=== PATIENT | female | born 1940 | race Caucasian/White ===

== ENCOUNTER → 2020-08-07 13:08 | Outpatient (BNVA) | payer MEDICARE, SELFPAY | PROVIDERS: PCP Internal Medicine; Referring Provider Internal Medicine; Visit Provider Internal Medicine | DX: I26.99 Other pulmonary embolism without acute cor pulmonale (principal); Z51.81 Encounter for therapeutic drug level monitoring; Z79.01 Long term (current) use of anticoagulants | CPT/HCPCS: 85610 ==

== ENCOUNTER → 2020-08-11 08:46 | Outpatient (REF) | payer MEDICARE, SELFPAY | LOC: HO.SL 08:46 | PROVIDERS: PCP Internal Medicine; Visit Provider Internal Medicine | DX: Z13.89 Encounter for screening for other disorder (principal) ==

== ENCOUNTER → 2020-08-18 09:51 | Outpatient (BNVA) | payer MEDICARE, SELFPAY | PROVIDERS: PCP Internal Medicine; Visit Provider Orthopaedic Surgery | DX: Z76.89 Persons encountering health services in other specified circumstances (principal) ==

== ENCOUNTER 2020-08-27 10:41 | Outpatient (REF) | payer MEDICARE, SELFPAY ==
--- NOTE | 2020-08-27 10:47 | MM_ITS ---
EXAMINATION: MM SCREENING DIGITAL BREAST TOMOSYNTHESIS, LEFT CLINICAL INFORMATION: Screening. Asymptomatic. Status post right mastectomy. COMPARISON: Mammography: August 22, 2019 and studies dating back to August 15, 2015 TECHNIQUE: Digital breast tomosynthesis is performed in both the craniocaudal and mediolateral oblique views along with computer-aided detection (CAD). Synthesized 2D images are generated from the tomosynthesis. Exaggerated craniocaudal view also performed. FINDINGS: The breasts are heterogeneously dense, which may obscure small masses (ACR BI-RADS breast composition Category c). There are no significant masses, abnormal calcifications, or other abnormalities. MM/MM tomosynthesis screening LT IMPRESSION: There are no significant changes from prior study. ASSESSMENT: BI-RADS 1: Negative RECOMMENDATION: Routine annual mammography screening. This patient's information was entered into a reminder system with a target due date for their next mammogram.
--- NOTE | 2020-08-27 10:47 | MM_ITS ---
EXAMINATION: BONE DENSITOMETRY CLINICAL INDICATION: Age-related osteoporosis without current pathological fracture. COMPARISON: Previous BD dated 08/18/2017 and baseline BD dated 01/10/2009. TECHNIQUE: Using a [employer] DXA System (software version: 13.1) manufactured by [employer], dual-energy x-ray absorptiometry was performed of the lumbar spine and left hip. The images are of good technical quality. Summary results are attached. FINDINGS: AP SPINE L1-L4: Current: BMD 0.975 g/cm2, Z-score 0.3, T-score -1.7, osteopenia, 8.9% increase from previous, 2.7% increase from baseline (<5% change is not significant). Prior: BMD 0.895 g/cm2. Baseline: BMD 0.949 g/cm2. LEFT FEMUR, NECK: Current: BMD 0.762 g/cm2, Z-score 0.2, T-score -2.0, osteopenia. Prior: BMD 0.800 g/cm2. Baseline: BMD 0.861 g/cm2. LEFT FEMUR, TOTAL: Current: BMD 0.806 g/cm2, Z-score 0.4, T-score -1.6, osteopenia, 6.5% decrease from previous, 15.2% decrease from baseline (<5% change is not significant). Prior: BMD 0.862 g/cm2. Baseline: BMD 0.950 g/cm2. IDENTIFIED RISK FACTORS: Rheumatoid arthritis. Renal disease. Low calcium intake. Secondary osteoporosis (early menopause). Hysterectomy. Bilateral oophorectomy. Thiazide. HISTORY OF FRACTURE: None listed. MEDICATIONS: Calcium supplement and/or multivitamin. MM/XR DEXA axial skeleton IMPRESSION: 1. DIAGNOSIS: Osteopenia based on the lowest T-score value of -2.0 in the femoral neck applying World Health Organization criteria. 2. 10-YEAR FRACTURE RISK PREDICTION, FRAX: Major osteoporotic fracture (clinical spine, forearm, hip or shoulder) 17.9%. Hip fracture 5.7%. 3. Treatment Recommendations: NOF guidelines recommend consideration for treatment in postmenopausal women and men age 50 and older presenting with the following: -A hip or vertebral (clinical or morphometric) fracture. -T-score less than or equal to -2.5 at the femoral neck or spine after appropriate evaluation to exclude secondary causes. -Low bone mass at the hip or spine and a 10-year fracture probability by FRAX of greater than or equal to 3% for hip fracture or greater than or equal to 20% for major osteoporotic fracture based on the [place] adapted WHO algorithm. 4. Other Recommendations: All treatment decisions require clinical judgment and consideration of individual patient factors, including patient preferences, comorbidities, previous drug use, risk factors not captured in the FRAX model (e.g. frailty, falls, vitamin D deficiency, increased bone turnover, interval significant decline in bone density) and possible under or overestimation of fracture risk by FRAX. Additional medical evaluation for secondary cause of low bone mineral density may be appropriate. FUTURE SCAN RECOMMENDATION: People with diagnosed cases of osteoporosis or at high risk for fracture should have regular bone mineral density tests. For patients eligible for Medicare, routine testing is allowed once every 2 years. The testing frequency can be increased to one year for patients who have rapidly progressing disease, those who are receiving or discontinuing medical therapy to restore bone mass, or have additional risk factors.
== END 2020-08-27 10:42 | disposition home or self-care (01) ==
LOC: HO.MAMMO 10:41
PROVIDERS: PCP Internal Medicine; Visit Provider Internal Medicine
DX: K22.70 Barrett's esophagus without dysplasia (principal); Z86.711 Personal history of pulmonary embolism; I10 Essential (primary) hypertension; R32 Unspecified urinary incontinence; Z85.3 Personal history of malignant neoplasm of breast; E83.42 Hypomagnesemia; M81.0 Age-related osteoporosis without current pathological fracture; Z12.31 Encounter for screening mammogram for malignant neoplasm of breast
CPT/HCPCS: 77067; 77080; 85610

== ENCOUNTER 2020-09-01 11:09 | Outpatient (REF) | payer MEDICARE, SELFPAY ==
[2020-09-01 14:11] LABS: MANUAL DIFF FLAG NO
[2020-09-01 14:18] LABS: Basophils Percent Auto 0.5 % (0-2); Eosinophils Percent Auto 0.3 % (0-4); Hemoglobin 12.8 g/dl (12.0-16.0); Imm Gran Abs Auto 0.03 X10*3/uL (0.00-0.03); Imm Gran Pct Auto 0.5 % (0.0-0.4); Lymphocytes Absolute Auto 1.2 X10*3/uL (1.2-4.9); Lymphocytes Percent Auto 18.3 % (20-40); Mean Corpuscular HGB Conc 33.7 g/dl (31.0-35.0); Mean Corpuscular Hemoglobin 35.7 pg (27.0-33.0); Mean Corpuscular Volume 105.8 fL (80-98); Mean Platelet Volume 11.2 fL (9.4-12.3); Monocytes Absolute Auto 0.7 X10*3/uL (0.1-1.2); Monocytes Percent Auto 10.6 % (2-11); Neutrophils Absolute Auto 4.6 X10*3/uL (2.0-8.3); Neutrophils Percent Auto 69.8 % (45-73); Platelet Count 164 X10*3/uL (160-400); Red Blood Count 3.59 X10*6/uL (4.20-5.50); Red Cell Distribution Width 14.4 % (11.0-16.0); White Blood Count 6.5 X10*3/uL (4.8-10.8)
[2020-09-01 14:48] LABS: Anion Gap 18 (12-20); Blood Urea Nitrogen 16 mg/dL (9-16); Calcium 8.9 mg/dL (8.4-10.2); Carbon Dioxide 24 mmol/L (22-29); Chloride 97 mmol/L (96-108); Estimated Glomerular Filt Rate 41; Glucose Random 97 mg/dL (60-115); Sodium 135 mmol/L (135-145)
== END 2020-09-01 11:10 | disposition home or self-care (01) ==
LOC: HO.HMGCLDS 11:09
PROVIDERS: PCP Internal Medicine; Visit Provider Physician Assistant
DX: Z01.812 Encounter for preprocedural laboratory examination (principal); Z79.01 Long term (current) use of anticoagulants
CPT/HCPCS: 36415; 80048; 85025

== ENCOUNTER → 2020-09-09 11:28 | Outpatient (REF) | payer MEDICARE, SELFPAY ==
--- NOTE | 2020-09-09 11:39 | ECG_ITS ---
Test Reason : PRE OP SOB HTN Blood Pressure : / mmHG Vent. Rate : 087 BPM Atrial Rate : 087 BPM P-R Int : 148 ms QRS Dur : 088 ms QT Int : 384 ms P-R-T Axes : 062 018 048 degrees QTc Int : 462 ms Normal sinus rhythm Normal ECG When compared with ECG of 05-DEC-2019 12:40, No significant change was found Referred By: Joey Adams Electronically Signed By:DENISHA YANCEY MD
== END ==
LOC: HO.CARD 11:28
PROVIDERS: PCP Internal Medicine; Visit Provider Physician Assistant
DX: Z01.812 Encounter for preprocedural laboratory examination (principal); Z01.810 Encounter for preprocedural cardiovascular examination; C50.919 Malignant neoplasm of unspecified site of unspecified female breast
CPT/HCPCS: 93005

== ENCOUNTER 2020-09-12 13:00 | Outpatient (RCR) | payer MEDICARE, SELFPAY ==
--- NOTE | 2020-09-01 12:07 | MHC.PT.EP ---
[facility] [place] Office [place] Office [place] Office [address] To[place] Montoya [address] [phone] F: [phone] F: [phone] F: [phone] F: [phone] Physical Therapy Plan of Care Date of Evaluation: 09/01/20 Date of Surgery: 09/22/2020 Diagnosis: M17:12 Unilateral primary osteoarthritis, left knee Assessment: 79 y/o female referred to PT with L knee unilateral primary OA. She has had L knee pain for a few years and is scheduled for L TKA 09/22/2020. Of note, PMH significant for R TKA 2015, R breast CA s/p masectomy 2009, HTN, neuropathy, and vascular issues B LE. Currently she has pain and difficulty with walking > 10min, ascending/descending stairs (step to pattern and uses B UE on one rail), transfers, and balance. Examination shows decreased L knee AROM (0-18-120), decreased L LE strength, decreased L patella hypomobility, and impaired gait pattern. Recommend 3-4 visits of physical therapy for prehab of TKA to work on knee ROM/strength, gait and stair training. Frequency and Duration: The patient will be seen 2x/week for 2 weeks Short Term Goals: 1. Initiate HEP 2. Demonstrate SLR 2 x10 R (IR: 5Reps) Environmental Marketing Representative Goals: 2 weeks: 1. I with HEP 2. Improved gait with step through pattern Treatment Plan: Modalities to reduce pain, spasms and effusion. Manual therapy to restore motion and function. Therapeutic exercise to improve strength and flexibility. Neuromuscular re-education for posture and balance. Therapeutic activities to return to functional activities of daily living. Please sign and return to therapist. Thank you for your referral.
--- NOTE | 2020-09-12 15:19 | MHC.PT.DC ---
[facility] [place] Office [place] Office [place] Office [address] Toñito Montoya [address] [phone] F: [phone] F: [phone] F: [phone] F: [phone] Physical Therapy Discharge Report Diagnosis: M17:12 Unilateral primary osteoarthritis, left knee Date of Surgery: 09/22/2020 Date of Evaluation: 09/01/20 Date of Discharge: 09/12/20 Treatments to Date: 2 Cancellations to Date: 0 No Shows to Date: 0 Discharge Status: Independent with HEP Discharge Summary: Reviewed TKA expectations and HEP to continue with until surgery. Cues for isometrics holds with SLR. REviewed HEP handout and no further questions at this time. Electronically signed by: Catherine Okeefe DPDoris Please sign and return to therapist. Thank you for your referral.
== END 2020-09-12 15:20 | disposition other institution (70) ==
LOC: HO.PTCHIC 13:00
PROVIDERS: Visit Provider Physician Assistant
DX: M17.12 Unilateral primary osteoarthritis, left knee (principal)
CPT/HCPCS: 97110; 97162

== ENCOUNTER → 2020-09-17 11:56 | Outpatient (BNVA) | payer MEDICARE, SELFPAY | PROVIDERS: PCP Internal Medicine; Visit Provider Physician Assistant | DX: M17.12 Unilateral primary osteoarthritis, left knee (principal) | CPT/HCPCS: 99212 ==

== ENCOUNTER → 2020-09-23 13:06 | Outpatient (BNVA) | payer MEDICARE, SELFPAY | PROVIDERS: PCP Internal Medicine; Visit Provider Internal Medicine | DX: I26.99 Other pulmonary embolism without acute cor pulmonale (principal); Z51.81 Encounter for therapeutic drug level monitoring; Z79.01 Long term (current) use of anticoagulants | CPT/HCPCS: 85610; 99211 ==

== ENCOUNTER → 2020-09-24 10:30 | Outpatient (BNV) | payer MEDICARE, SELFPAY | PROVIDERS: PCP Internal Medicine; Visit Provider Internal Medicine Medical Oncology | DX: Z85.3 Personal history of malignant neoplasm of breast (principal); M81.0 Age-related osteoporosis without current pathological fracture; E53.8 Deficiency of other specified B group vitamins | CPT/HCPCS: 99213; 99214; 99442 ==

== ENCOUNTER 2020-10-03 13:03 | Outpatient (REF) | payer MEDICARE, SELFPAY | END 2020-10-03 13:04 | disposition home or self-care (01) | LOC: HO.LAB 13:03 | PROVIDERS: PCP Internal Medicine; Visit Provider Internal Medicine | DX: Z01.818 Encounter for other preprocedural examination (principal); Z79.01 Long term (current) use of anticoagulants | CPT/HCPCS: 85610; 99211 ==

== ENCOUNTER 2020-10-06 07:45 | Inpatient (IN) | payer MEDICARE, SELFPAY ==
[2020-09-10 09:58] VITALS: BMI 23.6
--- NOTE | 2020-09-11 11:44 | P.CONAN_ITS ---
HPI - Anesthesia Eval Consult details Narrative: 79yo F for Knee Replacement Total, LEFT s/p R TKA 2016 - spinal, nerve block; pt recalls waking breifly during case. (Reports 1 drink nightly) PCP cleared. 09/22/20 - surgery cx'd d/t scratch on leg. Also, pt continued to take warfarin preop with lovenox. [facility] Past Medical History Medical History B12 deficiency Fatty liver, alcoholic GERD (gastroesophageal reflux disease) History of alcohol use History of pulmonary embolism History of right breast cancer HTN (hypertension) Hx of deep venous thrombosis Hx of hypercalcemia Hx of metabolic acidosis Hx of tuberculosis Hypomagnesemia Osteoarthritis Family History Family History Father No problems noted. Mother No problems noted. Surgical History Surgical History H/O right mastectomy History of appendectomy History of cataract surgery History of cystoscopy History of esophagogastroduodenoscopy (EGD) History of evacuation of hematoma History of knee replacement procedure of right knee History of lumpectomy of right breast History of tonsillectomy Hx of adenoidectomy Hx of colonoscopy S/P SASHA-BSO (total abdominal hysterectomy and bilateral salpingo-oophorectomy) Social History Social History (Updated 09/17/20 @ 12:24 by Moira Rodgers CMA) Alcohol intake: current Alcohol intake frequency: 0-2 drinks per day Alcohol type: wine Smoking Status: Never smoker Advance Directives Date on File: 09/11/20 Narrative Narrative: No recent illness No CP. HAIR with stairs, carrying laundry. Meds Allergies Allergy/AdvReac Type Severity Reaction Status Date / Time cortisone [Cortisone] Allergy Mild PT STATES Verified 09/23/20 13:23 IT COULD AFFECT HS TB CYSTALS IN,LUNG prochlorperazine Allergy Mild LEG Verified 09/23/20 13:23 [From Compazine] NUMBNESS hydrochlorothiazide Allergy Unknown RASH Verified 09/23/20 13:23 levofloxacin [Levaquin] Allergy Unknown Wakefulness, Verified 09/23/20 13:23 nausea, shaking codeine AdvReac Unknown NAUSEA/VOMI Verified 09/23/20 13:23 TING chocolate Allergy Unknown severe Uncoded 08/18/20 15:35 headaches/vomiting Home Medications Medication Instructions Recorded Confirmed Type fesoterodine 4 mg tablet,extended 4 mg PO DAILY 09/09/20 09/11/20 History release 24 hr metoprolol tartrate 25 mg tablet 25 mg PO BID 09/09/20 09/11/20 History famotidine 20 mg tablet 20 mg PO BID tab 09/11/20 09/11/20 History magnesium oxide 400 mg (241.3 mg 400 mg PO BID tab 09/11/20 09/11/20 History magnesium) tablet Exam Exam Date and Time: September 11, 2020 1144 Height,Weight and Vital Signs: Height 5 ft 3 in Weight 60.328 kg Pertinent Lab Results Pertinent Lab Results: Laboratory Tests 09/01/20 09/01/20 11:21 11:21 WBC 6.5 Hgb 12.8 Hct 38.0 Plt Count 164 Sodium 135 Potassium 4.0 Chloride 97 Carbon Dioxide 24 BUN 16 Creatinine 1.26 Laboratory Tests 09/11/20 14:20 Blood Type O Positive Antibody Screen NEGATIVE Narrative Narrative: EKG: NSR@87 ECHO 02/2019: LVEF 60-65%, Mod to severe elevation of RV sys pressure, mod tricuspid regurg Airway Mallampati Class: I TM Dist: >3cm Neck ROM: Full Loose/Missing/Broken Teeth: No Heart: RRR Lungs: CTAB Assessment and Plan Assessment Anesthesia Assessment: Anesthesia Plan Discussed (Spinal,block) and PAT Visit
[2020-09-11 13:06] VITALS: BMI 23.0
[2020-09-11 14:23] VITALS: BP 134/92; PULSE 84; RESP 16; O2SAT 98
[2020-09-11 15:28] LABS: MRSA Nasal PCR NEGATIVE (Negative); SA Nasal PCR NEGATIVE (Negative)
[2020-09-11 15:38] LABS: Magnesium 1.7 mg/dL (1.6-2.6)
--- NOTE | 2020-09-22 07:35 | PC.NURSE ---
patient has a scabbed scratch on her left knee. took a picture and sent to md jaeger. patient is to be cancelled.
[2020-09-22 08:00] LABS: Partial Thromboplastin Time 58.6 SEC (24.1-38.0)
--- NOTE | 2020-10-03 11:42 | HO.ANESPROP2 ---
Documented by User: Elizabeth Kendrick 10/03/20 11:46 HPI - Anesthesia Eval Consult details Narrative: 79yo F for Knee Replacement Total, LEFT s/p R TKA 2016 - spinal, nerve block; pt recalls waking breifly during case. (Reports 1 drink nightly) PCP cleared. 09/22/20 - surgery cx'd d/t scratch on leg. Also, pt continued to take warfarin preop with lovenox. [facility] Past Medical History Medical History B12 deficiency Fatty liver, alcoholic GERD (gastroesophageal reflux disease) History of alcohol use History of pulmonary embolism History of right breast cancer HTN (hypertension) Hx of deep venous thrombosis Hx of hypercalcemia Hx of metabolic acidosis Hx of tuberculosis Hypomagnesemia Osteoarthritis Family History Family History Father No problems noted. Mother No problems noted. Surgical History Surgical History H/O right mastectomy History of appendectomy History of cataract surgery History of cystoscopy History of esophagogastroduodenoscopy (EGD) History of evacuation of hematoma History of knee replacement procedure of right knee History of lumpectomy of right breast History of tonsillectomy Hx of adenoidectomy Hx of colonoscopy S/P SASHA-BSO (total abdominal hysterectomy and bilateral salpingo-oophorectomy) Social History Social History Are you a primary resident care spec to a significant other at home: No Do you presently have visiting nurse or other home services: No Alcohol intake: current Alcohol intake frequency: 0-2 drinks per day Alcohol type: wine Smoking Status: Never smoker Use of substances other than those prescribed or required for medical reasons: No Have you been hit, kicked, punched, or otherwise hurt by someone within the past year? If so, by whom?: No Spiritual Healthcare Practices: none Confucianism Healthcare Practices: none Cultural Healthcare Practices: none Advance Directives: No Advance Directives Information Provided: No Advance Directives on File: Yes Advance Directives Date on File: 09/11/20 Recently lost weight without trying: No Meds Allergies Allergy/AdvReac Type Severity Reaction Status Date / Time cortisone [Cortisone] Allergy Mild PT STATES Verified 09/23/20 13:23 IT COULD AFFECT HS TB CYSTALS IN,LUNG prochlorperazine Allergy Mild LEG Verified 09/23/20 13:23 [From Compazine] NUMBNESS hydrochlorothiazide Allergy Unknown RASH Verified 09/23/20 13:23 levofloxacin [Levaquin] Allergy Unknown Wakefulness, Verified 09/23/20 13:23 nausea, shaking codeine AdvReac Unknown NAUSEA/VOMI Verified 09/23/20 13:23 TING chocolate Allergy Unknown severe Uncoded 08/18/20 15:35 headaches/vomiting Home Medications Medication Instructions Recorded Confirmed Type fesoterodine 4 mg tablet,extended 4 mg PO DAILY 09/09/20 10/03/20 History release 24 hr metoprolol tartrate 25 mg tablet 25 mg PO BID 09/09/20 10/03/20 History famotidine 20 mg tablet 20 mg PO BID tab 09/11/20 10/03/20 History magnesium oxide 400 mg (241.3 mg 400 mg PO BID tab 09/11/20 10/03/20 History magnesium) tablet Exam Exam Date and Time: October 03, 2020 1142 Height,Weight and Vital Signs: Height 5 ft 3 in Weight 58.967 kg Last Vital Signs Pulse 84 09/11/20 14:23 Resp 16 09/11/20 14:23 BP 134/92 H 09/11/20 14:23 Pulse Ox 98 09/11/20 14:23 Pertinent Lab Results Pertinent Lab Results: Laboratory Tests 09/11/20 09/11/20 09/11/20 14:00 14:20 14:30 APTT Magnesium 1.7 Nasal Screen MRSA (PCR) NEGATIVE Nasal S. aureus Screen NEGATIVE Nasal MRSA/S.aureus Interp SEE NOTE Blood Type O Positive Antibody Screen NEGATIVE 09/22/20 07:33 APTT 58.6 H Magnesium Nasal Screen MRSA (PCR) Nasal S. aureus Screen Nasal MRSA/S.aureus Interp Blood Type Antibody Screen Laboratory Tests 09/01/20 09/01/20 11:21 11:21 WBC 6.5 Hgb 12.8 Hct 38.0 Plt Count 164 Sodium 135 Potassium 4.0 Chloride 97 Carbon Dioxide 24 BUN 16 Creatinine 1.26 Narrative Narrative: EKG: NSR@87 ECHO 02/2019: LVEF 60-65%, Mod to severe elevation of RV sys pressure, mod tricuspid regurg Airway Mallampati Class: I TM Dist: >3cm Neck ROM: Full Loose/Missing/Broken Teeth: No Heart: RRR Lungs: CTAB Other: Airway exam done at [facility] 09/11/2020 by HT Assessment and Plan Assessment Anesthesia Assessment: [facility] Visit (09/11/2020) Documented by User: Claude Sin MD 10/06/20 09:41 [facility] Past Medical History Medical History B12 deficiency Fatty liver, alcoholic GERD (gastroesophageal reflux disease) History of alcohol use History of pulmonary embolism History of right breast cancer HTN (hypertension) Hx of deep venous thrombosis Hx of hypercalcemia Hx of metabolic acidosis Hx of tuberculosis Hypomagnesemia Osteoarthritis Family History Family History Father No problems noted. Mother No problems noted. Surgical History Surgical History H/O right mastectomy History of appendectomy History of cataract surgery History of cystoscopy History of esophagogastroduodenoscopy (EGD) History of evacuation of hematoma History of knee replacement procedure of right knee History of lumpectomy of right breast History of tonsillectomy Hx of adenoidectomy Hx of colonoscopy S/P SASHA-BSO (total abdominal hysterectomy and bilateral salpingo-oophorectomy) Social History Social History Are you a primary resident care spec to a significant other at home: No Do you presently have visiting nurse or other home services: No Alcohol intake: current Alcohol intake frequency: 0-2 drinks per day Alcohol type: wine Smoking Status: Never smoker Use of substances other than those prescribed or required for medical reasons: No Have you been hit, kicked, punched, or otherwise hurt by someone within the past year? If so, by whom?: No Spiritual Healthcare Practices: none Confucianism Healthcare Practices: none Cultural Healthcare Practices: none Advance Directives: No Advance Directives Information Provided: No Advance Directives on File: Yes Advance Directives Date on File: 09/11/20 Recently lost weight without trying: No Meds Allergies Allergy/AdvReac Type Severity Reaction Status Date / Time cortisone [Cortisone] Allergy Mild PT STATES Verified 09/23/20 13:23 IT COULD AFFECT HS TB CYSTALS IN,LUNG prochlorperazine Allergy Mild LEG Verified 09/23/20 13:23 [From Compazine] NUMBNESS hydrochlorothiazide Allergy Unknown RASH Verified 09/23/20 13:23 levofloxacin [Levaquin] Allergy Unknown Wakefulness, Verified 09/23/20 13:23 nausea, shaking codeine AdvReac Unknown NAUSEA/VOMI Verified 09/23/20 13:23 TING chocolate Allergy Unknown severe Uncoded 08/18/20 15:35 headaches/vomiting Home Medications Medication Instructions Recorded Confirmed Type fesoterodine 4 mg tablet,extended 4 mg PO DAILY 09/09/20 10/03/20 History release 24 hr metoprolol tartrate 25 mg tablet 25 mg PO BID 09/09/20 10/03/20 History famotidine 20 mg tablet 20 mg PO BID tab 09/11/20 10/03/20 History magnesium oxide 400 mg (241.3 mg 400 mg PO BID tab 09/11/20 10/03/20 History magnesium) tablet Assessment and Plan Assessment Anesthesia Assessment: Anesthesia Plan Discussed and Chart Reviewed Final Anesthetic Review NPO: Yes ASA Class: III Final Preanesthetic Review: No Changes in Pt Med Stat, Meds/Allgs Chart Reviewed, Consent Obtained/Reviewed and Anes Risks/Benef Reviewed Patient Risk: Intermediate Procedure Risk: Intermediate Anesthetic Plan Anesthetic Plan: GA and Regional Block Disposition: Standard PACU
[2020-10-06] VITALS (14 sets, daily range): BP systolic 92–151; BP diastolic 48–74; PULSE 72–91; RESP 14–20; TEMP 35.6–36.9; O2SAT 99–100
--- NOTE | 2020-10-06 07:43 | MHC.SHP ---
Pre-Procedural Eval Section A The patient is an INPATIENT: No Changes since office visit: No Cold of Flu in the past 2 weeks, No New Medical Problems, No Changes in Medication and No Patient answered all questions The History & Physical has been completed within 30 days and I have reviewed it.: Yes Section B Chief Complaint: Left Knee Osteoarthritis Allergies: Allergies Allergy/AdvReac Type Severity Reaction Status Date / Time cortisone [Cortisone] Allergy Mild PT STATES Verified 09/23/20 13:23 IT COULD AFFECT HS TB CYSTALS IN,LUNG prochlorperazine Allergy Mild LEG Verified 09/23/20 13:23 [From Compazine] NUMBNESS hydrochlorothiazide Allergy Unknown RASH Verified 09/23/20 13:23 levofloxacin [Levaquin] Allergy Unknown Wakefulness, Verified 09/23/20 13:23 nausea, shaking codeine AdvReac Unknown NAUSEA/VOMI Verified 09/23/20 13:23 TING chocolate Allergy Unknown severe Uncoded 08/18/20 15:35 headaches/vomiting Plan Patient has been examined and remains a candidate for the planned procedure
[2020-10-06 08:25] LABS: COVID-19 Test Negative (Negative)
[2020-10-06] MEDS: ceFAZolin Sodium/Dextrose,Iso 2 GM/50 ML PIGGYBACK IV ×2 (08:54→17:28)
[2020-10-06] MEDS: Lactated Ringers 1,000 ML 100 ML IVCONT ×2 (08:55→17:26)
--- NOTE | 2020-10-06 11:18 | P.PCNOP_ITS ---
Brief Operative Note Date of procedure: 10/06/20 Pre-op diagnosis: OA LEFT KNEE Post-op diagnosis: same Procedure: LEFT TKA Anesthesia: GETA Surgeon: Art Hendrix Paper Machine Operator: Joey Adams Estimated blood loss (mL): 30 Condition: stable Disposition: PACU
[2020-10-06] MEDS: oxyCODONE HCl Immed Release 5 MG TABLET PO (12:09)
--- NOTE | 2020-10-06 15:15 | PM.IMCN ---
History of Present Illness Data of Consult Service Date: 10/06/20 Requesting physician: Art Hendrix Primary Care Provider: Unknown Physician HPI Reason for consult: Medical Management 79 year old women admitted by orthopedic surgery and is status post left knee arthroplasty. Her blood pressure was noted to be on the low side at 92/50, IV fluids bolus was administered. She reported moderate amount of pain. No other acute medical complaints. Review of Systems Review of Systems: Denies any recent fever chills or decrease in appetite respiratory denies any shortness of breath coverage production cardiovascular is adjustment of any PND or edema gastrointestinal denies any dysphagia abdominal pain nausea vomiting or diarrhea genitourinary denies any dysuria frequency or hematuria musculoskeletal see above neuropsych denies any weakness or seizures all other systems reviewed are negative [facility] Medical History B12 deficiency Fatty liver, alcoholic GERD (gastroesophageal reflux disease) History of alcohol use History of pulmonary embolism History of right breast cancer HTN (hypertension) Hx of deep venous thrombosis Hx of hypercalcemia Hx of metabolic acidosis Hx of tuberculosis Hypomagnesemia Osteoarthritis Family History Father No problems noted. Mother No problems noted. Surgical History H/O right mastectomy History of appendectomy History of cataract surgery History of cystoscopy History of esophagogastroduodenoscopy (EGD) History of evacuation of hematoma History of knee replacement procedure of right knee History of lumpectomy of right breast History of tonsillectomy Hx of adenoidectomy Hx of colonoscopy S/P SASHA-BSO (total abdominal hysterectomy and bilateral salpingo-oophorectomy) Social History Are you a primary caretaker resort to a significant other at home: No Do you presently have visiting nurse or other home services: No Alcohol intake: current Alcohol intake frequency: 0-2 drinks per day Alcohol type: wine Smoking Status: Never smoker Use of substances other than those prescribed or required for medical reasons: No Have you been hit, kicked, punched, or otherwise hurt by someone within the past year? If so, by whom?: No Spiritual Healthcare Practices: none Evangelical Healthcare Practices: none Cultural Healthcare Practices: none Advance Directives: No Advance Directives Information Provided: No Advance Directives on File: Yes Advance Directives Date on File: 09/11/20 Recently lost weight without trying: No Meds Allergies Allergy/AdvReac Type Severity Reaction Status Date / Time cortisone [Cortisone] Allergy Mild PT STATES Verified 09/23/20 13:23 IT COULD AFFECT HS TB CYSTALS IN,LUNG prochlorperazine Allergy Mild LEG Verified 09/23/20 13:23 [From Compazine] NUMBNESS hydrochlorothiazide Allergy Unknown RASH Verified 09/23/20 13:23 levofloxacin [Levaquin] Allergy Unknown Wakefulness, Verified 09/23/20 13:23 nausea, shaking codeine AdvReac Unknown NAUSEA/VOMI Verified 09/23/20 13:23 TING chocolate Allergy Unknown severe Uncoded 08/18/20 15:35 headaches/vomiting Home Medications Medication Instructions Recorded Confirmed Type fesoterodine 4 mg tablet,extended 4 mg PO BEDTIME 09/09/20 10/06/20 History release 24 hr metoprolol tartrate 25 mg tablet 25 mg PO BID 09/09/20 10/03/20 History famotidine 20 mg tablet 40 mg PO BID tab 09/11/20 10/06/20 History folic acid 1 mg PO DAILY 10/06/20 10/06/20 History gabapentin 300 mg PO DAILY 10/06/20 10/06/20 History magnesium oxide 400 mg PO BID 10/06/20 10/06/20 History mirabegron [Myrbetriq] 50 mg PO BEDTIME 10/06/20 10/06/20 History warfarin 2 mg PO SUTUTHSA@1800 10/06/20 10/06/20 History warfarin 4 mg PO MOWEFR@1800 10/06/20 10/06/20 History Physical Exam Vital Signs and Narrative: Vital Signs: Last Vital Signs Temp 96.7 F L 10/06/20 13:07 Pulse 80 10/06/20 13:07 Resp 20 10/06/20 13:07 BP 98/54 L 10/06/20 13:07 Pulse Ox 99 10/06/20 13:07 Body Mass Index 23.0 Appearing in no acute distress head is normocephalic atraumatic eyes pupils are PERRLA sclera is anicteric mouth throat mucous membranes are intact and moist neck is supple no lymphadenopathy, no JVD noted lung sounds are clear to auscultation heart regular rate rhythm, clear S1, S2 positive bowel sounds, abdomen is soft, nontender neuro patient is alert x3, no focal deficits MSK Dressing clean and intact. Results Labs Labs: Laboratory Results - last 24 hr 10/03/20 10/06/20 14:30 07:55 SARS-CoV-2 (PCR) NOT DETECTED COVID-19 ([facility]) Negative COVID-19 Clin Com See Note Assessment and Plan (1) Osteoarthritis of left knee: Qualifiers: Osteoarthritis type: primary Qualified Code(s): M17.12 - Unilateral primary osteoarthritis, left knee Status: Acute 79 year old women admitted by orthopedic surgery and is status post left knee arthroplasty Left knee arthroplasty. Management as per surgical team. Pain management. Hypotension. Mild, likely post-operative. Hold home medications. IV fluids bolus. GERD. PPI Hx of DVT/PE. Continue warfarin and Lovenox bridge tommorrow. DVT prophylaxis as per surgical team. Discussed with Dr. Olmstead Full code
[2020-10-06] MEDS: 0.9 % Sodium Chloride 1,000 ML 999 ML IVCONT (16:17)
[2020-10-06] MEDS: 0.9 % Sodium Chloride Flush 3 ML SYRINGE IVFLUSH ×2 (16:21→20:34)
[2020-10-06] MEDS: Acetaminophen 325 MG TABLET 650 MG PO ×2 (16:35→22:23)
[2020-10-06] MEDS: oxyCODONE HCl Immed Release 5 MG TABLET 10 MG PO (18:05)
[2020-10-06] MEDS: Ketorolac Tromethamine 15 MG/ML VIAL IVPUSH (18:05)
[2020-10-06] MEDS: Morphine Sulfate 2 MG/ML CARTRIDGE IVPUSH (19:28)
[2020-10-06] MEDS: Magnesium Oxide 400 MG TABLET PO (20:34)
--- NOTE | 2020-10-06 21:39 | OP_ITS ---
SURGEON: Art Hendrix MD PREOPERATIVE DIAGNOSIS: Osteoarthritis, left knee. POSTOPERATIVE DIAGNOSIS: Osteoarthritis, left knee. PROCEDURE PERFORMED: Left total knee arthroplasty - NexGen CR-Flex GSF, size E, left femur, 5 x 10 mm monoblock tibial component, 32 mm monoblock patellar component. ESTIMATED BLOOD LOSS: COMPLICATIONS: ANESTHESIA: ASSISTANTS: MIRTA Pichardo SPECIMENS: CLINICAL NOTE: This lady who had a right total knee arthroplasty done a while ago has returned with the same problem involving the left. She had failed nonoperative management. Therefore, after explaining the risks, benefits, and alternatives and answering all the questions, it was mutually agreed upon to carry out the following procedure. DESCRIPTION OF PROCEDURE: Under a general anesthetic and a regional block, the patient was placed supine on the operating table. A pneumatic tourniquet cuff was placed around the upper left thigh, inflated to 300 mmHg at the beginning of the case. The left knee was prepped and draped in standard fashion with the left leg free. Surgical time-out was then performed, patient identified, procedure confirmed, site confirmed. Medical analogy and history were reviewed. Preoperative antibiotics were given. Standard DVT prophylaxis in place. All other items were discussed and agreed upon. Standard midline incision of the knee was carried out, taken down through subcutaneous tissues. Hemostasis was achieved along the way using electrocautery, brought down to the level of the extensor mechanism, where a medial parapatellar arthrotomy in a subvastus technique was then performed. The patella was retracted to lateral gutter. Soft tissue elevated from the anterior aspect of the femur subperiosteally. At the level of the tibia, the soft tissue elevated on the medial side protecting the medial-sided soft tissues and a portion of the meniscus was excised. On the lateral side, portion of the fat pad was excised, portion of the meniscus excised. Soft tissue was elevated protecting the lateral-sided soft tissues, and the ACL was resected. We then turned our attention to the femur. Standard intramedullary hole was established. Cutting guide was set for 5 degrees of valgus with standard cut. The surface was resected flat. The sizing guide was then used. It sized to a size E and the 30-degree external rotation pins were set. The all-in-one cutting guide for the E was centered over the distal cut. Following this, the anterior and anterior chamfer, posterior and posterior chamfer, and patellar recess cuts were all made. The bony fragments were all removed. We turned our attention to the tibia. The remainder of the medial and lateral menisci were excised. The PCL was recessed. The extramedullary guide was used in standard fashion resting the tibial tubercle, subcutaneous port of the tibia, and the middle of the ankle. The slope was set. A minimal resection referencing the medial side was set as well and then the surface was resected flat. It sized to a size E, was aligned with the extramedullary guided pin. The 10 mm trial liner was put into place along with the size E left CR-Flex GSF femur. This demonstrated excellent alignment, full extension, full flexion, stable mediolaterally at 0, 30, 60 and 90 degrees of flexion. We then turned our attention to the patella. Soft tissues were elevated circumferentially around the patella, surface was resected flat, sized to a 32. The lug hole was made using the guide. The trial component was put into place. It had centrally tracked and fit well, and therefore, the size E left CR-Flex GSF femur, 5 x 10 mm monoblock tibial component and the 32 mm monoblock patellar component were selected and brought up the table. The trial components were all removed. The area of the lateral geniculate artery was then identified after tourniquet been let down, total tourniquet time 32 minutes. The knee was then thoroughly irrigated. The permanent components were brought up the table. The tibia followed by the femur, followed by the patella were all press-fit into place with excellent fit. The knee was placed through range of motion, had full extension, full flexion, was stable mediolaterally at 0, 30, 60 and 90 degrees of flexion and therefore, we proceeded to closure. Wound was thoroughly irrigated. The extensor mechanism closed with #2 Quill suture. Skin approximated using interrupted 2-0 Dexon. Skin was closed with bettina. Sterile dressing was then applied. The patient's anesthesia was then reversed and transferred supine to the room bed, then taken to recovery room in good condition. Intraoperatively, there was approximately 30 mL blood loss. No complications. MD MECHELLE Carnes/JOSÉ MIGUEL / [id number]
[2020-10-06] MEDS: ondansetron HCL 4 MG/2 ML VIAL IVPUSH (23:13)
[2020-10-07] VITALS (12 sets, daily range): BP systolic 91–136; BP diastolic 42–69; PULSE 96–114; RESP 16–20; TEMP 36.2–36.7; O2SAT 96–100
[2020-10-07] MEDS: Ketorolac Tromethamine 15 MG/ML VIAL IVPUSH ×2 (00:40→05:41)
[2020-10-07] MEDS: Lactated Ringers 1,000 ML 100 ML IVCONT (03:34)
[2020-10-07] MEDS: Acetaminophen 325 MG TABLET 650 MG PO ×3 (03:34→14:53)
--- NOTE | 2020-10-07 03:55 | PC.NURSE ---
pt dtv.has not voided since prior to surgery.oob to commode.unable to void.bladder scanned for 324.st.cathed for 250.
[2020-10-07] MEDS: oxyCODONE HCl Immed Release 5 MG TABLET 10 MG PO ×2 (05:41→18:27)
[2020-10-07 06:31] LABS: Hematocrit 23.4 % (37-47); Hemoglobin 7.8 g/dl (12.0-16.0)
[2020-10-07 06:54] LABS: Anion Gap 14 (12-20); Blood Urea Nitrogen 20 mg/dL (9-16); Calcium 7.3 mg/dL (8.4-10.2); Carbon Dioxide 24 mmol/L (22-29); Chloride 98 mmol/L (96-108); Estimated Glomerular Filt Rate 34; Glucose Random 137 mg/dL (60-115); Potassium 4.2 mmol/l (3.3-5.1); Sodium 132 mmol/L (135-145)
--- NOTE | 2020-10-07 07:00 | XR_ITS ---
EXAMINATION: XR KNEE, LEFT CLINICAL INFORMATION: Postoperative. COMPARISON: 07/22/2020 TECHNIQUE: Four views of the left knee. FINDINGS: Status post total knee arthroplasty. Usual position and alignment of the arthroplasty components. No acute periprosthetic fractures. There is gas in the soft tissues, skin bettina. XR/XR knee LT 2V IMPRESSION: Postsurgical changes status post total knee arthroplasty.
--- NOTE | 2020-10-07 07:47 | PM.PNORT ---
Subjective Subjective Date of Service: 10/07/20 Interval history: POPD1 s/p LTKA pt. states that her pain is well managed. She is resting comfortably in bed. She has been straight cathed last night due to inability to void since surgery. Denies SOB palpitation chest pain. Physical Exam Vital Signs: Vital Signs: Last Vital Signs Temp 97.6 F 10/07/20 03:31 Pulse 99 10/07/20 03:31 Resp 19 10/07/20 03:31 BP 102/54 L 10/07/20 03:31 Pulse Ox 100 10/07/20 00:10 Body Mass Index 23.0 Const: General: cooperative, healthy appearing and no acute distress Resp: Effort & Inspection: normal respiratory effort and able to speak in complete sentences Cardio: Rate: regular rate Peripheral pulses: Peripheral pulses 2+ throughout GI: Inspection: Yes normal to inspection Palpation (GI): Soft to palpation Skin: General skin exam: no rashes or lesions noted Extrem: Other: Significant ecchymosis over the anterior tib, dressing is saturated, NVI, no erythema over the left knee. Progress Note: A&P Assessment and plan (1) Status post left knee replacement: Status: Acute Assessment and Plan: Continue pain mgmnt Hold Lovenox bridge for DVT ppx 2 units PRBC Monitor H+H begin PT for LT TKA Dispo planning-Pending PT eval, pain mgmnt Fall Risk Details Current Medications: Current Medications Generic Name Dose Route Start Last Admin Trade Name Kevanq PRN Reason Stop Dose Admin Acetaminophen 650 mg 10/06/20 14:33 10/07/20 03:34 Acetaminophen 325 Mg Tablet PO 650 mg Q6H ADAM Administration Lactated Ringer's 1,000 mls @ 100 mls/hr 10/06/20 08:30 10/07/20 03:34 Lr IVCONT 100 mls/hr .Q10H ADAM Administration Ketorolac Tromethamine 15 mg 10/06/20 18:00 10/07/20 05:41 Ketorolac Tromethamine 15 Mg/Ml Vial IVPUSH 15 mg Q6H ADAM Administration Magnesium Oxide 400 mg 10/06/20 21:00 10/06/20 20:34 Magnesium Oxide 400 Mg Tablet PO 400 mg BID ADAM Administration Morphine Sulfate 2 mg 10/06/20 14:33 10/06/20 19:28 Morphine Sulfate 2 Mg/Ml Cartridge IVPUSH 2 mg Q2H PRN Administration Pain, Severe (Pain Scale 7-10) Naloxone HCl 0.2 mg 10/06/20 14:33 Naloxone Hcl 0.4 Mg/Ml Vial IVPUSH Q2M PRN Excessive sedation or RR < 8 Ondansetron HCl 4 mg 10/06/20 14:33 10/06/20 23:13 Ondansetron Hcl 4 Mg/2 Ml Vial IVPUSH 4 mg Q8H PRN Administration Nausea and Vomiting Oxycodone HCl 10 mg 10/06/20 18:00 10/07/20 05:41 Oxycodone Hcl Immed Release 5 Mg Tablet PO 10 mg Q6H ADAM Administration Pharmacy Consult 1 each 10/06/20 15:13 Consult Rx Perform Med Rec MISCELLANE ONCE PRN Consult order Sodium Chloride 3 ml 10/06/20 16:00 10/06/20 20:34 0.9 % Sodium Chloride Flush 3 Ml Syringe IVFLUSH 3 ml QSHIFT ADAM Administration Time Spent With Patient Time: Total time spent is greater than 50% in coordination of care (as documented) at patient's floor/unit and/or counseling patient: Time with patient: 15 - 24 minutes
--- NOTE | 2020-10-07 08:40 | HO.POSTANES ---
Post Anesthesia Evaluation Post Anesthesia Evaluation Vital Signs: Vital Signs Temp Pulse Resp BP Pulse Ox 10/07/20 07:48 98.0 F 105 H 16 102/42 L 96 10/07/20 03:31 97.6 F 99 19 102/54 L 10/07/20 00:10 98.1 F 96 19 106/53 L 100 10/06/20 23:44 96.0 F L 90 18 94/50 L 100 Anesthesia: Nerve Block and General Mental Status: Awake Pain Control: Satisfactory Nausea/Vomiting: None Hydration: Adequate Anesthesia-Related Issues: No Anes. Related Issues
[2020-10-07] MEDS: Magnesium Oxide 400 MG TABLET PO ×2 (08:41→21:12)
--- NOTE | 2020-10-07 09:56 | P.PNIM_ITS ---
Subjective Subjective Date of Service: 10/07/20 Interval History: seen and examined this morning reported feeling dizzy with PT denies any chest pain or sob d/w at [facility] re: her blood counts. she denies any bleeding at home ROS General - no fevers or chills Cardiovascular - no chest pain, +dizziness Respiratory - no shortness of breath or cough Abdominal- no abdominal pain, nausea, vomiting, diarrhea Physical Exam Vital Signs: Vital Signs: Last Vital Signs Temp 98.0 F 10/07/20 07:48 Pulse 105 H 10/07/20 07:48 Resp 16 10/07/20 07:48 BP 102/42 L 10/07/20 07:48 Pulse Ox 96 10/07/20 07:48 Body Mass Index 23.0 Const: Other: General - no acute distress, appears comfortable Cardiovascular - regular rate and rhythm, S1-S2 Lungs - normal respiratory effort, clear to auscultation bilaterally, no wheezing Abdomen - soft, nontender, no rebound or guarding Extremities - no edema bilaterally Neuro - awake and alert, no focal deficits Objective Data Current Medications Generic Name Dose Route Start Last Admin Trade Name Freq PRN Reason Stop Dose Admin Acetaminophen 650 mg 10/06/20 14:33 10/07/20 08:40 Acetaminophen 325 Mg Tablet PO 650 mg Q6H ADAM Administration Lactated Ringer's 1,000 mls @ 100 mls/hr 10/06/20 08:30 10/07/20 03:34 Lr IVCONT 100 mls/hr .Q10H ADAM Administration Ketorolac Tromethamine 15 mg 10/06/20 18:00 10/07/20 05:41 Ketorolac Tromethamine 15 Mg/Ml Vial IVPUSH 15 mg Q6H ADAM Administration Magnesium Oxide 400 mg 10/06/20 21:00 10/07/20 08:41 Magnesium Oxide 400 Mg Tablet PO 400 mg BID ADAM Administration Morphine Sulfate 2 mg 10/06/20 14:33 10/06/20 19:28 Morphine Sulfate 2 Mg/Ml Cartridge IVPUSH 2 mg Q2H PRN Administration Pain, Severe (Pain Scale 7-10) Naloxone HCl 0.2 mg 10/06/20 14:33 Naloxone Hcl 0.4 Mg/Ml Vial IVPUSH Q2M PRN Excessive sedation or RR < 8 Ondansetron HCl 4 mg 10/06/20 14:33 10/06/20 23:13 Ondansetron Hcl 4 Mg/2 Ml Vial IVPUSH 4 mg Q8H PRN Administration Nausea and Vomiting Oxycodone HCl 10 mg 10/06/20 18:00 10/07/20 05:41 Oxycodone Hcl Immed Release 5 Mg Tablet PO 10 mg Q6H ADAM Administration Pharmacy Consult 1 each 10/06/20 15:13 Consult Rx Perform Med Rec MISCELLANE ONCE PRN Consult order Sodium Chloride 3 ml 10/06/20 16:00 10/07/20 08:41 0.9 % Sodium Chloride Flush 3 Ml Syringe IVFLUSH Not Given QSHIFT [facility] Labs CBC & Chem 7: 10/07/20 06:10 10/07/20 06:10 Assessment and Plan (1) Breast cancer: Status: Acute Assessment and Plan: This is a 80 yo F with a history of breast ca, PE on coumadin who is admitted f or elective TKA. Medical services consulted for co-mgmt of her chronic medical issues 1. Acute Anemia significant drop in her h/h from pre-operative labs Agree with prbc transfusion will check occult blood, stop toradol 2. History of pulmonary embolism on coumadin plan is for lovenox bridge, but given acute anemia -- need to ensure no acute blood loss on going restart lovenox/coumadin once h/h stable 3. ? history of GERD PPI BID for now 4. L TKA mgmt per ortho will d/c toradol in view of significant anemia will follow
--- NOTE | 2020-10-07 12:11 | MHC.CM.PN ---
pt lives c her in their home , she reports being independent in her care. although her can help her c her needs including a ride home at dc. dc plan is for patient to return home c [facility]na for nsg and home pt for which she requested a ref. be made. pt does not want to go to [facility]. dc plan is home c vna. cm to cont. to follow.
[2020-10-07] MEDS: Omeprazole 20 MG CAPSULE.DR PO (16:04)
--- NOTE | 2020-10-07 22:33 | PC.NURSE ---
Addendum entered by Mikki Tyler RN 10/07/20 22:46: Correction around 1600, IV infiltrated. Original Note: Late entry-Around 1630 pt IV noted to be infiltrated, blood transfusion not completed, around 150mL left in bag. Transfusion was discontinued. Joey KIRBY notified, no new orders at that time. New IV was placed and second unit of blood was started around 1830. Blood transfusion completed, Dr. Bahman Richards aware and ordered CBC. Pt had an intermittent episode of confusion around 2119 pt thought she was home. Pt was reassessed around 2129 and was alert and oriented again. Dr. Bahman Richards was informed of this episode as well, no new orders obtained at that time. Pt is currently sleeping with bed alarm activated and call mayes in reach.
[2020-10-07 22:47] LABS: Basophils Absolute Auto 0.1 X10*3/uL (0.0-0.2); Basophils Percent Auto 0.6 % (0-2); Eosinophils Percent Auto 0.3 % (0-4); Hematocrit 25.9 % (37-47); Hemoglobin 8.5 g/dl (12.0-16.0); Imm Gran Abs Auto 0.12 X10*3/uL (0.00-0.03); Imm Gran Pct Auto 1.5 % (0.0-0.4); Lymphocytes Absolute Auto 1.4 X10*3/uL (1.2-4.9); Lymphocytes Percent Auto 17.6 % (20-40); Mean Corpuscular HGB Conc 32.8 g/dl (31.0-35.0); Mean Corpuscular Hemoglobin 34.7 pg (27.0-33.0); Mean Corpuscular Volume 105.7 fL (80-98); Mean Platelet Volume 10.8 fL (9.4-12.3); Monocytes Absolute Auto 1.2 X10*3/uL (0.1-1.2); Monocytes Percent Auto 15.1 % (2-11); NRBC Pct Auto 0.5 /100WBC (0.0-0.2); Neutrophils Absolute Auto 5.1 X10*3/uL (2.0-8.3); Neutrophils Percent Auto 64.9 % (45-73); Red Blood Count 2.45 X10*6/uL (4.20-5.50); Red Cell Distribution Width 17.2 % (11.0-16.0); White Blood Count 7.8 X10*3/uL (4.8-10.8)
[2020-10-07 22:48] LABS: MANUAL DIFF FLAG NO
[2020-10-07 22:58] LABS: Platelet Count 88 X10*3/uL (160-400)
[2020-10-08] VITALS (11 sets, daily range): BP systolic 105–150; BP diastolic 45–69; PULSE 98–120; RESP 17–29; TEMP 36.2–36.9; O2SAT 93–96
[2020-10-08] MEDS: oxyCODONE HCl Immed Release 5 MG TABLET 10 MG PO ×3 (02:05→18:05)
[2020-10-08] MEDS: Acetaminophen 325 MG TABLET 650 MG PO ×3 (08:05→21:10)
[2020-10-08] MEDS: Omeprazole 20 MG CAPSULE.DR PO ×2 (08:06→16:44)
[2020-10-08] MEDS: Magnesium Oxide 400 MG TABLET PO ×2 (08:06→21:11)
[2020-10-08 09:32] LABS: Anion Gap 12 (12-20); Blood Urea Nitrogen 26 mg/dL (9-16); Calcium 7.4 mg/dL (8.4-10.2); Carbon Dioxide 26 mmol/L (22-29); Chloride 99 mmol/L (96-108); Creatinine Clr Calc Pharmacy 24.1; Estimated Glomerular Filt Rate 31; Glucose Random 103 mg/dL (60-115); Potassium 4.3 mmol/l (3.3-5.1); Sodium 133 mmol/L (135-145)
--- NOTE | 2020-10-08 10:13 | PM.PNORT ---
Subjective Subjective Date of Service: 10/08/20 Principal diagnosis: LT TKA Interval history: POD 2 s/p LT TKA No overnight events, continues to have difficulty with voiding requiring straight cath. Recvd 2 units yesterday , h/h pending Physical Exam Vital Signs: Vital Signs: Last Vital Signs Temp 97.4 F 10/08/20 07:28 Pulse 105 H 10/08/20 07:28 Resp 18 10/08/20 07:28 BP 105/57 L 10/08/20 07:28 Pulse Ox 96 10/08/20 07:28 Body Mass Index 23.0 Const: General: cooperative, healthy appearing and no acute distress Resp: Effort & Inspection: normal respiratory effort and able to speak in complete sentences Cardio: Rate: regular rate Peripheral pulses: Peripheral pulses 2+ throughout GI: Inspection: Yes normal to inspection Palpation (GI): Soft to palpation Skin: General skin exam: no rashes or lesions noted Extrem: Other: Left knee bandage has some saturation, lower ext swelling present, calf supple non tender Progress Note: A&P Assessment and plan (1) Status post left knee replacement: Status: Acute Assessment and Plan: Continue pain mgmnt hold dvt ppx due to low h/h PT for LT TKA Dispo planning-Pending PTl, pain mgmnt, labs Fall Risk Details Current Medications: Current Medications Generic Name Dose Route Start Last Admin Trade Name Freq PRN Reason Stop Dose Admin Acetaminophen 650 mg 10/06/20 14:33 10/08/20 08:05 Acetaminophen 325 Mg Tablet PO 650 mg Q6H ADAM Administration Magnesium Oxide 400 mg 10/06/20 21:00 10/08/20 08:06 Magnesium Oxide 400 Mg Tablet PO 400 mg BID ADAM Administration Morphine Sulfate 2 mg 10/06/20 14:33 10/06/20 19:28 Morphine Sulfate 2 Mg/Ml Cartridge IVPUSH 2 mg Q2H PRN Administration Pain, Severe (Pain Scale 7-10) Naloxone HCl 0.2 mg 10/06/20 14:33 Naloxone Hcl 0.4 Mg/Ml Vial IVPUSH Q2M PRN Excessive sedation or RR < 8 Omeprazole 20 mg 10/07/20 16:30 10/08/20 08:06 Omeprazole 20 Mg Capsule. PO 20 mg BID@0730,4914 ADAM Administration Ondansetron HCl 4 mg 10/06/20 14:33 10/06/20 23:13 Ondansetron Hcl 4 Mg/2 Ml Vial IVPUSH 4 mg Q8H PRN Administration Nausea and Vomiting Oxycodone HCl 10 mg 10/06/20 18:00 10/08/20 08:06 Oxycodone Hcl Immed Release 5 Mg Tablet PO 10 mg Q6H ADAM Administration Pharmacy Consult 1 each 10/06/20 15:13 Consult Rx Perform Med Rec MISCELLANE ONCE PRN Consult order Sodium Chloride 3 ml 10/06/20 16:00 10/08/20 08:04 0.9 % Sodium Chloride Flush 3 Ml Syringe IVFLUSH Not Given QSHIFT [facility] Time Spent With Patient Time: Total time spent is greater than 50% in coordination of care (as documented) at patient's floor/unit and/or counseling patient: Time with patient: 15 - 24 minutes
[2020-10-08 10:39] LABS: PLT CLUMP 1; Red Blood Count 2.34 X10*6/uL (4.20-5.50)
--- NOTE | 2020-10-08 10:40 | P.PNIM_ITS ---
Subjective Subjective Date of Service: 10/08/20 Interval History: seen and examined this morning reports difficulty voiding reports her weakness/dizziness slightly improved with prbc transfusion ROS General - no fevers or chills Cardiovascular - no chest pain, +dizziness Respiratory - no shortness of breath or cough Abdominal- no abdominal pain, nausea, vomiting, diarrhea Physical Exam Vital Signs: Vital Signs: Last Vital Signs Temp 97.4 F 10/08/20 07:28 Pulse 105 H 10/08/20 07:28 Resp 18 10/08/20 07:28 BP 105/57 L 10/08/20 07:28 Pulse Ox 96 10/08/20 07:28 Body Mass Index 23.0 Const: Other: General - no acute distress, appears comfortable Cardiovascular - regular rate and rhythm, S1-S2 Lungs - normal respiratory effort, clear to auscultation bilaterally, no wheezing Abdomen - soft, nontender, no rebound or guarding Extremities - no edema bilaterally Neuro - awake and alert, no focal deficits Objective Data Current Medications Generic Name Dose Route Start Last Admin Trade Name Kevanq PRN Reason Stop Dose Admin Acetaminophen 650 mg 10/06/20 14:33 10/08/20 08:05 Acetaminophen 325 Mg Tablet PO 650 mg Q6H ADAM Administration Magnesium Oxide 400 mg 10/06/20 21:00 10/08/20 08:06 Magnesium Oxide 400 Mg Tablet PO 400 mg BID ADAM Administration Morphine Sulfate 2 mg 10/06/20 14:33 10/06/20 19:28 Morphine Sulfate 2 Mg/Ml Cartridge IVPUSH 2 mg Q2H PRN Administration Pain, Severe (Pain Scale 7-10) Naloxone HCl 0.2 mg 10/06/20 14:33 Naloxone Hcl 0.4 Mg/Ml Vial IVPUSH Q2M PRN Excessive sedation or RR < 8 Omeprazole 20 mg 10/07/20 16:30 10/08/20 08:06 Omeprazole 20 Mg Capsule.Dr PO 20 mg BID@0630,2380 ADAM Administration Ondansetron HCl 4 mg 10/06/20 14:33 10/06/20 23:13 Ondansetron Hcl 4 Mg/2 Ml Vial IVPUSH 4 mg Q8H PRN Administration Nausea and Vomiting Oxycodone HCl 10 mg 10/06/20 18:00 10/08/20 08:06 Oxycodone Hcl Immed Release 5 Mg Tablet PO 10 mg Q6H ADAM Administration Pharmacy Consult 1 each 10/06/20 15:13 Consult Rx Perform Med Rec MISCELLANE ONCE PRN Consult order Sodium Chloride 3 ml 10/06/20 16:00 10/08/20 08:04 0.9 % Sodium Chloride Flush 3 Ml Syringe IVFLUSH Not Given QSHIFT [facility] Labs CBC & Chem 7: 10/07/20 22:38 10/08/20 08:17 Assessment and Plan (1) Breast cancer: Status: Acute Assessment and Plan: This is a 80 yo F with a history of breast ca, PE on coumadin who is admitted for elective TKA. Medical services consulted for co-mgmt of her chronic medical issues 1. Acute Anemia, thrombocytopenia s/p 2 units prbc, cbc this AM pending pending cbc results, may need further work up for her anemia 2. History of pulmonary embolism on coumadin, was on lovenox prior to surgery hold off on initiation of anticogaultion until cbc results and h/h stable 3. ? history of GERD PPI BID for now 4. L TKA mgmt per ortho will d/c toradol in view of significant anemia 5. Orthostasis due to hypovoluemia anticipate she will need more blood pending cbc will follow along
[2020-10-08 10:41] LABS: Hematocrit 24.1 % (37-47); Mean Corpuscular HGB Conc 33.2 g/dl (31.0-35.0); Mean Corpuscular Hemoglobin 34.2 pg (27.0-33.0); Mean Platelet Volume 11.1 fL (9.4-12.3); NRBC Pct Auto 0.8 /100WBC (0.0-0.2); Red Cell Distribution Width 17.8 % (11.0-16.0); White Blood Count 7.3 X10*3/uL (4.8-10.8)
[2020-10-08 10:54] LABS: Platelet Count 93 X10*3/uL (160-400)
--- NOTE | 2020-10-08 12:26 | MHC.CM.PN ---
PER CONVERSATION WITH PATIENT, SHE IS NOT INTERESTED IN SHORT TERM REHAB REFERRALS, AND WANTS OT RETURN HOME WITH [facility]. CASE MANAGEMENT FOLLOWING FOR DISCHARGE AND ANY CHANGE OF PLANS
[2020-10-08 13:25] LABS: Immature Retic Fraction 27.2 % (3.0-15.9); Reticulocyte Percent 4.3 % (0.5-1.8); Reticulocytes Absolute 0.099 X10*6/uL (0.026-0.095)
[2020-10-08] MEDS: Lactated Ringers 1,000 ML 100 ML IVCONT (13:33)
[2020-10-08 13:45] LABS: Alanine Aminotransferase < 6 U/L (0-31); Alkaline Phosphatase 72 U/L (39-117); Aspartate Amino Transferase 17 U/L (5-31); Bilirubin Direct 0.5 mg/dL (0.0-0.5); Bilirubin Total 0.9 mg/dL (0.0-1.0); Lactate Dehydrogenase 209 U/L (122-220)
--- NOTE | 2020-10-08 16:24 | PC.NURSE ---
THIS AM DURING P.T . PT WAS NOTED TO HAVE A DROP IN BP 82/55 P138. PT BACK TO BED 107/49 P130. CHECKED AGAIN 98/46 126 . PT WAS ASYMPTOMATIC. DR BELLO MADE AWARE. PT REMAINED IN BED IV FLUIDS ORDERED. 1200 OXYCODONE HELD .
[2020-10-08] MEDS: 0.9 % Sodium Chloride Flush 3 ML SYRINGE IVFLUSH (16:38)
[2020-10-08] MEDS: Enoxaparin Sodium 40 MG/0.4 ML SYRINGE SUBCUT (16:43)
--- NOTE | 2020-10-08 20:25 | PC.NURSE ---
P-patient voided 300 ml on a commode I-bladder scanned,PVR 176 ml E-Due to void #2 at 0230,will monitor
[2020-10-09] MEDS: oxyCODONE HCl Immed Release 5 MG TABLET 10 MG PO ×3 (01:48→12:12)
[2020-10-09] MEDS: Lactated Ringers 1,000 ML 100 ML IVCONT ×2 (02:58→12:12)
[2020-10-09 03:35] VITALS: BP 116/73; PULSE 101; RESP 19; TEMP 36.4; O2SAT 95
[2020-10-09] MEDS: Omeprazole 20 MG CAPSULE.DR PO (06:28)
[2020-10-09 07:16] VITALS: BP 134/58; PULSE 113; RESP 17; TEMP 36.4; O2SAT 93
--- NOTE | 2020-10-09 08:58 | P.CNHO_ITS ---
Subjective - Subjective Chief complaint: 1. Anemia 2. Thrombocytopenia. 3. Status post surgery. Patient: known to practice within the last 3 years Consult date: 10/09/20 Requesting Physician: Katie Delgado. Primary Care Provider: Unknown Physician Medical Summary: DIAGNOSIS: 1. ANEMIA. 2. THROMBOCYTOPENIA. HPI - Consult Narrative Narrative: Cande Fox is a pleasant 80 year old lady, who underwent left knee arthroplasty. She became rather hypotensive postop. Was given extra fluids. Her CBC: 10/07: Hemoglobin 7.8. HCT 23.4. Repeat CBC:10/07: HGB 8.5/HCT 25.9. PLT 88. On 10/08: HGB 8. HCT 24.1. PLT 93. She does have a previous history of thrombocytopenia that is longstanding. History of B12 deficiency related anemia. She gets B12 injections. She does feel rather fatigued. She falls asleep easily. Denies any fever nor chills. She still has residual knee pain. No chest pain or trouble breathing. Denies any abdominal pain but she does have a history of heartburn. She follows with Dr. Hogan. Barium swallow in February revealed: Small sliding hiatal hernia with moderate GE reflux. Small right mid esophageal diverticulum. He was not too concerned about it. Her appetite is fair. She has lost weight. Her spirits are down. Rest of the review of systems is unremarkable. Review of Systems - Constitutional Reports system reviewed and no additional complaints, except as documented, Reports body ache(s), Reports fatigue, Reports lack of energy, Reports malaise, Reports weight loss, Denies fever(s) - Eyes Reports system reviewed and no additional complaints, except as documented, Denies blurry vision - ENT Reports system reviewed and no additional complaints, except as documented - Cardiovascular Reports system reviewed and no additional complaints, except as documented, Denies chest pain at rest - Respiratory Reports no additional respiratory complaints, Denies change in phlegm color - Gastrointestinal Reports system reviewed and no additional complaints, except as documented, Denies abdominal pain, Denies change in bowel habits - Genitourinary Reports no additional female genitourinary complaints - Musculoskeletal Reports system reviewed and no additional complaints, except as documented, Reports abnormal walking, Reports joint pain - Integumentary/Breasts Skin/Breast: Reports no additional skin complaints, Denies bleeding lesions - Neurologic Reports system reviewed and no additional complaints, except as documented - Psychiatric Reports system reviewed and no additional complaints, except as documented, Denies anxiety - Endocrine Reports no additional endocrine complaints, Denies cold intolerance - Hematologic/Lymphatic Reports system reviewed and no additional complaints, except as documented, Denies easy bleeding, Denies easy bruising - Allergic/Immunologic Reports system reviewed and no additional complaints, except as documented [facility] Medical History: Medical History (Last Reviewed 10/06/20 @ 15:17 by Katie Delgado NP) B12 deficiency Breast cancer Fatty liver, alcoholic GERD (gastroesophageal reflux disease) History of alcohol use History of pulmonary embolism History of right breast cancer HTN (hypertension) Hx of deep venous thrombosis Hx of hypercalcemia Hx of metabolic acidosis Hx of tuberculosis Hypomagnesemia Osteoarthritis Osteoarthritis of left knee Thrombocytopenia Functional capacity: uses cane/walker Patient : No Family History: Family History (Last Reviewed 10/06/20 @ 15:18 by Katie Delgado NP) Father No problems noted. Mother No problems noted. Surgical History: Surgical History (Last Reviewed 10/06/20 @ 15:18 by Katie Delgado NP) H/O right mastectomy History of appendectomy History of cataract surgery History of cystoscopy History of esophagogastroduodenoscopy (EGD) History of evacuation of hematoma History of knee replacement procedure of right knee History of lumpectomy of right breast History of tonsillectomy Hx of adenoidectomy Hx of colonoscopy S/P SASHA-BSO (total abdominal hysterectomy and bilateral salpingo-oophorectomy) Smoking status: Never smoker Home Medications and Allergies Current Medications: Current Medications Generic Name Dose Route Start Last Admin Trade Name Freq PRN Reason Stop Dose Admin Acetaminophen 650 mg 10/06/20 14:33 10/09/20 02:59 Acetaminophen 325 Mg Tablet PO Not Given Q6H ADAM Enoxaparin Sodium 40 mg 10/08/20 16:00 10/08/20 16:43 Enoxaparin Sodium 40 Mg/0.4 Ml Syringe SUBCUT 40 mg Q24H ADAM Administration Lactated Ringer's 1,000 mls @ 100 mls/hr 10/08/20 13:15 10/09/20 02:58 Lr IVCONT 100 mls/hr .Q10H ADAM Administration Magnesium Oxide 400 mg 10/06/20 21:00 10/08/20 21:11 Magnesium Oxide 400 Mg Tablet PO 400 mg BID ADAM Administration Morphine Sulfate 2 mg 10/06/20 14:33 10/06/20 19:28 Morphine Sulfate 2 Mg/Ml Cartridge IVPUSH 2 mg Q2H PRN Administration Pain, Severe (Pain Scale 7-10) Naloxone HCl 0.2 mg 10/06/20 14:33 Naloxone Hcl 0.4 Mg/Ml Vial IVPUSH Q2M PRN Excessive sedation or RR < 8 Omeprazole 20 mg 10/07/20 16:30 10/09/20 06:28 Omeprazole 20 Mg Capsule. PO 20 mg BID@0630,1630 [facility] Administration Ondansetron HCl 4 mg 10/06/20 14:33 10/06/20 23:13 Ondansetron Hcl 4 Mg/2 Ml Vial IVPUSH 4 mg Q8H PRN Administration Nausea and Vomiting Oxycodone HCl 10 mg 10/06/20 18:00 10/09/20 06:28 Oxycodone Hcl Immed Release 5 Mg Tablet PO 10 mg Q6H [facility] Administration Pharmacy Consult 1 each 10/06/20 15:13 Consult Rx Perform Med Rec MISCELLANE ONCE PRN Consult order Sodium Chloride 3 ml 10/06/20 16:00 10/09/20 00:27 0.9 % Sodium Chloride Flush 3 Ml Syringe IVFLUSH Not Given QSHIFT [facility] Home Medications Medication Instructions Recorded Confirmed Type fesoterodine 4 mg tablet,extended 4 mg PO BEDTIME 09/09/20 10/06/20 History release 24 hr metoprolol tartrate 25 mg tablet 25 mg PO BID 09/09/20 10/03/20 History famotidine 20 mg tablet 40 mg PO BID tab 09/11/20 10/06/20 History Myrbetriq 50 mg PO BEDTIME 10/06/20 10/06/20 History folic acid 1 mg PO DAILY 10/06/20 10/06/20 History gabapentin 300 mg PO DAILY 10/06/20 10/06/20 History magnesium oxide 400 mg PO BID 10/06/20 10/06/20 History warfarin 2 mg PO SUTUTHSA@1800 10/06/20 10/23/20 History warfarin 4 mg PO MOWEFR@1800 10/06/20 10/23/20 History Allergies Allergy/AdvReac Type Severity Reaction Status Date / Time cortisone [Cortisone] Allergy Mild PT STATES Verified 10/16/20 11:53 IT COULD AFFECT HS TB CYSTALS IN,LUNG prochlorperazine Allergy Mild LEG Verified 10/16/20 11:53 [From Compazine] NUMBNESS hydrochlorothiazide Allergy Unknown RASH Verified 10/16/20 11:53 levofloxacin [Levaquin] Allergy Unknown Wakefulness, Verified 10/16/20 11:53 nausea, shaking codeine AdvReac Unknown NAUSEA/VOMI Verified 10/16/20 11:53 TING chocolate Allergy Unknown severe Uncoded 08/18/20 15:35 headaches/vomiting Physical Exam Vital signs: Vital Signs Temp 97.5 F 10/09/20 07:16 Pulse 113 H 10/09/20 07:16 Resp 17 10/09/20 07:16 BP 134/58 L 10/09/20 07:16 Pulse Ox 93 10/09/20 07:16 Intake & Output 10/08/20 10/09/20 10/09/20 18:59 06:59 18:59 Intake Total 1015 / 2050 1035 / 2050 Output Total 310 / 310 Balance 1015 / 1740 725 / 1740 Urine Output (Average ml/kg/hr) 0.14 Intake: Intake, Oral Amount 480 / 700 220 / 700 Intake (Blood Product) Amount 0 / 350 350 / 350 Red Blood Cells (E0382) Unit 0 / 350 350 / 350 [id number] Intake, IV Amount 535 / 1000 465 / 1000 Lactated Ringers 1,000 ml @ 100 535 / 1000 465 / 1000 mls/hr IVCONT .Q10H [facility] Rx#: [id number] Output: Output, Urine Amount 100 / 100 Output, Post Void Residual 210 / 210 Amount Other: Breakfast % Eaten 75% Lunch % Eaten 50% Weight 58.967 kg Hem/Onc Consult Result - Labs CBC & Chem 7: 10/09/20 08:39 10/09/20 08:39 Labs: Short CBC 10/08/20 Range/Units 08:17 WBC 7.3 (4.8-10.8) X10*3/uL Hgb 8.0 L (12.0-16.0) g/dl Hct 24.1 L (37-47) % Plt Count 93 L (160-400) X10*3/uL BMP 10/08/20 08:17 Sodium 133 L Potassium 4.3 Chloride 99 Carbon Dioxide 26 BUN 26 H Creatinine 1.59 H Calcium 7.4 L Liver Function 10/08/20 Range/Units 08:17 Total Bilirubin 0.9 (0.0-1.0) mg/dL Direct Bilirubin 0.5 (0.0-0.5) mg/dL AST 17 (5-31) U/L ALT < 6 (0-31) U/L Alkaline Phosphatase 72 (39-117) U/L Albumin 3.0 L (3.5-5.0) g/dL Assessment and Plan (1) Thrombocytopenia Status: Inactive This is a pleasant 80-year-old lady with previous history of triple negative breast cancer. She underwent a knee replacement back in June 2016 and did well. She now had her knee replacement on the right side. She is currently recuperating. Hospital course: The patient underwent a successful , left total knee arthroplasty, she was transferred to PACU and then to the floor to recover. During her stay she remained afebrile at 97.3. POD 1 her h/h dropped significantly to 7.8/23.4. HR 101 and BP 115/55. She was transfused with 2 units of PRBCs. POD 2 her H/H was slightly improved to 8.0/24.1. HR range 101-120 bpm. She was given another unit of PRBCs and her anticoagulant was held. POD 4 patient's H and H on the upward trend 9.2/28.1. Hemoglobin is on the upswing status post blood transfusion. She has had a chronic Thrombocytopenia, most consistent with ITP. PLAN: Recommendation was to Bridge with Lovenox until INR therapeutic and follow up with Hem/Onc 1-2 weeks post op. While in the hospital she received Physical Therapy services twice a day. Prior to discharge, her dressing was changed, incision clean dry and intact, new Aquacel dressing applied and the plan is to be discharged home with VNA services. She will follow-up in Heme-Onc office in a couple of weeks time. Will monitor her blood count and platelets. 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 She is triple negative so not on any antiestrogen therapy. She has history of osteoporosis. I offered her bisphosphonate. She has poor IV access so I offered subcutaneous denosumab however she declined it. She also has history of peripheral neuropathy. She is on gabapentin. She has GI complaints. She is on famotidine.
[2020-10-09 09:02] LABS: Mean Corpuscular Volume 99.3 fL (80-98); PLT CLUMP 1
[2020-10-09 09:04] LABS: Hematocrit 28.1 % (37-47); Hemoglobin 9.2 g/dl (12.0-16.0); Mean Corpuscular HGB Conc 32.7 g/dl (31.0-35.0); Mean Corpuscular Hemoglobin 32.5 pg (27.0-33.0); Mean Platelet Volume 11.4 fL (9.4-12.3); Red Blood Count 2.83 X10*6/uL (4.20-5.50); Red Cell Distribution Width 19.3 % (11.0-16.0); White Blood Count 7.9 X10*3/uL (4.8-10.8)
[2020-10-09 09:06] LABS: Platelet Count 86 X10*3/uL (160-400)
[2020-10-09 09:11] LABS: INTERNATIONAL NORM RATIO 0.9 (0.9-1.1); Prothrombin Time 10.9 SEC (10.8-13.0)
[2020-10-09] MEDS: Acetaminophen 325 MG TABLET 650 MG PO ×2 (09:20→15:29)
[2020-10-09] MEDS: Magnesium Oxide 400 MG TABLET PO (09:20)
[2020-10-09 09:30] LABS: Anion Gap 11 (12-20); Blood Urea Nitrogen 17 mg/dL (9-16); Calcium 7.8 mg/dL (8.4-10.2); Carbon Dioxide 27 mmol/L (22-29); Chloride 102 mmol/L (96-108); Creatinine Clr Calc Pharmacy 41.2; Estimated Glomerular Filt Rate 58; Glucose Random 101 mg/dL (60-115); Potassium 4.1 mmol/l (3.3-5.1); Sodium 136 mmol/L (135-145)
[2020-10-09 11:16] VITALS: BP 126/60; PULSE 110; RESP 17; TEMP 36.3; O2SAT 96
--- NOTE | 2020-10-09 11:48 | MHC.CM.PN ---
PATIENT IS DISCHARGED TODAY. SHE DOES NOT WANT TO GO TO SHORT TERM REHAB, DISCUSSED YESTERDAY. PATIENT WANTS TO RETURN HOME WITH [facility].
--- NOTE | 2020-10-09 12:44 | P.F2F_ITS ---
Service Date Service Date: 10/09/20 Reasons for Services Reason for care home: postoperative assessment and/or care Reason for physical therapy: home safety and mobility, therapeutic exercises, restore joint function, gait/transfer training and ADL training Reason for occupational therapy: home safety and mobility, therapeutic exercises, restore joint function, gait/transfer training and ADL training Overseeing Care: Art Hendrix Homebound: Leaving the home is medically contraindicated at this time without the asist of a device and/or another person due th the listed conditions above and below. Reason homebound: unsteady gait / fall risk, fall risk related to blood pressure changes, leg weakness, pain with ambulation, poor balance / fall risk and unable to drive Homebound supporting statement: Pt. is considered home bound due to recent surgery. Unable to drive, poor balance, poor gait mechanics. Certification: Based on the above findings, I certify that this patient is confined to the home and needs intermittent care home care, physical therapy and/or speech therapy, or continues to need occupational therapy. The patient is under my care, and I have initiated the establishment of the plan of care. The patient will be followed by a physician who will periodically review the plan of care.
--- NOTE | 2020-10-09 12:49 | P.PNIM_ITS ---
Subjective Subjective Date of Service: 10/09/20 Interval History: seen and examined this AM feeling better reports she was able to work with pt today without dizziness denies any cp or sob. wants to go home and not STR ROS General - no fevers or chills Cardiovascular - no chest pain Respiratory - no shortness of breath or cough Abdominal- no abdominal pain, nausea, vomiting, diarrhea Physical Exam Vital Signs: Vital Signs: Last Vital Signs Temp 97.3 F 10/09/20 11:16 Pulse 110 H 10/09/20 11:16 Resp 17 10/09/20 11:16 BP 126/60 10/09/20 11:16 Pulse Ox 96 10/09/20 11:16 Body Mass Index 23.0 Const: Other: General - no acute distress, appears comfortable Cardiovascular - regular rate and rhythm, S1-S2 Lungs - normal respiratory effort, clear to auscultation bilaterally, no wheezing Abdomen - soft, nontender, no rebound or guarding Extremities - no edema bilaterally Neuro - awake and alert, no focal deficits Objective Data Current Medications Generic Name Dose Route Start Last Admin Trade Name Alannah PRN Reason Stop Dose Admin Acetaminophen 650 mg 10/06/20 14:33 10/09/20 09:20 Acetaminophen 325 Mg Tablet PO 650 mg Q6H ADAM Administration Enoxaparin Sodium 40 mg 10/08/20 16:00 10/08/20 16:43 Enoxaparin Sodium 40 Mg/0.4 Ml Syringe SUBCUT 40 mg Q24H ADAM Administration Lactated Ringer's 1,000 mls @ 100 mls/hr 10/08/20 13:15 10/09/20 12:12 Lr IVCONT 100 mls/hr .Q10H ADAM Administration Magnesium Oxide 400 mg 10/06/20 21:00 10/09/20 09:20 Magnesium Oxide 400 Mg Tablet PO 400 mg BID ADAM Administration Morphine Sulfate 2 mg 10/06/20 14:33 10/06/20 19:28 Morphine Sulfate 2 Mg/Ml Cartridge IVPUSH 2 mg Q2H PRN Administration Pain, Severe (Pain Scale 7-10) Naloxone HCl 0.2 mg 10/06/20 14:33 Naloxone Hcl 0.4 Mg/Ml Vial IVPUSH Q2M PRN Excessive sedation or RR < 8 Omeprazole 20 mg 10/07/20 16:30 10/09/20 06:28 Omeprazole 20 Mg Capsule.Dr PO 20 mg BID@0630,8589 [facility] Administration Ondansetron HCl 4 mg 10/06/20 14:33 10/06/20 23:13 Ondansetron Hcl 4 Mg/2 Ml Vial IVPUSH 4 mg Q8H PRN Administration Nausea and Vomiting Oxycodone HCl 10 mg 10/06/20 18:00 10/09/20 12:12 Oxycodone Hcl Immed Release 5 Mg Tablet PO 10 mg Q6H ADAM Administration Pharmacy Consult 1 each 10/06/20 15:13 Consult Rx Perform Med Rec MISCELLANE ONCE PRN Consult order Sodium Chloride 3 ml 10/06/20 16:00 10/09/20 09:06 0.9 % Sodium Chloride Flush 3 Ml Syringe IVFLUSH Not Given QSHIFT [facility] Labs CBC & Chem 7: 10/09/20 08:39 10/09/20 08:39 Assessment and Plan (1) Breast cancer: Status: Acute Assessment and Plan: This is a 80 yo F with a history of breast ca, PE on coumadin who is admitted for elective TKA. Medical services consulted for co-mgmt of her chronic medical issues 1. Acute Anemia, thrombocytopenia h/h improved post transfusion follow hematology recommendations 2. History of pulmonary embolism follow hematology recommendations with lovenox/coumadin bridging 3. ? history of GERD PPI BID for now 4. L TKA mgmt per ortho 5. Orthostasis clinically resolved with blood / IVF. able to work with PT who recommends STR, which she has refused. 6. PUMA pre-renal resolved with blood / IVF Medically stable, can d/c if cleared by hematology.
[2020-10-09] MEDS: Enoxaparin Sodium 40 MG/0.4 ML SYRINGE SUBCUT (15:28)
--- NOTE | 2020-10-09 17:49 | P.DS_ITS ---
DS: Providers Provider Date of admission: 10/06/20 07:45 Primary care physician: Unknown Physician Consults: 10/06/20 14:33 Consult to Hospitalist Routine Consulting Provider: Hospitalist Reason for consultation: medical issues 10/08/20 11:09 Consult to Hematology / Oncology Routine Consulting Provider: Ford Hernandez Reason for consultation: anemia / thrombocytopenia, acute changes DS: Diagnosis Discharge Diagnosis (1) Status post left knee replacement: Status: Acute Problem details: Ms Fox presented to the office with ongoing left knee pain and was found to have osteoarthritis of the left knee . She failed all conservative treatment and continued to have difficulty with ADLs and ambulation; therefore, she consented to move forward with LT TKa. DS: Medications Discharge Medications Home Medications: Home Medications Medication Instructions Recorded Confirmed fesoterodine 4 mg tablet,extended 4 mg PO BEDTIME 09/09/20 10/06/20 release 24 hr metoprolol tartrate 25 mg tablet 25 mg PO BID 09/09/20 10/03/20 famotidine 20 mg tablet 40 mg PO BID tab 09/11/20 10/06/20 Myrbetriq 50 mg PO BEDTIME 10/06/20 10/06/20 folic acid 1 mg PO DAILY 10/06/20 10/06/20 gabapentin 300 mg PO DAILY 10/06/20 10/06/20 magnesium oxide 400 mg PO BID 10/06/20 10/06/20 warfarin 2 mg PO SUTUTHSA@1800 10/06/20 10/06/20 warfarin 4 mg PO MOWEFR@1800 10/06/20 10/06/20 Previous Rx's Medication Instructions Recorded acetaminophen 650 mg PO Q6H 30 Days #240 tab 10/09/20 enoxaparin 40 mg SUBCUT Q24H 14 Days #5.6 ml 10/09/20 oxycodone 10 mg PO Q6H 7 Days #28 tab 10/09/20 DS: Summary Hospital Course Hospital Course: The patient underwent a successful , left total knee arthroplasty, she was transferred to PACU and then to the floor to recover. During her stay she remained afebrile at 97.3. POD 1 her h/h dropped significantly to 7.8/23.4. HR 101 and BP 115/55. She was transfused with 2 units of PRBCs, POD 2 her H/H was slightly improved to 8.0/24.1. HR range 101-120 bpm. She was given another unit of PRBCs and Hem/Onc was consulted for further input. In the meantime, her anticoagulant was held. POD 4 patient was seen by Heme/Onc. H/H was on the upward trend 9.2/28.1. Assessment: chronic thrombocytopenia, most consistent with ITP. Recommendation was to Bridge with Lovenox until INR therapeutic and follow up with Hem/Onc 1-2 weeks post op. While in the hospital she received Physical Therapy services twice a day. Prior to discharge, her dressing was changed, incision clean dry and intact, new Aquacel dressing applied and the plan was to be discharged home with VNA services,. Time Spent with Patient Time attestation: Total time spent providing and/or coordinating discharge services: Physical Exam Vital Signs: Vital Signs: Last Vital Signs Temp 97.3 F 10/09/20 11:16 Pulse 110 H 10/09/20 11:16 Resp 17 10/09/20 11:16 BP 126/60 10/09/20 11:16 Pulse Ox 96 10/09/20 11:16 Body Mass Index 23.0 Const: General: cooperative, healthy appearing and no acute distress Resp: Effort & Inspection: normal respiratory effort and able to speak in complete sentences Cardio: Rate: regular rate Peripheral pulses: Peripheral pulses 2+ throughout GI: Inspection: Yes normal to inspection Palpation (GI): Soft to palpation Skin: General skin exam: no rashes or lesions noted Extrem: Other: Left knee bettina intact, no erythema or drainage. Hematoma present within the knee joint, ecchymosis present along the lower extremity. Calf supple non tender. DS: Data Data Completed and Pending Completed studies during hospitalization [Text1]: Pending at discharge 10/06/20 10:58 Surgical [PTH] Routine Labs on day of discharge: 09/11/20 14:00 MRSA Nasal Screen Routine 09/11/20 14:20 Type and Screen Routine 09/11/20 14:30 Magnesium Routine 09/22/20 07:20 Gabapentin [Neurontin] 600 mg PO PREOP ONE ceFAZolin Sodium/Dextrose,Iso [Ancef] 2 gm in 50 ml IV PREOP 09/22/20 07:30 Lactated Ringers [Lr] 1,000 ml IVCONT 100 mls/hr 09/22/20 07:33 Partial Thromboplastin Time Stat 09/22/20 Breakfast NPO Diet 10/03/20 14:25 Type and Screen Routine 10/03/20 14:30 SARS-COV-2 PCR Routine 10/06/20 07:42 ceFAZolin Sodium/Dextrose,Iso [Ancef] 2 gm in 50 ml IV PREOP 10/06/20 07:42 Providone-Iodine Solution 5% nasal swab .Both Nares x2 pre-op 10/06/20 07:55 COVID-19 ID NOW (Méndez) Stat 10/06/20 08:30 Lactated Ringers [Lr] 1,000 ml IVCONT 100 mls/hr 10/06/20 08:36 Gabapentin [Neurontin] 300 mg .ROUTE .STK-MED ONE ceFAZolin Sodium/Dextrose,Iso [Ancef] 2 gm in 50 ml .ROUTE As directed 10/06/20 08:52 Midazolam HCl/PF [Versed] 2 mg .ROUTE .STK-MED ONE 10/06/20 08:53 propofoL [Diprivan] 200 mg IVPUSH .STK-MED ONE 10/06/20 08:55 Bupivacaine MPF 0.5 % [Sensorcaine MPF 0.5% 30 ML] 30 ml .ROUTE .STK-MED ONE 10/06/20 09:45 Lidocaine HCl 2 % MPF [Xylocaine 2 % MPF] 5 ml .ROUTE .STK-MED ONE Rocuronium [place] [Zemuron] 100 mg IV .STK-MED ONE fentaNYL citrate/PF [Sublimaze] 50 mcg .ROUTE .STK-MED ONE propofoL [Diprivan] 200 mg IVPUSH .STK-MED ONE 10/06/20 10:17 HYDROmorphone HCl [Dilaudid] 2 mg .ROUTE .STK-MED ONE 10/06/20 10:27 Vital Signs Q1H HYDROmorphone HCl [Dilaudid] 0.25 mg IVPUSH Q5M PRN ondansetron HCL [Zofran] 4 mg IVPUSH ONCE PRN 10/06/20 10:30 Acetaminophen [Ofirmev] 1,000 mg in 100 ml IV As directed 10/06/20 10:58 Surgical [PTH] Routine 10/06/20 11:12 Phenylephrine HCL 1,000 mcg IVPUSH .STK-MED ONE ePHEDrine sulfate 50 mg .ROUTE .STK-MED ONE Transfer Order Routine 10/06/20 11:16 Sugammadex Sodium [Bridion] 200 mg IVPUSH .STK-MED ONE 10/06/20 12:05 oxyCODONE HCl Immed Release [Roxicodone] 5 mg PO ONCE ONE 10/06/20 14:33 Acetaminophen [Tylenol] 650 mg PO Q6H Morphine Sulfate 2 mg IVPUSH Q2H PRN Naloxone HCl [Narcan] 0.2 mg IVPUSH Q2M PRN ondansetron HCL [Zofran] 4 mg IVPUSH Q8H PRN 10/06/20 14:33 Apply ice pack .as needed Incentive Spirometry NOW Reinforce wound dressing NEEDED Straight Urinary Catheterization NEEDED Vital Signs Q4H Occupational Therapy Eval & Treat NEEDED Physical Therapy Eval & Treat NOW 10/06/20 14:54 ceFAZolin Sodium/Dextrose,Iso [Ancef] 2 gm in 50 ml IV POSTOP 10/06/20 15:00 Ketorolac Tromethamine [Toradol] 15 mg IVPUSH Q6H oxyCODONE HCl Immed Release [Roxicodone] 10 mg PO Q6H 10/06/20 15:13 Consult Rx Perform Med Rec 1 each MISCELLANE ONCE PRN 10/06/20 16:00 0.9 % Sodium Chloride Flush [NS Flush] 3 ml IVFLUSH QSHIFT 0.9 % Sodium Chloride [Ns] 1,000 ml IVCONT 999 mls/hr 10/06/20 18:00 Ketorolac Tromethamine [Toradol] 15 mg IVPUSH Q6H oxyCODONE HCl Immed Release [Roxicodone] 10 mg PO Q6H 10/06/20 21:00 Magnesium Oxide [Mag-Ox] 400 mg PO BID 10/07/20 06:10 Basic Metabolic Panel DAILY@0600 Hemoglobin and Hematocrit DAILY@0600 10/07/20 07:00 XR knee LT 2V Routine 10/07/20 08:15 Red Blood Cells Stat Type and Screen Stat 10/07/20 16:30 Omeprazole [PriLOSEC] 20 mg PO BID@0630,1630 10/07/20 21:42 Code Status Routine 10/07/20 22:38 Complete Blood Count Auto Diff Stat 10/07/20 23:15 Straight Urinary Catheterization .Now 10/08/20 08:17 Direct Rosanne (FERNANDA) Routine Basic Metabolic Panel Routine Complete Blood Count no Diff Routine Lactate Dehydrogenase Routine Liver Panel Routine Reticulocyte Count Routine 10/08/20 13:15 Lactated Ringers [Lr] 1,000 ml IVCONT 100 mls/hr 10/08/20 13:17 Add Laboratory Test Routine 10/08/20 15:35 Communication Order NOW 10/08/20 16:00 Enoxaparin Sodium [Lovenox] 40 mg SUBCUT Q24H 10/09/20 08:39 Basic Metabolic Panel Routine Complete Blood Count no Diff Routine Prothrombin Time INR Routine Laboratory Last Values WBC 7.9 X10*3/uL (4.8-10.8) 10/09/20 08:39 RBC 2.83 X10*6/uL (4.20-5.50) L D 10/09/20 08:39 Hgb 9.2 g/dl (12.0-16.0) L 10/09/20 08:39 Hct 28.1 % (37-47) L 10/09/20 08:39 MCV 99.3 fL (80-98) H 10/09/20 08:39 MCH 32.5 pg (27.0-33.0) 10/09/20 08:39 MCHC 32.7 g/dl (31.0-35.0) 10/09/20 08:39 RDW 19.3 % (11.0-16.0) H 10/09/20 08:39 Plt Count 86 X10*3/uL (160-400) L 10/09/20 08:39 MPV 11.4 fL (9.4-12.3) 10/09/20 08:39 Immature Gran % (Auto) 1.5 % (0.0-0.4) H 10/07/20 22:38 Neut % (Auto) 64.9 % (45-73) 10/07/20 22:38 Lymph % (Auto) 17.6 % (20-40) L 10/07/20 22:38 Stoddard % (Auto) 15.1 % (2-11) H 10/07/20 22:38 Eos % (Auto) 0.3 % (0-4) 10/07/20 22:38 Baso % (Auto) 0.6 % (0-2) 10/07/20 22:38 Lymph # (Auto) 1.4 X10*3/uL (1.2-4.9) 10/07/20 22:38 Stoddard # (Auto) 1.2 X10*3/uL (0.1-1.2) 10/07/20 22:38 Eos # (Auto) 0.0 X10*3/uL (0.0-0.4) 10/07/20 22:38 Baso # (Auto) 0.1 X10*3/uL (0.0-0.2) 10/07/20 22:38 Abs Immat Gran (auto) 0.12 X10*3/uL (0.00-0.03) H 10/07/20 22:38 Absolute Neuts (auto) 5.1 X10*3/uL (2.0-8.3) 10/07/20 22:38 Absolute Nucleated RBC 0.000 X10*3/uL (0.0-0.012) 10/09/20 08:39 Nucleated RBC % (auto) 0.0 /100WBC (0.0-0.2) 10/09/20 08:39 Absolute Retic 0.099 X10*6/uL (0.026-0.095) H 10/08/20 08:17 Percent Retic 4.3 % (0.5-1.8) H 10/08/20 08:17 Immature Retic Fraction 27.2 % (3.0-15.9) H 10/08/20 08:17 Retic Hgb Equivalent 37.0 pg (30.0-35.0) H 10/08/20 08:17 PT 10.9 SEC (10.8-13.0) 10/09/20 08:39 INR 0.9 (0.9-1.1) 10/09/20 08:39 APTT 58.6 SEC (24.1-38.0) H 09/22/20 07:33 Sodium 136 mmol/L (135-145) 10/09/20 08:39 Potassium 4.1 mmol/l (3.3-5.1) 10/09/20 08:39 Chloride 102 mmol/L (96-108) 10/09/20 08:39 Carbon Dioxide 27 mmol/L (22-29) 10/09/20 08:39 Anion Gap 11 (12-20) L 10/09/20 08:39 BUN 17 mg/dL (9-16) H 10/09/20 08:39 Creatinine 0.93 mg/dL (0.5-1.4) 10/09/20 08:39 Estim Creat Clear Calc 41.2 10/09/20 08:39 Estimated GFR 58 10/09/20 08:39 Random Glucose 101 mg/dL (60-115) 10/09/20 08:39 Calcium 7.8 mg/dL (8.4-10.2) L 10/09/20 08:39 Magnesium 1.7 mg/dL (1.6-2.6) 09/11/20 14:30 Total Bilirubin 0.9 mg/dL (0.0-1.0) 10/08/20 08:17 Direct Bilirubin 0.5 mg/dL (0.0-0.5) 10/08/20 08:17 AST 17 U/L (5-31) 10/08/20 08:17 ALT < 6 U/L (0-31) 10/08/20 08:17 Alkaline Phosphatase 72 U/L (39-117) 10/08/20 08:17 Lactate Dehydrogenase 209 U/L (122-220) 10/08/20 08:17 Total Protein 5.0 g/dL (6.5-8.0) L 10/08/20 08:17 Albumin 3.0 g/dL (3.5-5.0) L 10/08/20 08:17 Nasal Screen MRSA (PCR) NEGATIVE (Negative) 09/11/20 14:00 Nasal S. aureus Screen NEGATIVE (Negative) 09/11/20 14:00 Nasal MRSA/S.aureus Interp SEE NOTE 09/11/20 14:00 SARS-CoV-2 (PCR) NOT DETECTED (NOT DETECTED) 10/03/20 14:30 COVID-19 (FRITZ) Negative (Negative) 10/06/20 07:55 COVID-19 Clin Com See Note 10/06/20 07:55 Blood Type O Positive 10/07/20 08:15 Antibody Screen NEGATIVE 10/07/20 08:15 Direct Antiglob Test TNP 10/08/20 08:17 FERNANDA, Polyspecific NEGATIVE 10/08/20 08:17 Crossmatch See Detail 10/07/20 08:15 Discharge Plan Discharge Patient Disposition: Home Health Service Referrals: [facility] [Outside] Ford Hernandez MD [Physician] - (follow up with Dr Hernandez in 1-2 weeks) Joey Adams PA-C [Physician Community Services Officer] - Discharge Medications: New enoxaparin 40 mg/0.4 mL Syringe 40 mg subcut Q24H 14 Days Qty: 5.6 RF: 0 acetaminophen 325 mg Tablet 650 mg PO Q6H 30 Days Qty: 240 RF: 0 oxycodone 10 mg tablet 10 mg PO Q6H 7 Days Qty: 28 RF: 0 Continued warfarin 2 mg Tablet 2 mg PO SUTUTHSA@1800 RF: 0 warfarin 2 mg Tablet 4 mg PO MOWEFR@1800 RF: 0 folic acid 1 mg Tablet 1 mg PO DAILY RF: 0 magnesium oxide 400 mg magnesium Tablet 400 mg PO BID RF: 0 gabapentin 300 mg capsule 300 mg PO DAILY RF: 0 Myrbetriq 50 mg tablet extended release 24 hr 50 mg PO BEDTIME RF: 0 metoprolol tartrate 25 mg tablet 25 mg PO BID RF: 0 fesoterodine 4 mg tablet extended release 24 hr 4 mg PO BEDTIME RF: 0 famotidine 20 mg tablet 40 mg PO BID RF: 0 Discontinued enoxaparin [Lovenox] 60 mg/0.6 mL syringe 60 mg subcut Q12H 10 Days Qty: 20 RF: 0 Discharge Orders: Discharge Order (Routine); Ordered 10/09/20 Ordered By: Joey Adams Diet: regular diet Activity on Discharge: Use cane or walker Discharge Date/Time: 10/09/20 16:05 Activity Restrictions/Additional Instructions: * Physical Therapy for ROM 0-120, quad strength, gait training . Use walker for ambulation * Limit stair climbing, No shower, No tub bath, No driving * Lovenox 40mg subq until INR level therapeutic-goal 2-3 * Resume Coumadin * Keep Aquacel dressing clean, dry and intact. * Follow up with orthopedics in 2 weeks Visit Report Forms: Patient Portal Discharge page Care Plan Goals: Restore function of left knee Health Concerns: Monitor h/h Plan of Treatment: Physical Therapy Pain management DVT prophylaxis
== END 2020-10-09 16:05 | disposition home health service (06) | DRG 470 ==
LOC: HO.SSSA 07:46 → HO.S3 11:24
PROVIDERS: Family Medicine; Internal Medicine; Nurse Practitioner; Nurse Practitioner Acute Care; Physician Assistant; Admitting Provider Orthopaedic Surgery; Visit Provider Orthopaedic Surgery
PROC: 0SRD0JA Replacement of Left Knee Joint with Synthetic Substitute, Uncemented, Open Approach (ICD-10-PCS; CPT 27447; principal; 2020-10-06 09:40)
DX: M17.12 Unilateral primary osteoarthritis, left knee (principal); D69.3 Immune thrombocytopenic purpura; D62 Acute posthemorrhagic anemia; K21.9 Gastro-esophageal reflux disease without esophagitis; Z96.651 Presence of right artificial knee joint; Z20.828 Contact with and (suspected) exposure to other viral communicable diseases; I95.81 Postprocedural hypotension; Z86.718 Personal history of other venous thrombosis and embolism; Z79.01 Long term (current) use of anticoagulants; Z79.899 Other long term (current) drug therapy
CPT/HCPCS: 36415; 73560; 80048; 80076; 83615; 83735; 85014; 85018; 85025; 85027; 85045; 85610; 85730; 86850; 86880; 86900; 86901; 86920; 86923; 87635; 87640; 87641; 88305; 88311; 97110; 97116; 97162; 97166; 97530; 97535; C1776; J0131; J0690; J1170; J1650; J1885; J2250; J2270; J2370; J2405; J3010; P9016; U0003

== ENCOUNTER → 2020-10-16 11:47 | Outpatient (BNVA) | payer MEDICARE, SELFPAY | PROVIDERS: PCP Hospitalist; Visit Provider Internal Medicine | DX: I26.99 Other pulmonary embolism without acute cor pulmonale (principal); Z51.81 Encounter for therapeutic drug level monitoring; Z79.01 Long term (current) use of anticoagulants | CPT/HCPCS: Q3014 ==

== ENCOUNTER → 2020-10-22 09:51 | Outpatient (BNVA) | payer MEDICARE, SELFPAY | PROVIDERS: PCP Hospitalist; Visit Provider Orthopaedic Surgery | DX: Z47.1 Aftercare following joint replacement surgery (principal); Z96.652 Presence of left artificial knee joint | CPT/HCPCS: 99212 ==

== ENCOUNTER → 2020-10-23 11:18 | Outpatient (BNVA) | payer MEDICARE, SELFPAY | PROVIDERS: PCP Internal Medicine; Visit Provider Internal Medicine | DX: I26.99 Other pulmonary embolism without acute cor pulmonale (principal); Z51.81 Encounter for therapeutic drug level monitoring; Z79.01 Long term (current) use of anticoagulants | CPT/HCPCS: Q3014 ==

== ENCOUNTER → 2020-10-27 11:58 | Outpatient (BNVA) | payer MEDICARE, SELFPAY | PROVIDERS: PCP Internal Medicine; Visit Provider Internal Medicine | DX: Z13.89 Encounter for screening for other disorder (principal) | CPT/HCPCS: Q3014 ==

== ENCOUNTER → 2020-10-30 14:11 | Outpatient (BNVA) | payer MEDICARE, SELFPAY | PROVIDERS: PCP Internal Medicine; Visit Provider Internal Medicine | DX: I26.99 Other pulmonary embolism without acute cor pulmonale (principal); Z79.01 Long term (current) use of anticoagulants; Z51.81 Encounter for therapeutic drug level monitoring | CPT/HCPCS: Q3014 ==

== ENCOUNTER 2020-10-31 11:38 | Outpatient (REF) | payer MEDICARE, SELFPAY ==
[2020-10-31 13:53] LABS: MANUAL DIFF FLAG NO
[2020-10-31 13:58] LABS: Basophils Percent Auto 0.4 % (0-2); Eosinophils Percent Auto 0.5 % (0-4); Hematocrit 34.6 % (37-47); Imm Gran Abs Auto 0.05 X10*3/uL (0.00-0.03); Imm Gran Pct Auto 0.6 % (0.0-0.4); Immature Retic Fraction 14.7 % (3.0-15.9); Lymphocytes Absolute Auto 1.1 X10*3/uL (1.2-4.9); Lymphocytes Percent Auto 13.8 % (20-40); Mean Corpuscular HGB Conc 31.8 g/dl (31.0-35.0); Mean Corpuscular Hemoglobin 32.8 pg (27.0-33.0); Mean Corpuscular Volume 103.3 fL (80-98); Mean Platelet Volume 11.3 fL (9.4-12.3); Monocytes Percent Auto 12.7 % (2-11); Neutrophils Absolute Auto 5.8 X10*3/uL (2.0-8.3); Platelet Count 236 X10*3/uL (160-400); Red Blood Count 3.35 X10*6/uL (4.20-5.50); Red Cell Distribution Width 16.5 % (11.0-16.0); Retic HGB Equivalent 33.2 pg (30.0-35.0); Reticulocyte Percent 3.2 % (0.5-1.8); Reticulocytes Absolute 0.108 X10*6/uL (0.026-0.095); White Blood Count 8.1 X10*3/uL (4.8-10.8)
[2020-10-31 14:22] LABS: Alanine Aminotransferase 10 U/L (0-31); Albumin Level 3.8 g/dL (3.5-5.0); Alkaline Phosphatase 138 U/L (39-117); Anion Gap 16 (12-20); Aspartate Amino Transferase 20 U/L (5-31); Bilirubin Total 0.7 mg/dL (0.0-1.0); Blood Urea Nitrogen 12 mg/dL (9-16); Calcium 8.6 mg/dL (8.4-10.2); Carbon Dioxide 26 mmol/L (22-29); Chloride 94 mmol/L (96-108); Estimated Glomerular Filt Rate 43; Glucose Random 91 mg/dL (60-115); Iron 48 mcg/dL (30-160); Percent Iron Saturation 18 % (15-50); Potassium 3.4 mmol/l (3.3-5.1); Sodium 133 mmol/L (135-145); Total Iron Binding Capacity 267 mcg/dL (228-428); Total Protein 6.6 g/dL (6.5-8.0); Unsaturated Iron Binding 219 ug/dL
[2020-10-31 14:28] LABS: Glucose Urine UA NEG (NEG); Leukocyte Esterase Urine 3+ (NEG); Nitrite Urine NEG (NEG); PH 5.5 (5.0-8.0); Urine Blood TRACE (NEG); Urine Ketones NEG (NEG); Urine Protein NEG (NEG-TRACE)
[2020-10-31 14:29] LABS: Appearance Urine CLOUDY; Color Urine YELLOW
[2020-10-31 14:40] LABS: Squamous Epithelial Cell Urine 2+ /LPF; WBC Urine TNTC /HPF (0-4)
[2020-10-31 14:41] LABS: Bacteria Urine 4+ /LPF
[2020-10-31 14:43] LABS: Ferritin 402 ng/mL (10-250); Thyroid Stimulating Hormone 1.73 uIU/mL (0.32-4.0)
[2020-10-31 15:10] LABS: Folate > 20.0 ng/mL (> or = 4.0); Vitamin B12 768 pg/mL (200-900)
== END 2020-10-31 11:39 | disposition home or self-care (01) ==
LOC: HO.HMGCLDS 11:38
PROVIDERS: PCP Internal Medicine; Visit Provider Internal Medicine
DX: D64.9 Anemia, unspecified (principal); R41.89 Other symptoms and signs involving cognitive functions and awareness; N39.41 Urge incontinence
CPT/HCPCS: 36415; 80053; 81001; 82607; 82728; 82746; 83540; 84443; 85025; 85045

== ENCOUNTER → 2020-11-04 11:12 | Outpatient (BNVA) | payer MEDICARE, SELFPAY | PROVIDERS: PCP Internal Medicine; Visit Provider Internal Medicine | DX: I26.99 Other pulmonary embolism without acute cor pulmonale (principal); Z79.01 Long term (current) use of anticoagulants; Z51.81 Encounter for therapeutic drug level monitoring | CPT/HCPCS: Q3014 ==

== ENCOUNTER 2020-11-06 12:03 | Inpatient (IN) | payer MEDICARE, SELFPAY ==
[2020-11-06 12:16] VITALS: BP 120/63; PULSE 77; RESP 17; TEMP 36.7; O2SAT 100; BMI 23.3
--- NOTE | 2020-11-06 12:25 | CT_ITS ---
EXAMINATION: CT HEAD WITHOUT CONTRAST CLINICAL INFORMATION: Altered mental status. On Coumadin COMPARISON: CT brain 12/05/2019. MRI brain 03/25/2013 TECHNIQUE: Contiguous axial imaging was performed from the skull base to vertex without intravenous administration of contrast. This CT examination was performed using dose optimization techniques as appropriate, variously including the following: *Automated exposure control *Adjustment of mA and/or kV according to patient size (this includes techniques or standardized protocols for targeted exams where dose is matched to indication/reason for exam; i.e. extremities or head) *Use of iterative reconstruction technique DLP: 581 mGy-cm FINDINGS: There is no evidence of acute intracranial hemorrhage or territorial infarction. There is a 5 mm hypodensity in the thalamocaudate groove likely prominent Virchow Ivan space. It is unchanged to previous CT and MRI brain. No abnormal mass effect or midline shift is seen. Carias to white matter differentiation is well preserved. No extra-axial fluid collections are identified. The ventricles are normal in size. There is no abnormal attenuation within the brain parenchyma. The osseous structures and soft tissues are normal. The mastoid air cells and visualized portions of the paranasal sinuses are well aerated. There is mild deformity right lateral maxillary sinus wall, likely old injury CT/CT head/brain wo con IMPRESSION: No acute intracranial process seen. No major change from previous CT 12/05/2019
--- NOTE | 2020-11-06 12:25 | ECG_ITS ---
Test Reason : AMS Blood Pressure : / mmHG Vent. Rate : 077 BPM Atrial Rate : 077 BPM P-R Int : 162 ms QRS Dur : 092 ms QT Int : 434 ms P-R-T Axes : 046 022 034 degrees QTc Int : 491 ms Normal sinus rhythm Possible Left atrial enlargement Prolonged QT Abnormal ECG When compared with ECG of 09-SEP-2020 11:46, No significant change was found Referred By: Sheldon Rossi Electronically Signed By:BERT VALDOVINOS MD
--- NOTE | 2020-11-06 12:26 | XR_ITS ---
EXAMINATION: XR CHEST CLINICAL INFORMATION: Change in mental status. Rule out pneumonia. COMPARISON: December 05, 2019 and studies dating back to March 03, 2018 TECHNIQUE: 2 views of the chest were obtained. FINDINGS: There is no evidence of acute parenchymal disease, pneumothorax, or pleural effusion. Heart upper limits of normal in size. No evidence of pulmonary edema. Calcified granulomas are present bilaterally. XR/XR chest 2V IMPRESSION: No acute disease. Old granulomatous disease.
--- NOTE | 2020-11-06 12:28 | ED.GENADULT ---
HPI - General Adult General Chief complaint: Altered Mental Status Stated complaint: increased ams, hx dementia Time Seen by Provider: 11/06/20 12:17 Source: patient Mode of arrival: EMS Limitations: no limitations History of Present Illness HPI narrative: 80-year-old female who was sent to emergency department by her family for evaluation of change in mental status since having her knee surgery 1 month prior. It was reported that the patient seems to be wandering more aimlessly and yesterday, when her went into the shower the patient wandered out of the house into the neighborhood which is unusual for her. There are no other reported symptoms. The patient does have dementia and she has no complaints. The patient is oriented to person, place, time and date. She pleasant and cooperative and answers questions appropriately. I did speak to the patient's , Praful. He states that the patient's dementia has gotten worse since the patient's surgery. He states that the patient does not recognize him, she does not know where her bedroom is, she wanders around in the house and is very confused . He also states that approximately 6 days prior the patient was started on Bactrim for a urinary tract infection. Over the past 2-3 days the patient has been weak and more confused. The patient has had 2 episodes falling. Three days prior she fell out of bed and today, prior to coming to the emergency department she fell. Related Data Home Medications Medication Instructions Recorded Confirmed fesoterodine 4 mg tablet,extended 4 mg PO BEDTIME 09/09/20 10/30/20 release 24 hr metoprolol tartrate 25 mg tablet 25 mg PO BID 09/09/20 10/30/20 famotidine 20 mg tablet 40 mg PO BID tab 09/11/20 10/30/20 Myrbetriq 50 mg PO BEDTIME 10/06/20 10/30/20 folic acid 1 mg PO DAILY 10/06/20 10/30/20 gabapentin 300 mg PO DAILY 10/06/20 10/30/20 magnesium oxide 400 mg PO BID 10/06/20 10/30/20 warfarin 2 mg PO SUTUTHSA@1800 10/06/20 11/04/20 warfarin 4 mg PO MOWEFR@1800 10/06/20 11/04/20 Previous Rx's Medication Instructions Recorded acetaminophen 650 mg PO Q6H 30 Days #240 tab 10/09/20 oxycodone 10 mg PO Q6H 7 Days #28 tab 10/09/20 sulfamethoxazole 800 1 tab PO BID #14 tab 10/31/20 mg-trimethoprim 160 mg tablet Allergies Allergy/AdvReac Type Severity Reaction Status Date / Time cortisone [Cortisone] Allergy Mild PT STATES Verified 10/16/20 11:53 IT COULD AFFECT HS TB CYSTALS IN,LUNG prochlorperazine Allergy Mild LEG Verified 10/16/20 11:53 [From Compazine] NUMBNESS hydrochlorothiazide Allergy Unknown RASH Verified 10/16/20 11:53 levofloxacin [Levaquin] Allergy Unknown Wakefulness, Verified 10/16/20 11:53 nausea, shaking codeine AdvReac Unknown NAUSEA/VOMI Verified 10/16/20 11:53 TING chocolate Allergy Unknown severe Uncoded 08/18/20 15:35 headaches/vomiting PMFSH Past Medical History Medical History (Updated 11/06/20 @ 15:18 by Sheldon Rossi MD) B12 deficiency Breast cancer Fatty liver, alcoholic GERD (gastroesophageal reflux disease) History of alcohol use History of pulmonary embolism History of right breast cancer HTN (hypertension) Hx of deep venous thrombosis Hx of hypercalcemia Hx of metabolic acidosis Hx of tuberculosis Hypomagnesemia Impaired fasting glucose Irritable bowel syndrome Osteoarthritis of left knee Osteoporosis Peripheral neuropathy Pernicious anemia Thrombocytopenia Surgical History (Updated 11/06/20 @ 12:21 by Jung Weber) H/O right mastectomy History of appendectomy History of arthroplasty of left knee History of cataract surgery History of cystoscopy History of esophagogastroduodenoscopy (EGD) History of evacuation of hematoma History of knee replacement procedure of right knee History of left knee surgery History of lumpectomy of right breast History of tonsillectomy Hx of adenoidectomy Hx of colonoscopy S/P SASHA-BSO (total abdominal hysterectomy and bilateral salpingo-oophorectomy) Family History Family History Father No problems noted. Mother No problems noted. Social History Social History Alcohol intake: current Alcohol intake frequency: 0-2 drinks per day Alcohol type: wine Smoking Status: Never smoker Smoked in Last 30 Days: No Use of substances other than those prescribed or required for medical reasons: No Any prior treatment program specific to substance use: No Advance Directives: No Advance Directives Information Provided: No Advance Directives Date on File: 09/11/20 service: No Current occupational status: retired Physical Exam Vital Signs: Vital Signs: Last Vital Signs Temp 98.0 F 11/06/20 12:16 Pulse 83 11/06/20 14:38 Resp 20 11/06/20 14:38 BP 127/52 L 11/06/20 14:38 Pulse Ox 100 11/06/20 14:38 Body Mass Index 23.3 Course Course Course Narrative: 80-year-old female with history of hypertension, dementia, pulmonary embolism on Coumadin who presents emergency department for worsening dementia x1 month and weakness with 2 falls in the last 3 days. Physical examination was unremarkable. Laboratory evaluation did reveal a supratherapeutic INR of 4.7. The patient also had a positive urinalysis for leukocyte esterase, microscopic revealed 0-2 red blood cells, too numerous to count white blood cells and 2+ bacteria. At this time, I believe the patient has resistant urinary tract infection and this might explain her increased confusion and her weakness with falls over the last several days. The patient was ordered to get ceftriaxone 1 g IV. I will checked a lactic acid on this patient but I do not think that she meets sepsis protocol. I did discuss my findings with the patient's . He is concerned that he will not be able to take care of the patient at home given her worsening dementia and he states the days along with no help. I did discuss the patient's presentation with the hospitalist, nurse practitioner Katie Delgado and the patient will be admitted for further treatment. Medical Decision Making Lab Data Result diagrams: 11/06/20 13:37 11/06/20 13:37 Labs: Lab Results 11/06/20 11/06/20 11/06/20 Range/Units 12:40 13:37 13:37 WBC 4.8 (4.8-10.8) X10*3/uL RBC 3.27 L (4.20-5.50) X10*6/uL Hgb 10.9 L (12.0-16.0) g/dl Hct 33.0 L (37-47) % MCV 100.9 H (80-98) fL MCH 33.3 H (27.0-33.0) pg MCHC 33.0 (31.0-35.0) g/dl RDW 15.9 (11.0-16.0) % Plt Count 152 L D (160-400) X10*3/uL MPV 11.0 (9.4-12.3) fL Immature Gran % (Auto) 0.8 H (0.0-0.4) % Neut % (Auto) 61.9 (45-73) % Lymph % (Auto) 21.8 (20-40) % [place] % (Auto) 14.1 H (2-11) % Eos % (Auto) 0.6 (0-4) % Baso % (Auto) 0.8 (0-2) % Lymph # (Auto) 1.0 L (1.2-4.9) X10*3/uL [place] # (Auto) 0.7 (0.1-1.2) X10*3/uL Eos # (Auto) 0.0 (0.0-0.4) X10*3/uL Baso # (Auto) 0.0 (0.0-0.2) X10*3/uL Abs Immat Gran (auto) 0.04 H (0.00-0.03) X10*3/uL Absolute Neuts (auto) 2.9 (2.0-8.3) X10*3/uL Absolute Nucleated RBC 0.000 (0.0-0.012) X10*3/uL Nucleated RBC % (auto) 0.0 (0.0-0.2) /100WBC PT 56.8 H D (10.8-13.0) SEC INR 4.7 H (0.9-1.1) Sodium (135-145) mmol/L Potassium (3.3-5.1) mmol/l Chloride (96-108) mmol/L Carbon Dioxide (22-29) mmol/L Anion Gap (12-20) BUN (9-16) mg/dL Creatinine (0.5-1.4) mg/dL Estim Creat Clear Calc Estimated GFR Random Glucose (60-115) mg/dL Calcium (8.4-10.2) mg/dL Total Bilirubin (0.0-1.0) mg/dL AST (5-31) U/L ALT (0-31) U/L Alkaline Phosphatase (39-117) U/L Troponin I High Sens (<3.5-17.0) ng/L Total Protein (6.5-8.0) g/dL Albumin (3.5-5.0) g/dL Lipase (8-78) U/L TSH (0.32-4.0) mIU/mL Urine Color STRAW Urine Appearance CLOUDY Urine pH 7.0 (5.0-8.0) Ur Specific [place] 1.015 (1.005-1.025) Urine Protein NEG (NEG-TRACE) MG/DL Urine Glucose (UA) NEG (NEG) MG/DL Urine Ketones NEG (NEG) MG/DL Urine Blood TRACE (NEG) Urine Nitrite NEG (NEG) Ur Leukocyte Esterase 2+ H (NEG) Urine RBC 0-2 (0) /HPF Urine WBC TNTC H (0-4) /HPF Ur Squamous Epith Cells TRACE /LPF Urine Bacteria 2+ /LPF 11/06/20 11/06/20 11/06/20 Range/Units 13:37 13:37 13:37 WBC (4.8-10.8) X10*3/uL RBC (4.20-5.50) X10*6/uL Hgb (12.0-16.0) g/dl Hct (37-47) % MCV (80-98) fL MCH (27.0-33.0) pg MCHC (31.0-35.0) g/dl RDW (11.0-16.0) % Plt Count (160-400) X10*3/uL MPV (9.4-12.3) fL Immature Gran % (Auto) (0.0-0.4) % Neut % (Auto) (45-73) % Lymph % (Auto) (20-40) % [place] % (Auto) (2-11) % Eos % (Auto) (0-4) % Baso % (Auto) (0-2) % Lymph # (Auto) (1.2-4.9) X10*3/uL [place] # (Auto) (0.1-1.2) X10*3/uL Eos # (Auto) (0.0-0.4) X10*3/uL Baso # (Auto) (0.0-0.2) X10*3/uL Abs Immat Gran (auto) (0.00-0.03) X10*3/uL Absolute Neuts (auto) (2.0-8.3) X10*3/uL Absolute Nucleated RBC (0.0-0.012) X10*3/uL Nucleated RBC % (auto) (0.0-0.2) /100WBC PT (10.8-13.0) SEC INR (0.9-1.1) Sodium 132 L (135-145) mmol/L Potassium 3.8 (3.3-5.1) mmol/l Chloride 97 (96-108) mmol/L Carbon Dioxide 24 (22-29) mmol/L Anion Gap 15 (12-20) BUN 19 H D (9-16) mg/dL Creatinine 1.89 H (0.5-1.4) mg/dL Estim Creat Clear Calc 20.2 Estimated GFR 26 Random Glucose 94 (60-115) mg/dL Calcium 8.4 (8.4-10.2) mg/dL Total Bilirubin 0.5 (0.0-1.0) mg/dL AST 21 (5-31) U/L ALT 11 (0-31) U/L Alkaline Phosphatase 105 D (39-117) U/L Troponin I High Sens 4.1 (<3.5-17.0) ng/L Total Protein 6.2 L (6.5-8.0) g/dL Albumin 3.6 (3.5-5.0) g/dL Lipase 23 (8-78) U/L TSH 3.01 (0.32-4.0) mIU/mL Urine Color Urine Appearance Urine pH (5.0-8.0) Ur Specific [place] (1.005-1.025) Urine Protein (NEG-TRACE) MG/DL Urine Glucose (UA) (NEG) MG/DL Urine Ketones (NEG) MG/DL Urine Blood (NEG) Urine Nitrite (NEG) Ur Leukocyte Esterase (NEG) Urine RBC (0) /HPF Urine WBC (0-4) /HPF Ur Squamous Epith Cells /LPF Urine Bacteria /LPF Discharge Plan Discharge Clinical Impression: Encephalopathy acute, Urinary tract infection, Weakness, Fall, Supratherapeutic INR Prescriptions: No Action sulfamethoxazole-trimethoprim [Bactrim DS] 800-160 mg tablet 1 tab PO BID Qty: 14 RF: 0 warfarin 2 mg Tablet 2 mg PO SUTUTHSA@1800 RF: 0 warfarin 2 mg Tablet 4 mg PO MOWEFR@1800 RF: 0 Hold Instructions: using 2 mg tab folic acid 1 mg Tablet 1 mg PO DAILY RF: 0 magnesium oxide 400 mg magnesium Tablet 400 mg PO BID RF: 0 gabapentin 300 mg capsule 300 mg PO DAILY RF: 0 Myrbetriq 50 mg tablet extended release 24 hr 50 mg PO BEDTIME RF: 0 acetaminophen 325 mg Tablet 650 mg PO Q6H 30 Days Qty: 240 RF: 0 oxycodone 10 mg tablet 10 mg PO Q6H 7 Days Qty: 28 RF: 0 metoprolol tartrate 25 mg tablet 25 mg PO BID RF: 0 fesoterodine 4 mg tablet extended release 24 hr 4 mg PO BEDTIME RF: 0 famotidine 20 mg tablet 40 mg PO BID RF: 0
[2020-11-06 13:01] LABS: Glucose Urine UA NEG (NEG); Leukocyte Esterase Urine 2+ (NEG); Nitrite Urine NEG (NEG); Specific Gravity - Urine 1.015 (1.005-1.025); Urine Blood TRACE (NEG); Urine Ketones NEG (NEG); Urine Protein NEG (NEG-TRACE)
[2020-11-06 13:05] LABS: Appearance Urine CLOUDY; Color Urine STRAW
[2020-11-06 13:13] LABS: Bacteria Urine 2+ /LPF; RBC Urine 0-2 /HPF (0); Squamous Epithelial Cell Urine TRACE /LPF; WBC Urine TNTC /HPF (0-4)
[2020-11-06 13:42] LABS: MANUAL DIFF FLAG NO
[2020-11-06 13:44] LABS: Basophils Percent Auto 0.8 % (0-2); Eosinophils Percent Auto 0.6 % (0-4); Hemoglobin 10.9 g/dl (12.0-16.0); Imm Gran Abs Auto 0.04 X10*3/uL (0.00-0.03); Imm Gran Pct Auto 0.8 % (0.0-0.4); Lymphocytes Percent Auto 21.8 % (20-40); Mean Corpuscular Hemoglobin 33.3 pg (27.0-33.0); Mean Corpuscular Volume 100.9 fL (80-98); Monocytes Absolute Auto 0.7 X10*3/uL (0.1-1.2); Monocytes Percent Auto 14.1 % (2-11); Neutrophils Absolute Auto 2.9 X10*3/uL (2.0-8.3); Neutrophils Percent Auto 61.9 % (45-73); Platelet Count 152 X10*3/uL (160-400); Red Blood Count 3.27 X10*6/uL (4.20-5.50); Red Cell Distribution Width 15.9 % (11.0-16.0); White Blood Count 4.8 X10*3/uL (4.8-10.8)
[2020-11-06 13:54] LABS: INTERNATIONAL NORM RATIO 4.7 (0.9-1.1); Prothrombin Time 56.8 SEC (10.8-13.0)
[2020-11-06 14:35] LABS: Alanine Aminotransferase 11 U/L (0-31); Albumin Level 3.6 g/dL (3.5-5.0); Alkaline Phosphatase 105 U/L (39-117); Anion Gap 15 (12-20); Aspartate Amino Transferase 21 U/L (5-31); Bilirubin Total 0.5 mg/dL (0.0-1.0); Blood Urea Nitrogen 19 mg/dL (9-16); Calcium 8.4 mg/dL (8.4-10.2); Carbon Dioxide 24 mmol/L (22-29); Chloride 97 mmol/L (96-108); Creatinine Clr Calc Pharmacy 20.2; Estimated Glomerular Filt Rate 26; Glucose Random 94 mg/dL (60-115); Lipase 23 U/L (8-78); Potassium 3.8 mmol/l (3.3-5.1); Sodium 132 mmol/L (135-145); Total Protein 6.2 g/dL (6.5-8.0)
[2020-11-06 14:38] VITALS: BP 127/52; PULSE 83; RESP 20; O2SAT 100
[2020-11-06 14:38] LABS: Troponin-I High Sensitivity 4.1 ng/L (<3.5-17.0)
[2020-11-06 14:55] LABS: TSH reflex Free T4 3.01 mIU/mL (0.32-4.0)
--- NOTE | 2020-11-06 15:41 | PM.IMHP ---
History of Present Illness Date of Service: 11/06/20 <Katie Delgado NP - Last Filed: 11/06/20 17:10> Chief Complaint: FALL, CONFUSION <Katie Delgado NP - Last Filed: 11/06/20 17:10> 80 year old women presenting to the ED with increased confusion. Apparently she has had a few falls recently and she is more confused. She was diagnosed with a UTI and was started on Bactrim on 11/01/20. She had left knee arthroplasty on 10/06/20. She denied chest pain, abdominal pain, urinary discomfort, fever, chills, nausea or vomiting. She was alert and oriented x 3, but then she was talking about a person behind her when there was no one there. She had no fever or leukocytosis, but her urinalysis was still positive. She was given Rocephin in the ED and she will be admitted for further management of acute encephalopathy secondary to UTI. <Katie Delgado NP - Last Filed: 11/06/20 17:10> Review of Systems Review of Systems: Denies any recent fever chills or decrease in appetite respiratory denies any shortness of breath coverage production cardiovascular is adjustment of any PND or edema gastrointestinal denies any dysphagia abdominal pain nausea vomiting or diarrhea genitourinary denies any dysuria frequency or hematuria musculoskeletal denies any joint pain or swelling neuropsych denies any weakness or seizures all other systems reviewed are negative <Katie Delgado NP - Last Filed: 11/06/20 17:10> [facility] Medical History: Medical History B12 deficiency Breast cancer Fatty liver, alcoholic GERD (gastroesophageal reflux disease) History of alcohol use History of pulmonary embolism History of right breast cancer HTN (hypertension) Hx of deep venous thrombosis Hx of hypercalcemia Hx of metabolic acidosis Hx of tuberculosis Hypomagnesemia Impaired fasting glucose Irritable bowel syndrome Osteoarthritis of left knee Osteoporosis Peripheral neuropathy Pernicious anemia Thrombocytopenia <Katie Delgado NP - Last Filed: 11/06/20 17:10> Family History: Family History Father No problems noted. Mother No problems noted. <Katie Delgado NP - Last Filed: 11/06/20 17:10> Surgical History: Surgical History (Updated 11/19/20 @ 09:43 by Art Hendrix MD) H/O right mastectomy History of appendectomy History of arthroplasty of left knee History of cataract surgery History of cystoscopy History of esophagogastroduodenoscopy (EGD) History of evacuation of hematoma History of knee replacement procedure of right knee History of left knee surgery History of lumpectomy of right breast History of tonsillectomy Hx of adenoidectomy Hx of colonoscopy S/P SASHA-BSO (total abdominal hysterectomy and bilateral salpingo-oophorectomy) <Katie Delgado NP - Last Filed: 11/06/20 17:10> Social History: Social History Household Members: Spouse Housing: House Alcohol intake: current Alcohol intake frequency: 0-2 drinks per day Alcohol type: wine Smoking Status: Never smoker Advance Directives Date on File: 09/11/20 service: No Current occupational status: retired <Katie Delgado NP - Last Filed: 11/06/20 17:10> Meds Allergies/Adverse reactions: Allergies Allergy/AdvReac Type Severity Reaction Status Date / Time cortisone [Cortisone] Allergy Mild PT STATES Verified 10/16/20 11:53 IT COULD AFFECT HS TB CYSTALS IN,LUNG prochlorperazine Allergy Mild LEG Verified 10/16/20 11:53 [From Compazine] NUMBNESS hydrochlorothiazide Allergy Unknown RASH Verified 10/16/20 11:53 levofloxacin [Levaquin] Allergy Unknown Wakefulness, Verified 10/16/20 11:53 nausea, shaking codeine AdvReac Unknown NAUSEA/VOMI Verified 10/16/20 11:53 TING chocolate Allergy Unknown severe Uncoded 08/18/20 15:35 headaches/vomiting <Katie Delgado NP - Last Filed: 11/06/20 17:10> Home medications: Home Medications Medication Instructions Recorded Confirmed Type fesoterodine 4 mg tablet,extended 4 mg PO BEDTIME 09/09/20 11/06/20 History release 24 hr metoprolol tartrate 25 mg tablet 25 mg PO BID 09/09/20 11/06/20 History famotidine 20 mg tablet 40 mg PO BID tab 09/11/20 11/06/20 History Myrbetriq 50 mg PO BEDTIME 10/06/20 11/06/20 History folic acid 1 mg PO DAILY 10/06/20 11/06/20 History gabapentin 300 mg PO DAILY 10/06/20 11/06/20 History magnesium oxide 400 mg PO BID 10/06/20 11/06/20 History warfarin 2 mg PO SUTUTHSA@1800 10/06/20 11/06/20 History warfarin 4 mg PO MOWEFR@1800 10/06/20 11/06/20 History <Katie Delgado NP - Last Filed: 11/06/20 17:10> Physical Exam Vital Signs and Narrative: Vital Signs: Last Vital Signs Temp 98.0 F 11/06/20 12:16 Pulse 83 11/06/20 14:38 Resp 20 11/06/20 14:38 BP 127/52 L 11/06/20 14:38 Pulse Ox 100 11/06/20 14:38 Body Mass Index 23.3 <Katie Delgado NP - Last Filed: 11/06/20 17:10> Appearing in no acute distress head is normocephalic atraumatic eyes pupils are PERRLA sclera is anicteric mouth throat mucous membranes are intact and moist neck is supple no lymphadenopathy, no JVD noted lung sounds are clear to auscultation heart regular rate rhythm, clear S1, S2 positive bowel sounds, abdomen is soft, nontender neuro patient is alert x3, no focal deficits <Katei Delgado NP - Last Filed: 11/06/20 17:10> Results Labs CBC and Chem 7: : 11/11/20 05:41 11/11/20 05:41 <Katie Delgado NP - Last Filed: 11/06/20 17:10> Labs: Laboratory Results - last 24 hr 11/06/20 11/06/20 11/06/20 12:40 13:37 13:37 MCV 100.9 H MCH 33.3 H MCHC 33.0 RDW 15.9 Plt Count 152 L D MPV 11.0 Immature Gran % (Auto) 0.8 H Neut % (Auto) 61.9 Lymph % (Auto) 21.8 [place] % (Auto) 14.1 H Eos % (Auto) 0.6 Baso % (Auto) 0.8 Lymph # (Auto) 1.0 L [place] # (Auto) 0.7 Eos # (Auto) 0.0 Baso # (Auto) 0.0 Abs Immat Gran (auto) 0.04 H Absolute Neuts (auto) 2.9 Absolute Nucleated RBC 0.000 Nucleated RBC % (auto) 0.0 PT 56.8 H D INR 4.7 H Anion Gap Estim Creat Clear Calc Estimated GFR Random Glucose Calcium Total Bilirubin AST ALT Alkaline Phosphatase Troponin I High Sens Total Protein Albumin Lipase TSH Urine Color STRAW Urine Appearance CLOUDY Urine pH 7.0 Ur Specific [place] 1.015 Urine Protein NEG Urine Glucose (UA) NEG Urine Ketones NEG Urine Blood TRACE Urine Nitrite NEG Ur Leukocyte Esterase 2+ H Urine RBC 0-2 Urine WBC TNTC H Ur Squamous Epith Cells TRACE Urine Bacteria 2+ 11/06/20 11/06/20 11/06/20 13:37 13:37 13:37 MCV MCH MCHC RDW Plt Count MPV Immature Gran % (Auto) Neut % (Auto) Lymph % (Auto) [place] % (Auto) Eos % (Auto) Baso % (Auto) Lymph # (Auto) [place] # (Auto) Eos # (Auto) Baso # (Auto) Abs Immat Gran (auto) Absolute Neuts (auto) Absolute Nucleated RBC Nucleated RBC % (auto) PT INR Anion Gap 15 Estim Creat Clear Calc 20.2 Estimated GFR 26 Random Glucose 94 Calcium 8.4 Total Bilirubin 0.5 AST 21 ALT 11 Alkaline Phosphatase 105 D Troponin I High Sens 4.1 Total Protein 6.2 L Albumin 3.6 Lipase 23 TSH 3.01 Urine Color Urine Appearance Urine pH Ur Specific [place] Urine Protein Urine Glucose (UA) Urine Ketones Urine Blood Urine Nitrite Ur Leukocyte Esterase Urine RBC Urine WBC Ur Squamous Epith Cells Urine Bacteria <Katie Delgado NP - Last Filed: 11/06/20 17:10> Imaging Radiologist's Impressions: Impressions Head CT 11/06/20 12:25 IMPRESSION: No acute intracranial process seen. No major change from previous CT 12/05/2019 Chest X-Ray 11/06/20 12:26 IMPRESSION: No acute disease. Old granulomatous disease. <Katie Delgado NP - Last Filed: 11/06/20 17:10> Assessment and Plan (1) Encephalopathy acute: Status: Acute <Katie Delgado NP - Last Filed: 11/06/20 17:10> (2) Urinary tract infection: Qualifiers: Hematuria presence: without hematuria Urinary tract infection type: site unspecified Qualified Code(s): N39.0 - Urinary tract infection, site not specified <Katie Delgado NP - Last Filed: 11/06/20 17:10> Problem details: She has resistant UTI She has ability to take oral Organism is sensitive to macrodantin <Katie Delgado NP - Last Filed: 11/06/20 17:10> Status: Acute <Katie Delgado NP - Last Filed: 11/06/20 17:10> 80 year old women admitted with acute encephalopathy secondary to UTI UTI. Recent treatment with Bactrim, failed outpatient treatment. Continue Rocephin, follow urine culture Acute encephalopathy with chronic dementia. Likely related to infection. Follwo neuro status PUMA. Likely from recent Bactrim use. Hold nephrotoxins and follow BMP. Supratheraputic INR. Hold warfarin today, check PT/INR daily. Fall. PT consult for possible STR placement. Hx PE. Continue anticoagulation. DVT prophylaxis with warfarin. Discussed with Dr. Olmstead Full code <Katie Delgado NP - Last Filed: 11/06/20 17:10>
[2020-11-06 15:52] LABS: Magnesium 2.1 mg/dL (1.6-2.6)
[2020-11-06 16:12] LABS: COVID-19 Test Negative (Negative); IDNOW Serial# 9DD0AD1C
[2020-11-06] MEDS: cefTRIAXone sodium 1 GM in 0.9 % Sodium Chloride 50 ML IV (17:14)
[2020-11-06 17:58] VITALS: BP 127/52; PULSE 83; RESP 14; O2SAT 100
--- NOTE | 2020-11-06 18:24 | PM.EVENT ---
Event Note Date of Service: 11/06/20 Event Note: 80-year-old female with a diagnosis of dementia who presents to the hospital brought in by her for worsening confusion. Reportedly being treated for a urinary tract infection with Bactrim. UA showing some pyuria and bacteria. Mild Bhavin I., suspected from Bactrim. IV ceftriaxone and IV fluids, monitor renal function Remainder per H&P Patient seen and examined. Case discussed with Katie Delgado NP. Agree with her history and physical.
[2020-11-06 20:13] VITALS: BP 140/77; PULSE 83; RESP 18; TEMP 36.6; O2SAT 99
[2020-11-06] MEDS: oxyCODONE HCl Immed Release 5 MG TABLET 10 MG PO (21:35)
[2020-11-06] MEDS: Mirabegron 50 MG TAB.ER.24H PO (21:35)
[2020-11-06] MEDS: Magnesium Oxide 400 MG TABLET PO (21:35)
[2020-11-06] MEDS: Famotidine 20 MG TABLET 40 MG PO (21:35)
[2020-11-06] MEDS: Lactated Ringers 1,000 ML 100 ML IVCONT (21:36)
[2020-11-06 21:44] VITALS: BP 140/77; PULSE 83
[2020-11-06] MEDS: Metoprolol Tartrate 25 MG TABLET PO (21:44)
[2020-11-07] VITALS: BP 115/65; PULSE 76; RESP 18; TEMP 36.6; O2SAT 97
[2020-11-07] MEDS: Haloperidol Lactate 5 MG/ML VIAL 2.5 MG IM (02:02)
[2020-11-07] MEDS: Lactated Ringers 1,000 ML 100 ML IVCONT (06:26)
[2020-11-07] MEDS: oxyCODONE HCl Immed Release 5 MG TABLET 10 MG PO ×4 (06:29→23:17)
[2020-11-07] MEDS: QUEtiapine Fumarate 25 MG TABLET PO ×2 (06:49→19:51)
[2020-11-07 06:56] VITALS: BP 114/63; PULSE 77; RESP 18; TEMP 36.2; O2SAT 99
[2020-11-07 08:47] LABS: MANUAL DIFF FLAG NO
--- NOTE | 2020-11-07 08:53 | P.CDIC_ITS ---
CDI Concurrent Query Service Date: 11/07/20 Documentation Clarification: Please clarify if you are treating a proba ble/suspected/likely or confirmed: Specifics: Acute Encephalopathy Toxic/metabolic Encephalopathy Please specify if known Toxic/Metabolic Encephalopathy Provider Response: Other Other Diagnosis: Toxic/Metabolic Encephalopathy PLEASE DO NOT DELETE/MODIFY EXISTING CONTENT Additional information is needed in order to code to the highest accuracy and appropriate Severity of Illness (SOI). Please clarify the information noted below in your progress notes and discharge summary. Risk Factors/Clinical Indicators/Treatments Acute encephalopathy secondary to UTI, likely related to infection change in mental status, wanders, worsening confusion, dementia. CDS: Ina Nuñez CCS, CDIS Contact Number: [phone] Please Review the information above and exercise your independent professional judgment in responding to the query. If you concur, pleas document in the PROGRESS NOTES and DISCHARGE SUMMARY. If you do not agree with the query, please document in the query above. THIS QUERY IS PART OF THE PERMANENT MEDICAL RECORD
[2020-11-07 09:01] LABS: Basophils Absolute Auto 0.1 X10*3/uL (0.0-0.2); Basophils Percent Auto 1.1 % (0-2); Eosinophils Percent Auto 0.7 % (0-4); Hematocrit 31.7 % (37-47); Hemoglobin 10.4 g/dl (12.0-16.0); Imm Gran Abs Auto 0.03 X10*3/uL (0.00-0.03); Imm Gran Pct Auto 0.7 % (0.0-0.4); Lymphocytes Absolute Auto 0.8 X10*3/uL (1.2-4.9); Mean Corpuscular HGB Conc 32.8 g/dl (31.0-35.0); Mean Corpuscular Hemoglobin 33.1 pg (27.0-33.0); Mean Platelet Volume 11.5 fL (9.4-12.3); Monocytes Absolute Auto 0.6 X10*3/uL (0.1-1.2); Monocytes Percent Auto 13.3 % (2-11); Neutrophils Absolute Auto 2.8 X10*3/uL (2.0-8.3); Neutrophils Percent Auto 65.2 % (45-73); Platelet Count 147 X10*3/uL (160-400); Red Blood Count 3.14 X10*6/uL (4.20-5.50); Red Cell Distribution Width 16.1 % (11.0-16.0); White Blood Count 4.4 X10*3/uL (4.8-10.8)
--- NOTE | 2020-11-07 09:07 | HO.PM.IMPN ---
Subjective Subjective Date of Service: 11/07/20 Interval History: seen and examined this AM sleepy this AM per RN report, was confused over night ROS unreliable Physical Exam Vital Signs: Vital Signs: Last Vital Signs Temp 97.1 F 11/07/20 06:56 Pulse 77 11/07/20 06:56 Resp 18 11/07/20 06:56 BP 114/63 11/07/20 06:56 Pulse Ox 99 11/07/20 06:56 Body Mass Index 23.3 Const: Other: General - no acute distress, appears comfortable Cardiovascular - regular rate and rhythm, S1-S2 Lungs - normal respiratory effort, clear to auscultation bilaterally, no wheezing Abdomen - soft, nontender, no rebound or guarding Extremities - no edema bilaterally Neuro - drowsy but easily arousable, non focal exam Objective Data Current Medications Generic Name Dose Route Start Last Admin Trade Name Freq PRN Reason Stop Dose Admin Acetaminophen 650 mg 11/06/20 18:23 Acetaminophen 325 Mg Tablet PO Q6H PRN Pain, Mild (Pain Scale 1-3) Famotidine 40 mg 11/06/20 21:00 11/06/20 21:35 Famotidine 20 Mg Tablet PO 40 mg BID ADAM Administration Folic Acid 1 mg 11/07/20 09:00 Folic Acid 1 Mg Tablet PO DAILY ADAM Gabapentin 300 mg 11/07/20 09:00 Gabapentin 300 Mg Capsule PO DAILY ADAM Lactated Ringer's 1,000 mls @ 100 mls/hr 11/06/20 18:30 11/07/20 06:26 Lr IVCONT 11/07/20 14:29 100 mls/hr .Q10H ADAM Administration Ceftriaxone Sodium 1 gm/ 50 mls @ 100 mls/hr 11/07/20 17:00 Sodium Chloride IV Q24H ADAM Magnesium Oxide 400 mg 11/06/20 21:00 11/06/20 21:35 Magnesium Oxide 400 Mg Tablet PO 400 mg BID ADAM Administration Metoprolol Tartrate 25 mg 11/06/20 21:00 11/06/20 21:44 Metoprolol Tartrate 25 Mg Tablet PO 25 mg BID ADAM Administration Protocol Mirabegron 50 mg 11/06/20 21:00 11/06/20 21:35 Mirabegron 50 Mg Tab.Er.24h PO 50 mg BEDTIME ADAM Administration Non-Formulary Medication 4 mg 11/06/20 21:00 Fesoterodine PO BEDTIME [facility] Ondansetron HCl 4 mg 11/06/20 18:23 Ondansetron Hcl 4 Mg/2 Ml Vial IVPUSH Q8H PRN Nausea and Vomiting Oxycodone HCl 10 mg 11/06/20 18:23 11/07/20 06:29 Oxycodone Hcl Immed Release 5 Mg Tablet PO 10 mg Q6H [facility] Administration Pharmacy Consult 1 each 11/06/20 15:36 Consult Rx Perform Med Rec MISCELLANE ONCE PRN Consult order Sodium Chloride 3 ml 11/07/20 00:00 11/06/20 22:11 0.9 % Sodium Chloride Flush 3 Ml Syringe IVFLUSH Not Given QSHIFT [facility] Labs CBC & Chem 7: 11/06/20 13:37 11/06/20 13:37 Assessment and Plan (1) Encephalopathy acute: Status: Acute (2) Urinary tract infection: Status: Acute Assessment and Plan: 80 yo F with a PMH of PE on coumadin, TKR last month, thrombocytopenia, Dementia (per ), who was reportedly being treated with Bactrim for an UTI. She was brought in by her for worsening confusion. 1. Acute toxic/metabolic encephalopathy multifactoral including possibly untreated/resistant UTI, PUMA and baseline dementia 2. Acute UTI rocephin f/u cultures 3. PUMA presumably from recent bactrim use IVF and f/u labs this AM 4. Dementia with behavioral disturbances continue with non-pharmacological treatment as much as possible maybe be acutely worsened due to acute illness 5. Supratherapeurtic INR no evidence of bleeding INR pending this AM 6. History of PE hold coumadin and resume once INR therapeutic Full Code DVT pptx, coumadin
[2020-11-07 09:17] LABS: Anion Gap 18 (12-20); Blood Urea Nitrogen 16 mg/dL (9-16); Calcium 7.9 mg/dL (8.4-10.2); Carbon Dioxide 19 mmol/L (22-29); Chloride 102 mmol/L (96-108); Creatinine Clr Calc Pharmacy 24.4; Estimated Glomerular Filt Rate 32; Glucose Random 95 mg/dL (60-115); Potassium 4.1 mmol/l (3.3-5.1); Sodium 135 mmol/L (135-145)
[2020-11-07] MEDS: Gabapentin 300 MG CAPSULE PO (09:36)
[2020-11-07] MEDS: Folic Acid 1 MG TABLET PO (09:36)
[2020-11-07] MEDS: Famotidine 20 MG TABLET 40 MG PO ×2 (09:36→19:52)
[2020-11-07] MEDS: Magnesium Oxide 400 MG TABLET PO ×2 (09:37→19:52)
[2020-11-07] MEDS: Metoprolol Tartrate 25 MG TABLET PO ×2 (09:37→19:50)
[2020-11-07 09:43] VITALS: BP 114/63; PULSE 77; O2SAT 99
[2020-11-07 10:43] LABS: Prothrombin Time 64.4 SEC (10.8-13.0)
[2020-11-07 10:45] LABS: INTERNATIONAL NORM RATIO 5.3 (0.9-1.1)
[2020-11-07 10:51] VITALS: RESP 18; TEMP 36.6
--- NOTE | 2020-11-07 11:28 | MHC.CM.PN ---
IMM 11/07/20, DISCHARGE PLAN TO SHORT TERM REHAB W/BLS TRANSPORT, CM MET WITH PT WHO IS IS ALERT HOWEVER ONLY ORIENTED TO NAME, AND ADDRESS, PT DID GIVE CM OK TO CONTACT . REPORTS PT RECEIVES [facility] BIWEEKLY FOR PT/INR, PT DOES HAVE ASSISTANCE WITH ADL'S HOWEVER DOES NOT HAVE A CHICKEN AND FISH CLEANER, PT HUSBANDS ASSISTS PT WITH ADL'S, PT'S ALSO REPORTS PT HAS HAD HOME PHYSICAL THERAPY 2-3 TIMES A WEEK. DOES VERIFY PCP DR. WALTON AND [facility]. PT'S DOES HAVE A HEALTH CARE PROXY AND IT WAS COMPLETED AT [facility], CM TO SEARCH RECORDS AND UPLOAD IF NECESSARY. PER NO PREFERENCE FOR STR PLACEMENT AND CM TO PLACE REFERRALS FOR LOCAL FACILITIES.
--- NOTE | 2020-11-07 14:43 | PC.NURSE ---
1400 remains very confused, Unable to reorient. Slept most of day. Refused meals. Not hungry Getting IVF.
[2020-11-07 16:00] VITALS: BP 157/80; PULSE 98; RESP 18; TEMP 36.6; O2SAT 98
[2020-11-07] MEDS: 0.9 % Sodium Chloride Flush 3 ML SYRINGE IVFLUSH ×2 (18:20→23:17)
[2020-11-07] MEDS: cefTRIAXone sodium 1 GM in 0.9 % Sodium Chloride 50 ML IV (18:24)
[2020-11-07 19:50] VITALS: BP 150/71; PULSE 78
[2020-11-07] MEDS: Mirabegron 50 MG TAB.ER.24H PO (19:51)
[2020-11-08] MEDS: oxyCODONE HCl Immed Release 5 MG TABLET 10 MG PO ×2 (05:46→13:29)
[2020-11-08 08:00] VITALS: BP 160/82; PULSE 86; RESP 20; TEMP 36.8; O2SAT 97
[2020-11-08 08:09] LABS: Anion Gap 16 (12-20); Blood Urea Nitrogen 11 mg/dL (9-16); Calcium 8.2 mg/dL (8.4-10.2); Carbon Dioxide 21 mmol/L (22-29); Chloride 102 mmol/L (96-108); Creatinine Clr Calc Pharmacy 28.4; Estimated Glomerular Filt Rate 38; Glucose Random 91 mg/dL (60-115); Potassium 4.6 mmol/l (3.3-5.1); Sodium 134 mmol/L (135-145)
[2020-11-08 08:18] LABS: INTERNATIONAL NORM RATIO 4.2 (0.9-1.1); Prothrombin Time 50.1 SEC (10.8-13.0)
--- NOTE | 2020-11-08 08:32 | P.PNIM_ITS ---
Subjective Subjective Date of Service: 11/08/20 Interval History: seen and examined this AM per RN report, no issues over night ROS unreliable Physical Exam Vital Signs: Vital Signs: Last Vital Signs Temp 97.8 F 11/07/20 16:00 Pulse 78 11/07/20 19:50 Resp 18 11/07/20 16:00 BP 150/71 H 11/07/20 19:50 Pulse Ox 98 11/07/20 16:00 Body Mass Index 23.3 Const: Other: General - no acute distress, appears comfortable Cardiovascular - regular rate and rhythm, S1-S2 Lungs - normal respiratory effort, clear to auscultation bilaterally, no wheezing Abdomen - soft, nontender, no rebound or guarding Extremities - no edema bilaterally Neuro - drowsy but easily arousable, non focal exam Objective Data Current Medications Generic Name Dose Route Start Last Admin Trade Name Freq PRN Reason Stop Dose Admin Acetaminophen 650 mg 11/06/20 18:23 Acetaminophen 325 Mg Tablet PO Q6H PRN Pain, Mild (Pain Scale 1-3) Famotidine 40 mg 11/06/20 21:00 11/07/20 19:52 Famotidine 20 Mg Tablet PO 40 mg BID ADAM Administration Folic Acid 1 mg 11/07/20 09:00 11/07/20 09:36 Folic Acid 1 Mg Tablet PO 1 mg DAILY ADAM Administration Gabapentin 300 mg 11/07/20 09:00 11/07/20 09:36 Gabapentin 300 Mg Capsule PO 300 mg DAILY ADAM Administration Ceftriaxone Sodium 1 gm/ 50 mls @ 100 mls/hr 11/07/20 17:00 11/07/20 19:56 Sodium Chloride IV Infused Q24H ADAM Infusion Magnesium Oxide 400 mg 11/06/20 21:00 11/07/20 19:52 Magnesium Oxide 400 Mg Tablet PO 400 mg BID ADAM Administration Metoprolol Tartrate 25 mg 11/06/20 21:00 11/07/20 19:50 Metoprolol Tartrate 25 Mg Tablet PO 25 mg BID ADAM Administration Protocol Mirabegron 50 mg 11/06/20 21:00 11/07/20 19:51 Mirabegron 50 Mg Tab.Er.24h PO 50 mg BEDTIME ADAM Administration Non-Formulary Medication 4 mg 11/06/20 21:00 Fesoterodine PO BEDTIME ADAM Ondansetron HCl 4 mg 11/06/20 18:23 Ondansetron Hcl 4 Mg/2 Ml Vial IVPUSH Q8H PRN Nausea and Vomiting Oxycodone HCl 10 mg 11/06/20 18:23 11/08/20 05:46 Oxycodone Hcl Immed Release 5 Mg Tablet PO 10 mg Q6H ADAM Administration Pharmacy Consult 1 each 11/06/20 15:36 Consult Rx Perform Med Rec MISCELLANE ONCE PRN Consult order Quetiapine Fumarate 25 mg 11/07/20 21:00 11/07/20 19:51 Quetiapine Fumarate 25 Mg Tablet PO 25 mg BEDTIME ADAM Administration Sodium Chloride 3 ml 11/07/20 00:00 11/07/20 23:17 0.9 % Sodium Chloride Flush 3 Ml Syringe IVFLUSH 3 ml QSHIFT [facility] Administration Labs CBC & Chem 7: 11/07/20 07:39 11/08/20 07:34 Microbiology Microbiology Results: Microbiology 11/06/20 Unknown Urine clean catch - Clean Catch Midstream Urine Culture - Preliminary Escherichia coli 11/06/20 16:06 Blood - Venous Blood Culture - Preliminary No growth after 24 hours. 11/06/20 16:06 Blood - Venous Blood Culture - Preliminary No growth after 24 hours. Assessment and Plan (1) Encephalopathy acute: Status: Acute (2) Urinary tract infection: Status: Acute Assessment and Plan: 80 yo F with a PMH of PE on coumadin, TKR last month, thrombocytopenia, Dementia (per ), who was reportedly being treated with Bactrim for an UTI. She was brought in by her for worsening confusion. 1. Acute toxic/metabolic encephalopathy multifactoral including possibly untreated/resistant UTI, PUMA and baseline dementia 2. Acute E. COli UTI rocephin f/u cultures 3. PUMA presumably from recent bactrim use IVF and f/u labs this AM 4. Dementia with behavioral disturbances continue with non-pharmacological treatment as much as possible maybe be acutely worsened due to acute illness 5. Supratherapeurtic INR downtrending now no evidence of bleeding 6. History of PE hold coumadin and resume once INR therapeutic 7. Generalized weakness multifactorial PT eval Full Code DVT pptx, coumadin dispo: TBD
[2020-11-08] MEDS: Folic Acid 1 MG TABLET PO (10:04)
[2020-11-08] MEDS: Metoprolol Tartrate 25 MG TABLET PO ×2 (10:04→20:37)
[2020-11-08] MEDS: Magnesium Oxide 400 MG TABLET PO ×2 (10:04→20:37)
[2020-11-08] MEDS: Gabapentin 300 MG CAPSULE PO (10:05)
[2020-11-08] MEDS: 0.9 % Sodium Chloride Flush 3 ML SYRINGE IVFLUSH ×2 (10:05→17:02)
[2020-11-08] MEDS: Famotidine 20 MG TABLET 40 MG PO ×2 (10:05→20:38)
[2020-11-08 12:22] VITALS: BP 119/65; PULSE 74; RESP 18; TEMP 36.8; O2SAT 97
[2020-11-08 16:00] VITALS: BP 131/71; PULSE 77; RESP 18; TEMP 36.4; O2SAT 96
[2020-11-08] MEDS: cefTRIAXone sodium 1 GM in 0.9 % Sodium Chloride 50 ML IV (16:55)
--- NOTE | 2020-11-08 18:00 | PC.NURSE ---
Drsg changed to lower back ,intrathecal site pump,small amt of yellowish drainage present on old drsg,no fresh drainage noted
[2020-11-08 18:02] VITALS: BP 138/74; PULSE 86; RESP 20
[2020-11-08 20:37] VITALS: BP 138/74; PULSE 86
[2020-11-08] MEDS: Mirabegron 50 MG TAB.ER.24H PO (20:37)
[2020-11-09] VITALS: PULSE 89; RESP 18; TEMP 36.3; O2SAT 100
[2020-11-09] MEDS: 0.9 % Sodium Chloride Flush 3 ML SYRINGE IVFLUSH ×3 (00:41→15:47)
[2020-11-09 04:21] VITALS: BP 167/84; PULSE 85; RESP 18; TEMP 35.9; O2SAT 99
--- NOTE | 2020-11-09 07:19 | PC.NURSE ---
patient slept in naps thru out this 11-7 shift and easily redirected BTB after BR, however, after am labdraw pt remained awake and and become increasingly uncooperative. wanted to go home, saying mean comments, unwilling to get back in bed, declined a drink or a snack, and stated to have no pain. offered br, recliner etc...., but just kept stating was leaving and actually was quite out of line. REGASIFICATION PLANT OPERATOR sat with patient from [phone], nsg electronics processing supervisor alerted for question a possible sitter as patient is unsteady on her feet. report given to day rn and message received that a sitter was coming to unit.
[2020-11-09 08:00] VITALS: BP 170/70; PULSE 87; RESP 18; TEMP 36.9; O2SAT 99
[2020-11-09 08:03] LABS: INTERNATIONAL NORM RATIO 2.9 (0.9-1.1); Prothrombin Time 34.5 SEC (10.8-13.0)
--- NOTE | 2020-11-09 08:53 | P.PNIM_ITS ---
Subjective Subjective Date of Service: 11/09/20 Interval History: seen and examined this AM calm this AM, but confused knows shes at [facility] but tells me she was brought here from [facility] ROS unreliable Physical Exam Vital Signs: Vital Signs: Last Vital Signs Temp 98.5 F 11/09/20 08:00 Pulse 87 11/09/20 08:00 Resp 18 11/09/20 08:00 BP 170/70 H 11/09/20 08:00 Pulse Ox 99 11/09/20 08:00 Body Mass Index 23.3 Const: Other: General - no acute distress, appears comfortable Cardiovascular - regular rate and rhythm, S1-S2 Lungs - normal respiratory effort, clear to auscultation bilaterally, no wheezing Abdomen - soft, nontender, no rebound or guarding Extremities - no edema bilaterally Neuro - awake and alert, oriented to place but otherwise disoriented; no focal deficits Objective Data Current Medications Generic Name Dose Route Start Last Admin Trade Name Freq PRN Reason Stop Dose Admin Acetaminophen 650 mg 11/06/20 18:23 Acetaminophen 325 Mg Tablet PO Q6H PRN Pain, Mild (Pain Scale 1-3) Famotidine 40 mg 11/06/20 21:00 11/08/20 20:38 Famotidine 20 Mg Tablet PO 40 mg BID ADAM Administration Folic Acid 1 mg 11/07/20 09:00 11/08/20 10:04 Folic Acid 1 Mg Tablet PO 1 mg DAILY ADAM Administration Gabapentin 300 mg 11/07/20 09:00 11/08/20 10:05 Gabapentin 300 Mg Capsule PO 300 mg DAILY ADAM Administration Meropenem 1 gm/ Sodium 100 mls @ 100 mls/hr 11/09/20 08:00 Chloride IV Q12H ADAM Magnesium Oxide 400 mg 11/06/20 21:00 11/08/20 20:37 Magnesium Oxide 400 Mg Tablet PO 400 mg BID ADAM Administration Metoprolol Tartrate 25 mg 11/06/20 21:00 11/08/20 20:37 Metoprolol Tartrate 25 Mg Tablet PO 25 mg BID ADAM Administration Protocol Mirabegron 50 mg 11/06/20 21:00 11/08/20 20:37 Mirabegron 50 Mg Tab.Er.24h PO 50 mg BEDTIME ADAM Administration Non-Formulary Medication 4 mg 11/06/20 21:00 Fesoterodine PO BEDTIME ADAM Ondansetron HCl 4 mg 11/06/20 18:23 Ondansetron Hcl 4 Mg/2 Ml Vial IVPUSH Q8H PRN Nausea and Vomiting Pharmacy Consult 1 each 11/06/20 15:36 Consult Rx Perform Med Rec MISCELLANE ONCE PRN Consult order Sodium Chloride 3 ml 11/07/20 00:00 11/09/20 00:41 0.9 % Sodium Chloride Flush 3 Ml Syringe IVFLUSH 3 ml QSHIFT [facility] Administration Warfarin Sodium 2 mg 11/09/20 18:00 Warfarin Sodium 2 Mg Tablet PO SUTUTHSA@1800 [facility] Labs CBC & Chem 7: 11/07/20 07:39 11/08/20 07:34 Microbiology Microbiology Results: Microbiology 11/06/20 Unknown Urine clean catch - Clean Catch Midstream Urine Culture - Final Escherichia coli 11/06/20 16:06 Blood - Venous Blood Culture - Preliminary No growth after 48 hours. 11/06/20 16:06 Blood - Venous Blood Culture - Preliminary No growth after 48 hours. Assessment and Plan (1) Encephalopathy acute: Status: Acute (2) Urinary tract infection: Status: Acute Assessment and Plan: 80 yo F with a PMH of PE on coumadin, TKR last month, thrombocytopenia, Dementia (per ), who was reportedly being treated with Bactrim for an UTI. She was brought in by her for worsening confusion. 1. Acute toxic/metabolic encephalopathy multifactoral including resistant UTI, PUMA and baseline dementia (? undiagnosed) 2. ESBL E. Coli UTI change rocephin to Merrem ID consult per protocol blood cx negative anticipate she will need PICC line for 2 weeks IV antibiotics -- to be placed tomorrow 3. PUMA resolved with fluids anticipate from Bactrim use 4. Dementia with behavioral disturbances, likely undiagnosed d/w her Daughter (who is a RN) and her on the phone yesterday. They report no formal diagnosis, but do describe what appears to be cognitive memory decline. continue with behavioral modifications as tolerated 5. Supratherapeurtic INR resolved restart coumadin 6. History of PE restart coumadin today 7. Generalized weakness multifactorial plan for STR once medically stable Full Code DVT pptx, coumadin dispo: anticipate will need STR once medically stable
[2020-11-09] MEDS: Metoprolol Tartrate 25 MG TABLET PO (09:59)
[2020-11-09] MEDS: Gabapentin 300 MG CAPSULE PO (09:59)
[2020-11-09] MEDS: Folic Acid 1 MG TABLET PO (09:59)
[2020-11-09] MEDS: Famotidine 20 MG TABLET 40 MG PO (09:59)
[2020-11-09] MEDS: Magnesium Oxide 400 MG TABLET PO (09:59)
[2020-11-09] MEDS: QUEtiapine Fumarate 25 MG TABLET PO (11:20)
[2020-11-09 15:40] VITALS: BP 165/79; PULSE 92; RESP 18; TEMP 36.8; O2SAT 98
--- NOTE | 2020-11-09 16:00 | PC.NURSE ---
Addendum entered by Alecia Schneider RN 11/09/20 19:54: E-patient assisted back to her room when became kinney calm and cooperative,1:1 sitter sitting with the patient for safety Original Note: P-patient confused,uncooperative,wants to go home,left her room,walking in the hallway I-assisted patient to chair in the hallway,Elevator Erector sitting with patient,reassured patient E-patient refused to go back to her room,will monitor
[2020-11-09] MEDS: QUEtiapine Fumarate 50 MG TABLET PO (17:28)
[2020-11-09] MEDS: Acetaminophen 325 MG TABLET 650 MG PO (17:29)
[2020-11-09] MEDS: Warfarin Sodium 2 MG TABLET PO (17:29)
[2020-11-09 20:58] VITALS: BP 109/60; PULSE 84; RESP 18; TEMP 37.6; O2SAT 98
--- NOTE | 2020-11-09 23:17 | PC.NURSE ---
P-patient refused HS meds,very sleepy and tired I-Dr. Hogan notified of the above E-will monitor
[2020-11-09 23:44] VITALS: BP 100/63; PULSE 85; RESP 18; TEMP 36.3; O2SAT 98
[2020-11-10] MEDS: 0.9 % Sodium Chloride Flush 3 ML SYRINGE IVFLUSH ×3 (01:18→17:51)
[2020-11-10 06:48] VITALS: BP 122/64; PULSE 94; RESP 18; TEMP 36.4; O2SAT 98
[2020-11-10 07:03] LABS: INTERNATIONAL NORM RATIO 2.5 (0.9-1.1); Prothrombin Time 30.1 SEC (10.8-13.0)
[2020-11-10] MEDS: Metoprolol Tartrate 25 MG TABLET PO (11:06)
[2020-11-10] MEDS: Magnesium Oxide 400 MG TABLET PO (11:06)
[2020-11-10] MEDS: Famotidine 20 MG TABLET 40 MG PO (11:06)
[2020-11-10] MEDS: Folic Acid 1 MG TABLET PO (11:06)
[2020-11-10] MEDS: Gabapentin 300 MG CAPSULE PO (11:07)
--- NOTE | 2020-11-10 11:13 | MHC.CM.PN ---
Addendum entered by Archana Raymond RN 11/10/20 11:15: CM WILL ATTEMPT AGAIN LATER IN DAY. Original Note: CM ATTEMPTED TO CALL PT'S AND HCP KAROL ALFARO AT [phone] TO REVIEW IMM AND PT'S DISPOSITION.
--- NOTE | 2020-11-10 11:57 | MHC.CM.PN ---
IMM 11/10/20, CM RETURNED CALL TO /HCP KAROL ALFARO AND REVIEWED IMM AND POSSIBLE D/C PLANS, CONCERNED REGARDING D/C DUE TO PT NOT SOUNDING LIKE HERSELF AT ALL, CM WILL PASS CONCERN ALONG TO ATTENDING. PER ATTENDING PT MAY HAVE PICC LINE PLACED TODAY DUE TO POSSIBLE NEED FOR MCC IV ANTIBIOTICS AND WILL POSSIBLY DISCHARGE 11/11/20 VS TODAY 11/10/20 ON PO ANTIBIOTICS. ALSO REQUESTED REFERRAL TO [facility] WHICH CM WILL DO NOW.
--- NOTE | 2020-11-10 13:29 | P.PNIM_ITS ---
Subjective Subjective Date of Service: 11/10/20 Interval History: no complaints Cardiovascular Cardiovascular: Reports no additional cardiovascular complaints Respiratory Respiratory: Reports no additional respiratory complaints Physical Exam Vital Signs: Vital Signs: Last Vital Signs Temp 97.5 F 11/10/20 06:48 Pulse 94 11/10/20 06:48 Resp 18 11/10/20 06:48 BP 122/64 11/10/20 06:48 Pulse Ox 98 11/10/20 06:48 Body Mass Index 23.3 General: Alert, confused, no acute distress Resp: CTA bilateral CVS: S1,S2,RRR GI: soft, non tender, non distended Neuro: motor grossly intact Psych: impaired insight Objective Data Current Medications Generic Name Dose Route Start Last Admin Trade Name Freq PRN Reason Stop Dose Admin Acetaminophen 650 mg 11/06/20 18:23 11/09/20 17:29 Acetaminophen 325 Mg Tablet PO 650 mg Q6H PRN Administration Pain, Mild (Pain Scale 1-3) Famotidine 40 mg 11/06/20 21:00 11/10/20 11:06 Famotidine 20 Mg Tablet PO 40 mg BID ADAM Administration Folic Acid 1 mg 11/07/20 09:00 11/10/20 11:06 Folic Acid 1 Mg Tablet PO 1 mg DAILY ADAM Administration Gabapentin 300 mg 11/07/20 09:00 11/10/20 11:07 Gabapentin 300 Mg Capsule PO 300 mg DAILY ADAM Administration Meropenem 1 gm/ Sodium 100 mls @ 100 mls/hr 11/09/20 08:00 11/10/20 13:06 Chloride IV Infused Q12H ADAM Infusion Magnesium Oxide 400 mg 11/06/20 21:00 11/10/20 11:06 Magnesium Oxide 400 Mg Tablet PO 400 mg BID ADAM Administration Metoprolol Tartrate 25 mg 11/06/20 21:00 11/10/20 11:06 Metoprolol Tartrate 25 Mg Tablet PO 25 mg BID ADAM Administration Protocol Mirabegron 50 mg 11/06/20 21:00 11/09/20 21:03 Mirabegron 50 Mg Tab.Er.24h PO Not Given BEDTIME ADAM Non-Formulary Medication 4 mg 11/06/20 21:00 Fesoterodine PO BEDTIME ADAM Ondansetron HCl 4 mg 11/06/20 18:23 Ondansetron Hcl 4 Mg/2 Ml Vial IVPUSH Q8H PRN Nausea and Vomiting Pharmacy Consult 1 each 11/06/20 15:36 Consult Rx Perform Med Rec MISCELLANE ONCE PRN Consult order Quetiapine Fumarate 50 mg 11/09/20 17:00 11/09/20 17:28 Quetiapine Fumarate 50 Mg Tablet PO 50 mg DAILY@1700 [facility] Administration Sodium Chloride 3 ml 11/07/20 00:00 11/10/20 11:06 0.9 % Sodium Chloride Flush 3 Ml Syringe IVFLUSH 3 ml QSHIFT ADAM Administration Warfarin Sodium 2 mg 11/09/20 18:00 11/09/20 17:29 Warfarin Sodium 2 Mg Tablet PO 2 mg SUTUTHSA@1800 [facility] Administration Warfarin Sodium 4 mg 11/10/20 18:00 Warfarin Sodium 4 Mg Tablet PO MOWEFR@1800 [facility] Labs CBC & Chem 7: 11/07/20 07:39 11/08/20 07:34 Microbiology Microbiology Results: Microbiology 11/06/20 Unknown Urine clean catch - Clean Catch Midstream Urine Culture - Final Escherichia coli 11/06/20 16:06 Blood - Venous Blood Culture - Preliminary No growth after 48 hours. 11/06/20 16:06 Blood - Venous Blood Culture - Preliminary No growth after 48 hours. Assessment and Plan (1) Encephalopathy acute: Status: Acute (2) Urinary tract infection: Status: Acute Assessment and Plan: 80 yo F with a PMH of PE on coumadin, TKR last month, thrombocytopenia, Dementia (per ), who was reportedly being treated with Bactrim for an UTI. She was brought in by her for worsening confusion. Acute toxic/metabolic encephalopathy multifactoral including resistant UTI, PUMA and baseline dementia (? undiagnosed) ESBL E. Coli UTI change rocephin to Merrem ID eval, ? need to fully treat PUMA resolved with fluids and dc of Bactrim Dementia with behavioral disturbances, likely undiagnosed d/w her Daughter (who is a RN) and her on the phone yesterday. They report no formal diagnosis, but do describe what appears to be cognitive memory decline. continue with behavioral modifications as tolerated Supratherapeurtic INR resolved restart coumadin History of PE restart coumadin Generalized weakness multifactorial plan for STR once medically stable
--- NOTE | 2020-11-10 15:10 | P.CNID_ITS ---
History of Present Illness Data of Consult Service Date: 11/10/20 Requesting physician: Kiran Tubbs Primary Care Provider: Vinicius Burnett MD HPI Reason for consult: confusion She presents to hospital brought in by family with worsening confusion over last month She had knee surgery on October 06 She has had no fever or chills There was concern over whether she had UTI since she has confusion She had been treated with Bactrim for 6 days 1/9 start She has been started on Rocephin E coli ESBL sensitive to Ertapenem and Macrodantin Review of Systems Review of Systems: Yes Unobtainable due to mental status Neurologic: Reports confusion Psychiatric: Psychiatric: Reports confusion [facility] Past Medical History Medical History B12 deficiency Breast cancer Fatty liver, alcoholic GERD (gastroesophageal reflux disease) History of alcohol use History of pulmonary embolism History of right breast cancer HTN (hypertension) Hx of deep venous thrombosis Hx of hypercalcemia Hx of metabolic acidosis Hx of tuberculosis Hypomagnesemia Impaired fasting glucose Irritable bowel syndrome Osteoarthritis of left knee Osteoporosis Peripheral neuropathy Pernicious anemia Thrombocytopenia Family History Family History Father No problems noted. Mother No problems noted. Family history: reviewed and not pertinent Surgical History Surgical History (Updated 11/19/20 @ 09:43 by Art Hendrix MD) H/O right mastectomy History of appendectomy History of arthroplasty of left knee History of cataract surgery History of cystoscopy History of esophagogastroduodenoscopy (EGD) History of evacuation of hematoma History of knee replacement procedure of right knee History of left knee surgery History of lumpectomy of right breast History of tonsillectomy Hx of adenoidectomy Hx of colonoscopy S/P [id number] (total abdominal hysterectomy and bilateral salpingo-oophorectomy) Social History Social History Household Members: Spouse Housing: House Alcohol intake: current Alcohol intake frequency: 0-2 drinks per day Alcohol type: wine Smoking Status: Never smoker Advance Directives Date on File: 09/11/20 service: No Current occupational status: retired Meds Allergies Allergy/AdvReac Type Severity Reaction Status Date / Time cortisone [Cortisone] Allergy Mild PT STATES Verified 10/16/20 11:53 IT COULD AFFECT HS TB CYSTALS IN,LUNG prochlorperazine Allergy Mild LEG Verified 10/16/20 11:53 [From Compazine] NUMBNESS hydrochlorothiazide Allergy Unknown RASH Verified 10/16/20 11:53 levofloxacin [Levaquin] Allergy Unknown Wakefulness, Verified 10/16/20 11:53 nausea, shaking codeine AdvReac Unknown NAUSEA/VOMI Verified 10/16/20 11:53 TING chocolate Allergy Unknown severe Uncoded 08/18/20 15:35 headaches/vomiting Home Medications Medication Instructions Recorded Confirmed Type fesoterodine 4 mg tablet,extended 4 mg PO BEDTIME 09/09/20 11/06/20 History release 24 hr metoprolol tartrate 25 mg tablet 25 mg PO BID 09/09/20 11/06/20 History famotidine 20 mg tablet 40 mg PO BID tab 09/11/20 11/06/20 History Myrbetriq 50 mg PO BEDTIME 10/06/20 11/06/20 History folic acid 1 mg PO DAILY 10/06/20 11/06/20 History gabapentin 300 mg PO DAILY 10/06/20 11/06/20 History magnesium oxide 400 mg PO BID 10/06/20 11/06/20 History warfarin 2 mg PO SUTUTHSA@1800 10/06/20 11/06/20 History warfarin 4 mg PO MOWEFR@1800 10/06/20 11/06/20 History Physical Exam Vital Signs: Vital Signs: Last Vital Signs Temp 97.5 F 11/10/20 06:48 Pulse 94 11/10/20 06:48 Resp 18 11/10/20 06:48 BP 122/64 11/10/20 06:48 Pulse Ox 98 11/10/20 06:48 Body Mass Index 23.3 Const: General: confusion Orientation/consciousness: confusion HENMT: Head: Yes normal to inspection Mouth: Normal oral and palatal mucosa present Eyes: General: appearance normal, both eyes and all related structures Resp: Effort & Inspection: normal respiratory effort Cardio: Rate: regular rate Rhythm: regular rhythm GI: Palpation (GI): Soft to palpation and not firm Skin: General skin exam: no rashes or lesions noted Neuro: General: confusion Extrem: General: Yes normal to inspection Assessment and Plan (1) Urinary tract infection: Qualifiers: Hematuria presence: without hematuria Urinary tract infection type: site unspecified Qualified Code(s): N39.0 - Urinary tract infection, site not specified Problem details: She has resistant UTI She has ability to take oral Organism is sensitive to macrodantin Status: Acute Continue macrodantin for 10 days (2) Weakness: Status: Acute Results Labs CBC & Chem 7: 11/11/20 05:41 11/11/20 05:41 Microbiology Microbiology Results: Microbiology 11/06/20 Unknown Urine clean catch - Clean Catch Midstream Urine Culture - Final Escherichia coli 11/06/20 16:06 Blood - Venous Blood Culture - Preliminary No growth after 48 hours. 11/06/20 16:06 Blood - Venous Blood Culture - Preliminary No growth after 48 hours.
[2020-11-10 16:00] VITALS: BP 142/68; PULSE 92; RESP 19; TEMP 36.8; O2SAT 100
[2020-11-10] MEDS: QUEtiapine Fumarate 50 MG TABLET PO (16:49)
[2020-11-10] MEDS: Nitrofurantoin Monohyd/M-Cryst 100 MG CAPSULE PO (16:50)
[2020-11-10] MEDS: Warfarin Sodium 4 MG TABLET PO (17:58)
--- NOTE | 2020-11-10 19:23 | PC.NURSE ---
Pts family member called and stated the only SNF pt will go to will be [facility], will pass along to case management.
[2020-11-11] VITALS: BP 169/87; PULSE 102; RESP 19; TEMP 36.7; O2SAT 96
[2020-11-11] MEDS: 0.9 % Sodium Chloride Flush 3 ML SYRINGE IVFLUSH ×4 (00:37→23:31)
[2020-11-11 06:13] LABS: INTERNATIONAL NORM RATIO 2.8 (0.9-1.1); Prothrombin Time 33.3 SEC (10.8-13.0)
[2020-11-11 06:22] LABS: Basophils Percent Auto 0.1 % (0-2); Hematocrit 38.6 % (37-47); Hemoglobin 12.7 g/dl (12.0-16.0); Imm Gran Abs Auto 0.08 X10*3/uL (0.00-0.03); Imm Gran Pct Auto 0.5 % (0.0-0.4); Lymphocytes Absolute Auto 0.2 X10*3/uL (1.2-4.9); Lymphocytes Percent Auto 1.4 % (20-40); MANUAL DIFF FLAG SCAN; Mean Corpuscular HGB Conc 32.9 g/dl (31.0-35.0); Mean Corpuscular Hemoglobin 32.8 pg (27.0-33.0); Mean Corpuscular Volume 99.7 fL (80-98); Mean Platelet Volume 11.3 fL (9.4-12.3); Monocytes Absolute Auto 0.5 X10*3/uL (0.1-1.2); Monocytes Percent Auto 2.8 % (2-11); Neutrophils Absolute Auto 15.7 X10*3/uL (2.0-8.3); Neutrophils Percent Auto 95.2 % (45-73); Platelet Count 154 X10*3/uL (160-400); Red Blood Count 3.87 X10*6/uL (4.20-5.50); Red Cell Distribution Width 15.5 % (11.0-16.0); SCAN SMEAR FLAG 1; White Blood Count 16.5 X10*3/uL (4.8-10.8)
[2020-11-11 06:46] LABS: Anion Gap 18 (12-20); Blood Urea Nitrogen 12 mg/dL (9-16); Calcium 8.4 mg/dL (8.4-10.2); Carbon Dioxide 18 mmol/L (22-29); Chloride 100 mmol/L (96-108); Creatinine Clr Calc Pharmacy 30.9; Estimated Glomerular Filt Rate 42; Glucose Fasting 135 mg/dL (60-99); Potassium 4.4 mmol/l (3.3-5.1); Sodium 132 mmol/L (135-145)
[2020-11-11 07:24] LABS: SLIDE REVIEW VERIFIED
[2020-11-11 08:00] VITALS: BP 177/89; PULSE 124; RESP 18; TEMP 36.7; O2SAT 97
[2020-11-11] MEDS: Metoprolol Tartrate 25 MG TABLET PO (10:08)
[2020-11-11] MEDS: Gabapentin 300 MG CAPSULE PO (10:08)
[2020-11-11] MEDS: Famotidine 20 MG TABLET 40 MG PO (10:08)
[2020-11-11] MEDS: Magnesium Oxide 400 MG TABLET PO (10:08)
[2020-11-11] MEDS: Acetaminophen 325 MG TABLET 650 MG PO (10:09)
[2020-11-11] MEDS: Folic Acid 1 MG TABLET PO (10:09)
--- NOTE | 2020-11-11 10:55 | P.DS_ITS ---
DS: Providers Provider Date of Service: 11/12/20 Date of admission: 11/06/20 18:23 Primary care physician: Vinicius Burnett MD Consults: 11/09/20 07:45 Consult to Infectious Diseases Routine Consulting Provider: Jyothi Serrano Reason for consultation: ESBL UTI DS: Diagnosis Discharge Diagnosis (1) Urinary tract infection: Status: Acute Problem details: She has resistant UTI She has ability to take oral Organism is sensitive to macrodantin (2) Weakness: Status: Acute (3) Encephalopathy acute: Status: Acute (4) PUMA (acute kidney injury): Status: Acute DS: Medications Discharge Medications Home Medications: Home Medications Medication Instructions Recorded Confirmed fesoterodine 4 mg tablet,extended 4 mg PO BEDTIME 09/09/20 11/06/20 release 24 hr metoprolol tartrate 25 mg tablet 25 mg PO BID 09/09/20 11/06/20 famotidine 20 mg tablet 40 mg PO BID tab 09/11/20 11/06/20 Myrbetriq 50 mg PO BEDTIME 10/06/20 11/06/20 folic acid 1 mg PO DAILY 10/06/20 11/06/20 gabapentin 300 mg PO DAILY 10/06/20 11/06/20 magnesium oxide 400 mg PO BID 10/06/20 11/06/20 warfarin 2 mg PO SUTUTHSA@1800 10/06/20 11/06/20 warfarin 4 mg PO MOWEFR@1800 10/06/20 11/06/20 Previous Rx's Medication Instructions Recorded acetaminophen 650 mg PO Q6H 30 Days #240 tab 10/09/20 nitrofurantoin monohyd/m-cryst 100 mg PO Q12H #18 cap 11/11/20 DS: Summary Hospital Course Hospital Course: date of encounter 11/12/2020 Patient was admitted for acute metabolic encephalopathy due to urinary tract infection complicated by acute kidney injury. Acute kidney injury resolved with IV fluids and discontinuation of Bactrim. Her altered mental status was combination of encephalopathy due to UTI and acute kidney injury with also element of hospital do related delirium in patient with underlying dementia. Her mental status did improve, although, patient still has some confusion. Her urine culture grew ESBL E coli. Discussion was had with infectious disease recommended nitrofurantoin for 10 days. Due to debility [facility], patient's HCP, her is aware and agrees. Time Spent with Patient Time attestation: Total time spent providing and/or coordinating discharge services: Discharge coordination time: Greater than 30 minutes Physical Exam Vital Signs: Vital Signs: Last Vital Signs Temp 98.1 F 11/11/20 08:00 Pulse 124 H 11/11/20 08:00 Resp 18 11/11/20 08:00 BP 177/89 H 11/11/20 08:00 Pulse Ox 97 11/11/20 08:00 Body Mass Index 23.3 General: Alert, no acute distress Resp: CTA bilateral CVS: S1,S2,RRR GI: soft, non tender, non distended Neuro: motor grossly intact Psych: appropriate affect DS: Data Data Completed and Pending Completed studies during hospitalization [Text1]: Procedures Replacement of Left Knee Joint with Synthetic Substitute, Uncemented, Open Approach (10/06/20) Transfusion of Nonautologous Red Blood Cells into Peripheral Vein, Percutaneous Approach (10/06/20) Labs on day of discharge: Laboratory Tests 11/06/20 11/06/20 11/06/20 12:40 13:37 13:37 WBC 4.8 RBC 3.27 L Hgb 10.9 L Hct 33.0 L MCV 100.9 H MCH 33.3 H MCHC 33.0 RDW 15.9 Plt Count 152 L D MPV 11.0 Immature Gran % (Auto) 0.8 H Neut % (Auto) 61.9 Lymph % (Auto) 21.8 [place] % (Auto) 14.1 H Eos % (Auto) 0.6 Baso % (Auto) 0.8 Lymph # (Auto) 1.0 L [place] # (Auto) 0.7 Eos # (Auto) 0.0 Baso # (Auto) 0.0 Abs Immat Gran (auto) 0.04 H Absolute Neuts (auto) 2.9 Absolute Nucleated RBC 0.000 Nucleated RBC % (auto) 0.0 Smear Tech's Comments PT 56.8 H D INR 4.7 H Sodium Potassium Chloride Carbon Dioxide Anion Gap BUN Creatinine Estim Creat Clear Calc Estimated GFR Random Glucose Fasting Glucose Lactic Acid Calcium Magnesium Total Bilirubin AST ALT Alkaline Phosphatase Troponin I High Sens Total Protein Albumin Lipase TSH Urine Color STRAW Urine Appearance CLOUDY Urine pH 7.0 Ur Specific [place] 1.015 Urine Protein NEG Urine Glucose (UA) NEG Urine Ketones NEG Urine Blood TRACE Urine Nitrite NEG Ur Leukocyte Esterase 2+ H Urine RBC 0-2 Urine WBC TNTC H Ur Squamous Epith Cells TRACE Urine Bacteria 2+ COVID-19 ([facility]) COVID-19 Clin Com 11/06/20 11/06/20 11/06/20 13:37 13:37 13:37 WBC RBC Hgb Hct MCV MCH MCHC RDW Plt Count MPV Immature Gran % (Auto) Neut % (Auto) Lymph % (Auto) [place] % (Auto) Eos % (Auto) Baso % (Auto) Lymph # (Auto) [place] # (Auto) Eos # (Auto) Baso # (Auto) Abs Immat Gran (auto) Absolute Neuts (auto) Absolute Nucleated RBC Nucleated RBC % (auto) Smear Tech's Comments PT INR Sodium 132 L Potassium 3.8 Chloride 97 Carbon Dioxide 24 Anion Gap 15 BUN 19 H D Creatinine 1.89 H Estim Creat Clear Calc 20.2 Estimated GFR 26 Random Glucose 94 Fasting Glucose Lactic Acid Calcium 8.4 Magnesium 2.1 Total Bilirubin 0.5 AST 21 ALT 11 Alkaline Phosphatase 105 D Troponin I High Sens 4.1 Total Protein 6.2 L Albumin 3.6 Lipase 23 TSH 3.01 Urine Color Urine Appearance Urine pH Ur Specific [place] Urine Protein Urine Glucose (UA) Urine Ketones Urine Blood Urine Nitrite Ur Leukocyte Esterase Urine RBC Urine WBC Ur Squamous Epith Cells Urine Bacteria COVID-19 ([facility]) COVID-19 Clin Com 11/06/20 11/06/20 11/07/20 15:44 16:06 07:39 WBC 4.4 L RBC 3.14 L Hgb 10.4 L Hct 31.7 L MCV 101.0 H MCH 33.1 H MCHC 32.8 RDW 16.1 H Plt Count 147 L MPV 11.5 Immature Gran % (Auto) 0.7 H Neut % (Auto) 65.2 Lymph % (Auto) 19.0 L [place] % (Auto) 13.3 H Eos % (Auto) 0.7 Baso % (Auto) 1.1 Lymph # (Auto) 0.8 L [place] # (Auto) 0.6 Eos # (Auto) 0.0 Baso # (Auto) 0.1 Abs Immat Gran (auto) 0.03 Absolute Neuts (auto) 2.8 Absolute Nucleated RBC 0.000 Nucleated RBC % (auto) 0.0 Smear Tech's Comments PT INR Sodium Potassium Chloride Carbon Dioxide Anion Gap BUN Creatinine Estim Creat Clear Calc Estimated GFR Random Glucose Fasting Glucose Lactic Acid 2.0 Calcium Magnesium Total Bilirubin AST ALT Alkaline Phosphatase Troponin I High Sens Total Protein Albumin Lipase TSH Urine Color Urine Appearance Urine pH Ur Specific [place] Urine Protein Urine Glucose (UA) Urine Ketones Urine Blood Urine Nitrite Ur Leukocyte Esterase Urine RBC Urine WBC Ur Squamous Epith Cells Urine Bacteria COVID-19 ([facility]) Negative COVID-19 Clin Com See Note 11/07/20 11/07/20 11/08/20 07:42 10:13 07:34 WBC RBC Hgb Hct MCV MCH MCHC RDW Plt Count MPV Immature Gran % (Auto) Neut % (Auto) Lymph % (Auto) [place] % (Auto) Eos % (Auto) Baso % (Auto) Lymph # (Auto) [place] # (Auto) Eos # (Auto) Baso # (Auto) Abs Immat Gran (auto) Absolute Neuts (auto) Absolute Nucleated RBC Nucleated RBC % (auto) Smear Tech's Comments PT 64.4 H INR 5.3 H* Sodium 135 134 L Potassium 4.1 4.6 Chloride 102 102 Carbon Dioxide 19 L 21 L Anion Gap 18 16 BUN 16 11 Creatinine 1.57 H 1.35 Estim Creat Clear Calc 24.4 28.4 Estimated GFR 32 38 Random Glucose 95 91 Fasting Glucose Lactic Acid Calcium 7.9 L 8.2 L Magnesium Total Bilirubin AST ALT Alkaline Phosphatase Troponin I High Sens Total Protein Albumin Lipase TSH Urine Color Urine Appearance Urine pH Ur Specific [place] Urine Protein Urine Glucose (UA) Urine Ketones Urine Blood Urine Nitrite Ur Leukocyte Esterase Urine RBC Urine WBC Ur Squamous Epith Cells Urine Bacteria COVID-19 ([facility]) COVID-19 Clin Com 11/08/20 11/09/20 11/10/20 07:34 06:10 06:02 WBC RBC Hgb Hct MCV MCH MCHC RDW Plt Count MPV Immature Gran % (Auto) Neut % (Auto) Lymph % (Auto) [place] % (Auto) Eos % (Auto) Baso % (Auto) Lymph # (Auto) [place] # (Auto) Eos # (Auto) Baso # (Auto) Abs Immat Gran (auto) Absolute Neuts (auto) Absolute Nucleated RBC Nucleated RBC % (auto) Smear Tech's Comments PT 50.1 H D 34.5 H D 30.1 H INR 4.2 H 2.9 H 2.5 H Sodium Potassium Chloride Carbon Dioxide Anion Gap BUN Creatinine Estim Creat Clear Calc Estimated GFR Random Glucose Fasting Glucose Lactic Acid Calcium Magnesium Total Bilirubin AST ALT Alkaline Phosphatase Troponin I High Sens Total Protein Albumin Lipase TSH Urine Color Urine Appearance Urine pH Ur Specific [place] Urine Protein Urine Glucose (UA) Urine Ketones Urine Blood Urine Nitrite Ur Leukocyte Esterase Urine RBC Urine WBC Ur Squamous Epith Cells Urine Bacteria COVID-19 ([facility]) COVID-19 Clin Com 11/11/20 11/11/20 11/11/20 05:41 05:41 06:00 WBC 16.5 H RBC 3.87 L D Hgb 12.7 D Hct 38.6 D MCV 99.7 H MCH 32.8 MCHC 32.9 RDW 15.5 Plt Count 154 L MPV 11.3 Immature Gran % (Auto) 0.5 H Neut % (Auto) 95.2 H Lymph % (Auto) 1.4 L [place] % (Auto) 2.8 Eos % (Auto) 0.0 Baso % (Auto) 0.1 Lymph # (Auto) 0.2 L [place] # (Auto) 0.5 Eos # (Auto) 0.0 Baso # (Auto) 0.0 Abs Immat Gran (auto) 0.08 H Absolute Neuts (auto) 15.7 H Absolute Nucleated RBC 0.000 Nucleated RBC % (auto) 0.0 Smear Tech's Comments VERIFIED PT 33.3 H INR 2.8 H Sodium 132 L Potassium 4.4 Chloride 100 Carbon Dioxide 18 L Anion Gap 18 BUN 12 Creatinine 1.24 Estim Creat Clear Calc 30.9 Estimated GFR 42 Random Glucose Fasting Glucose 135 H Lactic Acid Calcium 8.4 Magnesium Total Bilirubin AST ALT Alkaline Phosphatase Troponin I High Sens Total Protein Albumin Lipase TSH Urine Color Urine Appearance Urine pH Ur Specific [place] Urine Protein Urine Glucose (UA) Urine Ketones Urine Blood Urine Nitrite Ur Leukocyte Esterase Urine RBC Urine WBC Ur Squamous Epith Cells Urine Bacteria COVID-19 ([facility]) COVID-19 Clin Com Preliminary micro results at discharge 11/06/20 16:06 Blood Culture - Preliminary Blood - Venous No growth after 48 hours. 11/06/20 16:06 Blood Culture - Preliminary Blood - Venous No growth after 48 hours. Discharge Plan Discharge Patient Disposition: Xfer SNF Referrals: Po,Vinicius Magdaleno MD [Primary Care Provider] - Discharge Medications: New nitrofurantoin monohyd/m-cryst 100 mg Capsule 100 mg PO Q12H Qty: 18 RF: 0 Continued warfarin 2 mg Tablet 2 mg PO SUTUTHSA@1800 RF: 0 warfarin 2 mg Tablet 4 mg PO MOWEFR@1800 RF: 0 Hold Instructions: using 2 mg tab folic acid 1 mg Tablet 1 mg PO DAILY RF: 0 magnesium oxide 400 mg magnesium Tablet 400 mg PO BID RF: 0 gabapentin 300 mg capsule 300 mg PO DAILY RF: 0 Myrbetriq 50 mg tablet extended release 24 hr 50 mg PO BEDTIME RF: 0 acetaminophen 325 mg Tablet 650 mg PO Q6H 30 Days Qty: 240 RF: 0 metoprolol tartrate 25 mg tablet 25 mg PO BID RF: 0 fesoterodine 4 mg tablet extended release 24 hr 4 mg PO BEDTIME RF: 0 famotidine 20 mg tablet 40 mg PO BID RF: 0 Discontinued sulfamethoxazole-trimethoprim [Bactrim DS] 800-160 mg tablet 1 tab PO BID Qty: 14 RF: 0 oxycodone 10 mg tablet 10 mg PO Q6H 7 Days Qty: 28 RF: 0 Discharge Orders: Discharge Order (Routine); Ordered 11/12/20 Ordered By: Kiran Tubbs Activity on Discharge: As tolerated Visit Report Forms: Patient Portal Discharge page Care Plan Goals: recovery Health Concerns: esbl uti Plan of Treatment: 10d total of nitrofurantoin
[2020-11-11 11:31] LABS: COVID-19 Test Negative (Negative)
--- NOTE | 2020-11-11 11:36 | MHC.CM.PN ---
PT WILL DISCAHRGE TODAY AT 1PM TO [facility] VIA BLS TRANSPORT LONG PT'S IS OK WITH IT. PER ADMISSIONS AT [facility] PT CAN BE TRANSFERRED TO [facility] IN TWO WEEKS IF PT CONTINUES TO NEED STR AT THANT TIME. CM ATTEMPTED TO CALL WHO DID NOT ANSWER, CM WILL ATTEMPT TO CALL AGAIN AT 12PM.
--- NOTE | 2020-11-11 12:14 | MHC.CM.PN ---
CM SPOKE WITH PT'S /HCP WHO REPORTED PT'S DAUGHTER CALLED [facility] AND THEY HAVE ACCEPTED HER, CM CALLED STEVE WHO REPORT THEY HAVE NOT OFFICIALLY ACCEPTED HER AND NEEDED MORE INFO, REFERRAL UPDATED AND CM AWAITING REPSONSE. CM GAVE STEVE ADMITTING DIRECT LINE.
--- NOTE | 2020-11-11 12:42 | P.PNIM_ITS ---
Subjective Subjective Date of Service: 11/11/20 Interval History: no complaints Cardiovascular Cardiovascular: Reports no additional cardiovascular complaints Gastrointestinal Gastrointestinal: Reports no additional gastrointestinal complaints Physical Exam Vital Signs: Vital Signs: Last Vital Signs Temp 98.1 F 11/11/20 08:00 Pulse 124 H 11/11/20 08:00 Resp 18 11/11/20 08:00 BP 177/89 H 11/11/20 08:00 Pulse Ox 97 11/11/20 08:00 Body Mass Index 23.3 General: Alert, no acute distress Resp: CTA bilateral CVS: S1,S2,RRR GI: soft, non tender, non distended Neuro: motor grossly intact Psych: appropriate affect Objective Data Current Medications Generic Name Dose Route Start Last Admin Trade Name Freq PRN Reason Stop Dose Admin Acetaminophen 650 mg 11/06/20 18:23 11/11/20 10:09 Acetaminophen 325 Mg Tablet PO 650 mg Q6H PRN Administration Pain, Mild (Pain Scale 1-3) Famotidine 40 mg 11/06/20 21:00 11/11/20 10:08 Famotidine 20 Mg Tablet PO 40 mg BID ADAM Administration Folic Acid 1 mg 11/07/20 09:00 11/11/20 10:09 Folic Acid 1 Mg Tablet PO 1 mg DAILY ADAM Administration Gabapentin 300 mg 11/07/20 09:00 11/11/20 10:08 Gabapentin 300 Mg Capsule PO 300 mg DAILY ADAM Administration Magnesium Oxide 400 mg 11/06/20 21:00 11/11/20 10:08 Magnesium Oxide 400 Mg Tablet PO 400 mg BID ADAM Administration Metoprolol Tartrate 25 mg 11/06/20 21:00 11/11/20 10:08 Metoprolol Tartrate 25 Mg Tablet PO 25 mg BID ADAM Administration Protocol Mirabegron 50 mg 11/06/20 21:00 11/10/20 20:23 Mirabegron 50 Mg Tab.Er.24h PO Not Given BEDTIME ADAM Nitrofurantoin Macrocrystals 100 mg 11/10/20 15:30 11/11/20 03:50 Nitrofurantoin Monohyd/M-Cryst 100 Mg Capsule PO Not Given Q12H ADAM Non-Formulary Medication 4 mg 11/06/20 21:00 Fesoterodine PO BEDTIME ADAM Ondansetron HCl 4 mg 11/06/20 18:23 Ondansetron Hcl 4 Mg/2 Ml Vial IVPUSH Q8H PRN Nausea and Vomiting Pharmacy Consult 1 each 11/06/20 15:36 Consult Rx Perform Med Rec MISCELLANE ONCE PRN Consult order Quetiapine Fumarate 50 mg 11/09/20 17:00 11/10/20 16:49 Quetiapine Fumarate 50 Mg Tablet PO 50 mg DAILY@1700 [facility] Administration Sodium Chloride 3 ml 11/07/20 00:00 11/11/20 10:08 0.9 % Sodium Chloride Flush 3 Ml Syringe IVFLUSH 3 ml QSHIFT ADAM Administration Warfarin Sodium 2 mg 11/09/20 18:00 11/09/20 17:29 Warfarin Sodium 2 Mg Tablet PO 2 mg SUTUTHSA@1800 ADAM Administration Warfarin Sodium 4 mg 11/10/20 18:00 11/10/20 17:58 Warfarin Sodium 4 Mg Tablet PO 4 mg MOWEFR@1800 [facility] Administration Labs CBC & Chem 7: 11/11/20 05:41 11/11/20 05:41 Microbiology Microbiology Results: Microbiology 11/06/20 Unknown Urine clean catch - Clean Catch Midstream Urine Culture - Final Escherichia coli 11/06/20 16:06 Blood - Venous Blood Culture - Preliminary No growth after 48 hours. 11/06/20 16:06 Blood - Venous Blood Culture - Preliminary No growth after 48 hours. Assessment and Plan (1) Urinary tract infection: Problem details: She has resistant UTI She has ability to take oral Organism is sensitive to macrodantin Status: Acute (2) Weakness: Status: Acute (3) Encephalopathy acute: Status: Acute (4) PUMA (acute kidney injury): Status: Acute Assessment and Plan: 80 yo F with a PMH of PE on coumadin, TKR last month, thrombocytopenia, Dementia (per ), who was reportedly being treated with Bactrim for an UTI. She was brought in by her for worsening confusion. Acute toxic/metabolic encephalopathy multifactoral including resistant UTI, PUMA and baseline dementia (? undiagnosed) ESBL E. Coli UTI id appreciated, macrodantin for 10 day total PUMA resolved with fluids and dc of Bactrim Dementia with behavioral disturbances, likely undiagnosed continue with behavioral modifications as tolerated Supratherapeurtic INR resolved restarted coumadin History of PE restart coumadin Generalized weakness multifactorial plan for STR awaiting placemnet
--- NOTE | 2020-11-11 12:55 | MHC.CM.PN ---
CM RECEIVED A CALL FROM ADMITTING AT [facility] WHO REPORT THE PT WAS DECLINED DUE TO NOT HAVING AN APPROPRIATE DIAGNOSIS,PT SEEMS TOO CONFUSED AND THEY DO NOT FEEL PT IS A GOOD CANDIDATE FOR THEIR REHAB PROGRAM DUE TO PT NOT PARTICIPATING IN PT AND HAVING DIFFICULTY FOLLOWING DEMANDS. HERBIE CALLED PT'S KAROL BACK TO LET HIM KNOW PT WAS DECLINED, PER OUR DISCUSSION ADDITIONAL REFERRALS MADE TO [facility].
[2020-11-11] MEDS: Nitrofurantoin Monohyd/M-Cryst 100 MG CAPSULE PO (14:30)
--- NOTE | 2020-11-11 15:08 | MHC.CM.PN ---
CM SPOKE WITH PT'S /HCP AT APPROXIMATELY 1435 WHO REQUESTED CM SPEAK WITH PT'S DAUGHTER AMADOR DUE TO THE DAUGHTER AND SON-IN-LAW GIVING CONFLICTING INFORMATION REGARDING PT BEING ACCEPTED AT [facility], CM ATTEMPTED TO CALL DAUGHTER AT 1500 AND LEFT MESSAGE TO RETURN CALL. HERBIE SPOKE WITH ANN AT [facility] WHO REPORTS THE DAUGHTER AND DOREEN HAVE CALLED MULTIPLE TIMES AND THEY WERE TOLD THERE WAS NO GUARANTEE PT WOULD GET A BED. CM CALLED PT'S /HCP AND UPDATED HIM ON PT'S STATUS WITH [facility] AND STATUS OF OTHER REFERRALS MADE.
--- NOTE | 2020-11-11 15:54 | MHC.CM.PN ---
CM RECEIVED PHONE CALL AT 1540 FROM PT'S DAUGHTER AMADOR WHO KEPT ASKING CM WHAT THEY TOLD STEVE, CM ATTEMPTED TO EXPLAIN REFERRAL PROCESS AND REASONSING WHY SHE WAS NOT ACCEPTED TO PT'S DAUGHTER HOWEVER WAS UNABLE TO DUE TO DAUGHTERS MULTIPLE INTERRUPTIONS AND REPEATEDLY STATING, [facility] THE [facility] PT'S DAUGHTER DID VOICE CONCERNS ABOUT PT'S STRENGTH AND THAT SHE NEEDS TO GET STRONGER AND THAT HER PRIMARY PROBLEM IS HER KNEE. CM TRIED TO REASSURE DAUGHTER THAT SHE WOULD BE GETTING PHYSICAL THERAPY HOWEVER DAUGHTER INTERRUPTED CM AND WAS BELLIGERENT AND ACCUSATORY STATING, WHAT DID YOU TELL THEM, WHAT DID YOU TELL THEM AND THEN BEGAN REPEATING [facility] THE [facility] SHE IS GOING . CM DID SUGGEST SHE SPEAK WITH HER FATHER ABOUT OTHER OPTIONS AND THAT ULTIMATELY IT IS THE FATHERS DECISION HE IS THE HEALTH CARE PROXY. CM DID END CALL WHEN PT'S DAUGHTER BEGAN CHANTING [facility] . PT'S DAUGHTER ENDED WITH I'M CALLING [facility] RIGHT NOW
[2020-11-11 16:00] VITALS: BP 103/59; PULSE 84; RESP 15; TEMP 36.4; O2SAT 97
[2020-11-11] MEDS: QUEtiapine Fumarate 50 MG TABLET PO (17:17)
[2020-11-11] MEDS: Warfarin Sodium 2 MG TABLET PO (17:17)
[2020-11-11 20:42] VITALS: BP 151/79; O2SAT 99
[2020-11-12] VITALS: BP 148/85; PULSE 115; RESP 16; TEMP 36.9; O2SAT 99
[2020-11-12] MEDS: Nitrofurantoin Monohyd/M-Cryst 100 MG CAPSULE PO ×2 (04:46→14:23)
[2020-11-12 06:57] LABS: INTERNATIONAL NORM RATIO 2.8 (0.9-1.1); Prothrombin Time 34.2 SEC (10.8-13.0)
[2020-11-12 07:39] VITALS: BP 163/89; PULSE 78; RESP 17; TEMP 36.9; O2SAT 97
[2020-11-12] MEDS: Folic Acid 1 MG TABLET PO (09:05)
[2020-11-12] MEDS: Metoprolol Tartrate 25 MG TABLET PO (09:05)
[2020-11-12] MEDS: Gabapentin 300 MG CAPSULE PO (09:05)
[2020-11-12] MEDS: Famotidine 20 MG TABLET 40 MG PO (09:05)
[2020-11-12] MEDS: Magnesium Oxide 400 MG TABLET PO (09:05)
[2020-11-12] MEDS: 0.9 % Sodium Chloride Flush 3 ML SYRINGE IVFLUSH (09:06)
--- NOTE | 2020-11-12 09:54 | MHC.CM.PN ---
CM RECEIVED RETURN PHONE CALL FROM PT'S /HCP KAROL REGARDING PLACEMENT, WHILE ON PHONE WITH [facility] SENT CM A MESSAGE THAT THEY DID NOT HAVE A BED AVAILABLE, PT'S WAS INFORMED OF THIS AND IS IN AGREEMENT TO SEND PT TO [facility] IN [place], PT'S GIVEN ADDRESS AND MAIN NUMBER OF [facility] AND MESSAGE SENT VIA [facility] TO ADMISSIONS [facility] THAT PT'S WOULD APPRECIATE A PHONE CALL. CM TO SET UP TRANSPORT TIME WHEN ARRANGED WITH [facility].
--- NOTE | 2020-11-12 10:31 | MHC.CM.PN ---
CM RECEIVED PHONE CALL AT 10:20AM FROM PT'S DAUGHTER AMADOR, PT'S DAUGHTER WAS CALMER ON PHONE AND DID SAY SHE SPOKE WITH HER FATHER AND KNOWS PT IS TRANSFERRING TO [facility] TODAY, DAUGHTER WAS RAMBLING ABOUT SPEAKING WITH DR SPAIN AND DR BELLO AND WAS UNINTELLIGIBLE FOR A SHORT TIME. PT'S DAUGHTER DID VOICE THAT SHE WAS PLEASED WITH THE PLACEMENT AT THIS TIME AND IS RELIEVED SHE IS GOING THERE AND APPRECIATES THE HELP.
--- NOTE | 2020-11-12 11:46 | MHC.CM.PN ---
PT DISCHARGING TODAY AT 3:30PM TO [facility] WITH BLS TRANSPORT VIA [facility], FAMILY AWARE. INITIAL TIME WAS 2PM HOWEVER ACCEPTING FACILITY HAD TO PUSH BACK TIME UNTIL 3:30PM.
[2020-11-12 15:41] VITALS: BP 131/72; PULSE 97; RESP 18; TEMP 36.7; O2SAT 96
== END 2020-11-12 17:19 | disposition skilled nursing facility (03) | DRG 689 ==
LOC: HO.ED 12:32 → HO.S3 18:49
PROVIDERS: Nurse Practitioner Acute Care; Admitting Provider Family Medicine; Emergency Provider Emergency Medicine Emergency Medical Services; PCP Internal Medicine; Visit Provider Internal Medicine
DX: N39.0 Urinary tract infection, site not specified (principal); G92 Toxic encephalopathy; N17.9 Acute kidney failure, unspecified; F03.91 Unspecified dementia, unspecified severity, with behavioral disturbance; Z16.12 Extended spectrum beta lactamase (ESBL) resistance; R79.1 Abnormal coagulation profile; K21.9 Gastro-esophageal reflux disease without esophagitis; Z85.3 Personal history of malignant neoplasm of breast; B96.20 Unspecified Escherichia coli [E. coli] as the cause of diseases classified elsewhere; Z86.711 Personal history of pulmonary embolism; Z20.822 Contact with and (suspected) exposure to COVID-19; Z88.5 Allergy status to narcotic agent; Z79.01 Long term (current) use of anticoagulants; Z79.899 Other long term (current) drug therapy
CPT/HCPCS: 36415; 70450; 71046; 80048; 80053; 81001; 81003; 83605; 83690; 83735; 84443; 84484; 85025; 85610; 87040; 87086; 87088; 87186; 87635; 93005; 97162; 99285; J0696; J2185

== ENCOUNTER → 2020-11-19 09:07 | Outpatient (BNVA) | payer MEDICARE, SELFPAY | PROVIDERS: PCP Internal Medicine; Visit Provider Orthopaedic Surgery | DX: Z47.1 Aftercare following joint replacement surgery (principal); Z96.652 Presence of left artificial knee joint | CPT/HCPCS: 99212 ==

== ENCOUNTER 2021-01-12 10:52 | Outpatient (REF) | payer MEDICARE, SELFPAY ==
--- NOTE | ~2021-01-12 | XR_ITS ---
EXAMINATION: XR KNEES, STANDING AP XR KNEE, LEFT CLINICAL INFORMATION: Knee pain COMPARISON: Radiographs left knee 10/07/2020; standing AP knees 07/22/2020 TECHNIQUE: Standing AP view of both knees is performed along with lateral view left knee. FINDINGS: Left knee: Status post left total knee arthroplasty. Hardware intact. No fracture or dislocation. No destructive process or osteolysis. Lateral view shows suprapatellar effusion and edema in region of Hoffa's fat pad. Mild superficial prepatellar soft tissue swelling. No gas tracking in soft tissues. No periostitis. Right: Status post knee arthroplasty. Hardware intact. No fracture, dislocation, or destructive process. XR/XR knee LT 2V IMPRESSION: 1. Left: Knee arthroplasty. Hardware intact. No destructive process. Effusion and prepatellar soft tissue swelling. 2. Right: Prior knee arthroplasty. Unremarkable.
--- NOTE | ~2021-01-12 | XR_ITS ---
EXAMINATION: XR KNEES, STANDING AP XR KNEE, LEFT CLINICAL INFORMATION: Knee pain COMPARISON: Radiographs left knee 10/07/2020; standing AP knees 07/22/2020 TECHNIQUE: Standing AP view of both knees is performed along with lateral view left knee. FINDINGS: Left knee: Status post left total knee arthroplasty. Hardware intact. No fracture or dislocation. No destructive process or osteolysis. Lateral view shows suprapatellar effusion and edema in region of [place]'s fat pad. Mild superficial prepatellar soft tissue swelling. No gas tracking in soft tissues. No periostitis. Right: Status post knee arthroplasty. Hardware intact. No fracture, dislocation, or destructive process. XR/XR knee standing BI IMPRESSION: 1. Left: Knee arthroplasty. Hardware intact. No destructive process. Effusion and prepatellar soft tissue swelling. 2. Right: Prior knee arthroplasty. Unremarkable.
== END 2021-01-12 10:53 | disposition home or self-care (01) ==
LOC: HO.HOSX 10:52
PROVIDERS: Visit Provider Orthopaedic Surgery
DX: Z13.89 Encounter for screening for other disorder (principal)

== ENCOUNTER → 2021-01-14 10:05 | Outpatient (BNVA) | payer MEDICARE, SELFPAY | PROVIDERS: Visit Provider Orthopaedic Surgery | DX: Z96.652 Presence of left artificial knee joint (principal) | CPT/HCPCS: 73560; 73565; 99212; Q3014 ==

== ENCOUNTER → 2021-01-16 11:54 | Outpatient (BNVA) | payer MEDICARE, SELFPAY | PROVIDERS: PCP Internal Medicine; Visit Provider Internal Medicine | DX: I26.99 Other pulmonary embolism without acute cor pulmonale (principal); Z51.81 Encounter for therapeutic drug level monitoring; Z79.01 Long term (current) use of anticoagulants | CPT/HCPCS: Q3014 ==

== ENCOUNTER → 2021-01-19 11:36 | Outpatient (BNVA) | payer MEDICARE, SELFPAY | PROVIDERS: PCP Internal Medicine; Visit Provider Internal Medicine | DX: I26.99 Other pulmonary embolism without acute cor pulmonale (principal); Z51.81 Encounter for therapeutic drug level monitoring; Z79.01 Long term (current) use of anticoagulants | CPT/HCPCS: Q3014 ==

== ENCOUNTER → 2021-01-26 15:39 | Outpatient (BNVA) | payer MEDICARE, SELFPAY | PROVIDERS: PCP Internal Medicine; Visit Provider Internal Medicine | DX: I26.99 Other pulmonary embolism without acute cor pulmonale (principal); Z79.01 Long term (current) use of anticoagulants; Z51.81 Encounter for therapeutic drug level monitoring | CPT/HCPCS: Q3014 ==

== ENCOUNTER → 2021-01-29 14:00 | Outpatient (BNVA) | payer MEDICARE, SELFPAY | PROVIDERS: PCP Internal Medicine; Visit Provider Internal Medicine | DX: I26.99 Other pulmonary embolism without acute cor pulmonale (principal); Z79.01 Long term (current) use of anticoagulants; Z51.81 Encounter for therapeutic drug level monitoring | CPT/HCPCS: Q3014 ==

== ENCOUNTER → 2021-02-02 10:17 | Outpatient (BNVA) | payer MEDICARE, SELFPAY | PROVIDERS: PCP Internal Medicine; Visit Provider Internal Medicine | DX: I26.99 Other pulmonary embolism without acute cor pulmonale (principal); Z79.01 Long term (current) use of anticoagulants; Z51.81 Encounter for therapeutic drug level monitoring | CPT/HCPCS: 85610; 99212 ==

== ENCOUNTER → 2021-02-06 15:04 | Outpatient (BNVA) | payer MEDICARE, SELFPAY | PROVIDERS: PCP Internal Medicine; Visit Provider Internal Medicine | DX: I26.99 Other pulmonary embolism without acute cor pulmonale (principal); Z79.01 Long term (current) use of anticoagulants; Z51.81 Encounter for therapeutic drug level monitoring | CPT/HCPCS: Q3014 ==

== ENCOUNTER → 2021-02-10 13:50 | Outpatient (BNVA) | payer MEDICARE, SELFPAY | PROVIDERS: PCP Internal Medicine; Visit Provider Internal Medicine | DX: I26.99 Other pulmonary embolism without acute cor pulmonale (principal); Z79.01 Long term (current) use of anticoagulants; Z51.81 Encounter for therapeutic drug level monitoring | CPT/HCPCS: Q3014 ==

== ENCOUNTER → 2021-02-16 15:40 | Outpatient (BNVA) | payer MEDICARE, SELFPAY | PROVIDERS: PCP Internal Medicine; Visit Provider Internal Medicine | DX: I26.99 Other pulmonary embolism without acute cor pulmonale (principal); Z79.01 Long term (current) use of anticoagulants; Z51.81 Encounter for therapeutic drug level monitoring | CPT/HCPCS: Q3014 ==

== ENCOUNTER → 2021-02-19 13:40 | Outpatient (BNVA) | payer MEDICARE, SELFPAY | PROVIDERS: PCP Internal Medicine; Visit Provider Internal Medicine | DX: Z79.01 Long term (current) use of anticoagulants (principal) | CPT/HCPCS: Q3014 ==

== ENCOUNTER → 2021-02-25 11:43 | Outpatient (BNVA) | payer MEDICARE, SELFPAY | PROVIDERS: PCP Internal Medicine; Visit Provider Internal Medicine | DX: Z51.81 Encounter for therapeutic drug level monitoring (principal) | CPT/HCPCS: Q3014 ==

== ENCOUNTER → 2021-03-04 13:24 | Outpatient (BNVA) | payer MEDICARE, SELFPAY | PROVIDERS: PCP Internal Medicine; Visit Provider Internal Medicine | DX: I26.99 Other pulmonary embolism without acute cor pulmonale (principal) | CPT/HCPCS: Q3014 ==

== ENCOUNTER → 2021-03-11 14:17 | Outpatient (BNVA) | payer MEDICARE, SELFPAY | PROVIDERS: Visit Provider Internal Medicine | DX: I26.99 Other pulmonary embolism without acute cor pulmonale (principal) | CPT/HCPCS: Q3014 ==

== ENCOUNTER → 2021-03-18 11:10 | Outpatient (BNVA) | payer MEDICARE, SELFPAY | PROVIDERS: Visit Provider Internal Medicine | DX: Z31.89 Encounter for other procreative management (principal) | CPT/HCPCS: Q3014 ==

== ENCOUNTER 2021-03-19 18:26 | Emergency (ER) | payer MEDICARE, SELFPAY ==
--- NOTE | ~2021-03-19 | CT_ITS ---
EXAMINATION: CT HEAD WITHOUT CONTRAST CLINICAL INFORMATION: Altered mental status COMPARISON: 11/06/2020 TECHNIQUE: Contiguous axial imaging was performed from the skull base to vertex without intravenous contrast. This CT examination was performed using dose optimization techniques as appropriate, variously including the following: * Automated exposure control * Adjustment of mA and/or kV according to patient size (this includes techniques or standardized protocols for targeted exams where dose is matched to indication/reason for exam; i.e. extremities or head) Use of iterative reconstruction technique DLP: 602 mGy-cm. FINDINGS: There is no evidence of acute intracranial hemorrhage or territorial infarction. No abnormal mass effect or midline shift is seen. Carias to white matter differentiation is well preserved. No extra-axial fluid collections are identified. No hydrocephalus. Proportional prominence of the ventricles and sulcal spaces is consistent with mild volume loss. Patchy periventricular and deep white matter hypoattenuation is consistent with mild small vessel ischemic changes. Prominent Virchow-Enmanuel space inferior to the right basal ganglia. The osseous structures and soft tissues are normal. The mastoid air cells and visualized portions of the paranasal sinuses are well aerated. CT/CT head/brain wo con IMPRESSION: No acute intracranial pathology. Volume loss with small vessel ischemic change.
--- NOTE | ~2021-03-19 | XR_ITS ---
EXAMINATION: XR CHEST CLINICAL INFORMATION: Cough COMPARISON: Previous chest x-ray most recent October 2019 TECHNIQUE: Frontal view of the chest was obtained. FINDINGS: The cardiac and mediastinal contours are normal. There are increased peripheral interstitial markings suggestive of interstitial lung disease. There are 2 nodules in the left mid lung that appear unchanged from previous exams, largest measuring 3 x 5 mm. The lungs are otherwise clear. There is no pleural effusion or pneumothorax. There is curvature of the thoracic spine to the right and degenerative changes. XR/XR chest 1V IMPRESSION: Increased interstitial markings suggestive of interstitial lung disease. Stable small left pulmonary nodules.
[2021-03-19 18:41] VITALS: BP 136/66; BP 136/79; PULSE 78; RESP 18; TEMP 36.9; O2SAT 98; O2SAT 99; BMI 22.3
[2021-03-19 18:52] VITALS: BP 136/66; PULSE 79; RESP 18; TEMP 36.9; O2SAT 98
--- NOTE | 2021-03-19 18:56 | PC.NURSE ---
Pt alert, oriented to person and place, neuros intact, VSS, LSCTA denies pain. Pt on last day of Doxycycline for uti, increased confusion this morning, worsened throughout the day. Pt has chronic uti and hx of sepsis. ED provider at bedside.
--- NOTE | 2021-03-19 19:09 | ECG_ITS ---
Test Reason : CHEST PAIN Blood Pressure : / mmHG Vent. Rate : 083 BPM Atrial Rate : 083 BPM P-R Int : 162 ms QRS Dur : 096 ms QT Int : 422 ms P-R-T Axes : 053 -02 036 degrees QTc Int : 495 ms Normal sinus rhythm Prolonged QT Abnormal ECG When compared with ECG of 06-NOV-2020 12:48, No significant change was found Referred By: Ani Ahuja Electronically Signed By:WESTON AMARO
--- NOTE | 2021-03-19 19:12 | ED.AMS ---
HPI - Altered Mental Status General Chief Complaint: Altered Mental Status Stated Complaint: AMS ?UTI Time Seen by Provider: 03/19/21 18:57 History of Present Illness HPI narrative: Patient is a 80-year-old female presented today with having altered mental status as per family. Patient denies any fever chills. No coughing or congestion or upper respiratory symptoms. Patient denies any urinary symptoms. Had her coronavirus vaccine over 2 weeks ago. Patient states that her father might have called her in because of change in mental status. However patient is 80 years old. Patient denies any nausea no vomiting. No head injury. Has a history of pulmonary emboli. And is on Coumadin. No trauma. No chest pain. No focal weakness. Patient is from home. Denies any alcohol use. Related Data Home Medications Medication Instructions Recorded Confirmed famotidine 20 mg tablet 40 mg PO BID tab 09/11/20 03/11/21 Myrbetriq 50 mg PO BEDTIME 10/06/20 03/11/21 folic acid 1 mg PO DAILY 10/06/20 03/11/21 gabapentin 300 mg PO DAILY 10/06/20 03/11/21 warfarin 2 mg PO SUTUTHSA@1800 10/06/20 03/18/21 warfarin 4 mg PO MOWEFR@1800 10/06/20 03/18/21 magnesium oxide 800 mg PO BID tab 02/02/21 03/11/21 metoprolol tartrate 25 mg tablet 12.5 mg PO BID tab 02/24/21 03/11/21 Previous Rx's Medication Instructions Recorded doxycycline hyclate 100 mg tablet 100 mg PO BID #14 tab 03/13/21 Allergies Allergy/AdvReac Type Severity Reaction Status Date / Time cortisone [Cortisone] Allergy Mild PT STATES Verified 03/18/21 11:11 IT COULD AFFECT HS TB CYSTALS IN,LUNG prochlorperazine Allergy Mild LEG Verified 03/18/21 11:11 [From Compazine] NUMBNESS hydrochlorothiazide Allergy Unknown RASH Verified 03/18/21 11:11 levofloxacin [Levaquin] Allergy Unknown Wakefulness, Verified 03/18/21 11:11 nausea, shaking Sulfa (Sulfonamide AdvReac Intermediate rash Verified 03/18/21 11:11 Antibiotics) codeine AdvReac Unknown NAUSEA/VOMI Verified 03/18/21 11:11 TING chocolate Allergy Unknown severe Uncoded 10/26/20 15:35 headaches/vomiting Review of Systems Review of Systems: Constitutional: No Weight loss, No Fever, No Chills, No Night Sweats, No Fatigue, No Malaise ENT/Mouth: No Hearing loss, No Ear Pain, No Nasal Congestion, No Sinus Pain, No Hoarseness, No sore throat, No Rhinorrhea, No Swallowing Difficulty Eyes: No Eye Pain, No Swelling, No Redness, No Foreign Body, No Discharge, No Vision Changes Cardiovascular: No Chest Pain, No SOB, No Dyspnea on Exertion, No Orthopnea, No Edema, No Palpitations Respiratory: No Cough, No Sputum, No Wheezing, No Smoke Exposure, No Dyspnea Gastrointestinal: No Nausea, No Vomiting, No Diarrhea, No Constipation, No abdominal Pain, No Hematochezia, No Melena Genitourinary: no irregular bleeding, No Dysuria, No Urinary Frequency, No Hematuria, No Urinary Incontinence, No Urgency, No Flank Pain, No Urinary Flow Changes, No Hesitancy Musculoskeletal: No joint pain, No Myalgias, No Joint Swelling Skin: No Skin Lesions, No rash Neuro: No Weakness, No Numbness, No Paresthesias, No Loss of Consciousness, No Dizziness, No Headache Psych: No Anxiety/Panic, No Depression, No SI/HI/AH/VH, No Social Issues, Heme/Lymph: No Bruising, No Bleeding,No Lymphadenopathy Endocrine: No Polyuria, No Polydipsia, No Temperature Intolerance PMFSH Past Medical History Medical History B12 deficiency Breast cancer Fatty liver, alcoholic GERD (gastroesophageal reflux disease) History of alcohol use History of pulmonary embolism History of right breast cancer HTN (hypertension) Hx of deep venous thrombosis Hx of hypercalcemia Hx of metabolic acidosis Hx of tuberculosis Hypomagnesemia Impaired fasting glucose Irritable bowel syndrome Osteoarthritis of left knee Osteoporosis Peripheral neuropathy Pernicious anemia Thrombocytopenia Surgical History H/O right mastectomy History of appendectomy History of arthroplasty of left knee History of cataract surgery History of cystoscopy History of esophagogastroduodenoscopy (EGD) History of evacuation of hematoma History of knee replacement procedure of right knee History of left knee surgery History of lumpectomy of right breast History of tonsillectomy Hx of adenoidectomy Hx of colonoscopy S/P SASHA-BSO (total abdominal hysterectomy and bilateral salpingo-oophorectomy) Family History Family History Father No problems noted. Mother No problems noted. Social History Social History Household Members: Spouse Housing: House Are you a primary lawn care technician to a significant other at home: No Do you presently have visiting nurse or other home services: Yes (Physical therapy) Alcohol intake: current Alcohol intake frequency: holidays/special occasions only Alcohol type: wine Patient Tobacco Use Status: Never used Tobacco Use of substances other than those prescribed or required for medical reasons: No Advance Directives: No Advance Directives Information Provided: No Advance Directives Date on File: 09/11/20 service: No Current occupational status: retired Physical Exam Vital Signs: Vital Signs: Last Vital Signs Temp 97.7 F 03/19/21 20:57 Pulse 79 03/19/21 20:57 Resp 17 03/19/21 20:57 BP 132/72 03/19/21 20:57 Pulse Ox 98 03/19/21 20:57 Body Mass Index 22.3 Appearance: Alert. Oriented X3. No acute distress. Eyes: Pupils equal, round and reactive to light. ENT: Pharynx normal. Neck: Normal inspection. Neck supple. No lymph nodes noted. No crepitus CVS: Normal heart rate and rhythm. Pulses normal. Normal S1 and S2 Respiratory: No respiratory distress. Breath sounds normal. No Wheezing. No rales Abdomen: Soft and nontender. No rigidity. No distention. good BS x4 Skin: Skin warm and dry. Normal skin color. Normal skin turgor. Extremities: No lower extremity edema. Neurovascular intact to all extremities. No Lacerations. No Rash Neuro: Oriented X 3. No motor deficit. No sensory deficit. Moving all extermities. No slurred speech MDM - Altered Mental Status MDM Narrative Medical decision making narrative: Patient well-appearing no distress. Awake alert oriented to self place and time. However patient keeps thinking that her father call her in to the emergency department. In fact it is her .. There is fact was verify with the granddaughter. Patient's electrolytes showed no abnormality. Patient's white count is normal. Patient's lactate is normal. Patient urine showed no evidence of infection. Patient's chest x-ray showed no evidence of pneumonia. Patient CT scan of the head was grossly negative for any evidence of bleeding. Had previous thyroid test done that was negative. Will repeat again. Patient otherwise well. Discussed with granddaughter. [place] patient is going to be unsafe to be at home. Will consult correctional counselor/case manager. Will get physical therapy evaluation. Will get care team involved. Finding discussed with family. Lab Data Result diagrams: 03/19/21 20:42 03/19/21 21:55 Labs: Lab Results 03/19/21 03/19/21 03/19/21 Range/Units 20:42 20:42 20:42 WBC 6.8 (4.8-10.8) X10*3/uL RBC 3.68 L (4.20-5.50) X10*6/uL Hgb 12.0 (12.0-16.0) g/dl Hct 36.3 L (37-47) % MCV 98.6 H (80-98) fL MCH 32.6 (27.0-33.0) pg MCHC 33.1 (31.0-35.0) g/dl RDW 14.9 (11.0-16.0) % Plt Count 159 L (160-400) X10*3/uL MPV 10.3 (9.4-12.3) fL Immature Gran % (Auto) 0.6 H (0.0-0.4) % Neut % (Auto) 59.1 (45-73) % Lymph % (Auto) 21.8 (20-40) % [place] % (Auto) 16.0 H (2-11) % Eos % (Auto) 1.6 (0-4) % Baso % (Auto) 0.9 (0-2) % Lymph # (Auto) 1.5 (1.2-4.9) X10*3/uL [place] # (Auto) 1.1 (0.1-1.2) X10*3/uL Eos # (Auto) 0.1 (0.0-0.4) X10*3/uL Baso # (Auto) 0.1 (0.0-0.2) X10*3/uL Abs Immat Gran (auto) 0.04 H (0.00-0.03) X10*3/uL Absolute Neuts (auto) 4.0 (2.0-8.3) X10*3/uL Absolute Nucleated RBC 0.000 (0.0-0.012) X10*3/uL Nucleated RBC % (auto) 0.0 (0.0-0.2) /100WBC Hold Blue Top SEE NOTE Sodium (135-145) mmol/L Potassium (3.3-5.1) mmol/L Chloride (96-108) mmol/L Carbon Dioxide (22-29) mmol/L Anion Gap (12-20) BUN (9-16) mg/dL Creatinine (0.5-1.4) mg/dL Estim Creat Clear Calc Estimated GFR POC Glucose (60-115) mg/dL Random Glucose (60-115) mg/dL Lactic Acid 1.6 (0.5-2.0) mmol/L Calcium (8.4-10.2) mg/dL Magnesium (1.6-2.6) mg/dL Ammonia (13-55) umol/L Urine Color Urine Appearance Urine pH (5.0-8.0) Ur Specific [place] (1.005-1.025) Urine Protein (NEG-TRACE) MG/DL Urine Glucose (UA) (NEG) MG/DL Urine Ketones (NEG) MG/DL Urine Blood (NEG) Urine Nitrite (NEG) Ur Leukocyte Esterase (NEG) Urine RBC (0) /HPF Urine WBC (0-4) /HPF Ur Squamous Epith Cells /LPF Urine Bacteria /LPF Urine Mucus /LPF Urine Opiates Screen (Not Detect) Ur Barbiturates Screen (Not Detect) Ur Phencyclidine Scrn (Not Detect) Ur Amphetamines Screen (Not Detect) U Benzodiazepines Scrn (Not Detect) Urine Cocaine Screen (Not Detect) U Marijuana (THC) Screen (Not Detect) Ethyl Alcohol mg/dL COVID-19 ([facility]) (Negative) COVID-19 Clin Com 03/19/21 03/19/21 03/19/21 Range/Units 20:42 20:42 20:42 WBC (4.8-10.8) X10*3/uL RBC (4.20-5.50) X10*6/uL Hgb (12.0-16.0) g/dl Hct (37-47) % MCV (80-98) fL MCH (27.0-33.0) pg MCHC (31.0-35.0) g/dl RDW (11.0-16.0) % Plt Count (160-400) X10*3/uL MPV (9.4-12.3) fL Immature Gran % (Auto) (0.0-0.4) % Neut % (Auto) (45-73) % Lymph % (Auto) (20-40) % [place] % (Auto) (2-11) % Eos % (Auto) (0-4) % Baso % (Auto) (0-2) % Lymph # (Auto) (1.2-4.9) X10*3/uL [place] # (Auto) (0.1-1.2) X10*3/uL Eos # (Auto) (0.0-0.4) X10*3/uL Baso # (Auto) (0.0-0.2) X10*3/uL Abs Immat Gran (auto) (0.00-0.03) X10*3/uL Absolute Neuts (auto) (2.0-8.3) X10*3/uL Absolute Nucleated RBC (0.0-0.012) X10*3/uL Nucleated RBC % (auto) (0.0-0.2) /100WBC Hold Blue Top Sodium (135-145) mmol/L Potassium (3.3-5.1) mmol/L Chloride (96-108) mmol/L Carbon Dioxide (22-29) mmol/L Anion Gap (12-20) BUN (9-16) mg/dL Creatinine (0.5-1.4) mg/dL Estim Creat Clear Calc Estimated GFR POC Glucose (60-115) mg/dL Random Glucose (60-115) mg/dL Lactic Acid (0.5-2.0) mmol/L Calcium (8.4-10.2) mg/dL Magnesium (1.6-2.6) mg/dL Ammonia 38 (13-55) umol/L Urine Color Urine Appearance Urine pH (5.0-8.0) Ur Specific [place] (1.005-1.025) Urine Protein (NEG-TRACE) MG/DL Urine Glucose (UA) (NEG) MG/DL Urine Ketones (NEG) MG/DL Urine Blood (NEG) Urine Nitrite (NEG) Ur Leukocyte Esterase (NEG) Urine RBC (0) /HPF Urine WBC (0-4) /HPF Ur Squamous Epith Cells /LPF Urine Bacteria /LPF Urine Mucus /LPF Urine Opiates Screen Not Detected (Not Detect) Ur Barbiturates Screen Not Detected (Not Detect) Ur Phencyclidine Scrn Not Detected (Not Detect) Ur Amphetamines Screen Not Detected (Not Detect) U Benzodiazepines Scrn POSITIVE H (Not Detect) Urine Cocaine Screen Not Detected (Not Detect) U Marijuana (THC) Screen Not Detected (Not Detect) Ethyl Alcohol mg/dL COVID-19 ([facility]Z) Negative (Negative) COVID-19 Clin Com See Note 03/19/21 03/19/21 03/19/21 Range/Units 20:42 21:02 21:55 WBC (4.8-10.8) X10*3/uL RBC (4.20-5.50) X10*6/uL Hgb (12.0-16.0) g/dl Hct (37-47) % MCV (80-98) fL MCH (27.0-33.0) pg MCHC (31.0-35.0) g/dl RDW (11.0-16.0) % Plt Count (160-400) X10*3/uL MPV (9.4-12.3) fL Immature Gran % (Auto) (0.0-0.4) % Neut % (Auto) (45-73) % Lymph % (Auto) (20-40) % [place] % (Auto) (2-11) % Eos % (Auto) (0-4) % Baso % (Auto) (0-2) % Lymph # (Auto) (1.2-4.9) X10*3/uL [place] # (Auto) (0.1-1.2) X10*3/uL Eos # (Auto) (0.0-0.4) X10*3/uL Baso # (Auto) (0.0-0.2) X10*3/uL Abs Immat Gran (auto) (0.00-0.03) X10*3/uL Absolute Neuts (auto) (2.0-8.3) X10*3/uL Absolute Nucleated RBC (0.0-0.012) X10*3/uL Nucleated RBC % (auto) (0.0-0.2) /100WBC Hold Blue Top Sodium 138 (135-145) mmol/L Potassium 4.3 (3.3-5.1) mmol/L Chloride 103 (96-108) mmol/L Carbon Dioxide 25 (22-29) mmol/L Anion Gap 14 (12-20) BUN 15 (9-16) mg/dL Creatinine 0.95 (0.5-1.4) mg/dL Estim Creat Clear Calc 42.1 Estimated GFR 57 POC Glucose 90 (60-115) mg/dL Random Glucose 96 (60-115) mg/dL Lactic Acid (0.5-2.0) mmol/L Calcium 8.9 (8.4-10.2) mg/dL Magnesium 1.9 (1.6-2.6) mg/dL Ammonia (13-55) umol/L Urine Color YELLOW Urine Appearance CLEAR Urine pH 6.0 (5.0-8.0) Ur Specific [place] <= 1.005 (1.005-1.025) Urine Protein NEG (NEG-TRACE) MG/DL Urine Glucose (UA) NEG (NEG) MG/DL Urine Ketones NEG (NEG) MG/DL Urine Blood NEG (NEG) Urine Nitrite NEG (NEG) Ur Leukocyte Esterase NEG (NEG) Urine RBC 0 (0) /HPF Urine WBC 0 (0-4) /HPF Ur Squamous Epith Cells 2+ /LPF Urine Bacteria 1+ /LPF Urine Mucus 2+ /LPF Urine Opiates Screen (Not Detect) Ur Barbiturates Screen (Not Detect) Ur Phencyclidine Scrn (Not Detect) Ur Amphetamines Screen (Not Detect) U Benzodiazepines Scrn (Not Detect) Urine Cocaine Screen (Not Detect) U Marijuana (THC) Screen (Not Detect) Ethyl Alcohol mg/dL COVID-19 ([facility]) (Negative) COVID-19 Clin Com 03/19/21 Range/Units 21:55 WBC (4.8-10.8) X10*3/uL RBC (4.20-5.50) X10*6/uL Hgb (12.0-16.0) g/dl Hct (37-47) % MCV (80-98) fL MCH (27.0-33.0) pg MCHC (31.0-35.0) g/dl RDW (11.0-16.0) % Plt Count (160-400) X10*3/uL MPV (9.4-12.3) fL Immature Gran % (Auto) (0.0-0.4) % Neut % (Auto) (45-73) % Lymph % (Auto) (20-40) % [place] % (Auto) (2-11) % Eos % (Auto) (0-4) % Baso % (Auto) (0-2) % Lymph # (Auto) (1.2-4.9) X10*3/uL [place] # (Auto) (0.1-1.2) X10*3/uL Eos # (Auto) (0.0-0.4) X10*3/uL Baso # (Auto) (0.0-0.2) X10*3/uL Abs Immat Gran (auto) (0.00-0.03) X10*3/uL Absolute Neuts (auto) (2.0-8.3) X10*3/uL Absolute Nucleated RBC (0.0-0.012) X10*3/uL Nucleated RBC % (auto) (0.0-0.2) /100WBC Hold Blue Top Sodium (135-145) mmol/L Potassium (3.3-5.1) mmol/L Chloride (96-108) mmol/L Carbon Dioxide (22-29) mmol/L Anion Gap (12-20) BUN (9-16) mg/dL Creatinine (0.5-1.4) mg/dL Estim Creat Clear Calc Estimated GFR POC Glucose (60-115) mg/dL Random Glucose (60-115) mg/dL Lactic Acid (0.5-2.0) mmol/L Calcium (8.4-10.2) mg/dL Magnesium (1.6-2.6) mg/dL Ammonia (13-55) umol/L Urine Color Urine Appearance Urine pH (5.0-8.0) Ur Specific [place] (1.005-1.025) Urine Protein (NEG-TRACE) MG/DL Urine Glucose (UA) (NEG) MG/DL Urine Ketones (NEG) MG/DL Urine Blood (NEG) Urine Nitrite (NEG) Ur Leukocyte Esterase (NEG) Urine RBC (0) /HPF Urine WBC (0-4) /HPF Ur Squamous Epith Cells /LPF Urine Bacteria /LPF Urine Mucus /LPF Urine Opiates Screen (Not Detect) Ur Barbiturates Screen (Not Detect) Ur Phencyclidine Scrn (Not Detect) Ur Amphetamines Screen (Not Detect) U Benzodiazepines Scrn (Not Detect) Urine Cocaine Screen (Not Detect) U Marijuana (THC) Screen (Not Detect) Ethyl Alcohol < 10 mg/dL COVID-19 ([facility]) (Negative) COVID-19 Clin Com Discharge Plan Discharge Prescriptions: No Action metoprolol tartrate 25 mg tablet 12.5 mg PO BID RF: 0 doxycycline hyclate 100 mg tablet 100 mg PO BID Qty: 14 RF: 0 warfarin 2 mg Tablet 2 mg PO SUTUTHSA@1800 RF: 0 warfarin 2 mg Tablet 4 mg PO MOWEFR@1800 RF: 0 Hold Instructions: using 2 mg tab folic acid 1 mg Tablet 1 mg PO DAILY RF: 0 gabapentin 300 mg capsule 300 mg PO DAILY RF: 0 Myrbetriq 50 mg tablet extended release 24 hr 50 mg PO BEDTIME RF: 0 magnesium oxide 400 mg magnesium tablet 800 mg PO BID RF: 0 famotidine 20 mg tablet 40 mg PO BID RF: 0
--- NOTE | 2021-03-19 20:30 | PC.NURSE ---
PT TO ROOM #5, PT CHANGED INTO [place] AND AT BEDSIDE FOR EVAL. PT REQUESTING COMMODE AT BEDSIDE. PT UP WITH ASSISTANCES TO BEDSIDE COMMODE. URINE OBTAINED TO LAB FOR EVAL. PT A&OX3, SKIN WARM, DRY. RESPIRATIONS EASY, N/L. PT REQUESTING BLANKET AND WAS GIVEN A WARM BLANKET. PT REASSURED AND EXPLAINED EXACTLY WHAT WOULD BE HAPPENING AT THIS TIME. PT VERBALIZED U/S. WILL CONTINUE TO MONITOR PT.
--- NOTE | 2021-03-19 20:35 | PC.NURSE ---
IV PLACED TO RIGHT HAND, LABS DRAWN ALONG WITH BC. PT DENIES ANY COMPLAINTS AT THIS TIME.
--- NOTE | 2021-03-19 20:45 | PC.NURSE ---
PT DENIES ANY COMPLAINTS. EKG OBTAINED TO MD FOR EVAL. PT REMAINS ALERT AND LAUGHING WITH STAFF. RESPIRATIONS IS N/L. PT DENIES ANY COMPLIANTS/PAIN AT THIS TIME AND WILL CONTINUE TO MONITOR PT'S REQUESTS.
[2021-03-19 20:51] LABS: MANUAL DIFF FLAG NO
[2021-03-19 20:53] LABS: Basophils Absolute Auto 0.1 X10*3/uL (0.0-0.2); Basophils Percent Auto 0.9 % (0-2); Eosinophils Absolute Auto 0.1 X10*3/uL (0.0-0.4); Eosinophils Percent Auto 1.6 % (0-4); Hematocrit 36.3 % (37-47); Imm Gran Abs Auto 0.04 X10*3/uL (0.00-0.03); Imm Gran Pct Auto 0.6 % (0.0-0.4); Lymphocytes Absolute Auto 1.5 X10*3/uL (1.2-4.9); Lymphocytes Percent Auto 21.8 % (20-40); Mean Corpuscular HGB Conc 33.1 g/dl (31.0-35.0); Mean Corpuscular Hemoglobin 32.6 pg (27.0-33.0); Mean Corpuscular Volume 98.6 fL (80-98); Mean Platelet Volume 10.3 fL (9.4-12.3); Monocytes Absolute Auto 1.1 X10*3/uL (0.1-1.2); Neutrophils Percent Auto 59.1 % (45-73); Platelet Count 159 X10*3/uL (160-400); Red Blood Count 3.68 X10*6/uL (4.20-5.50); Red Cell Distribution Width 14.9 % (11.0-16.0); White Blood Count 6.8 X10*3/uL (4.8-10.8)
[2021-03-19 20:57] VITALS: BP 132/72; PULSE 79; RESP 17; TEMP 36.5; O2SAT 98
[2021-03-19 21:08] LABS: Glucose, Whole Blood 90 mg/dL (60-115)
[2021-03-19 21:21] LABS: Ammonia 38 umol/L (13-55)
[2021-03-19 21:22] LABS: Lactic Acid 1.6 mmol/L (0.5-2.0)
[2021-03-19 21:25] LABS: COVID-19 Test Negative (Negative)
--- NOTE | 2021-03-19 21:26 | PC.NURSE ---
PT GIVEN THE REMOTE FOR TV. PT DENIES ANY COMPLAINTS AND AWAITING FOR PENDING LAB RESULTS. WILL CONTINUE TO MONITOR PT.
[2021-03-19 21:27] LABS: Amphetamine Screen Urine Not Detected (Not Detect); Barbiturates, Urine Not Detected (Not Detect); Benzodiazepines Screen Urine POSITIVE (Not Detect); Cannabinoid Screen Urine Not Detected (Not Detect); Cocaine Screen Urine Not Detected (Not Detect); Opiate Screen Urine Not Detected (Not Detect); Phencyclidine Screen Urine Not Detected (Not Detect)
[2021-03-19 21:43] LABS: Appearance Urine CLEAR; Color Urine YELLOW; Glucose Urine UA NEG (NEG); Leukocyte Esterase Urine NEG (NEG); Nitrite Urine NEG (NEG); Specific Gravity - Urine <= 1.005 (1.005-1.025); Urine Blood NEG (NEG); Urine Ketones NEG (NEG); Urine Protein NEG (NEG-TRACE)
[2021-03-19 21:51] LABS: RBC Urine 0 /HPF (0); Squamous Epithelial Cell Urine 2+ /LPF; WBC Urine 0 /HPF (0-4)
[2021-03-19 21:52] LABS: Bacteria Urine 1+ /LPF; Mucus Urine 2+ /LPF
[2021-03-19 22:00] VITALS: BP 130/70; PULSE 80; RESP 18; TEMP 36.6; O2SAT 98
--- NOTE | 2021-03-19 22:00 | PC.NURSE ---
PT REQUESTING TO AMBULATE TO RESTROOM. COMMODE AT BEDSIDE. PT UP TO COMMODE WITH ASSISTANCE W/O DIFFICULTY. NO CHG IN PT'S CONDITION. VS OBTAINED. PT DENIES ANY COMPLAINTS OR PAIN AT THIS TIME. REQUESTING TO CALL FAMILY. GRANDDAUGHTER LETHA'S NUMBER [phone]. WILL CONTINUE TO MONITOR PT.
[2021-03-19 22:28] LABS: Anion Gap 14 (12-20); Blood Urea Nitrogen 15 mg/dL (9-16); Calcium 8.9 mg/dL (8.4-10.2); Carbon Dioxide 25 mmol/L (22-29); Chloride 103 mmol/L (96-108); Creatinine Clr Calc Pharmacy 42.1; Estimated Glomerular Filt Rate 57; Glucose Random 96 mg/dL (60-115); Potassium 4.3 mmol/L (3.3-5.1); Sodium 138 mmol/L (135-145)
--- NOTE | 2021-03-19 22:30 | PC.NURSE ---
PT IS CONCERNED ABOUT CALLING HER AT HOME. PT IS SCARED HER DAD WILL ANSWER THE PHONE AND WILL LIE TO HER ABOUT WHERE HER IS. PT STATES MY FATHER WILL CALL HERE, DEMAND TO KNOW INFORMATION ABOUT ME, AND WILL NOT LET ME TALK TO MY . PT IS POSITIVE HER FATHER IS STILL ALIVE AND STAYING AT HER HOUSE. DR SHAH IS AWARE.
[2021-03-19 22:45] LABS: Ethanol < 10 mg/dL
--- NOTE | 2021-03-19 23:00 | PC.NURSE ---
DR SHAH IS ATTEMPTING TO CALL THE PT'S FAMILY AT PHONE NUMBER GIVEN BY GRANDDAUGHTER LETHA WITHOUT SUCCESS. WILL TRY AGAIN. PT AWARE.
--- NOTE | 2021-03-19 23:39 | PC.NURSE ---
ATTEMPTING TO CALL FAMILY AND NO ONE IS ANSWERING THE PHONE. LEFT MESSAGE FOR RETURN PHONE CALL.
--- NOTE | 2021-03-19 23:42 | PC.NURSE ---
IS CONVERSING WITH PT'S GRANDDAUGHTER LETHA REGARDING DISPO. NO CHG IN PT'S CONDITION. PT REMAINS ALERT AND AWARE OF SURROUNDINGS. RESPIRATIONS EASY, N/L. SKIN W/D. PT DENIES ANY PAIN OR COMPLAINTS. PT IS AWAKE AND WATCHING TV SHOW. WILL CONTINUE TO MONITOR PT.
[2021-03-20] VITALS: BP 132/74; PULSE 82; RESP 16
--- NOTE | 2021-03-20 00:19 | PC.NURSE ---
DR. SHAH CONVERSING WITH FAMILY ON PHONE.
[2021-03-20 00:37] LABS: Magnesium 1.9 mg/dL (1.6-2.6)
--- NOTE | 2021-03-20 01:00 | MHC.MBSS ---
PT IS REFUSING A HOSPITAL BED AND REQUESTING TO STAY IN THE [facility]RETCHER STATING IM COMFORTABLE HERE AND I DON'T WANT TO MOVE TO ANOTHER BED WILL CONTINUE TO MONITOR PT.
[2021-03-20 01:12] LABS: Thyroid Stimulating Hormone 1.89 uIU/mL (0.32-4.0)
[2021-03-20 02:00] VITALS: BP 128/76; PULSE 80; RESP 16; O2SAT 98
--- NOTE | 2021-03-20 02:49 | PC.NURSE ---
PT RESTING QUIETLY IN BED AT THIS TIME. PT DENIES ANY COMPLAINTS. WILL CONTINUE TO MONITOR PT. PT WILL BE STAYING OVERNIGHT FOR CASE MGT IN THE MORNING.
[2021-03-20 04:00] VITALS: BP 134/78; PULSE 86; RESP 16; TEMP 36.6; O2SAT 98
--- NOTE | 2021-03-20 04:30 | PC.NURSE ---
PT IS CONVERSING WITH NURSE ABOUT WHEN PT WAS GROWING UP IN [place] AND REMEMBERING CHILDHOOD STORIES IN DETAIL. PT REMAINS A&OX3, RESPIRATIONS N/L. PT DENIES COMPLAINTS OR PAIN. PT IS REFUSING TO GET MOVED INTO HOSPITAL BED AND REQUESTING TO STAY IN [facility]. WILL CONTINUE TO MONITOR PT.
--- NOTE | 2021-03-20 05:13 | PC.NURSE ---
PT UP TO RESTROOM. PT EATING A [employer] SANDWICH AND DRINKING WATER AND WATCHING THE NEWS ON TV. PT IS REFUSING HOSPITAL BED FOR COMFORT. PT REMAINS ALERT AND RESPIRATIONS EASY, N/L. SKIN W/D. WILL CONTINUE TO MONITOR PT.
--- NOTE | 2021-03-20 05:30 | PC.NURSE ---
PT IS REQUESTING THE PHONE TO TRY TO CALL HER WITHOUT SPEAKING TO HER FATHER. PT STATES MY FATHER WILL NOT LET ME TALK WITH MY . WILL CONTINUE TO MONITOR PT.
--- NOTE | 2021-03-20 06:54 | PC.NURSE ---
PT IS TRYING TO CALL HER HOME AND NO ONE IS ANSWERING THE PHONE. PT DENIES COMPLAINTS. NO CHG IN PT'S CONDITION.
[2021-03-20 07:16] VITALS: BP 144/58; PULSE 90; RESP 18; TEMP 36.7; O2SAT 98
--- NOTE | 2021-03-20 07:58 | PC.NURSE ---
REPORT TAKEN FROM LETHA CAMPOS. PATIENT AWAKE UPON EXAM. ALERT, ORIENTED TO PLACE, TIME, VAGUE TO SITUATION. PLEASANTLY CONFUSED AT TIMES, MAKES STATEMENTS THAT DONT QUIET MAKE SENSE. UP TO USE COMMODE, MINIMAL ASSIST FROM RN REQUIRED. BREAKFAST ORDERED. PHYSICAL THERAPY WORKING WITH PATIENT AT BEDSIDE AT THIS TIME. CALLED AND WAS GIVEN UPDATE, HE IS COMING IN THIS MOR ING TO BE WITH PATIENT.
--- NOTE | 2021-03-20 09:49 | PC.NURSE ---
spoke with Daughter, Haily. she requested psych consult related to concern that potassium and Calcium are high, though our labs did not show this. Haily also stated that she had a UTI in the past that caused some delirium and thought maybe she could have another UTI though our labs did not indicate UTI. Daughter was worried that this is not dementia and instead something else as it came on way too fast . Dr. José made aware consult put into care team. Haily Number: [phone].
--- NOTE | 2021-03-20 09:56 | PC.NURSE ---
spoke with patient and her regarding pt daughter (Masoud) calling and requesting a psych consult. patient informed this Rn that that is not her biological daughter and she is not able to make any decisions for her. Masoud called and spoke with Archana CAMPOS. Archana did not disclose labs, results or any medical information about patient, Masoud had known patient was here and confused and then began requesting further work ups. will relay this information to MD. patient is currently alert and oriented x 4.
[2021-03-20 11:27] LABS: Vitamin B12 363 pg/mL (200-900)
--- NOTE | 2021-03-20 11:27 | MHC.CARE ---
CARE Team meets with pt and to create a safety plan, should pt become confused/disoriented/AMS in the home in the future. CARE Team educates pt and on utilization of [facility] mobile crisis however, given the hx of delirium, pt and agree it would be better for her to be seen by a doctor first. They currently have [facility] services and are not interested in additional services at this time. CARE Team encourages pt and tpo seek medical attention if they observe a change in mental status, and to return to the ED when needed. They are both agreeable with this plan. CARE Team provides contatc info and encourages the pt and to reach out to the CARE Team anytime if they need additional information or support, which they agree to. CARE Team speaks with HERBIE and Mary Beth KIRBY regarding intervention provided.
--- NOTE | 2021-03-20 11:34 | MHC.CM.ED ---
Received case management consult overnight. Patient came to the ER overnight for AMS. Work up essentially negative. Patient has a history of cognitive impairment at times. Physical therapy eval completed. Home therapy is recommended. Met with patient and . They live together. Patient is already active with [facility] for SN and PT. [facility] aware of ER visit. HCP verified to be on file. PCP verified to be Dr Burnett. Patient received 2nd Covid vaccine in January. Patient's will transport her home. Patient, Mr Fox, Maureen CAMPOS and Mary Beth KIRBY aware. Continue to monitor for d/c needs.
== END 2021-03-20 11:22 | disposition home or self-care (01) ==
PROVIDERS: Emergency Provider Emergency Medicine Emergency Medical Services
DX: R41.82 Altered mental status, unspecified (principal); R05 Cough; Z20.822 Contact with and (suspected) exposure to COVID-19; Z79.899 Other long term (current) drug therapy
CPT/HCPCS: 36415; 70450; 71045; 80048; 80307; 81001; 82077; 82140; 82607; 82947; 83605; 83735; 84443; 85025; 87040; 87635; 93005; 97161; 99285

== ENCOUNTER → 2021-03-25 10:02 | Outpatient (BNVA) | payer MEDICARE, SELFPAY | PROVIDERS: Visit Provider Orthopaedic Surgery | DX: Z96.652 Presence of left artificial knee joint (principal) | CPT/HCPCS: 99212; Q3014 ==

== ENCOUNTER 2021-03-27 10:44 | Outpatient (REF) | payer MEDICARE, SELFPAY ==
[2021-03-27 11:24] LABS: MANUAL DIFF FLAG NO
[2021-03-27 11:25] LABS: Basophils Percent Auto 0.4 % (0-2); Eosinophils Percent Auto 0.4 % (0-4); Hematocrit 35.7 % (37-47); Hemoglobin 11.5 g/dl (12.0-16.0); Imm Gran Abs Auto 0.02 X10*3/uL (0.00-0.03); Imm Gran Pct Auto 0.3 % (0.0-0.4); Immature Retic Fraction 10.7 % (3.0-15.9); Lymphocytes Absolute Auto 1.3 X10*3/uL (1.2-4.9); Lymphocytes Percent Auto 18.8 % (20-40); Mean Corpuscular HGB Conc 32.2 g/dl (31.0-35.0); Mean Corpuscular Hemoglobin 32.2 pg (27.0-33.0); Mean Platelet Volume 10.2 fL (9.4-12.3); Monocytes Absolute Auto 0.9 X10*3/uL (0.1-1.2); Neutrophils Absolute Auto 4.8 X10*3/uL (2.0-8.3); Neutrophils Percent Auto 67.1 % (45-73); Platelet Count 161 X10*3/uL (160-400); Red Blood Count 3.57 X10*6/uL (4.20-5.50); Red Cell Distribution Width 15.4 % (11.0-16.0); Retic HGB Equivalent 37.1 pg (30.0-35.0); Reticulocyte Percent 1.9 % (0.5-1.8); Reticulocytes Absolute 0.068 X10*6/uL (0.026-0.095); White Blood Count 7.1 X10*3/uL (4.8-10.8)
[2021-03-27 11:39] LABS: Ammonia 22 umol/L (13-55)
[2021-03-27 11:48] LABS: Glucose Urine UA NEG (NEG); Leukocyte Esterase Urine 3+ (NEG); Nitrite Urine NEG (NEG); UACC Culture Trigger YES; Urine Blood 1+ (NEG); Urine Ketones NEG (NEG); Urine Protein NEG (NEG-TRACE)
[2021-03-27 11:51] LABS: Alanine Aminotransferase 9 U/L (0-31); Albumin Level 3.8 g/dL (3.5-5.0); Alkaline Phosphatase 98 U/L (39-117); Anion Gap 13 (12-20); Aspartate Amino Transferase 19 U/L (5-31); Bilirubin Total 0.6 mg/dL (0.0-1.0); Blood Urea Nitrogen 13 mg/dL (9-16); Calcium 9.2 mg/dL (8.4-10.2); Carbon Dioxide 29 mmol/L (22-29); Chloride 102 mmol/L (96-108); Estimated Glomerular Filt Rate 49; Glucose Random 97 mg/dL (60-115); Iron 121 mcg/dL (30-160); Magnesium 2.2 mg/dL (1.6-2.6); Percent Iron Saturation 48 % (15-50); Potassium 4.8 mmol/L (3.3-5.1); Sodium 139 mmol/L (135-145); Total Iron Binding Capacity 253 mcg/dL (228-428); Total Protein 7.5 g/dL (6.5-8.0); Unsaturated Iron Binding 132 ug/dL
[2021-03-27 11:58] LABS: Appearance Urine CLOUDY; Color Urine YELLOW
[2021-03-27 12:22] LABS: Free T4 (Free Thyroxine) 0.85 ng/dL (0.71-1.85); Thyroid Stimulating Hormone 1.24 uIU/mL (0.32-4.0)
[2021-03-27 12:42] LABS: Bacteria Urine 3+ /LPF; Squamous Epithelial Cell Urine 1+ /LPF; WBC Urine TNTC /HPF (0-4)
[2021-03-27 13:11] LABS: Folate > 20.0 ng/mL (> or = 4.0); Vitamin B12 301 pg/mL (200-900)
[2021-03-27 13:12] LABS: Ferritin 219 ng/mL (10-250)
== END 2021-03-27 10:45 | disposition home or self-care (01) ==
LOC: HO.LAB 10:44
PROVIDERS: PCP Internal Medicine; Visit Provider Internal Medicine
DX: R41.0 Disorientation, unspecified (principal)
CPT/HCPCS: 36415; 80053; 81001; 81003; 82140; 82607; 82728; 82746; 83540; 83735; 84439; 84443; 85025; 85045; 87086; 87088; 87186

== ENCOUNTER 2021-03-28 13:40 | Outpatient (REF) | payer MEDICARE, SELFPAY ==
[2021-03-30 14:37] LABS: CDIFF Ag Negative (Negative); CDIFF Internal ctrl Dots and bkg OK (V); CDiff Toxin Negative (Negative)
== END 2021-03-28 13:41 | disposition home or self-care (01) ==
LOC: HO.LNP 13:40
PROVIDERS: Visit Provider Internal Medicine
DX: C50.919 Malignant neoplasm of unspecified site of unspecified female breast (principal)
CPT/HCPCS: 87045; 87046; 87324; 87449; 89055

== ENCOUNTER → 2021-04-01 11:52 | Outpatient (BNVA) | payer MEDICARE, SELFPAY | PROVIDERS: PCP Internal Medicine; Visit Provider Internal Medicine | DX: I26.99 Other pulmonary embolism without acute cor pulmonale (principal); Z51.81 Encounter for therapeutic drug level monitoring; Z79.01 Long term (current) use of anticoagulants | CPT/HCPCS: 85610; 99211 ==

== ENCOUNTER 2021-04-04 11:07 | Inpatient (IN) | payer MEDICARE, SELFPAY ==
[2021-04-04] VITALS (12 sets, daily range): BP systolic 101–132; BP diastolic 48–81; PULSE 87–103; RESP 18; TEMP 36.5–36.6; O2SAT 98–100; BMI 24.1
--- NOTE | ~2021-04-04 | CT_ITS ---
EXAMINATION: CT CHEST, ABDOMEN AND PELVIS WITHOUT CONTRAST. CLINICAL INFORMATION: SOB, AMS lower abdominal pain with diarrhea. COMPARISON: Chest x-ray 03/19/2021 TECHNIQUE: 5 mm thin axial and reformatted 3 mm thin sagittal and coronal images of chest, abdomen and pelvis were obtained without contrast. DLP [id number] FINDINGS: Chest: The lungs are inflated with increase interstitial markings and subpleural thickening in both upper lobes and both lower lobes suggestive of chronic interstitial lung disease. No pulmonary nodule, consolidation or mass seen. The thyroid lobes are symmetrical and normal. Central trachea and the bronchi widely patent. Heart size is borderline. No pericardial effusion seen. There are coronary artery calcifications. The great vessels are normal caliber. Small shotty lymph nodes are seen in the pretracheal space. There is no pleural effusion or thickening. The axilla appears unremarkable. There is evidence of previous right mastectomy. Otherwise rest the chest wall is unremarkable. Bone windows reveal no lytic or sclerotic process. There is mild ventral bridging osteophytes mid and lower dorsal spine. Abdomen and pelvis: Visualized liver, spleen, pancreas and bilateral adrenal glands are unremarkable. There is radiopaque dependent gravel but no wall thickening. There are no radiopaque renal calculi or hydronephrosis. There is an extrarenal bilateral kidney pelvises. The abdominal aorta is atherosclerotic calcified without dilation. No retroperitoneal lymph nodes or mass seen. There is scattered stool and gas seen throughout the colon without any significant distention. The small bowel loops are normal caliber. There are multiple surgical bettina seen in the right pelvis from previous intervention. The urinary bladder is mildly distended but no wall thickening or enhancing mass seen. There is no free fluid. There is no adnexal mass. There is no evidence of abnormal pelvic lymph nodes are. Bone windows reveal moderate ventral spondylosis at L5-S1 disc level. CT/CT abdomen pelvis wo con IMPRESSION: Diffuse chronic interstitial lung disease and. No acute pneumonic consolidation seen. Evidence of previous right mastectomy. 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 I lateral extrarenal kidney pelvises without radiopaque urolith or hydronephrosis. No acute intra-abdominal process seen. Extensive postsurgical changes right pelvis.
--- NOTE | ~2021-04-04 | CT_ITS ---
EXAMINATION: CT ANGIOGRAM NECK WITH CONTRAST CT ANGIOGRAM BRAIN WITH CONTRAST CLINICAL INFORMATION: Slurred speech. Concern for stroke. COMPARISON: Head CT performed earlier today. TECHNIQUE: Test bolus sequences followed by intravenous administration 100 mL of Omnipaque 350. Helical imaging was performed in the axial plane from the thoracic inlet to the skull vertex. Delayed postcontrast imaging of the head was also performed. The data was processed at the histologist technologist workstation for generation of MIP sequences. Angled MIPs and volume rendered reformatted images were also generated at an offline 3D workstation. Stenoses are assessed in accordance with NASCET criteria unless otherwise indicated. This CT examination was performed using dose optimization techniques as appropriate, variously including the following: *Automated exposure control *Adjustment of mA and/or kV according to patient size (this includes techniques or standardized protocols for targeted exams where dose is matched to indication/reason for exam; i.e. extremities or head) *Use of iterative reconstruction technique DLP: 1474 mGy-cm FINDINGS: Head CT: There is no intracranial hemorrhage, large acute infarction, or mass lesion. The ventricles are normal in size and configuration without evidence of hydrocephalus. Hypoattenuation is seen in the cerebral white matter most compatible with chronic microangiopathy. A small chronic lacunar infarct is seen within the left basal ganglia. The ventricles are commensurate with the sulci. No abnormal enhancement is seen. The dural venous sinuses are normally opacified. The visualized paranasal sinuses and mastoid air cells are clear. Neck CTA: The aortic arch is patent. The common and internal carotid arteries are patent. Mild atheromatous changes are seen at the carotid bifurcations without significant stenosis. Both vertebral arteries are patent. Head CTA: No proximal vessel occlusion is seen. The vertebrobasilar system is patent. There is bilateral box office clerk. The internal carotid arteries are patent. The ACAs and MCAs are patent. No aneurysm is seen. Non-vascular findings: The cervical soft tissues are within normal limits. There is no consolidation within the upper lungs. Interlobular septal thickening is noted. The degree is seen within the esophagus. Degenerative changes are noted within the spine. CT/CT angio head neck stroke IMPRESSION: CT head: No intracranial hemorrhage or large acute infarction. CTA neck: No hemodynamically significant stenosis in the major arteries of the neck. CTA head: No large vessel occlusion or significant stenosis within the intracranial circulation.
--- NOTE | ~2021-04-04 | MR_ITS ---
MRI OF THE BRAIN WITHOUT IV CONTRAST INDICATION: Stroke symptoms. COMPARISON: CTA head and neck 04/05/2021. TECHNIQUE: Multiplanar multisequence MR imaging of the brain was obtained without IV contrast. FINDINGS: There is no hydrocephalus, extra-axial surface collection, or herniation. There is global cerebral volume loss and there is mild to moderate chronic microangiopathy. The major flow voids at the skull base are preserved. There is no acute infarct on diffusion-weighted imaging. There is no intracranial hemorrhage on the gradient recalled echo acquisition. The midline structures are normal. The cerebellar tonsils are normally positioned. The cerebellum and brainstem are normal. The craniocervical junction is normal. Osseous marrow signal intensity is homogenous. The visualized soft tissues are unremarkable. MR/MR head/brain wo con IMPRESSION: - No acute intracranial findings. No acute infarcts. - There is global cerebral volume loss and there is mild to moderate chronic microangiopathy.
--- NOTE | ~2021-04-04 | CT_ITS ---
EXAMINATION: CT HEAD WITHOUT CONTRAST CLINICAL INFORMATION: Slurred speech. Confusion. COMPARISON: CT of the head done on 01/17/2021. TECHNIQUE: Contiguous axial imaging was performed from the skull base to vertex without intravenous administration of contrast. This CT examination was performed using dose optimization techniques as appropriate, variously including the following: *Automated exposure control *Adjustment of mA and/or kV according to patient size (this includes techniques or standardized protocols for targeted exams where dose is matched to indication/reason for exam; i.e. extremities or head) *Use of iterative reconstruction technique DLP: 599.9 mGy-cm FINDINGS: There is no evidence of acute intracranial hemorrhage or territorial infarction. No abnormal mass effect or midline shift is seen. Carias to white matter differentiation is well preserved. No extra-axial fluid collections are identified. The ventricles are normal in size. Stable subcentimeter hypodensity is noted within the inferior part of the right basal ganglia, most consistent with prominent virchow naye space versus old lacunar infarction. Mild prominent extra-axial space is also noted around both frontal lobes, consistent with mild atrophy, similar to prior study. The osseous structures and soft tissues are normal. The mastoid air cells and visualized portions of the paranasal sinuses are well aerated. CT/CT head/brain wo con IMPRESSION: No acute intracranial pathology.
[2021-04-04 11:44] LABS: MANUAL DIFF FLAG NO
[2021-04-04 11:46] LABS: Basophils Absolute Auto 0.1 X10*3/uL (0.0-0.2); Basophils Percent Auto 0.6 % (0-2); Eosinophils Absolute Auto 0.1 X10*3/uL (0.0-0.4); Eosinophils Percent Auto 0.8 % (0-4); Hematocrit 34.4 % (37-47); Hemoglobin 11.3 g/dl (12.0-16.0); Imm Gran Abs Auto 0.04 X10*3/uL (0.00-0.03); Imm Gran Pct Auto 0.5 % (0.0-0.4); Lymphocytes Absolute Auto 1.3 X10*3/uL (1.2-4.9); Mean Corpuscular HGB Conc 32.8 g/dl (31.0-35.0); Mean Corpuscular Volume 97.5 fL (80-98); Mean Platelet Volume 10.5 fL (9.4-12.3); Monocytes Absolute Auto 1.4 X10*3/uL (0.1-1.2); Monocytes Percent Auto 18.2 % (2-11); Neutrophils Absolute Auto 4.9 X10*3/uL (2.0-8.3); Neutrophils Percent Auto 62.9 % (45-73); Platelet Count 137 X10*3/uL (160-400); Red Blood Count 3.53 X10*6/uL (4.20-5.50); Red Cell Distribution Width 15.1 % (11.0-16.0); White Blood Count 7.8 X10*3/uL (4.8-10.8)
[2021-04-04 11:52] LABS: INTERNATIONAL NORM RATIO 2.5 (0.9-1.1); Prothrombin Time 29.5 SEC (10.8-13.0)
[2021-04-04 12:13] LABS: Lactic Acid 3.9 mmol/L (0.5-2.0)
[2021-04-04 12:20] LABS: Troponin-I High Sensitivity < 3.5 ng/L (<3.5-17.0)
--- NOTE | 2021-04-04 12:20 | ECG_ITS ---
Test Reason : ALTERED MENTAL Blood Pressure : / mmHG Vent. Rate : 090 BPM Atrial Rate : 090 BPM P-R Int : 158 ms QRS Dur : 106 ms QT Int : 412 ms P-R-T Axes : 055 006 048 degrees QTc Int : 504 ms Normal sinus rhythm Prolonged QT Abnormal ECG When compared with ECG of 19-MAR-2021 20:52, No significant change was found Referred By: Ame Canales Electronically Signed By:BERT VALDOVINOS MD
[2021-04-04 12:21] LABS: Alanine Aminotransferase 17 U/L (0-31); Albumin Level 3.5 g/dL (3.5-5.0); Alkaline Phosphatase 131 U/L (39-117); Anion Gap 19 (12-20); Aspartate Amino Transferase 20 U/L (5-31); Bilirubin Total 0.3 mg/dL (0.0-1.0); Blood Urea Nitrogen 13 mg/dL (9-16); Calcium 8.6 mg/dL (8.4-10.2); Carbon Dioxide 18 mmol/L (22-29); Chloride 101 mmol/L (96-108); Creatinine Clr Calc Pharmacy 38.3; Estimated Glomerular Filt Rate 49; Glucose Random 106 mg/dL (60-115); Potassium 2.8 mmol/L (3.3-5.1); Sodium 135 mmol/L (135-145); Total Protein 6.7 g/dL (6.5-8.0)
--- NOTE | 2021-04-04 12:42 | ED_ITS ---
HPI - Altered Mental Status General Chief Complaint: Altered Mental Status Stated Complaint: sepsis alert, ?uti Time Seen by Provider: 04/04/21 12:04 Source: patient, family and EMS Mode of arrival: EMS Limitations: no limitations History of Present Illness HPI narrative: 80 yo female with past medical history of HTN, dementia, PE on coumadin, anemia here with who is concerned for change in mental status. He tells me the patient has had intermittent confusion with an underlying history of dementia for the last few months to years. She has increasing confusion typically when she has a urinary tract infection. He tells me the patient is currently on macrobid which she has been taking since 03/30 for UTI. She does have history of ESBL positive UTI with admissions. She was admitted to this facility and October and was discharged to a short-term rehab for a period of time. She has been home with for approximately 2-3 months per her . He tells me that today he went out to do some errands and when he came back at 09:30 he noticed the patient to be more confused from baseline and also her speech seemed different to him. Patient tells me that she does not feel confused and does not think her speech is different. She is complaining of diarrhea and lower abdominal cramping which she tells me she has had for months. She tells me she has 3-4 episodes of diarrhea a day worsened this week secondary to taking an antibiotic. She denies any fevers, chills, nausea, vomiting. There were reports of some shortness of breath witnessed by the when she seemed confused this morning at 09:30 when he saw her but the patient denies any shortness of breath, cough or chest pain. Last known normal approximately 0830 per . complaint: confusion Related Data Home Medications Medication Instructions Recorded Confirmed famotidine 20 mg tablet 40 mg PO BID tab 09/11/20 04/04/21 folic acid 1 mg PO DAILY 10/06/20 04/04/21 warfarin 2 mg PO SUTUTHSA@1800 10/06/20 04/04/21 warfarin 4 mg PO MOWEFR@1800 10/06/20 04/04/21 magnesium oxide 800 mg PO BID tab 02/02/21 04/04/21 metoprolol tartrate 25 mg tablet 12.5 mg PO BID tab 02/24/21 04/04/21 amoxicillin-pot clavulanate 1 tab PO BID 04/04/21 04/04/21 mirabegron [Myrbetriq] 25 mg PO BEDTIME 04/04/21 04/04/21 quetiapine 25 mg PO BID 04/04/21 04/04/21 Previous Rx's Medication Instructions Recorded nitrofurantoin 100 mg PO Q12H 7 Days #14 cap 03/29/21 monohydrate/macrocrystals 100 mg capsule Allergies Allergy/AdvReac Type Severity Reaction Status Date / Time sulfamethoxazole Allergy Severe Itching Verified 03/27/21 11:53 [From Bactrim] trimethoprim [From Bactrim] Allergy Severe Itching Verified 03/27/21 11:53 cortisone [Cortisone] Allergy Mild PT STATES Verified 03/27/21 11:47 IT COULD AFFECT HS TB CYSTALS IN,LUNG prochlorperazine Allergy Mild LEG Verified 03/27/21 11:47 [From Compazine] NUMBNESS hydrochlorothiazide Allergy Unknown RASH Verified 03/27/21 11:47 levofloxacin [Levaquin] Allergy Unknown Wakefulness, Verified 03/27/21 11:47 nausea, shaking Sulfa (Sulfonamide AdvReac Intermediate rash Verified 03/27/21 11:47 Antibiotics) codeine AdvReac Unknown NAUSEA/VOMI Verified 03/27/21 11:47 TING chocolate Allergy Unknown severe Uncoded 08/18/20 15:35 headaches/vomiting Review of Systems Review of Systems: Obtained from both and family Yes all other systems are reviewed and are negative Constitutional: Constitutional: Reports no additional constitutional complaints, Denies body ache(s), Denies chills, Denies fever(s), Denies headache(s) and Denies weakness Eyes: Eyes: Reports no additional eye complaints and Denies change in vision ENT: Reports system reviewed and no additional complaints, except as documented, Denies dizziness, Denies headache(s), Denies nasal congestion, Denies nasal discharge and Denies neck pain Cardiovascular: Cardiovascular: Reports no additional cardiovascular complaints, Denies chest pain, Denies leg edema and Denies dyspnea Respiratory: Respiratory: Reports no additional respiratory complaints, Denies cough and Denies dyspnea Gastrointestinal: Gastrointestinal: Reports no additional gastrointestinal complaints, Reports abdominal pain, Reports diarrhea, Denies nausea and Denies vomiting Genitourinary: Genitourinary: Reports no additional female genitourinary complaints and Denies urinary incontinence Musculoskeletal: Musculoskeletal: Reports no additional musculoskeletal complaints, Denies back pain, Denies arthralgias, Denies joint swelling, Denies neck pain, Denies numbness and Denies tingling Integumentary/Breasts: Skin/Breast: Reports system reviewed and no additional complaints, except as docu and Denies rash Neurologic: Reports system reviewed and no additional complaints, except as documented, Reports Abnormal speech present, Denies dizziness, Denies headache( s), Denies numbness, Denies tingling and Denies weakness Comments: Slurred speech PMFSH Past Medical History Attestation statement: The following information was validated with the patient. Source: old records reviewed and nursing notes reviewed Medical History B12 deficiency Breast cancer Fatty liver, alcoholic GERD (gastroesophageal reflux disease) History of alcohol use History of pulmonary embolism History of right breast cancer HTN (hypertension) Hx of deep venous thrombosis Hx of hypercalcemia Hx of metabolic acidosis Hx of tuberculosis Hypomagnesemia Impaired fasting glucose Irritable bowel syndrome Osteoarthritis of left knee Osteoporosis Peripheral neuropathy Pernicious anemia Thrombocytopenia Surgical History H/O right mastectomy History of appendectomy History of arthroplasty of left knee History of cataract surgery History of cystoscopy History of esophagogastroduodenoscopy (EGD) History of evacuation of hematoma History of knee replacement procedure of right knee History of left knee surgery History of lumpectomy of right breast History of tonsillectomy Hx of adenoidectomy Hx of colonoscopy S/P SASHA-BSO (total abdominal hysterectomy and bilateral salpingo-oophorectomy) Family History Family History Father No problems noted. Mother No problems noted. Social History Social History Household Members: Spouse Housing: House Are you a primary chronic care nurse to a significant other at home: No Do you presently have visiting nurse or other home services: Yes (Physical therapy) Alcohol intake: current Alcohol intake frequency: holidays/special occasions only Alcohol type: wine Patient Tobacco Use Status: Never used Tobacco Advance Directives: No Advance Directives Information Provided: Yes Advance Directives Date on File: 09/11/20 service: No Current occupational status: retired Physical Exam Vital Signs: Vital Signs: Last Vital Signs Temp 97.8 F 04/04/21 18:12 Pulse 89 04/04/21 18:12 Resp 18 04/04/21 18:12 BP 119/64 04/04/21 18:12 Pulse Ox 98 04/04/21 18:12 Body Mass Index 24.1 Const: General: no acute distress and alert Orientation/consciousness: patient oriented x3 Limitations: no limitations HENMT: Head: Yes normal to inspection Ears: hearing grossly normal bilaterally and TM's normal bilaterally General nose exam: Normal external nose present Face and sinus: Yes normal facial exam Mouth: Normal oral and palatal mucosa present Throat: Yes posterior oropharynx normal, Yes tonsils normal and Yes uvula midline Eyes: General: appearance normal, both eyes and all related structures Pupils: Equal, round and reactive pupils present Neck: Neck: Yes normal visual inspection, Yes full ROM, Yes no lymphadenopathy and Yes no meningeal signs Chest: Chest palpation & inspection: normal inspection of the chest Resp: Effort & Inspection: normal respiratory effort Auscultation: clear to auscultation bilaterally Cardio: Rate: regular rate Rhythm: regular rhythm Peripheral pulses: Peripheral pulses 2+ throughout GI: Inspection: Yes normal to inspection Palpation (GI): Soft to palpation and Tenderness to palpation present (GI) (mild tenderness to the bilateral lower quadrants . no rebound or guarding ) Auscultation: normal bowel sounds Back/Spine/Pelvis: Thoracic/Lumbar Spine: thoracic and lumbar spine normal to inspection Skin: General skin exam: no rashes or lesions noted Neuro: Other: Difficulty performing tasks, requires frequent re-direction. Unable to perform finger to nose, heel to otero as she has difficulty comprehending tasks. General: patient oriented x3 and no meningeal signs Cranial nerves: Yes CN's II-XII intact bilaterally, Yes Equal, round and reactive pupils present, Yes Bilaterally intact EOM present, Yes Nystagmus not present, Yes Normal facial strength present and Yes Midline tongue present C ognition (Neuro): normal cognition Speech: Abnormal speech present slurred and stuttering Gait exam (Neuro): Normal gait present Motor exam (neuro): 5/5 motor strength present throughout Sensory Exam: Normal double simultaneous stimulation for sensation Extrem: General: Yes normal to inspection NIH Stroke Scale Internal: Initial- Upon Arrival Time: 12:04 Level of Consciousness: Alert Level of Consciousness Questions: Answers both questions correctly Level of Consciousness Commands: Performs both tasks correctly Best Gaze: Normal Visual: No visual loss Facial Palsy: Normal Motor Arm (Right): No drift Motor Arm (Left): No drift Motor Leg (Right): No drift Motor Leg (Left): No drift Limb Ataxia: Absent (unable to perform) Sensory: Normal Best Language: Mild to moderate aphasia Dysarthia: Mild to moderate dysarthria Extinction and Inattention: No abnormality Score: 2 Course Course Course Narrative: 80-year-old female with underlying history of dementia, recurrent UTIs, hypertension, anemia, PE on Coumadin here with complaints of altered mental status with slurred speech from baseline since 09:30. Last known normal 08:30 her . Patient does not feel confused or feel like her speech is off. She does have some what appears to be difficulty comprehending simple tasks and answering questions appropriately. On exam she has some stuttering and slurred speech but no overt neurological deficit. However, the exam is limited due to her being able to comprehend simple tests and complete them. Hemodynamically stable. tells me patient presents similarly with UTIs in the past. She is currently on Macrobid for presumed UTI for the last 5 days. She is complaining of lower abdominal cramping, diarrhea which she has had for months but worsened last week with taking her antibiotic. She is also complaining of some urinary burning and frequency for the last few days. -NIH 2 however ?underlying metabolic cause vs CVA. Also patient not TPA candidate d/t coumadin use. D/t AMS, speech changes, multiple complaints of abdominal cramping, diarrhea, urinary symptoms from patient will check CT head, CT chest, CT abdomen/pelvis. In addition patient will need EKG, labs, UA. 1415-Nursing tells me patient is refusing all labs and interventions. She is asking to speak to the provider. I went to speak to the patient. She is confused. She tells me she needs to talk to a doctor about her sexual relationship with her . She is refusing all interventions. I spoke to the privately. And he is very concerned about her confusion. At this point as she is uncooperative and confused we will medicate her to obtain labs and urine sample. 1700-imaging unremarkable. Labs show no acute finding. Continued speech changes with increasing confusion since 09:30. Consider acute CVA. Patient will need admission for further workup. Discussed findings with Dr. Valdez from the medicine team who accepted admission. MDM - Altered Mental Status MDM Narrative Medical decision making narrative: ICH vs lesion vs CVA, ACS Differential Diagnosis Differential diagnosis: Likely altered mental status, dementia, encephalopathy, hypoglycemia, hyponatremia, renal failure and sepsis Medical Records Attestation: I reviewed the patient's medical records. Lab Data Attestation: I reviewed the patient's lab results. Result diagrams: 04/04/21 11:38 04/04/21 11:38 Labs: Lab Results 04/04/21 04/04/21 04/04/21 Range/Units 11:38 11:38 11:38 WBC 7.8 (4.8-10.8) X10*3/uL RBC 3.53 L (4.20-5.50) X10*6/uL Hgb 11.3 L (12.0-16.0) g/dl Hct 34.4 L (37-47) % MCV 97.5 (80-98) fL MCH 32.0 (27.0-33.0) pg MCHC 32.8 (31.0-35.0) g/dl RDW 15.1 (11.0-16.0) % Plt Count 137 L (160-400) X10*3/uL MPV 10.5 (9.4-12.3) fL Immature Gran % (Auto) 0.5 H (0.0-0.4) % Neut % (Auto) 62.9 (45-73) % Lymph % (Auto) 17.0 L (20-40) % Swain % (Auto) 18.2 H (2-11) % Eos % (Auto) 0.8 (0-4) % Baso % (Auto) 0.6 (0-2) % Lymph # (Auto) 1.3 (1.2-4.9) X10*3/uL Swain # (Auto) 1.4 H (0.1-1.2) X10*3/uL Eos # (Auto) 0.1 (0.0-0.4) X10*3/uL Baso # (Auto) 0.1 (0.0-0.2) X10*3/uL Abs Immat Gran (auto) 0.04 H (0.00-0.03) X10*3/uL Absolute Neuts (auto) 4.9 (2.0-8.3) X10*3/uL Absolute Nucleated RBC 0.000 (0.0-0.012) X10*3/uL Nucleated RBC % (auto) 0.0 (0.0-0.2) /100WBC PT 29.5 H (10.8-13.0) SEC INR 2.5 H (0.9-1.1) APTT 50.3 H (24.1-38.0) SEC Sodium 135 (135-145) mmol/L Potassium 2.8 L D (3.3-5.1) mmol/L Chloride 101 (96-108) mmol/L Carbon Dioxide 18 L (22-29) mmol/L Anion Gap 19 (12-20) BUN 13 (9-16) mg/dL Creatinine 1.09 (0.5-1.4) mg/dL Estim Creat Clear Calc 38.3 Estimated GFR 49 Random Glucose 106 (60-115) mg/dL Lactic Acid (0.5-2.0) mmol/L Lactic Acid Fup @ 2Hr (0.5-2.0) mmol/L Lactic Acid Fup @ 4Hr (0.5-2.0) mmol/L Calcium 8.6 D (8.4-10.2) mg/dL Phosphorus 2.2 L (2.7-4.5) mg/dL Magnesium 1.9 (1.6-2.6) mg/dL Total Bilirubin 0.3 (0.0-1.0) mg/dL Direct Bilirubin 0.2 (0.0-0.5) mg/dL AST 20 (5-31) U/L ALT 17 (0-31) U/L Alkaline Phosphatase 131 H D (39-117) U/L Total Creatine Kinase 34 (26-140) U/L Troponin I High Sens (<3.5-17.0) ng/L Total Protein 6.7 (6.5-8.0) g/dL Albumin 3.5 (3.5-5.0) g/dL Urine Color Urine Appearance Urine pH (5.0-8.0) Ur Specific [place]ume (1.005-1.025) Urine Protein (NEG-TRACE) MG/DL Urine Glucose (UA) (NEG) MG/DL Urine Ketones (NEG) MG/DL Urine Blood (NEG) Urine Nitrite (NEG) Ur Leukocyte Esterase (NEG) Urine RBC (0) /HPF Urine WBC (0-4) /HPF Ur Squamous Epith Cells /LPF Urine Bacteria /LPF Urine Opiates Screen (Not Detect) Ur Barbiturates Screen (Not Detect) Ur Phencyclidine Scrn (Not Detect) Ur Amphetamines Screen (Not Detect) U Benzodiazepines Scrn (Not Detect) Urine Cocaine Screen (Not Detect) U Marijuana (THC) Screen (Not Detect) COVID-19 ([facility]) (Negative) COVID-19 Clin Com 04/04/21 04/04/21 04/04/21 Range/Units 11:38 11:38 14:48 WBC (4.8-10.8) X10*3/uL RBC (4.20-5.50) X10*6/uL Hgb (12.0-16.0) g/dl Hct (37-47) % MCV (80-98) fL MCH (27.0-33.0) pg MCHC (31.0-35.0) g/dl RDW (11.0-16.0) % Plt Count (160-400) X10*3/uL MPV (9.4-12.3) fL Immature Gran % (Auto) (0.0-0.4) % Neut % (Auto) (45-73) % Lymph % (Auto) (20-40) % Swain % (Auto) (2-11) % Eos % (Auto) (0-4) % Baso % (Auto) (0-2) % Lymph # (Auto) (1.2-4.9) X10*3/uL Swain # (Auto) (0.1-1.2) X10*3/uL Eos # (Auto) (0.0-0.4) X10*3/uL Baso # (Auto) (0.0-0.2) X10*3/uL Abs Immat Gran (auto) (0.00-0.03) X10*3/uL Absolute Neuts (auto) (2.0-8.3) X10*3/uL Absolute Nucleated RBC (0.0-0.012) X10*3/uL Nucleated RBC % (auto) (0.0-0.2) /100WBC PT (10.8-13.0) SEC INR (0.9-1.1) APTT (24.1-38.0) SEC Sodium (135-145) mmol/L Potassium (3.3-5.1) mmol/L Chloride (96-108) mmol/L Carbon Dioxide (22-29) mmol/L Anion Gap (12-20) BUN (9-16) mg/dL Creatinine (0.5-1.4) mg/dL Estim Creat Clear Calc Estimated GFR Random Glucose (60-115) mg/dL Lactic Acid 3.9 H* (0.5-2.0) mmol/L Lactic Acid Fup @ 2Hr (0.5-2.0) mmol/L Lactic Acid Fup @ 4Hr (0.5-2.0) mmol/L Calcium (8.4-10.2) mg/dL Phosphorus (2.7-4.5) mg/dL Magnesium (1.6-2.6) mg/dL Total Bilirubin (0.0-1.0) mg/dL Direct Bilirubin (0.0-0.5) mg/dL AST (5-31) U/L ALT (0-31) U/L Alkaline Phosphatase (39-117) U/L Total Creatine Kinase (26-140) U/L Troponin I High Sens < 3.5 < 3.5 (<3.5-17.0) ng/L Total Protein (6.5-8.0) g/dL Albumin (3.5-5.0) g/dL Urine Color Urine Appearance Urine pH (5.0-8.0) Ur Specific [place] (1.005-1.025) Urine Protein (NEG-TRACE) MG/DL Urine Glucose (UA) (NEG) MG/DL Urine Ketones (NEG) MG/DL Urine Blood (NEG) Urine Nitrite (NEG) Ur Leukocyte Esterase (NEG) Urine RBC (0) /HPF Urine WBC (0-4) /HPF Ur Squamous Epith Cells /LPF Urine Bacteria /LPF Urine Opiates Screen (Not Detect) Ur Barbiturates Screen (Not Detect) Ur Phencyclidine Scrn (Not Detect) Ur Amphetamines Screen (Not Detect) U Benzodiazepines Scrn (Not Detect) Urine Cocaine Screen (Not Detect) U Marijuana (THC) Screen (Not Detect) COVID-19 ([facility]) (Negative) COVID-19 Clin Com 04/04/21 04/04/21 04/04/21 Range/Units 14:48 14:48 14:48 WBC (4.8-10.8) X10*3/uL RBC (4.20-5.50) X10*6/uL Hgb (12.0-16.0) g/dl Hct (37-47) % MCV (80-98) fL MCH (27.0-33.0) pg MCHC (31.0-35.0) g/dl RDW (11.0-16.0) % Plt Count (160-400) X10*3/uL MPV (9.4-12.3) fL Immature Gran % (Auto) (0.0-0.4) % Neut % (Auto) (45-73) % Lymph % (Auto) (20-40) % Swain % (Auto) (2-11) % Eos % (Auto) (0-4) % Baso % (Auto) (0-2) % Lymph # (Auto) (1.2-4.9) X10*3/uL Swain # (Auto) (0.1-1.2) X10*3/uL Eos # (Auto) (0.0-0.4) X10*3/uL Baso # (Auto) (0.0-0.2) X10*3/uL Abs Immat Gran (auto) (0.00-0.03) X10*3/uL Absolute Neuts (auto) (2.0-8.3) X10*3/uL Absolute Nucleated RBC (0.0-0.012) X10*3/uL Nucleated RBC % (auto) (0.0-0.2) /100WBC PT (10.8-13.0) SEC INR (0.9-1.1) APTT (24.1-38.0) SEC Sodium (135-145) mmol/L Potassium (3.3-5.1) mmol/L Chloride (96-108) mmol/L Carbon Dioxide (22-29) mmol/L Anion Gap (12-20) BUN (9-16) mg/dL Creatinine (0.5-1.4) mg/dL Estim Creat Clear Calc Estimated GFR Random Glucose (60-115) mg/dL Lactic Acid (0.5-2.0) mmol/L Lactic Acid Fup @ 2Hr 3.4 H* (0.5-2.0) mmol/L Lactic Acid Fup @ 4Hr (0.5-2.0) mmol/L Calcium (8.4-10.2) mg/dL Phosphorus (2.7-4.5) mg/dL Magnesium (1.6-2.6) mg/dL Total Bilirubin (0.0-1.0) mg/dL Direct Bilirubin (0.0-0.5) mg/dL AST (5-31) U/L ALT (0-31) U/L Alkaline Phosphatase (39-117) U/L Total Creatine Kinase (26-140) U/L Troponin I High Sens (<3.5-17.0) ng/L Total Protein (6.5-8.0) g/dL Albumin (3.5-5.0) g/dL Urine Color YELLOW Urine Appearance CLEAR Urine pH 6.0 (5.0-8.0) Ur Specific [place]ume <= 1.005 (1.005-1.025) Urine Protein NEG (NEG-TRACE) MG/DL Urine Glucose (UA) NEG (NEG) MG/DL Urine Ketones NEG (NEG) MG/DL Urine Blood TRACE (NEG) Urine Nitrite NEG (NEG) Ur Leukocyte Esterase NEG (NEG) Urine RBC 0-2 (0) /HPF Urine WBC 0 (0-4) /HPF Ur Squamous Epith Cells TRACE /LPF Urine Bacteria TRACE /LPF Urine Opiates Screen (Not Detect) Ur Barbiturates Screen (Not Detect) Ur Phencyclidine Scrn (Not Detect) Ur Amphetamines Screen (Not Detect) U Benzodiazepines Scrn (Not Detect) Urine Cocaine Screen (Not Detect) U Marijuana (THC) Screen (Not Detect) COVID-19 ([facility]) Negative (Negative) COVID-19 Clin Com See Note 04/04/21 04/04/21 Range/Units 14:48 17:04 WBC (4.8-10.8) X10*3/uL RBC (4.20-5.50) X10*6/uL Hgb (12.0-16.0) g/dl Hct (37-47) % MCV (80-98) fL MCH (27.0-33.0) pg MCHC (31.0-35.0) g/dl RDW (11.0-16.0) % Plt Count (160-400) X10*3/uL MPV (9.4-12.3) fL Immature Gran % (Auto) (0.0-0.4) % Neut % (Auto) (45-73) % Lymph % (Auto) (20-40) % Swain % (Auto) (2-11) % Eos % (Auto) (0-4) % Baso % (Auto) (0-2) % Lymph # (Auto) (1.2-4.9) X10*3/uL Swain # (Auto) (0.1-1.2) X10*3/uL Eos # (Auto) (0.0-0.4) X10*3/uL Baso # (Auto) (0.0-0.2) X10*3/uL Abs Immat Gran (auto) (0.00-0.03) X10*3/uL Absolute Neuts (auto) (2.0-8.3) X10*3/uL Absolute Nucleated RBC (0.0-0.012) X10*3/uL Nucleated RBC % (auto) (0.0-0.2) /100WBC PT (10.8-13.0) SEC INR (0.9-1.1) APTT (24.1-38.0) SEC Sodium (135-145) mmol/L Potassium (3.3-5.1) mmol/L Chloride (96-108) mmol/L Carbon Dioxide (22-29) mmol/L Anion Gap (12-20) BUN (9-16) mg/dL Creatinine (0.5-1.4) mg/dL Estim Creat Clear Calc Estimated GFR Random Glucose (60-115) mg/dL Lactic Acid (0.5-2.0) mmol/L Lactic Acid Fup @ 2Hr (0.5-2.0) mmol/L Lactic Acid Fup @ 4Hr 3.0 H* (0.5-2.0) mmol/L Calcium (8.4-10.2) mg/dL Phosphorus (2.7-4.5) mg/dL Magnesium (1.6-2.6) mg/dL Total Bilirubin (0.0-1.0) mg/dL Direct Bilirubin (0.0-0.5) mg/dL AST (5-31) U/L ALT (0-31) U/L Alkaline Phosphatase (39-117) U/L Total Creatine Kinase (26-140) U/L Troponin I High Sens (<3.5-17.0) ng/L Total Protein (6.5-8.0) g/dL Albumin (3.5-5.0) g/dL Urine Color Urine Appearance Urine pH (5.0-8.0) Ur Specific [place] (1.005-1.025) Urine Protein (NEG-TRACE) MG/DL Urine Glucose (UA) (NEG) MG/DL Urine Ketones (NEG) MG/DL Urine Blood (NEG) Urine Nitrite (NEG) Ur Leukocyte Esterase (NEG) Urine RBC (0) /HPF Urine WBC (0-4) /HPF Ur Squamous Epith Cells /LPF Urine Bacteria /LPF Urine Opiates Screen Not Detected (Not Detect) Ur Barbiturates Screen Not Detected (Not Detect) Ur Phencyclidine Scrn Not Detected (Not Detect) Ur Amphetamines Screen Not Detected (Not Detect) U Benzodiazepines Scrn POSITIVE H (Not Detect) Urine Cocaine Screen Not Detected (Not Detect) U Marijuana (THC) Screen Not Detected (Not Detect) COVID-19 ([facility]) (Negative) COVID-19 Clin Com Imaging Data CT scan - chest: Attestation: I personally reviewed and interpreted this imaging study as follows: Radiologist's impression: IMPRESSION: Diffuse chronic interstitial lung disease and. No acute pneumonic consolidation seen. CT scan - abdomen: Attestation: I personally reviewed and interpreted this imaging study as follows: Radiologist's impression: Radiopaque dependent gravel in the gallbladder but no wall thickening. I lateral extrarenal kidney pelvises without radiopaque urolith or hydronephrosis. No acute intra-abdominal process seen. Extensive postsurgical changes right pelvis. CT scan - head: Attestation: I personally reviewed and interpreted this imaging study as follows: Radiologist's impression: FINDINGS: There is no evidence of acute intracranial hemorrhage or territorial infarction. No abnormal mass effect or midline shift is seen. Carias to white matter differentiation is well preserved. No extra-axial fluid collections are identified. The ventricles are normal in size. Stable subcentimeter hypodensity is noted within the inferior part of the right basal ganglia, most consistent with prominent virchow naye space versus old lacunar infarction. Mild prominent extra-axial space is also noted around both frontal lobes, consistent with mild atrophy, similar to prior study. The osseous structures and soft tissues are normal. The mastoid air cells and visualized portions of the paranasal sinuses are well aerated. CT/CT head/brain wo con IMPRESSION: No acute intracranial pathology. ECG Data ECG #1: Attestation: I personally reviewed and interpreted this ECG as follows: ECG interpretation date: 04/04/21 ECG interpretation time: 12:56 Interpretation: Normal sinus rhythm rate 90, normal pr, normal qrs, prolonged qtc 504 Discharge Plan Discharge Clinical Impression: AMS (altered mental status), Slurred speech, Hypokalemia Patient Disposition: Admitted As Inpatient
[2021-04-04 12:53] LABS: Partial Thromboplastin Time 50.3 SEC (24.1-38.0)
[2021-04-04 13:04] LABS: Bilirubin Direct 0.2 mg/dL (0.0-0.5); Magnesium 1.9 mg/dL (1.6-2.6); Phosphorus 2.2 mg/dL (2.7-4.5)
[2021-04-04 13:42] LABS: Reflex Lactate? Lactic Acid Added
[2021-04-04] MEDS: Haloperidol Lactate 5 MG/ML VIAL IM (14:18)
[2021-04-04 15:02] LABS: Glucose Urine UA NEG (NEG); Leukocyte Esterase Urine NEG (NEG); Nitrite Urine NEG (NEG); Specific Gravity - Urine <= 1.005 (1.005-1.025); Urine Blood TRACE (NEG); Urine Ketones NEG (NEG); Urine Protein NEG (NEG-TRACE)
[2021-04-04 15:03] LABS: Appearance Urine CLEAR; Color Urine YELLOW
--- NOTE | 2021-04-04 15:10 | PC.NURSE ---
UPON ARRIVAL PT UPRIGHT IN BED, RR EVEN UNLABORED, SKIN WPD, ALERT, REFUSING TO ANSWER QUESTIONS. PT DEMANDING TO GO HOME, PT SOMEWHAT REDIRECTABLE, ALLOWED VITALS TO BE CHECKED. IV ESTABLISHED BY EMS APPEARED INFILTRATED UPON ARRIVAL, LARGE HEMATOMA RAISED AT SITE OF INSERTION, REMOVED AND DRESSING APPLIED. SHORTLY AFTER TRIAGE PT SUDDENLY AOX3, CALM, COOPERATIVE, ALLOWED BLOOD DRAW, RESTING QUIETLY IN BED. PT'S SPS ARRIVED SHORTLY AFTER BLOOD DRAW COMPLETED, AT THAT TIME PT BECAME AGGRESSIVE AND AGITATED, REFUSING CARE, DEMANDING TO LEAVE, NOT REDIRECTABLE. PT EVALUTED BY MIG WELDER TU, ORDERS PLACED. PT REFUSING CARE FROM THIS RN, DEMANDING TO SPEAK TO PROVIDER, PT STATED I NEED TO TALK TO THE DOCTOR IMMEDIATELY, I NEED TO KNOW THE STATUS OF MY AND MY SEXUALLY, INFORMATION YOU CANT GIVE ME! MULTIPLE STAFF BROUGHT TO ROOM TO ATTEMPT LABS/IV, PT REFUSED CARE FROM THEM WELL, TU BROUGHT TO ROOM BUT PT REFUSED CARE FROM HER WELL. PT'S SPS CONSULTED BY PROVIDER, DECISION MADE FOR IM MEDICATION, ADMINISTERED WITHOUT INCIDENT. PT AMBULATED TO BR W/ EVEN STEADY GAIT, URINE SAMPLE OBTAINED. BACK IN ROOM PT CALM AND SLEEPY, ALLOWED IV INSERTION, LABS SENT. THIS RN TO ROOM, PT SLEEPING UPRIGHT IN BED, RR EVEN UNLABORED, WHEN IV FLUIDS ATTEMPED TO BE CONNECTED PT AWOKE AND REFUSED FLUIDS.
[2021-04-04 15:13] LABS: Bacteria Urine TRACE /LPF; RBC Urine 0-2 /HPF (0); Squamous Epithelial Cell Urine TRACE /LPF; WBC Urine 0 /HPF (0-4)
[2021-04-04 15:18] LABS: COVID-19 Test Negative (Negative)
[2021-04-04 15:21] LABS: Amphetamine Screen Urine Not Detected (Not Detect); Barbiturates, Urine Not Detected (Not Detect); Benzodiazepines Screen Urine POSITIVE (Not Detect); Cannabinoid Screen Urine Not Detected (Not Detect); Cocaine Screen Urine Not Detected (Not Detect); Opiate Screen Urine Not Detected (Not Detect); Phencyclidine Screen Urine Not Detected (Not Detect)
[2021-04-04 15:26] LABS: ~Lactic Acid-LAB USE ONLY 3.4 mmol/L (0.5-2.0)
[2021-04-04 15:30] LABS: Troponin-I High Sensitivity < 3.5 ng/L (<3.5-17.0)
[2021-04-04 16:57] LABS: Reflex Lactate? 2 Y
--- NOTE | 2021-04-04 17:06 | P.HPHOSP_ITS ---
History of Present Illness Date of Service: 04/04/21 Chief Complaint: Confusion, slur speech 80 year old female with recurrent UTI, history of breast cancer in 2006 in remission, history of DVT and PE and has been on anticoagulation with Coumadin since 2002., history of alcoholic fatty liver disease, history of to B12 deficiency and history of at tubular adenoma. A she present to the emergency room today accompanied by her who related that the patient has been confused since this morning and having slurred speech that has not improved. She has not had any weakness in the arms or the legs, no visual changes. In the ED she had a CT scan of the head which showed no acute stroke. Urinalysis is ne gative Significant for coronary artery disease. Review of Systems Review of Systems: Gen: no fever Resp: no sob, no cough CV: no chest, no HAIR, no leg edema GI: No n/v, no abd pain Neuro: confusion and slurness of speech and some agitation Yes all other systems are reviewed and are negative [facility] Medical History B12 deficiency Breast cancer Fatty liver, alcoholic GERD (gastroesophageal reflux disease) History of alcohol use History of pulmonary embolism History of right breast cancer HTN (hypertension) Hx of deep venous thrombosis Hx of hypercalcemia Hx of metabolic acidosis Hx of tuberculosis Hypomagnesemia Impaired fasting glucose Irritable bowel syndrome Osteoarthritis of left knee Osteoporosis Peripheral neuropathy Pernicious anemia Thrombocytopenia Family History Father No problems noted. Mother No problems noted. Surgical History H/O right mastectomy History of appendectomy History of arthroplasty of left knee History of cataract surgery History of cystoscopy History of esophagogastroduodenoscopy (EGD) History of evacuation of hematoma History of knee replacement procedure of right knee History of left knee surgery History of lumpectomy of right breast History of tonsillectomy Hx of adenoidectomy Hx of colonoscopy S/P SASHA-BSO (total abdominal hysterectomy and bilateral salpingo-oophorectomy) Social History Household Members: Spouse Housing: House Are you a primary rn care manager to a significant other at home: No Do you presently have visiting nurse or other home services: Yes (Physical therapy) Alcohol intake: current Alcohol intake frequency: holidays/special occasions only Alcohol type: wine Patient Tobacco Use Status: Never used Tobacco Advance Directives: No Advance Directives Information Provided: Yes Advance Directives Date on File: 09/11/20 service: No Current occupational status: retired Meds Allergies Allergy/AdvReac Type Severity Reaction Status Date / Time sulfamethoxazole Allergy Severe Itching Verified 03/27/21 11:53 [From Bactrim] trimethoprim [From Bactrim] Allergy Severe Itching Verified 03/27/21 11:53 cortisone [Cortisone] Allergy Mild PT STATES Verified 03/27/21 11:47 IT COULD AFFECT HS TB CYSTALS IN,LUNG prochlorperazine Allergy Mild LEG Verified 03/27/21 11:47 [From Compazine] NUMBNESS hydrochlorothiazide Allergy Unknown RASH Verified 03/27/21 11:47 levofloxacin [Levaquin] Allergy Unknown Wakefulness, Verified 03/27/21 11:47 nausea, shaking Sulfa (Sulfonamide AdvReac Intermediate rash Verified 03/27/21 11:47 Antibiotics) codeine AdvReac Unknown NAUSEA/VOMI Verified 03/27/21 11:47 TING chocolate Allergy Unknown severe Uncoded 08/18/20 15:35 headaches/vomiting Active Medications: Current Medications Generic Name Dose Route Start Last Admin Trade Name Freq PRN Reason Stop Dose Admin Pharmacy Consult 1 each 04/04/21 16:45 Consult Rx Perform Med Rec MISCELLANE ONCE PRN Consult order Home Medications Medication Instructions Recorded Confirmed Last Taken Type famotidine 20 mg tablet 40 mg PO BID tab 09/11/20 04/01/21 10/05/20 17:45 History folic acid 1 mg PO DAILY 10/06/20 04/01/21 Unknown History warfarin 2 mg PO SUTUTHSA@1800 10/06/20 04/01/21 Unknown History warfarin 4 mg PO MOWEFR@1800 10/06/20 04/01/21 Unknown History magnesium oxide 800 mg PO BID tab 02/02/21 04/01/21 Unknown History metoprolol tartrate 25 mg tablet 12.5 mg PO BID tab 02/24/21 04/01/21 Unknown History amoxicillin-pot clavulanate 1 tab PO BID 04/04/21 04/04/21 Unknown History mirabegron [Myrbetriq] 25 mg PO BEDTIME 04/04/21 04/04/21 Unknown History quetiapine 25 mg PO BID 04/04/21 04/04/21 Unknown History Physical Exam Vital Signs and Narrative: Vital Signs: Last Vital Signs Temp 97.7 F 04/04/21 11:39 Pulse 89 04/04/21 16:06 Resp 18 04/04/21 16:06 BP 110/61 04/04/21 16:06 Pulse Ox 100 04/04/21 16:06 Body Mass Index 24.1 Constitutional Awake and Alert, No apparent distress Neck Supple, No lymphadenopathy Cardiovascular RRR, No M/R/G, S1 S2, No S3 S4, No pedal edema Respiratory Lungs clear, No respiratory distress Gastrointestinal Non tender, Non-distended Skin No rash Neurological she oriented to self, place but not to date, she seem to have word finding difficult and slurness Psychological Appropriate affect Results Labs CBC and Chem 7: 04/04/21 11:38 04/04/21 11:38 Labs: Laboratory Results - last 24 hr 04/04/21 04/04/21 04/04/21 11:38 11:38 11:38 MCV 97.5 MCH 32.0 MCHC 32.8 RDW 15.1 Plt Count 137 L MPV 10.5 Immature Gran % (Auto) 0.5 H Neut % (Auto) 62.9 Lymph % (Auto) 17.0 L [place] % (Auto) 18.2 H Eos % (Auto) 0.8 Baso % (Auto) 0.6 Lymph # (Auto) 1.3 [place] # (Auto) 1.4 H Eos # (Auto) 0.1 Baso # (Auto) 0.1 Abs Immat Gran (auto) 0.04 H Absolute Neuts (auto) 4.9 Absolute Nucleated RBC 0.000 Nucleated RBC % (auto) 0.0 PT 29.5 H INR 2.5 H APTT 50.3 H Anion Gap 19 Estim Creat Clear Calc 38.3 Estimated GFR 49 Random Glucose 106 Lactic Acid Lactic Acid Fup @ 2Hr Calcium 8.6 D Phosphorus 2.2 L Magnesium 1.9 Total Bilirubin 0.3 Direct Bilirubin 0.2 AST 20 ALT 17 Alkaline Phosphatase 131 H D Total Creatine Kinase 34 Troponin I High Sens Total Protein 6.7 Albumin 3.5 Urine Color Urine Appearance Urine pH Ur Specific [place] Urine Protein Urine Glucose (UA) Urine Ketones Urine Blood Urine Nitrite Ur Leukocyte Esterase Urine RBC Urine WBC Ur Squamous Epith Cells Urine Bacteria Urine Opiates Screen Ur Barbiturates Screen Ur Phencyclidine Scrn Ur Amphetamines Screen U Benzodiazepines Scrn Urine Cocaine Screen U Marijuana (THC) Screen COVID-19 (FRITZ) COVID-19 Clin Com 04/04/21 04/04/21 04/04/21 11:38 11:38 14:48 MCV MCH MCHC RDW Plt Count MPV Immature Gran % (Auto) Neut % (Auto) Lymph % (Auto) [place] % (Auto) Eos % (Auto) Baso % (Auto) Lymph # (Auto) [place] # (Auto) Eos # (Auto) Baso # (Auto) Abs Immat Gran (auto) Absolute Neuts (auto) Absolute Nucleated RBC Nucleated RBC % (auto) PT INR APTT Anion Gap Estim Creat Clear Calc Estimated GFR Random Glucose Lactic Acid 3.9 H* Lactic Acid Fup @ 2Hr Calcium Phosphorus Magnesium Total Bilirubin Direct Bilirubin AST ALT Alkaline Phosphatase Total Creatine Kinase Troponin I High Sens < 3.5 < 3.5 Total Protein Albumin Urine Color Urine Appearance Urine pH Ur Specific [place] Urine Protein Urine Glucose (UA) Urine Ketones Urine Blood Urine Nitrite Ur Leukocyte Esterase Urine RBC Urine WBC Ur Squamous Epith Cells Urine Bacteria Urine Opiates Screen Ur Barbiturates Screen Ur Phencyclidine Scrn Ur Amphetamines Screen U Benzodiazepines Scrn Urine Cocaine Screen U Marijuana (THC) Screen COVID-19 ([facility]ITZ) COVID-19 Clin Com 04/04/21 04/04/21 04/04/21 14:48 14:48 14:48 MCV MCH MCHC RDW Plt Count MPV Immature Gran % (Auto) Neut % (Auto) Lymph % (Auto) [place] % (Auto) Eos % (Auto) Baso % (Auto) Lymph # (Auto) [place] # (Auto) Eos # (Auto) Baso # (Auto) Abs Immat Gran (auto) Absolute Neuts (auto) Absolute Nucleated RBC Nucleated RBC % (auto) PT INR APTT Anion Gap Estim Creat Clear Calc Estimated GFR Random Glucose Lactic Acid Lactic Acid Fup @ 2Hr 3.4 H* Calcium Phosphorus Magnesium Total Bilirubin Direct Bilirubin AST ALT Alkaline Phosphatase Total Creatine Kinase Troponin I High Sens Total Protein Albumin Urine Color YELLOW Urine Appearance CLEAR Urine pH 6.0 Ur Specific [place] <= 1.005 Urine Protein NEG Urine Glucose (UA) NEG Urine Ketones NEG Urine Blood TRACE Urine Nitrite NEG Ur Leukocyte Esterase NEG Urine RBC 0-2 Urine WBC 0 Ur Squamous Epith Cells TRACE Urine Bacteria TRACE Urine Opiates Screen Ur Barbiturates Screen Ur Phencyclidine Scrn Ur Amphetamines Screen U Benzodiazepines Scrn Urine Cocaine Screen U Marijuana (THC) Screen COVID-19 ([facility]ITZ) Negative COVID-19 Clin Com See Note 04/04/21 14:48 MCV MCH MCHC RDW Plt Count MPV Immature Gran % (Auto) Neut % (Auto) Lymph % (Auto) [place] % (Auto) Eos % (Auto) Baso % (Auto) Lymph # (Auto) [place] # (Auto) Eos # (Auto) Baso # (Auto) Abs Immat Gran (auto) Absolute Neuts (auto) Absolute Nucleated RBC Nucleated RBC % (auto) PT INR APTT Anion Gap Estim Creat Clear Calc Estimated GFR Random Glucose Lactic Acid Lactic Acid Fup @ 2Hr Calcium Phosphorus Magnesium Total Bilirubin Direct Bilirubin AST ALT Alkaline Phosphatase Total Creatine Kinase Troponin I High Sens Total Protein Albumin Urine Color Urine Appearance Urine pH Ur Specific [place] Urine Protein Urine Glucose (UA) Urine Ketones Urine Blood Urine Nitrite Ur Leukocyte Esterase Urine RBC Urine WBC Ur Squamous Epith Cells Urine Bacteria Urine Opiates Screen Not Detected Ur Barbiturates Screen Not Detected Ur Phencyclidine Scrn Not Detected Ur Amphetamines Screen Not Detected U Benzodiazepines Scrn POSITIVE H Urine Cocaine Screen Not Detected U Marijuana (THC) Screen Not Detected COVID-19 ([facility]ITZ) COVID-19 Clin Com Imaging Radiologist's Impressions: Impressions Head CT 04/04/21 12:21 IMPRESSION: No acute intracranial pathology. Abdomen/Pelvis CT 04/04/21 12:22 IMPRESSION: Diffuse chronic interstitial lung disease and. No acute pneumonic consolidation seen. Evidence of previous right mastectomy. 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 I lateral extrarenal kidney pelvises without radiopaque urolith or hydronephrosis. No acute intra-abdominal process seen. Extensive postsurgical changes right pelvis. Chest CT 04/04/21 12:22 IMPRESSION: Diffuse chronic interstitial lung disease and. No acute pneumonic consolidation seen. Evidence of previous right mastectomy. 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 I lateral extrarenal kidney pelvises without radiopaque urolith or hydronephrosis. No acute intra-abdominal process seen. Extensive postsurgical changes right pelvis. Assessment and Plan (1) Slurred speech: Status: Acute (2) TIA (transient ischemic attack): Status: Acute (3) Hypokalemia: Status: Acute (4) Lactic acidosis: Status: Acute (5) Protein calorie malnutrition: Status: Acute 80 year old female with slurness of speech with concern for possible stroke vs TI vs some metabolic encephalopathy Slur speech r/o stroke, not candidate for tPA d/t coumadin -Neuro check -Neuro consult -will consider MRI when machine is fixed -consider EEG Hypokalemia--replace orally, check Mag and recheck tomorow Lactic acidosis--not due to sepsis, hydrate and recheck h/o PE/DVT continue coumadin Recurrent UTI--on Macrobid, not good for old peopl, hold, continue Amxo Dementia with agiation Myrbetriq, Seroquel DVT prophylaxis--coumadin Full code, discussed with at bedside
[2021-04-04] MEDS: Magnesium Oxide 400 MG TABLET 800 MG PO (23:45)
[2021-04-04] MEDS: Metoprolol Tartrate 12.5 MG HALFTAB PO (23:45)
[2021-04-04] MEDS: QUEtiapine Fumarate 25 MG TABLET PO (23:45)
[2021-04-04] MEDS: Amoxicillin/Potassium Clav 500 MG TABLET PO (23:45)
--- NOTE | 2021-04-04 23:51 | PC.NURSE ---
Mirabegron not given because patient states my doctor told me to stop taking that about a week ago . Primary RN (Andrea Webber) aware.
[2021-04-05 01:03] VITALS: BP 133/59; PULSE 95; RESP 13; O2SAT 95
[2021-04-05] MEDS: Dextrose 5 % and 0.9 % NaCl 1,000 ML 100 ML IVCONT (02:40)
[2021-04-05] MEDS: 0.9 % Sodium Chloride Flush 3 ML SYRINGE IVFLUSH ×2 (02:41→09:53)
[2021-04-05 07:17] LABS: INTERNATIONAL NORM RATIO 3.3 (0.9-1.1); Prothrombin Time 39.2 SEC (10.8-13.0)
[2021-04-05 07:47] LABS: Anion Gap 11 (12-20); Blood Urea Nitrogen 10 mg/dL (9-16); Calcium 8.1 mg/dL (8.4-10.2); Carbon Dioxide 26 mmol/L (22-29); Chloride 109 mmol/L (96-108); Cholesterol 201 mg/dL; Creatinine Clr Calc Pharmacy 52.8; Estimated Glomerular Filt Rate > 60; Glucose Random 92 mg/dL (60-115); HDL Cholesterol 71 mg/dL; LDL Cholesterol Calculated 118 mg/dl; Potassium 3.3 mmol/L (3.3-5.1); Sodium 143 mmol/L (135-145); Triglycerides 64 mg/dL
[2021-04-05] MEDS: Magnesium Oxide 400 MG TABLET 800 MG PO ×2 (09:50→21:45)
[2021-04-05] MEDS: Famotidine 20 MG TABLET 40 MG PO ×3 (09:50→21:44)
[2021-04-05] MEDS: QUEtiapine Fumarate 25 MG TABLET PO ×2 (09:50→21:45)
[2021-04-05] MEDS: Folic Acid 1 MG TABLET PO (09:50)
[2021-04-05] MEDS: Amoxicillin/Potassium Clav 500 MG TABLET PO ×2 (09:51→21:44)
[2021-04-05 09:52] VITALS: BP 127/66; PULSE 99
[2021-04-05] MEDS: Metoprolol Tartrate 12.5 MG HALFTAB PO ×2 (09:52→21:45)
--- NOTE | 2021-04-05 09:56 | PC.NURSE ---
pt awake and answering questions, occasional connfussion. at bedside, pt and updated on plan. pt needs being met
--- NOTE | 2021-04-05 09:58 | PC.NURSE ---
pt is tolerating po
--- NOTE | 2021-04-05 10:03 | P.PNIM_ITS ---
Subjective Subjective Date of Service: 04/05/21 Interval History: Seen in follow-up for slurred speech. TIA versus stroke. Confusion. Her speech is clear today, less confused. Review of Systems Gen: no fever Resp: no sob, no cough CV: no chest, no HAIR, no leg edema GI: No n/v, no abd pain Neuro: confusion and slurness of speech and some agitation Physical Exam Vital Signs: Vital Signs: Last Vital Signs Temp 98 F 04/04/21 20:03 Pulse 99 04/05/21 09:52 Resp 13 04/05/21 01:03 BP 127/66 04/05/21 09:52 Pulse Ox 95 04/05/21 01:03 Body Mass Index 24.1 Const: Other: Constitutional Awake and Alert, No apparent distress Neck Supple, No lymphadenopathy Cardiovascular RRR, No M/R/G, S1 S2, No S3 S4, No pedal edema Respiratory Lungs clear, No respiratory distress Gastrointestinal Non tender, Non-distended Skin No rash Neurological she oriented to self, place and time, no word finding difficulty anyjmore. No focal neuro deficit Psychological Appropriate affect Objective Data Current Medications Generic Name Dose Route Start Last Admin Trade Name Freq PRN Reason Stop Dose Admin Acetaminophen 650 mg 04/04/21 23:10 Acetaminophen Supp 650 Mg Supp.Rect DC Q6H PRN Pain, Mild (Pain Scale 1-3) Amoxicillin/Clavulanate Potassium 500 mg 04/04/21 23:10 04/05/21 09:51 Amoxicillin/Potassium Clav 500 Mg Tablet PO 500 mg BID ADAM Administration Famotidine 40 mg 04/04/21 23:10 04/05/21 09:50 Famotidine 20 Mg Tablet PO 40 mg BID ADAM Administration Folic Acid 1 mg 04/05/21 09:00 04/05/21 09:50 Folic Acid 1 Mg Tablet PO 1 mg DAILY ADAM Administration Magnesium Oxide 800 mg 04/04/21 23:10 04/05/21 09:50 Magnesium Oxide 400 Mg Tablet PO 800 mg BID ADAM Administration Metoprolol Tartrate 12.5 mg 04/04/21 23:10 04/05/21 09:52 Metoprolol Tartrate 12.5 Mg Halftab PO 12.5 mg BID ADAM Administration Protocol Mirabegron 25 mg 04/04/21 23:10 04/04/21 23:51 Mirabegron 25 Mg Tab.Er.24h PO Not Given BEDTIME [facility] Pharmacy Consult 1 each 04/04/21 16:45 Consult Rx Perform Med Rec MISCELLANE ONCE PRN Consult order Quetiapine Fumarate 25 mg 04/04/21 23:10 04/05/21 09:50 Quetiapine Fumarate 25 Mg Tablet PO 25 mg BID ADAM Administration Sodium Chloride 3 ml 04/05/21 00:00 04/05/21 09:53 0.9 % Sodium Chloride Flush 3 Ml Syringe IVFLUSH 3 ml QSHIFT ADAM Administration Warfarin Sodium 2 mg 04/05/21 18:00 Warfarin Sodium 2 Mg Tablet PO SUTUTHSA@1800 [facility] Warfarin Sodium 4 mg 04/06/21 18:00 Warfarin Sodium 4 Mg Tablet PO MOWEFR@1800 [facility] Labs CBC & Chem 7: 04/04/21 11:38 04/05/21 06:55 Assessment and Plan (1) Slurred speech: Status: Acute (2) TIA (transient ischemic attack): Status: Acute (3) Hypokalemia: Status: Acute (4) Lactic acidosis: Status: Acute (5) Protein calorie malnutrition: Status: Acute Assessment and Plan: 80 year old female with slurness of speech with concern for possible stroke vs TI vs some metabolic encephalopathy Slur speech r/o stroke, not candidate for tPA d/t coumadin -Neuro check -Neuro consult pending -will consider MRI when machine is fixed -consider EEG -PT, OT, speech eval tomorrow Hypokalemia--corrected, replaced orally Lactic acidosis--not due to sepsis, hydrate and recheck h/o PE/DVT continue coumadin 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
[2021-04-05 13:33] VITALS: BP 142/77; PULSE 103; RESP 15; TEMP 36.4; O2SAT 97
--- NOTE | 2021-04-05 13:43 | PC.NURSE ---
tiger text Dr marshall around 1250 pt wanted updates, reply was he is waiting for a neuro consult.
--- NOTE | 2021-04-05 13:47 | PM.NEUROCN ---
History of Present Illness Data of Consult Service Date: 04/05/21 Primary Care Provider: Vinicius Burnett MD 80 years old woman with underlying history of breast cancer many years ago came to hospital with change in mental status. She was unable to provide any history stating that her said that she was not speaking right. There was no sign of distress. There was no cardiac or years symptom chills fever or pain. [facility] Past Medical History Medical History B12 deficiency Breast cancer Fatty liver, alcoholic GERD (gastroesophageal reflux disease) History of alcohol use History of pulmonary embolism History of right breast cancer HTN (hypertension) Hx of deep venous thrombosis Hx of hypercalcemia Hx of metabolic acidosis Hx of tuberculosis Hypomagnesemia Impaired fasting glucose Irritable bowel syndrome Osteoarthritis of left knee Osteoporosis Peripheral neuropathy Pernicious anemia Thrombocytopenia Family History Family History Father No problems noted. Mother No problems noted. Surgical History Surgical History H/O right mastectomy History of appendectomy History of arthroplasty of left knee History of cataract surgery History of cystoscopy History of esophagogastroduodenoscopy (EGD) History of evacuation of hematoma History of knee replacement procedure of right knee History of left knee surgery History of lumpectomy of right breast History of tonsillectomy Hx of adenoidectomy Hx of colonoscopy S/P SASHA-BSO (total abdominal hysterectomy and bilateral salpingo-oophorectomy) Social History Social History Household Members: Spouse Housing: House Are you a primary manager medicare to a significant other at home: No Do you presently have visiting nurse or other home services: Yes (Physical therapy) Alcohol intake: current Alcohol intake frequency: holidays/special occasions only Alcohol type: wine Patient Tobacco Use Status: Never used Tobacco Advance Directives: No Advance Directives Information Provided: Yes Advance Directives Date on File: 09/11/20 service: No Current occupational status: retired Meds Allergies Allergy/AdvReac Type Severity Reaction Status Date / Time sulfamethoxazole Allergy Severe Itching Verified 03/27/21 11:53 [From Bactrim] trimethoprim [From Bactrim] Allergy Severe Itching Verified 03/27/21 11:53 cortisone [Cortisone] Allergy Mild PT STATES Verified 03/27/21 11:47 IT COULD AFFECT HS TB CYSTALS IN,LUNG prochlorperazine Allergy Mild LEG Verified 03/27/21 11:47 [From Compazine] NUMBNESS hydrochlorothiazide Allergy Unknown RASH Verified 03/27/21 11:47 levofloxacin [Levaquin] Allergy Unknown Wakefulness, Verified 03/27/21 11:47 nausea, shaking Sulfa (Sulfonamide AdvReac Intermediate rash Verified 03/27/21 11:47 Antibiotics) codeine AdvReac Unknown NAUSEA/VOMI Verified 03/27/21 11:47 TING chocolate Allergy Unknown severe Uncoded 08/18/20 15:35 headaches/vomiting Active Medications: Current Medications Generic Name Dose Route Start Last Admin Trade Name Freq PRN Reason Stop Dose Admin Acetaminophen 650 mg 04/04/21 23:10 Acetaminophen Supp 650 Mg Supp.Rect HI Q6H PRN Pain, Mild (Pain Scale 1-3) Amoxicillin/Clavulanate Potassium 500 mg 04/04/21 23:10 04/05/21 09:51 Amoxicillin/Potassium Clav 500 Mg Tablet PO 500 mg BID ADAM Administration Famotidine 40 mg 04/04/21 23:10 04/05/21 10:12 Famotidine 20 Mg Tablet PO 40 mg BID ADAM Administration Folic Acid 1 mg 04/05/21 09:00 04/05/21 09:50 Folic Acid 1 Mg Tablet PO 1 mg DAILY ADAM Administration Magnesium Oxide 800 mg 04/04/21 23:10 04/05/21 09:50 Magnesium Oxide 400 Mg Tablet PO 800 mg BID ADAM Administration Metoprolol Tartrate 12.5 mg 04/04/21 23:10 04/05/21 09:52 Metoprolol Tartrate 12.5 Mg Halftab PO 12.5 mg BID ADAM Administration Protocol Mirabegron 25 mg 04/04/21 23:10 04/04/21 23:51 Mirabegron 25 Mg Tab.Er.24h PO Not Given BEDTIME [facility] Pharmacy Consult 1 each 04/04/21 16:45 Consult Rx Perform Med Rec MISCELLANE ONCE PRN Consult order Quetiapine Fumarate 25 mg 04/04/21 23:10 04/05/21 09:50 Quetiapine Fumarate 25 Mg Tablet PO 25 mg BID [facility] Administration Sodium Chloride 3 ml 04/05/21 00:00 04/05/21 09:53 0.9 % Sodium Chloride Flush 3 Ml Syringe IVFLUSH 3 ml QSHIFT [facility] Administration Warfarin Sodium 2 mg 04/05/21 18:00 Warfarin Sodium 2 Mg Tablet PO SUTUTHSA@1800 [facility] Warfarin Sodium 4 mg 04/06/21 18:00 Warfarin Sodium 4 Mg Tablet PO MOWEFR@1800 [facility] Home Medications Medication Instructions Recorded Confirmed Last Taken Type famotidine 20 mg tablet 40 mg PO BID tab 09/11/20 04/04/21 10/05/20 17:45 History folic acid 1 mg PO DAILY 10/06/20 04/04/21 Unknown History warfarin 2 mg PO SUTUTHSA@1800 10/06/20 04/04/21 Unknown History warfarin 4 mg PO MOWEFR@1800 10/06/20 04/04/21 Unknown History magnesium oxide 800 mg PO BID tab 02/02/21 04/04/21 Unknown History metoprolol tartrate 25 mg tablet 12.5 mg PO BID tab 02/24/21 04/04/21 Unknown History amoxicillin-pot clavulanate 1 tab PO BID 04/04/21 04/04/21 Unknown History mirabegron [Myrbetriq] 25 mg PO BEDTIME 04/04/21 04/04/21 Unknown History quetiapine 25 mg PO BID 04/04/21 04/04/21 Unknown History Physical Exam Vital Signs: Vital Signs: Last Vital Signs Temp 97.6 F 04/05/21 13:33 Pulse 103 H 04/05/21 13:33 Resp 15 04/05/21 13:33 BP 142/77 H 04/05/21 13:33 Pulse Ox 97 04/05/21 13:33 Body Mass Index 24.1 She was alert awake with normal spontaneity of speech fluency comprehension and wake affect. There was mild left-sided central facial weakness and mild alnvua-cn-[id number] ataxia on left side. Visual hurst are full to confrontation. Otherwise there was no significant finding on exam. Results Labs CBC & Chem 7: 04/04/21 11:38 04/05/21 06:55 Labs: BMP 04/05/21 06:55 Sodium 143 Potassium 3.3 Chloride 109 H Carbon Dioxide 26 BUN 10 Creatinine 0.79 Calcium 8.1 L Urine 04/04/21 Range/Units 14:48 Urine Color YELLOW Urine Appearance CLEAR Urine pH 6.0 (5.0-8.0) Ur Specific [place] <= 1.005 (1.005-1.025) Urine Protein NEG (NEG-TRACE) MG/DL Urine Glucose (UA) NEG (NEG) MG/DL Her head CT revealed moderate to severe bilateral frontoparietal cortical atrophy. Microbiology Microbiology Results: Microbiology 04/04/21 11:38 Blood - Venous Blood Culture - Preliminary No growth after 24 hours. Assessment and Plan (1) Cerebral infarction: Status: Acute She has mild left central facial and mild left arm ataxia suggestive of an acute ischemic lesion, if these findings are new. An MRI brain is recommended to define it further. Until then baby aspirin daily blood pressure control and statin should continue. We should also obtain CTA of brain and neck. (2) Dementia: Status: Acute She has significant cortical pathology that would affect her memory personality and ability to make decisions. Procedures Date of Service Date of Service: 04/05/21
[2021-04-05 15:42] VITALS: BP 120/60; PULSE 96; RESP 16; TEMP 36.8; O2SAT 96
--- NOTE | 2021-04-05 15:54 | MHC.CM.ED ---
PATIENT IS IN ROOM WITH HER HCP/SPOUSE SHE GIVES PERMISSION FOR THIS FEEDER CATCHER TO ALSO SPEAK WITH SPOUSE. HCP ON FILE AND VERIFIED PATIENT IS ACTIVE WITH [facility]. REFERRAL PLACED FOR AGENCY TO FOLLOW. SHE USES A CANE AND A WALKER. RN VISITS ARE FOR INR CHECKS AND SHE RECEIVES PHYSICAL THERAPY. PATIENT WAS RECENTLY AT [facility]. SHE HAS RECEIVED BOTH DOSES OF HER PFIZER COVID VACCINE IN JANUARY 2021. IMM 04/05 IN CHART.
[2021-04-05] MEDS: iohexoL 350 MG/ML 100 ML INFUS..BTL IV (17:22)
[2021-04-05 19:24] VITALS: BP 141/69; PULSE 98; RESP 16; TEMP 36.7
[2021-04-05 21:45] VITALS: BP 145/74; PULSE 93
[2021-04-05] MEDS: Mirabegron 25 MG TAB.ER.24H PO (21:45)
--- NOTE | 2021-04-05 22:49 | PC.NURSE ---
PATIENT IS ALERT AND ORIENTED, BREATHING IS EVEN AND UNLABORED SKIN IS P,D,W. NO FACIAL DROOP, NEUROS WITHIN BASELINE.
[2021-04-06] VITALS (11 sets, daily range): BP systolic 128–165; BP diastolic 62–91; PULSE 87–108; RESP 13–18; TEMP 36.2–37.1; O2SAT 97–100
[2021-04-06] MEDS: Metoprolol Tartrate 12.5 MG HALFTAB PO ×2 (08:49→20:17)
[2021-04-06] MEDS: Magnesium Oxide 400 MG TABLET 800 MG PO ×2 (08:49→20:16)
[2021-04-06] MEDS: Folic Acid 1 MG TABLET PO (08:49)
[2021-04-06] MEDS: Famotidine 20 MG TABLET 40 MG PO ×2 (08:49→20:17)
[2021-04-06] MEDS: QUEtiapine Fumarate 25 MG TABLET PO ×2 (08:49→20:17)
[2021-04-06] MEDS: Amoxicillin/Potassium Clav 500 MG TABLET PO ×2 (08:49→20:17)
[2021-04-06] MEDS: 0.9 % Sodium Chloride Flush 3 ML SYRINGE IVFLUSH ×3 (08:50→20:17)
--- NOTE | 2021-04-06 08:55 | PC.NURSE ---
PT WAITING ON BED ASSIGNMENT, AM MEDS GIVEN PT AMB OOB WITH STEADY GAIT HAS BEEN EVALUATED BY PT, PHLEB AT BEDSIDE DOING LABS AT THIS TIME, PT WILL BE TRANSFERED TO FLOOR AFTER
[2021-04-06 09:26] LABS: Prothrombin Time 23.7 SEC (10.8-13.0)
--- NOTE | 2021-04-06 15:29 | MHC.CM.PN ---
[facility] overflow: Pt is s/p CVA: seen by PT who recommended LONG-TERM: pt resides at home with spouse and is active with [facility]. LONG-TERM placement is not a d/c plan that can be arranged by hospital CM as it entails considerable financial criteria and little emphasis on medical needs. D/C plan at this time is for a return to home with existing services. CM to follow for any changes.
--- NOTE | 2021-04-06 16:43 | PC.NURSE ---
Addendum entered by Ying Merchant RN 04/06/21 16:57: regarding neurods - pt did mention she had difficulty finding words at times when she spoke with MD. This Rn didnt see evidence of that at this time. will monitor and report off Original Note: Pt pleasant most of the day, at bedside until ~1600 Pt alert to person, place, self and date. Gets disoriented about time of day and can be forgetful at times. When trying to talk to pt about forgetfulness/ remind her /reorient her she can get slightly irritated and defensive. Therapeutic communication tends to calm her down. All other neuros remain in tact at this time. Equal strength bilat extremities , PERRLA, pt mostly steady on feet - pt states uses a cane at home at times. Has used bedside commode w/stand by assist- pt currently having watery BMs. Awaiting another to send for a stool sample. Lungs have somke fine crackles at bases, pt denying any SOB, cough or discomfort. Awaiting MRI machine to be ready to send for MRI. Pt and aware of plan. High fall risk measures including telesitter remain in place at this time.
[2021-04-06] MEDS: Warfarin Sodium 4 MG TABLET PO (17:02)
[2021-04-06] MEDS: Mirabegron 25 MG TAB.ER.24H PO (20:17)
[2021-04-07 03:05] VITALS: BP 139/82; PULSE 90; RESP 18; TEMP 36.1; O2SAT 98
--- NOTE | 2021-04-07 05:18 | PC.NURSE ---
Pt still confused throughout the night. ?Hallucinations, pt stated she heard gunshots outside and saw police car lights flashing. She also said she saw her son in law running down the [place]. Pt reoriented to place and situation successfully but forgets soon after. She is steady on her feet but deemed high fall risk based on her confusion, she's refusing to wear red high fall risk socks. Pt was also found to be turning off her bed alarm, she was reminded not to do so for her safety. Telesitter also in place.
[2021-04-07 07:04] VITALS: BP 158/79; PULSE 98; RESP 20; TEMP 36.6; O2SAT 97
[2021-04-07] MEDS: QUEtiapine Fumarate 25 MG TABLET PO ×2 (08:20→21:42)
[2021-04-07] MEDS: Amoxicillin/Potassium Clav 500 MG TABLET PO ×2 (08:20→21:43)
[2021-04-07] MEDS: Famotidine 20 MG TABLET 40 MG PO ×2 (08:20→21:42)
[2021-04-07] MEDS: Magnesium Oxide 400 MG TABLET 800 MG PO ×2 (08:20→21:42)
[2021-04-07] MEDS: Metoprolol Tartrate 12.5 MG HALFTAB PO ×2 (08:20→21:43)
[2021-04-07] MEDS: Folic Acid 1 MG TABLET PO (08:21)
[2021-04-07] MEDS: 0.9 % Sodium Chloride Flush 3 ML SYRINGE IVFLUSH ×2 (08:21→16:29)
[2021-04-07 10:52] VITALS: BP 137/66; PULSE 89; RESP 20; TEMP 36.6; O2SAT 95
--- NOTE | 2021-04-07 12:39 | HO.PM.IMPN ---
Subjective Subjective Date of Service: 04/07/21 Interval History: Seen in follow-up for slurred speech. TIA versus stroke. Confusion. She remains confused, confabulating and at time reported to halucinate. MRI was don't and show no acute stroke Review of Systems Gen: no fever Resp: no sob, no cough CV: no chest, no HAIR, no leg edema GI: No n/v, no abd pain Neuro: memory impairment Physical Exam Vital Signs: Vital Signs: Last Vital Signs Temp 98 F 04/07/21 10:52 Pulse 89 04/07/21 10:52 Resp 20 04/07/21 10:52 BP 137/66 04/07/21 10:52 Pulse Ox 95 04/07/21 10:52 Body Mass Index 24.1 Const: Other: Constitutional Awake and Alert, No apparent distress Neck Supple, No lymphadenopathy Cardiovascular RRR, No M/R/G, S1 S2, No S3 S4, No pedal edema Respiratory Lungs clear, No respiratory distress Gastrointestinal Non tender, Non-distended Skin No rash Neurological she oriented to self, place and time, no word finding difficulty anyjmore. No focal neuro deficit Psychological Apropriate, but angry very easily Objective Data Current Medications Generic Name Dose Route Start Last Admin Trade Name Freq PRN Reason Stop Dose Admin Acetaminophen 650 mg 04/04/21 23:10 Acetaminophen Supp 650 Mg Supp.Rect OK Q6H PRN Pain, Mild (Pain Scale 1-3) Amoxicillin/Clavulanate Potassium 500 mg 04/04/21 23:10 04/07/21 08:20 Amoxicillin/Potassium Clav 500 Mg Tablet PO 500 mg BID ADAM Administration Famotidine 40 mg 04/04/21 23:10 04/07/21 08:20 Famotidine 20 Mg Tablet PO 40 mg BID ADAM Administration Folic Acid 1 mg 04/05/21 09:00 04/07/21 08:21 Folic Acid 1 Mg Tablet PO 1 mg DAILY ADAM Administration Magnesium Oxide 800 mg 04/04/21 23:10 04/07/21 08:20 Magnesium Oxide 400 Mg Tablet PO 800 mg BID ADAM Administration Metoprolol Tartrate 12.5 mg 04/04/21 23:10 04/07/21 08:20 Metoprolol Tartrate 12.5 Mg Halftab PO 12.5 mg BID ADAM Administration Protocol Mirabegron 25 mg 04/04/21 23:10 04/06/21 20:17 Mirabegron 25 Mg Tab.Er.24h PO 25 mg BEDTIME [facility] Administration Pharmacy Consult 1 each 04/04/21 16:45 Consult Rx Perform Med Rec MISCELLANE ONCE PRN Consult order Quetiapine Fumarate 25 mg 04/04/21 23:10 04/07/21 08:20 Quetiapine Fumarate 25 Mg Tablet PO 25 mg BID [facility] Administration Sodium Chloride 3 ml 04/05/21 00:00 04/07/21 08:21 0.9 % Sodium Chloride Flush 3 Ml Syringe IVFLUSH 3 ml QSHIFT [facility] Administration Warfarin Sodium 2 mg 04/05/21 18:00 Warfarin Sodium 2 Mg Tablet PO SUTUTHSA@1800 [facility] Warfarin Sodium 4 mg 04/06/21 18:00 04/06/21 17:02 Warfarin Sodium 4 Mg Tablet PO 4 mg MOWEFR@1800 [facility] Administration Labs CBC & Chem 7: 04/04/21 11:38 04/05/21 06:[address] scan - chest: Radiologist's impression: Impressions Brain MRI 04/07/21 08:05 IMPRESSION: - No acute intracranial findings. No acute infarcts. - There is global cerebral volume loss and there is mild to moderate chronic microangiopathy. CT scan - abdomen: Radiologist's impression: Impressions Brain MRI 04/07/21 08:05 IMPRESSION: - No acute intracranial findings. No acute infarcts. - There is global cerebral volume loss and there is mild to moderate chronic microangiopathy. CT scan - head: Radiologist's impression: Impressions Brain MRI 04/07/21 08:05 IMPRESSION: - No acute intracranial findings. No acute infarcts. - There is global cerebral volume loss and there is mild to moderate chronic microangiopathy. Microbiology Microbiology Results: Microbiology 04/04/21 14:48 Blood Culture - Preliminary Blood - Venous No growth after 48 hours. 04/04/21 11:38 Blood Culture - Preliminary Blood - Venous No growth after 48 hours. Assessment and Plan (1) Slurred speech: Status: Acute (2) TIA (transient ischemic attack): Status: Acute (3) Hypokalemia: Status: Acute (4) Lactic acidosis: Status: Acute (5) Protein calorie malnutrition: Status: Acute Assessment and Plan: 80 year old female with slurness of speech with concern for possible stroke vs TI vs some metabolic encephalopathy Slur speech r/o stroke, was transient -MRI show no acute stroke, just a lot of cortical changes that can affect memory and ability to make sound decision--per glenn -I think present confusion, hallucination is part of dementia -will get Psych consult Hypokalemia--corrected, replaced orally Lactic acidosis--not due to sepsis, hydrate and recheck h/o PE/DVT continue coumadin 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
--- NOTE | 2021-04-07 13:14 | MHC.CM.PN ---
spoke with pt and her who is now agreeable to rehab referrals /dementia units he requests local facilities pt has been at [facility] in the past
[2021-04-07 13:37] LABS: INTERNATIONAL NORM RATIO 1.8 (0.9-1.1); Prothrombin Time 21.6 SEC (10.8-13.0)
[2021-04-07 15:09] VITALS: BP 140/70; PULSE 95; RESP 15; TEMP 36.6; O2SAT 99
[2021-04-07] MEDS: Warfarin Sodium 2 MG TABLET PO (18:10)
[2021-04-07 19:44] VITALS: BP 142/80; PULSE 97; RESP 18; TEMP 36.9; O2SAT 100
[2021-04-07 21:43] VITALS: BP 142/80; PULSE 97
[2021-04-07] MEDS: Mirabegron 25 MG TAB.ER.24H PO (21:43)
[2021-04-08] VITALS (14 sets, daily range): BP systolic 121–156; BP diastolic 58–88; PULSE 78–98; RESP 14–22; TEMP 36–36.6; O2SAT 94–100
--- NOTE | 2021-04-08 | EEG_ITS ---
This is a 16-channel EEG with an EKG lead. The patient is reported sleeping during the tracing. Background EEG rhythm is 7 to 8 hertz, 5 to 30 microvolt posteriorly, lower amplitude fast anteriorly. Photic stimulation and hyperventilation were not performed. No obvious sharp wave spikes or paroxysmal tendency or asymmetry noted. Cardiac lead did not reveal any significant abnormality. IMPRESSION: Mild slowing with no evidence of seizure disorder. MD TINO Townsend/JOSÉ MIGUEL / [id number]
[2021-04-08] MEDS: 0.9 % Sodium Chloride Flush 3 ML SYRINGE IVFLUSH ×2 (00:14→08:15)
[2021-04-08] MEDS: Haloperidol Lactate 5 MG/ML VIAL 2.5 MG IVPUSH (01:06)
--- NOTE | 2021-04-08 04:32 | MHC.PIE ---
0030 p - pt became restless, confused, thinking she's on a boat, wants to go for walk, not interested in sleep. ambulated in [place] 1stamdby assist around block x3 in halls then began attempting in other room, attempt back to room unsuccessful, pt wants to get on elevator refuses to cooperate in going back to room, call to security and supv & Dr. Geiger i - pt eventually back in room, medical restraint ordered per policy by Dr. Geiger and haldol 2.5mg iv given, pt to recliner for 1/2 hr sleeping then up with sitter in room & independently went to bed with steady gait. dr. geiger over to see pt e - continueto monitor
[2021-04-08 07:16] LABS: INTERNATIONAL NORM RATIO 1.9 (0.9-1.1); Prothrombin Time 22.3 SEC (10.8-13.0)
[2021-04-08] MEDS: Magnesium Oxide 400 MG TABLET 800 MG PO ×2 (08:15→21:00)
[2021-04-08] MEDS: Metoprolol Tartrate 12.5 MG HALFTAB PO ×2 (08:15→21:01)
[2021-04-08] MEDS: Folic Acid 1 MG TABLET PO (08:15)
[2021-04-08] MEDS: QUEtiapine Fumarate 25 MG TABLET PO ×2 (08:15→21:00)
[2021-04-08] MEDS: Famotidine 20 MG TABLET 40 MG PO ×2 (08:15→21:01)
[2021-04-08] MEDS: Amoxicillin/Potassium Clav 500 MG TABLET PO ×2 (08:15→21:00)
--- NOTE | 2021-04-08 09:20 | ECG_ITS ---
Test Reason : BRADYCARDIA Blood Pressure : / mmHG Vent. Rate : 081 BPM Atrial Rate : 081 BPM P-R Int : 164 ms QRS Dur : 096 ms QT Int : 434 ms P-R-T Axes : 059 024 049 degrees QTc Int : 504 ms Normal sinus rhythm Prolonged QT Abnormal ECG When compared with ECG of 04-APR-2021 12:56, No significant change was found Referred By: [facility] Electronically Signed By:WESTON AMARO
--- NOTE | 2021-04-08 09:27 | HO.PM.IMPN ---
Subjective Subjective Date of Service: 04/08/21 Interval History: Seen in follow-up for slurred speech. TIA versus stroke, stroke work up was negative. Remains intermittently confused. This morning while on toilet had bradycardia in 40s, and unresponsive, this was transient, HR is up and Blood pressure within normal.. She seems somehow confused still but is responding Review of Systems Gen: no fever Resp: no sob, no cough CV: no chest, no HAIR, no leg edema GI: No n/v, no abd pain Neuro: memory impairment Physical Exam Vital Signs: Vital Signs: Last Vital Signs Temp 97.5 F 04/08/21 07:23 Pulse 78 04/08/21 07:23 Resp 18 04/08/21 07:23 BP 133/68 04/08/21 07:23 Pulse Ox 97 04/08/21 07:23 Body Mass Index 24.1 Const: Other: Constitutional Awake and Alert, No apparent distress Neck Supple, No lymphadenopathy Cardiovascular RRR, No M/R/G, S1 S2, No S3 S4, No pedal edema Respiratory Lungs clear, No respiratory distress Gastrointestinal Non tender, Non-distended Skin No rash Neurological she oriented to self, place and time, no word finding difficulty anyjmore. No focal neuro deficit Psychological Apropriate, but angry very easily Objective Data Current Medications Generic Name Dose Route Start Last Admin Trade Name Freq PRN Reason Stop Dose Admin Acetaminophen 650 mg 04/04/21 23:10 Acetaminophen Supp 650 Mg Supp.Rect AR Q6H PRN Pain, Mild (Pain Scale 1-3) Amoxicillin/Clavulanate Potassium 500 mg 04/04/21 23:10 04/08/21 08:15 Amoxicillin/Potassium Clav 500 Mg Tablet PO 500 mg BID ADAM Administration Famotidine 40 mg 04/04/21 23:10 04/08/21 08:15 Famotidine 20 Mg Tablet PO 40 mg BID ADAM Administration Folic Acid 1 mg 04/05/21 09:00 04/08/21 08:15 Folic Acid 1 Mg Tablet PO 1 mg DAILY ADAM Administration Sodium Chloride 1,000 mls @ 100 mls/hr 04/08/21 09:30 Ns IVCONT .Q10H ADAM Magnesium Oxide 800 mg 04/04/21 23:10 04/08/21 08:15 Magnesium Oxide 400 Mg Tablet PO 800 mg BID ADAM Administration Metoprolol Tartrate 12.5 mg 04/04/21 23:10 04/08/21 08:15 Metoprolol Tartrate 12.5 Mg Halftab PO 12.5 mg BID ADAM Administration Protocol Mirabegron 25 mg 04/04/21 23:10 04/07/21 21:43 Mirabegron 25 Mg Tab.Er.24h PO 25 mg BEDTIME ADAM Administration Pharmacy Consult 1 each 04/04/21 16:45 Consult Rx Perform Med Rec MISCELLANE ONCE PRN Consult order Quetiapine Fumarate 25 mg 04/04/21 23:10 04/08/21 08:15 Quetiapine Fumarate 25 Mg Tablet PO 25 mg BID ADAM Administration Sodium Chloride 3 ml 04/05/21 00:00 04/08/21 08:15 0.9 % Sodium Chloride Flush 3 Ml Syringe IVFLUSH 3 ml QSHIFT ADAM Administration Warfarin Sodium 2 mg 04/05/21 18:00 04/07/21 18:10 Warfarin Sodium 2 Mg Tablet PO 2 mg SUTUTHSA@1800 [facility] Administration Warfarin Sodium 4 mg 04/06/21 18:00 04/06/21 17:02 Warfarin Sodium 4 Mg Tablet PO 4 mg MOWEFR@1800 ADAM Administration Labs CBC & Chem 7: 04/04/21 11:38 04/05/21 06:55 Labs: Laboratory Results - last 24 hr 04/07/21 04/08/21 12:14 05:57 PT 21.6 H 22.3 H INR 1.8 H 1.9 H Quality Stroke Does the patient have a stroke diagnosis?: No VTE Prior VTE?: Yes VTE Risk Level:: Medical - moderate - high VTE Device Contraindication: N/A - Device Ordered VTE Drug Contraindication: N/A - Med Ordered Assessment and Plan (1) Slurred speech: Status: Acute (2) TIA (transient ischemic attack): Status: Acute (3) Hypokalemia: Status: Acute (4) Lactic acidosis: Status: Acute (5) Protein calorie malnutrition: Status: Acute Assessment and Plan: 80 year old female with slurness of speech with concern for possible stroke vs TI vs some metabolic encephalopathy Slur speech r/o stroke, was transient, stroke work up negative with CT and MRI -MRI show no acute stroke, just a lot of cortical changes that can affect memory and ability to make sound decision--per neuro -I think present confusion, hallucination is part of dementia -will get Psych consult Syncope this morning, consistent with Vaso vagal episode, ECG looks fine, checking routine labs, CBC, BMP, mag and troponin, Hydrate Hypokalemia--corrected, replaced orally Lactic acidosis--not due to sepsis, hydrate and recheck h/o PE/DVT continue coumadin Recurrent UTI--on Macrobid, not good for old peopl, hold, continue Amx, no acute UTI Dementia with agiation Myrbetriq, Seroquel Diarrhea--check cdif, immodium DVT prophylaxis--coumadin Full code, discussed with at bedside
[2021-04-08] MEDS: 0.9 % Sodium Chloride 1,000 ML 100 ML IVCONT ×2 (09:35→18:26)
[2021-04-08 10:13] LABS: Hematocrit 35.1 % (37-47); Hemoglobin 11.3 g/dl (12.0-16.0); Mean Corpuscular HGB Conc 32.2 g/dl (31.0-35.0); Mean Corpuscular Hemoglobin 31.9 pg (27.0-33.0); Mean Corpuscular Volume 99.2 fL (80-98); Mean Platelet Volume 10.2 fL (9.4-12.3); Platelet Count 162 X10*3/uL (160-400); Red Blood Count 3.54 X10*6/uL (4.20-5.50); Red Cell Distribution Width 15.2 % (11.0-16.0); White Blood Count 4.5 X10*3/uL (4.8-10.8)
[2021-04-08 10:46] LABS: Troponin-I High Sensitivity < 3.5 ng/L (<3.5-17.0)
[2021-04-08 10:48] LABS: Anion Gap 12 (12-20); Blood Urea Nitrogen 13 mg/dL (9-16); Calcium 8.8 mg/dL (8.4-10.2); Carbon Dioxide 26 mmol/L (22-29); Chloride 105 mmol/L (96-108); Creatinine Clr Calc Pharmacy 46.3; Estimated Glomerular Filt Rate > 60; Glucose Random 138 mg/dL (60-115); Potassium 3.4 mmol/L (3.3-5.1); Sodium 140 mmol/L (135-145)
--- NOTE | 2021-04-08 11:23 | MHC.PIE ---
P- At around 0905, while accompanied by PREFLIGHT INSPECTOR, Pt had a syncope episode on the toilet due to a vasovagal response. This RN assessed pt who was responsive to a sternal rub between moments of loss of consciousness. Pt then went bradycardic to the 40's. I- Rapid response called. EKG done, NS IVF started at 100ml/hr, and blood work drawn. VSS. E- Pt comfortably asleep, arousable to name and touch. Oriented to person, place, and time. Will continue to monitor.
[2021-04-08] MEDS: Warfarin Sodium 4 MG TABLET PO (18:24)
[2021-04-08] MEDS: Mirabegron 25 MG TAB.ER.24H PO (21:00)
[2021-04-09] VITALS (8 sets, daily range): BP systolic 147–165; BP diastolic 68–87; PULSE 83–94; RESP 16–18; TEMP 36.1–36.5; O2SAT 98–99
[2021-04-09] MEDS: 0.9 % Sodium Chloride 1,000 ML 100 ML IVCONT (03:35)
[2021-04-09 05:01] LABS: INTERNATIONAL NORM RATIO 1.7 (0.9-1.1); Prothrombin Time 20.8 SEC (10.8-13.0)
--- NOTE | 2021-04-09 05:15 | PC.NURSE ---
Pt had 2 loose BMs, unable to collect stool sample-contaminated with urine. Stage 1 noted to right buttocks, area red and non blanchable. Barrier cream applied, repo q2. Picture in pt chart.
[2021-04-09] MEDS: Amoxicillin/Potassium Clav 500 MG TABLET PO ×2 (08:03→20:14)
[2021-04-09] MEDS: Metoprolol Tartrate 12.5 MG HALFTAB PO ×2 (08:03→20:14)
[2021-04-09] MEDS: Magnesium Oxide 400 MG TABLET 800 MG PO ×2 (08:03→20:13)
[2021-04-09] MEDS: QUEtiapine Fumarate 25 MG TABLET PO ×2 (08:03→20:14)
[2021-04-09] MEDS: Famotidine 20 MG TABLET 40 MG PO ×2 (08:03→20:14)
[2021-04-09] MEDS: Folic Acid 1 MG TABLET PO (08:03)
--- NOTE | 2021-04-09 09:10 | HO.PM.IMPN ---
Subjective Subjective Date of Service: 04/09/21 Interval History: diarrahe , cofusion Review of Systems Confusion seems to be slightly improving than before, denies any chest pain or shortness of breath but still has diarrhea. Denies any new syncopal episode. No fevers, no urinary complaints today. Physical Exam Vital Signs: Vital Signs: Last Vital Signs Temp 97.6 F 04/09/21 07:59 Pulse 87 04/09/21 07:59 Resp 16 04/09/21 07:59 BP 152/77 H 04/09/21 07:59 Pulse Ox 98 04/09/21 07:59 Body Mass Index 24.1 Physical exam: Cvs: rrr, [id number] , no murmur res: clear to auscultation ,no rhonchii or wheezing abd: no rebound or guarding ,nt, bs present. ext pulses present , no cyanosis neuro: axo2, nonfocal. Objective Data Current Medications Generic Name Dose Route Start Last Admin Trade Name Freq PRN Reason Stop Dose Admin Acetaminophen 650 mg 04/04/21 23:10 Acetaminophen Supp 650 Mg Supp.Rect [place] Q6H PRN Pain, Mild (Pain Scale 1-3) Amoxicillin/Clavulanate Potassium 500 mg 04/04/21 23:10 04/09/21 08:03 Amoxicillin/Potassium Clav 500 Mg Tablet PO 500 mg BID ADAM Administration Famotidine 40 mg 04/04/21 23:10 04/09/21 08:03 Famotidine 20 Mg Tablet PO 40 mg BID ADAM Administration Folic Acid 1 mg 04/05/21 09:00 04/09/21 08:03 Folic Acid 1 Mg Tablet PO 1 mg DAILY ADAM Administration Sodium Chloride 1,000 mls @ 100 mls/hr 04/08/21 09:30 04/09/21 03:35 Ns IVCONT 100 mls/hr .Q10H ADAM Administration Sodium Chloride 1,000 mls @ 100 mls/hr 04/08/21 09:45 04/09/21 04:51 Ns IVCONT Not Given .Q10H ADAM Magnesium Oxide 800 mg 04/04/21 23:10 04/09/21 08:03 Magnesium Oxide 400 Mg Tablet PO 800 mg BID ADAM Administration Metoprolol Tartrate 12.5 mg 04/04/21 23:10 04/09/21 08:03 Metoprolol Tartrate 12.5 Mg Halftab PO 12.5 mg BID [facility] Administration Protocol Mirabegron 25 mg 04/04/21 23:10 04/08/21 21:00 Mirabegron 25 Mg Tab.Er.24h PO 25 mg BEDTIME [facility] Administration Pharmacy Consult 1 each 04/04/21 16:45 Consult Rx Perform Med Rec MISCELLANE ONCE PRN Consult order Quetiapine Fumarate 25 mg 04/04/21 23:10 04/09/21 08:03 Quetiapine Fumarate 25 Mg Tablet PO 25 mg BID [facility] Administration Sodium Chloride 3 ml 04/05/21 00:00 04/09/21 08:02 0.9 % Sodium Chloride Flush 3 Ml Syringe IVFLUSH Not Given QSHIFT [facility] Warfarin Sodium 4 mg 04/06/21 18:00 04/08/21 18:24 Warfarin Sodium 4 Mg Tablet PO 4 mg MOWEFR@1800 [facility] Administration Warfarin Sodium 3 mg 04/09/21 18:00 Warfarin Sodium 3 Mg Tablet PO SUTUTHSA@1800 [facility] Labs CBC & Chem 7: 04/08/21 09:46 04/08/21 09:46 Labs: Laboratory Results - last 24 hr 04/08/21 04/08/21 04/08/21 09:46 09:46 09:46 WBC 4.5 L RBC 3.54 L Hgb 11.3 L Hct 35.1 L MCV 99.2 H MCH 31.9 MCHC 32.2 RDW 15.2 Plt Count 162 MPV 10.2 Absolute Nucleated RBC 0.000 Nucleated RBC % (auto) 0.0 PT INR Sodium 140 Potassium 3.4 Chloride 105 Carbon Dioxide 26 Anion Gap 12 BUN 13 Creatinine 0.90 Estim Creat Clear Calc 46.3 Estimated GFR > 60 Random Glucose 138 H D Calcium 8.8 D Magnesium 2.0 Troponin I High Sens < 3.5 04/09/21 04:20 WBC RBC Hgb Hct MCV MCH MCHC RDW Plt Count MPV Absolute Nucleated RBC Nucleated RBC % (auto) PT 20.8 H INR 1.7 H Sodium Potassium Chloride Carbon Dioxide Anion Gap BUN Creatinine Estim Creat Clear Calc Estimated GFR Random Glucose Calcium Magnesium Troponin I High Sens Quality Stroke Does the patient have a stroke diagnosis?: No VTE Prior VTE?: Yes VTE Risk Level:: Medical - moderate - high VTE Device Contraindication: N/A - Device Ordered VTE Drug Contraindication: N/A - Med Ordered Assessment and Plan (1) Slurred speech: Status: Acute (2) TIA (transient ischemic attack): Status: Acute (3) Hypokalemia: Status: Acute (4) Lactic acidosis: Status: Acute (5) Protein calorie malnutrition: Status: Acute Assessment and Plan: Hospital Day:5. 80 year old female with slurness of speech with concern for possible stroke vs TI vs some metabolic encephalopathy 1.Slur speech r/o stroke, was transient, stroke work up negative with CT and MRI -MRI show no acute stroke, just a lot of cortical changes that can affect memory and ability to make sound decision--per neuro -I think present confusion, hallucination is part of dementia, ? also on antibiotics due to uti -may be uti also contributin eeg DONE -results pending -will get Psych consult still pending 2.Syncope yesterday -probable Vaso vagal episode, no new event overnight qtc on ekg was 504ms yesterday , her prevuios ekg from this year also shows qtc near 490-495ms but reviewed on tele today qtc -is 360 msec added potassium replacement due to boderline . 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
[2021-04-09 14:02] LABS: Neutrophils Absolute Auto 3.8 X10*3/uL (2.0-8.3)
[2021-04-09] MEDS: Potassium Chloride Packet 20 MEQ PACKET PO (14:31)
--- NOTE | 2021-04-09 18:24 | PM.PSYCN ---
History of Present Illness Date of Service: 04/09/21 Chief Complaint: Slur speech, strove vs tia, low potassium, Reason for Consult: AMS Requesting physician: Renetta Raymundo Discussed with referring provider: Yes Sources of Information: patient interviewed, chart reviewed and crisis/core team assessment reviewed Additional Sources of Information: HPI Narrative: Mrs. Fox is a 80 year-old female, admitted with AMS, diarrhea. She has been receiving treatment here for a UTI. She has been confused, with hallucinations at times, poor memory, and some delusional thought noted. She was seen by neurology, who noted that she has significant cortical pathology that would affect her memory personality and ability to make decisions. Patient has a history of multiple medical issues, and has had surgery within the past year, a TKR. She was also hospitalized recently for UTI. During that stay, her mental state had progressed to delirium. She was discharged to a long term facility at that time. She was discharged home from there. reports that after she came home from [facility], she did well for approximately 1 1/2 months. She has been able to clean at home, and her ADL's were appropriate. She would cook, but sometimes fall asleep while stove on. He has been providing supervision, as they have no in-home services. They have [facility], but that is for medications and lab work. He says that one day recently he was taking a shower, and she had wandered out of the house. He says he found her at the neighbor's home. Psychiatry was asked to meet with patient regarding mental status, dementia, and possible delirium. was present in room. She was well groomed, in no apparent distress. She appears well nourished. A&O X 2. Able to say she is at [facility]. She was able to answer some questions correctly. However, she appeared to have much difficulty regarding situation, and some delusional thought was evident. Review of Systems Constitutional: Reports as per HPI and Reports no additional constitutional complaints Eyes: Reports as per HPI and Reports no additional eye complaints Reports Normal hearing present Genitourinary: Reports no additional female genitourinary complaints Musculoskeletal: Reports no additional musculoskeletal complaints Reports Normal hearing present [facility] Medical History B12 deficiency Breast cancer Fatty liver, alcoholic GERD (gastroesophageal reflux disease) History of alcohol use History of pulmonary embolism History of right breast cancer HTN (hypertension) Hx of deep venous thrombosis Hx of hypercalcemia Hx of metabolic acidosis Hx of tuberculosis Hypomagnesemia Impaired fasting glucose Irritable bowel syndrome Osteoarthritis of left knee Osteoporosis Peripheral neuropathy Pernicious anemia Thrombocytopenia Surgical History H/O right mastectomy History of appendectomy History of arthroplasty of left knee History of cataract surgery History of cystoscopy History of esophagogastroduodenoscopy (EGD) History of evacuation of hematoma History of knee replacement procedure of right knee History of left knee surgery History of lumpectomy of right breast History of tonsillectomy Hx of adenoidectomy Hx of colonoscopy S/P SASHA-BSO (total abdominal hysterectomy and bilateral salpingo-oophorectomy) Diagnostics Vital Signs (24Hr): Vital Signs - 24 hr 04/08/21 19:18 04/08/21 21:01 04/08/21 23:06 Temperature 97.9 F 97.0 F Pulse Rate 88 96 84 Respiratory Rate 20 18 Blood Pressure 149/70 H 147/60 H 147/69 H Pulse Oximetry 98 94 04/09/21 03:44 04/09/21 07:59 04/09/21 10:01 Temperature 97.0 F 97.6 F Pulse Rate 83 87 87 Respiratory Rate 18 16 Blood Pressure 151/76 H 152/77 H 152/77 H Pulse Oximetry 99 98 98 04/09/21 11:48 04/09/21 15:00 Temperature 97.6 F 97.7 F Pulse Rate 84 92 Respiratory Rate 16 18 Blood Pressure 147/68 H 165/75 H Pulse Oximetry 98 98 Body Mass Index 24.1 Labs Results: 04/09/21 13:55 04/08/21 09:46 Labs: Laboratory Results - last 48 hr 04/08/21 04/08/21 04/08/21 05:57 09:46 09:46 WBC 4.5 L RBC 3.54 L Hgb 11.3 L Hct 35.1 L MCV 99.2 H MCH 31.9 MCHC 32.2 RDW 15.2 Plt Count 162 MPV 10.2 Absolute Neuts (auto) Absolute Nucleated RBC 0.000 Nucleated RBC % (auto) 0.0 PT 22.3 H INR 1.9 H Sodium 140 Potassium 3.4 Chloride 105 Carbon Dioxide 26 Anion Gap 12 BUN 13 Creatinine 0.90 Estim Creat Clear Calc 46.3 Estimated GFR > 60 Random Glucose 138 H D Calcium 8.8 D Magnesium 2.0 Troponin I High Sens 04/08/21 04/09/21 04/09/21 09:46 04:20 13:55 WBC 6.0 RBC Hgb Hct MCV MCH MCHC RDW Plt Count MPV Absolute Neuts (auto) 3.8 Absolute Nucleated RBC Nucleated RBC % (auto) PT 20.8 H INR 1.7 H Sodium Potassium Chloride Carbon Dioxide Anion Gap BUN Creatinine Estim Creat Clear Calc Estimated GFR Random Glucose Calcium Magnesium Troponin I High Sens < 3.5 Imaging Radiology Impressions: ITS Impressions Head CT 04/04/21 12:21 IMPRESSION: No acute intracranial pathology. Abdomen/Pelvis CT 04/04/21 12:22 IMPRESSION: Diffuse chronic interstitial lung disease and. No acute pneumonic consolidation seen. Evidence of previous right mastectomy. 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 I lateral extrarenal kidney pelvises without radiopaque urolith or hydronephrosis. No acute intra-abdominal process seen. Extensive postsurgical changes right pelvis. Chest CT 04/04/21 12:22 IMPRESSION: Diffuse chronic interstitial lung disease and. No acute pneumonic consolidation seen. Evidence of previous right mastectomy. 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 I lateral extrarenal kidney pelvises without radiopaque urolith or hydronephrosis. No acute intra-abdominal process seen. Extensive postsurgical changes right pelvis. Head/Neck CTA 04/05/21 17:25 IMPRESSION: CT head: No intracranial hemorrhage or large acute infarction. CTA neck: No hemodynamically significant stenosis in the major arteries of the neck. CTA head: No large vessel occlusion or significant stenosis within the intracranial circulation. Brain MRI 04/07/21 08:05 IMPRESSION: - No acute intracranial findings. No acute infarcts. - There is global cerebral volume loss and there is mild to moderate chronic microangiopathy. Mental Status Exam Mental Status Exam Patient Appearance: Well Grooomed Patient Orientation: Person and Place Level of Consciousness: Awake Patient Behavior: Anxious, Confused (confused at times. ) and Good Eye Contact Mood Description: Anxious and Apprehensive Affect Description: Suspicious, Anxious and Apprehensive Patient Cognition Impaired: Yes Ability to Follow Directions: Fair Speech Pattern: Clear Memory Description: Immediate Impaired, Recent Impaired and Working Impaired Hallucinations: None (none reported, but has had reported seeing another person with her when at home. ) Delusions: Present (believes her is trying to take away her money. ) Judgement: Poor Medications Medications Current Medications Generic Name Dose Route Start Last Admin Trade Name Freq PRN Reason Stop Dose Admin Acetaminophen 650 mg 04/04/21 23:10 Acetaminophen Supp 650 Mg Supp.Rect [place] Q6H PRN Pain, Mild (Pain Scale 1-3) Amoxicillin/Clavulanate Potassium 500 mg 04/04/21 23:10 04/09/21 08:03 Amoxicillin/Potassium Clav 500 Mg Tablet PO 500 mg BID ADAM Administration Famotidine 40 mg 04/04/21 23:10 04/09/21 08:03 Famotidine 20 Mg Tablet PO 40 mg BID ADAM Administration Folic Acid 1 mg 04/05/21 09:00 04/09/21 08:03 Folic Acid 1 Mg Tablet PO 1 mg DAILY ADAM Administration Sodium Chloride 1,000 mls @ 100 mls/hr 04/08/21 09:30 04/09/21 15:41 Ns IVCONT Not Given .Q10H ADAM Sodium Chloride 1,000 mls @ 100 mls/hr 04/08/21 09:45 04/09/21 15:41 Ns IVCONT Not Given .Q10H ADAM Loperamide HCl 2 mg 04/09/21 09:14 Loperamide Hcl 2 Mg Capsule PO Q6H PRN diarrhae Magnesium Oxide 800 mg 04/04/21 23:10 04/09/21 08:03 Magnesium Oxide 400 Mg Tablet PO 800 mg BID ADAM Administration Metoprolol Tartrate 12.5 mg 04/04/21 23:10 04/09/21 08:03 Metoprolol Tartrate 12.5 Mg Halftab PO 12.5 mg BID ADAM Administration Protocol Pharmacy Consult 1 each 04/04/21 16:45 Consult Rx Perform Med Rec MISCELLANE ONCE PRN Consult order Quetiapine Fumarate 25 mg 04/04/21 23:10 04/09/21 08:03 Quetiapine Fumarate 25 Mg Tablet PO 25 mg BID ADAM Administration Sodium Chloride 3 ml 04/05/21 00:00 04/09/21 15:41 0.9 % Sodium Chloride Flush 3 Ml Syringe IVFLUSH Not Given QSHIFT ADAM Warfarin Sodium 4 mg 04/06/21 18:00 04/08/21 18:24 Warfarin Sodium 4 Mg Tablet PO 4 mg MOWEFR@1800 [facility] Administration Warfarin Sodium 3 mg 04/09/21 18:00 Warfarin Sodium 3 Mg Tablet PO SUTUTHSA@1800 [facility] Allergies Allergies Allergy/AdvReac Type Severity Reaction Status Date / Time sulfamethoxazole Allergy Severe Itching Verified 03/27/21 11:53 [From Bactrim] trimethoprim [From Bactrim] Allergy Severe Itching Verified 03/27/21 11:53 cortisone [Cortisone] Allergy Mild PT STATES Verified 03/27/21 11:47 IT COULD AFFECT HS TB CYSTALS IN,LUNG prochlorperazine Allergy Mild LEG Verified 03/27/21 11:47 [From Compazine] NUMBNESS hydrochlorothiazide Allergy Unknown RASH Verified 03/27/21 11:47 levofloxacin [Levaquin] Allergy Unknown Wakefulness, Verified 03/27/21 11:47 nausea, shaking Sulfa (Sulfonamide AdvReac Intermediate rash Verified 03/27/21 11:47 Antibiotics) codeine AdvReac Unknown NAUSEA/VOMI Verified 03/27/21 11:47 TING chocolate Allergy Unknown severe Uncoded 08/18/20 15:35 headaches/vomiting Assessment & Plan Assessment & Plan (1) Dementia: Status: Acute Code(s): F03.90 - Unspecified dementia without behavioral disturbance Recommendations: Patient has been noted to have significant memory and cognitive impairments. She also has had some hallucinations, and is delusional thinking. She was able to spell WORLD backwards, and recall several words, but she is not consistent. There could also be a delirium component involved, as she was stable at home for a time, and then has now been found to have a UTI, her symptoms have declined. As per Case manger note, there has been some discussion regarding usp placement. This would be advisable, as she is currently cognitively impaired. has requested to speak with CM. This has been shared with CM via secure messaging. She currently has low dose seroquel scheduled twice daily, which can help with behavioral disturbances. Recommend d/c Myrbetriq as it is an anticholinergic. I have shared my thoughts with Dr. Renetta Raymundo, via secure messaging. (2) AMS (altered mental status): Status: Acute Code(s): R41.82 - Altered mental status, unspecified Greater than 50% of the session was spent on counseling and/or coordination of care
[2021-04-09 19:41] LABS: CDIFF Ag Negative (Negative); CDIFF Internal ctrl Dots and bkg OK (V); CDiff Toxin Negative (Negative)
[2021-04-09] MEDS: Warfarin Sodium 3 MG TABLET PO (20:14)
[2021-04-09] MEDS: 0.9 % Sodium Chloride Flush 3 ML SYRINGE IVFLUSH (20:19)
[2021-04-10] VITALS (8 sets, daily range): BP systolic 100–175; BP diastolic 59–84; PULSE 84–98; RESP 18–20; TEMP 36.2–36.8; O2SAT 99–100
[2021-04-10] MEDS: 0.9 % Sodium Chloride 1,000 ML 100 ML IVCONT (01:22)
[2021-04-10 06:57] LABS: INTERNATIONAL NORM RATIO 1.8 (0.9-1.1)
--- NOTE | 2021-04-10 07:00 | ECG_ITS ---
Test Reason : PROLONGED QTC Blood Pressure : / mmHG Vent. Rate : 090 BPM Atrial Rate : 090 BPM P-R Int : 136 ms QRS Dur : 090 ms QT Int : 412 ms P-R-T Axes : 062 019 051 degrees QTc Int : 504 ms Normal sinus rhythm Prolonged QT Abnormal ECG When compared with ECG of 08-APR-2021 09:24, No significant change was found Referred By: Renetta Raymundo Electronically Signed By:WESTON AMARO
[2021-04-10] MEDS: Magnesium Oxide 400 MG TABLET 800 MG PO ×2 (08:10→20:25)
[2021-04-10] MEDS: Famotidine 20 MG TABLET 40 MG PO ×2 (08:10→20:25)
[2021-04-10] MEDS: Amoxicillin/Potassium Clav 500 MG TABLET PO ×2 (08:10→20:25)
[2021-04-10] MEDS: QUEtiapine Fumarate 25 MG TABLET PO ×2 (08:10→20:26)
[2021-04-10] MEDS: Metoprolol Tartrate 12.5 MG HALFTAB PO ×2 (08:11→20:25)
[2021-04-10] MEDS: Folic Acid 1 MG TABLET PO (08:11)
[2021-04-10] MEDS: 0.9 % Sodium Chloride Flush 3 ML SYRINGE IVFLUSH (08:13)
[2021-04-10] MEDS: Loperamide HCl 2 MG CAPSULE PO (10:02)
--- NOTE | 2021-04-10 10:38 | P.DS_ITS ---
DS: Providers Provider Date of Service: 04/10/21 Date of admission: 04/04/21 23:10 Primary care physician: Vinicius Burnett MD Consults: 04/04/21 23:10 Consult to Neurology Routine Consulting Provider: Saulo Frey Reason for consultation: acute slur speech 04/07/21 12:37 Consult to Psychiatry Routine Consulting Provider: [facility] Reason for consultation: Confusion, hallucination is this dementia with Psychosis Has provider been notified: No DS: Diagnosis Discharge Diagnosis (1) Dementia: Status: Acute (2) AMS (altered mental status): Status: Acute DS: Medications Discharge Medications Home Medications: Home Medications Medication Instructions Recorded Confirmed famotidine 20 mg tablet 40 mg PO BID tab 09/11/20 04/04/21 folic acid 1 mg PO DAILY 10/06/20 04/04/21 warfarin 2 mg PO SUTUTHSA@1800 10/06/20 04/04/21 warfarin 4 mg PO MOWEFR@1800 10/06/20 04/04/21 magnesium oxide 800 mg PO BID tab 02/02/21 04/04/21 metoprolol tartrate 25 mg tablet 12.5 mg PO BID tab 02/24/21 04/04/21 amoxicillin-pot clavulanate 1 tab PO BID 04/04/21 04/04/21 mirabegron [Myrbetriq] 25 mg PO BEDTIME 04/04/21 04/04/21 quetiapine 25 mg PO BID 04/04/21 04/04/21 Previous Rx's Medication Instructions Recorded nitrofurantoin 100 mg PO Q12H 7 Days #14 cap 03/29/21 monohydrate/macrocrystals 100 mg capsule DS: Summary Hospital Course Hospital Course: Chief Complaint: Confusion, slur speech 80 year old female with recurrent UTI, history of breast cancer in 2006 in remission, history of DVT and PE and has been on anticoagulation with Coumadin since 2002., history of alcoholic fatty liver disease, history of to B12 deficiency and history of at tubular adenoma. A she present to the emergency room today accompanied by her who related that the patient has been confused since this morning and having slurred speech that has not improved. She has not had any weakness in the arms or the legs, no visual changes. In the ED she had a CT scan of the head which showed no acute stroke. Urinalysis is negative. Hospital course: 80 year old female with slurness of speech with concern for possible stroke vs TIA, she had negative stroke work up with CT of head, MRI which were unremkarkable for stroke. She was evaluated by Neurology and we thinking intermittent confusion is likely from dementia. She was also evaluated by by Psychiatry and they recommend discontinuing Mybetri. Patient also had an EEG that was normal 2.Syncope was due to a vaso valgal--She was on the toiled and developped bradycardia and hypotension--and recovered very quickly and has not had any further episode 3.Hypokalemia--corrected, replaced orally 4.Lactic acidosis--not due to sepsis, hydrate and recheck 5.h/o PE/DVT - coumadin dose adjusted due to subtherapeutic inr Time Spent with Patient Time attestation: Total time spent providing and/or coordinating discharge services: Discharge coordination time: Greater than 30 minutes Quality: Stroke Does the patient have a stroke diagnosis?: No Physical Exam Vital Signs: Vital Signs: Last Vital Signs Temp 97.5 F 04/10/21 07:46 Pulse 87 04/10/21 08:11 Resp 20 04/10/21 07:46 BP 175/84 H 04/10/21 08:11 Pulse Ox 99 04/10/21 07:46 Body Mass Index 24.1 DS: Data Data Completed and Pending Completed studies during hospitalization [Text1]: Procedures Replacement of Left Knee Joint with Synthetic Substitute, Uncemented, Open Approach (10/06/20) Transfusion of Nonautologous Red Blood Cells into Peripheral Vein, Percutaneous Approach (10/06/20) Labs on day of discharge: Laboratory Results - last 24 hr 04/09/21 04/09/21 04/10/21 13:55 18:36 05:18 WBC 6.0 Absolute Neuts (auto) 3.8 PT Cancelled INR Cancelled C. difficile Toxin A&B Negative C. difficile Antigen Negative C. difficile Interpret SEE NOTE 04/10/21 05:18 WBC Absolute Neuts (auto) PT 22.0 H INR 1.8 H C. difficile Toxin A&B C. difficile Antigen C. difficile Interpret Preliminary micro results at discharge 04/09/21 18:36 Stool Culture - Preliminary Stool Normal so far. Discharge Plan Discharge Anticipated Discharge Date/Time: 04/10/21 11:04 Patient Disposition: Xfer SNF Discharge Diagnosis: Altered mental status Referrals: hiram lunsford [Other] - 1 Week Po,Vinicius Magdaleno MD [Primary Care Provider] - 1 Week Discharge Medications: Continued metoprolol tartrate 25 mg tablet 12.5 mg PO BID RF: 0 warfarin 2 mg Tablet 2 mg PO SUTUTHSA@1800 RF: 0 warfarin 2 mg Tablet 4 mg PO MOWEFR@1800 RF: 0 Hold Instructions: using 2 mg tab folic acid 1 mg Tablet 1 mg PO DAILY RF: 0 magnesium oxide 400 mg magnesium tablet 800 mg PO BID RF: 0 quetiapine 25 mg tablet 25 mg PO BID RF: 0 Discontinued nitrofurantoin monohyd/m-cryst [Macrobid] 100 mg capsule 100 mg PO Q12H 7 Days Qty: 14 RF: 0 Myrbetriq 50 mg tablet extended release 24 hr 25 mg PO BEDTIME RF: 0 amoxicillin-pot clavulanate 500-125 mg tablet 1 tab PO BID RF: 0 famotidine 20 mg tablet 40 mg PO BID RF: 0 Discharge Orders: Discharge Order (Routine); Ordered 04/10/21 Ordered By: Derrell Valdez Diet: advance to usual diet Activity on Discharge: As tolerated Stand Alone Forms: Patient Portal Discharge page Care Plan Goals: prevent Health Concerns: Dementia with confusion Plan of Treatment: To short term rehab Assessment: See above
--- NOTE | 2021-04-10 11:52 | MHC.CM.PN ---
pt dcd today to [facility] notified transpiration booked,floor notified
[2021-04-10 14:06] LABS: COVID-19 Test Negative (Negative)
--- NOTE | 2021-04-10 14:26 | PC.NURSE ---
Pt seen for skin assessment today. No skin issues except bilateral bruising to arms. Discharge is today.
--- NOTE | 2021-04-10 15:45 | MHC.CM.PN ---
pt refusing to get on stretcher for transfer to [facility] has been contaced by staff facility amb all aware present psych eval requested ?[facility]
--- NOTE | 2021-04-10 16:36 | PC.NURSE ---
Patient refusing to be discharged to rehab facility. Case management and at bedside to educate patient on importance of being discharged to a rehab facility. Patient confused, aggravated, and continuously refusing to be discharged. MD notified. discharge canceled at this time.
[2021-04-10] MEDS: Warfarin Sodium 4 MG TABLET PO (18:21)
--- NOTE | 2021-04-10 22:35 | HO.PM.IMPN ---
Subjective Subjective Date of Service: 04/10/21 Interval History: Seen in f/u for confusion, less confused today. She refused to go rehab Review of Systems Gen: no fever Resp: no sob, no cough CV: no chest, no HAIR, no leg edema GI: No n/v, no abd pain Neuro: No confusion Physical Exam Vital Signs: Vital Signs: Last Vital Signs Temp 97.8 F 04/10/21 19:32 Pulse 96 04/10/21 20:25 Resp 18 04/10/21 19:32 BP 138/64 04/10/21 20:25 Pulse Ox 99 04/10/21 19:32 Body Mass Index 24.1 Const: Other: General: AO X 2, no acute distress Resp: CTA bilateral CVS: S1,S2,RRR GI: +BS, NT, no distention Skin: No rash Neuro: motor grossly intact Psych: appropriate affect Objective Data Current Medications Generic Name Dose Route Start Last Admin Trade Name Freq PRN Reason Stop Dose Admin Acetaminophen 650 mg 04/04/21 23:10 Acetaminophen Supp 650 Mg Supp.Rect MD Q6H PRN Pain, Mild (Pain Scale 1-3) Amoxicillin/Clavulanate Potassium 500 mg 04/04/21 23:10 04/10/21 20:25 Amoxicillin/Potassium Clav 500 Mg Tablet PO 500 mg BID ADAM Administration Famotidine 40 mg 04/04/21 23:10 04/10/21 20:25 Famotidine 20 Mg Tablet PO 40 mg BID ADAM Administration Folic Acid 1 mg 04/05/21 09:00 04/10/21 08:11 Folic Acid 1 Mg Tablet PO 1 mg DAILY ADAM Administration Sodium Chloride 1,000 mls @ 100 mls/hr 04/08/21 09:30 04/10/21 21:35 Ns IVCONT Not Given .Q10H ADAM Sodium Chloride 1,000 mls @ 100 mls/hr 04/08/21 09:45 04/10/21 21:47 Ns IVCONT Not Given .Q10H ADAM Loperamide HCl 2 mg 04/09/21 09:14 04/10/21 10:02 Loperamide Hcl 2 Mg Capsule PO 2 mg Q6H PRN Administration diarrhae Magnesium Oxide 800 mg 04/04/21 23:10 04/10/21 20:25 Magnesium Oxide 400 Mg Tablet PO 800 mg BID ADAM Administration Metoprolol Tartrate 12.5 mg 04/04/21 23:10 04/10/21 20:25 Metoprolol Tartrate 12.5 Mg Halftab PO 12.5 mg BID ADAM Administration Protocol Pharmacy Consult 1 each 04/04/21 16:45 Consult Rx Perform Med Rec MISCELLANE ONCE PRN Consult order Quetiapine Fumarate 25 mg 04/04/21 23:10 04/10/21 20:26 Quetiapine Fumarate 25 Mg Tablet PO 25 mg BID ADAM Administration Sodium Chloride 3 ml 04/05/21 00:00 04/10/21 20:27 0.9 % Sodium Chloride Flush 3 Ml Syringe IVFLUSH Not Given QSHIFT [facility] Warfarin Sodium 4 mg 04/06/21 18:00 04/10/21 18:21 Warfarin Sodium 4 Mg Tablet PO 4 mg [email or web address]@1800 [facility] Administration Warfarin Sodium 3 mg 04/09/21 18:00 04/09/21 20:14 Warfarin Sodium 3 Mg Tablet PO 3 mg [email or web address]@1800 [facility] Administration Labs CBC & Chem 7: 04/09/21 13:55 04/08/21 09:46 Labs: Laboratory Results - last 24 hr 04/10/21 04/10/21 04/10/21 05:18 05:18 13:32 PT Cancelled 22.0 H INR Cancelled 1.8 H COVID-19 ([facility]) Negative COVID-19 Clin Com See Note Microbiology Microbiology Results: Microbiology 04/09/21 18:36 Stool Culture - Preliminary Stool Normal so far. Quality Stroke Does the patient have a stroke diagnosis?: No VTE Prior VTE?: Yes VTE Risk Level:: Medical - moderate - high VTE Device Contraindication: N/A - Device Ordered VTE Drug Contraindication: N/A - Med Ordered Assessment and Plan (1) Dementia: Status: Acute Assessment and Plan: 80 year old female with slurness of speech with concern for possible stroke vs TI vs some metabolic encephalopathy 1.Slur speech r/o stroke, was transient, stroke work up negative with CT and MRI -MRI show no acute stroke, just a lot of cortical changes that can affect memory and ability to make sound decision--per neuro -I think present confusion, hallucination is part of dementia, ? also on antibiotics due to uti -may be uti also contributin eeg is negative -will get Psych consult still pending 2.Syncope yesterday -probable Vaso vagal episode, no new event overnight qtc on ekg was 504ms yesterday , her prevuios ekg from this year also shows qtc near 490-495ms but reviewed on tele today qtc -is 360 msec added potassium replacement due to boderline . moniter closely electrolytes repeat ekg in am 3.Hypokalemia--corrected, replaced orally 4.Lactic acidosis--not due to sepsis, hydrate and recheck 5.h/o PE/DVT - coumadin dose adjusted due to subtherapeutic inr 6.Recurrent UTI--on Macrobid, not good for old peopl, hold, continue Amx, no acute UTI 7.Dementia with agiation Myrbetriq, Seroquel 8.Diarrhea-added stool for wbc, stool cultures, cdif-if c diff neg-continue immodium 9.DVT prophylaxis--coumadin adjusted due to subtherapeutic inr Full code, discussed with at bedside Will reattempt going to rehab
[2021-04-11 03:43] VITALS: BP 146/71; PULSE 75; RESP 18; TEMP 36.4; O2SAT 99
[2021-04-11 06:17] LABS: INTERNATIONAL NORM RATIO 1.7 (0.9-1.1); Prothrombin Time 20.2 SEC (10.8-13.0)
--- NOTE | 2021-04-11 07:12 | HO.PM.IMPN ---
Subjective Subjective Date of Service: 04/11/21 Interval History: Seen in f/u for confusion, she is pretty lucid this morning Review of Systems Gen: no fever Resp: no sob, no cough CV: no chest, no HAIR, no leg edema GI: No n/v, no abd pain Neuro: No confusion Physical Exam Vital Signs: Vital Signs: Last Vital Signs Temp 97.6 F 04/11/21 03:43 Pulse 75 04/11/21 03:43 Resp 18 04/11/21 03:43 BP 146/71 H 04/11/21 03:43 Pulse Ox 99 04/11/21 03:43 Body Mass Index 24.1 Const: Other: General: AO X 2, no acute distress Resp: CTA bilateral CVS: S1,S2,RRR GI: +BS, NT, no distention Skin: No rash Neuro: motor grossly intact Psych: appropriate affect Objective Data Current Medications Generic Name Dose Route Start Last Admin Trade Name Freq PRN Reason Stop Dose Admin Acetaminophen 650 mg 04/04/21 23:10 Acetaminophen Supp 650 Mg Supp.Rect AR Q6H PRN Pain, Mild (Pain Scale 1-3) Amoxicillin/Clavulanate Potassium 500 mg 04/04/21 23:10 04/10/21 20:25 Amoxicillin/Potassium Clav 500 Mg Tablet PO 500 mg BID ADAM Administration Famotidine 40 mg 04/04/21 23:10 04/10/21 20:25 Famotidine 20 Mg Tablet PO 40 mg BID ADAM Administration Folic Acid 1 mg 04/05/21 09:00 04/10/21 08:11 Folic Acid 1 Mg Tablet PO 1 mg DAILY ADAM Administration Sodium Chloride 1,000 mls @ 100 mls/hr 04/08/21 09:30 04/10/21 21:35 Ns IVCONT Not Given .Q10H ADAM Sodium Chloride 1,000 mls @ 100 mls/hr 04/08/21 09:45 04/10/21 21:47 Ns IVCONT Not Given .Q10H ADAM Loperamide HCl 2 mg 04/09/21 09:14 04/10/21 10:02 Loperamide Hcl 2 Mg Capsule PO 2 mg Q6H PRN Administration diarrhae Magnesium Oxide 800 mg 04/04/21 23:10 04/10/21 20:25 Magnesium Oxide 400 Mg Tablet PO 800 mg BID ADAM Administration Metoprolol Tartrate 12.5 mg 04/04/21 23:10 04/10/21 20:25 Metoprolol Tartrate 12.5 Mg Halftab PO 12.5 mg BID ADAM Administration Protocol Pharmacy Consult 1 each 04/04/21 16:45 Consult Rx Perform Med Rec MISCELLANE ONCE PRN Consult order Quetiapine Fumarate 25 mg 04/04/21 23:10 04/10/21 20:26 Quetiapine Fumarate 25 Mg Tablet PO 25 mg BID ADAM Administration Sodium Chloride 3 ml 04/05/21 00:00 04/10/21 20:27 0.9 % Sodium Chloride Flush 3 Ml Syringe IVFLUSH Not Given QSHIFT [facility] Warfarin Sodium 4 mg 04/06/21 18:00 04/10/21 18:21 Warfarin Sodium 4 Mg Tablet PO 4 mg [email or web address]@1800 [facility] Administration Warfarin Sodium 3 mg 04/09/21 18:00 04/09/21 20:14 Warfarin Sodium 3 Mg Tablet PO 3 mg [email or web address]@1800 [facility] Administration Labs CBC & Chem 7: 04/09/21 13:55 04/08/21 09:46 Labs: Laboratory Results - last 24 hr 04/10/21 04/11/21 13:32 04:55 PT 20.2 H INR 1.7 H COVID-19 ([facility]) Negative COVID-19 Clin Com See Note Microbiology Microbiology Results: Microbiology 04/09/21 18:36 Stool Culture - Preliminary Stool Normal so far. Quality Stroke Does the patient have a stroke diagnosis?: No VTE Prior VTE?: Yes VTE Risk Level:: Medical - moderate - high VTE Device Contraindication: N/A - Device Ordered VTE Drug Contraindication: N/A - Med Ordered Assessment and Plan (1) Dementia: Status: Acute Assessment and Plan: 80 year old female with slurness of speech with concern for possible stroke vs TI vs some metabolic encephalopathy 1.Slur speech r/o stroke, was transient, stroke work up negative with CT and MRI -MRI show no acute stroke, just a lot of cortical changes that can affect memory and ability to make sound decision--per neuro -I think present confusion, hallucination is part of dementia, eeg is negative -Psych saw and made some changes to meds 2.Syncope the other day -probable Vaso vagal episode, no new event overnight qtc on ekg was 504ms yesterday , her prevuios ekg from this year also shows qtc near 490-495ms but reviewed on tele today qtc -is 360 msec added potassium replacement due to boderline . moniter closely electrolytes repeat ekg in am 3.Hypokalemia--corrected, replaced orally 4.Lactic acidosis--not due to sepsis, hydrate and recheck 5.h/o PE/DVT - coumadin dose adjusted due to subtherapeutic inr 6.Recurrent UTI--on Macrobid, not good for old peopl, hold, continue Amx, no acute UTI 7.Dementia with agiation Myrbetriq, Seroquel 8.Diarrhea-added stool for wbc, stool cultures, cdif-if c diff neg-continue immodium 9.DVT prophylaxis--coumadin adjusted due to subtherapeutic inr Full code, discussed with at bedside She refused to go to rehab yesterday, she is pretty lucid today, I will speak to and if he is willing to try taken her home again that will be fine and if this happens again then can try placement
[2021-04-11 07:51] VITALS: BP 152/76; PULSE 96; RESP 18; TEMP 36.7; O2SAT 98
[2021-04-11] MEDS: Magnesium Oxide 400 MG TABLET 800 MG PO (09:35)
[2021-04-11] MEDS: QUEtiapine Fumarate 25 MG TABLET PO (09:35)
[2021-04-11] MEDS: Metoprolol Tartrate 12.5 MG HALFTAB PO (09:36)
[2021-04-11] MEDS: Amoxicillin/Potassium Clav 500 MG TABLET PO (09:36)
[2021-04-11] MEDS: Famotidine 20 MG TABLET 40 MG PO (09:36)
[2021-04-11] MEDS: Folic Acid 1 MG TABLET PO (09:36)
--- NOTE | 2021-04-11 10:35 | MHC.CM.PN ---
Plan for dc home today with her . [facility] has accepted patient, informed them of dc. Referral placed to [facility] for inhome services as well.
== END 2021-04-11 12:30 | disposition home health service (06) | DRG 641 ==
LOC: HO.ED 18:29 → HO.EDOVER 23:42 → HO.ICU 04-06 07:37 → HO.IMC 04-06 15:57
PROVIDERS: Internal Medicine; Nurse Practitioner Family; Admitting Provider Internal Medicine; Emergency Provider Emergency Medicine Emergency Medical Services; PCP Internal Medicine; Visit Provider Internal Medicine
DX: E87.6 Hypokalemia (principal); E87.2 Acidosis; I10 Essential (primary) hypertension; F03.90 Unspecified dementia, unspecified severity, without behavioral disturbance, psychotic disturbance, mood disturbance, and anxiety; R19.7 Diarrhea, unspecified; Z20.822 Contact with and (suspected) exposure to COVID-19; Z85.3 Personal history of malignant neoplasm of breast; R55 Syncope and collapse; Z88.2 Allergy status to sulfonamides; Z88.5 Allergy status to narcotic agent; Z79.01 Long term (current) use of anticoagulants; Z79.899 Other long term (current) drug therapy; Z87.440 Personal history of urinary (tract) infections; Z86.718 Personal history of other venous thrombosis and embolism
CPT/HCPCS: 36415; 70450; 70496; 70498; 70551; 71250; 74176; 80048; 80053; 80061; 80076; 80307; 81001; 81003; 82550; 83605; 83735; 84100; 84484; 85025; 85027; 85048; 85610; 85730; 87040; 87045; 87046; 87324; 87449; 87635; 93005; 95819; 97110; 97116; 97162; 97166; 99211; 99285; Q9967

== ENCOUNTER → 2021-04-13 12:13 | Outpatient (BNVA) | payer MEDICARE, SELFPAY | PROVIDERS: PCP Internal Medicine; Visit Provider Internal Medicine ==

== ENCOUNTER → 2021-04-16 10:13 | Outpatient (BNVA) | payer MEDICARE, SELFPAY | PROVIDERS: PCP Internal Medicine; Visit Provider Internal Medicine ==

== ENCOUNTER → 2021-04-17 14:51 | Outpatient (BNVA) | payer MEDICARE, SELFPAY | PROVIDERS: PCP Internal Medicine; Visit Provider Urology | DX: N39.0 Urinary tract infection, site not specified (principal); R39.15 Urgency of urination | CPT/HCPCS: 99212 ==

== ENCOUNTER → 2021-04-20 11:55 | Outpatient (BNVA) | payer MEDICARE, SELFPAY | PROVIDERS: PCP Internal Medicine; Visit Provider Internal Medicine | DX: I26.99 Other pulmonary embolism without acute cor pulmonale (principal) | CPT/HCPCS: Q3014 ==

== ENCOUNTER → 2021-04-23 11:01 | Outpatient (BNVA) | payer MEDICARE, SELFPAY | PROVIDERS: PCP Internal Medicine; Visit Provider Internal Medicine ==

== ENCOUNTER → 2021-04-28 14:55 | Outpatient (BNVA) | payer MEDICARE, SELFPAY | PROVIDERS: PCP Internal Medicine; Visit Provider Internal Medicine ==

== ENCOUNTER → 2021-05-05 13:17 | Outpatient (BNVA) | payer MEDICARE, SELFPAY | PROVIDERS: Visit Provider Internal Medicine ==

== ENCOUNTER → 2021-05-13 11:22 | Outpatient (BNVA) | payer MEDICARE, SELFPAY | PROVIDERS: PCP Internal Medicine; Visit Provider Internal Medicine | DX: I26.99 Other pulmonary embolism without acute cor pulmonale (principal); Z51.81 Encounter for therapeutic drug level monitoring; Z79.01 Long term (current) use of anticoagulants | CPT/HCPCS: Q3014 ==

== ENCOUNTER → 2021-05-14 15:27 | Outpatient (BNVA) | payer MEDICARE, SELFPAY | PROVIDERS: PCP Internal Medicine; Visit Provider Internal Medicine | DX: Z51.81 Encounter for therapeutic drug level monitoring (principal); Z79.01 Long term (current) use of anticoagulants | CPT/HCPCS: Q3014 ==

== ENCOUNTER → 2021-05-18 15:17 | Outpatient (BNVA) | payer MEDICARE, SELFPAY | PROVIDERS: PCP Internal Medicine; Visit Provider Internal Medicine ==

== ENCOUNTER → 2021-05-22 11:14 | Outpatient (BNVA) | payer MEDICARE, SELFPAY | PROVIDERS: PCP Internal Medicine; Visit Provider Internal Medicine | DX: I26.99 Other pulmonary embolism without acute cor pulmonale (principal) | CPT/HCPCS: Q3014 ==

== ENCOUNTER → 2021-05-27 14:37 | Outpatient (BNVA) | payer MEDICARE, SELFPAY | PROVIDERS: PCP Internal Medicine; Visit Provider Internal Medicine ==

== ENCOUNTER → 2021-06-03 12:10 | Outpatient (BNVA) | payer MEDICARE, SELFPAY | PROVIDERS: PCP Internal Medicine; Visit Provider Internal Medicine | DX: I26.99 Other pulmonary embolism without acute cor pulmonale (principal); Z51.81 Encounter for therapeutic drug level monitoring; Z79.01 Long term (current) use of anticoagulants | CPT/HCPCS: Q3014 ==

== ENCOUNTER → 2021-06-11 10:36 | Outpatient (BNVA) | payer MEDICARE, SELFPAY | PROVIDERS: PCP Internal Medicine; Visit Provider Internal Medicine | DX: I26.99 Other pulmonary embolism without acute cor pulmonale (principal) | CPT/HCPCS: Q3014 ==

== ENCOUNTER → 2021-06-18 10:29 | Outpatient (BNVA) | payer MEDICARE, SELFPAY | PROVIDERS: PCP Internal Medicine; Visit Provider Internal Medicine ==

== ENCOUNTER → 2021-06-25 10:16 | Outpatient (BNVA) | payer MEDICARE, SELFPAY | PROVIDERS: PCP Internal Medicine; Visit Provider Internal Medicine ==

== ENCOUNTER → 2021-07-09 10:37 | Outpatient (BNVA) | payer MEDICARE, SELFPAY | PROVIDERS: PCP Internal Medicine; Visit Provider Internal Medicine | DX: I26.99 Other pulmonary embolism without acute cor pulmonale (principal); Z51.81 Encounter for therapeutic drug level monitoring; Z79.01 Long term (current) use of anticoagulants | CPT/HCPCS: Q3014 ==

== ENCOUNTER → 2021-07-15 10:24 | Outpatient (BNVA) | payer MEDICARE, SELFPAY | PROVIDERS: PCP Internal Medicine; Visit Provider Internal Medicine | DX: I26.99 Other pulmonary embolism without acute cor pulmonale (principal); Z51.81 Encounter for therapeutic drug level monitoring; Z79.01 Long term (current) use of anticoagulants | CPT/HCPCS: 85610; 99211 ==

== ENCOUNTER → 2021-07-31 09:47 | Outpatient (BNVA) | payer MEDICARE, SELFPAY | PROVIDERS: PCP Internal Medicine; Visit Provider Internal Medicine | DX: N30.00 Acute cystitis without hematuria (principal); N36.2 Urethral caruncle; I26.99 Other pulmonary embolism without acute cor pulmonale; Z51.81 Encounter for therapeutic drug level monitoring; Z79.01 Long term (current) use of anticoagulants | CPT/HCPCS: 51798; 85610; 87086; 99211; 99212 ==

== ENCOUNTER 2021-07-31 12:13 | Outpatient (REF) | payer MEDICARE, SELFPAY | END 2021-07-31 12:14 | disposition home or self-care (01) | LOC: HO.LNP 12:13 | PROVIDERS: Visit Provider Urology | DX: Z13.89 Encounter for screening for other disorder (principal) | CPT/HCPCS: 87086 ==

== ENCOUNTER → 2021-08-21 10:01 | Outpatient (BNVA) | payer MEDICARE, SELFPAY | PROVIDERS: PCP Internal Medicine; Visit Provider Internal Medicine | DX: I26.99 Other pulmonary embolism without acute cor pulmonale (principal); Z51.81 Encounter for therapeutic drug level monitoring; Z79.01 Long term (current) use of anticoagulants | CPT/HCPCS: 85610; 99211 ==

== ENCOUNTER 2021-09-03 09:35 | Outpatient (REF) | payer MEDICARE, SELFPAY ==
--- NOTE | ~2021-09-03 | MM_ITS ---
EXAMINATION: MM SCREENING DIGITAL BREAST TOMOSYNTHESIS, LEFT CLINICAL INFORMATION: Screening. Asymptomatic. Status post right mastectomy. COMPARISON: Mammography: August 27, 2020 and studies dating back to August 17, 2016 TECHNIQUE: Digital breast tomosynthesis is performed in both the craniocaudal and mediolateral oblique views along with computer-aided detection (CAD). Synthesized 2D images are generated from the tomosynthesis. FINDINGS: There are scattered areas of fibroglandular density (ACR BI-RADS breast composition Category b). There are no significant masses, abnormal calcifications, or other abnormalities. MM/MM tomosynthesis screening LT IMPRESSION: There are no significant changes from prior study. ASSESSMENT: BI-RADS 1: Negative RECOMMENDATION: Routine annual mammography screening. This patient's information was entered into a reminder system with a target due date for their next mammogram.
== END 2021-09-03 09:36 | disposition home or self-care (01) ==
LOC: HO.MAMMO 09:35
PROVIDERS: Visit Provider Internal Medicine
DX: Z12.31 Encounter for screening mammogram for malignant neoplasm of breast (principal); I26.99 Other pulmonary embolism without acute cor pulmonale; Z51.81 Encounter for therapeutic drug level monitoring; Z79.01 Long term (current) use of anticoagulants
CPT/HCPCS: 77063; 77067; 85610; 99211

== ENCOUNTER → 2021-09-24 10:21 | Outpatient (BNVA) | payer MEDICARE, SELFPAY | PROVIDERS: PCP Internal Medicine; Visit Provider Internal Medicine | DX: I26.99 Other pulmonary embolism without acute cor pulmonale (principal); Z51.81 Encounter for therapeutic drug level monitoring; Z79.01 Long term (current) use of anticoagulants | CPT/HCPCS: 85610; 99211 ==

== ENCOUNTER → 2021-10-13 09:49 | Outpatient (BNVA) | payer MEDICARE, SELFPAY | PROVIDERS: PCP Internal Medicine; Referring Provider Internal Medicine; Visit Provider Surgery | DX: Z85.3 Personal history of malignant neoplasm of breast (principal) | CPT/HCPCS: 99212 ==

== ENCOUNTER → 2021-10-22 10:33 | Outpatient (BNVA) | payer MEDICARE, SELFPAY | PROVIDERS: PCP Internal Medicine; Visit Provider Internal Medicine | DX: I26.99 Other pulmonary embolism without acute cor pulmonale (principal); Z51.81 Encounter for therapeutic drug level monitoring; Z79.01 Long term (current) use of anticoagulants | CPT/HCPCS: 85610; 99211 ==

== ENCOUNTER → 2021-11-19 10:17 | Outpatient (BNVA) | payer MEDICARE, SELFPAY | PROVIDERS: PCP Internal Medicine; Visit Provider Internal Medicine | DX: I26.99 Other pulmonary embolism without acute cor pulmonale (principal); Z51.81 Encounter for therapeutic drug level monitoring; Z79.01 Long term (current) use of anticoagulants | CPT/HCPCS: 85610; 99211 ==

== ENCOUNTER → 2021-12-17 09:48 | Outpatient (BNVA) | payer MEDICARE, SELFPAY | PROVIDERS: PCP Internal Medicine; Visit Provider Internal Medicine | DX: I26.99 Other pulmonary embolism without acute cor pulmonale (principal); Z51.81 Encounter for therapeutic drug level monitoring; Z79.01 Long term (current) use of anticoagulants | CPT/HCPCS: 85610; 99211 ==

== ENCOUNTER → 2022-01-21 09:50 | Outpatient (BNVA) | payer MEDICARE, SELFPAY | PROVIDERS: PCP Internal Medicine; Visit Provider Internal Medicine | DX: I26.99 Other pulmonary embolism without acute cor pulmonale (principal); Z51.81 Encounter for therapeutic drug level monitoring; Z79.01 Long term (current) use of anticoagulants | CPT/HCPCS: 85610; 99211 ==

== ENCOUNTER 2022-01-26 07:22 | Outpatient (REF) | payer MEDICARE, SELFPAY ==
[2022-01-26 11:46] LABS: Magnesium 1.9 mg/dL (1.6-2.6)
== END 2022-01-26 07:23 | disposition home or self-care (01) ==
LOC: HO.HMGCLDS 07:22
PROVIDERS: Visit Provider Internal Medicine Gastroenterology
DX: K21.9 Gastro-esophageal reflux disease without esophagitis (principal)
CPT/HCPCS: 36415; 83735

== ENCOUNTER → 2022-02-02 09:03 | Outpatient (BNVA) | payer MEDICARE, SELFPAY | PROVIDERS: PCP Internal Medicine; Visit Provider Internal Medicine | DX: N32.81 Overactive bladder (principal); R39.15 Urgency of urination; R35.1 Nocturia; I26.99 Other pulmonary embolism without acute cor pulmonale; Z79.01 Long term (current) use of anticoagulants; Z51.81 Encounter for therapeutic drug level monitoring | CPT/HCPCS: 51798; 85610; 99211; 99212 ==

== ENCOUNTER → 2022-02-12 09:39 | Outpatient (BNVA) | payer MEDICARE, SELFPAY | PROVIDERS: PCP Internal Medicine; Visit Provider Internal Medicine | DX: I26.99 Other pulmonary embolism without acute cor pulmonale (principal); Z79.01 Long term (current) use of anticoagulants; Z51.81 Encounter for therapeutic drug level monitoring | CPT/HCPCS: 85610; 99212 ==

== ENCOUNTER → 2022-02-26 09:54 | Outpatient (BNVA) | payer MEDICARE, SELFPAY | PROVIDERS: PCP Internal Medicine; Visit Provider Internal Medicine | DX: I26.99 Other pulmonary embolism without acute cor pulmonale (principal); Z79.01 Long term (current) use of anticoagulants; Z51.81 Encounter for therapeutic drug level monitoring | CPT/HCPCS: 85610; 99212 ==

== ENCOUNTER → 2022-03-01 09:37 | Outpatient (BNVA) | payer MEDICARE, SELFPAY | PROVIDERS: PCP Internal Medicine; Visit Provider Internal Medicine | DX: I26.99 Other pulmonary embolism without acute cor pulmonale (principal); Z79.01 Long term (current) use of anticoagulants; Z51.81 Encounter for therapeutic drug level monitoring | CPT/HCPCS: 85610; 99211 ==

== ENCOUNTER → 2022-03-03 09:54 | Outpatient (BNVA) | payer MEDICARE, SELFPAY | PROVIDERS: PCP Internal Medicine; Visit Provider Internal Medicine | DX: I26.99 Other pulmonary embolism without acute cor pulmonale (principal); Z79.01 Long term (current) use of anticoagulants; Z51.81 Encounter for therapeutic drug level monitoring | CPT/HCPCS: 85610; 99211 ==

== ENCOUNTER → 2022-03-08 10:08 | Outpatient (BNVA) | payer MEDICARE, SELFPAY | PROVIDERS: PCP Internal Medicine; Visit Provider Internal Medicine | DX: I26.99 Other pulmonary embolism without acute cor pulmonale (principal); Z79.01 Long term (current) use of anticoagulants; Z51.81 Encounter for therapeutic drug level monitoring | CPT/HCPCS: 85610; 99211 ==

== ENCOUNTER 2022-03-15 11:06 | Day surgery (SDC) | payer MEDICARE, SELFPAY ==
[2022-03-10 11:06] VITALS: BMI 23.1
--- NOTE | 2022-03-11 10:19 | HO.ANESPROP2 ---
Documented by User: Elizabeth Kendrick NP 03/11/22 10:26 HPI - Anesthesia Eval Consult details Narrative: 81yo F for Cystoscopy Bladder Botox Injection Warfarin for hx DVT/PE s/p TKR 09/2020 with GA and nerve block, pt to rehab for 3 months. She states this was d/t anesthesia rxn. Uneventful anesthesia and postop by record review. PMFSH Active Problems Active Problems: All Active Problems (Updated 02/02/22 @ 10:39 by Brandon Barbosa MD) Current use of anticoagulant therapy (Acute) Urinary incontinence (Acute) Anemia (Acute) Cognitive change (Acute) Encephalopathy acute (Acute) Urinary tract infection (Acute) Weakness (Acute) Fall (Acute) Supratherapeutic INR (Acute) PUMA (acute kidney injury) (Acute) Status post total knee replacement, left (Acute) Diarrhea (Acute) Confusion (Acute) Hallucination (Acute) Urinary incontinence (Acute) UTI (urinary tract infection) (Acute) Protein calorie malnutrition (Acute) Osteopenia (Acute) Chronic diarrhea (Acute) Pressure ulcer (Acute) Urinary urgency (Acute) B12 deficiency anemia (Acute) Medicare annual wellness visit, initial (Acute) Overactive bladder (Acute) Nocturia more than twice per night (Acute) GERD (gastroesophageal reflux disease) (Acute) History of right breast cancer (Acute) History of pulmonary embolism (Acute) Impaired fasting glucose (Acute) History of arthroplasty of left knee (Acute) HTN (hypertension) (Acute) Past Medical History Medical History B12 deficiency Breast cancer Fatty liver, alcoholic GERD (gastroesophageal reflux disease) History of alcohol use History of pulmonary embolism History of right breast cancer HTN (hypertension) Hx of deep venous thrombosis Hx of hypercalcemia Hx of metabolic acidosis Hx of tuberculosis Hypomagnesemia Impaired fasting glucose Irritable bowel syndrome Osteoarthritis of left knee Osteoporosis Peripheral neuropathy Pernicious anemia Thrombocytopenia TIA (transient ischemic attack) Family History Family History Father No problems noted. Mother No problems noted. Surgical History Surgical History H/O right mastectomy History of appendectomy History of arthroplasty of left knee History of cataract surgery History of cystoscopy History of esophagogastroduodenoscopy (EGD) History of evacuation of hematoma History of knee replacement procedure of right knee History of left knee surgery History of lumpectomy of right breast History of tonsillectomy Hx of adenoidectomy Hx of colonoscopy S/P SASHA-BSO (total abdominal hysterectomy and bilateral salpingo-oophorectomy) Social History Social History Household Members: Significant Other Housing: House Are you a primary healthcare administration internship to a significant other at home: No Do you presently have visiting nurse or other home services: No Alcohol intake: current Alcohol intake frequency: holidays/special occasions only Alcohol type: wine Patient Tobacco Use Status: Never used Tobacco e-Cigarette/Vaping Use: Never Used Second Hand Smoke Exposure: No Use of substances other than those prescribed or required for medical reasons: No Have you been hit, kicked, punched, or otherwise hurt by someone within the past year? If so, by whom?: No Are you DNR?: No Advance Directives: Yes Advance Directives Information Provided: Yes Advance Directives on File: Yes Advance Directives Date on File: 09/11/20 Recently lost weight without trying: No Nutrition Risks: Surgical patient >75years service: No Current occupational status: retired Meds Allergies Allergy/AdvReac Type Severity Reaction Status Date / Time sulfamethoxazole Allergy Severe Itching Verified 03/08/22 10:15 [From Bactrim] trimethoprim [From Bactrim] Allergy Severe Itching Verified 03/08/22 10:15 cortisone [Cortisone] Allergy Mild PT STATES, Verified 03/10/22 11:04 hx TB IT COULD AFFECT CRYSTALS IN LUNG prochlorperazine Allergy Mild LEG Verified 03/08/22 10:15 [From Compazine] NUMBNESS hydrochlorothiazide Allergy Unknown RASH Verified 03/08/22 10:15 levofloxacin [Levaquin] Allergy Unknown Wakefulness, Verified 03/08/22 10:15 nausea, shaking Sulfa (Sulfonamide AdvReac Intermediate rash Verified 03/08/22 10:15 Antibiotics) codeine AdvReac Unknown NAUSEA/VOMI Verified 03/08/22 10:15 TING chocolate Allergy Unknown severe Uncoded 03/03/22 10:08 headaches/vomiting Home Medications Medication Instructions Recorded Confirmed Last Taken Type omeprazole 20 mg capsule,delayed 20 mg PO DAILY 03/18/22 05/18/22 Unknown History release methenamine hippurate 1 gram tablet 1 tab PO DAILY 03/10/22 03/10/22 Unknown History Exam Exam Date and Time: March 11, 2022 1019 Height,Weight and Vital Signs: Height 5 ft 4 in Weight 61.235 kg Pertinent Lab Results Pertinent Lab Results: Laboratory Tests 08/28/21 08/28/21 10:48 Unknown WBC 6.0 Hgb 11.9 L Hct 35.9 L Plt Count 129 L Sodium 140 Potassium 4.0 Chloride 105 Carbon Dioxide 27 BUN 16 Creatinine 1.15 Narrative Narrative: EKG 03/2021 Vent. Rate : 090 BPM ? ? Atrial Rate : 090 BPM ?? P-R Int : 136 ms? QRS Dur : 090 ms ? ? QT Int : 412 ms ? ? ? P-R-T Axes : 062 019 051 degrees ?? QTc Int : 504 ms ? Normal sinus rhythm Prolonged QT Abnormal ECG When compared with ECG of 08-APR-2021 09:24, No significant change was found CT chest wo con 03/2021 IMPRESSION: Diffuse chronic interstitial lung disease and. No acute pneumonic consolidation seen. ? Evidence of previous right mastectomy. 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 I lateral extrarenal kidney pelvises without radiopaque urolith or hydronephrosis. ? No acute intra-abdominal process seen. ? Extensive postsurgical changes right pelvis. Assessment and Plan Assessment Anesthesia Assessment: Chart Reviewed Documented by User: Jacque Silveira MD 03/15/22 12:14 [facility] Past Medical History Medical History B12 deficiency Breast cancer Fatty liver, alcoholic GERD (gastroesophageal reflux disease) History of alcohol use History of pulmonary embolism History of right breast cancer HTN (hypertension) Hx of deep venous thrombosis Hx of hypercalcemia Hx of metabolic acidosis Hx of tuberculosis Hypomagnesemia Impaired fasting glucose Irritable bowel syndrome Osteoarthritis of left knee Osteoporosis Peripheral neuropathy Pernicious anemia Thrombocytopenia TIA (transient ischemic attack) Family History Family History Father No problems noted. Mother No problems noted. Surgical History Surgical History H/O right mastectomy History of appendectomy History of arthroplasty of left knee History of cataract surgery History of cystoscopy History of esophagogastroduodenoscopy (EGD) History of evacuation of hematoma History of knee replacement procedure of right knee History of left knee surgery History of lumpectomy of right breast History of tonsillectomy Hx of adenoidectomy Hx of colonoscopy S/P SASHA-BSO (total abdominal hysterectomy and bilateral salpingo-oophorectomy) History of Problems with Anesthesia: No Social History Social History Household Members: Significant Other Housing: House Are you a primary healthcare administration internship to a significant other at home: No Do you presently have visiting nurse or other home services: No Alcohol intake: current Alcohol intake frequency: holidays/special occasions only Alcohol type: wine Patient Tobacco Use Status: Never used Tobacco e-Cigarette/Vaping Use: Never Used Second Hand Smoke Exposure: No Use of substances other than those prescribed or required for medical reasons: No Have you been hit, kicked, punched, or otherwise hurt by someone within the past year? If so, by whom?: No Are you DNR?: No Advance Directives: Yes Advance Directives Information Provided: Yes Advance Directives on File: Yes Advance Directives Date on File: 09/11/20 Recently lost weight without trying: No Nutrition Risks: Surgical patient >75years service: No Current occupational status: retired Meds Allergies Allergy/AdvReac Type Severity Reaction Status Date / Time sulfamethoxazole Allergy Severe Itching Verified 03/08/22 10:15 [From Bactrim] trimethoprim [From Bactrim] Allergy Severe Itching Verified 03/08/22 10:15 cortisone [Cortisone] Allergy Mild PT STATES, Verified 03/10/22 11:04 hx TB IT COULD AFFECT CRYSTALS IN LUNG prochlorperazine Allergy Mild LEG Verified 03/08/22 10:15 [From Compazine] NUMBNESS hydrochlorothiazide Allergy Unknown RASH Verified 03/08/22 10:15 levofloxacin [Levaquin] Allergy Unknown Wakefulness, Verified 03/08/22 10:15 nausea, shaking Sulfa (Sulfonamide AdvReac Intermediate rash Verified 03/08/22 10:15 Antibiotics) codeine AdvReac Unknown NAUSEA/VOMI Verified 03/08/22 10:15 TING chocolate Allergy Unknown severe Uncoded 03/03/22 10:08 headaches/vomiting Home Medications Medication Instructions Recorded Confirmed Last Taken Type omeprazole 20 mg capsule,delayed 20 mg PO DAILY 01/08/22 03/10/22 Unknown History release methenamine hippurate 1 gram tablet 1 tab PO DAILY 03/10/22 03/10/22 Unknown History Exam Airway Mallampati Class: II TM Dist: >3cm Neck ROM: Limited Loose/Missing/Broken Teeth: No Heart: RRR Lungs: CTA Assessment and Plan Assessment Anesthesia Assessment: Anesthesia Plan Discussed Final Anesthetic Review History of Problems with Anesthesia: No NPO: Yes ASA Class: III Final Preanesthetic Review: Meds/Allgs Chart Reviewed, Consent Obtained/Reviewed and Anes Risks/Benef Reviewed Patient Risk: Intermediate Procedure Risk: Low Anesthetic Plan Anesthetic Plan: GA Disposition: Standard PACU
[2022-03-15 11:29] VITALS: BP 160/94; PULSE 98; RESP 18; TEMP 36.9; O2SAT 96
[2022-03-15 11:36] LABS: Hematocrit 38.4 % (37.0-47.0); Hemoglobin 12.8 g/dl (12.0-16.0); Mean Corpuscular HGB Conc 33.3 g/dl (31.0-35.0); Mean Corpuscular Hemoglobin 34.6 pg (27.0-33.0); Mean Corpuscular Volume 103.8 fL (80.0-98.0); Mean Platelet Volume 9.9 fL (9.4-12.3); Platelet Count 130 X10*3/uL (160-400); White Blood Count 6.1 X10*3/uL (4.8-10.8)
[2022-03-15 11:46] LABS: INTERNATIONAL NORM RATIO 2.3 (0.9-1.1); Prothrombin Time 26.3 SEC (9.9-13.0)
[2022-03-15] MEDS: Lactated Ringers 1,000 ML 100 ML IVCONT (11:58)
--- NOTE | 2022-03-15 12:00 | MHC.SHP ---
Pre-Procedural Eval Section A Date of Service: 03/15/22 The patient is an INPATIENT: No Changes since office visit: No Cold of Flu in the past 2 weeks, No New Medical Problems, No Changes in Medication and No Patient answered all questions The History & Physical has been completed within 30 days and I have reviewed it.: Yes Section B Chief Complaint: urinary incontinence Allergies: Allergies Allergy/AdvReac Type Severity Reaction Status Date / Time sulfamethoxazole Allergy Severe Itching Verified 03/08/22 10:15 [From Bactrim] trimethoprim [From Bactrim] Allergy Severe Itching Verified 03/08/22 10:15 cortisone [Cortisone] Allergy Mild PT STATES, Verified 03/10/22 11:04 hx TB IT COULD AFFECT CRYSTALS IN LUNG prochlorperazine Allergy Mild LEG Verified 03/08/22 10:15 [From Compazine] NUMBNESS hydrochlorothiazide Allergy Unknown RASH Verified 03/08/22 10:15 levofloxacin [Levaquin] Allergy Unknown Wakefulness, Verified 03/08/22 10:15 nausea, shaking Sulfa (Sulfonamide AdvReac Intermediate rash Verified 03/08/22 10:15 Antibiotics) codeine AdvReac Unknown NAUSEA/VOMI Verified 03/08/22 10:15 TING chocolate Allergy Unknown severe Uncoded 03/03/22 10:08 headaches/vomiting Plan Diagnosis/Plan: Unchanged (cystoscopy, botox injection) I have reviewed the history and physical and performed a pertinent physical examination on my patient. No changes have occurred unless specified.
--- NOTE | 2022-03-15 12:54 | W.PM.OPN ---
Operative Note Operative Note Date of Service: 03/15/22 Narrative: PreOperative Diagnosis: Overactive bladder with failure of medications Post Operative Diagnosis: Overactive bladder with failure of medications Procedure: Cystoscopy with injection 100 units Botox intra detrusor muscle Surgeon: Dr Brandon Barbosa Anesthesia: Sedation Indications for procedure: Is a very pleasant 81-year-old female. Has persistent urgency and frequency. Has failed oral medications. At office cystoscopy has effective emptying with minimal urethral rotation on cough. For cystoscopy and Botox injection. Is aware of the risks and benefits particularly related to urinary retention and possible infection. Procedure: After informed consent was verified the patient was brought to the operating room and placed in a supine position. Anesthesia was administered per protocol. Cystoscopy performed with 22 Romanian cystoscope. Bladder was emptied of urine. Bladder was refilled. Using 100 units of Botox mixed in 10 cc of normal saline injections were placed at the back wall of the bladder. 0.5cc placed at each injection site. Injections were placed in a grid 5 across and for high. Injections were placed from the inferior to superior position. Trabeculations on the bladder wall with targeted for each injection site. Procedure was tolerated well. Patient was extubated and transferred in stable condition to the recovery area. Pathology: None Drains: None
[2022-03-15 13:00] VITALS: BP 140/82; PULSE 88; RESP 18; TEMP 36.3; O2SAT 100
[2022-03-15 13:05] VITALS: BP 144/75; PULSE 85; RESP 16; O2SAT 100
[2022-03-15 13:10] VITALS: BP 149/81; PULSE 89; RESP 16; O2SAT 99
[2022-03-15] MEDS: Acetaminophen 325 MG TABLET 650 MG PO (13:13)
[2022-03-15] MEDS: Phenazopyridine HCL 100 MG TABLET PO (13:14)
[2022-03-15 13:15] VITALS: BP 153/89; PULSE 88; RESP 16; O2SAT 99
[2022-03-15 13:32] VITALS: BP 154/84; PULSE 92; RESP 16; TEMP 36.3; O2SAT 99
== END 2022-03-15 14:18 | disposition home or self-care (01) ==
PROVIDERS: Nurse Practitioner; PCP Internal Medicine; Visit Provider Urology
PROC: 3E0K8GC Introduction of Other Therapeutic Substance into Genitourinary Tract, Via Natural or Artificial Opening Endoscopic (ICD-10-PCS; CPT 52287; principal; 2022-03-15 13:40)
DX: N32.81 Overactive bladder (principal); N32.89 Other specified disorders of bladder; R35.0 Frequency of micturition; R39.15 Urgency of urination; R32 Unspecified urinary incontinence; I10 Essential (primary) hypertension; D51.0 Vitamin B12 deficiency anemia due to intrinsic factor deficiency; R73.01 Impaired fasting glucose; Z85.3 Personal history of malignant neoplasm of breast; Z86.718 Personal history of other venous thrombosis and embolism; Z86.711 Personal history of pulmonary embolism; Z79.01 Long term (current) use of anticoagulants; Z86.11 Personal history of tuberculosis; Z88.2 Allergy status to sulfonamides; Z88.8 Allergy status to other drugs, medicaments and biological substances; Z98.890 Other specified postprocedural states
CPT/HCPCS: 52287; 36415; 85027; 85610; J0585; J0690; J3010

== ENCOUNTER → 2022-03-16 08:46 | Outpatient (BNVA) | payer MEDICARE, SELFPAY | PROVIDERS: PCP Internal Medicine; Visit Provider Internal Medicine | DX: I26.99 Other pulmonary embolism without acute cor pulmonale (principal); Z79.01 Long term (current) use of anticoagulants; Z51.81 Encounter for therapeutic drug level monitoring | CPT/HCPCS: Q3014 ==

== ENCOUNTER → 2022-03-19 09:58 | Outpatient (BNVA) | payer MEDICARE, SELFPAY | PROVIDERS: PCP Internal Medicine; Visit Provider Internal Medicine | DX: I26.99 Other pulmonary embolism without acute cor pulmonale (principal); Z79.01 Long term (current) use of anticoagulants; Z51.81 Encounter for therapeutic drug level monitoring | CPT/HCPCS: 85610; 99211 ==

== ENCOUNTER → 2022-03-24 09:43 | Outpatient (BNVA) | payer MEDICARE, SELFPAY | PROVIDERS: PCP Internal Medicine; Visit Provider Internal Medicine | DX: I26.99 Other pulmonary embolism without acute cor pulmonale (principal); Z79.01 Long term (current) use of anticoagulants; Z51.81 Encounter for therapeutic drug level monitoring | CPT/HCPCS: 85610; 99211 ==

== ENCOUNTER → 2022-04-01 13:24 | Outpatient (BNVA) | payer MEDICARE, SELFPAY | PROVIDERS: PCP Internal Medicine | DX: N39.41 Urge incontinence (principal) | CPT/HCPCS: 51798; 99212 ==

== ENCOUNTER → 2022-04-08 10:04 | Outpatient (BNVA) | payer MEDICARE, SELFPAY | PROVIDERS: PCP Internal Medicine; Visit Provider Internal Medicine | DX: I26.99 Other pulmonary embolism without acute cor pulmonale (principal); Z79.01 Long term (current) use of anticoagulants; Z51.81 Encounter for therapeutic drug level monitoring | CPT/HCPCS: 85610; 99211 ==

== ENCOUNTER 2022-04-29 13:10 | Emergency (ER) | payer MEDICARE, SELFPAY ==
--- NOTE | ~2022-04-29 | XR_ITS ---
EXAMINATION: XR CHEST CLINICAL INFORMATION: Cough COMPARISON: CT chest 04/04/2021 and chest radiograph 03/19/2021 TECHNIQUE: Frontal view of the chest was obtained. FINDINGS: Compared to the prior chest radiograph, there is been some mild improvement in the prominence of the interstitial markings. Some tiny nodular densities persist. Chest CT demonstrated diffuse chronic interstitial disease as well. Heart size is normal. No acute consolidations or pleural effusions are seen. Scoliosis convex to right with degenerative changes spine. XR/XR chest 1V IMPRESSION: Chronic interstitial lung disease. No acute intrathoracic disease such as pneumonia.
[2022-04-29 13:25] VITALS: BP 129/77; PULSE 87; RESP 14; TEMP 36.4; O2SAT 97
[2022-04-29 13:34] VITALS: BP 113/68; BP 129/77; PULSE 80; PULSE 87; RESP 16; TEMP 36.4; O2SAT 95; BMI 24.4
--- NOTE | 2022-04-29 13:53 | ED.SKABFB ---
HPI - Skin/Abscess/Foreign Bdy General Chief complaint: General Medical Stated complaint: itchy Time Seen by Provider: 04/29/22 13:38 Source: patient Mode of arrival: EMS Limitations: no limitations History of Present Illness HPI narrative: 81 yo female with hx of PE switched to xarelto 2 weeks ago, breast cancer s/p mastectomy, anemia, here with c/o cough this AM but also itchy rash on chest wall x 3 days did not try any medications denies new exposures states it is itchy MD complaint: rash Onset (ago): day(s) (3) Tetanus up to date: yes Location: chest Severity: mild Quality: pruritic Relieving factors: none Exacerbating factors: none Context: none Associated symptoms: cough Treatments prior to arrival: none Related Data Home Medications Medication Instructions Recorded Confirmed omeprazole 20 mg capsule,delayed 20 mg PO DAILY 01/08/22 04/08/22 release methenamine hippurate 1 gram tablet 1 tab PO DAILY 03/10/22 04/08/22 Previous Rx's Medication Instructions Recorded magnesium oxide 400 mg PO BID #180 tabs 06/15/21 quetiapine 25 mg tablet 25 mg PO BID #180 tabs 06/22/21 folic acid 1 mg tablet 1 mg PO DAILY #90 tabs 08/28/21 gabapentin 300 mg capsule 300 mg PO DAILY #90 caps 03/03/22 metoprolol tartrate 25 mg tablet 12.5 mg PO BID 90 days #90 tabs 03/03/22 trimethoprim 100 mg tablet 100 mg PO Q12H 10 days #20 tabs 03/15/22 rivaroxaban 20 mg tablet (Xarelto) 20 mg PO DAILY #30 tabs 04/13/22 hydrocortisone 1 % topical cream 1 appl topical BID PRN itching 04/29/22 #28.35 grams Allergies Allergy/AdvReac Type Severity Reaction Status Date / Time sulfamethoxazole Allergy Severe Itching Verified 04/13/22 11:29 [From Bactrim] trimethoprim [From Bactrim] Allergy Severe Itching Verified 04/13/22 11:29 cortisone [Cortisone] Allergy Mild PT STATES, Verified 04/13/22 11:29 hx TB IT COULD AFFECT CRYSTALS IN LUNG prochlorperazine Allergy Mild LEG Verified 04/13/22 11:29 [From Compazine] NUMBNESS hydrochlorothiazide Allergy Unknown RASH Verified 04/13/22 11:29 levofloxacin [Levaquin] Allergy Unknown Wakefulness, Verified 04/13/22 11:29 nausea, shaking Sulfa (Sulfonamide AdvReac Intermediate rash Verified 04/13/22 11:29 Antibiotics) codeine AdvReac Unknown NAUSEA/VOMI Verified 04/13/22 11:29 TING chocolate Allergy Unknown severe Uncoded 04/13/22 11:29 headaches/vomiting Review of Systems Review of Systems: Constitutional : No Fever, No Chills ENT/Mouth : No sore throat, No Rhinorrhea Eyes: No Eye Pain, No Swelling, No Redness Cardiovascular : No Chest Pain, No SOB Respiratory : pos Cough, No Sputum Gastrointestinal : No Nausea, No Vomiting, No Diarrhea, No abdominal Pain Genitourinary : No Dysuria, No Hematuria Musculoskeletal : No joint pain, No Myalgias, No Joint Swelling Skin : No Skin Lesions, positive skin rash Neuro : No Weakness, No Numbness, No Headache Psych : No Anxiety, No Depression Heme/Lymph: No Bruising, No Bleeding,No Lymphadenopathy Endocrine : No Polyuria, No Polydipsia All other systems reviewed and are negative [facility] Past Medical History Attestation statement: The following information was validated with the patient. Medical History B12 deficiency Breast cancer Fatty liver, alcoholic GERD (gastroesophageal reflux disease) History of alcohol use History of pulmonary embolism History of right breast cancer HTN (hypertension) Hx of deep venous thrombosis Hx of hypercalcemia Hx of metabolic acidosis Hx of tuberculosis Hypomagnesemia Impaired fasting glucose Irritable bowel syndrome Osteoarthritis of left knee Osteoporosis Peripheral neuropathy Pernicious anemia Thrombocytopenia TIA (transient ischemic attack) Surgical History H/O right mastectomy History of appendectomy History of arthroplasty of left knee History of cataract surgery History of cystoscopy History of esophagogastroduodenoscopy (EGD) History of evacuation of hematoma History of knee replacement procedure of right knee History of left knee surgery History of lumpectomy of right breast History of tonsillectomy Hx of adenoidectomy Hx of colonoscopy S/P SASHA-BSO (total abdominal hysterectomy and bilateral salpingo-oophorectomy) Family History Family History Father No problems noted. Mother No problems noted. Social History Social History Household Members: Significant Other Housing: House Are you a primary patient centered care specialist to a significant other at home: No Do you presently have visiting nurse or other home services: No Alcohol intake: never Patient Tobacco Use Status: Never used Tobacco e-Cigarette/Vaping Use: Never Used Second Hand Smoke Exposure: No Use of substances other than those prescribed or required for medical reasons: No Advance Directives: Yes Advance Directives on File: Yes Advance Directives Date on File: 12/24/21 service: No Current occupational status: retired Cognitive needs: No Hearing needs: No Vision needs: Yes Physical Exam Vital Signs: Vital Signs: Last Vital Signs Temp 97.3 F 04/29/22 15:24 Pulse 77 04/29/22 15:24 Resp 18 04/29/22 15:24 BP 113/64 04/29/22 15:24 Pulse Ox 96 04/29/22 15:24 O2 Del Method 04/29/22 15:24 BMI result Body Mass Index 24.4 Appearance: Alert. Oriented X3. No acute distress. Eyes: Pupils equal, round and reactive to light. ENT: Pharynx normal. Neck: Normal inspection. Neck supple. CVS: Normal heart rate and rhythm. Pulses normal. Chest: scaly red rash anterior chest wall and anterior L shoulder - mild red patchy no vesicles no signs of swelling or drainage/edema Respiratory: No respiratory distress. Breath sounds normal. Abdomen: Soft and nontender. Skin: Skin warm and dry. Normal skin color. Normal skin turgor. Extremities: No lower extremity edema. No calf ttp Neuro: Oriented X 3. No motor deficit. No sensory deficit. Course Course Course Narrative: signed out to Dr. Jack pending MDM - Skin/Abscess/Foreign Bdy MDM Narrative Medical decision making narrative: 81 yo female with hx of PE switched to xarelto 2 weeks ago, breast cancer s/p mastectomy, anemia here with scaling rash that seems like a dermatitis in nature - denies any known exposure. Will start on hydrocortisone. Patient also c/o mild dry cough this AM - CXR and COVID swab ordered. Topical hydrocortisone ordered for rash does not appear vesicular or zoster in nature at this time and it is only pruritic. Lab Data Labs: Lab Results 04/29/22 Range/Units 13:53 COVID-19 ([facility]) Negative (Negative) COVID-19 Clin Com See Note Discharge Plan Discharge Clinical Impression: Contact dermatitis Qualifiers: Contact dermatitis type: unspecified Contact dermatitis trigger: unspecified trigger Qualified Code(s): L25.9 - Unspecified contact dermatitis, unspecified cause Instructions: Contact Dermatitis (ED) Additional Instructions: return to ED for any worsening symptoms or concerns Prescriptions: New hydrocortisone 1 % cream 1 appl topical BID PRN (Reason: itching) Qty: 28.35 0RF No Action magnesium oxide 400 mg magnesium tablet 400 mg PO BID Qty: 180 2RF quetiapine 25 mg tablet 25 mg PO BID Qty: 180 3RF omeprazole 20 mg capsule,delayed release(DR/EC) 20 mg PO DAILY gabapentin 300 mg capsule 300 mg PO DAILY Qty: 90 3RF metoprolol tartrate 25 mg tablet 12.5 mg PO BID 90 Days Qty: 90 3RF trimethoprim 100 mg tablet 100 mg PO Q12H 10 Days Qty: 20 0RF folic acid 1 mg Tablet 1 mg PO DAILY Qty: 90 3RF methenamine hippurate 1 gram tablet 1 tab PO DAILY Xarelto 20 mg tablet 20 mg PO DAILY Qty: 30 4RF Rx Instructions: must administer with evening meal
[2022-04-29 14:15] LABS: COVID-19 Test Negative (Negative); IDNOW Serial# 16C4AD1C
[2022-04-29] MEDS: Hydrocortisone 1 % Cream 28.35 GM TUBE 1 APPL TOPICAL (14:51)
[2022-04-29 15:12] VITALS: BP 139/69; PULSE 83; RESP 16; TEMP 36.3; O2SAT 98
[2022-04-29 15:24] VITALS: BP 113/64; PULSE 77; RESP 18; TEMP 36.3; O2SAT 96
--- NOTE | 2022-04-29 15:25 | PC.NURSE ---
this nurse took over for aspen, patient a&ox3, no current c/o pain or discomfort, pt states itching has been nearly relieved with hydrocortisone cream, vitals stable, pt attempted urine but misunderstood instructions to collect urine, call mayes within reach, will continue to monitor.
[2022-04-29 17:00] LABS: Appearance Urine CLOUDY; Color Urine YELLOW; Glucose Urine UA NEG (NEG); Leukocyte Esterase Urine 3+ (NEG); Nitrite Urine NEG (NEG); Specific Gravity - Urine <= 1.005 (1.005-1.025); UACC Culture Trigger YES; Urine Blood TRACE (NEG); Urine Ketones NEG (NEG); Urine Protein NEG (NEG-TRACE)
[2022-04-29 17:19] LABS: Bacteria Urine 4+ /LPF; Squamous Epithelial Cell Urine 2+ /LPF; WBC Urine TNTC /HPF (0-4)
== END 2022-04-29 18:21 | disposition home or self-care (01) ==
PROVIDERS: Emergency Provider Emergency Medicine; PCP Internal Medicine
DX: L25.9 Unspecified contact dermatitis, unspecified cause (principal); D64.9 Anemia, unspecified; R05.9 Cough, unspecified; Z20.822 Contact with and (suspected) exposure to COVID-19; Z79.899 Other long term (current) drug therapy
CPT/HCPCS: 71045; 81001; 81003; 87086; 87635; 99284

== ENCOUNTER → 2022-07-15 12:58 | Outpatient (BNVA) | payer MEDICARE, SELFPAY | PROVIDERS: PCP Internal Medicine; Visit Provider Urology | DX: N39.41 Urge incontinence (principal); N39.0 Urinary tract infection, site not specified; R35.1 Nocturia | CPT/HCPCS: 99212 ==

== ENCOUNTER → 2022-08-13 10:37 | Outpatient (BNVA) | payer MEDICARE, SELFPAY | PROVIDERS: PCP Internal Medicine; Visit Provider Urology | DX: N39.41 Urge incontinence (principal); N32.81 Overactive bladder; R35.1 Nocturia | CPT/HCPCS: 51798; 99212 ==

== ENCOUNTER → 2022-09-06 09:50 | Outpatient (BNVA) | payer MEDICARE, SELFPAY | PROVIDERS: PCP Internal Medicine; Visit Provider Orthopaedic Surgery | DX: M47.817 Spondylosis without myelopathy or radiculopathy, lumbosacral region (principal); M54.16 Radiculopathy, lumbar region; R26.9 Unspecified abnormalities of gait and mobility | CPT/HCPCS: 99212 ==

== ENCOUNTER 2022-09-07 10:03 | Outpatient (REF) | payer MEDICARE, SELFPAY ==
--- NOTE | ~2022-09-07 | MM_ITS ---
EXAMINATION: MM SCREENING DIGITAL BREAST TOMOSYNTHESIS, LEFT CLINICAL INFORMATION: Right mastectomy for breast cancer, 2009. Due for yearly. COMPARISON: Mammography: 09/03/2021, 08/27/2020, 08/22/2019 TECHNIQUE: Digital breast tomosynthesis is performed in both the craniocaudal and mediolateral oblique views along with computer-aided detection (CAD). Synthesized 2D images are generated from the tomosynthesis. FINDINGS: There are scattered areas of fibroglandular density (ACR BI-RADS breast composition Category b). There are no significant masses, abnormal calcifications, or other abnormalities. No developing density or architectural abnormality. Skin contours are smooth. MM/MM tomosynthesis screening LT IMPRESSION: No mammographic evidence of malignancy. ASSESSMENT: BI-RADS 1: Negative RECOMMENDATION: Routine annual mammography screening. This patient's information was entered into a reminder system with a target due date for their next mammogram.
== END 2022-09-07 10:04 | disposition home or self-care (01) ==
LOC: HO.MAMMO 10:03
PROVIDERS: PCP Internal Medicine; Visit Provider Internal Medicine
DX: Z12.31 Encounter for screening mammogram for malignant neoplasm of breast (principal)
CPT/HCPCS: 77063; 77067

== ENCOUNTER → 2022-10-22 09:59 | Outpatient (BNVA) | payer MEDICARE, SELFPAY | PROVIDERS: PCP Internal Medicine; Visit Provider Surgery | DX: Z85.3 Personal history of malignant neoplasm of breast (principal) | CPT/HCPCS: 99212 ==

== ENCOUNTER → 2022-11-01 10:51 | Outpatient (BNVA) | payer MEDICARE, SELFPAY | PROVIDERS: PCP Internal Medicine; Visit Provider Nurse Practitioner Family | DX: M47.26 Other spondylosis with radiculopathy, lumbar region (principal); M25.561 Pain in right knee; M25.562 Pain in left knee; M25.551 Pain in right hip; M25.552 Pain in left hip; G62.9 Polyneuropathy, unspecified; R53.1 Weakness; I87.2 Venous insufficiency (chronic) (peripheral) | CPT/HCPCS: 99202 ==

== ENCOUNTER → 2023-02-01 10:15 | Outpatient (BNVA) | payer MEDICARE, SELFPAY | PROVIDERS: PCP Internal Medicine; Visit Provider Surgery Vascular Surgery | DX: I83.12 Varicose veins of left lower extremity with inflammation (principal) | CPT/HCPCS: 99202 ==

== ENCOUNTER 2023-02-10 12:49 | Outpatient (REF) | payer MEDICARE, SELFPAY ==
--- NOTE | ~2023-02-10 | US_ITS ---
EXAMINATION: US LOWER EXTREMITY VENOUS (REFLUX EXAM), BILATERAL CLINICAL INDICATION: Varicose veins COMPARISON: None. TECHNIQUE: Color flow triplex imaging and compression Doppler was performed to evaluate both the deep and the superficial systems bilaterally. To evaluate the superficial system, the examination was performed in the upright position. Color-flow Doppler ultrasound and compression ultrasound were utilized. In addition, maneuvers were utilized to demonstrate reflux. FINDINGS: 1. DEEP VENOUS ULTRASOUND OF THE RIGHT LOWER EXTREMITY: Common Femoral Vein: Compressible, normal respiratory variation and augmented flow. Femoral Vein: Compressible, normal color flow and augmentation. Popliteal Vein: Compressible, normal augmentation. Deep Reflux: Reflux within the popliteal vein. 1156 ms There is no evidence of a Ryan's cyst. 2. SUPERFICIAL ULTRASOUND WITH DOPPLER OF RIGHT LOWER EXTREMITY: GREAT SAPHENOUS VEIN: Saphenofemoral Junction: 0.7 cm; Reflux: 0 ms Proximal Thigh: 0.5 cm; Reflux: 0 ms Mid Thigh: 0.4 cm; Reflux: 0 ms Above Knee: 0.4 cm; Reflux: 0 ms At Knee: 0.3 cm; Reflux: 0 ms Below Knee: 0.3 cm; Reflux: 384 ms Mid Calf: 0.3 cm; Reflux: 0 ms Ankle: 0.4 cm; Reflux: 0 ms DUPLICATED MEDIAL GREAT SAPHENOUS VEIN: Diameter: None Imaged Reflux: NA DUPLICATED LATERAL GREAT SAPHENOUS VEIN: Diameter: None Imaged Reflux: NA SMALL SAPHENOUS VEIN: Proximal: 0.5 cm; Reflux: 0 ms Distal: 0.2 cm; Reflux: 0 ms VEIN OF GIACOMINI: None Imaged. PERFORATORS: Location: Proximal calf Size: 0.1 cm Reflux: NA Location: 22 cm from the heel Size: 0.3 cm Reflux: 1584 ms VARICOSITIES: Location: None Imaged Size: NA Reflux: NA 3. DEEP VENOUS ULTRASOUND OF THE LEFT LOWER EXTREMITY: Common Femoral Vein: Compressible, normal respiratory variation and augmented flow. 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 Deep Reflux: Reflux within the popliteal vein. 968 ms There is no evidence of a Ryan's cyst. 4. SUPERFICIAL ULTRASOUND WITH DOPPLER OF LEFT LOWER EXTREMITY: GREAT SAPHENOUS VEIN: Saphenofemoral Junction: 0.7 cm; Reflux: 0 ms Proximal Thigh: 0.7 cm; Reflux: 0 ms Mid Thigh: 0.6 cm; Reflux: 0 ms Above Knee: 0.6 cm; Reflux: 0 ms At Knee: 0.5 cm; Reflux: 0 ms Below Knee: 0.5 cm; Reflux: 0 ms Mid Calf: 0.4 cm; Reflux: 0 ms Ankle: 0.4 cm; Reflux: 0 ms DUPLICATED MEDIAL GREAT SAPHENOUS VEIN: Diameter: None Imaged Reflux: NA DUPLICATED LATERAL GREAT SAPHENOUS VEIN: Proximal: 0.2 cm; Reflux: 0 ms Distal: 0.2 cm; Reflux: 0 ms SMALL SAPHENOUS VEIN: Proximal: 0.1 cm; Reflux: 0 ms Distal: 0.1 cm; Reflux: 0 ms VEIN OF GIACOMINI: None Imaged. PERFORATORS: Location: Distal thigh Size: 0.2 cm Reflux: NA VARICOSITIES: Location: Mid thigh Size: 0.4 cm Reflux: NA Location: Proximal calf Size: 0.3 cm Reflux: NA US/US venous duplex LE BI IMPRESSION: 1. Bilateral deep venous reflux in the popliteal veins. 2. 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 3. Bilateral lower extremity varicosities.
== END 2023-02-10 12:50 | disposition home or self-care (01) ==
LOC: HO.US 12:49
PROVIDERS: PCP Internal Medicine; Visit Provider Surgery Vascular Surgery
DX: I83.12 Varicose veins of left lower extremity with inflammation (principal)
CPT/HCPCS: 93970

== ENCOUNTER 2023-02-15 07:26 | Outpatient (REF) | payer MEDICARE, SELFPAY ==
[2023-02-15 11:28] LABS: MANUAL DIFF FLAG NO
[2023-02-15 12:06] LABS: Basophils Percent Auto 0.5 % (0-2); Eosinophils Percent Auto 0.7 % (0-4); Hematocrit 41.5 % (37.0-47.0); Hemoglobin 13.5 g/dl (12.0-16.0); Imm Gran Abs Auto 0.03 X10*3/uL (0.00-0.03); Imm Gran Pct Auto 0.5 % (0.0-0.4); Lymphocytes Percent Auto 17.6 % (20-40); Mean Corpuscular HGB Conc 32.5 g/dl (31.0-35.0); Mean Corpuscular Hemoglobin 34.7 pg (27.0-33.0); Mean Corpuscular Volume 106.7 fL (80.0-98.0); Monocytes Absolute Auto 0.8 X10*3/uL (0.1-1.2); Monocytes Percent Auto 12.8 % (2-11); Neutrophils Percent Auto 67.9 % (45-73); Platelet Count 130 X10*3/uL (160-400); Red Blood Count 3.89 X10*6/uL (4.20-5.50); Red Cell Distribution Width 13.2 % (11.0-16.0); White Blood Count 5.9 X10*3/uL (4.8-10.8)
[2023-02-15 13:26] LABS: Alanine Aminotransferase 49 U/L (0-31); Alkaline Phosphatase 129 U/L (39-117); Anion Gap 15 (12-20); Aspartate Amino Transferase 81 U/L (5-31); Bilirubin Total 0.9 mg/dL (0.0-1.0); Blood Urea Nitrogen 15 mg/dL (9-16); Calcium 9.1 mg/dL (8.4-10.2); Carbon Dioxide 27 mmol/L (22-29); Chloride 103 mmol/L (96-108); Cholesterol 259 mg/dL; Estimated Glomerular Filt Rate 46; Glucose Random 93 mg/dL (60-115); HDL Cholesterol 90 mg/dL; LDL Cholesterol Calculated 149 mg/dl; Magnesium 1.9 mg/dL (1.6-2.6); Potassium 4.3 mmol/L (3.3-5.1); Sodium 141 mmol/L (135-145); Triglycerides 103 mg/dL
[2023-02-15 14:08] LABS: Folate 16.1 ng/mL (> or = 4.0); Free T4 (Free Thyroxine) 0.83 ng/dL (0.71-1.85); Thyroid Stimulating Hormone 2.98 uIU/mL (0.32-4.0); Vitamin B12 > 2000 pg/mL (200-900); Vitamin D 25-OH Total 9.4 ng/mL (>30)
[2023-02-15 18:14] LABS: Appearance Urine Cloudy; Color Urine Yellow; Glucose Urine UA Negative (Negative); Leukocyte Esterase Urine Small (1+) (Negative); Nitrite Urine Negative (Negative); UMIC TRIGGER UA YES; Urine Blood Negative (Negative); Urine Ketones Trace mg/dL (Negative); Urine Protein Trace mg/dL (Neg-Trace)
[2023-02-15 18:19] LABS: Bacteria Urine 4+ (None Seen); Hyaline Casts Urine 0-2 /LPF (0-2); RBC Urine 0-2 /HPF (0-2)
== END 2023-02-15 07:27 | disposition home or self-care (01) ==
LOC: HO.HMGCLDS 07:26
PROVIDERS: PCP Internal Medicine; Visit Provider Internal Medicine
DX: D51.9 Vitamin B12 deficiency anemia, unspecified (principal); N32.81 Overactive bladder; E78.00 Pure hypercholesterolemia, unspecified; I10 Essential (primary) hypertension; M85.80 Other specified disorders of bone density and structure, unspecified site; E55.9 Vitamin D deficiency, unspecified
CPT/HCPCS: 36415; 80053; 80061; 81001; 82306; 82607; 82746; 83735; 84439; 84443; 85025

== ENCOUNTER → 2023-03-08 13:52 | Outpatient (BNVA) | payer MEDICARE, SELFPAY | PROVIDERS: PCP Internal Medicine; Visit Provider Surgery Vascular Surgery | DX: I87.2 Venous insufficiency (chronic) (peripheral) (principal) | CPT/HCPCS: 99212 ==

== ENCOUNTER 2023-04-11 16:50 | Inpatient (IN) | payer MEDICARE, SELFPAY ==
--- NOTE | ~2023-04-11 | XR_ITS ---
EXAMINATION: XR CHEST CLINICAL INFORMATION: Stroke COMPARISON: 04/29/2022 TECHNIQUE: Frontal view of the chest was obtained. FINDINGS: The lungs are hypoventilated compared to the prior study. Some chronic reticular nodular markings are seen and accentuated. Heart size is normal. No evidence of gross CHF. No focal consolidations or large pleural effusions. XR/XR chest 1V IMPRESSION: No acute intrathoracic disease.
--- NOTE | ~2023-04-11 | CT_ITS ---
EXAMINATION: CT HEAD WITHOUT CONTRAST CLINICAL INFORMATION: Altered mental status. COMPARISON: MRI of the head 04/07/2021 TECHNIQUE: Contiguous axial imaging was performed from the skull base to vertex without intravenous administration of contrast. Coronal and sagittal reformatted images are performed at the CT scanner. [This CT examination was performed using dose optimization techniques as appropriate, variously including the following: *Automated exposure control *Adjustment of mA and/or kV according to patient size (this includes techniques or standardized protocols for targeted exams where dose is matched to indication/reason for exam; i.e. extremities or head) *Use of iterative reconstruction technique] DLP: 627 mGy-cm. FINDINGS: There is no evidence of acute intracranial hemorrhage or territorial infarction. No abnormal mass-effect or midline shift is seen. Carias to white matter differentiation is well preserved. No extra-axial fluid collections are identified. There is generalized global volume loss. There is moderate prominence of the ventricles and the sulci . There is mild hypodensity of the periventricular white matter due to chronic small vessel ischemic disease. There are vascular calcifications of the internal carotid arteries bilaterally. There is no osseous abnormality. The mastoid air cells and visualized portions of the paranasal sinuses are well-aerated. CT/CT head for stroke IMPRESSION: No acute intracranial pathology. This critical result was discussed with Dr Avina at 04/11/2023, 5:25 PM. It was ascertained that the content and urgency of the report was understood at the time of direct communication.
--- NOTE | ~2023-04-11 | CT_ITS ---
EXAMINATION: CT ANGIOGRAM NECK WITH CONTRAST CT ANGIOGRAM BRAIN WITH CONTRAST CLINICAL INFORMATION: Mental status change. COMPARISON: Brain MRI 04/07/2021. TECHNIQUE: Test bolus sequences followed by intravenous administration 70 mL of Omnipaque 350. Helical imaging was performed in the axial plane from the thoracic inlet to the skull vertex. Delayed postcontrast imaging of the head was also performed. The data was processed at the angio technologist workstation for generation of MIP sequences. Angled MIPs and volume rendered reformatted images were also generated at an offline 3D workstation. Stenoses are assessed in accordance with NASCET criteria unless otherwise indicated. This CT examination was performed using dose optimization techniques as appropriate, variously including the following: *Automated exposure control *Adjustment of mA and/or kV according to patient size (this includes techniques or standardized protocols for targeted exams where dose is matched to indication/reason for exam; i.e. extremities or head) *Use of iterative reconstruction technique DLP: 1347 mGy-cm FINDINGS: Head CT: There is no intracranial hemorrhage, large acute infarction, or mass lesion. The ventricles are normal in size and configuration without evidence of hydrocephalus. There is no abnormal enhancement. Mild chronic microangiopathic changes are seen in the white matter. The dural venous sinuses appear patent. The visualized paranasal sinuses and mastoid air cells are clear. Neck CTA: Aortic arch and great vessel origins are patent. Atheromatous changes are seen at the left carotid bifurcation where there is prominent noncalcified and calcified plaque but without significant stenosis. Both cervical ICAs are patent. Both vertebral arteries are patent. Head CTA: No large vessel occlusion is seen. There is disposition of both ortho rn. Both ortho rn are patent. The ACAs and MCAs are patent. The collaterals appear symmetric. Non-vascular findings: There is pleural parenchymal thickening in the lung apices. No significant cervical soft tissue abnormality is seen. Degenerative changes are seen in the spine. CT/CT angio head neck IMPRESSION: CT HEAD: No intracranial hemorrhage or large acute infarction. CTA NECK: No hemodynamically significant stenosis in the major arteries of the neck. CTA HEAD: No large vessel occlusion or significant stenosis within the intracranial circulation. This critical result was discussed with Dr. Jack on 04/11/2023 7:57 PM, and it was ascertained that the content and urgency of the report was understood at the time of direct communication.
--- NOTE | 2023-04-11 16:59 | ECG_ITS ---
Test Reason : STROKE Blood Pressure : / mmHG Vent. Rate : 089 BPM Atrial Rate : 089 BPM P-R Int : 140 ms QRS Dur : 090 ms QT Int : 396 ms P-R-T Axes : 042 008 040 degrees QTc Int : 481 ms Artifact in tracing Normal sinus rhythm No gross abnormalities. When compared with ECG of 10-APR-2021 08:21, No significant change was found Referred By: Jacque Haque Electronically Signed By:WESTON AMARO
[2023-04-11 17:06] VITALS: BP 157/88; PULSE 83; RESP 14; TEMP 36.2; O2SAT 98; BMI 24.2
--- NOTE | 2023-04-11 17:09 | ED_ITS ---
HPI - Neuro Symptoms/Deficit General Chief Complaint: Neuro Symptoms/Deficit Stated Complaint: STROKE ALERT,CATATONIC,LKWT 45MIN,XARELTO PER EMS Time Seen by Provider: 04/11/23 17:14 Source: patient and EMS Mode of arrival: EMS Limitations: no limitations History of Present Illness HPI Narrative: 82-year-old female past medical history significant for hypertension, dementia, PE patient is on Xarelto, could not wake the patient of the couch today was sent to emergency department for further evaluation patient arrived to the ED as a stroke protocol, patient is nonverbal in the emergency department, 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 No acute neurological deficit is appreciated on patient's exam or concern for the patient. Related Data Home Medications Medication Instructions Recorded Confirmed omeprazole 20 mg capsule,delayed 20 mg PO DAILY 01/08/22 10/27/22 release Previous Rx's Medication Instructions Recorded rivaroxaban 20 mg tablet (Xarelto) 20 mg PO DAILY #90 tabs 08/06/22 folic acid 1 mg tablet 1 mg PO DAILY #90 tabs 09/02/22 right mastectomy bra #2 ea 10/22/22 lidocaine 5 % topical patch 2 patch topical DAILY pain 30 days 11/01/22 #60 ea estradiol 0.01% (0.1 mg/gram) See Rx Instructions .Route 3XW 30 01/12/23 vaginal cream days #42.5 grams amoxicillin 875 mg tablet 875 mg PO BID #14 tabs 02/16/23 quetiapine 50 mg tablet 50 mg PO BEDTIME #30 tabs 02/18/23 gabapentin 300 mg capsule 300 mg PO DAILY pain 30 days #90 02/28/23 caps metoprolol tartrate 25 mg tablet 12.5 mg PO BID 90 days #90 tabs 02/28/23 magnesium oxide 400 mg PO BID #180 tabs 03/10/23 Allergies Allergy/AdvReac Type Severity Reaction Status Date / Time sulfamethoxazole Allergy Severe Itching Verified 03/08/23 13:58 [From Bactrim] trimethoprim [From Bactrim] Allergy Severe Itching Verified 03/08/23 13:58 cortisone [Cortisone] Allergy Mild PT STATES, Verified 03/08/23 13:58 hx TB IT COULD AFFECT CRYSTALS IN LUNG prochlorperazine Allergy Mild LEG Verified 03/08/23 13:58 [From Compazine] NUMBNESS hydrochlorothiazide Allergy Unknown RASH Verified 03/08/23 13:58 levofloxacin [Levaquin] Allergy Unknown Wakefulness, Verified 03/08/23 13:58 nausea, shaking Sulfa (Sulfonamide AdvReac Intermediate rash Verified 03/08/23 13:58 Antibiotics) codeine AdvReac Unknown NAUSEA/VOMI Verified 03/08/23 13:58 TING chocolate Allergy Unknown severe Uncoded 03/08/23 13:58 headaches/vomiting Review of Systems Review of Systems: All other systems are reviewed and are negative Constitutional: Reports as per HPI and Reports no additional constitutional complaints Eyes: Reports as per HPI and Reports no additional eye complaints Reports system reviewed and no additional complaints, except as documented Cardiovascular: Reports as per HPI and Reports no additional cardiovascular complaints Respiratory: Reports as per HPI and Reports no additional respiratory complaints Gastrointestinal: Reports as per HPI and Reports no additional gastrointestinal complaints Genitourinary: Reports no additional female genitourinary complaints Musculoskeletal: Reports no additional musculoskeletal complaints Skin/Breast: Reports system reviewed and no additional complaints, except as docu Psychiatric: Reports no additional psychiatric complaints Endocrine: Reports no additional endocrine complaints Hematologic/Lymphatic: Reports no additional hematologic/lymphatic complaints Allergic/Immunologic: Reports no additional allergic/immunologic complaints Reports system reviewed and no additional complaints, except as documented and Reports Abnormal speech present [facility] Past Medical History Medical History B12 deficiency Breast cancer Fatty liver, alcoholic GERD (gastroesophageal reflux disease) History of alcohol use History of pulmonary embolism History of right breast cancer HTN (hypertension) Hx of deep venous thrombosis Hx of hypercalcemia Hx of metabolic acidosis Hx of tuberculosis Hypomagnesemia Impaired fasting glucose Irritable bowel syndrome Osteoarthritis of left knee Osteoporosis Peripheral neuropathy Pernicious anemia Thrombocytopenia TIA (transient ischemic attack) Surgical History H/O right mastectomy History of appendectomy History of arthroplasty of left knee History of cataract surgery History of cystoscopy History of esophagogastroduodenoscopy (EGD) History of evacuation of hematoma History of knee replacement procedure of right knee History of left knee surgery History of lumpectomy of right breast History of tonsillectomy Hx of adenoidectomy Hx of colonoscopy S/P SASHA-BSO (total abdominal hysterectomy and bilateral salpingo-oophorectomy) Family History Family History Father No problems noted. Mother No problems noted. Other No family history of cancer Social History Social History Household Members: Spouse Housing: House Are you a primary geriatric personal care aide to a significant other at home: No Do you presently have visiting nurse or other home services: No Alcohol intake: current Alcohol intake frequency: 0-2 drinks per day Alcohol type: other Patient Tobacco Use Status: Never used Tobacco e-Cigarette/Vaping Use: Never Used Second Hand Smoke Exposure: No Advance Directives: Yes Advance Directives on File: Yes Advance Directives Date on File: 12/24/21 service: No Current occupational status: retired Cognitive needs: No Hearing needs: No Vision needs: Yes Physical Exam Vital Signs: Vital Signs: Last Vital Signs Temp 97.5 F 04/11/23 17:59 Pulse 83 04/11/23 17:06 Resp 14 04/11/23 17:06 BP 157/88 H 04/11/23 17:06 Pulse Ox 98 04/11/23 17:06 O2 Del Method Room Air 04/11/23 17:06 BMI result Body Mass Index 24.2 Vital signs have been reviewed as appeared to be correct. Blood pressure normal. Heart rate normal. Respiration rate normal. Temperature normal. O xygen saturation normal. Limited exam patient is not cooperative with the examiner. Appearance: No acute distress. Head: Normal external exam. Normocephalic. Atraumatic. No Burt signs noted. No raccoon eyes noted Eyes: PERRLA. EOMI. Conjunctiva and sclera normal. Eyelids normal. ENT: TM's Normal. Pharynx normal. Uvula midline. Moist mucous membranes. No trismus noted. No drooling noted. No muffled voice noted. Neck: Normal inspection. Neck supple. FROM. No adenopathy. Thyroid Normal. No meningeal signs. No neck mass noted. CVS: Normal heart rate and rhythm. Heart sound normal. No murmurs noted. Pulses normal throughout. Respiratory: No respiratory distress. Painless inspiration. Breath sounds normal. No wheezes/rales/rhonchi noted. Chest nontender. No accessory muscle usage noted or decreased air movement noted. Abdomen: Soft and nontender. Bowel sounds normal in all 4 quadrants. No distention noted. No organomegaly noted. No visible injury noted. Back: No CVA tenderness. Full range of motion noted. Skin: Skin warm and dry. Normal skin color. Normal skin turgor. No rashes/lesions/lacerations noted. Extremities: No lower extremity edema. Extremities exhibit normal range of motion. Extremities nontender. Neuro: Patient is mute with no communication. Cranial nerve exam: II-XII are grossly intact No motor deficit. No sensory deficit. Reflexes normal. Course Course Course Narrative: 82-year-old female came in for acute mental status change due to UTI, patient had history of UTI causing confusion in the past., patient's presentation today is not likely to be stroke related. Medical Decision Making Differential Diagnosis Differential Diagnoses: The differential diagnosis associated with the presentation includes (Mental status change, UTI, electrolyte abnormalities, dehydration, severe anemia.) Admission/Observation Consideration of admission/observation: Escalation of care including admission/observation considered Lab Data MDM Lab Attestation statement: I reviewed the patient's lab results. 04/11/23 17:27 04/11/23 17:29 Labs: Lab Results 04/11/23 04/11/23 04/11/23 Range/Units 17:10 17:13 17:26 WBC (4.8-10.8) X10*3/uL RBC (4.20-5.50) X10*6/uL Hgb (12.0-16.0) g/dl Hct (37.0-47.0) % MCV (80.0-98.0) fL MCH (27.0-33.0) pg MCHC (31.0-35.0) g/dl RDW (11.0-16.0) % Plt Count (160-400) X10*3/uL MPV (9.4-12.3) fL Immature Gran % (Auto) (0.0-0.4) % Neut % (Auto) (45-73) % Lymph % (Auto) (20-40) % Caswell % (Auto) (2-11) % Eos % (Auto) (0-4) % Baso % (Auto) (0-2) % Lymph # (Auto) (1.2-4.9) X10*3/uL Caswell # (Auto) (0.1-1.2) X10*3/uL Eos # (Auto) (0.0-0.4) X10*3/uL Baso # (Auto) (0.0-0.2) X10*3/uL Abs Immat Gran (auto) (0.00-0.03) X10*3/uL Absolute Neuts (auto) (2.0-8.3) x10*3/uL Absolute Nucleated RBC (0.0-0.012) X10*3/uL Nucleated RBC % (auto) (0.0-0.2) /100WBC PT 12.6 (10.0-13.1) SEC Whole Blood PT 14.1 H (11.1-13.5) sec INR 1.1 (0.9-1.1) Whole Blood INR 1.2 H (0.9-1.1) APTT 36.0 (26.0-36.4) SEC Sodium (135-145) mmol/L Potassium (3.3-5.1) mmol/L Chloride (96-108) mmol/L Carbon Dioxide (22-29) mmol/L Anion Gap (12-20) BUN (9-16) mg/dL Creatinine (0.5-1.4) mg/dL Estim Creat Clear Calc Estimated GFR POC Glucose 86 (60-115) mg/dL Random Glucose (60-115) mg/dL Lactic Acid (0.5-2.0) mmol/L Calcium (8.4-10.2) mg/dL Total Creatine Kinase (26-140) U/L Troponin I High Sens (<3.5-17.0) ng/L Urine Color Urine Appearance Urine pH (5.0-9.0) Ur Specific Waldron (1.005-1.025) Urine Protein (Neg-Trace) mg/dL Urine Glucose (UA) (Negative) mg/dL Urine Ketones (Negative) mg/dL Urine Blood (Negative) Urine Nitrite (Negative) Ur Leukocyte Esterase (Negative) Urine RBC (0-2) /HPF Urine WBC (0-5) /HPF Ur Squamous Epith Cells (0-2) /HPF Urine Bacteria (None Seen) Hyaline Casts (0-2) /LPF 04/11/23 04/11/23 04/11/23 Range/Units 17:26 17:26 17:27 WBC 4.2 L (4.8-10.8) X10*3/uL RBC 3.57 L (4.20-5.50) X10*6/uL Hgb 12.5 (12.0-16.0) g/dl Hct 37.7 (37.0-47.0) % MCV 105.6 H (80.0-98.0) fL MCH 35.0 H (27.0-33.0) pg MCHC 33.2 (31.0-35.0) g/dl RDW 13.6 (11.0-16.0) % Plt Count 120 L (160-400) X10*3/uL MPV 10.4 (9.4-12.3) fL Immature Gran % (Auto) 0.2 (0.0-0.4) % Neut % (Auto) 52.0 (45-73) % Lymph % (Auto) 29.7 (20-40) % Caswell % (Auto) 16.0 H (2-11) % Eos % (Auto) 1.2 (0-4) % Baso % (Auto) 0.9 (0-2) % Lymph # (Auto) 1.3 (1.2-4.9) X10*3/uL Caswell # (Auto) 0.7 (0.1-1.2) X10*3/uL Eos # (Auto) 0.1 (0.0-0.4) X10*3/uL Baso # (Auto) 0.0 (0.0-0.2) X10*3/uL Abs Immat Gran (auto) 0.01 (0.00-0.03) X10*3/uL Absolute Neuts (auto) 2.2 (2.0-8.3) x10*3/uL Absolute Nucleated RBC 0.000 (0.0-0.012) X10*3/uL Nucleated RBC % (auto) 0.0 (0.0-0.2) /100WBC PT (10.0-13.1) SEC Whole Blood PT (11.1-13.5) sec INR (0.9-1.1) Whole Blood INR (0.9-1.1) APTT (26.0-36.4) SEC Sodium (135-145) mmol/L Potassium (3.3-5.1) mmol/L Chloride (96-108) mmol/L Carbon Dioxide (22-29) mmol/L Anion Gap (12-20) BUN (9-16) mg/dL Creatinine (0.5-1.4) mg/dL Estim Creat Clear Calc Estimated GFR POC Glucose (60-115) mg/dL Random Glucose (60-115) mg/dL Lactic Acid 3.3 H* (0.5-2.0) mmol/L Calcium (8.4-10.2) mg/dL Total Creatine Kinase (26-140) U/L Troponin I High Sens < 2.7 (<3.5-17.0) ng/L Urine Color Urine Appearance Urine pH (5.0-9.0) Ur Specific Waldron (1.005-1.025) Urine Protein (Neg-Trace) mg/dL Urine Glucose (UA) (Negative) mg/dL Urine Ketones (Negative) mg/dL Urine Blood (Negative) Urine Nitrite (Negative) Ur Leukocyte Esterase (Negative) Urine RBC (0-2) /HPF Urine WBC (0-5) /HPF Ur Squamous Epith Cells (0-2) /HPF Urine Bacteria (None Seen) Hyaline Casts (0-2) /LPF 04/11/23 04/11/23 Range/Units 17:29 17:48 WBC (4.8-10.8) X10*3/uL RBC (4.20-5.50) X10*6/uL Hgb (12.0-16.0) g/dl Hct (37.0-47.0) % MCV (80.0-98.0) fL MCH (27.0-33.0) pg MCHC (31.0-35.0) g/dl RDW (11.0-16.0) % Plt Count (160-400) X10*3/uL MPV (9.4-12.3) fL Immature Gran % (Auto) (0.0-0.4) % Neut % (Auto) (45-73) % Lymph % (Auto) (20-40) % Caswell % (Auto) (2-11) % Eos % (Auto) (0-4) % Baso % (Auto) (0-2) % Lymph # (Auto) (1.2-4.9) X10*3/uL Caswell # (Auto) (0.1-1.2) X10*3/uL Eos # (Auto) (0.0-0.4) X10*3/uL Baso # (Auto) (0.0-0.2) X10*3/uL Abs Immat Gran (auto) (0.00-0.03) X10*3/uL Absolute Neuts (auto) (2.0-8.3) x10*3/uL Absolute Nucleated RBC (0.0-0.012) X10*3/uL Nucleated RBC % (auto) (0.0-0.2) /100WBC PT (10.0-13.1) SEC Whole Blood PT (11.1-13.5) sec INR (0.9-1.1) Whole Blood INR (0.9-1.1) APTT (26.0-36.4) SEC Sodium 140 (135-145) mmol/L Potassium 4.6 (3.3-5.1) mmol/L Chloride 102 (96-108) mmol/L Carbon Dioxide 25 (22-29) mmol/L Anion Gap 18 (12-20) BUN 12 (9-16) mg/dL Creatinine 1.03 (0.5-1.4) mg/dL Estim Creat Clear Calc 39.2 Estimated GFR 52 POC Glucose (60-115) mg/dL Random Glucose 86 (60-115) mg/dL Lactic Acid (0.5-2.0) mmol/L Calcium 9.1 (8.4-10.2) mg/dL Total Creatine Kinase 81 (26-140) U/L Troponin I High Sens (<3.5-17.0) ng/L Urine Color Yellow Urine Appearance Cloudy Urine pH 5.5 (5.0-9.0) Ur Specific Waldron <= 1.005 (1.005-1.025) Urine Protein Negative (Neg-Trace) mg/dL Urine Glucose (UA) Negative (Negative) mg/dL Urine Ketones Negative (Negative) mg/dL Urine Blood Negative (Negative) Urine Nitrite Negative (Negative) Ur Leukocyte Esterase Large (3+) H (Negative) Urine RBC 0-2 (0-2) /HPF Urine WBC 21-50 H (0-5) /HPF Ur Squamous Epith Cells 11-20 (0-2) /HPF Urine Bacteria 4+ (None Seen) Hyaline Casts 0-2 (0-2) /LPF Independent Interpretation I performed an independent interpretation of an: Plain X-Ray (Chest: No acute intrathoracic pathology.) and CT Scan (Head: No acute intra cranial pathology.) Radiology Impression Discussion of test interpretation with radiology: I have reviewed the radiologist's reading. Discharge Plan Discharge Clinical Impression: Urinary tract infection, Altered mental status Patient Disposition: Admitted As Inpatient Prescriptions: No Action omeprazole 20 mg capsule,delayed release(DR/EC) 20 mg PO DAILY Xarelto 20 mg tablet 20 mg PO DAILY Qty: 90 3RF Rx Instructions: must administer with evening meal folic acid 1 mg Tablet 1 mg PO DAILY Qty: 90 3RF estradiol 0.01 % (0.1 mg/gram) cream See Rx Instructions .Route 3XW 30 Days Qty: 42.5 2RF Rx Instructions: pea-sized to urethra 3 times a week amoxicillin 875 mg tablet 875 mg PO BID Qty: 14 0RF gabapentin 300 mg capsule 300 mg PO DAILY 30 Days Qty: 90 3RF metoprolol tartrate 25 mg tablet 12.5 mg PO BID 90 Days Qty: 90 3RF magnesium oxide 400 mg magnesium tablet 400 mg PO BID Qty: 180 2RF quetiapine 50 mg tablet 50 mg PO BEDTIME Qty: 30 3RF (DME) right mastectomy bra See Rx Instructions .Route .MEDSUPPLY Qty: 2 0RF Rx Instructions: As directed lidocaine 5 % adhesive patch,medicated 2 patch topical DAILY 30 Days Qty: 60 1RF Rx Instructions: Apply to affected areas up to 12 hours per day
[2023-04-11 17:20] LABS: Prothrombin Time Whole Bld POC 14.1 sec (11.1-13.5); ~PT, ~INR - Anti Coag Clinic 1.2 (0.9-1.1)
[2023-04-11 17:21] LABS: Glucose, Whole Blood 86 mg/dL (60-115)
[2023-04-11 17:36] LABS: MANUAL DIFF FLAG NO
[2023-04-11 17:37] LABS: Basophils Percent Auto 0.9 % (0-2); Eosinophils Absolute Auto 0.1 X10*3/uL (0.0-0.4); Eosinophils Percent Auto 1.2 % (0-4); Hematocrit 37.7 % (37.0-47.0); Hemoglobin 12.5 g/dl (12.0-16.0); Imm Gran Abs Auto 0.01 X10*3/uL (0.00-0.03); Imm Gran Pct Auto 0.2 % (0.0-0.4); Lymphocytes Absolute Auto 1.3 X10*3/uL (1.2-4.9); Lymphocytes Percent Auto 29.7 % (20-40); Mean Corpuscular HGB Conc 33.2 g/dl (31.0-35.0); Mean Corpuscular Volume 105.6 fL (80.0-98.0); Mean Platelet Volume 10.4 fL (9.4-12.3); Monocytes Absolute Auto 0.7 X10*3/uL (0.1-1.2); Neutrophils Absolute Auto 2.2 x10*3/uL (2.0-8.3); Platelet Count 120 X10*3/uL (160-400); Red Blood Count 3.57 X10*6/uL (4.20-5.50); Red Cell Distribution Width 13.6 % (11.0-16.0); White Blood Count 4.2 X10*3/uL (4.8-10.8)
[2023-04-11 17:51] LABS: INTERNATIONAL NORM RATIO 1.1 (0.9-1.1); Prothrombin Time 12.6 SEC (10.0-13.1)
[2023-04-11 17:54] LABS: Lactic Acid 3.3 mmol/L (0.5-2.0)
[2023-04-11 17:57] LABS: Anion Gap 18 (12-20); Blood Urea Nitrogen 12 mg/dL (9-16); Calcium 9.1 mg/dL (8.4-10.2); Carbon Dioxide 25 mmol/L (22-29); Chloride 102 mmol/L (96-108); Creatinine Clr Calc Pharmacy 39.2; Estimated Glomerular Filt Rate 52; Glucose Random 86 mg/dL (60-115); Potassium 4.6 mmol/L (3.3-5.1); Sodium 140 mmol/L (135-145)
--- NOTE | 2023-04-11 17:58 | PC.NURSE ---
picture of buttocks wound sent to md giron for addition to chart. pt is now speaking and saying cold . rectal temp 97.5
[2023-04-11 17:59] VITALS: TEMP 36.4
[2023-04-11 18:04] LABS: Appearance Urine Cloudy; Color Urine Yellow; Glucose Urine UA Negative (Negative); Leukocyte Esterase Urine Large (3+) (Negative); Nitrite Urine Negative (Negative); PH 5.5 (5.0-9.0); Specific Gravity - Urine <= 1.005 (1.005-1.025); UMIC TRIGGER UACC YES; Urine Blood Negative (Negative); Urine Ketones Negative (Negative); Urine Protein Negative (Neg-Trace)
[2023-04-11 18:05] LABS: Troponin-I High Sensitivity < 2.7 ng/L (<3.5-17.0)
--- NOTE | 2023-04-11 18:16 | PC.NURSE ---
aware of lactic
[2023-04-11 18:17] LABS: Bacteria Urine 4+ (None Seen); Hyaline Casts Urine 0-2 /LPF (0-2); RBC Urine 0-2 /HPF (0-2); UACC Culture Trigger YES; WBC Urine 21-50 /HPF (0-5)
[2023-04-11 19:04] VITALS: BP 164/86; PULSE 97; RESP 18; TEMP 36.7; O2SAT 97
--- NOTE | 2023-04-11 19:06 | PM.IMHP ---
History of Present Illness Date of Service: 04/11/23 Chief Complaint: Altered mentation This is a 82-year-old female with pertinent history of mood disorder, history of PE on Xarelto, dementia, gastroesophageal reflux disease, recurrent UTI, history of breast cancer (2006) in remission who was brought to the emergency department for evaluation of confusion. As per the at bedside, he was unable to wake up his from her afternoon nap. Patient is a poor historian and although awake at the time of my evaluation, is only oriented to place and person. states that patient was very drowsy and was not coherent and hence he decided to bring her to the ER. Does have a history of UTIs in the past. The patient does endorse increased frequency and hesitancy. No burning micturition. No fever, chills. Unable to obtain complete review of systems In the emergency department, patient was found to have UTI. Review of Systems Review of Systems: Yes Unobtainable due to mental status PMFSH Medical History B12 deficiency Breast cancer Fatty liver, alcoholic GERD (gastroesophageal reflux disease) History of alcohol use History of pulmonary embolism History of right breast cancer HTN (hypertension) Hx of deep venous thrombosis Hx of hypercalcemia Hx of metabolic acidosis Hx of tuberculosis Hypomagnesemia Impaired fasting glucose Irritable bowel syndrome Osteoarthritis of left knee Osteoporosis Peripheral neuropathy Pernicious anemia Thrombocytopenia TIA (transient ischemic attack) Family History Father No problems noted. Mother No problems noted. Other No family history of cancer Surgical History H/O right mastectomy History of appendectomy History of arthroplasty of left knee History of cataract surgery History of cystoscopy History of esophagogastroduodenoscopy (EGD) History of evacuation of hematoma History of knee replacement procedure of right knee History of left knee surgery History of lumpectomy of right breast History of tonsillectomy Hx of adenoidectomy Hx of colonoscopy S/P SASHA-BSO (total abdominal hysterectomy and bilateral salpingo-oophorectomy) Social History Household Members: Spouse Housing: House Are you a primary primary care physician to a significant other at home: No Do you presently have visiting nurse or other home services: No Alcohol intake: current Alcohol intake frequency: 0-2 drinks per day Alcohol type: other Patient Tobacco Use Status: Never used Tobacco e-Cigarette/Vaping Use: Never Used Second Hand Smoke Exposure: No Advance Directives: Yes Advance Directives on File: Yes Advance Directives Date on File: 12/24/21 service: No Current occupational status: retired Cognitive needs: No Hearing needs: No Vision needs: Yes Meds Allergies Allergy/AdvReac Type Severity Reaction Status Date / Time sulfamethoxazole Allergy Severe Itching Verified 04/11/23 20:57 [From Bactrim] trimethoprim [From Bactrim] Allergy Severe Itching Verified 04/11/23 20:57 cortisone [Cortisone] Allergy Mild PT STATES, Verified 04/11/23 20:57 hx TB IT COULD AFFECT CRYSTALS IN LUNG prochlorperazine Allergy Mild LEG Verified 04/11/23 20:57 [From Compazine] NUMBNESS hydrochlorothiazide Allergy Unknown RASH Verified 04/11/23 20:57 levofloxacin [Levaquin] Allergy Unknown Wakefulness, Verified 04/11/23 20:57 nausea, shaking Sulfa (Sulfonamide AdvReac Intermediate rash Verified 04/11/23 20:57 Antibiotics) codeine AdvReac Unknown NAUSEA/VOMI Verified 04/11/23 20:57 TING chocolate Allergy Unknown severe Uncoded 03/08/23 13:58 headaches/vomiting Active Medications: Current Medications Ceftriaxone Sodium 1 gm/ (Sodium Chloride) 50 mls @ 100 mls/hr IV ONCE ONE Stop: 04/11/23 19:28 Sodium Chloride (Ns) 1,000 mls @ 999 mls/hr IV .Q1H1M ONE Stop: 04/11/23 20:02 Home Medications Medication Instructions Recorded Confirmed Last Taken Type omeprazole 20 mg capsule,delayed 20 mg PO DAILY 01/08/22 04/11/23 04/11/23 History release lidocaine 5 % topical patch 2 patch topical DAILY pain 04/11/23 04/11/23 Unknown History quetiapine 25 mg tablet (Seroquel) 25 mg PO BID 04/11/23 04/11/23 04/11/23 History Physical Exam Vital Signs and Narrative: Vital Signs: Last Vital Signs Temp 97.5 F 04/11/23 17:59 Pulse 83 04/11/23 17:06 Resp 14 04/11/23 17:06 BP 157/88 H 04/11/23 17:06 Pulse Ox 98 04/11/23 17:06 O2 Del Method Room Air 04/11/23 17:06 BMI result Body Mass Index 24.2 Elderly female lying in bed in no distress Neck supple, no JVD Regular rate and rhythm, S1-S2 heard Regular breath sounds bilaterally, no wheezing or crackles appreciated Abdomen soft nontender, no guarding, no rigidity Patient is awake, alert and oriented to place and person, disoriented to time, no facial droop, no pronator drift, no nystagmus Psych: Normal mood No pedal edema Results Labs 04/11/23 17:27 04/11/23 17:29 Labs: Laboratory Results - last 24 hr 04/11/23 04/11/23 04/11/23 17:10 17:13 17:26 MCV MCH MCHC RDW Plt Count MPV Immature Gran % (Auto) Neut % (Auto) Lymph % (Auto) [place] % (Auto) Eos % (Auto) Baso % (Auto) Lymph # (Auto) [place] # (Auto) Eos # (Auto) Baso # (Auto) Abs Immat Gran (auto) Absolute Neuts (auto) Absolute Nucleated RBC Nucleated RBC % (auto) PT 12.6 Whole Blood PT 14.1 H INR 1.1 Whole Blood INR 1.2 H APTT 36.0 Anion Gap Estim Creat Clear Calc Estimated GFR POC Glucose 86 Random Glucose Lactic Acid Calcium Total Creatine Kinase Troponin I High Sens Urine Color Urine Appearance Urine pH Ur Specific [place] Urine Protein Urine Glucose (UA) Urine Ketones Urine Blood Urine Nitrite Ur Leukocyte Esterase Urine RBC Urine WBC Ur Squamous Epith Cells Urine Bacteria Hyaline Casts 04/11/23 04/11/23 04/11/23 17:26 17:26 17:27 MCV 105.6 H MCH 35.0 H MCHC 33.2 RDW 13.6 Plt Count 120 L MPV 10.4 Immature Gran % (Auto) 0.2 Neut % (Auto) 52.0 Lymph % (Auto) 29.7 [place] % (Auto) 16.0 H Eos % (Auto) 1.2 Baso % (Auto) 0.9 Lymph # (Auto) 1.3 [place] # (Auto) 0.7 Eos # (Auto) 0.1 Baso # (Auto) 0.0 Abs Immat Gran (auto) 0.01 Absolute Neuts (auto) 2.2 Absolute Nucleated RBC 0.000 Nucleated RBC % (auto) 0.0 PT Whole Blood PT INR Whole Blood INR APTT Anion Gap Estim Creat Clear Calc Estimated GFR POC Glucose Random Glucose Lactic Acid 3.3 H* Calcium Total Creatine Kinase Troponin I High Sens < 2.7 Urine Color Urine Appearance Urine pH Ur Specific [place] Urine Protein Urine Glucose (UA) Urine Ketones Urine Blood Urine Nitrite Ur Leukocyte Esterase Urine RBC Urine WBC Ur Squamous Epith Cells Urine Bacteria Hyaline Casts 04/11/23 04/11/23 17:29 17:48 MCV MCH MCHC RDW Plt Count MPV Immature Gran % (Auto) Neut % (Auto) Lymph % (Auto) [place] % (Auto) Eos % (Auto) Baso % (Auto) Lymph # (Auto) [place] # (Auto) Eos # (Auto) Baso # (Auto) Abs Immat Gran (auto) Absolute Neuts (auto) Absolute Nucleated RBC Nucleated RBC % (auto) PT Whole Blood PT INR Whole Blood INR APTT Anion Gap 18 Estim Creat Clear Calc 39.2 Estimated GFR 52 POC Glucose Random Glucose 86 Lactic Acid Calcium 9.1 Total Creatine Kinase 81 Troponin I High Sens Urine Color Yellow Urine Appearance Cloudy Urine pH 5.5 Ur Specific [place] <= 1.005 Urine Protein Negative Urine Glucose (UA) Negative Urine Ketones Negative Urine Blood Negative Urine Nitrite Negative Ur Leukocyte Esterase Large (3+) H Urine RBC 0-2 Urine WBC 21-50 H Ur Squamous Epith Cells 11-20 Urine Bacteria 4+ Hyaline Casts 0-2 Imaging Radiologist's Impressions: Impressions Head CT 04/11/23 17:03 IMPRESSION: No acute intracranial pathology. This critical result was discussed with Dr Avina at 04/11/2023, 5:25 PM. It was ascertained that the content and urgency of the report was understood at the time of direct communication. Chest X-Ray 04/11/23 17:31 IMPRESSION: No acute intrathoracic disease. Assessment and Plan (1) Altered mental status: Status: Acute (2) Urinary tract infection: Status: Acute Plan This is a 82-year-old female with pertinent history of mood disorder, history of PE on Xarelto, dementia, gastroesophageal reflux disease, recurrent UTI, history of breast cancer (2006) in remission who was brought to the emergency department for evaluation of confusion. #. Acute metabolic encephalopathy in the setting of acute UTI. Previous urine culture noted, E coli resistant to Rocephin. Initiating empiric IV antibiotics. Follow urine culture. #. Dementia. Maintain sleep-wake cycle #. Acute lactic acidosis due to poor perfusion. Trended down with fluid resuscitation. Not due to sepsis #. Neuropathy on gabapentin #. History of PE/DVT. On Xarelto #. Macrocytosis due to B12 deficiency. Med rec pending DVT prophylaxis: Xarelto Full code Cardiac diet Admit as inpatient and will require two night minimum hospital stay for IV antibiotics Time Spent With Patient Time: Total time managing care of this patient today ____ minutes. Quality Stroke Does the patient have a stroke diagnosis?: No VTE Prior VTE?: No VTE Risk Level:: Medical - moderate - high VTE Device Contraindication: Treatment Not Indicated VTE Drug Contraindication: N/A - Med Ordered
[2023-04-11 19:11] LABS: Stroke Lab Use COMPLETE
[2023-04-11] MEDS: iohexoL 350 MG/ML 100 ML INFUS..BTL IV (19:25)
[2023-04-11 19:35] LABS: Reflex Lactate? Lactic Acid Added
[2023-04-11] MEDS: cefTRIAXone sodium 1 GM in 0.9 % Sodium Chloride 50 ML IV (20:07)
--- NOTE | 2023-04-11 20:07 | PHA.MEDREC ---
MED REC COMPLETE, Spoke to patient and compared with pharmacy fill history Pharmacy Consult ? Medication Reconciliation Pharmacy has completed the medication reconciliation.
[2023-04-11] MEDS: 0.9 % Sodium Chloride 1,000 ML 999 ML IV (20:11)
[2023-04-11 20:17] LABS: Lactic Acid 2.2 mmol/L (0.5-2.0)
--- NOTE | 2023-04-11 20:41 | PC.NURSE ---
Assumed care of pt. Pt lying on stretcher, mildly tremulous, appears anxious. Spoke with spouse, patient and granddaughter (on later arrival) regarding plan of care. Ordered medications administered without complications. Due to 2 small existing wounds on patient sacral area, recommended and implemented Purewik for patient comfort. Additional labs drawn and results reported to MD Montoya. SHALINI NAVARRO.
--- NOTE | 2023-04-11 21:07 | PC.NURSE ---
Noted to MD slow flow if IV medications due to small bore IV.
[2023-04-11 21:58] LABS: Reflex Lactate? Lactic Acid Added
--- NOTE | 2023-04-11 22:05 | PC.NURSE ---
Moved IVF and abx to pump du to long running rate.
[2023-04-11 22:43] VITALS: BP 147/67; PULSE 91; RESP 17; TEMP 36.4; O2SAT 99
[2023-04-11 22:43] LABS: ~Lactic Acid-LAB USE ONLY 1.2 mmol/L (0.5-2.0)
[2023-04-11 23:32] VITALS: BP 148/69; PULSE 89; RESP 16; TEMP 36.7; O2SAT 98
--- NOTE | 2023-04-11 23:33 | MHC.EDTECH ---
THIS PCT ASSUMED CARE OF PT AT 2300 ,VITALS SIGN TAKEN ,PT WATCHING TELEVISION ,CALL AG WITHIN REACH ,WARM BLANKET GIVEN .
[2023-04-12] VITALS (7 sets, daily range): BP systolic 137–176; BP diastolic 66–90; PULSE 86–107; RESP 15–18; TEMP 35.9–37; O2SAT 95–99; BMI 22.7
--- NOTE | 2023-04-12 02:54 | PC.NURSE ---
Pt up to bedside commode with 2 person assistance. Call mayes provided.
--- NOTE | 2023-04-12 03:05 | MHC.EDTECH ---
PATIENT WAS ASSISTED TO BEDSIDE COMMODE ,PATIENT HAD A MEDIUM BOWEL MOVEMENT ,BALTAZAR CARE GIVEN ,GOWN CHANGE ,FRESH WARM BLANKET GIVEN ,AND NEW PURE WICK IN PLACE ,VITALS SIGN TAKEN ,PT WATCHING TELEVISION CALL AG WITHIN REACH .
[2023-04-12 05:21] LABS: MANUAL DIFF FLAG NO
[2023-04-12 05:25] LABS: Eosinophils Percent Auto 0.7 % (0-4); Hematocrit 33.3 % (37.0-47.0); Hemoglobin 11.1 g/dl (12.0-16.0); Imm Gran Abs Auto 0.01 X10*3/uL (0.00-0.03); Imm Gran Pct Auto 0.2 % (0.0-0.4); Lymphocytes Absolute Auto 0.7 X10*3/uL (1.2-4.9); Lymphocytes Percent Auto 15.7 % (20-40); Mean Corpuscular HGB Conc 33.3 g/dl (31.0-35.0); Mean Corpuscular Hemoglobin 34.8 pg (27.0-33.0); Mean Corpuscular Volume 104.4 fL (80.0-98.0); Mean Platelet Volume 10.4 fL (9.4-12.3); Monocytes Absolute Auto 0.7 X10*3/uL (0.1-1.2); Monocytes Percent Auto 16.9 % (2-11); Neutrophils Absolute Auto 2.8 x10*3/uL (2.0-8.3); Neutrophils Percent Auto 65.5 % (45-73); Platelet Count 102 X10*3/uL (160-400); Red Blood Count 3.19 X10*6/uL (4.20-5.50); Red Cell Distribution Width 13.8 % (11.0-16.0); White Blood Count 4.2 X10*3/uL (4.8-10.8)
[2023-04-12 05:38] LABS: Anion Gap 14 (12-20); Blood Urea Nitrogen 10 mg/dL (9-16); Calcium 8.5 mg/dL (8.4-10.2); Carbon Dioxide 22 mmol/L (22-29); Chloride 106 mmol/L (96-108); Creatinine Clr Calc Pharmacy 45.8; Estimated Glomerular Filt Rate > 60; Glucose Random 89 mg/dL (60-115); Sodium 138 mmol/L (135-145)
--- NOTE | 2023-04-12 08:00 | PC.NURSE ---
pt A&O x4. pt lung sounds are clear bilaterally. pt heart sounds regular. Hyperactive bowel sounds in all 4 quads. Abdomen soft and non-tender. Perwick in place, patent and draining. No edema present. Brown discoloration bilaterally on lower legs. Pedal pulses present on palpitation. Pt reports no pain at this time. Pt ate only eggs on breakfast tray. Pt aware of plan of care.
[2023-04-12] MEDS: 0.9 % Sodium Chloride Flush 3 ML SYRINGE IVFLUSH ×2 (08:09→17:50)
--- NOTE | 2023-04-12 09:26 | MHC.CM.PN ---
Met with patient in regards to discharge planning. Patient lives with her , ambulates independently and had no services prior to coming to the hospital. Patient is denying the need for services at d/c. PCP verified as Dr Burnett. Copy of HCP verified to be on file. Patient received 5 Covid vaccines. IMM explained and signed. Patient's will transport her home when medically stable. Continue to monitor for d/c needs.
--- NOTE | 2023-04-12 09:46 | PC.NURSE ---
Dr. Sawyer at bedside. Pt aware of plan of care.
--- NOTE | 2023-04-12 09:52 | MHC.EDTECH ---
Pt out of bed to recliner, 2 assisted. New purewick placed, new linen and bed linens changed. Pt at bedside.
[2023-04-12] MEDS: Acetaminophen 325 MG TABLET 650 MG PO (11:55)
--- NOTE | 2023-04-12 14:42 | P.PNIM_ITS ---
Subjective Subjective Date of Service: 04/12/23 Interval History: More alert this a.m. per . No dysuric symptoms Review of Systems Denies chest pain Denies shortness of breath Denies nausea vomiting diarrhea Denies fever chills Physical Exam Vital Signs: Vital Signs: Last Vital Signs Temp 98.1 F 04/12/23 13:35 Pulse 94 04/12/23 13:35 Resp 16 04/12/23 13:35 BP 137/66 04/12/23 13:35 Pulse Ox 95 04/12/23 13:35 O2 Del Method Room Air 04/12/23 13:35 BMI result Body Mass Index 24.2 Const: Other: No acute distress Resp: Other: Clear to auscultation bilaterally no rales rhonchi or wheezes Cardio: Other: No S4; positive S1-S2; no S3 murmurs rubs or gallops GI: Other: Soft nontender nondistended normoactive bowel sounds Extrem: Other: No edema bilateral Objective Data Active Medications Acetaminophen (Acetaminophen 325 Mg Tablet) 650 mg PO Q6H PRN PRN Reason: Pain, Mild (Pain Scale 1-3) Last Admin: 04/12/23 11:55 Dose: 650 mg Documented By: ASIA Meropenem 1 gm/ Sodium (Chloride) 100 mls @ 200 mls/hr IV Q12H [facility] Last Infusion: 04/12/23 11:00 Dose: 0 mls/hr Documented By: ASIA Melatonin (Melatonin 3 Mg Tablet) 6 mg PO BEDTIME PRN PRN Reason: Insomnia Ondansetron HCl (Ondansetron Hcl 4 Mg/2 Ml Vial) 4 mg IVPUSH Q8H PRN PRN Reason: Nausea and Vomiting Pharmacy Consult (Consult Rx Perform Med Rec) 1 each MISCELLANE ONCE PRN PRN Reason: Consult order Sodium Chloride (0.9 % Sodium Chloride Flush 3 Ml Syringe) 3 ml IVFLUSH QSHIFT [facility] Last Admin: 04/12/23 08:09 Dose: 3 ml Documented By: ASIA Labs 04/12/23 05:07 04/12/23 05:07 Labs: Laboratory Results - last 24 hr 04/11/23 04/11/23 04/11/23 17:10 17:13 17:26 MCV MCH MCHC RDW Plt Count MPV Immature Gran % (Auto) Neut % (Auto) Lymph % (Auto) [place] % (Auto) Eos % (Auto) Baso % (Auto) Lymph # (Auto) [place] # (Auto) Eos # (Auto) Baso # (Auto) Abs Immat Gran (auto) Absolute Neuts (auto) Absolute Nucleated RBC Nucleated RBC % (auto) PT 12.6 Whole Blood PT 14.1 H INR 1.1 Whole Blood INR 1.2 H APTT 36.0 Anion Gap Estim Creat Clear Calc Estimated GFR POC Glucose 86 Random Glucose Lactic Acid Lactic Acid F/U @ 2Hr Calcium Total Creatine Kinase Troponin I High Sens Urine Color Urine Appearance Urine pH Ur Specific [place] Urine Protein Urine Glucose (UA) Urine Ketones Urine Blood Urine Nitrite Ur Leukocyte Esterase Urine RBC Urine WBC Ur Squamous Epith Cells Urine Bacteria Hyaline Casts 04/11/23 04/11/23 04/11/23 17:26 17:26 17:27 MCV 105.6 H MCH 35.0 H MCHC 33.2 RDW 13.6 Plt Count 120 L MPV 10.4 Immature Gran % (Auto) 0.2 Neut % (Auto) 52.0 Lymph % (Auto) 29.7 [place] % (Auto) 16.0 H Eos % (Auto) 1.2 Baso % (Auto) 0.9 Lymph # (Auto) 1.3 [place] # (Auto) 0.7 Eos # (Auto) 0.1 Baso # (Auto) 0.0 Abs Immat Gran (auto) 0.01 Absolute Neuts (auto) 2.2 Absolute Nucleated RBC 0.000 Nucleated RBC % (auto) 0.0 PT Whole Blood PT INR Whole Blood INR APTT Anion Gap Estim Creat Clear Calc Estimated GFR POC Glucose Random Glucose Lactic Acid 3.3 H* Lactic Acid F/U @ 2Hr Calcium Total Creatine Kinase Troponin I High Sens < 2.7 Urine Color Urine Appearance Urine pH Ur Specific [place] Urine Protein Urine Glucose (UA) Urine Ketones Urine Blood Urine Nitrite Ur Leukocyte Esterase Urine RBC Urine WBC Ur Squamous Epith Cells Urine Bacteria Hyaline Casts 04/11/23 04/11/23 04/11/23 17:29 17:48 19:51 MCV MCH MCHC RDW Plt Count MPV Immature Gran % (Auto) Neut % (Auto) Lymph % (Auto) [place] % (Auto) Eos % (Auto) Baso % (Auto) Lymph # (Auto) [place] # (Auto) Eos # (Auto) Baso # (Auto) Abs Immat Gran (auto) Absolute Neuts (auto) Absolute Nucleated RBC Nucleated RBC % (auto) PT Whole Blood PT INR Whole Blood INR APTT Anion Gap 18 Estim Creat Clear Calc 39.2 Estimated GFR 52 POC Glucose Random Glucose 86 Lactic Acid 2.2 H* Lactic Acid F/U @ 2Hr Calcium 9.1 Total Creatine Kinase 81 Troponin I High Sens Urine Color Yellow Urine Appearance Cloudy Urine pH 5.5 Ur Specific [place] <= 1.005 Urine Protein Negative Urine Glucose (UA) Negative Urine Ketones Negative Urine Blood Negative Urine Nitrite Negative Ur Leukocyte Esterase Large (3+) H Urine RBC 0-2 Urine WBC 21-50 H Ur Squamous Epith Cells 11-20 Urine Bacteria 4+ Hyaline Casts 0-2 04/11/23 04/12/23 04/12/23 22:23 05:07 05:07 MCV 104.4 H MCH 34.8 H MCHC 33.3 RDW 13.8 Plt Count 102 L MPV 10.4 Immature Gran % (Auto) 0.2 Neut % (Auto) 65.5 Lymph % (Auto) 15.7 L [place] % (Auto) 16.9 H Eos % (Auto) 0.7 Baso % (Auto) 1.0 Lymph # (Auto) 0.7 L [place] # (Auto) 0.7 Eos # (Auto) 0.0 Baso # (Auto) 0.0 Abs Immat Gran (auto) 0.01 Absolute Neuts (auto) 2.8 Absolute Nucleated RBC 0.000 Nucleated RBC % (auto) 0.0 PT Whole Blood PT INR Whole Blood INR APTT Anion Gap 14 Estim Creat Clear Calc 45.8 Estimated GFR > 60 POC Glucose Random Glucose 89 Lactic Acid Lactic Acid F/U @ 2Hr 1.2 Calcium 8.5 D Total Creatine Kinase Troponin I High Sens Urine Color Urine Appearance Urine pH Ur Specific [place] Urine Protein Urine Glucose (UA) Urine Ketones Urine Blood Urine Nitrite Ur Leukocyte Esterase Urine RBC Urine WBC Ur Squamous Epith Cells Urine Bacteria Hyaline Casts Microbiology Microbiology Results: Microbiology 04/11/23 18:18 Urine Culture - Preliminary Urine clean catch - Urine epstein top Gram negative betsy Assessment and Plan (1) Altered mental status: Status: Acute (2) Urinary tract infection: Status: Acute (3) Peripheral neuropathy: Status: Acute (4) History of pulmonary embolism: Status: Acute Plan This is a 82-year-old female with pertinent history of mood disorder, history of PE on Xarelto, dementia, gastroesophageal reflux disease, recurrent UTI, history of breast cancer (2006) in remission who was brought to the emergency department for evaluation of confusion; found to have active urinary sediment 1.Acute metabolic encephalopathy in backdrop of acute UTI -continue meropenem pending ID and sensitivities -await urine culture 2.Neuropathy -continue gabapentin 3.History of PE/DVT -Xarelto as ordered #. Macrocytosis due to B12 deficiency. Xarelto Full code Requires ongoing hospitalization for IV antibiotics to treat acute UTI Time Spent With Patient Time: Total time managing care of this patient today ____ minutes. Quality Stroke Does the patient have a stroke diagnosis?: No VTE Prior VTE?: No VTE Risk Level:: Medical - moderate - high VTE Device Contraindication: Treatment Not Indicated VTE Drug Contraindication: N/A - Med Ordered
--- NOTE | 2023-04-12 14:57 | PC.NURSE ---
Garcia in patients room. pt aware of plan of care.
--- NOTE | 2023-04-12 15:55 | W.PM.IDCN ---
History of Present Illness Data of Consult Service Date: 04/12/23 Requesting physician: Aleksander Sawyer Primary Care Provider: MD SHIRA Hylton Reason for consult: encephalopathy,gram negative rods in urine She presents with confusion and lethargy. She has baseline dementia. She has urine more than 100,000 gram negative. She has had E coli 03/2021 ESBL in urine sensitive to Ertapenem. Review of Systems Review of Systems: Yes Unobtainable due to mental condition PMFSH Past Medical History Medical History B12 deficiency Breast cancer Fatty liver, alcoholic GERD (gastroesophageal reflux disease) History of alcohol use History of pulmonary embolism History of right breast cancer HTN (hypertension) Hx of deep venous thrombosis Hx of hypercalcemia Hx of metabolic acidosis Hx of tuberculosis Hypomagnesemia Impaired fasting glucose Irritable bowel syndrome Osteoarthritis of left knee Osteoporosis Peripheral neuropathy Pernicious anemia Thrombocytopenia TIA (transient ischemic attack) Family History Family History Father No problems noted. Mother No problems noted. Other No family history of cancer Family history: reviewed and not pertinent Surgical History Surgical History H/O right mastectomy History of appendectomy History of arthroplasty of left knee History of cataract surgery History of cystoscopy History of esophagogastroduodenoscopy (EGD) History of evacuation of hematoma History of knee replacement procedure of right knee History of left knee surgery History of lumpectomy of right breast History of tonsillectomy Hx of adenoidectomy Hx of colonoscopy S/P SASHA-BSO (total abdominal hysterectomy and bilateral salpingo-oophorectomy) Social History Social History Household Members: Spouse Housing: House Are you a primary district manager primary care sales to a significant other at home: No Do you presently have visiting nurse or other home services: No Alcohol intake: current Alcohol intake frequency: 0-2 drinks per day Alcohol type: other Patient Tobacco Use Status: Never used Tobacco e-Cigarette/Vaping Use: Never Used Second Hand Smoke Exposure: No Advance Directives: Yes Advance Directives on File: Yes Advance Directives Date on File: 12/24/21 service: No Current occupational status: retired Cognitive needs: No Hearing needs: No Vision needs: Yes Meds Allergies Allergy/AdvReac Type Severity Reaction Status Date / Time sulfamethoxazole Allergy Severe Itching Verified 04/11/23 20:57 [From Bactrim] trimethoprim [From Bactrim] Allergy Severe Itching Verified 04/11/23 20:57 cortisone [Cortisone] Allergy Mild PT STATES, Verified 04/11/23 20:57 hx TB IT COULD AFFECT CRYSTALS IN LUNG prochlorperazine Allergy Mild LEG Verified 04/11/23 20:57 [From Compazine] NUMBNESS hydrochlorothiazide Allergy Unknown RASH Verified 04/11/23 20:57 levofloxacin [Levaquin] Allergy Unknown Wakefulness, Verified 04/11/23 20:57 nausea, shaking Sulfa (Sulfonamide AdvReac Intermediate rash Verified 04/11/23 20:57 Antibiotics) codeine AdvReac Unknown NAUSEA/VOMI Verified 04/11/23 20:57 TING chocolate Allergy Unknown severe Uncoded 03/08/23 13:58 headaches/vomiting Active Medications: Current Medications Acetaminophen (Acetaminophen 325 Mg Tablet) 650 mg PO Q6H PRN PRN Reason: Pain, Mild (Pain Scale 1-3) Last Admin: 04/12/23 11:55 Dose: 650 mg Meropenem 1 gm/ Sodium (Chloride) 100 mls @ 200 mls/hr IV Q12H [facility] Last Infusion: 04/12/23 11:00 Dose: Infused Melatonin (Melatonin 3 Mg Tablet) 6 mg PO BEDTIME PRN PRN Reason: Insomnia Ondansetron HCl (Ondansetron Hcl 4 Mg/2 Ml Vial) 4 mg IVPUSH Q8H PRN PRN Reason: Nausea and Vomiting Pharmacy Consult (Consult Rx Perform Med Rec) 1 each MISCELLANE ONCE PRN PRN Reason: Consult order Sodium Chloride (0.9 % Sodium Chloride Flush 3 Ml Syringe) 3 ml IVFLUSH QSHIFT [facility] Last Admin: 04/12/23 08:09 Dose: 3 ml Home Medications Medication Instructions Recorded Confirmed Last Taken Type omeprazole 20 mg capsule,delayed 20 mg PO DAILY 01/08/22 04/11/23 04/11/23 History release lidocaine 5 % topical patch 2 patch topical DAILY pain 04/11/23 04/11/23 Unknown History quetiapine 25 mg tablet (Seroquel) 25 mg PO BID 04/11/23 04/11/23 04/11/23 History Physical Exam Vital Signs: Vital Signs: Last Vital Signs Temp 98.1 F 04/12/23 13:35 Pulse 94 04/12/23 13:35 Resp 16 04/12/23 13:35 BP 137/66 04/12/23 13:35 Pulse Ox 95 04/12/23 13:35 O2 Del Method Room Air 04/12/23 13:35 BMI result Body Mass Index 24.2 Const: General: cooperative HEENT: Head: Yes normal to inspection Face and sinus: Yes normal facial exam Mouth: Normal oral and palatal mucosa present Teeth and gingiva: dentition normal Eyes: General: appearance normal, both eyes and all related structures Pupils: Equal, round and reactive pupils present Resp: Effort & Inspection: normal respiratory effort Cardio: Rate: regular rate Rhythm: regular rhythm GI: Palpation (GI): Soft to palpation and nontender : General: Yes no CVA tenderness Back/Spine/Pelvis: Back: no CVA tenderness Skin: General skin exam: no rashes or lesions noted Neuro: General: moves all extremities Cranial nerves: Yes Equal, round and reactive pupils present Extrem: General: Yes normal to inspection Psych: Other: confused Results Labs 04/12/23 05:07 04/12/23 05:07 Labs: Short CBC 04/11/23 04/12/23 Range/Units 17:27 05:07 WBC 4.2 L 4.2 L (4.8-10.8) X10*3/uL Hgb 12.5 11.1 L (12.0-16.0) g/dl Hct 37.7 33.3 L (37.0-47.0) % Plt Count 120 L 102 L (160-400) X10*3/uL BMP 04/11/23 04/12/23 17:29 05:07 Sodium 140 138 Potassium 4.6 4.0 Chloride 102 106 Carbon Dioxide 25 22 BUN 12 10 Creatinine 1.03 0.88 Calcium 9.1 8.5 D Cardiac Enzymes 04/11/23 Range/Units 17:29 Total Creatine Kinase 81 (26-140) U/L Urine 04/11/23 Range/Units 17:48 Urine Color Yellow Urine Appearance Cloudy Urine pH 5.5 (5.0-9.0) Ur Specific [place] <= 1.005 (1.005-1.025) Urine Protein Negative (Neg-Trace) mg/dL Urine Glucose (UA) Negative (Negative) mg/dL Microbiology Microbiology Results: Microbiology 04/11/23 18:18 Urine clean catch - Urine epstein top Urine Culture - Preliminary Gram negative betsy Assessment and Plan (1) Urinary tract infection: Status: Acute (2) Altered mental status: Status: Acute Possible altered mental status is due to gram negative sepsis with ESBL E coli. She has concerns over drug resistance. Plan Continue IV Merem until final culture back and if only sensitive to Ertapenem then 10 day course. Follow Urology Time Spent With Patient Time: Total time managing care of this patient today ____ minutes.
--- NOTE | 2023-04-12 16:40 | MHC.EDTECH ---
pt was requesting laurie care, new purewick was placed, blankets were given, pt is comfortable
[2023-04-13] VITALS (7 sets, daily range): BP systolic 126–185; BP diastolic 74–100; PULSE 82–101; RESP 17–20; TEMP 35.6–36.8; O2SAT 97–100
[2023-04-13] MEDS: 0.9 % Sodium Chloride Flush 3 ML SYRINGE IVFLUSH ×2 (09:22→15:58)
--- NOTE | 2023-04-13 13:52 | HO.PM.IMPN ---
Subjective Subjective Date of Service: 04/13/23 Interval History: Back to baseline today per . No dysuric symptoms Review of Systems Denies chest pain Denies shortness of breath Denies nausea vomiting diarrhea Denies fever chills Physical Exam Vital Signs: Vital Signs: Last Vital Signs Temp 97.1 F 04/13/23 11:11 Pulse 100 04/13/23 11:11 Resp 20 04/13/23 11:11 BP 146/80 H 04/13/23 11:11 Pulse Ox 98 04/13/23 11:11 O2 Del Method Room Air 04/13/23 11:11 BMI result Body Mass Index 22.7 Const: Other: No acute distress Resp: Other: Clear to auscultation bilaterally no rales rhonchi or wheezes Cardio: Other: No S4; positive S1-S2; no S3 murmurs rubs or gallops GI: Other: Soft nontender nondistended normoactive bowel sounds Extrem: Other: No edema bilateral Objective Data Active Medications Acetaminophen (Acetaminophen 325 Mg Tablet) 650 mg PO Q6H PRN PRN Reason: Pain, Mild (Pain Scale 1-3) Last Admin: 04/12/23 11:55 Dose: 650 mg Documented By: ASIA Meropenem 1 gm/ Sodium (Chloride) 100 mls @ 200 mls/hr IV Q12H [facility] Last Infusion: 04/13/23 09:59 Dose: 0 mls/hr Documented By: ROJELIO Melatonin (Melatonin 3 Mg Tablet) 6 mg PO BEDTIME PRN PRN Reason: Insomnia Ondansetron HCl (Ondansetron Hcl 4 Mg/2 Ml Vial) 4 mg IVPUSH Q8H PRN PRN Reason: Nausea and Vomiting Pharmacy Consult (Consult Rx Perform Med Rec) 1 each MISCELLANE ONCE PRN PRN Reason: Consult order Sodium Chloride (0.9 % Sodium Chloride Flush 3 Ml Syringe) 3 ml IVFLUSH QSHIFT [facility] Last Admin: 04/13/23 09:22 Dose: 3 ml Documented By: ROJELIO Labs 04/12/23 05:07 04/12/23 05:07 Microbiology Microbiology Results: Microbiology 04/11/23 18:18 Urine Culture - Preliminary Urine clean catch - Urine epstein top Escherichia coli 04/11/23 18:14 Blood Culture - Preliminary Blood - Venous No growth after 24 hours. 04/11/23 17:26 Blood Culture - Preliminary Blood - Venous No growth after 24 hours. Assessment and Plan (1) Acute metabolic encephalopathy: Status: Acute (2) Urinary tract infection: Status: Acute (3) Peripheral neuropathy: Status: Acute Plan This is a 82-year-old female with pertinent history of mood disorder, history of PE on Xarelto, dementia, gastroesophageal reflux disease, recurrent UTI, history of breast cancer (2006) in remission who was brought to the emergency department for evaluation of confusion; found to have active urinary sediment 1.Acute metabolic encephalopathy in backdrop of acute UTI -continue meropenem pending ID and sensitivities -await urine culture.. If sensitive only to meropenem will need 10 days of IV therapy 2.Neuropathy -continue gabapentin 3.History of PE/DVT -Xarelto as ordered Xarelto Full code Requires ongoing hospitalization for IV antibiotics to treat acute UTI Time Spent With Patient Time: Total time managing care of this patient today ____ minutes. Quality Stroke Does the patient have a stroke diagnosis?: No VTE Prior VTE?: No VTE Risk Level:: Medical - moderate - high VTE Device Contraindication: Treatment Not Indicated VTE Drug Contraindication: N/A - Med Ordered
--- NOTE | 2023-04-13 15:01 | MHC.CM.PN ---
EMR REVIEWED AND PER MD ROUNDS, PT IS NOT MEDICALLY CLEARED FOR DC (AWAITING FINAL SENSITIVITIES, IV RX FOR UTI.) CM WILL CONTINUE TO FOLLOW FOR THE DC PLAN/NEEDS.
[2023-04-13] MEDS: Gabapentin 300 MG CAPSULE PO (19:06)
[2023-04-13] MEDS: Rivaroxaban 20 MG TABLET PO (19:06)
[2023-04-13] MEDS: QUEtiapine Fumarate 25 MG TABLET PO (19:06)
[2023-04-13] MEDS: Magnesium Oxide 400 MG TABLET PO (21:34)
[2023-04-14 03:37] VITALS: BP 166/84; PULSE 88; TEMP 36.8; O2SAT 98
[2023-04-14 07:08] VITALS: BP 148/84; PULSE 85; RESP 18; TEMP 36.3; O2SAT 98
[2023-04-14 07:16] LABS: Glucose, Whole Blood 95 mg/dL (60-115)
[2023-04-14] MEDS: Magnesium Oxide 400 MG TABLET PO ×2 (07:57→21:21)
[2023-04-14] MEDS: Folic Acid 1 MG TABLET PO (07:57)
[2023-04-14] MEDS: Metoprolol Tartrate 12.5 MG HALFTAB PO ×2 (07:58→21:21)
[2023-04-14] MEDS: Acetaminophen 325 MG TABLET 650 MG PO (07:58)
[2023-04-14] MEDS: Gabapentin 300 MG CAPSULE PO (07:58)
[2023-04-14] MEDS: Lidocaine 4 % Patch ADH..PATCH 2 PATCH TRANSDERMA (07:59)
[2023-04-14] MEDS: QUEtiapine Fumarate 25 MG TABLET PO ×2 (08:00→21:21)
[2023-04-14] MEDS: 0.9 % Sodium Chloride Flush 3 ML SYRINGE IVFLUSH (08:00)
[2023-04-14 11:04] VITALS: BP 112/54; PULSE 87; RESP 20; TEMP 36.2; O2SAT 98
--- NOTE | 2023-04-14 14:49 | P.PNIM_ITS ---
Subjective Subjective Date of Service: 04/14/23 Interval History: Seroquel with good effect. No acute issues overnight Review of Systems Denies chest pain Denies shortness of breath Denies nausea vomiting diarrhea Denies fever chills Physical Exam Vital Signs: Vital Signs: Last Vital Signs Temp 97.1 F 04/14/23 11:04 Pulse 87 04/14/23 11:04 Resp 20 04/14/23 11:04 BP 112/54 L 04/14/23 11:04 Pulse Ox 98 04/14/23 11:04 O2 Del Method Room Air 04/14/23 11:04 O2 Flow Rate 98 04/13/23 23:38 BMI result Body Mass Index 22.7 Const: Other: No acute distress Resp: Other: Clear to auscultation bilaterally no rales rhonchi or wheezes Cardio: Other: No S4; positive S1-S2; no S3 murmurs rubs or gallops GI: Other: Soft nontender nondistended normoactive bowel sounds Extrem: Other: No edema bilateral Objective Data Active Medications Acetaminophen (Acetaminophen 325 Mg Tablet) 650 mg PO Q6H PRN PRN Reason: Pain, Mild (Pain Scale 1-3) Last Admin: 04/14/23 07:58 Dose: 650 mg Documented By: JUANA Folic Acid (Folic Acid 1 Mg Tablet) 1 mg PO DAILY [facility] Last Admin: 04/14/23 07:57 Dose: 1 mg Documented By: JUANA Gabapentin (Gabapentin 300 Mg Capsule) 300 mg PO DAILY [facility] Last Admin: 04/14/23 07:58 Dose: 300 mg Documented By: JUANA Meropenem 1 gm/ Sodium (Chloride) 100 mls @ 200 mls/hr IV Q12H [facility] Last Infusion: 04/14/23 10:00 Dose: 0 mls/hr Documented By: JUANA Lidocaine (Lidocaine 4 % Patch Adh..Patch) 2 patch TRANSDERMA DAILY [facility] Last Admin: 04/14/23 07:59 Dose: 2 patch Documented By: JUANA Magnesium Oxide (Magnesium Oxide 400 Mg Tablet) 400 mg PO BID [facility] Last Admin: 04/14/23 07:57 Dose: 400 mg Documented By: JUANA Melatonin (Melatonin 3 Mg Tablet) 6 mg PO BEDTIME PRN PRN Reason: Insomnia Metoprolol Tartrate (Metoprolol Tartrate 12.5 Mg Halftab) 12.5 mg PO BID [facility]; Protocol Last Admin: 04/14/23 07:58 Dose: 12.5 mg Documented By: JUANA Omeprazole (Omeprazole 20 Mg Capsule.) 20 mg PO DAILY@0630 [facility] Last Admin: 04/14/23 06:15 Dose: Not Given Documented By: FRANCISCO Non-Admin Reason: Patient Refused Ondansetron HCl (Ondansetron Hcl 4 Mg/2 Ml Vial) 4 mg IVPUSH Q8H PRN PRN Reason: Nausea and Vomiting Pharmacy Consult (Consult Rx Perform Med Rec) 1 each MISCELLANE ONCE PRN PRN Reason: Consult order Quetiapine Fumarate (Quetiapine Fumarate 25 Mg Tablet) 25 mg PO BID [facility] Last Admin: 04/14/23 08:00 Dose: 25 mg Documented By: JUANA Rivaroxaban (Rivaroxaban 20 Mg Tablet) 20 mg PO DAILY@1700 [facility] Last Admin: 04/13/23 19:06 Dose: 20 mg Documented By: ROJELIO Sodium Chloride (0.9 % Sodium Chloride Flush 3 Ml Syringe) 3 ml IVFLUSH QSHIFT [facility] Last Admin: 04/14/23 08:00 Dose: 3 ml Documented By: JUANA Labs 04/12/23 05:07 04/12/23 05:07 Labs: Laboratory Results - last 24 hr 04/14/23 07:13 POC Glucose 95 Microbiology Microbiology Results: Microbiology 04/11/23 18:18 Urine Culture - Final Urine clean catch - Urine epstein top Escherichia coli 04/11/23 18:14 Blood Culture - Preliminary Blood - Venous No growth after 48 hours. 04/11/23 17:26 Blood Culture - Preliminary Blood - Venous No growth after 48 hours. Assessment and Plan (1) Acute metabolic encephalopathy: Status: Acute (2) Urinary tract infection: Status: Acute (3) Peripheral neuropathy: Status: Acute Plan This is a 82-year-old female with pertinent history of mood disorder, history of PE on Xarelto, dementia, gastroesophageal reflux disease, recurrent UTI, history of breast cancer (2006) in remission who was brought to the emergency department for evaluation of confusion; found to have active urinary sediment 1.Acute metabolic encephalopathy in backdrop of acute UTI -continue meropenem -E coli sensitive to only meropenem -midline in a.m.; 7 days of meropenem as outpatient 2.Neuropathy -continue gabapentin 3.History of PE/DVT -Xarelto as ordered Xarelto Full code Requires ongoing hospitalization for IV antibiotics to treat acute UTI Time Spent With Patient Time: Total time managing care of this patient today ____ minutes. Quality Stroke Does the patient have a stroke diagnosis?: No VTE Prior VTE?: No VTE Risk Level:: Medical - moderate - high VTE Device Contraindication: Treatment Not Indicated VTE Drug Contraindication: N/A - Med Ordered
[2023-04-14 16:00] VITALS: BP 137/69; PULSE 76; RESP 14; TEMP 37.1; O2SAT 94
[2023-04-14] MEDS: Rivaroxaban 20 MG TABLET PO (16:39)
[2023-04-14 19:05] VITALS: BP 136/74; PULSE 93; RESP 14; TEMP 37; O2SAT 98
[2023-04-14 23:10] VITALS: BP 138/75; PULSE 84; RESP 18; TEMP 37.1; O2SAT 96
[2023-04-15 04:00] VITALS: BP 136/82; PULSE 82; RESP 20; TEMP 36.8; O2SAT 97
[2023-04-15] MEDS: Omeprazole 20 MG CAPSULE.DR PO (05:35)
[2023-04-15 07:09] VITALS: BP 144/85; PULSE 79; RESP 20; TEMP 36.8; O2SAT 97
[2023-04-15 07:21] LABS: Glucose, Whole Blood 92 mg/dL (60-115)
--- NOTE | 2023-04-15 10:18 | HO.MIDLINE ---
Midline Insertion MIDLINE INSERTION Diagnosis: UTI Indication: 7 day outpatient antibiotics Pertinent Labs: reviewed Technique: Using sterile technique including cap and mask, glove and drape, the right arm was prepped and draped in the usual sterile fashion of full barrier technique with CHG. Using ultrasound guidance, the right basilic vein access was obtained in a single attempt by this RN. A 20 guage 8cm long NON-PASV midline was positioned. The procedure was performed in S272. Ultrasound was used to document vein patency and for needle entry. A formal ultrasound picture was recorded. Vascular Brake Lining Curer has released the line for use and it is currently dressed with a StatLock, Tegaderm, and CHG disc. Verification has been performed for blood return and line patency. Arm Circumference: 29 cm Equipment: BARD PowerGlide ST Midline Catheter Type: 20 guage 8 cm NON-PASV Lot #: [id number]
[2023-04-15] MEDS: Metoprolol Tartrate 12.5 MG HALFTAB PO (10:46)
[2023-04-15] MEDS: Magnesium Oxide 400 MG TABLET PO (10:47)
[2023-04-15] MEDS: Gabapentin 300 MG CAPSULE PO (10:47)
[2023-04-15] MEDS: Folic Acid 1 MG TABLET PO (10:47)
[2023-04-15] MEDS: QUEtiapine Fumarate 25 MG TABLET PO (10:47)
[2023-04-15] MEDS: 0.9 % Sodium Chloride Flush 3 ML SYRINGE IVFLUSH (10:48)
[2023-04-15 11:15] LABS: Glucose, Whole Blood 113 mg/dL (60-115)
[2023-04-15] MEDS: Cyanocobalamin (Vitamin B-12) 1,000 MCG/ML VIAL 1000 MCG IM (11:58)
[2023-04-15 12:00] VITALS: BP 122/60; PULSE 85; RESP 20; TEMP 36.6; O2SAT 96
[2023-04-15] MEDS: Ertapenem Sodium 1 GM in 0.9 % Sodium Chloride 50 ML IV (12:36)
--- NOTE | 2023-04-15 13:23 | P.DS_ITS ---
DS: Providers Provider Date of Service: 04/15/23 Date of admission: 04/11/23 19:04 Date of discharge: 04/15/23 Primary care physician: Vinicius Burnett MD Consults: 04/12/23 08:00 Consult to Infectious Diseases Routine Consulting Provider: [facility] [place] Infectious Disease Reason for consultation: meropenem DS: Diagnosis Discharge Diagnosis (1) Acute metabolic encephalopathy: Status: Acute (2) Urinary tract infection: Status: Acute (3) Peripheral neuropathy: Status: Acute DS: Summary Hospital Course Hospital Course: 82-year-old female with pertinent history of mood disorder, history of PE on Xarelto, dementia, gastroesophageal reflux disease, recurrent UTI, history of breast cancer (2006) in remission who was brought to the emergency department for evaluation of confusion.? As per the at bedside, he was unable to wake up his from her afternoon nap.? Patient is a poor historian and although awake at the time of my evaluation, is only oriented to place and person.? states that patient was very drowsy and was not coherent and hence he decided to bring her to the ER.? Does have a history of UTIs in the past.? The patient does endorse increased frequency and hesitancy.? No burning micturition.? No fever, chills.? Unable to obtain complete review of systems Hospital Course Admitted to telemetry. Started on meropenem secondary to a history of resistant E coli. Over the course of her hospitalization a she remained afebrile and her mental status improved daily. Final culture grew out E coli sensitive to ertapenem. Midline was started and she was given initial dose of ertapenem and she will go home to complete 7 days of IV ertapenem daily. She is instructed to follow-up with Urology and her PCP within 1-2 weeks Time Spent with Patient Time attestation: Total time managing care of this patient today ____ minutes. Discharge coordination time: Greater than 30 minutes Quality: Safe Use of Opioids Does Pt have an Active Cancer Diagnosis on the Problem List?: No Quality: Stroke Does the patient have a stroke diagnosis?: No Physical Exam Vital Signs: Vital Signs: Last Vital Signs Temp 97.8 F 04/15/23 12:00 Pulse 85 04/15/23 12:00 Resp 20 04/15/23 12:00 BP 122/60 04/15/23 12:00 Pulse Ox 96 04/15/23 12:00 O2 Del Method Room Air 04/15/23 12:00 O2 Flow Rate 98 04/13/23 23:38 BMI result Body Mass Index 22.7 Const: Other: No acute distress Resp: Other: Clear to auscultation bilaterally no rales rhonchi or wheezes Cardio: Other: No S4; positive S1-S2; no S3 murmurs rubs or gallops GI: Other: Soft nontender nondistended normoactive bowel sounds Extrem: Other: No edema bilateral DS: Data Data Completed and Pending Completed studies during hospitalization [Text1]: Procedures Replacement of Left Knee Joint with Synthetic Substitute, Uncemented, Open Approach (10/06/20) Transfusion of Nonautologous Red Blood Cells into Peripheral Vein, Percutaneous Approach (10/06/20) Labs on day of discharge: Laboratory Results - last 24 hr 04/15/23 04/15/23 07:06 11:11 POC Glucose 92 113 Preliminary micro results at discharge 04/11/23 18:14 Blood Culture - Preliminary Blood - Venous No growth after 48 hours. 04/11/23 17:26 Blood Culture - Preliminary Blood - Venous No growth after 48 hours. Discharge Plan Discharge Anticipated Discharge Date/Time: 04/15/23 13:22 Patient Disposition: Home Health Service Discharge Diagnosis: UTI secondary to E coli Referrals: Vinicius Burnett MD [Primary Care Provider] - 1 Week Discharge Medications: New ertapenem 1 gram recon soln 1 g IV DAILY Qty: 7 0RF Continued omeprazole 20 mg capsule,delayed release(DR/EC) 20 mg PO DAILY Xarelto 20 mg tablet 20 mg PO DAILY Qty: 90 3RF Rx Instructions: must administer with evening meal folic acid 1 mg Tablet 1 mg PO DAILY Qty: 90 3RF estradiol 0.01 % (0.1 mg/gram) cream See Rx Instructions .Route 3XW 30 Days Qty: 42.5 2RF Rx Instructions: pea-sized to urethra 3 times a week gabapentin 300 mg capsule 300 mg PO DAILY 30 Days Qty: 90 3RF metoprolol tartrate 25 mg tablet 12.5 mg PO BID 90 Days Qty: 90 3RF magnesium oxide 400 mg magnesium tablet 400 mg PO BID Qty: 180 2RF quetiapine [Seroquel] 25 mg Tablet 25 mg PO BID lidocaine 5 % adhesive patch,medicated 2 patch topical DAILY Protocol: Apply to: Apply to: BACKS OF KNEES Rx Instructions: APPLY TO BACKS OF KNEES (DME) right mastectomy bra See Rx Instructions .Route .MEDSUPPLY Qty: 2 0RF Rx Instructions: As directed Discharge Orders: Discharge Order (Routine); Ordered 04/15/23 Ordered By: Aleksander Sawyer Diet: Advance to usual diet Activity on Discharge: As tolerated Stand Alone Forms: Patient Portal Discharge page Care Plan Goals: Ertapenem 1 g IV daily x7 days; VNA will assist Health Concerns: Follow-up with PCP and Urology as scheduled Plan of Treatment: Resume all medicines as taken prior to hospitalization Assessment: See discharge summary
== END 2023-04-15 13:00 | disposition home health service (06) | DRG 689 ==
LOC: HO.ED 19:10 → HO.EDOVER 19:13 → HO.IMC 04-12 15:06
PROVIDERS: Radiology Diagnostic Radiology; Student in an Organized Health Care Education/Training Program; Admitting Provider Student in an Organized Health Care Education/Training Program; Emergency Provider Emergency Medicine; PCP Internal Medicine; Visit Provider Hospitalist
DX: N39.0 Urinary tract infection, site not specified (principal); G93.41 Metabolic encephalopathy; E87.21 Acute metabolic acidosis; F03.90 Unspecified dementia, unspecified severity, without behavioral disturbance, psychotic disturbance, mood disturbance, and anxiety; E53.8 Deficiency of other specified B group vitamins; D75.89 Other specified diseases of blood and blood-forming organs; F39 Unspecified mood [affective] disorder; Z85.3 Personal history of malignant neoplasm of breast; B96.20 Unspecified Escherichia coli [E. coli] as the cause of diseases classified elsewhere; G62.9 Polyneuropathy, unspecified; Z86.711 Personal history of pulmonary embolism; Z87.440 Personal history of urinary (tract) infections; Z90.11 Acquired absence of right breast and nipple; Z79.01 Long term (current) use of anticoagulants; Z79.899 Other long term (current) drug therapy
CPT/HCPCS: 36410; 36415; 70450; 70496; 70498; 71045; 80048; 81001; 82550; 82947; 83605; 84484; 85025; 85610; 85730; 87040; 87086; 87088; 87186; 93005; 97161; 99285; C1751; J0696; J1335; J1642; J2185; Q9967

== ENCOUNTER 2023-04-20 14:43 | Outpatient (REF) | payer MEDICARE, SELFPAY ==
[2023-04-20 19:44] LABS: Basophils Absolute Auto 0.1 X10*3/uL (0.0-0.2); Basophils Percent Auto 1.1 % (0-2); Imm Gran Abs Auto 0.03 X10*3/uL (0.00-0.03); Imm Gran Pct Auto 0.7 % (0.0-0.4); MANUAL DIFF FLAG SCAN; PLT CLUMP 1; SCAN SMEAR FLAG 1
[2023-04-20 19:45] LABS: Eosinophils Percent Auto 0.7 % (0-4); Hemoglobin 11.7 g/dl (12.0-16.0); Lymphocytes Absolute Auto 0.8 X10*3/uL (1.2-4.9); Mean Corpuscular HGB Conc 32.5 g/dl (31.0-35.0); Mean Corpuscular Volume 107.8 fL (80.0-98.0); Mean Platelet Volume 11.2 fL (9.4-12.3); Monocytes Absolute Auto 0.8 X10*3/uL (0.1-1.2); Monocytes Percent Auto 17.2 % (2-11); Neutrophils Absolute Auto 2.8 x10*3/uL (2.0-8.3); Neutrophils Percent Auto 63.3 % (45-73); Red Blood Count 3.34 X10*6/uL (4.20-5.50); Red Cell Distribution Width 13.5 % (11.0-16.0)
[2023-04-20 19:48] LABS: Alanine Aminotransferase 30 U/L (0-31); Albumin Level 3.4 g/dL (3.5-5.0); Alkaline Phosphatase 102 U/L (39-117); Anion Gap 12 (12-20); Aspartate Amino Transferase 51 U/L (5-31); Bilirubin Total 0.7 mg/dL (0.0-1.0); Blood Urea Nitrogen 13 mg/dL (9-16); Calcium 8.8 mg/dL (8.4-10.2); Carbon Dioxide 24 mmol/L (22-29); Chloride 102 mmol/L (96-108); Estimated Glomerular Filt Rate > 60; Glucose Random 81 mg/dL (60-115); Potassium 3.8 mmol/L (3.3-5.1); Sodium 134 mmol/L (135-145); Total Protein 6.4 g/dL (6.5-8.0)
[2023-04-20 20:00] LABS: Platelet Count 124 X10*3/uL (160-400); White Blood Count 4.5 X10*3/uL (4.8-10.8)
[2023-04-20 20:12] LABS: SLIDE REVIEW VERIFIED
== END 2023-04-20 14:44 | disposition home or self-care (01) ==
LOC: HO.HVNA 14:43
PROVIDERS: PCP Internal Medicine; Visit Provider Internal Medicine
DX: N39.0 Urinary tract infection, site not specified (principal)
CPT/HCPCS: 36415; 80053; 85025

== ENCOUNTER 2023-04-21 02:17 | Emergency (ER) | payer MEDICARE, SELFPAY ==
--- NOTE | ~2023-04-21 | CT_ITS ---
EXAMINATION: CT LUMBAR SPINE WITHOUT CONTRAST CLINICAL INFORMATION: Fall, lumbar pain, rule out fracture COMPARISON: CT abdomen/pelvis 04/04/2021 TECHNIQUE: No intravenous contrast was utilized. Multidetector helical imaging was performed through the lumbar spine. Coronal and sagittal reformatted images were created. This CT examination was performed using dose optimization techniques as appropriate, variously including the following: *Automated exposure control *Adjustment of mA and/or kV according to patient size (this includes techniques or standardized protocols for targeted exams where dose is matched to indication/reason for exam; i.e. extremities or head) *Use of iterative reconstruction technique DLP; 967 mGy-cm FINDINGS: There is anatomic alignment of the lumbar vertebral bodies and posterior elements. Vertebral body heights are maintained. There is mild disc space narrowing at L5-S1. Multilevel endplate osteophytes are present. No acute fracture is seen. There is mild to moderate facet arthropathy most prominently in the lower lumbar spine. Included upper sacroiliac joints appear intact. There is suggestion of mild multilevel disc protrusions without significant stenosis, though assessment for this is suboptimal on CT. Scattered atherosclerotic calcifications are present along the aorta and iliac vessels. CT/CT lumbar spine wo IV con IMPRESSION: No acute osseous findings identified. Degenerative changes as noted above.
--- NOTE | ~2023-04-21 | CT_ITS ---
EXAMINATION: CT HEAD WITHOUT CONTRAST CLINICAL INFORMATION: Fall, head injury, on anticoagulation COMPARISON: 04/11/2023 TECHNIQUE: Contiguous axial imaging was performed from the skull base to vertex without intravenous administration of contrast. This CT examination was performed using dose optimization techniques as appropriate, variously including the following: *Automated exposure control *Adjustment of mA and/or kV according to patient size (this includes techniques or standardized protocols for targeted exams where dose is matched to indication/reason for exam; i.e. extremities or head) *Use of iterative reconstruction technique DLP: 967 mGy-cm FINDINGS: There is no evidence of acute intracranial hemorrhage or territorial infarction. No abnormal mass-effect or midline shift is seen. Carias to white matter differentiation is well preserved. No extra-axial fluid collections are identified. The ventricles are normal in size. There is mild periventricular white matter hypoattenuation consistent with chronic small vessel ischemic disease. Moderate volume loss is noted. Chronic appearing right basal ganglia lacunar infarct. The osseous structures and soft tissues are normal. The mastoid air cells and visualized portions of the paranasal sinuses are well-aerated. CT/CT head/brain wo IV con IMPRESSION: No acute intracranial pathology. Chronic small vessel ischemic disease and volume loss.
--- NOTE | ~2023-04-21 | XR_ITS ---
EXAMINATION: XR SHOULDER, RIGHT CLINICAL INFORMATION: Right shoulder pain, rule out fracture COMPARISON: None available. TECHNIQUE: Three views of the right shoulder. FINDINGS: Glenohumeral alignment is anatomic. No acute fracture is seen. There is mild degenerative change along the glenoid. Acromioclavicular joint is intact with mild to moderate degenerative change. XR/XR shoulder RT min 2V IMPRESSION: No acute findings. Degenerative changes as noted above.
[2023-04-21 02:30] VITALS: BP 131/71; PULSE 77; RESP 12; TEMP 36.4; O2SAT 97
[2023-04-21 02:32] VITALS: BP 131/70; BP 144/77; PULSE 80; PULSE 86; RESP 20; TEMP 36.4; O2SAT 97; O2SAT 99; BMI 24.0
[2023-04-21 03:08] VITALS: BP 137/75; PULSE 77; RESP 18; TEMP 37
--- NOTE | 2023-04-21 03:23 | ED.FALL ---
HPI - Fall General Chief Complaint: Fall Stated Complaint: Fall Time Seen by Provider: 04/21/23 03:07 Source: patient Mode of arrival: EMS Limitations: no limitations History of Present Illness HPI Narrative: 82-year-old female with pertinent history of mood disorder, history of PE on Xarelto, dementia, gastroesophageal reflux disease, recurrent UTI, history of breast cancer (2006) in remission who was brought to the emergency department for evaluation of fall. The patient states she got up to go to the bathroom and was using her walker. She went to turn off the lights, turned, lost her balance and fell. She states that she struck her head, right shoulder and buttocks on the floor. Her heard her fall and came to her immediately. Patient states she did not lose consciousness. She remained on the floor until the paramedics arrived and transported her to the emergency department. At the time of evaluation she is complaining of a [id number] headache, right posterior shoulder pain, right buttocks pain and lower back pain with difficulty sitting up secondary to the back pain. I did review the patient's in-patient record from S 04/04/2023 until 04/15/2023. Patient was admitted for confusion secondary to metabolic encephalopathy caused by acute urinary tract infection. Patient grew resistant E coli sensitive to ertapenem. She states she has been receiving ertapenem through a right midline IV daily and has 1 more dose. Related Data Home Medications Medication Instructions Recorded Confirmed omeprazole 20 mg capsule,delayed 20 mg PO DAILY 01/08/22 04/11/23 release lidocaine 5 % topical patch 2 patch topical DAILY pain 04/11/23 04/11/23 quetiapine 25 mg tablet (Seroquel) 25 mg PO BID 04/11/23 04/11/23 Previous Rx's Medication Instructions Recorded rivaroxaban 20 mg tablet (Xarelto) 20 mg PO DAILY #90 tabs 08/06/22 folic acid 1 mg tablet 1 mg PO DAILY #90 tabs 09/02/22 right mastectomy bra #2 ea 10/22/22 estradiol 0.01% (0.1 mg/gram) See Rx Instructions .Route 3XW 30 01/12/23 vaginal cream days #42.5 grams gabapentin 300 mg capsule 300 mg PO DAILY pain 30 days #90 02/28/23 caps metoprolol tartrate 25 mg tablet 12.5 mg PO BID 90 days #90 tabs 02/28/23 magnesium oxide 400 mg PO BID #180 tabs 03/10/23 ertapenem 1 gram solution for 1 g IV DAILY #7 ea 04/15/23 injection Allergies Allergy/AdvReac Type Severity Reaction Status Date / Time sulfamethoxazole Allergy Severe Itching Verified 04/11/23 20:57 [From Bactrim] trimethoprim [From Bactrim] Allergy Severe Itching Verified 04/11/23 20:57 cortisone [Cortisone] Allergy Mild PT STATES, Verified 04/11/23 20:57 hx TB IT COULD AFFECT CRYSTALS IN LUNG prochlorperazine Allergy Mild LEG Verified 04/11/23 20:57 [From Compazine] NUMBNESS hydrochlorothiazide Allergy Unknown RASH Verified 04/11/23 20:57 levofloxacin [Levaquin] Allergy Unknown Wakefulness, Verified 04/11/23 20:57 nausea, shaking Sulfa (Sulfonamide AdvReac Intermediate rash Verified 04/11/23 20:57 Antibiotics) codeine AdvReac Unknown NAUSEA/VOMI Verified 04/11/23 20:57 TING chocolate Allergy Unknown severe Uncoded 03/08/23 13:58 headaches/vomiting Review of Systems Review of Systems: Yes all other systems are reviewed and are negative [facility] Past Medical History [facility] Narrative: Social history: She lives at home with her . Denies tobacco, alcohol and drug use. Medical History B12 deficiency Breast cancer Fatty liver, alcoholic GERD (gastroesophageal reflux disease) History of alcohol use History of pulmonary embolism History of right breast cancer HTN (hypertension) Hx of deep venous thrombosis Hx of hypercalcemia Hx of metabolic acidosis Hx of tuberculosis Hypomagnesemia Impaired fasting glucose Irritable bowel syndrome Osteoarthritis of left knee Osteoporosis Peripheral neuropathy Pernicious anemia Thrombocytopenia TIA (transient ischemic attack) Surgical History H/O right mastectomy History of appendectomy History of arthroplasty of left knee History of cataract surgery History of cystoscopy History of esophagogastroduodenoscopy (EGD) History of evacuation of hematoma History of knee replacement procedure of right knee History of left knee surgery History of lumpectomy of right breast History of tonsillectomy Hx of adenoidectomy Hx of colonoscopy S/P SASHA-BSO (total abdominal hysterectomy and bilateral salpingo-oophorectomy) Family History Family History Father No problems noted. Mother No problems noted. Other No family history of cancer Social History Social History Household Members: Spouse Housing: House Are you a primary residential child care counselor to a significant other at home: No Do you presently have visiting nurse or other home services: No Alcohol intake: never Patient Tobacco Use Status: Never used Tobacco e-Cigarette/Vaping Use: Never Used Second Hand Smoke Exposure: No Advance Directives Date on File: 12/24/21 service: No Current occupational status: retired Cognitive needs: No Hearing needs: No Vision needs: Yes Physical Exam Vital Signs: Vital Signs: Last Vital Signs Temp 97.4 F 04/21/23 07:13 Pulse 101 H 04/21/23 09:52 Resp 16 04/21/23 07:13 BP 136/78 04/21/23 07:13 Pulse Ox 97 04/21/23 09:52 O2 Del Method Room Air 04/21/23 07:13 BMI result Body Mass Index 24.0 Const: Other: Awake, alert, female patient, pleasant, cooperative, no distress, answers all questions appropriately HEENT: Other: Patient has tenderness palpation over her right occipital scalp, no hematoma or laceration noted Ears: external ears normal General nose exam: Normal external nose present Face and sinus: Yes normal facial exam Mouth: Normal oral and palatal mucosa present Throat: Yes posterior oropharynx normal Eyes: General: appearance normal, both eyes and all related structures Pupils: Equal, round and reactive pupils present Neck: Neck: Yes normal visual inspection, Yes no lymphadenopathy, Yes trachea midline and Yes supple Chest: Chest palpation & inspection: normal inspection of the chest and normal palpation of entire chest wall Resp: Effort & Inspection: normal respiratory effort and able to speak in complete sentences Auscultation: clear to auscultation bilaterally Cardio: Rate: regular rate Rhythm: regular rhythm Heart sounds: S1 normal heart sound present, S2 normal heart sound present and no murmurs GI: Inspection: Yes normal to inspection Palpation (GI): Soft to palpation, nontender and no guarding Auscultation: normal bowel sounds Back/Spine/Pelvis: Other: Patient has tenderness palpation over her thoracic spine and para spinal thoracic muscles bilaterally. Skin: General skin exam: no rashes or lesions noted Neuro: Cranial nerves: Yes CN's II-XII intact bilaterally and Yes Equal, round and reactive pupils present Cognition (Neuro): normal cognition Motor exam (neuro): 5/5 motor strength present throughout Extrem: Other: Patient has tenderness palpation patient over her right shoulder and scapular area, extremities neurovascular intact. Psych: Appearance: grossly normal Speech and movement: Normal speech and movement present Affect: normal affect Attitude: cooperative Thought process: Normal thought process present Thought content: Normal thought content present Course Reevaluation(s) Reevaluation #1: [facility] called Case Management this morning and there have been reports that patient has been falling at home. Case Management and PT evaluation placed. Time: 08:32 Reevaluation #2: Patient refusing to stay for PT eval and case management, patient has a safe place to go with . Patient has the capacity to make her own decisions. Pt has [facility] services at home. Patient stable for discharge. Medications Administered Discontinued Medications Generic Name Dose Route Start Last Admin Trade Name Freq PRN Reason Stop Dose Admin Acetaminophen 975 mg 04/21/23 03:19 04/21/23 04:16 Acetaminophen 325 Mg Tablet PO 04/21/23 03:20 975 mg ONCE STA Administration Medical Decision Making Medical Decision Making MDM Narrative: 82-year-old female who presents emergency department for evaluation of fall at home. The patient states she does have difficulty with her balance, uses a walker but often falls frequently. The patient got up to go to the bathroom, she was using her walker, she went did turn off a light and fell. Patient did strike her head, right shoulder and back on the floor. She is on Eliquis for pulmonary emboli. She had no loss of consciousness. She does have tenderness palpation of her right a subtotal scalp, right shoulder and thoracic spine. I ordered a CBC, CMP, PT/INR, PTT, CT scan of the head and thoracic spine. I also ordered a right shoulder x-ray. Patient's pain was treated with Tylenol 975 mg orally. 0530: The patient's x-ray of her right shoulder, CT scan of head and CT scan of the thoracic spine did not reveal any acute fractures. Patient's laboratory evaluation was also unremarkable which is reassuring. 0700: Patient was able to ambulate using a walker without any difficulty She was D/C home Advised to take Tyenol for pain. Differential Diagnosis Differential diagnosis includes but is not limited to skull fracture, cerebral bleed, right shoulder fracture, right scapular fracture, thoracic spine fracture, electrolyte abnormality, anemia, urinary tract infect Admission/Observation Consideration of admission/observation: Escalation of care including admission/observation considered Lab Data MDM Lab Attestation statement: I reviewed the patient's lab results. My interpretation patient's laboratory evaluation is as follows: Mild anemia with an H&H of 11.4 and 35.8-this is chronic. Elevated AST of 39. No significant abnormalities which is reassuring. 04/21/23 04:44 04/21/23 04:44 Labs: Lab Results 04/21/23 04/21/23 04/21/23 Range/Units 04:44 04:44 05:08 WBC 4.8 (4.8-10.8) X10*3/uL RBC 3.30 L (4.20-5.50) X10*6/uL Hgb 11.4 L (12.0-16.0) g/dl Hct 35.8 L (37.0-47.0) % MCV 108.5 H (80.0-98.0) fL MCH 34.5 H (27.0-33.0) pg MCHC 31.8 (31.0-35.0) g/dl RDW 13.2 (11.0-16.0) % Plt Count 113 L (160-400) X10*3/uL MPV 10.5 (9.4-12.3) fL Immature Gran % (Auto) 0.4 (0.0-0.4) % Neut % (Auto) 64.4 (45-73) % Lymph % (Auto) 17.4 L (20-40) % [place] % (Auto) 16.6 H (2-11) % Eos % (Auto) 0.6 (0-4) % Baso % (Auto) 0.6 (0-2) % Lymph # (Auto) 0.8 L (1.2-4.9) X10*3/uL [place] # (Auto) 0.8 (0.1-1.2) X10*3/uL Eos # (Auto) 0.0 (0.0-0.4) X10*3/uL Baso # (Auto) 0.0 (0.0-0.2) X10*3/uL Abs Immat Gran (auto) 0.02 (0.00-0.03) X10*3/uL Absolute Neuts (auto) 3.1 (2.0-8.3) x10*3/uL Absolute Nucleated RBC 0.000 (0.0-0.012) X10*3/uL Nucleated RBC % (auto) 0.0 (0.0-0.2) /100WBC PT 10.9 (10.0-13.1) SEC INR 1.0 (0.9-1.1) APTT 30.8 (26.0-36.4) SEC Sodium 140 (135-145) mmol/L Potassium 3.8 (3.3-5.1) mmol/L Chloride 105 (96-108) mmol/L Carbon Dioxide 25 (22-29) mmol/L Anion Gap 14 (12-20) BUN 11 (9-16) mg/dL Creatinine 0.85 (0.5-1.4) mg/dL Estim Creat Clear Calc 45.6 Estimated GFR > 60 Random Glucose 88 (60-115) mg/dL Calcium 9.5 D (8.4-10.2) mg/dL Total Bilirubin 0.8 (0.0-1.0) mg/dL AST 39 H (5-31) U/L ALT 26 (0-31) U/L Alkaline Phosphatase 102 (39-117) U/L Total Protein 6.4 L (6.5-8.0) g/dL Albumin 3.4 L (3.5-5.0) g/dL Urine Color Urine Appearance Urine pH (5.0-9.0) Ur Specific [place] (1.005-1.025) Urine Protein (Neg-Trace) mg/dL Urine Glucose (UA) (Negative) mg/dL Urine Ketones (Negative) mg/dL Urine Blood (Negative) Urine Nitrite (Negative) Ur Leukocyte Esterase (Negative) Urine RBC (0-2) /HPF Urine WBC (0-5) /HPF Ur Squamous Epith Cells (0-2) /HPF Urine Bacteria (None Seen) Hyaline Casts (0-2) /LPF Urine Yeast COVID-19 ([facility]ITZ) (Negative) COVID-19 Clin Com 04/21/23 04/21/23 Range/Units 05:39 08:16 WBC (4.8-10.8) X10*3/uL RBC (4.20-5.50) X10*6/uL Hgb (12.0-16.0) g/dl Hct (37.0-47.0) % MCV (80.0-98.0) fL MCH (27.0-33.0) pg MCHC (31.0-35.0) g/dl RDW (11.0-16.0) % Plt Count (160-400) X10*3/uL MPV (9.4-12.3) fL Immature Gran % (Auto) (0.0-0.4) % Neut % (Auto) (45-73) % Lymph % (Auto) (20-40) % [place] % (Auto) (2-11) % Eos % (Auto) (0-4) % Baso % (Auto) (0-2) % Lymph # (Auto) (1.2-4.9) X10*3/uL [place] # (Auto) (0.1-1.2) X10*3/uL Eos # (Auto) (0.0-0.4) X10*3/uL Baso # (Auto) (0.0-0.2) X10*3/uL Abs Immat Gran (auto) (0.00-0.03) X10*3/uL Absolute Neuts (auto) (2.0-8.3) x10*3/uL Absolute Nucleated RBC (0.0-0.012) X10*3/uL Nucleated RBC % (auto) (0.0-0.2) /100WBC PT (10.0-13.1) SEC INR (0.9-1.1) APTT (26.0-36.4) SEC Sodium (135-145) mmol/L Potassium (3.3-5.1) mmol/L Chloride (96-108) mmol/L Carbon Dioxide (22-29) mmol/L Anion Gap (12-20) BUN (9-16) mg/dL Creatinine (0.5-1.4) mg/dL Estim Creat Clear Calc Estimated GFR Random Glucose (60-115) mg/dL Calcium (8.4-10.2) mg/dL Total Bilirubin (0.0-1.0) mg/dL AST (5-31) U/L ALT (0-31) U/L Alkaline Phosphatase (39-117) U/L Total Protein (6.5-8.0) g/dL Albumin (3.5-5.0) g/dL Urine Color Yellow Urine Appearance Clear Urine pH 6.0 (5.0-9.0) Ur Specific [place] 1.015 (1.005-1.025) Urine Protein Trace (Neg-Trace) mg/dL Urine Glucose (UA) Negative (Negative) mg/dL Urine Ketones Trace (Negative) mg/dL Urine Blood Negative (Negative) Urine Nitrite Negative (Negative) Ur Leukocyte Esterase Moderate (2+) H (Negative) Urine RBC >20 H (0-2) /HPF Urine WBC 21-50 H (0-5) /HPF Ur Squamous Epith Cells 0-2 (0-2) /HPF Urine Bacteria None Seen (None Seen) Hyaline Casts 0-2 (0-2) /LPF Urine Yeast Present COVID-19 (FRITZ) Negative (Negative) COVID-19 Clin Com See Note Independent Interpretation I performed an independent interpretation of an: Plain X-Ray and CT Scan Interpretation: My independent interpretation the patient's right shoulder x-rays as follows: No acute fracture. My independent interpertaiton of the patient's CT Brain with out contrast is as follows: no acute fracture or bleed seen by me. Radiology Impression Discussion of test interpretation with radiology: I have reviewed the radiologist's reading. Radiologist Impression: XR shoulder RT min 2V IMPRESSION: No acute findings. Degenerative changes as noted above. Dictated By:Mariano Matthew MD CT lumbar spine wo IV con IMPRESSION: No acute osseous findings identified. Degenerative changes as noted above. Dictated By:Mariano Matthew MD CT head/brain wo IV con IMPRESSION: No acute intracranial pathology. Chronic small vessel ischemic disease and volume loss. Dictated By:Mariano Matthew MD Independent Historian Clinical information obtained from an independent historian. History obtained from or confirmed by: EMS External Record Review External record reviewed: Inpatient record Prescription Management I considered prescription management with: Pain Medication Chronic Conditions Patient?s care impacted by: Hypertension Discharge Plan Discharge Clinical Impression: Lumbar back pain Fall Qualifiers: Encounter type: initial encounter Qualified Code(s): W19.XXXA - Unspecified fall, initial encounter Closed head injury Qualifiers: Encounter type: initial encounter Qualified Code(s): S09.90XA - Unspecified injury of head, initial encounter Patient Disposition: Home, Self-Care Instructions: Fall Prevention for Older Adults (ED), Head Injury (ED), Back Pain (ED) Additional Instructions: OVER THE COUNTER: EXTRA STRENGTH TYLENOL 500MG PILLS TAKE 2 PILLS EVERY 6 HOURS NEEDED FOR PAIN Prescriptions: No Action omeprazole 20 mg capsule,delayed release(DR/EC) 20 mg PO DAILY Xarelto 20 mg tablet 20 mg PO DAILY Qty: 90 3RF Rx Instructions: must administer with evening meal folic acid 1 mg Tablet 1 mg PO DAILY Qty: 90 3RF estradiol 0.01 % (0.1 mg/gram) cream See Rx Instructions .Route 3XW 30 Days Qty: 42.5 2RF Rx Instructions: pea-sized to urethra 3 times a week gabapentin 300 mg capsule 300 mg PO DAILY 30 Days Qty: 90 3RF metoprolol tartrate 25 mg tablet 12.5 mg PO BID 90 Days Qty: 90 3RF magnesium oxide 400 mg magnesium tablet 400 mg PO BID Qty: 180 2RF quetiapine [Seroquel] 25 mg Tablet 25 mg PO BID lidocaine 5 % adhesive patch,medicated 2 patch topical DAILY Protocol: Apply to: Apply to: BACKS OF KNEES Rx Instructions: APPLY TO BACKS OF KNEES ertapenem 1 gram recon soln 1 g IV DAILY Qty: 7 0RF (DME) right mastectomy bra See Rx Instructions .Route .MEDSUPPLY Qty: 2 0RF Rx Instructions: As directed Referrals: [facility] [Outside] Interventions: ED Discharge Assessment Last Done: 04/21/23 11:04 Discharge Date/Time: 04/21/23 11:06
[2023-04-21 04:02] VITALS: BP 136/49; PULSE 82; RESP 12; TEMP 36.8; O2SAT 100
[2023-04-21] MEDS: Acetaminophen 325 MG TABLET 975 MG PO (04:16)
[2023-04-21 04:47] LABS: MANUAL DIFF FLAG NO
[2023-04-21 04:48] LABS: Basophils Percent Auto 0.6 % (0-2); Eosinophils Percent Auto 0.6 % (0-4); Hematocrit 35.8 % (37.0-47.0); Hemoglobin 11.4 g/dl (12.0-16.0); Imm Gran Abs Auto 0.02 X10*3/uL (0.00-0.03); Imm Gran Pct Auto 0.4 % (0.0-0.4); Lymphocytes Absolute Auto 0.8 X10*3/uL (1.2-4.9); Lymphocytes Percent Auto 17.4 % (20-40); Mean Corpuscular HGB Conc 31.8 g/dl (31.0-35.0); Mean Corpuscular Hemoglobin 34.5 pg (27.0-33.0); Mean Corpuscular Volume 108.5 fL (80.0-98.0); Mean Platelet Volume 10.5 fL (9.4-12.3); Monocytes Absolute Auto 0.8 X10*3/uL (0.1-1.2); Monocytes Percent Auto 16.6 % (2-11); Neutrophils Absolute Auto 3.1 x10*3/uL (2.0-8.3); Neutrophils Percent Auto 64.4 % (45-73); Platelet Count 113 X10*3/uL (160-400); Red Cell Distribution Width 13.2 % (11.0-16.0); White Blood Count 4.8 X10*3/uL (4.8-10.8)
[2023-04-21 05:03] LABS: Alanine Aminotransferase 26 U/L (0-31); Albumin Level 3.4 g/dL (3.5-5.0); Alkaline Phosphatase 102 U/L (39-117); Anion Gap 14 (12-20); Aspartate Amino Transferase 39 U/L (5-31); Bilirubin Total 0.8 mg/dL (0.0-1.0); Blood Urea Nitrogen 11 mg/dL (9-16); Calcium 9.5 mg/dL (8.4-10.2); Carbon Dioxide 25 mmol/L (22-29); Chloride 105 mmol/L (96-108); Creatinine Clr Calc Pharmacy 45.6; Estimated Glomerular Filt Rate > 60; Glucose Random 88 mg/dL (60-115); Potassium 3.8 mmol/L (3.3-5.1); Sodium 140 mmol/L (135-145); Total Protein 6.4 g/dL (6.5-8.0)
[2023-04-21 05:22] LABS: Prothrombin Time 10.9 SEC (10.0-13.1)
[2023-04-21 05:24] LABS: Partial Thromboplastin Time 30.8 SEC (26.0-36.4)
[2023-04-21 05:45] LABS: Appearance Urine Clear; Color Urine Yellow; Glucose Urine UA Negative (Negative); Leukocyte Esterase Urine Moderate (2+) (Negative); Nitrite Urine Negative (Negative); Specific Gravity - Urine 1.015 (1.005-1.025); UMIC TRIGGER UACC YES; Urine Blood Negative (Negative); Urine Ketones Trace mg/dL (Negative); Urine Protein Trace mg/dL (Neg-Trace)
[2023-04-21 05:56] LABS: Bacteria Urine None Seen (None Seen); Hyaline Casts Urine 0-2 /LPF (0-2); RBC Urine >20 /HPF (0-2); Squamous Epithelial Cell Urine 0-2 /HPF (0-2); UACC Culture Trigger YES; WBC Urine 21-50 /HPF (0-5)
[2023-04-21 07:13] VITALS: BP 136/78; PULSE 88; RESP 16; TEMP 36.3; O2SAT 97
--- NOTE | 2023-04-21 08:17 | PC.NURSE ---
see paper documentation for down time charting
--- NOTE | 2023-04-21 08:34 | PC.NURSE ---
spoke with case management- made contact and does not feel safe taking pt home d/t recent falling. plan for consult to pt/cm.
[2023-04-21 08:48] LABS: COVID-19 Test Negative (Negative); IDNOW Serial# 6674DD1D
--- NOTE | 2023-04-21 09:04 | PC.NURSE ---
at bedside. aware of plan of care for pt eval then search for placement
--- NOTE | 2023-04-21 09:49 | PC.NURSE ---
eval completed by PT plan for STR
[2023-04-21 09:52] VITALS: PULSE 101; O2SAT 97
--- NOTE | 2023-04-21 10:17 | PC.NURSE ---
pt refusing STR, at bedside does not feel safe taking patient home. cm aware and states she will talk to pt and .
--- NOTE | 2023-04-21 11:04 | PC.NURSE ---
pt and requesting dc paperwork. cm and provider aware.
--- NOTE | 2023-04-21 11:08 | MHC.CM.ED ---
Received case management consult. Patient came to the ER due to a fall. Work up essentially negative. Received telephone call from [facility]. Patient's called the [facility] so upset that patient has fallen 3 times in the past 3 days. reports feeling overwhelmed and concerned about his . Physical therapy eval completed. Referrals to acute rehab and halfway facilities started. Patient and [facility] Continue to monitor for d/c needs.
== END 2023-04-21 11:06 | disposition home or self-care (01) ==
PROVIDERS: Physician Assistant Medical; Emergency Provider Emergency Medicine Emergency Medical Services; PCP Internal Medicine
DX: S09.90XA Unspecified injury of head, initial encounter (principal); W18.39XA Other fall on same level, initial encounter; Z91.81 History of falling; Y93.89 Activity, other specified; Y92.002 Bathroom of unspecified non-institutional (private) residence as the place of occurrence of the external cause; R82.90 Unspecified abnormal findings in urine; M54.50 Low back pain, unspecified; Z86.711 Personal history of pulmonary embolism; Z79.01 Long term (current) use of anticoagulants; Z87.440 Personal history of urinary (tract) infections; Z20.822 Contact with and (suspected) exposure to COVID-19
CPT/HCPCS: 36415; 70450; 72131; 73030; 80053; 81001; 85025; 85610; 85730; 87086; 87088; 87635; 97161; 99284

== ENCOUNTER → 2023-04-22 14:29 | Outpatient (BNVA) | payer MEDICARE, SELFPAY | PROVIDERS: PCP Internal Medicine; Visit Provider Internal Medicine | DX: N39.0 Urinary tract infection, site not specified (principal); Z45.2 Encounter for adjustment and management of vascular access device | CPT/HCPCS: 99212 ==

== ENCOUNTER 2023-04-26 16:04 | Observation (INO) | payer MEDICARE, SELFPAY ==
[2023-04-26 16:26] VITALS: BP 128/69; BP 98/50; PULSE 81; PULSE 86; RESP 14; TEMP 36.4; O2SAT 100; O2SAT 99; BMI 23.1
--- NOTE | 2023-04-26 17:41 | ED.WEAKNESS ---
HPI - Weakness General Chief complaint: Weakness Stated complaint: Stroke ? Time Seen by Provider: 04/26/23 16:12 History of Present Illness HPI Narrative: Patient is an 82-year-old female with a history of pulmonary emboli. History of falls. Patient just got home a few days. Was noted to have sudden change in mental status. Family reported initially patient had weakness to the left side. Patient unable to recall. On arrival patient was able to move all extremities. She has a history of UTIs in the past. History of hypertension, encephalopathy, confusion MD Complaint: focal weakness Related Data Home Medications Medication Instructions Recorded Confirmed omeprazole 20 mg capsule,delayed 20 mg PO DAILY 01/08/22 04/11/23 release lidocaine 5 % topical patch 2 patch topical DAILY pain 04/11/23 04/11/23 quetiapine 25 mg tablet (Seroquel) 25 mg PO BID 04/11/23 04/11/23 Previous Rx's Medication Instructions Recorded rivaroxaban 20 mg tablet (Xarelto) 20 mg PO DAILY #90 tabs 08/06/22 folic acid 1 mg tablet 1 mg PO DAILY #90 tabs 09/02/22 right mastectomy bra #2 ea 10/22/22 estradiol 0.01% (0.1 mg/gram) See Rx Instructions .Route 3XW 30 01/12/23 vaginal cream days #42.5 grams gabapentin 300 mg capsule 300 mg PO DAILY pain 30 days #90 02/28/23 caps metoprolol tartrate 25 mg tablet 12.5 mg PO BID 90 days #90 tabs 02/28/23 magnesium oxide 400 mg PO BID #180 tabs 03/10/23 ertapenem 1 gram solution for 1 g IV DAILY #7 ea 04/15/23 injection methenamine hippurate 1 gram tablet 1 g PO BID 30 days #60 tabs 04/22/23 Allergies Allergy/AdvReac Type Severity Reaction Status Date / Time sulfamethoxazole Allergy Severe Itching Verified 04/22/23 14:49 [From Bactrim] trimethoprim [From Bactrim] Allergy Severe Itching Verified 04/22/23 14:49 cortisone [Cortisone] Allergy Mild PT STATES, Verified 04/22/23 14:49 hx TB IT COULD AFFECT CRYSTALS IN LUNG prochlorperazine Allergy Mild LEG Verified 04/22/23 14:49 [From Compazine] NUMBNESS hydrochlorothiazide Allergy Unknown RASH Verified 04/22/23 14:49 levofloxacin [Levaquin] Allergy Unknown Wakefulness, Verified 04/22/23 14:49 nausea, shaking Sulfa (Sulfonamide AdvReac Intermediate rash Verified 04/22/23 14:49 Antibiotics) codeine AdvReac Unknown NAUSEA/VOMI Verified 04/22/23 14:49 TING chocolate Allergy Unknown severe Uncoded 03/08/23 13:58 headaches/vomiting Review of Systems Review of Systems: Positive weakness on the left side reported. Patient unable to recall. Yes all other systems are reviewed and are negative [facility] Past Medical History Attestation statement: The following information was validated with the patient. Medical History B12 deficiency Breast cancer Fatty liver, alcoholic GERD (gastroesophageal reflux disease) History of alcohol use History of pulmonary embolism History of right breast cancer HTN (hypertension) Hx of deep venous thrombosis Hx of hypercalcemia Hx of metabolic acidosis Hx of tuberculosis Hypomagnesemia Impaired fasting glucose Irritable bowel syndrome Osteoarthritis of left knee Osteoporosis Peripheral neuropathy Pernicious anemia Thrombocytopenia TIA (transient ischemic attack) Surgical History H/O right mastectomy History of appendectomy History of arthroplasty of left knee History of cataract surgery History of cystoscopy History of esophagogastroduodenoscopy (EGD) History of evacuation of hematoma History of knee replacement procedure of right knee History of left knee surgery History of lumpectomy of right breast History of tonsillectomy Hx of adenoidectomy Hx of colonoscopy S/P SASHA-BSO (total abdominal hysterectomy and bilateral salpingo-oophorectomy) Family History Family History Father No problems noted. Mother No problems noted. Other No family history of cancer Social History Social History Household Members: Spouse Housing: House Are you a primary pediatric critical care nurse to a significant other at home: No Do you presently have visiting nurse or other home services: No Alcohol intake: never Patient Tobacco Use Status: Never used Tobacco Smoked in Last 30 Days: No e-Cigarette/Vaping Use: Never Used Second Hand Smoke Exposure: No Use of substances other than those prescribed or required for medical reasons: No Advance Directives: Yes Advance Directives on File: Yes Advance Directives Date on File: 12/24/21 service: No Current occupational status: retired Cognitive needs: No Hearing needs: No Vision needs: Yes Physical Exam Vital Signs: Vital Signs: Last Vital Signs Temp 97.6 F 04/26/23 19:10 Pulse 77 04/26/23 19:10 Resp 13 04/26/23 19:10 BP 134/64 04/26/23 19:10 Pulse Ox 97 04/26/23 19:10 O2 Del Method Room Air 04/26/23 19:10 BMI result Body Mass Index 23.1 Appearance: Alert. Oriented X3. No acute distress. Eyes: Pupils equal, round and reactive to light. ENT: Pharynx normal. Neck: Normal inspection. Neck supple. No lymph nodes noted. No crepitus CVS: Normal heart rate and rhythm. Pulses normal. Normal S1 and S2 Respiratory: No respiratory distress. Breath sounds normal. No Wheezing. No rales Abdomen: Soft and nontender. No rigidity. No distention. good BS x4 Skin: Skin warm and dry. Normal skin color. Normal skin turgor. Extremities: No lower extremity edema. Neurovascular intact to all extremities. No Lacerations. No Rash. Cranial nerve intact. Ring all extremities good equal strength in upper and lower extremity Neuro: Oriented X 3. No motor deficit. No sensory deficit. Moving all extermities. No slurred speech NIH Stroke Scale Internal: Initial- Upon Arrival Time: 17:44 Level of Consciousness: Alert Level of Consciousness Questions: Answers both questions correctly Level of Consciousness Commands: Performs both tasks correctly Best Gaze: Normal Visual: No visual loss Facial Palsy: Normal Motor Arm (Right): No drift Motor Arm (Left): No drift Motor Leg (Right): No drift Motor Leg (Left): No drift Limb Ataxia: Absent Sensory: Normal Best Language: No aphasia Dysarthia: Normal Extinction and Inattention: No abnormality Score: 0 Medications Administered Discontinued Medications Generic Name Dose Route Start Last Admin Trade Name Freq PRN Reason Stop Dose Admin Acetaminophen 650 mg 04/26/23 16:22 04/26/23 16:28 Acetaminophen Supp 650 Mg Supp.Rect HI 04/26/23 16:23 Not Given ONCE ONE Sodium Chloride 1,000 mls @ 999 mls/hr 04/26/23 16:30 04/26/23 17:37 Ns IV 04/26/23 17:30 Infused .Q1H1M ADAM Infusion Medical Decision Making Medical Decision Making [facility] Narrative: Patient 82-year-old female upon further questioning patient's family stated patient did not feel well. Was complaining that she feels very weak. Then passed out. EMS was contacted. On EMS arrival there was a question left-sided weakness. Upon arrival in emergency department patient was weak all over. She was lethargic. Barely responsive to simple commands. CT scan of the head was grossly negative for any acute evidence of bleeding. Patient's sugar was normal there is no evidence for hypoglycemia. Patient's urine showed no signs of infection. Has no fever no chills. There is no evidence for sepsis patient's symptoms more likely consistent with syncope as patient became more awake alert oriented now is answering question. The NIH stroke scale is 0 at this point. She has a history of being on Xarelto. My interpretation of her EKG showed a sinus rhythm heart rate is 80 PADMINI is normal QRS is normal QTC is [address] segment elevation. Patient's COVID test was also negative. Her chest x-ray showed no focal infiltrate. Differential Diagnosis Differential Diagnoses: The differential diagnosis associated with the presentation includes Syncope, CVA, infection Consult Healthcare Provider Management of the patient was discussed with: Hospitalist Lab Data [facility] Lab Attestation statement: I reviewed the patient's lab results. 04/26/23 18:13 04/26/23 18:13 Labs: Lab Results 04/26/23 04/26/23 04/26/23 Range/Units 17:36 17:36 18:13 WBC 3.8 L (4.8-10.8) X10*3/uL RBC 3.07 L (4.20-5.50) X10*6/uL Hgb 10.5 L (12.0-16.0) g/dl Hct 32.2 L (37.0-47.0) % MCV 104.9 H (80.0-98.0) fL MCH 34.2 H (27.0-33.0) pg MCHC 32.6 (31.0-35.0) g/dl RDW 13.4 (11.0-16.0) % Plt Count 117 L (160-400) X10*3/uL MPV 9.9 (9.4-12.3) fL Immature Gran % (Auto) 0.3 (0.0-0.4) % Neut % (Auto) 44.6 L (45-73) % Lymph % (Auto) 32.9 (20-40) % [place] % (Auto) 19.5 H (2-11) % Eos % (Auto) 1.6 (0-4) % Baso % (Auto) 1.1 (0-2) % Lymph # (Auto) 1.3 (1.2-4.9) X10*3/uL [place] # (Auto) 0.7 (0.1-1.2) X10*3/uL Eos # (Auto) 0.1 (0.0-0.4) X10*3/uL Baso # (Auto) 0.0 (0.0-0.2) X10*3/uL Abs Immat Gran (auto) 0.01 (0.00-0.03) X10*3/uL Absolute Neuts (auto) 1.7 L (2.0-8.3) x10*3/uL Absolute Nucleated RBC 0.000 (0.0-0.012) X10*3/uL Nucleated RBC % (auto) 0.0 (0.0-0.2) /100WBC Sodium (135-145) mmol/L Potassium (3.3-5.1) mmol/L Chloride (96-108) mmol/L Carbon Dioxide (22-29) mmol/L Anion Gap (12-20) BUN (9-16) mg/dL Creatinine (0.5-1.4) mg/dL Estim Creat Clear Calc Estimated GFR Random Glucose (60-115) mg/dL Lactic Acid (0.5-2.0) mmol/L Calcium (8.4-10.2) mg/dL Total Bilirubin (0.0-1.0) mg/dL Direct Bilirubin (0.0-0.5) mg/dL AST (5-31) U/L ALT (0-31) U/L Alkaline Phosphatase (39-117) U/L Total Protein (6.5-8.0) g/dL Albumin (3.5-5.0) g/dL Lipase (8-78) U/L Urine Color Yellow Urine Appearance Clear Urine pH 6.0 (5.0-9.0) Ur Specific [place] 1.010 (1.005-1.025) Urine Protein Negative (Neg-Trace) mg/dL Urine Glucose (UA) Negative (Negative) mg/dL Urine Ketones Negative (Negative) mg/dL Urine Blood Negative (Negative) Urine Nitrite Negative (Negative) Ur Leukocyte Esterase Trace H (Negative) Urine RBC 0-2 (0-2) /HPF Urine WBC 0-5 (0-5) /HPF Ur Squamous Epith Cells 6-10 (0-2) /HPF Urine Bacteria None Seen (None Seen) Hyaline Casts 0-2 (0-2) /LPF COVID-19 (FRITZ) Negative (Negative) COVID-19 Clin Com See Note 04/26/23 04/26/23 Range/Units 18:13 18:13 WBC (4.8-10.8) X10*3/uL RBC (4.20-5.50) X10*6/uL Hgb (12.0-16.0) g/dl Hct (37.0-47.0) % MCV (80.0-98.0) fL MCH (27.0-33.0) pg MCHC (31.0-35.0) g/dl RDW (11.0-16.0) % Plt Count (160-400) X10*3/uL MPV (9.4-12.3) fL Immature Gran % (Auto) (0.0-0.4) % Neut % (Auto) (45-73) % Lymph % (Auto) (20-40) % [place] % (Auto) (2-11) % Eos % (Auto) (0-4) % Baso % (Auto) (0-2) % Lymph # (Auto) (1.2-4.9) X10*3/uL [place] # (Auto) (0.1-1.2) X10*3/uL Eos # (Auto) (0.0-0.4) X10*3/uL Baso # (Auto) (0.0-0.2) X10*3/uL Abs Immat Gran (auto) (0.00-0.03) X10*3/uL Absolute Neuts (auto) (2.0-8.3) x10*3/uL Absolute Nucleated RBC (0.0-0.012) X10*3/uL Nucleated RBC % (auto) (0.0-0.2) /100WBC Sodium 143 (135-145) mmol/L Potassium 3.9 (3.3-5.1) mmol/L Chloride 111 H (96-108) mmol/L Carbon Dioxide 21 L (22-29) mmol/L Anion Gap 15 (12-20) BUN 10 (9-16) mg/dL Creatinine 0.87 (0.5-1.4) mg/dL Estim Creat Clear Calc 46.3 Estimated GFR > 60 Random Glucose 89 (60-115) mg/dL Lactic Acid 2.2 H* (0.5-2.0) mmol/L Calcium 8.5 D (8.4-10.2) mg/dL Total Bilirubin 0.6 (0.0-1.0) mg/dL Direct Bilirubin 0.2 (0.0-0.5) mg/dL AST 55 H (5-31) U/L ALT 24 (0-31) U/L Alkaline Phosphatase 86 (39-117) U/L Total Protein 6.1 L (6.5-8.0) g/dL Albumin 3.2 L (3.5-5.0) g/dL Lipase 17 (8-78) U/L Urine Color Urine Appearance Urine pH (5.0-9.0) Ur Specific [place] (1.005-1.025) Urine Protein (Neg-Trace) mg/dL Urine Glucose (UA) (Negative) mg/dL Urine Ketones (Negative) mg/dL Urine Blood (Negative) Urine Nitrite (Negative) Ur Leukocyte Esterase (Negative) Urine RBC (0-2) /HPF Urine WBC (0-5) /HPF Ur Squamous Epith Cells (0-2) /HPF Urine Bacteria (None Seen) Hyaline Casts (0-2) /LPF COVID-19 (FRITZ) (Negative) COVID-19 Clin Com Independent Interpretation I performed an independent interpretation of an: EKG, Plain X-Ray and CT Scan Interpretation: Sinus heart rate is 80. HI QRS is normal. QTC is 500. No acute ST segment elevation noted. Chest x-ray was grossly negative. CT scan of the head was grossly negative for any evidence of bleeding. Radiology Impression Discussion of test interpretation with radiology: I have reviewed the radiologist's reading. Independent Historian Clinical information obtained from an independent historian. History obtained from or confirmed by: Spouse and EMS Additional history was obtained through the spouse External Record Review External record reviewed: Inpatient record Chronic Conditions Patient?s care impacted by: Hypertension Discharge Plan Discharge Clinical Impression: Syncope Patient Disposition: Admitted As Inpatient Prescriptions: No Action omeprazole 20 mg capsule,delayed release(DR/EC) 20 mg PO DAILY Xarelto 20 mg tablet 20 mg PO DAILY Qty: 90 3RF Rx Instructions: must administer with evening meal folic acid 1 mg Tablet 1 mg PO DAILY Qty: 90 3RF estradiol 0.01 % (0.1 mg/gram) cream See Rx Instructions .Route 3XW 30 Days Qty: 42.5 2RF Rx Instructions: pea-sized to urethra 3 times a week gabapentin 300 mg capsule 300 mg PO DAILY 30 Days Qty: 90 3RF metoprolol tartrate 25 mg tablet 12.5 mg PO BID 90 Days Qty: 90 3RF magnesium oxide 400 mg magnesium tablet 400 mg PO BID Qty: 180 2RF quetiapine [Seroquel] 25 mg Tablet 25 mg PO BID lidocaine 5 % adhesive patch,medicated 2 patch topical DAILY Protocol: Apply to: Apply to: BACKS OF KNEES Rx Instructions: APPLY TO BACKS OF KNEES ertapenem 1 gram recon soln 1 g IV DAILY Qty: 7 0RF (DME) right mastectomy bra See Rx Instructions .Route .MEDSUPPLY Qty: 2 0RF Rx Instructions: As directed methenamine hippurate 1 gram tablet 1 g PO BID 30 Days Qty: 60 11RF
--- NOTE | 2023-04-26 18:27 | PC.NURSE ---
pt ambulated to and from bathroom w steady gait.
--- NOTE | 2023-04-26 19:06 | PC.NURSE ---
IV line in R hand flushed for patency VSS pt states having recent fall and just got back from the restroom with one assist unsteady gait
[2023-04-26 19:10] VITALS: BP 134/64; PULSE 77; RESP 13; TEMP 36.4; O2SAT 97
--- NOTE | 2023-04-26 19:11 | PC.NURSE ---
pt resting quietly while watching tv at bedside no apparent distress
--- NOTE | 2023-04-26 19:15 | PC.NURSE ---
swallow test complete no deficits observed pt denies any difficulty swallowing no respiratory distress provider notified pt requesting food/refreshment
--- NOTE | 2023-04-26 20:22 | PM.IMHP ---
History of Present Illness Date of Service: 04/26/23 <MIRTA Graham - Last Filed: 04/26/23 20:42> Attending physician on admission: Jonathan Montoya <MIRTA Graham - Last Filed: 04/26/23 20:42> Chief Complaint: ams <MIRTA Graham - Last Filed: 04/26/23 20:42> 82-year-old female with pertinent history of mood disorder, history of PE on Xarelto, dementia, gastroesophageal reflux disease, peripheral neuropathy, recurrent UTI, history of breast cancer (2006) in remission who was brought to the emergency department for evaluation of confusion. The patient is alert and oriented x 4 and is accompanied by her . Per their report, the patient fell asleep on the couch (which is not atypical for her) at noon and her left to run an errand. Upon returning at 4pm she was still asleep so he attended to arouse her. She did awaken but was drowsy and confused. He asked her how she felt and she stated terrible requesting to go to the [facility] so he called EMS. The patient has had similar episodes of encephalopathy in the past. She was able to ambulate and she and her deny any focal weakness however, EMS reported observing possible left sided weakness. She states she did have a slight headache in the morning which responded to tylenol without recurrence. No visual changes, facial droop, slurred speech, focal paresthesias (has peripheral neuropathy at baseline BLE), lightheadedness, syncope, palpitations, sob, or chest pain. Denies fall today but states did fall in the tub 10 days ago with left sided rib pain that persists. Per ED report, on arrival patient was confused, but is back to baseline mentation per her . On arrival, vital signs stable. She has a mild leukopenia of 3.8. Mild macrocytic anemia with H/H 10.5/32.2%, MCV 104.9 a slightly below baseline. Renal function baseline, electrolyte levels largely within normal limits. Lactic acid 2.2. Urinalysis unremarkable except trace leukocytes. Negative for COVID-19. Chest x-ray is negative for any acute abnormality of the chest but does show chronic interstitial lung disease. Head CT is negative for any acute intracranial abnormality but does show stable mild volume loss with disproportionate atrophy of the lateral hemisphere and presumed chronic microangiopathy. EKG showed normal sinus rhythm, rate 80 with prolonged QTC of 500, no ST/T-wave abnormality. <MIRTA Graham - Last Filed: 04/26/23 20:42> Review of Systems Review of Systems: General: No fevers, malaise, unintentional weight loss HEENT: No blurred vision, diplopia. No sore throat, nasal congestion, rhinorrhea, sinus pain, ear pain Cardiovascular: No chest pain, palpitations, or leg edema Respiratory: No shortness of breath, wheezing, cough GI: No abdominal pain, nausea, vomiting, diarrhea, constipation, melena, hematochezia : No dysuria, hematuria, increased urinary frequency, decreased urinary output MSK: No myalgia, back pain Neuro: No headaches, weakness, paresthesias. +ams Skin: No rashes or lesions <MIRTA Graham - Last Filed: 04/26/23 20:42> [facility] Medical History: Medical History B12 deficiency Breast cancer Fatty liver, alcoholic GERD (gastroesophageal reflux disease) History of alcohol use History of pulmonary embolism History of right breast cancer HTN (hypertension) Hx of deep venous thrombosis Hx of hypercalcemia Hx of metabolic acidosis Hx of tuberculosis Hypomagnesemia Impaired fasting glucose Irritable bowel syndrome Osteoarthritis of left knee Osteoporosis Peripheral neuropathy Pernicious anemia Thrombocytopenia TIA (transient ischemic attack) <MIRTA Graham - Last Filed: 04/26/23 20:42> Family History: Family History Father No problems noted. Mother No problems noted. Other No family history of cancer <MIRTA Graham - Last Filed: 04/26/23 20:42> Surgical History: Surgical History H/O right mastectomy History of appendectomy History of arthroplasty of left knee History of cataract surgery History of cystoscopy History of esophagogastroduodenoscopy (EGD) History of evacuation of hematoma History of knee replacement procedure of right knee History of left knee surgery History of lumpectomy of right breast History of tonsillectomy Hx of adenoidectomy Hx of colonoscopy S/P SASHA-BSO (total abdominal hysterectomy and bilateral salpingo-oophorectomy) <MIRTA Graham - Last Filed: 04/26/23 20:42> Social History: Social History Household Members: Spouse Housing: House Are you a primary acute care surgeon to a significant other at home: No Do you presently have visiting nurse or other home services: No Alcohol intake: never Patient Tobacco Use Status: Never used Tobacco Smoked in Last 30 Days: No e-Cigarette/Vaping Use: Never Used Second Hand Smoke Exposure: No Use of substances other than those prescribed or required for medical reasons: No Advance Directives: Yes Advance Directives on File: Yes Advance Directives Date on File: 12/24/21 service: No Current occupational status: retired Cognitive needs: No Hearing needs: No Vision needs: Yes <MIRTA Graham - Last Filed: 04/26/23 20:42> Meds Allergies/Adverse reactions: Allergies Allergy/AdvReac Type Severity Reaction Status Date / Time sulfamethoxazole Allergy Severe Itching Verified 04/22/23 14:49 [From Bactrim] trimethoprim [From Bactrim] Allergy Severe Itching Verified 04/22/23 14:49 cortisone [Cortisone] Allergy Mild PT STATES, Verified 04/22/23 14:49 hx TB IT COULD AFFECT CRYSTALS IN LUNG prochlorperazine Allergy Mild LEG Verified 04/22/23 14:49 [From Compazine] NUMBNESS hydrochlorothiazide Allergy Unknown RASH Verified 04/22/23 14:49 levofloxacin [Levaquin] Allergy Unknown Wakefulness, Verified 04/22/23 14:49 nausea, shaking Sulfa (Sulfonamide AdvReac Intermediate rash Verified 04/22/23 14:49 Antibiotics) codeine AdvReac Unknown NAUSEA/VOMI Verified 04/22/23 14:49 TING chocolate Allergy Unknown severe Uncoded 03/08/23 13:58 headaches/vomiting <MIRTA Graham - Last Filed: 04/26/23 20:42> Active Medications: Current Medications Acetaminophen (Acetaminophen 325 Mg Tablet) 650 mg PO Q6H PRN PRN Reason: Pain, Mild (Pain Scale 1-3) Docusate Sodium (Docusate Sodium 100 Mg Capsule) 100 mg PO DAILY PRN PRN Reason: Constipation Sodium Chloride (Ns) 1,000 mls @ 999 mls/hr IV .Q1H1M ADAM Stop: 04/26/23 20:45 Last Admin: 04/26/23 20:07 Dose: 999 mls/hr Ondansetron HCl (Ondansetron Hcl 4 Mg/2 Ml Vial) 4 mg IVPUSH Q8H PRN PRN Reason: Nausea and Vomiting Pharmacy Consult (Consult Rx Perform Med Rec) 1 each MISCELLANE ONCE PRN PRN Reason: Consult order Sodium Chloride (0.9 % Sodium Chloride Flush 3 Ml Syringe) 3 ml IVFLUSH QSHIFT [facility] <MIRTA Graham - Last Filed: 04/26/23 20:42> Home medications: Home Medications Medication Instructions Recorded Confirmed Last Taken Type omeprazole 20 mg capsule,delayed 20 mg PO DAILY 01/08/22 04/11/23 04/11/23 History release lidocaine 5 % topical patch 2 patch topical DAILY pain 04/11/23 04/11/23 Unknown History quetiapine 25 mg tablet (Seroquel) 25 mg PO BID 04/11/23 04/11/23 04/11/23 History <MIRTA Graham - Last Filed: 04/26/23 20:42> Physical Exam Vital Signs and Narrative: Vital Signs: Last Vital Signs Temp 97.6 F 04/26/23 19:10 Pulse 77 04/26/23 19:10 Resp 13 04/26/23 19:10 BP 134/64 04/26/23 19:10 Pulse Ox 97 04/26/23 19:10 O2 Del Method Room Air 04/26/23 19:10 BMI result Body Mass Index 23.1 <MIRTA Graham - Last Filed: 04/26/23 20:42> Results Labs CBC and Chem 7: 04/26/23 18:13 04/26/23 18:13 <MIRTA Graham - Last Filed: 04/26/23 20:42> Labs: Laboratory Results - last 24 hr 04/26/23 04/26/23 04/26/23 17:36 17:36 18:13 MCV 104.9 H MCH 34.2 H MCHC 32.6 RDW 13.4 Plt Count 117 L MPV 9.9 Immature Gran % (Auto) 0.3 Neut % (Auto) 44.6 L Lymph % (Auto) 32.9 [place] % (Auto) 19.5 H Eos % (Auto) 1.6 Baso % (Auto) 1.1 Lymph # (Auto) 1.3 [place] # (Auto) 0.7 Eos # (Auto) 0.1 Baso # (Auto) 0.0 Abs Immat Gran (auto) 0.01 Absolute Neuts (auto) 1.7 L Absolute Nucleated RBC 0.000 Nucleated RBC % (auto) 0.0 Anion Gap Estim Creat Clear Calc Estimated GFR Random Glucose Lactic Acid Calcium Total Bilirubin Direct Bilirubin AST ALT Alkaline Phosphatase Total Protein Albumin Lipase Urine Color Yellow Urine Appearance Clear Urine pH 6.0 Ur Specific [place] 1.010 Urine Protein Negative Urine Glucose (UA) Negative Urine Ketones Negative Urine Blood Negative Urine Nitrite Negative Ur Leukocyte Esterase Trace H Urine RBC 0-2 Urine WBC 0-5 Ur Squamous Epith Cells 6-10 Urine Bacteria None Seen Hyaline Casts 0-2 COVID-19 (FRITZ) Negative COVID-19 Clin Com See Note 04/26/23 04/26/23 18:13 18:13 MCV MCH MCHC RDW Plt Count MPV Immature Gran % (Auto) Neut % (Auto) Lymph % (Auto) [place] % (Auto) Eos % (Auto) Baso % (Auto) Lymph # (Auto) [place] # (Auto) Eos # (Auto) Baso # (Auto) Abs Immat Gran (auto) Absolute Neuts (auto) Absolute Nucleated RBC Nucleated RBC % (auto) Anion Gap 15 Estim Creat Clear Calc 46.3 Estimated GFR > 60 Random Glucose 89 Lactic Acid 2.2 H* Calcium 8.5 D Total Bilirubin 0.6 Direct Bilirubin 0.2 AST 55 H ALT 24 Alkaline Phosphatase 86 Total Protein 6.1 L Albumin 3.2 L Lipase 17 Urine Color Urine Appearance Urine pH Ur Specific [place] Urine Protein Urine Glucose (UA) Urine Ketones Urine Blood Urine Nitrite Ur Leukocyte Esterase Urine RBC Urine WBC Ur Squamous Epith Cells Urine Bacteria Hyaline Casts COVID-19 (FRITZ) COVID-19 Clin Com <MIRTA Graham - Last Filed: 04/26/23 20:42> Imaging Radiologist's Impressions: Impressions Head CT 04/26/23 16:13 IMPRESSION: No new acute intracranial abnormality. Stable mild volume loss with disproportionate atrophy of the lateral hemisphere and presumed mild chronic microangiopathy. Findings to be called to the ordering clinician by a [facility] [employer]. Chest X-Ray 04/26/23 16:53 IMPRESSION: 1. No acute abnormality of chest. 2. Chronic interstitial lung disease. <MIRTA Graham - Last Filed: 04/26/23 20:42> Assessment and Plan (1) Acute metabolic encephalopathy: Status: Resolved <MIRTA Graham - Last Filed: 04/26/23 20:42> 82-year-old female with pertinent history of mood disorder, history of PE on Xarelto, dementia, gastroesophageal reflux disease, peripheral neuropathy, recurrent UTI, history of breast cancer (2006) in remission to be observed for acute metabolic encephalopathy with concern for new seizure activity. #Acute metabolic encephalopathy- now resolved on admission -Initially concern for syncope, but after discussion with patient/ seems less likely. I also have low suspicion for stroke given absence of focal neuro deficits noted in ED and on my exam, differential favoring possible seizure activity vs worsening dementia -Monitor mentation -seizure precautions -MRI brain ordered to evaluate for structural abnormality -EEG ordered -Neuro consult -Monitor on telemetry # hypertension-reasonably controlled -continue metoprolol # history PE -continue Xarelto # mood disorder/dementia -QTC prolonged at 500, similar to prior EKGs. Hold Seroquel at this time -consider Psychiatry consult # GERD -continue PPI # recurrent UTI -recent admission with ESBL E coli, completed 7 day course IV ertapenem outpatient on 04/23 -continue methenamine # peripheral polyneuropathy -continue gabapentin, lidocaine patches p.r.n. # chronic macrocytic anemia -H/H above transfusion threshold -continue folic acid supplement DVT prophylaxis-on Xarelto Full code <MIRTA Graham - Last Filed: 04/26/23 20:42> 82-year-old female with pertinent history of mood disorder, history of PE on Xarelto, dementia, gastroesophageal reflux disease, peripheral neuropathy, recurrent UTI, history of breast cancer (2006) in remission to be observed for acute metabolic encephalopathy with concern for new seizure activity. #Transient confusion -Initially concern for syncope, but after discussion with patient/ seems less likely. I also have low suspicion for stroke given absence of focal neuro deficits noted in ED and on my exam, differential favoring possible seizure activity -Monitor mentation -seizure precautions -MRI brain ordered to evaluate for structural abnormality -EEG ordered -Neuro consult -Monitor on telemetry # hypertension-reasonably controlled -continue metoprolol # history PE -continue Xarelto # mood disorder/dementia -QTC prolonged at 500, similar to prior EKGs. Hold Seroquel at this time -consider Psychiatry consult and initiation of b chavez # GERD -continue PPI # recurrent UTI -recent admission with ESBL E coli, completed 7 day course IV ertapenem outpatient on 04/23 -continue methenamine # peripheral polyneuropathy -continue gabapentin, lidocaine patches p.r.n. # chronic macrocytic anemia -H/H above transfusion threshold -continue folic acid supplement DVT prophylaxis-on Xarelto Full code <Jonathan Montoya MD - Last Filed: 04/26/23 20:55> Time Spent With Patient Time: Total time managing care of this patient today ____ minutes. <MIRTA Graham - Last Filed: 04/26/23 20:42> Quality Stroke Does the patient have a stroke diagnosis?: No <MIRTA Graham - Last Filed: 04/26/23 20:42> VTE Prior VTE?: Yes <MIRTA Graham - Last Filed: 04/26/23 20:42> VTE Risk Level:: Medical - moderate - high <MIRTA Graham - Last Filed: 04/26/23 20:42> VTE Device Contraindication: Treatment Not Indicated <MIRTA Graham - Last Filed: 04/26/23 20:42> VTE Drug Contraindication: N/A - Med Ordered <MIRTA Graham - Last Filed: 04/26/23 20:42>
--- NOTE | 2023-04-26 21:05 | PC.NURSE ---
Addendum entered by Cynthia Page RN 04/26/23 21:18: Attempted to call report again at 21:18. No answer from the RN.Left my name an extension for a call back. Original Note: Attempted to call report at 21:05. No answer from RN. Will try again.
[2023-04-26 21:54] VITALS: BP 149/81; PULSE 110; RESP 20; TEMP 36.1; O2SAT 99
--- NOTE | 2023-04-26 22:02 | PHA.MEDREC ---
Pharmacy Consult ? Medication Reconciliation Pharmacy has completed the medication reconciliation. Patient last admitted in March. Med rec completed per claim history and previous discharge instructions.
[2023-04-26 23:49] VITALS: BP 148/72; PULSE 107; RESP 18; TEMP 36.8; O2SAT 95
[2023-04-27 03:32] VITALS: BP 135/72; PULSE 88; RESP 20; TEMP 36.8; O2SAT 94
[2023-04-27 07:15] VITALS: BP 150/80; PULSE 88; RESP 20; TEMP 36.7; O2SAT 97
--- NOTE | 2023-04-27 08:36 | PM.NEUROCN ---
History of Present Illness Data of Consult Service Date: 04/27/23 Primary Care Provider: Vinicius Burnett MD [facility] Reason for consult: Confusion 82 years old woman who recently was admitted in hospital with UTI was noted to be either confused or unresponsive at home and was brought to hospital. There was no witnessing of any convulsion. She did not have any recollection and did not know about this event. Question of seizure was raised though she was not known to have previous history of seizure disorder. Her workup did not reveal any sign of UTI or infection at this time. Review of Systems Review of Systems: She was recently treated for UTI but at this time she was not having any cold or flu. [facility] Past Medical History Medical History B12 deficiency Breast cancer Fatty liver, alcoholic GERD (gastroesophageal reflux disease) History of alcohol use History of pulmonary embolism History of right breast cancer HTN (hypertension) Hx of deep venous thrombosis Hx of hypercalcemia Hx of metabolic acidosis Hx of tuberculosis Hypomagnesemia Impaired fasting glucose Irritable bowel syndrome Osteoarthritis of left knee Osteoporosis Peripheral neuropathy Pernicious anemia Thrombocytopenia TIA (transient ischemic attack) Family History Family History Father No problems noted. Mother No problems noted. Other No family history of cancer Surgical History Surgical History H/O right mastectomy History of appendectomy History of arthroplasty of left knee History of cataract surgery History of cystoscopy History of esophagogastroduodenoscopy (EGD) History of evacuation of hematoma History of knee replacement procedure of right knee History of left knee surgery History of lumpectomy of right breast History of tonsillectomy Hx of adenoidectomy Hx of colonoscopy S/P SASHA-BSO (total abdominal hysterectomy and bilateral salpingo-oophorectomy) Social History Social History Household Members: Spouse Housing: House Are you a primary personal care service provider to a significant other at home: No Do you presently have visiting nurse or other home services: No Alcohol intake: never Patient Tobacco Use Status: Never used Tobacco e-Cigarette/Vaping Use: Never Used Second Hand Smoke Exposure: No Advance Directives Date on File: 12/24/21 service: No Current occupational status: retired Cognitive needs: No Hearing needs: No Vision needs: Yes Meds Allergies Allergy/AdvReac Type Severity Reaction Status Date / Time sulfamethoxazole Allergy Severe Itching Verified 04/22/23 14:49 [From Bactrim] trimethoprim [From Bactrim] Allergy Severe Itching Verified 04/22/23 14:49 cortisone [Cortisone] Allergy Mild PT STATES, Verified 04/22/23 14:49 hx TB IT COULD AFFECT CRYSTALS IN LUNG prochlorperazine Allergy Mild LEG Verified 04/22/23 14:49 [From Compazine] NUMBNESS hydrochlorothiazide Allergy Unknown RASH Verified 04/22/23 14:49 levofloxacin [Levaquin] Allergy Unknown Wakefulness, Verified 04/22/23 14:49 nausea, shaking Sulfa (Sulfonamide AdvReac Intermediate rash Verified 04/22/23 14:49 Antibiotics) codeine AdvReac Unknown NAUSEA/VOMI Verified 04/22/23 14:49 TING chocolate Allergy Unknown severe Uncoded 03/08/23 13:58 headaches/vomiting Active Medications: Current Medications Acetaminophen (Acetaminophen 325 Mg Tablet) 650 mg PO Q6H PRN PRN Reason: Pain, Mild (Pain Scale 1-3) Docusate Sodium (Docusate Sodium 100 Mg Capsule) 100 mg PO DAILY PRN PRN Reason: Constipation Folic Acid (Folic Acid 1 Mg Tablet) 1 mg PO DAILY [facility] Last Admin: 04/27/23 07:50 Dose: 1 mg Magnesium Oxide (Magnesium Oxide 400 Mg Tablet) 400 mg PO BID [facility] Last Admin: 04/27/23 07:50 Dose: 400 mg Metoprolol Tartrate (Metoprolol Tartrate 12.5 Mg Halftab) 12.5 mg PO BID [facility]; Protocol Last Admin: 04/27/23 07:50 Dose: 12.5 mg Omeprazole (Omeprazole 20 Mg Capsule.Dr) 20 mg PO DAILY@0630 [facility] Ondansetron HCl (Ondansetron Hcl 4 Mg/2 Ml Vial) 4 mg IVPUSH Q8H PRN PRN Reason: Nausea and Vomiting Pharmacy Consult (Consult Rx Perform Med Rec) 1 each MISCELLANE ONCE PRN PRN Reason: Consult order Rivaroxaban (Rivaroxaban 20 Mg Tablet) 20 mg PO DAILY@1700 [facility] Sodium Chloride (0.9 % Sodium Chloride Flush 3 Ml Syringe) 3 ml IVFLUSH QSHIFT [facility] Last Admin: 04/27/23 07:18 Dose: 3 ml Home Medications Medication Instructions Recorded Confirmed Last Taken Type omeprazole 20 mg capsule,delayed 20 mg PO DAILY@0630 01/08/22 04/26/23 04/11/23 History release lidocaine 5 % topical patch 2 patch topical DAILY pain 04/11/23 04/26/23 Unknown History quetiapine 25 mg tablet (Seroquel) 25 mg PO BID 04/11/23 04/26/23 04/11/23 History rivaroxaban 20 mg tablet (Xarelto) 20 mg PO DAILY@1700 04/26/23 04/26/23 Unknown History Physical Exam Vital Signs: Vital Signs: Last Vital Signs Temp 98.1 F 04/27/23 07:15 Pulse 88 04/27/23 07:15 Resp 20 04/27/23 07:15 BP 150/80 H 04/27/23 07:15 Pulse Ox 97 04/27/23 07:15 O2 Del Method Room Air 04/27/23 07:15 BMI result Body Mass Index 23.1 Neuro: Other: She is alert and awake with normal spontaneity of speech fluency comprehension and somewhat flat affect. She is having word-finding difficulties and remembering past events. She had seen me few years ago and did remember my name but could not tell me why she saw me. Face was symmetrical. Visual hurst are full. There was no obvious focal arm or leg weakness. Deep tendon reflexes are absent with flexor plantars. Results Labs 04/27/23 06:30 04/27/23 06:30 Labs: Short CBC 04/26/23 04/27/23 Range/Units 18:13 06:30 WBC 3.8 L 3.6 L (4.8-10.8) X10*3/uL Hgb 10.5 L 10.3 L (12.0-16.0) g/dl Hct 32.2 L 30.9 L (37.0-47.0) % Plt Count 117 L 121 L (160-400) X10*3/uL BMP 04/26/23 04/27/23 18:13 06:30 Sodium 143 143 Potassium 3.9 3.7 Chloride 111 H 111 H Carbon Dioxide 21 L 24 BUN 10 10 Creatinine 0.87 0.90 Calcium 8.5 D 8.3 L Liver Function 04/26/23 Range/Units 18:13 Total Bilirubin 0.6 (0.0-1.0) mg/dL Direct Bilirubin 0.2 (0.0-0.5) mg/dL AST 55 H (5-31) U/L ALT 24 (0-31) U/L Alkaline Phosphatase 86 (39-117) U/L Albumin 3.2 L (3.5-5.0) g/dL Urine 04/26/23 Range/Units 17:36 Urine Color Yellow Urine Appearance Clear Urine pH 6.0 (5.0-9.0) Ur Specific [place] 1.010 (1.005-1.025) Urine Protein Negative (Neg-Trace) mg/dL Urine Glucose (UA) Negative (Negative) mg/dL Head CT revealed moderately severe frontoparietal temporal atrophy. Assessment and Plan (1) Syncope: Status: Acute 82 years old woman with head CT suggesting moderate amount of at Alzheimer-type dementia, recent bout of UTI though at this time she did not seem to be infected, was noted to be not responding or confused at home and was brought to hospital. This episode might be related to dementia and sleeping, as patients with dementia sometime do not sleep for a while and then may go into deep sleep and difficult to arose. At the same time, metabolic toxic encephalopathy is a possibility but that does not seem to be the case. Seizure disorder is another possibility, not uncommon in this type of patient. I recommend an EEG but otherwise not starting any antiepileptic at this time. (2) Alzheimer's dementia: Status: Acute Time Spent With Patient Time: Total time managing care of this patient today ____ minutes. Procedures Date of Service Date of Service: 04/27/23
--- NOTE | 2023-04-27 09:46 | MHC.CM.PN ---
BALA 04/27/23 DELIVERED TO BEDSIDE, CM MET W/PT WHO REPORTS SHE LIVES W/, IS INDEP W/ALL CARE, DENIES USE OF DME/SERVICES, PT DENIES NEED FOR SERVICES AND WANTS TO D/C TODAY. PT REQUESTING CM CONTACT PT'S W/ROOM NUMBER, CM ATTEMPTED TO CALL AND DETAILED MESSAGE LEFT. PCP VERIFIES JEOVANY WALTON, COVID VACC X5 AND HCP IS KAROL [phone] AND ON FILE FROM PREVIOUS ADMIT.
--- NOTE | 2023-04-27 11:10 | PM.DS ---
DS: Providers Provider Date of Service: 04/27/23 Date of admission: 04/26/23 20:16 Primary care physician: Vinicius Burnett MD Consults: 04/26/23 20:20 Consult to Neurology Routine Consulting Provider: [facility] Reason for consultation: encephalopathy, ?seizure DS: Diagnosis Discharge Diagnosis (1) Syncope: Status: Acute (2) Alzheimer's dementia: Status: Acute DS: Summary Hospital Course Hospital Course: from initial hpi: 82-year-old female with pertinent history of mood disorder, history of PE on Xarelto, dementia, gastroesophageal reflux disease, peripheral neuropathy, recurrent UTI, history of breast cancer (2006) in remission who was brought to the emergency department for evaluation of confusion. The patient is alert and oriented x 4 and is accompanied by her . Per their report, the patient fell asleep on the couch (which is not atypical for her) at noon and her left to run an errand. Upon returning at 4pm she was still asleep so he attended to arouse her. She did awaken but was drowsy and confused. He asked her how she felt and she stated terrible [facility] so he [facility]. The patient has had similar episodes of encephalopathy in the past. She was able to ambulate and she and her deny any focal weakness however, EMS reported observing possible left sided weakness. She states she did have a slight headache in the morning which responded to tylenol without recurrence. No visual changes, facial droop, slurred speech, focal paresthesias (has peripheral neuropathy at baseline BLE), lightheadedness, syncope, palpitations, sob, or chest pain. Denies fall today but states did fall in the tub 10 days ago with left sided rib pain that persists. Per ED report, on arrival patient was confused, but is back to baseline mentation per her . On arrival, vital signs stable.? She has a mild leukopenia of 3.8.? Mild macrocytic anemia with H/H 10.5/32.2%, MCV 104.9 a slightly below baseline.? Renal function baseline, electrolyte levels largely within normal limits.? Lactic acid 2.2.? Urinalysis unremarkable except trace leukocytes.? Negative for COVID-19.? Chest x-ray is negative for any acute abnormality of the chest but does show chronic interstitial lung disease.? Head CT is negative for any acute intracranial abnormality but does show stable mild volume loss with disproportionate atrophy of the lateral hemisphere and presumed chronic microangiopathy.? EKG showed normal sinus rhythm, rate 80 with prolonged QTC of 500, no ST/T-wave abnormality. hospital course: Patient was admitted for transient confusion, difficult to awake. This was similar to previous presentations. Patient reports several days of poor sleep. Likely this is related to progression of Alzheimer's dementia and sleep disorder. She was seen by neurology recommended EEG which will be done as outpatient. MRI was unremarkable. Tele was unremarkable. Patient's back to baseline. For potential continue metoprolol. For history of pulmonary embolism should continue Xarelto. For mood disorder should continue on Seroquel. For GERD she will continue PPI. For peripheral polyneuropathy she will continue gabapentin. For chronic microcytic anemia should continue folic acid. Patient is back to baseline will be discharged home. Time Spent with Patient Time attestation: Total time managing care of this patient today ____ minutes. Discharge coordination time: Greater than 30 minutes Quality: Safe Use of Opioids Does Pt have an Active Cancer Diagnosis on the Problem List?: No Quality: Stroke Does the patient have a stroke diagnosis?: No Physical Exam Vital Signs: Vital Signs: Last Vital Signs Temp 98.1 F 04/27/23 07:15 Pulse 88 04/27/23 07:15 Resp 20 04/27/23 07:15 BP 150/80 H 04/27/23 07:15 Pulse Ox 97 04/27/23 07:15 O2 Del Method Room Air 04/27/23 07:15 BMI result Body Mass Index 23.1 Neuro: Other: She is alert and awake with normal spontaneity of speech fluency comprehension and somewhat flat affect. She is having word-finding difficulties and remembering past events. Face was symmetrical. Visual hurst are full. There was no obvious focal arm or leg weakness. Deep tendon reflexes are absent with flexor plantars. DS: Data Data Completed and Pending Completed studies during hospitalization [Text1]: Procedures Insertion of Infusion Device into Right Basilic Vein, Percutaneous Approach (04/11/23) Replacement of Left Knee Joint with Synthetic Substitute, Uncemented, Open Approach (10/06/20) Transfusion of Nonautologous Red Blood Cells into Peripheral Vein, Percutaneous Approach (10/06/20) Labs on day of discharge: Laboratory Results - last 24 hr 04/26/23 04/26/23 04/26/23 17:36 17:36 18:13 WBC 3.8 L RBC 3.07 L Hgb 10.5 L Hct 32.2 L MCV 104.9 H MCH 34.2 H MCHC 32.6 RDW 13.4 Plt Count 117 L MPV 9.9 Immature Gran % (Auto) 0.3 Neut % (Auto) 44.6 L Lymph % (Auto) 32.9 [place] % (Auto) 19.5 H Eos % (Auto) 1.6 Baso % (Auto) 1.1 Lymph # (Auto) 1.3 [place] # (Auto) 0.7 Eos # (Auto) 0.1 Baso # (Auto) 0.0 Abs Immat Gran (auto) 0.01 Absolute Neuts (auto) 1.7 L Absolute Nucleated RBC 0.000 Nucleated RBC % (auto) 0.0 Sodium Potassium Chloride Carbon Dioxide Anion Gap BUN Creatinine Estim Creat Clear Calc Estimated GFR Random Glucose Lactic Acid Lactic Acid F/U @ 2Hr Calcium Total Bilirubin Direct Bilirubin AST ALT Alkaline Phosphatase Total Protein Albumin Lipase Urine Color Yellow Urine Appearance Clear Urine pH 6.0 Ur Specific [place] 1.010 Urine Protein Negative Urine Glucose (UA) Negative Urine Ketones Negative Urine Blood Negative Urine Nitrite Negative Ur Leukocyte Esterase Trace H Urine RBC 0-2 Urine WBC 0-5 Ur Squamous Epith Cells 6-10 Urine Bacteria None Seen Hyaline Casts 0-2 COVID-19 ([facility]) Negative COVID-19 Clin Com See Note 04/26/23 04/26/23 04/26/23 18:13 18:13 21:09 WBC RBC Hgb Hct MCV MCH MCHC RDW Plt Count MPV Immature Gran % (Auto) Neut % (Auto) Lymph % (Auto) [place] % (Auto) Eos % (Auto) Baso % (Auto) Lymph # (Auto) [place] # (Auto) Eos # (Auto) Baso # (Auto) Abs Immat Gran (auto) Absolute Neuts (auto) Absolute Nucleated RBC Nucleated RBC % (auto) Sodium 143 Potassium 3.9 Chloride 111 H Carbon Dioxide 21 L Anion Gap 15 BUN 10 Creatinine 0.87 Estim Creat Clear Calc 46.3 Estimated GFR > 60 Random Glucose 89 Lactic Acid 2.2 H* Lactic Acid F/U @ 2Hr 1.7 Calcium 8.5 D Total Bilirubin 0.6 Direct Bilirubin 0.2 AST 55 H ALT 24 Alkaline Phosphatase 86 Total Protein 6.1 L Albumin 3.2 L Lipase 17 Urine Color Urine Appearance Urine pH Ur Specific [place] Urine Protein Urine Glucose (UA) Urine Ketones Urine Blood Urine Nitrite Ur Leukocyte Esterase Urine RBC Urine WBC Ur Squamous Epith Cells Urine Bacteria Hyaline Casts COVID-19 ([facility]) COVID-19 [employer] 04/27/23 04/27/23 06:30 06:30 WBC 3.6 L RBC 2.96 L Hgb 10.3 L Hct 30.9 L MCV 104.4 H MCH 34.8 H MCHC 33.3 RDW 13.5 Plt Count 121 L MPV 10.0 Immature Gran % (Auto) 0.3 Neut % (Auto) 59.2 Lymph % (Auto) 21.4 [place] % (Auto) 16.9 H Eos % (Auto) 1.4 Baso % (Auto) 0.8 Lymph # (Auto) 0.8 L [place] # (Auto) 0.6 Eos # (Auto) 0.1 Baso # (Auto) 0.0 Abs Immat Gran (auto) 0.01 Absolute Neuts (auto) 2.1 Absolute Nucleated RBC 0.000 Nucleated RBC % (auto) 0.0 Sodium 143 Potassium 3.7 Chloride 111 H Carbon Dioxide 24 Anion Gap 12 BUN 10 Creatinine 0.90 Estim Creat Clear Calc 44.8 Estimated GFR > 60 Random Glucose 95 Lactic Acid Lactic Acid F/U @ 2Hr Calcium 8.3 L Total Bilirubin Direct Bilirubin AST ALT Alkaline Phosphatase Total Protein Albumin Lipase Urine Color Urine Appearance Urine pH Ur Specific [place] Urine Protein Urine Glucose (UA) Urine Ketones Urine Blood Urine Nitrite Ur Leukocyte Esterase Urine RBC Urine WBC Ur Squamous Epith Cells Urine Bacteria Hyaline Casts COVID-19 ([facility]) COVID-19 Clin Com Discharge Plan Discharge Anticipated Discharge Date/Time: 04/27/23 11:08 Patient Disposition: Home, Self-Care Discharge Diagnosis: dementia Referrals: Jennifer Frey MD [Physician] - 1 Week Po,Vinicius Magdaleno MD [Primary Care Provider] - 1 Week Discharge Medications: Continued omeprazole 20 mg capsule,delayed release(DR/EC) 20 mg PO DAILY@0630 folic acid 1 mg Tablet 1 mg PO DAILY Qty: 90 3RF estradiol 0.01 % (0.1 mg/gram) cream See Rx Instructions .Route 3XW 30 Days Qty: 42.5 2RF Rx Instructions: pea-sized to urethra 3 times a week gabapentin 300 mg capsule 300 mg PO DAILY 30 Days Qty: 90 3RF metoprolol tartrate 25 mg tablet 12.5 mg PO BID 90 Days Qty: 90 3RF magnesium oxide 400 mg magnesium tablet 400 mg PO BID Qty: 180 2RF quetiapine [Seroquel] 25 mg Tablet 25 mg PO BID lidocaine 5 % adhesive patch,medicated 2 patch topical DAILY Protocol: Apply to: Apply to: BACKS OF KNEES Rx Instructions: APPLY TO BACKS OF KNEES Xarelto 20 mg tablet 20 mg PO DAILY@1700 Rx Instructions: must administer with evening meal (DME) right mastectomy bra See Rx Instructions .Route .MEDSUPPLY Qty: 2 0RF Rx Instructions: As directed methenamine hippurate 1 gram tablet 1 g PO BID 30 Days Qty: 60 11RF Discharge Orders: Discharge Order (Routine); Ordered 04/27/23 Ordered By: Kiran Tubbs Diet: Advance to usual diet Activity on Discharge: As tolerated Stand Alone Forms: Patient Portal Discharge page Other Ambulatory Orders: EEG electroencephalogram (Routine) Timeframe: 1 Week Facility: [facility] - Location: Radiology Ordered By: Kiran Tubbs Care Plan Goals: aoid ams Health Concerns: ams Plan of Treatment: sleep hygeine, eeg, neuro follow up Assessment: see above
== END 2023-04-27 12:23 | disposition home or self-care (01) ==
LOC: HO.ED 19:44 → HO.EDOVER 20:25 → HO.IMC 20:57
PROVIDERS: Admitting Provider Physician Assistant; Emergency Provider Emergency Medicine Emergency Medical Services; PCP Internal Medicine; Visit Provider Internal Medicine
DX: G30.9 Alzheimer's disease, unspecified (principal); F02.80 Dementia in other diseases classified elsewhere, unspecified severity, without behavioral disturbance, psychotic disturbance, mood disturbance, and anxiety; R55 Syncope and collapse; G93.41 Metabolic encephalopathy; I26.99 Other pulmonary embolism without acute cor pulmonale; I10 Essential (primary) hypertension; K21.9 Gastro-esophageal reflux disease without esophagitis; G62.9 Polyneuropathy, unspecified; D53.9 Nutritional anemia, unspecified; Z20.822 Contact with and (suspected) exposure to COVID-19; Z79.899 Other long term (current) drug therapy; Z85.3 Personal history of malignant neoplasm of breast; Z87.440 Personal history of urinary (tract) infections
CPT/HCPCS: 36415; 70450; 70551; 71045; 80048; 80076; 81001; 83605; 83690; 85025; 87040; 87635; 93005; 96360; 96361; 99222; 99285

== ENCOUNTER 2023-05-30 11:21 | Outpatient (AMB) | payer MEDICARE, SELFPAY ==
[2023-05-30 11:34] VITALS: BP 132/80; PULSE 99; O2SAT 99; BMI 22.3
--- NOTE | 2023-05-30 11:34 | A.OFFPC_ITS ---
Vital Signs 05/30/23 11:34 Height 5 ft 4 in Weight 130 lb BMI 22.3 BP 132/80 Blood Pressure Location Lt brachial Position Sitting Pulse 99 Pulse Source Pulse Oximeter Pulse Oximetry (%) 99 Oxygen Delivery Method Room Air Intake Visit Reasons: Peripheral vascular disease Intake Note: Went back on seroquel but doesnt know the dose. Wants to know why she was taken off gabapentin and seroquel. Allergies sulfamethoxazole [From Bactrim] Allergy (Severe, Verified 05/30/23 11:34) Itching trimethoprim [From Bactrim] Allergy (Severe, Verified 05/30/23 11:34) Itching cortisone [Cortisone] Allergy (Mild, Verified 05/30/23 11:34) PT STATES, hx TB IT COULD AFFECT CRYSTALS IN LUNG prochlorperazine [From Compazine] Allergy (Mild, Verified 05/30/23 11:34) LEG NUMBNESS hydrochlorothiazide Allergy (Unknown, Verified 05/30/23 11:34) RASH levofloxacin [Levaquin] Allergy (Unknown, Verified 05/30/23 11:34) Wakefulness, nausea, shaking Sulfa (Sulfonamide Antibiotics) Adverse Reaction (Intermediate, Verified 05/30/23 11:34) rash codeine Adverse Reaction (Unknown, Verified 05/30/23 11:34) NAUSEA/VOMITING chocolate Allergy (Unknown, Uncoded 05/30/23 11:34) severe headaches/vomiting Medication List - Last Reconciled 05/30/23 by Vinicius Burnett MD estradiol 0.01%(0.1mg/gram) pea-sized to urethra 3 times a week 30 days folic acid 1 mg PO DAILY lidocaine 5% 2 patches See Protocol topical DAILY magnesium oxide 400 mg PO BID methenamine hippurate 1 g PO BID 30 days metoprolol tartrate 12.5 mg (1/2 x 25 mg) PO BID 90 days omeprazole 20 mg PO DAILY@0630 quetiapine (Seroquel) 25 mg PO DAILY [right mastectomy bra As directed] rivaroxaban (Xarelto) 20 mg PO DAILY@1700 Tobacco use date assessed: 11/19/22 Fall risk assessment: No Falls in past year Last assessed Fall Risk: 05/30/23 Dental Screening Dental Screen Date: 05/30/23 Did you have a dental visit in the last 12 months?: Yes Did you have a dental problem in the last 6 months where you did not have access to dental care?: No Was dental information given to patient?: Patient has dentist HPI Peripheral vascular disease HPI Details 82-year-old female with history of right breast cancer 2007 history of pulmonary embolism impaired glucose tolerance hypertension GERD peripheral vascular disease and hypercholesterolemia last seen in January 2023. Review of the notes was in the hospital recently question of syncope/not able to wake up. Patient is on Seroquel also. Patient was seen by the ID specialist recently for UTI treated with ertapenem. April 21 ER visit for fall with head trauma complains of low back pain. Review of the notes has seen the vascular surgeon for the lower extremity swelling and conservative management. When sitting down elevate the legs, exercise, and support stockings. drinks alcohol still on the night advised to cut down into half. she feesl fine. BM formed [facility] Medical History (Updated 05/30/23 @ 12:08 by Vinicius Burnett MD) Arthritis of lumbosacral spine B12 deficiency Bilateral hip pain Bilateral knee pain Breast cancer Chronic diarrhea Cognitive change Confusion Diarrhea Fatty liver, alcoholic GERD (gastroesophageal reflux disease) Hallucination History of alcohol use History of pulmonary embolism History of right breast cancer HTN (hypertension) Hx of deep venous thrombosis Hx of hypercalcemia Hx of metabolic acidosis Hx of tuberculosis Hypomagnesemia Impaired fasting glucose Irritable bowel syndrome Osteoarthritis of left knee Osteoporosis Peripheral neuropathy Pernicious anemia Pressure ulcer Supratherapeutic INR Thrombocytopenia TIA (transient ischemic attack) UTI (urinary tract infection) Venous insufficiency of both lower extremities Weakness Surgical History H/O right mastectomy History of appendectomy History of arthroplasty of left knee History of cataract surgery History of cystoscopy History of esophagogastroduodenoscopy (EGD) History of evacuation of hematoma History of knee replacement procedure of right knee History of left knee surgery History of lumpectomy of right breast History of tonsillectomy Hx of adenoidectomy Hx of colonoscopy S/P SASHA-BSO (total abdominal hysterectomy and bilateral salpingo-oophorectomy) Family History Father No problems noted. Mother No problems noted. Other No family history of cancer Social History Household Members: Spouse Housing: House Are you a primary director critical care to a significant other at home: No Do you presently have visiting nurse or other home services: No Alcohol intake: never Patient Tobacco Use Status: Never used Tobacco e-Cigarette/Vaping Use: Never Used Second Hand Smoke Exposure: No Advance Directives Date on File: 12/24/21 service: No Current occupational status: retired Cognitive needs: No Hearing needs: No Vision needs: Yes Questionnaire PHQ-9 Over the last 2 weeks, how often have you been bothered by any of the following problems? 1. Little interest or pleasure in doing things: several days 2. Feeling down, depressed, or hopeless: several days 3. Trouble falling or staying asleep, or sleeping too much: several days 4. Feeling tired or having little energy: several days 5. Poor appetite or overeating: not at all 6. Feeling bad about yourself - or that you are a failure or have let yourself or your family down: not at all 7. Trouble concentrating on things, such as reading the newspaper or watching television: not at all 8. Moving or speaking so slowly that other people could have noticed. Or the opposite - being so fidgety or restless that you have been moving around a lot more than usual: not at all 9. Thoughts that you would be better off or of hurting yourself in some way: not at all Total score: 4 Depression Screening Interpretation: Positive Source: Developed by Drs. Praful Kohler, Jj Mast and colleagues, with an educational bharti from [employer]. Thrive Questionnaire Date Thrive assessed: 04/27/23 AUDIT C Alcohol Use Questionnaire (AUDIT-C) 1. How often do you have a drink containing alcohol?: Monthly or less 2. How many drinks containing alcohol do you have on a typical day when you are drinking?: 1 or 2 3. How often do you have six or more drinks on one occasion?: Never Total Score: 1 CEDRIC-7 AMB Questionnaire CEDRIC-7 Date CEDRIC - 7 assessed: 11/19/22 Source: Developed by Drs. Praful Kohler, Jj Mast and colleagues, with an educational bharti from [employer]. Physical exam (Primary Care) Vital Signs: Last Vital Signs Pulse 99 05/30/23 11:34 BP 132/80 05/30/23 11:34 Pulse Ox 99 05/30/23 11:34 Oxygen Delivery Method Room Air 05/30/23 11:34 BMI result Body Mass Index 22.3 Tobacco/Smoking Status: Tobacco use Status Tobacco use date assessed 11/19/22 05/30/23 11:35 Patient Tobacco Use Status Never used Tobacco 05/30/23 11:35 e-Cigarette/Vaping Use Never Used 05/30/23 11:35 PHQ-9: PHQ-9 Score PHQ-9: Total score 4 05/30/23 11:35 Depression Screening Interpretation: Positive Thrive Assessment: Date of Thrive Assessment Date Thrive assessed 04/27/23 05/30/23 11:35 Const General: alert; No acute distress Eyes Conjunctivae: conjunctivae normal Resp Auscultation: clear to auscultation bilaterally Cardio Rate: regular rate Rhythm: regular rhythm GI Inspection: Yes normal to inspection Extrem General: Yes normal to inspection and No edema Assessment and Plan Assessment & Plan (1) Urinary tract infection: Comment: She is now doing well Code(s): N39.0 - Urinary tract infection, site not specified Plan: Patient has been seen by the Infectious Disease specialist and was treated with ertapenem (2) Peripheral vascular disease: Code(s): I73.9 - Peripheral vascular disease, unspecified Plan: When sitting down elevate the legs, exercise, and support stockings patient follows up with vascular surgeon also (3) Anemia: Code(s): D64.9 - Anemia, unspecified Plan: Chronic and stable (4) Fall: Code(s): W19.XXXA - Unspecified fall, initial encounter Qualifiers: Encounter type: initial encounter Qualified Code(s): W19.XXXA - Unspecified fall, initial encounter (5) Osteopenia: Comment: August 2020 Code(s): M85.80 - Other specified disorders of bone density and structure, unspecified site (6) GERD (gastroesophageal reflux disease): Comment: Albarran's esophagus, April 2014 EGD moderate GERD 2019 Code(s): K21.9 - Gastro-esophageal reflux disease without esophagitis Plan: Avoid the foods that causes that usually spicy foods, tomato products, juices, coffee, soda and foods that your sensitive to. After eating do not lie down, allow 3-4 hours before in lie down. And keep the head of bed above 30 degrees to avoid the acid from going up. (7) History of right breast cancer: Comment: 2006 lumpectomy and chemotherapy Code(s): Z85.3 - Personal history of malignant neoplasm of breast Plan: Up-to-date with mammogram (8) HTN (hypertension): Code(s): I10 - Essential (primary) hypertension Qualifiers: Hypertension type: essential hypertension Qualified Code(s): I10 - Essential (primary) hypertension Plan: Continue with blood pressure medication. Decrease salt intake and exercise patient is taking metoprolol 12.5 mg p.o. b.i.d. (9) History of pulmonary embolism: Code(s): Z86.711 - Personal history of pulmonary embolism Plan: Patient is on anticoagulant Orders: Orders Magnesium Today M47.816 - Spondylosis without myelopathy or radiculopathy, lumbar region Medications: New gabapentin 100 mg PO BEDTIME 30 caps 3RF M47.816 - Spondylosis without myelopathy or radiculopathy, lumbar region Changed From quetiapine (Seroquel) 25 mg PO BID To quetiapine (Seroquel) 25 mg PO DAILY 30 tabs 0RF Discontinued rivaroxaban must administer with evening meal 20 mg PO DAILY 90 tabs 3RF Z86.711 - Personal history of pulmonary embolism lidocaine 5% Apply to affected areas up to 12 hours per day 2 patches topical DAILY 30 days 60 ea 1RF pain M25.561 - Pain in right knee, M25.562 - Pain in left knee Coding Level of Care Code Est Pt Level 4 (85052) Diagnoses Urinary tract infection N39.0 Peripheral vascular disease I73.9 Anemia D64.9 Fall W19.XXXA Encounter type: initial encounter Osteopenia M85.80 GERD (gastroesophageal reflux disease) K21.9 History of right breast cancer Z85.3 HTN (hypertension) I10 Hypertension type: essential hypertension History of pulmonary embolism Z86.711
== END 2023-05-30 12:46 | disposition home or self-care (01) ==
PROVIDERS: Visit Provider Internal Medicine
DX: K21.9 Gastro-esophageal reflux disease without esophagitis (principal); I73.9 Peripheral vascular disease, unspecified; Z85.3 Personal history of malignant neoplasm of breast; I10 Essential (primary) hypertension; Z86.711 Personal history of pulmonary embolism; W19.XXXA Unspecified fall, initial encounter; D64.9 Anemia, unspecified; M85.80 Other specified disorders of bone density and structure, unspecified site
CPT/HCPCS: 99214

== ENCOUNTER 2023-06-07 13:00 | Outpatient (REF) | payer MEDICARE, SELFPAY ==
[2023-06-07 16:26] LABS: Appearance Urine Turbid; Color Urine Dark Yellow; Glucose Urine UA Negative (Negative); Leukocyte Esterase Urine Moderate (2+) (Negative); Nitrite Urine Positive (Negative); PH 5.5 (5.0-9.0); Specific Gravity - Urine 1.025 (1.005-1.025); UMIC TRIGGER UACC YES; Urine Blood Moderate (2+) (Negative); Urine Ketones 15 mg/dL (Negative); Urine Protein 30 (1+) mg/dL (Neg-Trace)
[2023-06-07 16:41] LABS: Bacteria Urine 4+ (None Seen); UACC Culture Trigger YES; WBC Urine >50 /HPF (0-5)
== END 2023-06-07 13:01 | disposition home or self-care (01) ==
LOC: HO.HMGCLNP 13:00
PROVIDERS: PCP Internal Medicine; Visit Provider Internal Medicine
DX: N39.0 Urinary tract infection, site not specified (principal)
CPT/HCPCS: 81001; 87086

== ENCOUNTER 2023-09-02 09:21 | Outpatient (AMB) | payer MEDICARE, SELFPAY ==
[2023-09-02 09:32] VITALS: BP 92/50; PULSE 93; O2SAT 99; BMI 23.0
--- NOTE | 2023-09-02 09:32 | A.OFFPC_ITS ---
Vital Signs 09/02/23 09:32 09/02/23 10:13 Height 5 ft 3 in Weight 130 lb BMI 23.0 BP 92/50 L 120/70 Blood Pressure Location Lt brachial Lt brachial Position Sitting Sitting Pulse 93 Pulse Source Pulse Oximeter Pulse Oximetry (%) 99 Oxygen Delivery Method Room Air Intake Visit Reasons: 3 mon f/u Room Service Bellhop Required: No Accompanied by: Allergies sulfamethoxazole [From Bactrim] Allergy (Severe, Verified 09/02/23 09:40) Itching trimethoprim [From Bactrim] Allergy (Severe, Verified 09/02/23 09:40) Itching cortisone [Cortisone] Allergy (Mild, Verified 09/02/23 09:40) PT STATES, hx TB IT COULD AFFECT CRYSTALS IN LUNG prochlorperazine [From Compazine] Allergy (Mild, Verified 09/02/23 09:40) LEG NUMBNESS hydrochlorothiazide Allergy (Unknown, Verified 09/02/23 09:40) RASH levofloxacin [Levaquin] Allergy (Unknown, Verified 09/02/23 09:40) Wakefulness, nausea, shaking Sulfa (Sulfonamide Antibiotics) Adverse Reaction (Intermediate, Verified 09/02/23 09:40) rash codeine Adverse Reaction (Unknown, Verified 09/02/23 09:40) NAUSEA/VOMITING chocolate Allergy (Unknown, Uncoded 06/20/23 10:32) severe headaches/vomiting Tobacco use date assessed: 11/19/22 Fall risk assessment: No Falls in past year Last assessed Fall Risk: 09/02/23 Dental Screening Dental Screen Date: 09/02/23 Did you have a dental visit in the last 12 months?: Yes Did you have a dental problem in the last 6 months where you did not have access to dental care?: No Was dental information given to patient?: Patient has dentist HPI 3 mon f/u HPI Details 82-year-old female with multiple medical problems from hypertension impaired glucose tolerance right breast cancer 2008 (mastectomy with chemotherapy) history GERD overactive bladder osteopenia lumbar spondylosis hypercholesterolemia dementia history of pulmonary embolism (2016 and peripheral vascular disease last seen in May 2023 patient's colonoscopy was last done in 2011 mammogram is due this month. Patient follows up with Hematology- Oncology last blood work was done in May 2023 noted hypokalemia [facility] Medical History (Updated 09/02/23 @ 10:24 by Vinicius Burnett MD) Urinary incontinence Bilateral hip pain Venous insufficiency of both lower extremities Bilateral knee pain Arthritis of lumbosacral spine Pressure ulcer Chronic diarrhea TIA (transient ischemic attack) UTI (urinary tract infection) Hallucination Confusion Diarrhea Supratherapeutic INR Weakness Cognitive change Pernicious anemia Osteoporosis Peripheral neuropathy Impaired fasting glucose Irritable bowel syndrome Breast cancer Thrombocytopenia Hypomagnesemia Hx of hypercalcemia History of alcohol use B12 deficiency Fatty liver, alcoholic HTN (hypertension) Hx of metabolic acidosis GERD (gastroesophageal reflux disease) Hx of deep venous thrombosis Hx of tuberculosis History of pulmonary embolism History of right breast cancer Osteoarthritis of left knee Surgical History History of left knee surgery History of arthroplasty of left knee Hx of adenoidectomy History of esophagogastroduodenoscopy (EGD) History of evacuation of hematoma Hx of colonoscopy History of cataract surgery History of cystoscopy History of knee replacement procedure of right knee History of lumpectomy of right breast History of tonsillectomy H/O right mastectomy S/P SASHA-BSO (total abdominal hysterectomy and bilateral salpingo-oophorectomy) History of appendectomy Family History Father No problems noted. Mother No problems noted. Other No family history of cancer Social History Household Members: Spouse Housing: House Are you a primary rn critical care to a significant other at home: No Do you presently have visiting nurse or other home services: No Alcohol intake: never Patient Tobacco Use Status: Never used Tobacco e-Cigarette/Vaping Use: Never Used Second Hand Smoke Exposure: No Advance Directives Date on File: 12/24/21 service: No Current occupational status: retired Cognitive needs: No Hearing needs: No Vision needs: Yes Questionnaire Thrive Questionnaire Date Thrive assessed: 04/27/23 CEDRIC-7 AMB Questionnaire CEDRIC-7 Date CEDRIC - 7 assessed: 11/19/22 Source: Developed by Drs. Praful Kohler, Vonda Vasquez, Jj Dewitt and colleagues, with an educational bharti from [employer]. Physical exam (Primary Care) Vital Signs: Last Vital Signs Pulse 93 09/02/23 09:32 BP 92/50 L 09/02/23 09:32 Pulse Ox 99 09/02/23 09:32 Oxygen Delivery Method Room Air 09/02/23 09:32 BMI result Body Mass Index 23.0 Tobacco/Smoking Status: Tobacco use Status Tobacco use date assessed 11/19/22 09/02/23 09:32 Patient Tobacco Use Status Never used Tobacco 09/02/23 09:32 e-Cigarette/Vaping Use Never Used 09/02/23 09:32 Thrive Assessment: Date of Thrive Assessment Date Thrive assessed 04/27/23 09/02/23 09:32 Const General: alert; No acute distress Eyes Conjunctivae: conjunctivae normal Resp Auscultation: clear to auscultation bilaterally Cardio Rate: regular rate Rhythm: regular rhythm GI Inspection: Yes normal to inspection Extrem General: Yes normal to inspection and No edema Office Procedures Flu Questionnaire Does the patient have a severe egg allergy?: No Does the patient have severe life threatening allergies?: No Does the patient have a fever or illness today?: No Has the patient ever had Guillain-Florence Syndrome?: No Has the patient ever had any past reaction to a flu shot?: No Immunizations flu vacc [id number] 6mos up(PF) 60 mcg(15 mcgx4)/0.5 mL IM syringe Performing Provider: Vinicius Burnett MD [facility] Administered by: JASMYNE Beard on 09/02/23 09:46 Dose Route Admin Location Dispensed Lot Number Expiration Date NDC [employer] 0.5 mL IM Left Deltoid 0.5 mL [id number] 04/22/24 89712-581-23 [employer] VIS Given Date VIS Provided VIS Publication Date 09/02/23 Single Vaccine 21 Eligibility Eligibility Date Funding Source Not [facility] Eligible 09/02/23 Private Assessment and Plan Assessment & Plan (1) HTN (hypertension): Code(s): I10 - Essential (primary) hypertension Qualifiers: Hypertension type: essential hypertension Qualified Code(s): I10 - Essential (primary) hypertension Plan: Continue with blood pressure medication. Decrease salt intake and exercise presently on metoprolol 12.5 mg twice a day concern on hypotension (2) History of right breast cancer: Comment: 2006 lumpectomy and chemotherapy Code(s): Z85.3 - Personal history of malignant neoplasm of breast Plan: Mammogram is due patient follows up with hematology oncology (3) GERD (gastroesophageal reflux disease): Comment: Albarran's esophagus, April 2014 EGD moderate GERD 2019 Code(s): K21.9 - Gastro-esophageal reflux disease without esophagitis Plan: Avoid the foods that causes that usually spicy foods, tomato products, juices, coffee, soda and foods that your sensitive to. After eating do not lie down, allow 3-4 hours before in lie down. And keep the head of bed above 30 degrees to avoid the acid from going up. (4) Osteopenia: Comment: August 2020 Code(s): M85.80 - Other specified disorders of bone density and structure, unspecified site Plan: Discussed about repeat bone density. Hematology oncology as indicated some treatment (5) History of pulmonary embolism: Code(s): Z86.711 - Personal history of pulmonary embolism Plan: Continue on Xarelto (6) Urinary incontinence: Code(s): R32 - Unspecified urinary incontinence Qualifiers: Urinary Incontinence type: urge incontinence Qualified Code(s): N39.41 - Urge incontinence Orders: Orders Influenza [id number] Immunization Today Z23 - Encounter for immunization Comprehensive Met. Panel Today K21.9 - Gastro-esophageal reflux disease without esophagitis Ferritin Today K21.9 - Gastro-esophageal reflux disease without esophagitis IRON PROFILE Today K21.9 - Gastro-esophageal reflux disease without esophagitis Reticulocyte Count Today K21.9 - Gastro-esophageal reflux disease without esophagitis Magnesium Today K21.9 - Gastro-esophageal reflux disease without esophagitis Complete Blood Count Auto Diff Today K21.9 - Gastro-esophageal reflux disease without esophagitis Free T4 (Free Thyroxine) Today K21.9 - Gastro-esophageal reflux disease without esophagitis Thyroid Stimulating Hormone Today K21.9 - Gastro-esophageal reflux disease without esophagitis Vitamin B12 and Folate Today K21.9 - Gastro-esophageal reflux disease without esophagitis Lipid Panel Today E78.00 - Pure hypercholesterolemia, unspecified, K21.9 - Gastro-esophageal reflux disease without esophagitis UA CC w/rflx Micro + Cult Today N39.41 - Urge incontinence, R30.0 - Dysuria Medications: Changed From gabapentin 100 mg PO BEDTIME 30 caps 3RF M47.816 - Spondylosis without myelopathy or radiculopathy, lumbar region To gabapentin 300 mg PO BEDTIME 90 days 90 caps 3RF M47.816 - Spondylosis without myelopathy or radiculopathy, lumbar region Coding Level of Care Code Est Pt Level 4 (25363) Diagnoses Essential hypertension I10 Hypertension type: essential hypertension History of right breast cancer Z85.3 GERD (gastroesophageal reflux disease) K21.9 Osteopenia M85.80 History of pulmonary embolism Z86.711 Urge incontinence of urine N39.41 Urinary Incontinence type: urge incontinence
[2023-09-02 10:13] VITALS: BP 120/70
== END 2023-09-02 10:33 | disposition home or self-care (01) ==
PROVIDERS: PCP Internal Medicine; Visit Provider Internal Medicine
DX: I10 Essential (primary) hypertension (principal); Z85.3 Personal history of malignant neoplasm of breast; K21.9 Gastro-esophageal reflux disease without esophagitis; M85.80 Other specified disorders of bone density and structure, unspecified site; Z86.711 Personal history of pulmonary embolism; N39.41 Urge incontinence; Z23 Encounter for immunization
CPT/HCPCS: 90471; 90686; 99214

== ENCOUNTER 2023-09-09 09:48 | Outpatient (REF) | payer MEDICARE, SELFPAY ==
--- NOTE | ~2023-09-09 | MM_ITS ---
EXAMINATION: BONE DENSITOMETRY CLINICAL INDICATION: Osteoporosis. COMPARISON: Previous BD dated 08/27/2020 and baseline BD dated 01/10/2009. TECHNIQUE: Using a [employer] (ML4D) DXA System (software version: 13.1) manufactured by [employer], dual-energy x-ray absorptiometry was performed of the lumbar spine and left hip. The images are of good technical quality. Summary results are attached. FINDINGS: LEFT FEMUR, NECK: Current: BMD 0.719 g/cm2, Z-score 0.0, T-score -2.3, osteopenia. Prior: BMD 0.762 g/cm2. Baseline: BMD 0.861 g/cm2. LEFT FEMUR, TOTAL: Current: BMD 0.759 g/cm2, Z-score 0.2, T-score -2.0, osteopenia, 5.8% decrease from previous, 20.1% decrease from baseline (<5% change is not significant). Prior: BMD 0.806 g/cm2. Baseline: BMD 0.950 g/cm2. AP SPINE L1-L4: Current: BMD 0.991 g/cm2, Z-score 0.5, T-score -1.6, osteopenia, 1.6% increase from previous, 4.4% increase from baseline (<5% change is not significant). Prior: BMD 0.975 g/cm2. Baseline: BMD 0.949 g/cm2. IDENTIFIED RISK FACTORS: Early menopause, hysterectomy, low calcium intake, bilateral oophorectomy, rheumatoid arthritis, secondary osteoporosis. HISTORY OF FRACTURE: None listed. MEDICATIONS: None listed. MM/XR DEXA axial skeleton IMPRESSION: 1. DIAGNOSIS: Osteopenia based on the lowest T-score value of -2.3 in the femoral neck applying World Health Organization criteria. 2. 10-YEAR FRACTURE RISK PREDICTION, FRAX: Major osteoporotic fracture (clinical spine, forearm, hip or shoulder) 21.5%. Hip fracture 8.1%. 3. Treatment Recommendations: NOF guidelines recommend consideration for treatment in postmenopausal women and men age 50 and older presenting with the following: -A hip or vertebral (clinical or morphometric) fracture. -T-score less than or equal to -2.5 at the femoral neck or spine after appropriate evaluation to exclude secondary causes. -Low bone mass at the hip or spine and a 10-year fracture probability by FRAX of greater than or equal to 3% for hip fracture or greater than or equal to 20% for major osteoporotic fracture based on the [place] adapted WHO algorithm. 4. Other Recommendations: All treatment decisions require clinical judgment and consideration of individual patient factors, including patient preferences, comorbidities, previous drug use, risk factors not captured in the FRAX model (e.g. frailty, falls, vitamin D deficiency, increased bone turnover, interval significant decline in bone density) and possible under or overestimation of fracture risk by FRAX. Additional medical evaluation for secondary cause of low bone mineral density may be appropriate. FUTURE SCAN RECOMMENDATION: People with diagnosed cases of osteoporosis or at high risk for fracture should have regular bone mineral density tests. For patients eligible for Medicare, routine testing is allowed once every 2 years. The testing frequency can be increased to one year for patients who have rapidly progressing disease, those who are receiving or discontinuing medical therapy to restore bone mass, or have additional risk factors.
--- NOTE | ~2023-09-09 | MM_ITS ---
EXAMINATION: MM SCREENING DIGITAL BREAST TOMOSYNTHESIS, LEFT CLINICAL INFORMATION: Screening. Asymptomatic. The patient is status post right mastectomy. COMPARISON: Mammography: This study is compared with prior exams dating back to 2018. TECHNIQUE: Digital breast tomosynthesis is performed in both the craniocaudal and mediolateral oblique views along with computer-aided detection (CAD). Synthesized 2D images are generated from the tomosynthesis. FINDINGS: There are scattered areas of fibroglandular density (ACR BI-RADS breast composition Category b). There are no significant masses, abnormal calcifications, or other abnormalities. MM/MM tomosynthesis screening LT IMPRESSION: No mammographic evidence of malignancy. ASSESSMENT: BI-RADS BI-RADS 1 - Negative RECOMMENDATION: Routine annual mammography screening. 1 year F/U This examination should not preclude the clinical evaluation of a suspicious palpable abnormality. This patient's information was entered into a reminder system with a target due date for their next mammogram.
== END 2023-09-09 09:49 | disposition home or self-care (01) ==
LOC: HO.MAMMO 09:48
PROVIDERS: PCP Internal Medicine; Visit Provider Internal Medicine
DX: Z12.31 Encounter for screening mammogram for malignant neoplasm of breast (principal); Z13.820 Encounter for screening for osteoporosis; M85.80 Other specified disorders of bone density and structure, unspecified site; Z78.0 Asymptomatic menopausal state
CPT/HCPCS: 77063; 77067; 77080

== ENCOUNTER → 2023-09-09 10:00 | Outpatient (BNV) | payer MEDICARE, SELFPAY | PROVIDERS: PCP Internal Medicine; Visit Provider Radiology Diagnostic Radiology | DX: Z12.31 Encounter for screening mammogram for malignant neoplasm of breast (principal) | CPT/HCPCS: 77063; 77067 ==

== ENCOUNTER 2023-11-03 10:20 | Outpatient (AMB) | payer MEDICARE, SELFPAY ==
--- NOTE | 2023-11-03 10:22 | A.OFFVIS_ITS ---
Intake Vital Signs 11/03/23 10:45 Height 5 ft 3 in Weight 126 lb 4 oz BMI 22.4 BP 123/62 Blood Pressure Location Lt brachial Position Sitting Pulse 104 H Intake Visit Reasons: yearly breast examination Intake Note: Patient is seen in office for yearly breast exam. Pt c/o: admits to a rash under the breast, blister on the buttock, wears pads due to leakage, admits to discharge, uses a donut when sitting, unsure of redness or warm to touch, onset for a couple of months, has a dark spot in the lip for years that would have to get it removed mm:09/09/23 Ticker Maintainer Required: No Accompanied by: Self / Same As Patient Allergies sulfamethoxazole [From Bactrim] Allergy (Severe, Verified 11/03/23 10:31) Itching trimethoprim [From Bactrim] Allergy (Severe, Verified 11/03/23 10:31) Itching cortisone [Cortisone] Allergy (Mild, Verified 11/03/23 10:31) PT STATES, hx TB IT COULD AFFECT CRYSTALS IN LUNG prochlorperazine [From Compazine] Allergy (Mild, Verified 11/03/23 10:31) LEG NUMBNESS hydrochlorothiazide Allergy (Unknown, Verified 11/03/23 10:31) RASH levofloxacin [Levaquin] Allergy (Unknown, Verified 11/03/23 10:31) Wakefulness, nausea, shaking Sulfa (Sulfonamide Antibiotics) Adverse Reaction (Intermediate, Verified 11/03/23 10:31) rash codeine Adverse Reaction (Unknown, Verified 11/03/23 10:31) NAUSEA/VOMITING chocolate Allergy (Unknown, Uncoded 11/03/23 10:31) severe headaches/vomiting HPI HPI Comments History of Present Illness Details 83-year-old female patient, 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 In 2006 she was diagnosed with right breast carcinoma and underwent a lumpectomy with axillary sentinel node biopsy in January 2007. 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 She underwent radiation therapy. 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 Her last left breast mammogram of 09/09/2023 revealed no mammographic evidence of malignancy (BI-RADS 1). She generally feels well and denies any new right chest or left breast symptoms. She also complains of soreness in her back with skin irritation for which she uses a donut. She also has a skin rash located below her breast on the left side. FORMERLY [facility], [facility]–1983 Medical History (Updated 11/03/23 @ 10:46 by Jose Angel Hutson MD) Urinary incontinence Bilateral hip pain Venous insufficiency of both lower extremities Bilateral knee pain Arthritis of lumbosacral spine Pressure ulcer Chronic diarrhea TIA (transient ischemic attack) UTI (urinary tract infection) Hallucination Confusion Diarrhea Supratherapeutic INR Weakness Cognitive change Pernicious anemia Osteoporosis Peripheral neuropathy Impaired fasting glucose Irritable bowel syndrome Breast cancer Thrombocytopenia Hypomagnesemia Hx of hypercalcemia History of alcohol use B12 deficiency Fatty liver, alcoholic HTN (hypertension) Hx of metabolic acidosis GERD (gastroesophageal reflux disease) Hx of deep venous thrombosis Hx of tuberculosis History of pulmonary embolism History of right breast cancer Osteoarthritis of left knee Surgical History History of left knee surgery History of arthroplasty of left knee Hx of adenoidectomy History of esophagogastroduodenoscopy (EGD) History of evacuation of hematoma Hx of colonoscopy History of cataract surgery History of cystoscopy History of knee replacement procedure of right knee History of lumpectomy of right breast History of tonsillectomy H/O right mastectomy S/P SASHA-BSO (total abdominal hysterectomy and bilateral salpingo-oophorectomy) History of appendectomy Family History Father No problems noted. Mother No problems noted. Other No family history of cancer Social History Household Members: Spouse Housing: House Are you a primary health care coach to a significant other at home: No Do you presently have visiting nurse or other home services: No Alcohol intake: never Comment: aware of trip hazard Patient Tobacco Use Status: Never used Tobacco e-Cigarette/Vaping Use: Never Used Second Hand Smoke Exposure: No Advance Directives Date on File: 12/24/21 service: No Current occupational status: retired Cognitive needs: No Hearing needs: No Vision needs: Yes Review of Systems Const All systems reviewed & are unremarkable except as noted in HPI and below Card Denies chest pain, Denies edema and Denies irregular heart rhythm Resp Denies cough and Denies hemoptysis Denies nipple discharge Musc Reports myalgias, Reports arthralgias and Reports joint swelling Skin/Breast Denies breast swelling, Denies breast skin changes, Denies breast pain, Denies breast mass and Denies nipple discharge Physical Exam Vital Signs: Last Vital Signs Pulse 104 H 11/03/23 10:45 BP 123/62 11/03/23 10:45 BMI result Body Mass Index 22.4 Const General: no acute distress and well developed Nutritional Appearance: well nourished Orientation/consciousness: patient oriented x3 Limitations: no limitations HEENT Head: Yes normocephalic and Yes atraumatic Ears: hearing grossly normal bilaterally Neck Neck: Yes no lymphadenopathy and Yes trachea midline Chest Other: Status post right mastectomy, no chest wall or skin lesions, no palpable lymphadenopathy. Left breast: No skin change, no nipple discharge, no nipple retraction, no palpable mass, no enlarged lymph nodes. Fungal skin infection noted below the left breast. GI Inspection: Yes normal to inspection Back/Spine/Pelvis Other: Evidence of skin irritation without open wound in the coccyx area. Skin General skin exam: no rashes or lesions noted Neuro General: patient oriented x3 Extrem General: Yes no clubbing, cyanosis or edema Assessment & Plan Assessment & Plan (1) History of right breast cancer: Comment: 2007 lumpectomy and chemotherapy Code(s): Z85.3 - Personal history of malignant neoplasm of breast Plan: 83-year-old female patient status post right breast lumpectomy and sentinel biopsy followed by right simple mastectomy in 2008 for recurrent disease returning today for routine yearly breast follow-up examination. She generally feels well and denies any ongoing breast symptoms. Examination today reveals no evidence of recurrence disease or of new palpable masses. Her most recent mammogram of the left breast on 09/09/2023 reveals no mammographic evidence of malignancy (BI-RADS 1). Annual screening is recommended. I recommended follow- up examination 1 year, sooner p.r.n.. I provided patient with several pink foam pads to cushion her coccyx for the skin irritation as noted above. (2) Fungal skin infection: Code(s): B36.9 - Superficial mycosis, unspecified Plan: Recommend applying nystatin cream to wound as needed. Coding Level of Care Code Est Pt Level 3 (32746) Diagnoses History of right breast cancer Z85.3 Fungal skin infection B36.9
[2023-11-03 10:45] VITALS: BP 123/62; PULSE 104; BMI 22.4
== END 2023-11-03 10:54 | disposition home or self-care (01) ==
PROVIDERS: PCP Internal Medicine; Visit Provider Surgery
DX: B36.9 Superficial mycosis, unspecified (principal); Z85.3 Personal history of malignant neoplasm of breast
CPT/HCPCS: 99213

== ENCOUNTER → 2023-11-03 10:20 | Outpatient (BNVA) | payer MEDICARE, SELFPAY | PROVIDERS: PCP Internal Medicine; Visit Provider Surgery | DX: B36.9 Superficial mycosis, unspecified (principal); Z85.3 Personal history of malignant neoplasm of breast | CPT/HCPCS: 99212 ==

== ENCOUNTER 2023-11-29 01:10 | Emergency (ER) | payer MEDICARE, SELFPAY ==
[2023-11-29 01:29] VITALS: BP 145/80; PULSE 93; RESP 16; TEMP 36.3; O2SAT 97
--- NOTE | 2023-11-29 01:29 | MHC.EDTECH ---
This Tech gave the pt a urine cup, informed her when she can to give a sample and bring it back to this tech in triage.
[2023-11-29 01:38] VITALS: BMI 23.2
[2023-11-29 01:55] LABS: Appearance Urine Turbid; Color Urine Yellow; Glucose Urine UA Negative (Negative); Leukocyte Esterase Urine Large (3+) (Negative); Nitrite Urine Negative (Negative); UMIC TRIGGER UACC YES; Urine Blood Small (1+) (Negative); Urine Ketones Negative (Negative); Urine Protein Trace mg/dL (Neg-Trace)
--- NOTE | 2023-11-29 02:00 | ED.FEMALEGU ---
HPI - Female Genitourinary General Chief complaint: Urogenital-Female Stated complaint: ?UTI Time Seen by Provider: 11/29/23 02:00 History of Present Illness HPI Narrative: The patient is an 83-year-old female with a history of dementia who lives at home with her . She went to bed tonight but while in bed had a sense of need to urinate. She was wearing a diaper. She urinated and found it very painful. She has a history of UTIs and her brought her to the emergency room. She had not had any dysuria during the day earlier in the day. No fever, sweats, chills. Related Data Home Medications Medication Instructions Recorded Confirmed omeprazole 20 mg capsule,delayed 20 mg PO DAILY@0630 01/08/22 06/20/23 release lidocaine 5 % topical patch 2 patch topical DAILY pain 04/11/23 06/20/23 Previous Rx's Medication Instructions Recorded folic acid 1 mg tablet 1 mg PO DAILY #90 tabs 09/02/22 right mastectomy bra #2 ea 10/22/22 estradiol 0.01% (0.1 mg/gram) See Rx Instructions .Route 3XW 30 01/12/23 vaginal cream days #42.5 grams metoprolol tartrate 25 mg tablet 12.5 mg (1/2 x 25 mg) PO BID 90 02/28/23 days #90 tabs magnesium oxide 400 mg PO BID #180 tabs 03/10/23 quetiapine 25 mg tablet (Seroquel) 25 mg PO DAILY #90 tabs 07/11/23 rivaroxaban 20 mg tablet (Xarelto) 20 mg PO QPM #90 tabs 08/21/23 folic acid 1 mg tablet 1 mg PO DAILY #90 tabs 09/02/23 gabapentin 300 mg capsule 300 mg PO BEDTIME 90 days #90 caps 09/02/23 nystatin 100,000 unit/gram topical 1 appl topical BID #15 grams 11/04/23 cream nitrofurantoin 100 mg PO Q12H #13 caps 11/29/23 monohydrate/macrocrystals 100 mg capsule (Macrobid) Allergies Allergy/AdvReac Type Severity Reaction Status Date / Time sulfamethoxazole Allergy Severe Itching Verified 11/03/23 10:31 [From Bactrim] trimethoprim [From Bactrim] Allergy Severe Itching Verified 11/03/23 10:31 cortisone [Cortisone] Allergy Mild PT STATES, Verified 11/03/23 10:31 hx TB IT COULD AFFECT CRYSTALS IN LUNG prochlorperazine Allergy Mild LEG Verified 11/03/23 10:31 [From Compazine] NUMBNESS hydrochlorothiazide Allergy Unknown RASH Verified 11/03/23 10:31 levofloxacin [Levaquin] Allergy Unknown Wakefulness, Verified 11/03/23 10:31 nausea, shaking Sulfa (Sulfonamide AdvReac Intermediate rash Verified 11/03/23 10:31 Antibiotics) codeine AdvReac Unknown NAUSEA/VOMI Verified 11/03/23 10:31 TING chocolate Allergy Unknown severe Uncoded 11/03/23 10:31 headaches/vomiting Review of Systems Review of Systems: Yes all other systems are reviewed and are negative FORMERLY [facility], [facility] Past Medical History Medical History (Updated 11/29/23 @ 03:26 by Rigo Roach MD) Urinary incontinence Bilateral hip pain Venous insufficiency of both lower extremities Bilateral knee pain Arthritis of lumbosacral spine Pressure ulcer Chronic diarrhea TIA (transient ischemic attack) UTI (urinary tract infection) Hallucination Confusion Diarrhea Supratherapeutic INR Weakness Cognitive change Pernicious anemia Osteoporosis Peripheral neuropathy Impaired fasting glucose Irritable bowel syndrome Breast cancer Thrombocytopenia Hypomagnesemia Hx of hypercalcemia History of alcohol use B12 deficiency Fatty liver, alcoholic HTN (hypertension) Hx of metabolic acidosis GERD (gastroesophageal reflux disease) Hx of deep venous thrombosis Hx of tuberculosis History of pulmonary embolism History of right breast cancer Osteoarthritis of left knee Surgical History History of left knee surgery History of arthroplasty of left knee Hx of adenoidectomy History of esophagogastroduodenoscopy (EGD) History of evacuation of hematoma Hx of colonoscopy History of cataract surgery History of cystoscopy History of knee replacement procedure of right knee History of lumpectomy of right breast History of tonsillectomy H/O right mastectomy S/P SASHA-BSO (total abdominal hysterectomy and bilateral salpingo-oophorectomy) History of appendectomy Family History Family History Father No problems noted. Mother No problems noted. Other No family history of cancer Social History Social History (Reviewed 11/03/23 @ 10:32 by LEESA Siddiqui Household Members: Spouse Housing: House Are you a primary rn transitional care to a significant other at home: No Do you presently have visiting nurse or other home services: No Alcohol intake: former Comment: aware of trip hazard Patient Tobacco Use Status: Never used Tobacco Smoked in Last 30 Days: No e-Cigarette/Vaping Use: Never Used Second Hand Smoke Exposure: No Use of substances other than those prescribed or required for medical reasons: No Advance Directives: Yes Advance Directives on File: Yes Advance Directives Date on File: 12/24/21 Patient : No service: No Current occupational status: retired Cognitive needs: No Hearing needs: No Vision needs: Yes Physical Exam Vital Signs: Vital Signs: Last Vital Signs Temp 97.4 F 11/29/23 01:29 Pulse 93 11/29/23 01:29 Resp 16 11/29/23 01:29 BP 145/80 H 11/29/23 01:29 Pulse Ox 97 11/29/23 01:29 O2 Del Method Room Air 11/29/23 01:29 BMI result Body Mass Index 23.2 Const: Other: The patient is awake and alert. She is well groomed. She does not appear in distress. HEENT: Other: The face is symmetrical. ?Mucous membranes moist. Eyes: Other: Pupils are round equal, conjunctivae are clear, extraocular movements intact Resp: Effort & Inspection: normal respiratory effort Auscultation: clear to auscultation bilaterally Cardio: Rate: regular rate Rhythm: regular rhythm Heart sounds: S1 normal heart sound present and S2 normal heart sound present GI: Other: The abdomen is flat and soft. There is some suprapubic tenderness. No rebound or guarding. Skin: Other: Warm and dry Neuro: Other: The patient is awake and alert. Speech is clear. Moving extremities normally. Extrem: Other: No peripheral edema Medical Decision Making Medical Decision Making MDM Narrative: The patient is an 83-year-old female who presents with acute dysuria that started this evening. She has a urinalysis that suggests a UTI. She does not have any symptoms of a more systemic illness. I reviewed her chart and her last positive urine culture was from March 2023. At that time she grew an ESBL sensitive to nitrofurantoin and ertapenem. Clinically the patient looks quite well. CBC and CRP are unremarkable. Her creatinine is 1.02 with a BUN of 17. Her GFR is 52. Her estimated creatinine clearance is 37.3. I think this is probably sufficiently good that using a course of nitrofurantoin would be reasonable given her history of previous ESBL infections. She certainly does not look ill enough for hospitalization. She will therefore be started on nitrofurantoin (Macrobid) for 7 days. She is encouraged to drink lot of fluids and to follow up with her regular doctor. Lab Data 11/29/23 02:55 11/29/23 02:55 Labs: Lab Results 11/29/23 11/29/23 Range/Units 01:48 02:55 WBC 8.0 (4.8-10.8) X10*3/uL RBC 3.75 L (4.20-5.50) X10*6/uL Hgb 12.8 (12.0-16.0) g/dl Hct 37.7 (37.0-47.0) % MCV 100.5 H (80.0-98.0) fL MCH 34.1 H (27.0-33.0) pg MCHC 34.0 (31.0-35.0) g/dl RDW 13.2 (11.0-16.0) % Plt Count 117 L (160-400) X10*3/uL MPV 9.9 (9.4-12.3) fL Immature Gran % (Auto) 0.4 (0.0-0.4) % Neut % (Auto) 65.3 (45-73) % Lymph % (Auto) 16.3 L (20-40) % [place] % (Auto) 16.7 H (2-11) % Eos % (Auto) 0.7 (0-4) % Baso % (Auto) 0.6 (0-2) % Lymph # (Auto) 1.3 (1.2-4.9) X10*3/uL [place] # (Auto) 1.3 H (0.1-1.2) X10*3/uL Eos # (Auto) 0.1 (0.0-0.4) X10*3/uL Baso # (Auto) 0.1 (0.0-0.2) X10*3/uL Abs Immat Gran (auto) 0.03 (0.00-0.03) X10*3/uL Absolute Neuts (auto) 5.3 (2.0-8.3) x10*3/uL Absolute Nucleated RBC 0.000 (0.0-0.012) X10*3/uL Nucleated RBC % (auto) 0.0 (0.0-0.2) /100WBC Sodium 142 (135-145) mmol/L Potassium 3.7 (3.3-5.1) mmol/L Chloride 107 (96-108) mmol/L Carbon Dioxide 23 (22-29) mmol/L Anion Gap 16 (12-20) BUN 17 H (9-16) mg/dL Creatinine 1.02 (0.5-1.4) mg/dL Estim Creat Clear Calc 37.3 Estimated GFR 52 Random Glucose 86 (60-115) mg/dL Calcium 8.7 (8.4-10.2) mg/dL C-Reactive Protein 0.39 (< or = 0.50) mg/dL Urine Color Yellow Urine Appearance Turbid Urine pH 6.0 (5.0-9.0) Ur Specific [place] 1.010 (1.005-1.025) Urine Protein Trace (Neg-Trace) mg/dL Urine Glucose (UA) Negative (Negative) mg/dL Urine Ketones Negative (Negative) mg/dL Urine Blood Small (1+) H (Negative) Urine Nitrite Negative (Negative) Ur Leukocyte Esterase Large (3+) H (Negative) Urine RBC 0-2 (0-2) /HPF Urine WBC >50 H (0-5) /HPF Ur Squamous Epith Cells 0-2 (0-2) /HPF Urine Bacteria 4+ (None Seen) Hyaline Casts 0-2 (0-2) /LPF Discharge Plan Discharge Clinical Impression: Urinary tract infection Patient Disposition: Home, Self-Care Instructions: Urinary Tract Infection in Older Adults (ED) Additional Instructions: You seem to have another urinary tract infection. You have been started on a course of nitrofurantoin, an antibiotic. Please take your next dose at around 4:00PM this afternoon. Take the next dose at 5:00AM on Tuesday. After that take it approximately every 12 hours. Please make a follow-up appointment with your regular doctor to get rechecked next week. Drink a lot of fluids. Return to the emergency room if worse. Prescriptions: New nitrofurantoin monohyd/m-cryst [Macrobid] 100 mg capsule 100 mg PO Q12H Qty: 13 0RF Rx Instructions: must administer with a meal/food No Action omeprazole 20 mg capsule,delayed release(DR/EC) 20 mg PO DAILY@0630 folic acid 1 mg Tablet 1 mg PO DAILY Qty: 90 3RF estradiol 0.01 % (0.1 mg/gram) cream See Rx Instructions .Route 3XW 30 Days Qty: 42.5 2RF Rx Instructions: pea-sized to urethra 3 times a week metoprolol tartrate 25 mg tablet 12.5 mg PO BID 90 Days Qty: 90 3RF magnesium oxide 400 mg magnesium tablet 400 mg PO BID Qty: 180 2RF quetiapine [Seroquel] 25 mg tablet 25 mg PO DAILY Qty: 90 1RF Xarelto 20 mg tablet 20 mg PO QPM Qty: 90 3RF folic acid 1 mg Tablet 1 mg PO DAILY Qty: 90 4RF nystatin 100,000 unit/gram cream 1 appl topical BID Qty: 15 0RF lidocaine 5 % adhesive patch,medicated 2 patch topical DAILY Protocol: Apply to: Apply to: BACKS OF KNEES Rx Instructions: APPLY TO BACKS OF KNEES gabapentin 300 mg capsule 300 mg PO BEDTIME 90 Days Qty: 90 3RF (DME) right mastectomy bra See Rx Instructions .Route .MEDSUPPLY Qty: 2 0RF Rx Instructions: As directed Referrals: Lex,Vinicius Magdaleno MD [Primary Care Provider] - (Urinary tract infection, history of ESBL)
[2023-11-29 02:06] LABS: Bacteria Urine 4+ (None Seen); Hyaline Casts Urine 0-2 /LPF (0-2); RBC Urine 0-2 /HPF (0-2); Squamous Epithelial Cell Urine 0-2 /HPF (0-2); UACC Culture Trigger YES; WBC Urine >50 /HPF (0-5)
[2023-11-29 03:01] LABS: Basophils Absolute Auto 0.1 X10*3/uL (0.0-0.2); Basophils Percent Auto 0.6 % (0-2); Eosinophils Absolute Auto 0.1 X10*3/uL (0.0-0.4); Eosinophils Percent Auto 0.7 % (0-4); Hematocrit 37.7 % (37.0-47.0); Hemoglobin 12.8 g/dl (12.0-16.0); Imm Gran Abs Auto 0.03 X10*3/uL (0.00-0.03); Imm Gran Pct Auto 0.4 % (0.0-0.4); Lymphocytes Absolute Auto 1.3 X10*3/uL (1.2-4.9); Lymphocytes Percent Auto 16.3 % (20-40); Mean Corpuscular Hemoglobin 34.1 pg (27.0-33.0); Mean Corpuscular Volume 100.5 fL (80.0-98.0); Mean Platelet Volume 9.9 fL (9.4-12.3); Monocytes Absolute Auto 1.3 X10*3/uL (0.1-1.2); Monocytes Percent Auto 16.7 % (2-11); Neutrophils Absolute Auto 5.3 x10*3/uL (2.0-8.3); Neutrophils Percent Auto 65.3 % (45-73); Platelet Count 117 X10*3/uL (160-400); Red Blood Count 3.75 X10*6/uL (4.20-5.50); Red Cell Distribution Width 13.2 % (11.0-16.0)
[2023-11-29 03:04] LABS: MANUAL DIFF FLAG NO
[2023-11-29 03:10] LABS: Anion Gap 16 (12-20); Blood Urea Nitrogen 17 mg/dL (9-16); C Reactive Protein 0.39 mg/dL (< or = 0.50); Calcium 8.7 mg/dL (8.4-10.2); Carbon Dioxide 23 mmol/L (22-29); Chloride 107 mmol/L (96-108); Creatinine Clr Calc Pharmacy 37.3; Estimated Glomerular Filt Rate 52; Glucose Random 86 mg/dL (60-115); Potassium 3.7 mmol/L (3.3-5.1); Sodium 142 mmol/L (135-145)
[2023-11-29 03:33] VITALS: BP 133/66; PULSE 88; RESP 18; TEMP 36.6; O2SAT 99
[2023-11-29] MEDS: Nitrofurantoin Monohyd/M-Cryst 100 MG CAPSULE PO (03:34)
== END 2023-11-29 03:52 | disposition home or self-care (01) ==
PROVIDERS: Emergency Provider Emergency Medicine; PCP Internal Medicine
DX: N39.0 Urinary tract infection, site not specified (principal); R30.9 Painful micturition, unspecified; F03.90 Unspecified dementia, unspecified severity, without behavioral disturbance, psychotic disturbance, mood disturbance, and anxiety
CPT/HCPCS: 36415; 80048; 81001; 85025; 86140; 87086; 87088; 87186; 99283; 99284

== ENCOUNTER 2023-12-08 07:13 | Outpatient (REF) | payer MEDICARE, SELFPAY ==
[2023-12-08 11:37] LABS: Appearance Urine Turbid; Color Urine Yellow; Glucose Urine UA Negative (Negative); Leukocyte Esterase Urine Large (3+) (Negative); Nitrite Urine Negative (Negative); PH 5.5 (5.0-9.0); UMIC TRIGGER UA YES; UMIC TRIGGER UACC YES; Urine Blood Small (1+) (Negative); Urine Ketones Negative (Negative); Urine Protein Trace mg/dL (Neg-Trace)
[2023-12-08 11:52] LABS: MANUAL DIFF FLAG NO
[2023-12-08 11:59] LABS: Basophils Absolute Auto 0.1 X10*3/uL (0.0-0.2); Basophils Percent Auto 0.8 % (0-2); Eosinophils Absolute Auto 0.1 X10*3/uL (0.0-0.4); Eosinophils Percent Auto 1.3 % (0-4); Hematocrit 38.4 % (37.0-47.0); Hemoglobin 12.6 g/dl (12.0-16.0); Imm Gran Abs Auto 0.03 X10*3/uL (0.00-0.03); Imm Gran Pct Auto 0.5 % (0.0-0.4); Immature Retic Fraction 13.2 % (3.0-15.9); Lymphocytes Absolute Auto 1.1 X10*3/uL (1.2-4.9); Lymphocytes Percent Auto 19.2 % (20-40); Mean Corpuscular HGB Conc 32.8 g/dl (31.0-35.0); Mean Corpuscular Hemoglobin 33.6 pg (27.0-33.0); Mean Corpuscular Volume 102.4 fL (80.0-98.0); Mean Platelet Volume 10.3 fL (9.4-12.3); Monocytes Absolute Auto 0.9 X10*3/uL (0.1-1.2); Monocytes Percent Auto 14.3 % (2-11); Neutrophils Absolute Auto 3.8 x10*3/uL (2.0-8.3); Neutrophils Percent Auto 63.9 % (45-73); Platelet Count 199 X10*3/uL (160-400); Red Blood Count 3.75 X10*6/uL (4.20-5.50); Red Cell Distribution Width 13.3 % (11.0-16.0); Retic HGB Equivalent 36.7 pg (30.0-35.0); Reticulocyte Percent 1.8 % (0.5-1.8); Reticulocytes Absolute 0.068 X10*6/uL (0.026-0.095); White Blood Count 5.9 X10*3/uL (4.8-10.8)
[2023-12-08 12:02] LABS: Alanine Aminotransferase 25 U/L (0-31); Albumin Level 3.8 g/dL (3.5-5.0); Alkaline Phosphatase 144 U/L (39-117); Anion Gap 14 (12-20); Aspartate Amino Transferase 28 U/L (5-31); Bilirubin Total 0.5 mg/dL (0.0-1.0); Blood Urea Nitrogen 17 mg/dL (9-16); Calcium 9.6 mg/dL (8.4-10.2); Carbon Dioxide 26 mmol/L (22-29); Chloride 105 mmol/L (96-108); Cholesterol 237 mg/dL (<200); Estimated Glomerular Filt Rate 57; Glucose Random 86 mg/dL (60-115); HDL Cholesterol 69 mg/dL (>40); Iron 96 mcg/dL (30-160); LDL Cholesterol Calculated 139 mg/dL (<100); Magnesium 1.9 mg/dL (1.6-2.6); Percent Iron Saturation 35 % (15-50); Potassium 3.3 mmol/L (3.3-5.1); Sodium 142 mmol/L (135-145); Total Iron Binding Capacity 276 mcg/dL (228-428); Total Protein 7.8 g/dL (6.5-8.0); Triglycerides 146 mg/dL (<150); Unsaturated Iron Binding 180 ug/dL
[2023-12-08 12:04] LABS: Alanine Aminotransferase 24 U/L (0-31); Albumin Level 3.8 g/dL (3.5-5.0); Alkaline Phosphatase 142 U/L (39-117); Anion Gap 13 (12-20); Aspartate Amino Transferase 29 U/L (5-31); Bilirubin Total 0.5 mg/dL (0.0-1.0); Blood Urea Nitrogen 17 mg/dL (9-16); Calcium 9.5 mg/dL (8.4-10.2); Carbon Dioxide 26 mmol/L (22-29); Chloride 106 mmol/L (96-108); Estimated Glomerular Filt Rate 57; Glucose Random 94 mg/dL (60-115); Potassium 3.3 mmol/L (3.3-5.1); Sodium 142 mmol/L (135-145); Total Protein 7.7 g/dL (6.5-8.0)
[2023-12-08 12:08] LABS: Bacteria Urine 4+ (None Seen); Hyaline Casts Urine 0-2 /LPF (0-2); Squamous Epithelial Cell Urine >20 /HPF (0-2); UACC Culture Trigger YES; WBC Urine >50 /HPF (0-5)
[2023-12-08 12:13] LABS: D Dimer High Sensitivity < 150 NG/ML
[2023-12-08 12:21] LABS: Thyroid Stimulating Hormone 2.87 uIU/mL (0.32-4.0)
[2023-12-08 12:23] LABS: Ferritin 256 ng/mL (10-250)
[2023-12-08 12:28] LABS: Folate 14.1 ng/mL (> or = 4.0); Vitamin B12 381 pg/mL (200-900)
[2023-12-09 09:38] LABS: CA 27.29 39 U/mL (<38)
== END 2023-12-08 07:14 | disposition home or self-care (01) ==
LOC: HO.HMGCLDS 07:13
PROVIDERS: PCP Internal Medicine; Referring Provider Internal Medicine Medical Oncology; Visit Provider Internal Medicine
DX: K21.9 Gastro-esophageal reflux disease without esophagitis (principal); E78.00 Pure hypercholesterolemia, unspecified; Z85.3 Personal history of malignant neoplasm of breast
CPT/HCPCS: 36415; 80053; 80061; 81001; 82607; 82728; 82746; 83540; 83735; 84439; 84443; 85025; 85045; 85379; 86300; 87086

== ENCOUNTER 2023-12-14 10:49 | Outpatient (AMB) | payer MEDICARE, SELFPAY ==
[2023-12-14 11:04] VITALS: BP 130/78; PULSE 84; O2SAT 97; BMI 22.3
--- NOTE | 2023-12-14 11:04 | A.OFFPC_ITS ---
Vital Signs 12/14/23 11:04 Height 5 ft 3 in Weight 126 lb BMI 22.3 BP 130/78 Blood Pressure Location Lt brachial Position Sitting Pulse 84 Pulse Source Pulse Oximeter Pulse Oximetry (%) 97 Oxygen Delivery Method Room Air Intake Visit Reasons: 3 Month F/U Allergies sulfamethoxazole [From Bactrim] Allergy (Severe, Verified 12/14/23 11:04) Itching trimethoprim [From Bactrim] Allergy (Severe, Verified 12/14/23 11:04) Itching cortisone [Cortisone] Allergy (Mild, Verified 12/14/23 11:04) PT STATES, hx TB IT COULD AFFECT CRYSTALS IN LUNG prochlorperazine [From Compazine] Allergy (Mild, Verified 12/14/23 11:04) LEG NUMBNESS hydrochlorothiazide Allergy (Unknown, Verified 12/14/23 11:04) RASH levofloxacin [Levaquin] Allergy (Unknown, Verified 12/14/23 11:04) Wakefulness, nausea, shaking Sulfa (Sulfonamide Antibiotics) Adverse Reaction (Intermediate, Verified 12/14/23 11:04) rash codeine Adverse Reaction (Unknown, Verified 12/14/23 11:04) NAUSEA/VOMITING chocolate Allergy (Unknown, Uncoded 12/14/23 11:04) severe headaches/vomiting Tobacco use date assessed: 12/14/23 Fall risk assessment: No Falls in past year Last assessed Fall Risk: 12/14/23 Dental Screening Dental Screen Date: 12/14/23 Did you have a dental visit in the last 12 months?: Yes Did you have a dental problem in the last 6 months where you did not have access to dental care?: No Was dental information given to patient?: Patient has dentist HPI 3 Month F/U HPI Details 83-year-old female with multiple medical problems hypertension, impaired glucose tolerance right breast cancer GERD hypercholesterolemia dementia history of pulmonary embolism coming in for follow-up. Last seen in 09/02/2023. Patient follows up with the surgeon for yearly breast exam October [facility] Medical History (Updated 11/30/23 @ 00:03 by Background Daemon) Urinary incontinence Bilateral hip pain Venous insufficiency of both lower extremities Bilateral knee pain Arthritis of lumbosacral spine Pressure ulcer Chronic diarrhea TIA (transient ischemic attack) UTI (urinary tract infection) Hallucination Confusion Diarrhea Supratherapeutic INR Weakness Cognitive change Pernicious anemia Osteoporosis Peripheral neuropathy Impaired fasting glucose Irritable bowel syndrome Breast cancer Thrombocytopenia Hypomagnesemia Hx of hypercalcemia History of alcohol use B12 deficiency Fatty liver, alcoholic HTN (hypertension) Hx of metabolic acidosis GERD (gastroesophageal reflux disease) Hx of deep venous thrombosis Hx of tuberculosis History of pulmonary embolism History of right breast cancer Osteoarthritis of left knee Surgical History History of left knee surgery History of arthroplasty of left knee Hx of adenoidectomy History of esophagogastroduodenoscopy (EGD) History of evacuation of hematoma Hx of colonoscopy History of cataract surgery History of cystoscopy History of knee replacement procedure of right knee History of lumpectomy of right breast History of tonsillectomy H/O right mastectomy S/P SASHA-BSO (total abdominal hysterectomy and bilateral salpingo-oophorectomy) History of appendectomy Family History Father No problems noted. Mother No problems noted. Other No family history of cancer Social History Household Members: Spouse Housing: House Are you a primary career development coordinator/teacher to a significant other at home: No Do you presently have visiting nurse or other home services: No Alcohol intake: former Comment: aware of trip hazard Patient Tobacco Use Status: Never used Tobacco e-Cigarette/Vaping Use: Never Used Second Hand Smoke Exposure: No Advance Directives Date on File: 12/24/21 service: No Current occupational status: retired Cognitive needs: No Hearing needs: No Vision needs: Yes Questionnaire PHQ-9 Over the last 2 weeks, how often have you been bothered by any of the following problems? 1. Little interest or pleasure in doing things: several days 2. Feeling down, depressed, or hopeless: several days 3. Trouble falling or staying asleep, or sleeping too much: several days 4. Feeling tired or having little energy: several days 5. Poor appetite or overeating: not at all 6. Feeling bad about yourself - or that you are a failure or have let yourself or your family down: not at all 7. Trouble concentrating on things, such as reading the newspaper or watching television: not at all 8. Moving or speaking so slowly that other people could have noticed. Or the opposite - being so fidgety or restless that you have been moving around a lot more than usual: not at all 9. Thoughts that you would be better off or of hurting yourself in some way: not at all Total score: 4 Depression Screening Interpretation: Positive Depression Screening Done: Yes Source: Developed by Drs. Praful Kohler, Vonda Vasquez, Jj Dewitt and colleagues, with an educational bharti from [employer]. Thrive Questionnaire Date Thrive assessed: 12/14/23 I am a: Patient What is your living situation today?: I have a steady place to live Within the past 12 months, did the food you bought not last and you didn't have the money to get more?: Never true Within the past 12 months, did you worry whether your food would run out before you got money to buy more?: Never true Do you have trouble paying for medicines?: No Do you have trouble getting transportation to medical appointments?: No Do you have trouble paying your heating and electricity bill?: No Do you have trouble taking care of your child, family member or friend?: No Do you have trouble with day-to-day activities such as bathing, preparing meals, shopping, managing finances, etc.?: No Are you currently unemployed and looking for a job?: No Are you interested in more education?: No Currently or been in a relationship where the following occur: no concerns reported THRIVE Score: 0 AUDIT C Alcohol Use Questionnaire (AUDIT-C) 1. How often do you have a drink containing alcohol?: Monthly or less 2. How many drinks containing alcohol do you have on a typical day when you are drinking?: 1 or 2 3. How often do you have six or more drinks on one occasion?: Never Total Score: 1 CEDRIC-7 AMB Questionnaire CEDRIC-7 Date CEDRIC - 7 assessed: 12/14/23 Feeling nervous, anxious, or on edge: 1 = Several days Not being able to stop or control worryin = Several days Worrying too much about different things: 1 = Several days Trouble relaxin = Not at all Being so restless that it is hard to sit still: 0 = Not at all Becoming easily annoyed or irritable: 0 = Not at all Feeling afraid as if something awful might happen: 1 = Several days Total CEDRIC-7 score (0-4 normal; 5-9 mild; 10-14 moderate; 15-21 severe): 4 Source: Developed by Drs. Praful Kohler, Vonda Vasquez, Jj Dewitt and colleagues, with an educational bharti from [employer]. Physical exam (Primary Care) Vital Signs: Oxygen Delivery Method Room Air 12/14/23 11:04 Tobacco/Smoking Status: Tobacco use Status Tobacco use date assessed 12/14/23 12/14/23 11:06 Patient Tobacco Use Status Never used Tobacco 12/14/23 11:06 e-Cigarette/Vaping Use Never Used 12/14/23 11:06 PHQ-9: PHQ-9 Score PHQ-9: Total score 4 12/14/23 11:06 Depression Screening Interpretation: Positive Thrive Assessment: Date of Thrive Assessment Date Thrive assessed 12/14/23 12/14/23 11:06 Currently or been in a relationship where the following occur: no concerns reported Const General: alert; No acute distress Eyes Conjunctivae: conjunctivae normal Resp Auscultation: clear to auscultation bilaterally Cardio Rate: regular rate Rhythm: regular rhythm GI Inspection: Yes normal to inspection Extrem General: Yes normal to inspection and No edema Assessment and Plan Assessment & Plan (1) History of right breast cancer: Comment: 2006 lumpectomy and chemotherapy Code(s): Z85.3 - Personal history of malignant neoplasm of breast (2) HTN (hypertension): Code(s): I10 - Essential (primary) hypertension Qualifiers: Hypertension type: essential hypertension Qualified Code(s): I10 - Essential (primary) hypertension Plan: Continue with blood pressure medication. Decrease salt intake and exercise patient is on metoprolol 12.5 mg p.o. twice a day (3) Impaired fasting glucose: Code(s): R73.01 - Impaired fasting glucose Plan: Decrease the amount of carbohydrate intake, pasta, bread, rice and potatoes are all sugar and that is aside from all the sweet stuff, remember that fruits are good but they are Sweet also. (4) GERD (gastroesophageal reflux disease): Comment: Albarran's esophagus, April 2014 EGD moderate GERD 2019 Code(s): K21.9 - Gastro-esophageal reflux disease without esophagitis Plan: Avoid the foods that causes that usually spicy foods, tomato products, juices, coffee, soda and foods that your sensitive to. After eating do not lie down, allow 3-4 hours before in lie down. And keep the head of bed above 30 degrees to avoid the acid from going up. On omeprazole 20 mg once a day (5) Hypercholesterolemia: Code(s): E78.00 - Pure hypercholesterolemia, unspecified Plan: Avoid fried foods, chicken skin, eggs, butter margarine, pastries and meat. Be it pork or beef they have a lot of cholesterol LDL goal of less than 130 and triglyceride of less than 150 this has gotten better and diet controlled right now (6) History of pulmonary embolism: Code(s): Z86.711 - Personal history of pulmonary embolism Plan: Continue with anticoagulation Orders: Orders UA CC w/rflx Micro + Cult Today N39.41 - Urge incontinence, R30.0 - Dysuria Coding Level of Care Code Est Pt Level 4 (97656) Diagnoses History of right breast cancer Z85.3 Essential hypertension I10 Hypertension type: essential hypertension Impaired fasting glucose R73.01 GERD (gastroesophageal reflux disease) K21.9 Hypercholesterolemia E78.00 History of pulmonary embolism Z86.711
== END 2023-12-14 12:00 | disposition home or self-care (01) ==
PROVIDERS: PCP Internal Medicine; Visit Provider Internal Medicine
DX: I10 Essential (primary) hypertension (principal); R73.01 Impaired fasting glucose; K21.9 Gastro-esophageal reflux disease without esophagitis; Z85.3 Personal history of malignant neoplasm of breast; E78.00 Pure hypercholesterolemia, unspecified; Z86.711 Personal history of pulmonary embolism
CPT/HCPCS: 99214

== ENCOUNTER 2024-01-06 16:00 | Outpatient (REF) | payer MEDICARE, SELFPAY ==
[2024-01-06 18:25] LABS: CDiff Gene PCR NEGATIVE (Negative)
[2024-01-06 20:54] LABS: Leukocytes Stool Qualitative NEGATIVE (NEGATIVE)
== END 2024-01-06 16:01 | disposition home or self-care (01) ==
LOC: HO.LNP 16:00
PROVIDERS: Visit Provider Internal Medicine Medical Oncology
DX: R19.7 Diarrhea, unspecified (principal)
CPT/HCPCS: 87493; 89055

== ENCOUNTER 2024-03-16 14:03 | Outpatient (AMB) | payer MEDICARE, SELFPAY ==
[2024-03-16 14:05] VITALS: BP 118/72; PULSE 87; O2SAT 98; BMI 22.3
--- NOTE | 2024-03-16 14:05 | A.OFFPC_ITS ---
Vital Signs 03/16/24 14:05 Height 5 ft 3 in Weight 126 lb 0.8 oz BMI 22.3 BP 118/72 Blood Pressure Location Lt brachial Position Sitting Pulse 87 Pulse Source Pulse Oximeter Pulse Oximetry (%) 98 Oxygen Delivery Method Room Air Intake Visit Reasons: cholesterol, HTN Director Commercial Sales Required: No Allergies sulfamethoxazole [From Bactrim] Allergy (Severe, Verified 03/16/24 14:05) Itching trimethoprim [From Bactrim] Allergy (Severe, Verified 03/16/24 14:05) Itching cortisone [Cortisone] Allergy (Mild, Verified 03/16/24 14:05) PT STATES, hx TB IT COULD AFFECT CRYSTALS IN LUNG prochlorperazine [From Compazine] Allergy (Mild, Verified 03/16/24 14:05) LEG NUMBNESS hydrochlorothiazide Allergy (Unknown, Verified 03/16/24 14:05) RASH levofloxacin [Levaquin] Allergy (Unknown, Verified 03/16/24 14:05) Wakefulness, nausea, shaking Sulfa (Sulfonamide Antibiotics) Adverse Reaction (Intermediate, Verified 03/16/24 14:05) rash codeine Adverse Reaction (Unknown, Verified 03/16/24 14:05) NAUSEA/VOMITING chocolate Allergy (Unknown, Uncoded 03/16/24 14:05) severe headaches/vomiting Tobacco use date assessed: 03/16/24 Fall risk assessment: No Falls in past year Last assessed Fall Risk: 03/16/24 Dental Screening Dental Screen Date: 12/14/23 HPI cholesterol, HTN HPI Details 83-year-old female with a history hypert ension impaired glucose tolerance GERD hypercholesterolemia and history of pulmonary embolism last seen 12/13/2023 patient does have a history of breast cancer also mammogram is up-to-date 09/12/2022 review of the notes has seen hematology oncology 12/13/2023 for the overactive bladder - did see Dr. Barbosa and decline botox shots, decline wanting to see urology [facility] Medical History (Updated 03/16/24 @ 14:58 by Vinicius Burnett MD) Urinary incontinence Bilateral hip pain Venous insufficiency of both lower extremities Bilateral knee pain Arthritis of lumbosacral spine Pressure ulcer Chronic diarrhea TIA (transient ischemic attack) UTI (urinary tract infection) Hallucination Confusion Diarrhea Supratherapeutic INR Weakness Cognitive change Pernicious anemia Osteoporosis Peripheral neuropathy Impaired fasting glucose Irritable bowel syndrome Breast cancer Thrombocytopenia Hypomagnesemia Hx of hypercalcemia History of alcohol use B12 deficiency Fatty liver, alcoholic HTN (hypertension) Hx of metabolic acidosis GERD (gastroesophageal reflux disease) Hx of deep venous thrombosis Hx of tuberculosis History of pulmonary embolism History of right breast cancer Osteoarthritis of left knee Surgical History History of left knee surgery History of arthroplasty of left knee Hx of adenoidectomy History of esophagogastroduodenoscopy (EGD) History of evacuation of hematoma Hx of colonoscopy History of cataract surgery History of cystoscopy History of knee replacement procedure of right knee History of lumpectomy of right breast History of tonsillectomy H/O right mastectomy S/P SASHA-BSO (total abdominal hysterectomy and bilateral salpingo-oophorectomy) History of appendectomy Family History Father No problems noted. Mother No problems noted. Other No family history of cancer Social History Household Members: Spouse Housing: House Are you a primary acute care clinical nurse specialist to a significant other at home: No Do you presently have visiting nurse or other home services: No Alcohol intake: former Comment: aware of trip hazard Patient Tobacco Use Status: Never used Tobacco e-Cigarette/Vaping Use: Never Used Second Hand Smoke Exposure: No Advance Directives Date on File: 12/24/21 service: No Current occupational status: retired Cognitive needs: No Hearing needs: No Vision needs: Yes Questionnaire PHQ-9 Over the last 2 weeks, how often have you been bothered by any of the following problems? 1. Little interest or pleasure in doing things: several days 2. Feeling down, depressed, or hopeless: several days 3. Trouble falling or staying asleep, or sleeping too much: several days 4. Feeling tired or having little energy: several days 5. Poor appetite or overeating: not at all 6. Feeling bad about yourself - or that you are a failure or have let yourself or your family down: not at all 7. Trouble concentrating on things, such as reading the newspaper or watching television: not at all 8. Moving or speaking so slowly that other people could have noticed. Or the opposite - being so fidgety or restless that you have been moving around a lot more than usual: not at all 9. Thoughts that you would be better off or of hurting yourself in some way: not at all Total score: 4 Depression Screening Interpretation: Positive Depression Screening Done: Yes Source: Developed by Drs. Praful Kohler, Vonda Vasquez, Jj Dewitt and colleagues, with an educational bharti from [employer]. Thrive Questionnaire Date Thrive assessed: 12/14/23 I am a: Patient What is your living situation today?: I have a steady place to live Within the past 12 months, did the food you bought not last and you didn't have the money to get more?: Never true Within the past 12 months, did you worry whether your food would run out before you got money to buy more?: Never true Do you have trouble paying for medicines?: No Do you have trouble getting transportation to medical appointments?: No Do you have trouble paying your heating and electricity bill?: No Do you have trouble taking care of your child, family member or friend?: No Do you have trouble with day-to-day activities such as bathing, preparing meals, shopping, managing finances, etc.?: No Are you currently unemployed and looking for a job?: No Are you interested in more education?: No Currently or been in a relationship where the following occur: no concerns reported THRIVE Score: 0 AUDIT C Alcohol Use Questionnaire (AUDIT-C) 1. How often do you have a drink containing alcohol?: Monthly or less 2. How many drinks containing alcohol do you have on a typical day when you are drinking?: 1 or 2 3. How often do you have six or more drinks on one occasion?: Never Total Score: 1 CEDRIC-7 AMB Questionnaire CEDRIC-7 Date CEDRIC - 7 assessed: 12/14/23 Feeling nervous, anxious, or on edge: 1 = Several days Not being able to stop or control worryin = Several days Worrying too much about different things: 1 = Several days Trouble relaxin = Not at all Being so restless that it is hard to sit still: 0 = Not at all Becoming easily annoyed or irritable: 0 = Not at all Feeling afraid as if something awful might happen: 1 = Several days Total CEDRIC-7 score (0-4 normal; 5-9 mild; 10-14 moderate; 15-21 severe): 4 Source: Developed by Drs. Praful Kohler, Vonda Vasquez, Jj Dewitt and colleagues, with an educational bharti from [employer]. Physical exam (Primary Care) Vital Signs: Last Vital Signs Pulse 87 03/16/24 14:05 BP 118/72 03/16/24 14:05 Pulse Ox 98 03/16/24 14:05 Oxygen Delivery Method Room Air 03/16/24 14:05 BMI result Body Mass Index 22.3 Tobacco/Smoking Status: Tobacco use Status Tobacco use date assessed 03/16/24 03/16/24 14:06 Patient Tobacco Use Status Never used Tobacco 03/16/24 14:06 e-Cigarette/Vaping Use Never Used 03/16/24 14:06 PHQ-9: PHQ-9 Score PHQ-9: Total score 4 03/16/24 14:17 Depression Screening Interpretation: Positive Thrive Assessment: Date of Thrive Assessment Date Thrive assessed 12/14/23 03/16/24 14:06 Currently or been in a relationship where the following occur: no concerns reported Const General: alert; No acute distress Eyes Conjunctivae: conjunctivae normal Resp Auscultation: clear to auscultation bilaterally Cardio Rate: regular rate Rhythm: regular rhythm GI Inspection: Yes normal to inspection Extrem General: Yes normal to inspection and No edema Assessment and Plan Assessment & Plan (1) History of right breast cancer: Comment: 2006 lumpectomy and chemotherapy Code(s): Z85.3 - Personal history of malignant neoplasm of breast Plan: Patient continues to follow-up with Hematology-Oncology up-to-date with ma mmogram. (2) HTN (hypertension): Code(s): I10 - Essential (primary) hypertension Qualifiers: Hypertension type: essential hypertension Qualified Code(s): I10 - Essential (primary) hypertension Plan: Continue with blood pressure medication. Decrease salt intake and exercise on metoprolol 12.5 mg twice a day (3) GERD (gastroesophageal reflux disease): Comment: Albarran's esophagus, April 2014 EGD moderate GERD 2019 Code(s): K21.9 - Gastro-esophageal reflux disease without esophagitis Plan: Avoid the foods that causes that usually spicy foods, tomato products, juices, coffee, soda and foods that your sensitive to. After eating do not lie down, allow 3-4 hours before in lie down. And keep the head of bed above 30 degrees to avoid the acid from going up. (4) Osteopenia: Comment: August 2020, 09/12/2023 Code(s): M85.80 - Other specified disorders of bone density and structure, unspecified site Plan: Up-to-date with bone density (5) History of pulmonary embolism: Code(s): Z86.711 - Personal history of pulmonary embolism Plan: Continue with present anticoagulation. (6) Hypercholesterolemia: Code(s): E78.00 - Pure hypercholesterolemia, unspecified Plan: Avoid fried foods, chicken skin, eggs, butter margarine, pastries and meat. Be it pork or beef they have a lot of cholesterol LDL goal of less than 130 and triglyceride of less than 150. Orders: Orders Comprehensive Met. Panel 3 Months R73.01 - Impaired fasting glucose Thyroid Stimulating Hormone 3 Months R73.01 - Impaired fasting glucose Lipid Panel 3 Months E78.00 - Pure hypercholesterolemia, unspecified, R73.01 - Impaired fasting glucose Complete Blood Count Auto Diff 3 Months R73.01 - Impaired fasting glucose Free T4 (Free Thyroxine) 3 Months R73.01 - Impaired fasting glucose Medications: New alendronate 70 mg PO QWEEK 4 tabs 3RF M85.80 - Other specified disorders of bone density and structure, unspecified site Coding Level of Care Code Est Pt Level 4 (20600) Diagnoses History of right breast cancer Z85.3 Essential hypertension I10 Hypertension type: essential hypertension GERD (gastroesophageal reflux disease) K21.9 Osteopenia M85.80 History of pulmonary embolism Z86.711 Hypercholesterolemia E78.00
== END 2024-03-16 15:39 | disposition home or self-care (01) ==
PROVIDERS: PCP Internal Medicine; Visit Provider Internal Medicine
DX: I10 Essential (primary) hypertension (principal); K21.9 Gastro-esophageal reflux disease without esophagitis; M85.80 Other specified disorders of bone density and structure, unspecified site; Z86.711 Personal history of pulmonary embolism; Z85.3 Personal history of malignant neoplasm of breast; E78.00 Pure hypercholesterolemia, unspecified
CPT/HCPCS: 99214

== ENCOUNTER 2024-04-27 18:29 | Inpatient (IN) | payer MEDICARE, SELFPAY ==
--- NOTE | ~2024-04-27 | XR_ITS ---
EXAMINATION: PORTABLE CHEST 1 VIEW CLINICAL INFORMATION: sob. COMPARISON: 04/26/2023. TECHNIQUE: Portable frontal view of the chest was obtained. FINDINGS: The lungs are well expanded. Chronic appearing coarsened reticular markings are seen bilaterally with probable calcified granulomas in the lateral left lung. No focal infiltrate, effusion, edema, or pneumothorax. Cardiac and mediastinal silhouettes are within normal limits for technique. No acute bony abnormality seen. XR/XR chest 1V IMPRESSION: Chronic appearing changes similar to the 04/26/2023 study.
[2024-04-27 18:35] VITALS: BP 101/44; BP 96/46; PULSE 80; PULSE 84; RESP 15; TEMP 37; O2SAT 96; O2SAT 98; BMI 23.1
--- NOTE | 2024-04-27 19:03 | ECG_ITS ---
Test Reason : DYSPENA Blood Pressure : / mmHG Vent. Rate : 084 BPM Atrial Rate : 084 BPM P-R Int : 152 ms QRS Dur : 088 ms QT Int : 414 ms P-R-T Axes : 031 016 029 degrees QTc Int : 489 ms Normal sinus rhythm Normal ECG When compared with ECG of 26-APR-2023 16:33, No significant change was found Referred By: Madelin Hernandez Electronically Signed By:WESTON AMARO
[2024-04-27 20:05] VITALS: BP 95/45; PULSE 92; RESP 18; TEMP 37.1; O2SAT 96
--- NOTE | 2024-04-27 20:05 | MHC.EDTECH ---
PATIENT EKG TAKEN AND WAS READ BY PROVIDER ,BLOOD DRAWN AND SENT TO LAB ,PATIENT WAS ASSISTED UNTO BED JON ,VOID KELLIE CARE GIVEN ,PATIENT A& O ,PATIENT AT BEDSIDE .
[2024-04-27 20:06] LABS: MANUAL DIFF FLAG NO
[2024-04-27 20:08] LABS: Eosinophils Percent Auto 0.9 % (0-4); Imm Gran Abs Auto 0.01 X10*3/uL (0.00-0.03); Imm Gran Pct Auto 0.2 % (0.0-0.4); Lymphocytes Percent Auto 31.9 % (20-40)
[2024-04-27 20:12] LABS: Basophils Percent Auto 0.9 % (0-2); Lymphocytes Absolute Auto 1.4 X10*3/uL (1.2-4.9); Mean Corpuscular HGB Conc 30.3 g/dl (31.0-35.0); Mean Corpuscular Hemoglobin 27.2 pg (27.0-33.0); Mean Corpuscular Volume 89.7 fL (80.0-98.0); Mean Platelet Volume 10.1 fL (9.4-12.3); Monocytes Absolute Auto 0.6 X10*3/uL (0.1-1.2); Monocytes Percent Auto 12.9 % (2-11); Neutrophils Absolute Auto 2.3 x10*3/uL (2.0-8.3); Neutrophils Percent Auto 53.2 % (45-73); Platelet Count 185 X10*3/uL (160-400); Red Blood Count 2.24 X10*6/uL (4.20-5.50); Red Cell Distribution Width 18.5 % (11.0-16.0); White Blood Count 4.3 X10*3/uL (4.8-10.8)
[2024-04-27 20:18] LABS: Hematocrit 20.1 % (37.0-47.0); Hemoglobin 6.1 g/dl (12.0-16.0)
--- NOTE | 2024-04-27 20:25 | ED_ITS ---
HPI - General Adult General Chief complaint: Dyspnea Stated complaint: exertional SOB and upper back pain x1 month Time Seen by Provider: 04/27/24 19:53 Source: patient and EMS Mode of arrival: EMS Limitations: no limitations History of Present Illness ED Provider: DR. Jack HPI narrative: 83-year-old female came in with her for evaluation of generalized weakness, exertional dyspnea, and feeling dizzy and unsteady on her feet with risk of falling. Started to have more exertional dyspnea with exertion faster than her usual, also noted that the patient is been dizzy and weak very unsteady on her feet with risk of falling patient declined having falls recently. No abdominal pain. No chest pain, no headache, no blurry vision, no obvious blood in the stool or in the urine, no vomiting. No fever, no chills. Related Data Home Medications ?Medication ?Instructions ?Recorded ?Confirmed omeprazole 20 mg capsule,delayed 20 mg PO DAILY@0630 01/08/22 04/27/24 release rivaroxaban 20 mg tablet (Xarelto) 20 mg PO BEDTIME 04/27/24 04/27/24 Previous Rx's ?Medication ?Instructions ?Recorded right mastectomy bra #2 ea 10/22/22 folic acid 1 mg tablet 1 mg PO DAILY #90 tabs 09/02/23 gabapentin 300 mg capsule 300 mg PO BEDTIME 90 days #90 caps 09/02/23 quetiapine 25 mg tablet (Seroquel) 25 mg PO DAILY #90 tabs 12/05/23 metoprolol tartrate 25 mg tablet 12.5 mg (1/2 x 25 mg) PO BID 90 03/03/24 days #90 tabs Allergies Allergy/AdvReac Type Severity Reaction Status Date / Time sulfamethoxazole Allergy Severe Itching Verified 04/27/24 18:46 [From Bactrim] trimethoprim [From Bactrim] Allergy Severe Itching Verified 04/27/24 18:46 cortisone [Cortisone] Allergy Mild PT STATES, Verified 04/27/24 18:46 hx TB IT COULD AFFECT CRYSTALS IN LUNG prochlorperazine Allergy Mild LEG Verified 04/27/24 18:46 [From Compazine] NUMBNESS hydrochlorothiazide Allergy Unknown RASH Verified 04/27/24 18:46 levofloxacin [Levaquin] Allergy Unknown Wakefulness, Verified 04/27/24 18:46 nausea, shaking Sulfa (Sulfonamide AdvReac Intermediate rash Verified 04/27/24 18:46 Antibiotics) codeine AdvReac Unknown NAUSEA/VOMI Verified 04/27/24 18:46 TING chocolate Allergy Unknown severe Uncoded 04/27/24 18:46 headaches/vomiting Review of Systems 2 Review of Systems: All other systems are reviewed and are negative Constitutional: Reports as per HPI and Reports no additional constitutional complaints Eyes: Reports as per HPI and Reports no additional eye complaints Reports system reviewed and no additional complaints, except as documented Cardiovascular: Reports as per HPI and Reports no additional cardiovascular complaints Respiratory: Reports as per HPI and Reports no additional respiratory complaints Gastrointestinal: Reports as per HPI and Reports no additional gastrointestinal complaints Genitourinary: Reports no additional female genitourinary complaints Musculoskeletal: Reports no additional musculoskeletal complaints Skin/Breast: Reports system reviewed and no additional complaints, except as docu Psychiatric: Reports no additional psychiatric complaints Endocrine: Reports no additional endocrine complaints Hematologic/Lymphatic: Reports no additional hematologic/lymphatic complaints Allergic/Immunologic: Reports no additional allergic/immunologic complaints Reports system reviewed and no additional complaints, except as documented and Reports Abnormal speech present [facility] Past Medical History Medical History Urinary incontinence Bilateral hip pain Venous insufficiency of both lower extremities Bilateral knee pain Arthritis of lumbosacral spine Pressure ulcer Chronic diarrhea TIA (transient ischemic attack) UTI (urinary tract infection) Hallucination Confusion Diarrhea Supratherapeutic INR Weakness Cognitive change Pernicious anemia Osteoporosis Peripheral neuropathy Impaired fasting glucose Irritable bowel syndrome Breast cancer Thrombocytopenia Hypomagnesemia Hx of hypercalcemia History of alcohol use B12 deficiency Fatty liver, alcoholic HTN (hypertension) Hx of metabolic acidosis GERD (gastroesophageal reflux disease) Hx of deep venous thrombosis Hx of tuberculosis History of pulmonary embolism History of right breast cancer Osteoarthritis of left knee Surgical History History of left knee surgery History of arthroplasty of left knee Hx of adenoidectomy History of esophagogastroduodenoscopy (EGD) History of evacuation of hematoma Hx of colonoscopy History of cataract surgery History of cystoscopy History of knee replacement procedure of right knee History of lumpectomy of right breast History of tonsillectomy H/O right mastectomy S/P SASHA-BSO (total abdominal hysterectomy and bilateral salpingo-oophorectomy) History of appendectomy Family History Family History Father No problems noted. Mother No problems noted. Other No family history of cancer Social History Social History Household Members: Spouse Housing: House Are you a primary care information associate to a significant other at home: No Do you presently have visiting nurse or other home services: No Alcohol intake: former Comment: aware of trip hazard Patient Tobacco Use Status: Never used Tobacco Smoked in Last 30 Days: No e-Cigarette/Vaping Use: Never Used Second Hand Smoke Exposure: No Use of substances other than those prescribed or required for medical reasons: No Advance Directives: Yes Advance Directives on File: Yes Advance Directives Date on File: 12/24/21 Do you have a plan to hurt others: No Plan service: No Current occupational status: retired Cognitive needs: No Hearing needs: No Vision needs: Yes Physical Exam ED Vital Signs: Vital Signs - 24 hr 04/27/24 18:35 04/27/24 20:05 Temperature 98.6 F 98.7 F Pulse Rate 84 92 Respiratory Rate 15 18 Blood Pressure 101/44 L 95/45 L Pulse Oximetry 96 96 Oxygen Delivery Method Room Air Room Air BMI result Body Mass Index 23.1 Vital signs have been reviewed and appear to be correct. Blood pressure elevated. Heart rate normal. Respiratory rate normal. Temperature normal. Oxygen saturation normal. Appearance: Pale, Alert. Oriented X3. No acute distress. Head: Normal external exam. Normocephalic. Atraumatic. No Burt signs noted. No raccoon eyes noted Eyes: PERRLA. EOMI. Conjunctiva and sclera normal. Eyelids normal. ENT: TM's Normal. Pharynx normal. Uvula midline. Moist mucous membranes. No trismus noted. No drooling noted. No muffled voice noted. Neck: Normal inspection. Neck supple. FROM. No adenopathy. Thyroid Normal. No meningeal signs. No neck mass noted. CVS: Normal heart rate and rhythm. Heart sound normal. No murmurs noted. Pulses normal throughout. Respiratory: No respiratory distress. Painless inspiration. Breath sounds normal. No wheezes/rales/rhonchi noted. Chest nontender. No accessory muscle usage noted or decreased air movement noted. Abdomen: Soft and nontender. Bowel sounds normal in all 4 quadrants. No distention noted. No organomegaly noted. No visible injury noted. Back: No CVA tenderness. Full range of motion noted. Skin: Skin warm and dry. Normal skin color. Normal skin turgor. No rashes/lesions/lacerations noted. Extremities: No lower extremity edema. Extremities exhibit normal range of motion. Extremities nontender. Neuro: Oriented X 3. Cranial nerve exam: II-XII are grossly intact No motor deficit. No sensory deficit. Reflexes normal. Course Reevaluation(s) Reevaluation #1: Generalized weakness, feeling dizzy, with anemia. No obvious source of bleeding or gross hemorrhage. Plan to transfuse 2 units of blood. Time: 20:29 Medical Decision Making Lab Data 04/27/24 20:02 04/27/24 20:02 Labs: Lab Results 04/27/24 04/27/24 04/27/24 Range/Units 20:02 20:21 20:40 WBC 4.3 L (4.8-10.8) X10*3/uL RBC 2.24 L D (4.20-5.50) X10*6/uL Hgb 6.1 L* D (12.0-16.0) g/dl Hct 20.1 L* D (37.0-47.0) % MCV 89.7 (80.0-98.0) fL MCH 27.2 (27.0-33.0) pg MCHC 30.3 L (31.0-35.0) g/dl RDW 18.5 H (11.0-16.0) % Plt Count 185 (160-400) X10*3/uL MPV 10.1 (9.4-12.3) fL Immature Gran % (Auto) 0.2 (0.0-0.4) % Neut % (Auto) 53.2 (45-73) % Lymph % (Auto) 31.9 (20-40) % [place] % (Auto) 12.9 H (2-11) % Eos % (Auto) 0.9 (0-4) % Baso % (Auto) 0.9 (0-2) % Lymph # (Auto) 1.4 (1.2-4.9) X10*3/uL [place] # (Auto) 0.6 (0.1-1.2) X10*3/uL Eos # (Auto) 0.0 (0.0-0.4) X10*3/uL Baso # (Auto) 0.0 (0.0-0.2) X10*3/uL Abs Immat Gran (auto) 0.01 (0.00-0.03) X10*3/uL Absolute Neuts (auto) 2.3 (2.0-8.3) x10*3/uL Absolute Nucleated RBC 0.000 (0.0-0.012) X10*3/uL Nucleated RBC % (auto) 0.0 (0.0-0.2) /100WBC Sodium 142 (135-145) mmol/L Potassium 4.2 (3.3-5.1) mmol/L Chloride 112 H (96-108) mmol/L Carbon Dioxide 18 L (22-29) mmol/L Anion Gap 16 (12-20) BUN 11 (9-16) mg/dL Creatinine 1.12 (0.5-1.4) mg/dL Estim Creat Clear Calc 34.0 Estimated GFR 47 Random Glucose 107 (60-115) mg/dL Calcium 8.2 L D (8.4-10.2) mg/dL Magnesium 2.0 (1.6-2.6) mg/dL Total Bilirubin 0.3 (0.0-1.0) mg/dL AST 22 (5-31) U/L ALT 7 (0-31) U/L Alkaline Phosphatase 95 (39-117) U/L Troponin I High Sens 3.4 (<3.5-17.0) ng/L B-Natriuretic Peptide 152 H (<100) pg/mL Total Protein 6.1 L (6.5-8.0) g/dL Albumin 3.0 L (3.5-5.0) g/dL Urine Color Yellow Urine Appearance Clear Urine pH 6.5 (5.0-9.0) Ur Specific [place] <= 1.005 (1.005-1.025) Urine Protein Negative (Neg-Trace) mg/dL Urine Glucose (UA) Negative (Negative) mg/dL Urine Ketones Negative (Negative) mg/dL Urine Blood Negative (Negative) Urine Nitrite Negative (Negative) Ur Leukocyte Esterase Small (1+) H (Negative) Urine RBC 0-2 (0-2) /HPF Urine WBC 6-10 H (0-5) /HPF Ur Squamous Epith Cells 0-2 (0-2) /HPF Urine Bacteria 4+ (None Seen) Hyaline Casts 0-2 (0-2) /LPF Stool Occult Blood NEGATIVE (NEGATIVE) Crossmatch See Detail Discharge Plan Discharge Clinical Impression: Generalized weakness, Anemia Patient Disposition: Admitted As Inpatient
[2024-04-27 20:27] LABS: Alanine Aminotransferase 7 U/L (0-31); Alkaline Phosphatase 95 U/L (39-117); Anion Gap 16 (12-20); Aspartate Amino Transferase 22 U/L (5-31); Bilirubin Total 0.3 mg/dL (0.0-1.0); Blood Urea Nitrogen 11 mg/dL (9-16); Calcium 8.2 mg/dL (8.4-10.2); Carbon Dioxide 18 mmol/L (22-29); Chloride 112 mmol/L (96-108); Estimated Glomerular Filt Rate 47; Glucose Random 107 mg/dL (60-115); Potassium 4.2 mmol/L (3.3-5.1); Sodium 142 mmol/L (135-145); Total Protein 6.1 g/dL (6.5-8.0)
[2024-04-27 20:28] LABS: B Type Natriuretic Peptide 152 pg/mL (<100)
[2024-04-27 20:30] LABS: Troponin-I High Sensitivity 3.4 ng/L (<3.5-17.0)
[2024-04-27 20:35] LABS: Appearance Urine Clear; Color Urine Yellow; Glucose Urine UA Negative (Negative); Leukocyte Esterase Urine Small (1+) (Negative); Nitrite Urine Negative (Negative); PH 6.5 (5.0-9.0); Specific Gravity - Urine <= 1.005 (1.005-1.025); UMIC TRIGGER UACC YES; Urine Blood Negative (Negative); Urine Ketones Negative (Negative); Urine Protein Negative (Neg-Trace)
[2024-04-27 20:40] LABS: Bacteria Urine 4+ (None Seen); Hyaline Casts Urine 0-2 /LPF (0-2); RBC Urine 0-2 /HPF (0-2); Squamous Epithelial Cell Urine 0-2 /HPF (0-2); UACC Culture Trigger YES
--- NOTE | 2024-04-27 20:43 | MHC.EDTECH ---
PATIENT TYPE AND SCREEN DRAWN ,URINE SAMPLE COLLECTED AND SENT TO LAB ,PATIENT BELONINGS LIST DONE ,PATIENT IS HOOKED UP TO [facility] ,PATIENT AT BEDSIDE .
[2024-04-27 20:45] LABS: OBS Int Ctl Valid YES; OBS1 NEGATIVE (NEGATIVE)
--- NOTE | 2024-04-27 21:13 | P.HPHOSP_ITS ---
History of Present Illness Date of Service: 04/27/24 Chief Complaint: Weakness This is a 82-year-old female with pertinent history of mood disorder, history of PE on Xarelto, Alzheimer's dementia, gastroesophageal reflux disease, recurrent UTI, history of breast cancer (2006) in remission, peripheral neuropathy who presents to the emergency department for evaluation of weakness. Patient states she has been weak for about 3-4 weeks now. Also has been having dyspnea which is worse with exertion. Does not use a cane or a walker to ambulate. Patient states that about 3 weeks ago she noticed black stools the lasted for about 10- 14 days. This has never happened before. She denies abdominal discomfort, nausea, vomiting, fever or chills. No chest discomfort, shortness of breath, changes in urinary or bowel habits. Patient denies cathryn red blood in stool, hematemesis or hematuria. In the emergency department, hemoglobin was found to be 6.1 and 2 unit PRBC ordered Review of Systems 2 Constitutional: Constitutional: Reports fatigue, Reports lethargy, Reports malaise and Reports weakness Cardiovascular: Cardiovascular: Reports no additional cardiovascular complaints Respiratory: Respiratory: Reports no additional respiratory complaints Gastrointestinal: Gastrointestinal: Reports melena Genitourinary: Genitourinary: Reports no additional female genitourinary complaints Neurologic: Reports weakness Endocrine: Endocrine: Reports fatigue PMFSH Medical History Urinary incontinence Bilateral hip pain Venous insufficiency of both lower extremities Bilateral knee pain Arthritis of lumbosacral spine Pressure ulcer Chronic diarrhea TIA (transient ischemic attack) UTI (urinary tract infection) Hallucination Confusion Diarrhea Supratherapeutic INR Weakness Cognitive change Pernicious anemia Osteoporosis Peripheral neuropathy Impaired fasting glucose Irritable bowel syndrome Breast cancer Thrombocytopenia Hypomagnesemia Hx of hypercalcemia History of alcohol use B12 deficiency Fatty liver, alcoholic HTN (hypertension) Hx of metabolic acidosis GERD (gastroesophageal reflux disease) Hx of deep venous thrombosis Hx of tuberculosis History of pulmonary embolism History of right breast cancer Osteoarthritis of left knee Family History Father No problems noted. Mother No problems noted. Other No family history of cancer Surgical History History of left knee surgery History of arthroplasty of left knee Hx of adenoidectomy History of esophagogastroduodenoscopy (EGD) History of evacuation of hematoma Hx of colonoscopy History of cataract surgery History of cystoscopy History of knee replacement procedure of right knee History of lumpectomy of right breast History of tonsillectomy H/O right mastectomy S/P SASHA-BSO (total abdominal hysterectomy and bilateral salpingo-oophorectomy) History of appendectomy Social History Household Members: Spouse Housing: House Are you a primary child care center administrator to a significant other at home: No Do you presently have visiting nurse or other home services: No Alcohol intake: former Comment: aware of trip hazard Patient Tobacco Use Status: Never used Tobacco Smoked in Last 30 Days: No e-Cigarette/Vaping Use: Never Used Second Hand Smoke Exposure: No Use of substances other than those prescribed or required for medical reasons: No Advance Directives: Yes Advance Directives on File: Yes Advance Directives Date on File: 12/24/21 Do you have a plan to hurt others: No Plan service: No Current occupational status: retired Cognitive needs: No Hearing needs: No Vision needs: Yes Meds Allergies Allergy/AdvReac Type Severity Reaction Status Date / Time sulfamethoxazole Allergy Severe Itching Verified 04/27/24 18:46 [From Bactrim] trimethoprim [From Bactrim] Allergy Severe Itching Verified 04/27/24 18:46 cortisone [Cortisone] Allergy Mild PT STATES, Verified 04/27/24 18:46 hx TB IT COULD AFFECT CRYSTALS IN LUNG prochlorperazine Allergy Mild LEG Verified 04/27/24 18:46 [From Compazine] NUMBNESS hydrochlorothiazide Allergy Unknown RASH Verified 04/27/24 18:46 levofloxacin [Levaquin] Allergy Unknown Wakefulness, Verified 04/27/24 18:46 nausea, shaking Sulfa (Sulfonamide AdvReac Intermediate rash Verified 04/27/24 18:46 Antibiotics) codeine AdvReac Unknown NAUSEA/VOMI Verified 04/27/24 18:46 TING chocolate Allergy Unknown severe Uncoded 04/27/24 18:46 headaches/vomiting Active Medications: Current Medications Sodium Chloride (Ns) 100 mls @ 100 mls/hr IV ONCE ONE Stop: 04/27/24 21:23 Sodium Chloride (Ns) 100 mls @ 100 mls/hr IV ONCE ONE Stop: 04/27/24 21:23 Home Medications ?Medication ?Instructions ?Recorded ?Confirmed ?Last Taken ?Type omeprazole 20 mg capsule,delayed 20 mg PO DAILY@0630 01/08/22 04/27/24 04/27/24 18:30 History release rivaroxaban 20 mg tablet (Xarelto) 20 mg PO BEDTIME 04/27/24 04/27/24 04/27/24 18:30 History Physical Exam 2 Vital Signs and Narrative: Vital Signs: Last Vital Signs Temp 98.7 F 04/27/24 20:05 Pulse 92 04/27/24 20:05 Resp 18 04/27/24 20:05 BP 95/45 L 04/27/24 20:05 Pulse Ox 96 04/27/24 20:05 O2 Del Method Room Air 04/27/24 20:05 BMI result Body Mass Index 23.1 Elderly female lying in bed in no distress Neck supple, no JVD Regular rate and rhythm, S1-S2 heard Regular breath sounds bilaterally, no wheezing or crackles appreciated Abdomen soft nontender, no guarding, no rigidity Patient is awake, alert and oriented to self, place and person, no focal motor weakness Psych: Normal mood No pedal edema Results Labs 04/27/24 20:02 04/27/24 20:02 Labs: Laboratory Results - last 24 hr 04/27/24 04/27/24 04/27/24 20:02 20:21 20:40 MCV 89.7 MCH 27.2 MCHC 30.3 L RDW 18.5 H Plt Count 185 MPV 10.1 Immature Gran % (Auto) 0.2 Neut % (Auto) 53.2 Lymph % (Auto) 31.9 [place] % (Auto) 12.9 H Eos % (Auto) 0.9 Baso % (Auto) 0.9 Lymph # (Auto) 1.4 [place] # (Auto) 0.6 Eos # (Auto) 0.0 Baso # (Auto) 0.0 Abs Immat Gran (auto) 0.01 Absolute Neuts (auto) 2.3 Absolute Nucleated RBC 0.000 Nucleated RBC % (auto) 0.0 Anion Gap 16 Estim Creat Clear Calc 34.0 Estimated GFR 47 Random Glucose 107 Calcium 8.2 L D Magnesium 2.0 Total Bilirubin 0.3 AST 22 ALT 7 Alkaline Phosphatase 95 Troponin I High Sens 3.4 B-Natriuretic Peptide 152 H Total Protein 6.1 L Albumin 3.0 L Urine Color Yellow Urine Appearance Clear Urine pH 6.5 Ur Specific [place] <= 1.005 Urine Protein Negative Urine Glucose (UA) Negative Urine Ketones Negative Urine Blood Negative Urine Nitrite Negative Ur Leukocyte Esterase Small (1+) H Urine RBC 0-2 Urine WBC 6-10 H Ur Squamous Epith Cells 0-2 Urine Bacteria 4+ Hyaline Casts 0-2 Stool Occult Blood NEGATIVE Crossmatch See Detail Imaging Radiologist's Impressions: Impressions Chest X-Ray 04/27/24 19:15 IMPRESSION: Chronic appearing changes similar to the 04/26/2023 study. Assessment and Plan (1) Symptomatic anemia: Status: Acute Plan This is a 82-year-old female with pertinent history of mood disorder, history of PE on Xarelto, dementia, gastroesophageal reflux disease, recurrent UTI, history of breast cancer (2006) in remission who was brought to the emergency department for evaluation of confusion. #. Symptomatic anemia with concern for acute GI bleed: Will admit patient with cardiac monitoring. 2 unit PRBC being ordered in the ER. Closely monitor H&H. Consulting Gastroenterology, appreciate assistance. Initiating IV Protonix. Hold Xarelto. Obtaining iron profile, B12 and folate #. Alzheimer's Dementia. Maintain sleep-wake cycle #. Peripheral Neuropathy on gabapentin #. History of PE/DVT. Hold Xarelto as above #. Mood disorder: Continue home mood stabilizers #. Gastroesophageal reflux disease: On IV Protonix as above #. Asymptomatic bacteriuria: No indication for treatment Med rec pending DVT prophylaxis: Mechanical Full code NPO Admit as inpatient and will require two night minimum hospital stay for close monitoring of H&H (as above), which is not possible in a lesser acute setting. Specialist consult pending Quality Stroke Does the patient have a stroke diagnosis?: No VTE Prior VTE?: No VTE Risk Level:: Medical - moderate - high VTE Device Contraindication: N/A - Device Ordered VTE Drug Contraindication: Treatment Not Indicated
--- NOTE | 2024-04-27 21:20 | PHA.MEDREC ---
Pharmacy Consult ? Medication Reconciliation Pharmacy has completed the medication reconciliation. Confirmed medications with patient. She confirmed her Rivaroxaban 20mg tabs nightly. She confirmed she took her meds tonight around supper time
--- NOTE | 2024-04-27 21:53 | PC.NURSE ---
lab work done for blood transfusion, just got a call for redraw. phlebotomy at bedside for draws. transfusion delayed until lab work completed again
[2024-04-27] MEDS: Pantoprazole Sodium 40 MG/10 ML VIAL IVPUSH (22:32)
[2024-04-27] MEDS: Lactated Ringers 500 ML IV (22:57)
[2024-04-27 22:59] VITALS: BP 112/56; PULSE 85; RESP 15; TEMP 36.6; O2SAT 98
[2024-04-28] VITALS (13 sets, daily range): BP systolic 128–175; BP diastolic 62–90; PULSE 84–97; RESP 17–20; TEMP 36.2–37.3; O2SAT 95–100; BMI 21.8
[2024-04-28 00:57] LABS: Iron 23 mcg/dL (30-160); Percent Iron Saturation 7 % (15-50); Total Iron Binding Capacity 315 mcg/dL (228-428); Unsaturated Iron Binding 292 ug/dL
[2024-04-28] MEDS: 0.9 % Sodium Chloride Flush 3 ML SYRINGE IVFLUSH ×3 (03:40→17:10)
[2024-04-28] MEDS: Pantoprazole Sodium 40 MG/10 ML VIAL IVPUSH ×2 (05:27→17:10)
--- NOTE | 2024-04-28 07:24 | P.PNIM_ITS ---
Subjective Subjective Date of Service: 04/28/24 Interval History: F/u acute blood loss anemia, melana No sob, no chest pain Physical Exam 2 Vital Signs: Vital Signs: Last Vital Signs Temp 98.4 F 04/28/24 04:07 Pulse 91 04/28/24 04:07 Resp 18 04/28/24 04:07 BP 159/71 H 04/28/24 04:07 Pulse Ox 99 04/28/24 03:27 O2 Del Method Room Air 04/28/24 03:27 BMI result Body Mass Index 21.8 General: AO X 3, no acute distress Resp: CTA bilateral CVS: S1,S2,RRR GI: +BS, NT, no distention Skin: No rash Neuro: motor grossly intact Psych: appropriate affect Objective Data Active Medications Acetaminophen (Acetaminophen 325 Mg Tablet) 650 mg PO Q6H PRN PRN Reason: Pain, Mild (Pain Scale 1-3), fever or headache Calcium Carbonate (Calcium Carbonate 750 Mg Tab.Chew) 750 mg PO Q4H PRN PRN Reason: Heartburn Magnesium Hydroxide (Milk Of Magnesia 30 Ml Oral.Susp) 30 ml PO DAILY PRN PRN Reason: Constipation Melatonin (Melatonin 3 Mg Tablet) 6 mg PO BEDTIME PRN PRN Reason: Insomnia Ondansetron HCl (Ondansetron Hcl 4 Mg/2 Ml Vial) 4 mg IVPUSH Q8H PRN PRN Reason: Nausea and Vomiting Pantoprazole Sodium (Pantoprazole Sodium 40 Mg/10 Ml Vial) 40 mg IVPUSH BID@0630,1630 [facility] Last Admin: 04/28/24 05:27 Dose: 40 mg Documented By: RUFINA Sodium Chloride (0.9 % Sodium Chloride Flush 3 Ml Syringe) 3 ml IVFLUSH QSHIFT [facility] Last Admin: 04/28/24 03:40 Dose: 3 ml Documented By: RUFINA Labs 04/28/24 07:20 04/28/24 07:20 Labs: Laboratory Results - last 24 hr 04/27/24 04/27/24 04/27/24 20:02 20:21 20:40 MCV 89.7 MCH 27.2 MCHC 30.3 L RDW 18.5 H Plt Count 185 MPV 10.1 Immature Gran % (Auto) 0.2 Neut % (Auto) 53.2 Lymph % (Auto) 31.9 [place] % (Auto) 12.9 H Eos % (Auto) 0.9 Baso % (Auto) 0.9 Lymph # (Auto) 1.4 [place] # (Auto) 0.6 Eos # (Auto) 0.0 Baso # (Auto) 0.0 Abs Immat Gran (auto) 0.01 Absolute Neuts (auto) 2.3 Absolute Nucleated RBC 0.000 Nucleated RBC % (auto) 0.0 Anion Gap 16 Estim Creat Clear Calc 34.0 Estimated GFR 47 Random Glucose 107 Calcium 8.2 L D Magnesium 2.0 Iron 23 L TIBC 315 % Saturation 7 L Unsat Iron Binding 292 Total Bilirubin 0.3 AST 22 ALT 7 Alkaline Phosphatase 95 Troponin I High Sens 3.4 B-Natriuretic Peptide 152 H Total Protein 6.1 L Albumin 3.0 L Urine Color Yellow Urine Appearance Clear Urine pH 6.5 Ur Specific [place] <= 1.005 Urine Protein Negative Urine Glucose (UA) Negative Urine Ketones Negative Urine Blood Negative Urine Nitrite Negative Ur Leukocyte Esterase Small (1+) H Urine RBC 0-2 Urine WBC 6-10 H Ur Squamous Epith Cells 0-2 Urine Bacteria 4+ Hyaline Casts 0-2 Stool Occult Blood NEGATIVE Blood Type Antibody Screen Antibody Identification Crossmatch Crossmatch ([facility]) Blood Bank Comment 04/27/24 22:07 MCV MCH MCHC RDW Plt Count MPV Immature Gran % (Auto) Neut % (Auto) Lymph % (Auto) [place] % (Auto) Eos % (Auto) Baso % (Auto) Lymph # (Auto) [place] # (Auto) Eos # (Auto) Baso # (Auto) Abs Immat Gran (auto) Absolute Neuts (auto) Absolute Nucleated RBC Nucleated RBC % (auto) Anion Gap Estim Creat Clear Calc Estimated GFR Random Glucose Calcium Magnesium Iron TIBC % Saturation Unsat Iron Binding Total Bilirubin AST ALT Alkaline Phosphatase Troponin I High Sens B-Natriuretic Peptide Total Protein Albumin Urine Color Urine Appearance Urine pH Ur Specific [place] Urine Protein Urine Glucose (UA) Urine Ketones Urine Blood Urine Nitrite Ur Leukocyte Esterase Urine RBC Urine WBC Ur Squamous Epith Cells Urine Bacteria Hyaline Casts Stool Occult Blood Blood Type O Positive Antibody Screen POSITIVE Antibody Identification Inconclusive Crossmatch See Detail Crossmatch ([facility]) See Detail Blood Bank Comment Specimen Assessment and Plan (1) Symptomatic anemia: Status: Acute (2) Generalized weakness: Status: Acute (3) GIB (gastrointestinal bleeding): Status: Acute Plan This is a 82-year-old female with pertinent history of mood disorder, history of PE on Xarelto, dementia, gastroesophageal reflux disease, recurrent UTI, history of breast cancer (2006) in remission who was brought to the emergency department for weakness and found to be anemic with melana Symptomatic blood loss anemia with melana on xarelto -hold Xarelto -Getting 2 units RBC, repeat H/H improved hgb 8.7 from 6.1 -IV PPI -GI consultation -liquid diet - B12 and folate normal Alzheimer's Dementia, stable no behavior issues Peripheral Neuropathy on gabapentin History of PE/DVT. Hold Xarelto as above HTN--uncontrolled, increase metoprolol Mood disorder: Continue seroqeul GERD On IV Protonix as above Possible UTI --Po Ceftin for 3 days DVT prophylaxis: Mechanical Full code NPO need for inpatient: acute blood loss anemia d/t gib, been transfused and may need further testing Quality Stroke Does the patient have a stroke diagnosis?: No VTE Prior VTE?: No VTE Risk Level:: Medical - moderate - high VTE Device Contraindication: N/A - Device Ordered VTE Drug Contraindication: Treatment Not Indicated
[2024-04-28 07:44] LABS: MANUAL DIFF FLAG NO
[2024-04-28 08:00] LABS: Basophils Percent Auto 0.8 % (0-2); Eosinophils Percent Auto 0.6 % (0-4); Hematocrit 27.9 % (37.0-47.0); Hemoglobin 8.7 g/dl (12.0-16.0); Imm Gran Abs Auto 0.02 X10*3/uL (0.00-0.03); Imm Gran Pct Auto 0.4 % (0.0-0.4); Lymphocytes Absolute Auto 1.1 X10*3/uL (1.2-4.9); Lymphocytes Percent Auto 21.9 % (20-40); Mean Corpuscular HGB Conc 31.2 g/dl (31.0-35.0); Mean Corpuscular Hemoglobin 27.6 pg (27.0-33.0); Mean Corpuscular Volume 88.6 fL (80.0-98.0); Monocytes Absolute Auto 0.6 X10*3/uL (0.1-1.2); Monocytes Percent Auto 12.6 % (2-11); Neutrophils Absolute Auto 3.2 x10*3/uL (2.0-8.3); Neutrophils Percent Auto 63.7 % (45-73); Platelet Count 179 X10*3/uL (160-400); Red Blood Count 3.15 X10*6/uL (4.20-5.50); Red Cell Distribution Width 17.6 % (11.0-16.0); White Blood Count 5.1 X10*3/uL (4.8-10.8)
[2024-04-28 08:11] LABS: Anion Gap 13 (12-20); Blood Urea Nitrogen 12 mg/dL (9-16); Calcium 8.5 mg/dL (8.4-10.2); Carbon Dioxide 24 mmol/L (22-29); Chloride 109 mmol/L (96-108); Creatinine Clr Calc Pharmacy 38.1; Estimated Glomerular Filt Rate 53; Glucose Random 91 mg/dL (60-115); Potassium 4.1 mmol/L (3.3-5.1); Sodium 142 mmol/L (135-145)
[2024-04-28] MEDS: Metoprolol Tartrate 12.5 MG HALFTAB PO ×2 (08:37→12:42)
[2024-04-28 08:47] LABS: Folate 13.9 ng/mL (> or = 4.0); Vitamin B12 368 pg/mL (200-900)
--- NOTE | 2024-04-28 09:27 | MHC.CM.PN ---
IMM 04/28/24, Pt lives with her , she does not have home health services, but her has recently been in hosp and used home care from [facility]. She does not use DME, but said that they do have a cane and walker in the home. HCP on file and confirmed: Praful Fox, PCP is Dr. Burnett. Pt.'s will transport her home at DC, DCP: home, with services. CM to follow and assist with DC planning.
[2024-04-28] MEDS: cefuroxime axetiL 250 MG TABLET PO ×2 (12:43→21:35)
--- NOTE | 2024-04-28 14:48 | PM.EVENT ---
Event Note Date of Service: 04/28/24 Event Note: GI Consult-Full note dictated-History from patient, her RN, and the EMR. Imp: 83 yo female on Xarelto presenting a with a recent, but resolved, history of melena and a symptomatic anemia. It sounds like she may take an occasional NSAID at home and has one drink each evening. She had one or two BM's this morning but has had no signs of bleeding here and she feels better after her transfusions. She denies any new GI symptoms. She is on a daily omeprazole at home for GERD. Her last EGD and colonoscopy were approx 10 yrs ago. She appears quite stable now. Diff dx: PUD, gastritis, AVM, doubt neoplasm. Rec: EGD on 04/30/24. Full consent obtained from her for this, including risks of bleeding and perforation. Hold Xarelto in the meantime. Advance diet over the weekend and then NPO after midnight for the upper endo on 04/30. F/U labs. D/W patient in detail and she is comfortable with this plan. I did advise her to avoid all NSAIDs custodial once she is home. Thanks Time Spent With Patient Time: Total time managing care of this patient today ____ minutes.
--- NOTE | 2024-04-28 15:06 | MHC.SHP ---
Pre-Procedural Eval Section A - 24 Hr Update-Section A only Date of Service: 04/30/24 The patient is an INPATIENT: Yes The patient has been examined within 24 hours of the surgical procedure. The History & Physical has been completed within 30 days and I have reviewed it.: Yes Section B - Complete if H&P > 30 days Chief Complaint: Weakness Allergies: Allergies Allergy/AdvReac Type Severity Reaction Status Date / Time sulfamethoxazole Allergy Severe Itching Verified 04/27/24 18:46 [From Bactrim] trimethoprim [From Bactrim] Allergy Severe Itching Verified 04/27/24 18:46 cortisone [Cortisone] Allergy Mild PT STATES, Verified 04/27/24 18:46 hx TB IT COULD AFFECT CRYSTALS IN LUNG prochlorperazine Allergy Mild LEG Verified 04/27/24 18:46 [From Compazine] NUMBNESS hydrochlorothiazide Allergy Unknown RASH Verified 04/27/24 18:46 levofloxacin [Levaquin] Allergy Unknown Wakefulness, Verified 04/27/24 18:46 nausea, shaking Sulfa (Sulfonamide AdvReac Intermediate rash Verified 04/27/24 18:46 Antibiotics) codeine AdvReac Unknown NAUSEA/VOMI Verified 04/27/24 18:46 TING chocolate Allergy Unknown severe Uncoded 04/27/24 18:46 headaches/vomiting Plan I have reviewed the history and physical and performed a pertinent physical examination on my patient. No changes have occurred unless specified. Time Spent With Patient Time: Total time managing care of this patient today ____ minutes.
[2024-04-28] MEDS: Folic Acid 1 MG TABLET PO (17:10)
[2024-04-28] MEDS: QUEtiapine Fumarate 25 MG TABLET PO (17:10)
[2024-04-28] MEDS: Gabapentin 300 MG CAPSULE PO (21:34)
[2024-04-28] MEDS: Metoprolol Tartrate 25 MG TABLET PO (21:34)
[2024-04-28] MEDS: Acetaminophen 325 MG TABLET 650 MG PO (21:38)
[2024-04-29] VITALS (9 sets, daily range): BP systolic 132–174; BP diastolic 58–86; PULSE 82–93; RESP 17–20; TEMP 36.2–37.4; O2SAT 96–99
--- NOTE | 2024-04-29 01:26 | CONS_ITS ---
DATE OF SERVICE: 04/28/2024 REASON FOR CONSULTATION: History of melena and anemia. HISTORY OF PRESENT ILLNESS: The patient is and 83-year-old female who was in her usual state of health up until the past couple of weeks or so when she describes approximately 2 or 3 days of black stool. Subsequent to that, the black stool did resolve, but she has been left with weakness, which became more pronounced as time went on. She finally came to the ER, was found to be anemic with a hemoglobin of 6.1 compared to 12.3 back in November. Her BUN was 18. She is relatively hypotensive with a blood pressure of 95/45, which improved after resuscitation with fluids and transfusions. The patient is on chronic Xarelto in relation to previous pulmonary emboli. She does describe taking an occasional NSAID for a headache. She does have 1 alcoholic beverage each evening by her description. The patient is on chronic omeprazole in relation to reflux. She denies any recent increased heartburn, dysphagia, early satiety, nausea, nor vomiting. She denies any recent abdominal pain, jaundice, nor any unintentional weight loss. Prior to the several days of melena and subsequent to that, she has had no further signs of melena nor hematochezia. She did have a couple of brown stool this morning here in the hospital. This was confirmed by her nurse. She has had upper endoscopy and colonoscopy with Dr. 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 There was no sign of any ulcer disease. She also had a colonoscopy in 2011 with the removal of a small polyp. Biopsies from those procedures revealed gastric biopsies negative for H pylori. The colon polyp was a hyperplastic polyp. She denies any known family history of GI malignancy. MEDICATIONS: At home included folic acid, gabapentin, metoprolol, omeprazole, quetiapine, and Xarelto. Her medications here in the hospital include quetiapine, IV pantoprazole, Zofran, milk of magnesia, metoprolol, gabapentin, melatonin, folic acid, Ceftin, calcium carbonate, and acetaminophen. PAST MEDICAL HISTORY: Pulmonary emboli for which she is on Xarelto. Bilateral knee replacements. Hysterectomy. Appendectomy. Right mastectomy for breast cancer. She has a history of reflux. Colon polyps. History of UTI. Peripheral neuropathy. The chart describes that she has a history of some confusion and/or dementia, but on today's interview, she is quite lucid and answers all questions appropriately. She was oriented to person, place and year. She denies history of NC, diabetes, or stroke. SOCIAL HISTORY: She does not smoke. She has 1 drink each evening. She is . FAMILY HISTORY: Noncontributory. PHYSICAL EXAMINATION: GENERAL: The patient is a pleasant, alert, comfortable appearing female. SKIN: Warm and dry. Anicteric sclerae. Moist mucous membranes. NECK: Supple. ABDOMEN: Soft, nondistended, nontender without mass. EXTREMITIES: Without edema. REVIEW OF SYSTEMS: CONSTITUTIONAL: She has been feeling weak at home. Her appetite has been good. SKIN: No rash. No pruritus. CARDIAC: No chest pain. PULMONARY: No coughing or hemoptysis. GI: As above. URINARY: No dysuria. No hematuria. LABORATORY DATA: Hemoglobin 6.1 compared to 12.3 back in November. Normal MCV 90. Platelets 185,000. White blood cell count 4.3, hemoglobin this morning after transfusions was 8.7. Normal electrolytes. BUN 12, creatinine 1.0. Iron was 23 with an iron saturation of 7%. LFTs were normal. Albumin 3.0. B12 and folate levels were normal. Stool was Hemoccult negative. Chest x-ray did not show any acute changes. IMPRESSION: Given the patient's presentation, this sounds consistent with a relatively recent, but transient upper GI bleed. This may be in relation to occasional NSAID use and some alcohol in relation to her chronic use of Xarelto. In any event, there does not appear to be any ongoing bleeding and she appears quite stable. This most likely represents bleeding from either some peptic ulcer disease or erosive gastritis. I doubt this represents any type of neoplasm. She is on chronic omeprazole and therefore, I doubt this represents any significant esophagitis. At this point, since she appears stable, I think her diet can be advanced. I did recommend an upper endoscopy prior to discharge given that she has to go back on her Xarelto. Full consent was obtained for that, including risks of bleeding and perforation. If things remain stable, I would plan to do that on Tuesday, April 30. I would hold the Xarelto in the meantime. She will advance her diet over the weekend, but then be n.p.o. after midnight for the procedure. She will have followup laboratories as well. We did review that the upper endoscopy may very well be negative given that the bleeding was at least a week or 2 ago. If the upper endoscopy is nonrevealing, I would then hold off on a colonoscopy for the time being given the clinical history of melena, previous colonoscopies that were not particularly revealing, and the clinical history at the present time. The patient was comfortable with this plan. Thank you for the consultation. MD WILMER Viveros/JOSÉ MIGUEL / [id number]
[2024-04-29] MEDS: Pantoprazole Sodium 40 MG/10 ML VIAL IVPUSH ×2 (05:35→15:47)
[2024-04-29 06:42] LABS: MANUAL DIFF FLAG NO
[2024-04-29 06:53] LABS: Basophils Absolute Auto 0.1 X10*3/uL (0.0-0.2); Eosinophils Absolute Auto 0.1 X10*3/uL (0.0-0.4); Eosinophils Percent Auto 1.3 % (0-4); Hematocrit 29.4 % (37.0-47.0); Hemoglobin 9.4 g/dl (12.0-16.0); Imm Gran Abs Auto 0.02 X10*3/uL (0.00-0.03); Imm Gran Pct Auto 0.4 % (0.0-0.4); Lymphocytes Absolute Auto 0.9 X10*3/uL (1.2-4.9); Lymphocytes Percent Auto 18.1 % (20-40); Mean Corpuscular Hemoglobin 28.1 pg (27.0-33.0); Mean Corpuscular Volume 87.8 fL (80.0-98.0); Mean Platelet Volume 10.3 fL (9.4-12.3); Monocytes Absolute Auto 0.6 X10*3/uL (0.1-1.2); Monocytes Percent Auto 11.9 % (2-11); Neutrophils Absolute Auto 3.2 x10*3/uL (2.0-8.3); Neutrophils Percent Auto 67.3 % (45-73); Platelet Count 168 X10*3/uL (160-400); Red Blood Count 3.35 X10*6/uL (4.20-5.50); Red Cell Distribution Width 17.9 % (11.0-16.0); White Blood Count 4.8 X10*3/uL (4.8-10.8)
[2024-04-29] MEDS: Acetaminophen 325 MG TABLET 650 MG PO (08:36)
[2024-04-29] MEDS: Metoprolol Tartrate 25 MG TABLET PO ×2 (08:36→20:20)
[2024-04-29] MEDS: cefuroxime axetiL 250 MG TABLET PO (08:36)
[2024-04-29] MEDS: 0.9 % Sodium Chloride Flush 3 ML SYRINGE IVFLUSH ×3 (08:36→22:33)
--- NOTE | 2024-04-29 10:14 | HO.PM.IMPN ---
Subjective Subjective Date of Service: 04/29/24 Physical Exam Vital Signs: Vital Signs: Last Vital Signs Temp 97.8 F 04/29/24 08:34 Pulse 88 04/29/24 08:34 Resp 17 04/29/24 08:34 BP 140/58 H 04/29/24 08:34 Pulse Ox 99 04/29/24 08:34 O2 Del Method Room Air 04/29/24 08:34 BMI result Body Mass Index 21.8 Objective Data Active Medications Acetaminophen (Acetaminophen 325 Mg Tablet) 650 mg PO Q6H PRN PRN Reason: Pain, Mild (Pain Scale 1-3), fever or headache Last Admin: 04/29/24 08:36 Dose: 650 mg Documented By: XIOMARA Calcium Carbonate (Calcium Carbonate 750 Mg Tab.Chew) 750 mg PO Q4H PRN PRN Reason: Heartburn Cefuroxime Axetil (Cefuroxime Axetil 250 Mg Tablet) 250 mg PO BID [facility] Stop: 04/30/24 21:01 Last Admin: 04/29/24 08:36 Dose: 250 mg Documented By: XIOMARA Folic Acid (Folic Acid 1 Mg Tablet) 1 mg PO DAILY@183 [facility] Last Admin: 04/28/24 17:10 Dose: 1 mg Documented By: ALEXANDRE Gabapentin (Gabapentin 300 Mg Capsule) 300 mg PO BEDTIME [facility] [place] Last Admin: 04/28/24 21:34 Dose: 300 mg Documented By: RUFINA Magnesium Hydroxide (Milk Of Magnesia 30 Ml Oral.Susp) 30 ml PO DAILY PRN PRN Reason: Constipation Melatonin (Melatonin 3 Mg Tablet) 6 mg PO BEDTIME PRN PRN Reason: Insomnia Metoprolol Tartrate (Metoprolol Tartrate 25 Mg Tablet) 25 mg PO BID [facility]; Protocol Last Admin: 04/29/24 08:36 Dose: 25 mg Documented By: XIOMARA Ondansetron HCl (Ondansetron Hcl 4 Mg/2 Ml Vial) 4 mg IVPUSH Q8H PRN PRN Reason: Nausea and Vomiting Pantoprazole Sodium (Pantoprazole Sodium 40 Mg/10 Ml Vial) 40 mg IVPUSH BID@0630,1630 [facility] [place] Last Admin: 04/29/24 05:35 Dose: 40 mg Documented By: RUFINA Quetiapine Fumarate (Quetiapine Fumarate 25 Mg Tablet) 25 mg PO DAILY@1830 [facility] [place] Last Admin: 04/28/24 17:10 Dose: 25 mg Documented By: ALEXANDRE Sodium Chloride (0.9 % Sodium Chloride Flush 3 Ml Syringe) 3 ml IVFLUSH QSHIFT [facility] Last Admin: 04/29/24 08:36 Dose: 3 ml Documented By: XIOMARA Labs 04/29/24 06:37 04/28/24 07:20 Labs: Laboratory Results - last 24 hr 04/27/24 04/29/24 22:07 06:37 MCV 87.8 MCH 28.1 MCHC 32.0 RDW 17.9 H Plt Count 168 MPV 10.3 Immature Gran % (Auto) 0.4 Neut % (Auto) 67.3 Lymph % (Auto) 18.1 [place] % (Auto) 11.9 H Eos % (Auto) 1.3 Baso % (Auto) 1.0 Lymph # (Auto) 0.9 L [place] # (Auto) 0.6 Eos # (Auto) 0.1 Baso # (Auto) 0.1 Abs Immat Gran (auto) 0.02 Absolute Neuts (auto) 3.2 Absolute Nucleated RBC 0.000 Nucleated RBC % (auto) 0.0 Crossmatch See Detail Crossmatch ([facility]) See Detail Microbiology Microbiology Results: Microbiology 04/27/24 Unknown Urine Culture - Final Urine clean catch - Clean Catch Midstream Escherichia coli Assessment and Plan (1) Symptomatic anemia: Status: Acute (2) Generalized weakness: Status: Acute (3) GIB (gastrointestinal bleeding): Status: Acute Plan This is a 82-year-old female with pertinent history of mood disorder, history of PE on Xarelto, dementia, gastroesophageal reflux disease, recurrent UTI, history of breast cancer (2006) in remission who was brought to the emergency department for weakness and found to be anemic with melana Symptomatic blood loss anemia with melana on xarelto -hold Xarelto -received 2 units RBC, repeat H/H improved hgb 9.4 from 6.1 - continue IV PPI -GI consultation recommends EGD tomorrow --regular diet, NPO after midnight - B12 and folate normal Alzheimer's Dementia, stable no behavior issues Peripheral Neuropathy on gabapentin History of PE/DVT. Hold Xarelto as above HTN--uncontrolled, increase metoprolol Mood disorder: Continue seroqeul GERD On IV Protonix as above Possible UTI --BCx showing resistant ESBL, will add Meropenem and check with If this maybe colonization as has had it before and has chronic bacteruria DVT prophylaxis: Mechanical Full code NPO need for inpatient: acute blood loss anemia d/t gib, been transfused and may need further testing Quality Stroke Does the patient have a stroke diagnosis?: No VTE Prior VTE?: No VTE Risk Level:: Medical - moderate - high VTE Device Contraindication: N/A - Device Ordered VTE Drug Contraindication: Treatment Not Indicated
[2024-04-29] MEDS: QUEtiapine Fumarate 25 MG TABLET PO (17:14)
[2024-04-29] MEDS: Folic Acid 1 MG TABLET PO (17:14)
[2024-04-29] MEDS: Gabapentin 300 MG CAPSULE PO (20:19)
[2024-04-29] MEDS: Melatonin 3 MG TABLET 6 MG PO (20:20)
[2024-04-30] VITALS (8 sets, daily range): BP systolic 100–157; BP diastolic 53–79; PULSE 74–85; RESP 14–20; TEMP 36.1–36.8; O2SAT 96–99
[2024-04-30] MEDS: Pantoprazole Sodium 40 MG/10 ML VIAL IVPUSH (05:33)
[2024-04-30 07:37] LABS: MANUAL DIFF FLAG NO
[2024-04-30 07:45] LABS: Basophils Percent Auto 0.8 % (0-2); Eosinophils Absolute Auto 0.1 X10*3/uL (0.0-0.4); Eosinophils Percent Auto 1.9 % (0-4); Hemoglobin 8.4 g/dl (12.0-16.0); Imm Gran Abs Auto 0.02 X10*3/uL (0.00-0.03); Imm Gran Pct Auto 0.4 % (0.0-0.4); Lymphocytes Absolute Auto 0.8 X10*3/uL (1.2-4.9); Lymphocytes Percent Auto 17.6 % (20-40); Mean Corpuscular HGB Conc 31.1 g/dl (31.0-35.0); Mean Corpuscular Hemoglobin 27.4 pg (27.0-33.0); Mean Corpuscular Volume 87.9 fL (80.0-98.0); Mean Platelet Volume 10.4 fL (9.4-12.3); Monocytes Absolute Auto 0.6 X10*3/uL (0.1-1.2); Monocytes Percent Auto 12.1 % (2-11); Neutrophils Absolute Auto 3.2 x10*3/uL (2.0-8.3); Neutrophils Percent Auto 67.2 % (45-73); Platelet Count 148 X10*3/uL (160-400); Red Blood Count 3.07 X10*6/uL (4.20-5.50); Red Cell Distribution Width 17.8 % (11.0-16.0); White Blood Count 4.7 X10*3/uL (4.8-10.8)
[2024-04-30 07:53] LABS: Prothrombin Time 11.7 SEC (11.1-13.3)
[2024-04-30 07:59] LABS: Anion Gap 11 (12-20); Blood Urea Nitrogen 10 mg/dL (9-16); Calcium 8.4 mg/dL (8.4-10.2); Carbon Dioxide 23 mmol/L (22-29); Chloride 108 mmol/L (96-108); Creatinine Clr Calc Pharmacy 38.4; Estimated Glomerular Filt Rate 54; Glucose Fasting 100 mg/dL (60-99); Potassium 3.6 mmol/L (3.3-5.1); Sodium 138 mmol/L (135-145)
[2024-04-30] MEDS: Metoprolol Tartrate 25 MG TABLET PO (08:34)
[2024-04-30] MEDS: Acetaminophen 325 MG TABLET 650 MG PO (08:35)
[2024-04-30] MEDS: 0.9 % Sodium Chloride Flush 3 ML SYRINGE IVFLUSH (08:36)
--- NOTE | 2024-04-30 08:53 | P.PNIM_ITS ---
Subjective Subjective Date of Service: 04/30/24 Interval History: F/u acute blood loss anemia, melana No blood in stool, no sob, no cp Physical Exam 2 Vital Signs: Vital Signs: Last Vital Signs Temp 98.3 F 04/30/24 07:37 Pulse 85 04/30/24 07:37 Resp 18 04/30/24 07:37 BP 140/76 H 04/30/24 07:37 Pulse Ox 97 04/30/24 07:37 O2 Del Method Room Air 04/30/24 07:37 BMI result Body Mass Index 21.8 General: AO X 3, no acute distress Resp: CTA bilateral CVS: S1,S2,RRR GI: +BS, NT, no distention Skin: No rash Neuro: motor grossly intact Psych: appropriate affect Objective Data Active Medications Acetaminophen (Acetaminophen 325 Mg Tablet) 650 mg PO Q6H PRN PRN Reason: Pain, Mild (Pain Scale 1-3), fever or headache Last Admin: 04/30/24 08:35 Dose: 650 mg Documented By: RADHA Calcium Carbonate (Calcium Carbonate 750 Mg Tab.Chew) 750 mg PO Q4H PRN PRN Reason: Heartburn Folic Acid (Folic Acid 1 Mg Tablet) 1 mg PO DAILY@1830 [facility] Last Admin: 04/29/24 17:14 Dose: 1 mg Documented By: XIOMARA Gabapentin (Gabapentin 300 Mg Capsule) 300 mg PO BEDTIME [facility] Last Admin: 04/29/24 20:19 Dose: 300 mg Documented By: RUFINA Meropenem 1 gm/ Sodium (Chloride) 100 mls @ 200 mls/hr IV Q12H [facility] Last Infusion: 04/29/24 23:18 Dose: Infused Documented By: RUFINA Magnesium Hydroxide (Milk Of Magnesia 30 Ml Oral.Susp) 30 ml PO DAILY PRN PRN Reason: Constipation Melatonin (Melatonin 3 Mg Tablet) 6 mg PO BEDTIME PRN PRN Reason: Insomnia Last Admin: 04/29/24 20:20 Dose: 6 mg Documented By: RUFINA Metoprolol Tartrate (Metoprolol Tartrate 25 Mg Tablet) 25 mg PO BID [facility]; Protocol Last Admin: 04/30/24 08:34 Dose: 25 mg Documented By: RADHA Ondansetron HCl (Ondansetron Hcl 4 Mg/2 Ml Vial) 4 mg IVPUSH Q8H PRN PRN Reason: Nausea and Vomiting Pantoprazole Sodium (Pantoprazole Sodium 40 Mg/10 Ml Vial) 40 mg IVPUSH BID@0630,1630 [facility] Last Admin: 04/30/24 05:33 Dose: 40 mg Documented By: RUFINA Quetiapine Fumarate (Quetiapine Fumarate 25 Mg Tablet) 25 mg PO DAILY@1830 [facility] Last Admin: 04/29/24 17:14 Dose: 25 mg Documented By: XIOMARA Sodium Chloride (0.9 % Sodium Chloride Flush 3 Ml Syringe) 3 ml IVFLUSH QSHIFT [facility] Last Admin: 04/30/24 08:36 Dose: 3 ml Documented By: RADHA Labs 04/30/24 07:18 04/30/24 07:18 Labs: Laboratory Results - last 24 hr 04/27/24 04/27/24 04/30/24 20:02 22:07 07:18 MCV 87.9 MCH 27.4 MCHC 31.1 RDW 17.8 H Plt Count 148 L MPV 10.4 Immature Gran % (Auto) 0.4 Neut % (Auto) 67.2 Lymph % (Auto) 17.6 L [place] % (Auto) 12.1 H Eos % (Auto) 1.9 Baso % (Auto) 0.8 Lymph # (Auto) 0.8 L [place] # (Auto) 0.6 Eos # (Auto) 0.1 Baso # (Auto) 0.0 Abs Immat Gran (auto) 0.02 Absolute Neuts (auto) 3.2 Absolute Nucleated RBC 0.000 Nucleated RBC % (auto) 0.0 Smear Path Review SEE NOTE PT 11.7 INR 1.0 Anion Gap 11 L Estim Creat Clear Calc 38.4 Estimated GFR 54 Fasting Glucose 100 H Calcium 8.4 Crossmatch See Detail Microbiology Microbiology Results: Microbiology 04/27/24 Unknown Urine Culture - Final Urine clean catch - Clean Catch Midstream Escherichia coli Assessment and Plan (1) Symptomatic anemia: Status: Acute (2) Generalized weakness: Status: Acute (3) GIB (gastrointestinal bleeding): Status: Acute Plan This is a 82-year-old female with pertinent history of mood disorder, history of PE on Xarelto, dementia, gastroesophageal reflux disease, recurrent UTI, history of breast cancer (2006) in remission who was brought to the emergency department for weakness and found to be anemic with melana Symptomatic blood loss anemia with melana on xarelto -hold Xarelto -received 2 units RBC, repeat H/H improved hgb, presently 8.4 down from 9.4 yesterday -GI recommends EGD today 04/30 -NPO for procedure - B12 and folate normal Alzheimer's Dementia, stable no behavior issues Peripheral Neuropathy on gabapentin History of PE/DVT. Hold Xarelto as above HTN--better control with adjusted metoprolol Mood disorder: Continue seroqeul GERD On IV Protonix as above Possible UTI --BCx showing resistant ESBL, will add Meropenem and check with ID if this maybe colonization as has had it before and has chronic bacteruria DVT prophylaxis: Mechanical Full code NPO need for inpatient: acute blood loss anemia d/t gib, been transfused and may need further testing Quality Stroke Does the patient have a stroke diagnosis?: No VTE Prior VTE?: No VTE Risk Level:: Medical - moderate - high VTE Device Contraindication: N/A - Device Ordered VTE Drug Contraindication: Treatment Not Indicated
--- NOTE | 2024-04-30 11:04 | MHC.CM.PN ---
Per ROUNDS discussion, Patient is not yet medically cleared for dc (Anemia/GIB/EGD today); home is the goal and CM will continue to follow.
[2024-04-30] MEDS: Lactated Ringers 1,000 ML 50 ML IVCONT (13:46)
--- NOTE | 2024-04-30 13:48 | HO.ANESPROP2 ---
HPI - Anesthesia Eval Consult details Narrative: 83 yo F admitted for symptomatic anemia with suspected GI bleed s/p 2 units PRBCs PMFSH Active Problems Active Problems: All Active Problems GIB (gastrointestinal bleeding) (Acute) Symptomatic anemia (Acute) Generalized weakness (Acute) Fungal skin infection (Acute) Urinary incontinence (Acute) History of pulmonary embolism (Acute) Peripheral vascular disease (Acute) Alzheimer's dementia (Acute) Syncope (Acute) Urinary tract infection (Acute) Hypercholesterolemia (Acute) Varicose veins of left lower extremity with inflammation (Acute) Lumbar spondylosis (Acute) Lumbar radiculopathy (Acute) OAB (overactive bladder) (Acute) Current use of anticoagulant therapy (Acute) Anemia (Acute) Encephalopathy acute (Acute) Urinary tract infection (Acute) Fall (Acute) PUMA (acute kidney injury) (Acute) Status post total knee replacement, left (Acute) Urinary incontinence (Acute) Protein calorie malnutrition (Acute) Osteopenia (Acute) Urinary urgency (Acute) B12 deficiency anemia (Acute) Medicare annual wellness visit, initial (Acute) Overactive bladder (Acute) Nocturia more than twice per night (Acute) GERD (gastroesophageal reflux disease) (Acute) History of right breast cancer (Acute) Impaired fasting glucose (Acute) History of arthroplasty of left knee (Acute) HTN (hypertension) (Acute) Past Medical History Medical History Urinary incontinence Bilateral hip pain Venous insufficiency of both lower extremities Bilateral knee pain Arthritis of lumbosacral spine Pressure ulcer Chronic diarrhea TIA (transient ischemic attack) UTI (urinary tract infection) Hallucination Confusion Diarrhea Supratherapeutic INR Weakness Cognitive change Pernicious anemia Osteoporosis Peripheral neuropathy Impaired fasting glucose Irritable bowel syndrome Breast cancer Thrombocytopenia Hypomagnesemia Hx of hypercalcemia History of alcohol use B12 deficiency Fatty liver, alcoholic HTN (hypertension) Hx of metabolic acidosis GERD (gastroesophageal reflux disease) Hx of deep venous thrombosis Hx of tuberculosis History of pulmonary embolism History of right breast cancer Osteoarthritis of left knee Family History Family History Father No problems noted. Mother No problems noted. Other No family history of cancer Family history of problems with anesthesia: No Surgical History Surgical History History of left knee surgery History of arthroplasty of left knee Hx of adenoidectomy History of esophagogastroduodenoscopy (EGD) History of evacuation of hematoma Hx of colonoscopy History of cataract surgery History of cystoscopy History of knee replacement procedure of right knee History of lumpectomy of right breast History of tonsillectomy H/O right mastectomy S/P SASHA-BSO (total abdominal hysterectomy and bilateral salpingo-oophorectomy) History of appendectomy History of Problems with Anesthesia: No Social History Social History Household Members: Spouse Housing: House Are you a primary healthcare marketer to a significant other at home: No Do you presently have visiting nurse or other home services: No Alcohol intake: former Comment: aware of trip hazard Patient Tobacco Use Status: Never used Tobacco e-Cigarette/Vaping Use: Never Used Second Hand Smoke Exposure: No Advance Directives Date on File: 12/24/21 service: No Current occupational status: retired Cognitive needs: No Hearing needs: No Vision needs: Yes Meds Allergies Allergy/AdvReac Type Severity Reaction Status Date / Time sulfamethoxazole Allergy Severe Itching Verified 04/27/24 18:46 [From Bactrim] trimethoprim [From Bactrim] Allergy Severe Itching Verified 04/27/24 18:46 cortisone [Cortisone] Allergy Mild PT STATES, Verified 04/27/24 18:46 hx TB IT COULD AFFECT CRYSTALS IN LUNG prochlorperazine Allergy Mild LEG Verified 04/27/24 18:46 [From Compazine] NUMBNESS hydrochlorothiazide Allergy Unknown RASH Verified 04/27/24 18:46 levofloxacin [Levaquin] Allergy Unknown Wakefulness, Verified 04/27/24 18:46 nausea, shaking Sulfa (Sulfonamide AdvReac Intermediate rash Verified 04/27/24 18:46 Antibiotics) codeine AdvReac Unknown NAUSEA/VOMI Verified 04/27/24 18:46 TING chocolate Allergy Unknown severe Uncoded 04/27/24 18:46 headaches/vomiting Active Medications: Current Medications Acetaminophen (Acetaminophen 325 Mg Tablet) 650 mg PO Q6H PRN PRN Reason: Pain, Mild (Pain Scale 1-3), fever or headache Last Admin: 04/30/24 08:35 Dose: 650 mg Calcium Carbonate (Calcium Carbonate 750 Mg Tab.Chew) 750 mg PO Q4H PRN PRN Reason: Heartburn Folic Acid (Folic Acid 1 Mg Tablet) 1 mg PO DAILY@1830 [facility] Last Admin: 04/29/24 17:14 Dose: 1 mg Gabapentin (Gabapentin 300 Mg Capsule) 300 mg PO BEDTIME [facility] Last Admin: 04/29/24 20:19 Dose: 300 mg Meropenem 1 gm/ Sodium (Chloride) 100 mls @ 200 mls/hr IV Q12H [facility] Last Infusion: 04/30/24 12:53 Dose: Infused Lactated Ringer's (Lr) 1,000 mls @ 50 mls/hr IVCONT .Q20H [facility] Last Admin: 04/30/24 13:46 Dose: 50 mls/hr Magnesium Hydroxide (Milk Of Magnesia 30 Ml Oral.Susp) 30 ml PO DAILY PRN PRN Reason: Constipation Melatonin (Melatonin 3 Mg Tablet) 6 mg PO BEDTIME PRN PRN Reason: Insomnia Last Admin: 04/29/24 20:20 Dose: 6 mg Metoprolol Tartrate (Metoprolol Tartrate 25 Mg Tablet) 25 mg PO BID [facility]; Protocol Last Admin: 04/30/24 08:34 Dose: 25 mg Ondansetron HCl (Ondansetron Hcl 4 Mg/2 Ml Vial) 4 mg IVPUSH Q8H PRN PRN Reason: Nausea and Vomiting Pantoprazole Sodium (Pantoprazole Sodium 40 Mg/10 Ml Vial) 40 mg IVPUSH BID@0630,1630 [facility] Last Admin: 04/30/24 05:33 Dose: 40 mg Quetiapine Fumarate (Quetiapine Fumarate 25 Mg Tablet) 25 mg PO DAILY@1830 [facility] Last Admin: 04/29/24 17:14 Dose: 25 mg Sodium Chloride (0.9 % Sodium Chloride Flush 3 Ml Syringe) [facility] Last Admin: 04/30/24 08:36 Dose: 3 ml Home Medications ?Medication ?Instructions ?Recorded ?Confirmed ?Last Taken ?Type omeprazole 20 mg capsule,delayed 20 mg PO DAILY@0630 01/08/22 04/27/24 04/27/24 18:30 History release rivaroxaban 20 mg tablet (Xarelto) 20 mg PO BEDTIME 04/27/24 04/27/24 04/27/24 18:30 History Exam Exam Date and Time: April 30, 2024 1345 Height,Weight and Vital Signs: Height 5 ft 4.5 in Weight 58.6 kg Last Vital Signs Temp 97.0 F 04/30/24 13:37 Pulse 76 04/30/24 13:37 Resp 16 04/30/24 13:37 BP 136/79 04/30/24 13:37 Pulse Ox 99 04/30/24 13:37 O2 Del Method Room Air 04/30/24 13:37 Pertinent Lab Results Pertinent Lab Results: Laboratory Tests 04/27/24 04/27/24 04/27/24 20:02 20:21 20:40 WBC 4.3 L RBC 2.24 L D Hgb 6.1 L* D Hct 20.1 L* D MCV 89.7 MCH 27.2 MCHC 30.3 L RDW 18.5 H Plt Count 185 MPV 10.1 Immature Gran % (Auto) 0.2 Neut % (Auto) 53.2 Lymph % (Auto) 31.9 [place] % (Auto) 12.9 H Eos % (Auto) 0.9 Baso % (Auto) 0.9 Lymph # (Auto) 1.4 [place] # (Auto) 0.6 Eos # (Auto) 0.0 Baso # (Auto) 0.0 Abs Immat Gran (auto) 0.01 Absolute Neuts (auto) 2.3 Absolute Nucleated RBC 0.000 Nucleated RBC % (auto) 0.0 Smear Path Review SEE NOTE PT INR Sodium 142 Potassium 4.2 Chloride 112 H Carbon Dioxide 18 L Anion Gap 16 BUN 11 Creatinine 1.12 Estim Creat Clear Calc 34.0 Estimated GFR 47 Random Glucose 107 Fasting Glucose Calcium 8.2 L D Magnesium 2.0 Iron 23 L TIBC 315 % Saturation 7 L Unsat Iron Binding 292 Total Bilirubin 0.3 AST 22 ALT 7 Alkaline Phosphatase 95 Troponin I High Sens 3.4 B-Natriuretic Peptide 152 H Total Protein 6.1 L Albumin 3.0 L Vitamin B12 Folate Urine Color Yellow Urine Appearance Clear Urine pH 6.5 Ur Specific [place] <= 1.005 Urine Protein Negative Urine Glucose (UA) Negative Urine Ketones Negative Urine Blood Negative Urine Nitrite Negative Ur Leukocyte Esterase Small (1+) H Urine RBC 0-2 Urine WBC 6-10 H Ur Squamous Epith Cells 0-2 Urine Bacteria 4+ Hyaline Casts 0-2 Stool Occult Blood NEGATIVE Blood Type Antibody Screen Antibody Identification Crossmatch Crossmatch ([facility]) Blood Bank Comment 04/27/24 04/28/24 04/29/24 22:07 07:20 06:37 WBC 5.1 4.8 RBC 3.15 L D 3.35 L Hgb 8.7 L D 9.4 L Hct 27.9 L D 29.4 L MCV 88.6 87.8 MCH 27.6 28.1 MCHC 31.2 32.0 RDW 17.6 H 17.9 H Plt Count 179 168 MPV 11.0 10.3 Immature Gran % (Auto) 0.4 0.4 Neut % (Auto) 63.7 67.3 Lymph % (Auto) 21.9 18.1 L [place] % (Auto) 12.6 H 11.9 H Eos % (Auto) 0.6 1.3 Baso % (Auto) 0.8 1.0 Lymph # (Auto) 1.1 L 0.9 L [place] # (Auto) 0.6 0.6 Eos # (Auto) 0.0 0.1 Baso # (Auto) 0.0 0.1 Abs Immat Gran (auto) 0.02 0.02 Absolute Neuts (auto) 3.2 3.2 Absolute Nucleated RBC 0.000 0.000 Nucleated RBC % (auto) 0.0 0.0 Smear Path Review PT INR Sodium 142 Potassium 4.1 Chloride 109 H Carbon Dioxide 24 Anion Gap 13 BUN 12 Creatinine 1.00 Estim Creat Clear Calc 38.1 Estimated GFR 53 Random Glucose 91 Fasting Glucose Calcium 8.5 Magnesium Iron TIBC % Saturation Unsat Iron Binding Total Bilirubin AST ALT Alkaline Phosphatase Troponin I High Sens B-Natriuretic Peptide Total Protein Albumin Vitamin B12 368 Folate 13.9 Urine Color Urine Appearance Urine pH Ur Specific [place] Urine Protein Urine Glucose (UA) Urine Ketones Urine Blood Urine Nitrite Ur Leukocyte Esterase Urine RBC Urine WBC Ur Squamous Epith Cells Urine Bacteria Hyaline Casts Stool Occult Blood Blood Type O Positive Antibody Screen POSITIVE Antibody Identification Inconclusive Crossmatch See Detail Crossmatch ([facility]) See Detail Blood Bank Comment Specimen 04/30/24 07:18 WBC 4.7 L RBC 3.07 L Hgb 8.4 L Hct 27.0 L MCV 87.9 MCH 27.4 MCHC 31.1 RDW 17.8 H Plt Count 148 L MPV 10.4 Immature Gran % (Auto) 0.4 Neut % (Auto) 67.2 Lymph % (Auto) 17.6 L [place] % (Auto) 12.1 H Eos % (Auto) 1.9 Baso % (Auto) 0.8 Lymph # (Auto) 0.8 L [place] # (Auto) 0.6 Eos # (Auto) 0.1 Baso # (Auto) 0.0 Abs Immat Gran (auto) 0.02 Absolute Neuts (auto) 3.2 Absolute Nucleated RBC 0.000 Nucleated RBC % (auto) 0.0 Smear Path Review PT 11.7 INR 1.0 Sodium 138 Potassium 3.6 Chloride 108 Carbon Dioxide 23 Anion Gap 11 L BUN 10 Creatinine 0.99 Estim Creat Clear Calc 38.4 Estimated GFR 54 Random Glucose Fasting Glucose 100 H Calcium 8.4 Magnesium Iron TIBC % Saturation Unsat Iron Binding Total Bilirubin AST ALT Alkaline Phosphatase Troponin I High Sens B-Natriuretic Peptide Total Protein Albumin Vitamin B12 Folate Urine Color Urine Appearance Urine pH Ur Specific [place] Urine Protein Urine Glucose (UA) Urine Ketones Urine Blood Urine Nitrite Ur Leukocyte Esterase Urine RBC Urine WBC Ur Squamous Epith Cells Urine Bacteria Hyaline Casts Stool Occult Blood Blood Type Antibody Screen Antibody Identification Crossmatch Crossmatch ([facility]) Blood Bank Comment Airway Mallampati Class: II TM Dist: >3cm Neck ROM: Limited Loose/Missing/Broken Teeth: No (patient denies any loose or broken teeth) Heart: S1S2 Lungs: CTAB Assessment and Plan Assessment Anesthesia Assessment: Anesthesia Plan Discussed and Chart Reviewed Final Anesthetic Review Family History of Problems with Anesthesia: No History of Problems with Anesthesia: No NPO: Yes ASA Class: III Final Preanesthetic Review: No Changes in Pt Med Stat, Meds/Allgs Chart Reviewed, Consent Obtained/Reviewed and Anes Risks/Benef Reviewed Patient Risk: Intermediate Procedure Risk: Low Anesthetic Plan Anesthetic Plan: MAC: and Agree w/ Assess. and Plan Disposition: Standard PACU
--- NOTE | 2024-04-30 14:53 | PM.EVENT ---
Event Note Date of Service: 04/30/24 Event Note: GI-Full note dictated EGD with biopsies 1. Single 5mm inflammatory polyp in the 2nd portion of duodenum-not biopsied nor removed 2. Gastric antral erythema-biopsied x 3 3. Small hiatal hernia Imp: Resolved UGI bleed due to a probable ulcer or erosive gastritis from a NSAID while on her Xarelto. Rec: Avoid all aspirin and NSAIDs skilled nursing. 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 She may resume her Xarelto in 1 week. If she has recurrent bleeding she may need further evaluation with a colonoscopy, repeat EGD with removal of the duodenal polyp, and/or a small bowel capsule study. She could go home later today, or by tomorrow, if stable. Thanks Time Spent With Patient Time: Total time managing care of this patient today ____ minutes.
--- NOTE | 2024-04-30 15:02 | PM.OP ---
Brief Operative Note Date of Service: 04/30/24 Pre-op diagnosis: Melena Post-op diagnosis: other (Duodenal inflammatory polyp, Hiatal hernia, Mild gastritis) Procedure: EGD with biopsies Surgeon: Praful Correia MD Anesthesia: MAC Was an Tool Machine Set Up Operator used for this Procedure?: No Estimated blood loss (mL): 2.0 Pathology: other (A. Gastric antrum) Condition: stable Disposition: PACU
[2024-04-30] MEDS: Omeprazole 20 MG CAPSULE.DR PO (16:04)
--- NOTE | 2024-04-30 16:22 | PM.DS ---
DS: Providers Provider Date of Service: 04/30/24 Date of admission: 04/27/24 21:08 Primary care physician: Unknown Physician Consults: 04/27/24 21:07 Consult to Gastroenterology Routine Consulting Provider: Praful Correia Reason for consultation: symptomatic anemia 04/30/24 08:56 Consult to Infectious Diseases Routine Consulting [place] [facility] Reason for consultation: ESBL uti DS: Diagnosis Discharge Diagnosis (1) Symptomatic anemia: Status: Acute (2) Generalized weakness: Status: Acute (3) GIB (gastrointestinal bleeding): Status: Acute DS: Summary Hospital Course Hospital Course: admission Chief Complaint: Weakness This is a 82-year-old female with pertinent history of mood disorder, history of PE on Xarelto, Alzheimer's dementia, gastroesophageal reflux disease, recurrent UTI, history of breast cancer (2006) in remission, peripheral neuropathy who presents to the emergency department for evaluation of weakness. Patient states she has been weak for about 3-4 weeks now. Also has been having dyspnea which is worse with exertion. Does not use a cane or a walker to ambulate. Patient states that about 3 weeks ago she noticed black stools the lasted for about 10-14 days. This has never happened before. She denies abdominal discomfort, nausea, vomiting, fever or chills. No chest discomfort, shortness of breath, changes in urinary or bowel habits. Patient denies cathryn red blood in stool, hematemesis or hematuria. In the emergency department, hemoglobin was found to be 6.1 and 2 unit PRBC ordered Hospital course: she presented with melana and found to have symptomatic blood loss anemia while on xarelto. Hemogolobin was 6. Xarelto was on old. She was transfused 2 units of RBC repeat H/H improved hgb, presently 8.4 down from 9.4 yesterday but no sings of active bleed. She had EGD today 04/30/[address] Correia with the following comments GD with biopsies 1. Single 5mm inflammatory polyp in the 2nd portion of duodenum-not biopsied nor removed 2. Gastric antral erythema-biopsied x 3 3. Small hiatal hernia Imp: Resolved UGI bleed due to a probable ulcer or erosive gastritis from a NSAID while on her Xarelto. Rec: Avoid all aspirin and NSAIDs group home. Continue PPI group home. Advance diet. She may resume her Xarelto in 1 week. If she has recurrent bleeding she may need further evaluation with a colonoscopy, repeat EGD with removal of the duodenal polyp, and/or a small bowel capsule study. ? UTI--she has history E.coli, ESBL, she has chronic bacteruria, urine culture showed ESBL ecoli again, she is assymptomatic and therefore will not treat Time Attestation Discharge Coordination Time (in mins): 35 Quality: Safe Use of Opioids Does Pt have an Active Cancer Diagnosis on the Problem List?: No Quality: Stroke Does the patient have a stroke diagnosis?: No Physical Exam Vital Signs: Vital Signs: Last Vital Signs Temp 97.4 F 04/30/24 15:20 Pulse 74 04/30/24 15:20 Resp 16 04/30/24 15:20 BP 132/69 04/30/24 15:20 Pulse Ox 96 04/30/24 15:20 O2 Del Method Room Air 04/30/24 15:20 BMI result Body Mass Index 21.8 DS: Data Data Completed and Pending Completed studies during hospitalization [Text1]: Procedures Insertion of Infusion Device into Right Basilic Vein, Percutaneous Approach (04/11/23) Replacement of Left Knee Joint with Synthetic Substitute, Uncemented, Open Approach (10/06/20) Transfusion of Nonautologous Red Blood Cells into Peripheral Vein, Percutaneous Approach (10/06/20) Pending studies at discharge: Pending at discharge 04/30/24 14:46 Surgical [PTH] Routine Labs on day of discharge: Laboratory Results - last 24 hr 04/27/24 04/27/24 04/30/24 20:02 22:07 07:18 WBC 4.7 L RBC 3.07 L Hgb 8.4 L Hct 27.0 L MCV 87.9 MCH 27.4 MCHC 31.1 RDW 17.8 H Plt Count 148 L MPV 10.4 Immature Gran % (Auto) 0.4 Neut % (Auto) 67.2 Lymph % (Auto) 17.6 L Green % (Auto) 12.1 H Eos % (Auto) 1.9 Baso % (Auto) 0.8 Lymph # (Auto) 0.8 L Green # (Auto) 0.6 Eos # (Auto) 0.1 Baso # (Auto) 0.0 Abs Immat Gran (auto) 0.02 Absolute Neuts (auto) 3.2 Absolute Nucleated RBC 0.000 Nucleated RBC % (auto) 0.0 Smear Path Review SEE NOTE PT 11.7 INR 1.0 Sodium 138 Potassium 3.6 Chloride 108 Carbon Dioxide 23 Anion Gap 11 L BUN 10 Creatinine 0.99 Estim Creat Clear Calc 38.4 Estimated GFR 54 Fasting Glucose 100 H Calcium 8.4 Crossmatch See Detail Discharge Plan Discharge Anticipated Discharge Date/Time: 04/30/24 16:17 Patient Disposition: Home, Self-Care Discharge Diagnosis: Acute blood loss anemia, GI Bleeding Referrals: Physician,Unknown J [Primary Care Provider] - 1 Week Discharge Medications: Continued omeprazole 20 mg capsule,delayed release(DR/EC) 20 mg PO DAILY@0630 folic acid 1 mg Tablet 1 mg PO DAILY Qty: 90 4RF quetiapine [Seroquel] 25 mg tablet 25 mg PO DAILY Qty: 90 2RF metoprolol tartrate 25 mg tablet 12.5 mg PO BID 90 Days Qty: 90 3RF gabapentin 300 mg capsule 300 mg PO BEDTIME 90 Days Qty: 90 3RF (DME) right mastectomy bra See Rx Instructions .Route .MEDSUPPLY Qty: 2 0RF Rx Instructions: As directed Held Xarelto 20 mg tablet 20 mg PO BEDTIME Hold Instructions: Resume on 05/07/24. Discharge Orders: Discharge Order (Routine); Ordered 04/30/24 Ordered By: Derrell Valdez Diet: Advance to usual diet Activity on Discharge: As tolerated Stand Alone Forms: Patient Portal Discharge page Print Language: [place] Citizen Care Plan Goals: resolution of anemia, gi bleeding Health Concerns: anemia, acute blood loss anemia, weakness--resolved Plan of Treatment: hold Xarelto for 1 week, then restart do not take NSAID such ibuprofen, naproxen, melixicam--Check with your local pharmacist before taking any over the counter pain medications Assessment: see above
--- NOTE | 2024-04-30 16:36 | OP_ITS ---
DATE OF SERVICE: 04/30/2024 SURGEON: Praful Correia MD INDICATIONS: The patient presents for evaluation of history of melena and anemia. Full consent has been obtained from her for this, including risks of bleeding and perforation. PREOPERATIVE DIAGNOSIS: POSTOPERATIVE DIAGNOSIS: PROCEDURE PERFORMED: Esophagogastroduodenoscopy with biopsies. ESTIMATED BLOOD LOSS: COMPLICATIONS: ANESTHESIA: Monitored anesthesia care. ASSISTANTS: SPECIMENS: PREOPERATIVE DIAGNOSES: Melena and anemia. POSTOPERATIVE DIAGNOSES: Melena, anemia, small duodenal inflammatory polyp, hiatal hernia, minimal gastritis. DESCRIPTION OF PROCEDURE: The patient was placed in the left lateral decubitus position. The Olympus video gastroscope was passed into the posterior oropharynx and upper esophagus under direct vision. The scope was passed slowly into the distal esophagus. The gastroesophageal junction appeared normal at 36 cm. There was no sign of any esophagitis. There was a diverticulum noted in the esophagus at 25 cm as had been seen on previous procedures. The scope entered in the stomach. There was a small hiatal hernia. The scope was advanced to pylorus and the duodenum was cannulated to the 2nd and 3rd portions. In the 2nd portion, the duodenum was an approximately 5 or 6 mm inflammatory-appearing duodenal polyp. There was no bleeding. This was not biopsied nor removed. The remainder of the duodenum including the duodenal bulb appeared normal. The scope was withdrawn back to the stomach. The gastric antrum had some areas of erythema, which were biopsied, but there was no evidence of any ulceration, erosions, mass, nor bleeding. There was good peristalsis. The scope was retroflexed, visualizing the proximal stomach carefully, which appeared normal, without any sign of mass or ulceration. Scope was straightened and withdrawn back in the esophagus. The esophageal mucosa appeared normal. Again, noted was the diverticulum at 25 cm. The diverticulum pouch appeared normal, without any sign of ulceration. Scope was withdrawn from the patient. She tolerated the procedure well and was returned to the recovery area in stable condition. IMPRESSION: 1. Small inflammatory-appearing polyp in the 2nd portion of duodenum. Not biopsied nor removed. 2. Gastric antral erythema, status post biopsy x3. 3. Hiatal hernia. 4. Esophageal diverticulum. PLAN: Patient appears very stable and there have been no further signs of bleeding. Overall, I suspect she had a bleed in relation to a probable ulcer or erosive gastritis from some NSAID she had been using at home a couple weeks ago. At this point, I would recommend that she obviously avoid all aspirin and NSAIDs long-term. She should continue her PPI long-term as well. Her diet can be advanced. She may resume her Xarelto in 1 week. She could go home later today or certainly by tomorrow. If she has recurrent bleeding, she may need further evaluation with a colonoscopy, repeat upper endoscopy with removal of the duodenal polyp, and/or a small-bowel capsule study. MD WILMER Viveros/JOSÉ MIGUEL / [id number]
--- NOTE | 2024-04-30 16:53 | W.PM.IDCN ---
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 She has had EGD with GI. She has no urinary symptoms and no hematuria. Review of Systems Review of Systems: Yes all other systems are reviewed and are negative [facility] Past Medical History Medical History (Updated 04/30/24 @ 16:55 by Jyothi Serrano MD) Chronic bacteriuria Urinary incontinence Bilateral hip pain Venous insufficiency of both lower extremities Bilateral knee pain Arthritis of lumbosacral spine Pressure ulcer Chronic diarrhea TIA (transient ischemic attack) UTI (urinary tract infection) Hallucination Confusion Diarrhea Supratherapeutic INR Weakness Cognitive change Pernicious anemia Osteoporosis Peripheral neuropathy Impaired fasting glucose Irritable bowel syndrome Breast cancer Thrombocytopenia Hypomagnesemia Hx of hypercalcemia History of alcohol use B12 deficiency Fatty liver, alcoholic HTN (hypertension) Hx of metabolic acidosis GERD (gastroesophageal reflux disease) Hx of deep venous thrombosis Hx of tuberculosis History of pulmonary embolism History of right breast cancer Osteoarthritis of left knee Family History Family History Father No problems noted. Mother No problems noted. Other No family history of cancer Family history: reviewed and not pertinent Surgical History Surgical History History of left knee surgery History of arthroplasty of left knee Hx of adenoidectomy History of esophagogastroduodenoscopy (EGD) History of evacuation of hematoma Hx of colonoscopy History of cataract surgery History of cystoscopy History of knee replacement procedure of right knee History of lumpectomy of right breast History of tonsillectomy H/O right mastectomy S/P SASHA-BSO (total abdominal hysterectomy and bilateral salpingo-oophorectomy) History of appendectomy Social History Social History Household Members: Spouse Housing: House Are you a primary outdoor emergency care technician to a significant other at home: No Do you presently have visiting nurse or other home services: No Alcohol intake: former Comment: aware of trip hazard Patient Tobacco Use Status: Never used Tobacco e-Cigarette/Vaping Use: Never Used Second Hand Smoke Exposure: No Advance Directives Date on File: 12/24/21 service: No Current occupational status: retired Cognitive needs: No Hearing needs: No Vision needs: Yes Meds Allergies Allergy/AdvReac Type Severity Reaction Status Date / Time sulfamethoxazole Allergy Severe Itching Verified 04/27/24 18:46 [From Bactrim] trimethoprim [From Bactrim] Allergy Severe Itching Verified 04/27/24 18:46 cortisone [Cortisone] Allergy Mild PT STATES, Verified 04/27/24 18:46 hx TB IT COULD AFFECT CRYSTALS IN LUNG prochlorperazine Allergy Mild LEG Verified 04/27/24 18:46 [From Compazine] NUMBNESS hydrochlorothiazide Allergy Unknown RASH Verified 04/27/24 18:46 levofloxacin [Levaquin] Allergy Unknown Wakefulness, Verified 04/27/24 18:46 nausea, shaking Sulfa (Sulfonamide AdvReac Intermediate rash Verified 04/27/24 18:46 Antibiotics) codeine AdvReac Unknown NAUSEA/VOMI Verified 04/27/24 18:46 TING chocolate Allergy Unknown severe Uncoded 04/27/24 18:46 headaches/vomiting Active Medications: Current Medications Acetaminophen (Acetaminophen 325 Mg Tablet) 650 mg PO Q6H PRN PRN Reason: Pain, Mild (Pain Scale 1-3), fever or headache Last Admin: 04/30/24 08:35 Dose: 650 mg Calcium Carbonate (Calcium Carbonate 750 Mg Tab.Chew) 750 mg PO Q4H PRN PRN Reason: Heartburn Folic Acid (Folic Acid 1 Mg Tablet) 1 mg PO DAILY@1830 [facility] Last Admin: 04/29/24 17:14 Dose: 1 mg Gabapentin (Gabapentin 300 Mg Capsule) 300 mg PO BEDTIME [facility] Last Admin: 04/29/24 20:19 Dose: 300 mg Meropenem 1 gm/ Sodium (Chloride) 100 mls @ 200 mls/hr IV Q12H [facility] Last Infusion: 04/30/24 12:53 Dose: Infused Lactated Ringer's (Lr) 1,000 mls @ 50 mls/hr IVCONT .Q20H [facility] Last Admin: 04/30/24 13:46 Dose: 50 mls/hr Magnesium Hydroxide (Milk Of Magnesia 30 Ml Oral.Susp) 30 ml PO DAILY PRN PRN Reason: Constipation Melatonin (Melatonin 3 Mg Tablet) 6 mg PO BEDTIME PRN PRN Reason: Insomnia Last Admin: 04/29/24 20:20 Dose: 6 mg Metoprolol Tartrate (Metoprolol Tartrate 25 Mg Tablet) 25 mg PO BID [facility]; Protocol Last Admin: 04/30/24 08:34 Dose: 25 mg Omeprazole (Omeprazole 20 Mg Capsule.) 20 mg PO DAILY@0630 [facility] Last Admin: 04/30/24 16:04 Dose: 20 mg Ondansetron HCl (Ondansetron Hcl 4 Mg/2 Ml Vial) 4 mg IVPUSH Q8H PRN PRN Reason: Nausea and Vomiting Quetiapine Fumarate (Quetiapine Fumarate 25 Mg Tablet) 25 mg PO DAILY@1830 [facility] Last Admin: 04/29/24 17:14 Dose: 25 mg Sodium Chloride (0.9 % Sodium Chloride Flush 3 Ml Syringe) 3 ml IVFLUSH QSHIFT [facility] Last Admin: 04/30/24 08:36 Dose: 3 ml Home Medications ?Medication ?Instructions ?Recorded ?Confirmed ?Last Taken ?Type omeprazole 20 mg capsule,delayed 20 mg PO DAILY@0630 01/08/22 04/27/24 04/27/24 18:30 History release rivaroxaban 20 mg tablet (Xarelto) 20 mg PO BEDTIME 04/27/24 04/27/24 04/27/24 18:30 History Physical Exam Vital Signs: Vital Signs: Last Vital Signs Temp 97.4 F 04/30/24 15:20 Pulse 74 04/30/24 15:20 Resp 16 04/30/24 15:20 BP 143/75 H 04/30/24 16:33 Pulse Ox 96 04/30/24 15:20 O2 Del Method Room Air 04/30/24 15:20 BMI result Body Mass Index 21.8 Results Labs 04/30/24 07:18 04/30/24 07:18 Labs: Short CBC 04/30/24 Range/Units 07:18 WBC 4.7 L (4.8-10.8) X10*3/uL Hgb 8.4 L (12.0-16.0) g/dl Hct 27.0 L (37.0-47.0) % Plt Count 148 L (160-400) X10*3/uL BMP 04/30/24 07:18 Sodium 138 Potassium 3.6 Chloride 108 Carbon Dioxide 23 BUN 10 Creatinine 0.99 Calcium 8.4 Microbiology Microbiology Results: Microbiology 04/27/24 Unknown Urine clean catch - Clean Catch Midstream Urine Culture - Final Escherichia coli Assessment and Plan (1) GIB (gastrointestinal bleeding): Status: Acute (2) Chronic bacteriuria: Status: Acute Plan NO acute infection,colonized. No antibiotics or other treatment.
== END 2024-04-30 17:35 | disposition home or self-care (01) | DRG 378 ==
LOC: HO.ED 20:31 → HO.EDOVER 21:18 → HO.IMC 23:02
PROVIDERS: Internal Medicine; Physician Assistant; Admitting Provider Student in an Organized Health Care Education/Training Program; Emergency Provider Emergency Medicine; PCP Internal Medicine; Visit Provider Internal Medicine
PROC: 0DJ08ZZ Inspection of Upper Intestinal Tract, Via Natural or Artificial Opening Endoscopic (ICD-10-PCS; CPT 43235; principal; 2024-04-30 13:40)
DX: K29.71 Gastritis, unspecified, with bleeding (principal); D62 Acute posthemorrhagic anemia; Z16.12 Extended spectrum beta lactamase (ESBL) resistance; T39.395A Adverse effect of other nonsteroidal anti-inflammatory drugs [NSAID], initial encounter; K70.0 Alcoholic fatty liver; B96.20 Unspecified Escherichia coli [E. coli] as the cause of diseases classified elsewhere; G30.9 Alzheimer's disease, unspecified; G62.9 Polyneuropathy, unspecified; F02.80 Dementia in other diseases classified elsewhere, unspecified severity, without behavioral disturbance, psychotic disturbance, mood disturbance, and anxiety; Z86.718 Personal history of other venous thrombosis and embolism; K31.7 Polyp of stomach and duodenum; K44.9 Diaphragmatic hernia without obstruction or gangrene; Z85.3 Personal history of malignant neoplasm of breast; Z90.11 Acquired absence of right breast and nipple; R82.71 Bacteriuria; Z86.711 Personal history of pulmonary embolism; Z79.01 Long term (current) use of anticoagulants; Z79.899 Other long term (current) drug therapy
CPT/HCPCS: 36415; 71045; 80048; 80053; 81001; 82272; 82607; 82746; 83540; 83735; 83880; 84484; 85025; 85610; 86850; 86870; 86885; 86900; 86901; 86920; 86922; 87086; 87088; 87186; 88305; 88313; 88342; 93005; 99285; J2185; J2470; J2704; J7120; P9016

== ENCOUNTER → 2024-04-27 19:03 | Outpatient (BNV) | payer MEDICARE, SELFPAY | PROVIDERS: Admitting Provider Student in an Organized Health Care Education/Training Program; Emergency Provider Emergency Medicine; Visit Provider Internal Medicine | DX: R06.00 Dyspnea, unspecified (principal) | CPT/HCPCS: 93010 ==

== ENCOUNTER → 2024-04-27 21:08 | Outpatient (BNV) | payer MEDICARE, SELFPAY | PROVIDERS: Admitting Provider Student in an Organized Health Care Education/Training Program; Emergency Provider Emergency Medicine; Visit Provider Internal Medicine | DX: K92.2 Gastrointestinal hemorrhage, unspecified (principal); R82.71 Bacteriuria | CPT/HCPCS: 99222 ==

== ENCOUNTER → 2024-04-27 21:08 | Outpatient (BNV) | payer MEDICARE, SELFPAY | PROVIDERS: Admitting Provider Student in an Organized Health Care Education/Training Program; Emergency Provider Emergency Medicine; Visit Provider Student in an Organized Health Care Education/Training Program | DX: D50.0 Iron deficiency anemia secondary to blood loss (chronic) (principal); K92.2 Gastrointestinal hemorrhage, unspecified; R53.1 Weakness | CPT/HCPCS: 99222; 99232; 99233; 99239; 99499 ==

== ENCOUNTER 2024-05-08 12:31 | Outpatient (AMB) | payer MEDICARE, SELFPAY ==
--- NOTE | 2024-05-08 12:42 | A.OFFPC_ITS ---
Vital Signs 05/08/24 12:43 Height 5 ft 4.5 in Weight 126 lb 0.1 oz BMI 21.3 BP 110/62 Blood Pressure Location Lt brachial Position Sitting Pulse 99 Pulse Source Pulse Oximeter Pulse Oximetry (%) 97 Oxygen Delivery Method Room Air Intake Visit Reasons: 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: No Allergies sulfamethoxazole [From Bactrim] Allergy (Severe, Verified 05/08/24 12:43) Itching trimethoprim [From Bactrim] Allergy (Severe, Verified 05/08/24 12:43) Itching cortisone [Cortisone] Allergy (Mild, Verified 05/08/24 12:43) PT STATES, hx TB IT COULD AFFECT CRYSTALS IN LUNG prochlorperazine [From Compazine] Allergy (Mild, Verified 05/08/24 12:43) LEG NUMBNESS hydrochlorothiazide Allergy (Unknown, Verified 05/08/24 12:43) RASH levofloxacin [Levaquin] Allergy (Unknown, Verified 05/08/24 12:43) Wakefulness, nausea, shaking Sulfa (Sulfonamide Antibiotics) Adverse Reaction (Intermediate, Verified 05/08/24 12:43) rash codeine Adverse Reaction (Unknown, Verified 05/08/24 12:43) NAUSEA/VOMITING chocolate Allergy (Unknown, Uncoded 05/08/24 12:43) severe headaches/vomiting Tobacco use date assessed: 03/16/24 Fall risk assessment: No Falls in past year Last assessed Fall Risk: 05/08/24 Dental Screening Dental Screen Date: 12/14/[address] [facility] Discharge 7.5 Low Blood Count HPI Details 83-year-old female with past medical his tory hypertension, impaired glucose tolerance, GERD, overactive bladder, hypercholesterolemia, and Alzheimer's dementia last seen by Dr. Burnett 03/16/2024 coming in for hospital discharge follow up. In review of the notes patient was seen in the [facility] ED 04/27/2024 for generalized weakness and dizziness. Patient was found to be profoundly anemic and was admitted. Patient was transfused 2 units PRBC.? Patient underwent endoscopy which found: IMPRESSION:?? 1. Small inflammatory-appearing polyp in the 2nd portion of duodenum.? Not biopsied nor removed.? 2. Gastric antral erythema, status post biopsy x3. 3. Hiatal hernia. 4. Esophageal diverticulum Patient was diagnosed with UGI from probable ulcer or erosive gastritis while on Xarelto. 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 May continue Xarelto in 1 week. If bleeding recurs may require repeat endoscopy or colonoscopy. Discharged home. Patient states since being discharged home her stools have been normal color and she is no longer having dark stools. Previously was having lightheadedness and dizziness which has resolved. Per discharge note patient to continue Xarelto 05/07/2024 and patient has not yet restarted. She has been taking Omeprazole daily. Does mention she has been feeling very tired which is baseline for her and she sleeps poorly due to overactive bladder. She gets up every hour to use the bathroom at night. She also mentions she has redness on her buttocks which has been present for some time now and was dressed while in the hospital with good improvement. [facility] Medical History (Updated 05/08/24 @ 13:27 by Martha Wharton PA-C) Pressure ulcer Chronic bacteriuria Urinary incontinence Bilateral hip pain Venous insufficiency of both lower extremities Bilateral knee pain Arthritis of lumbosacral spine Chronic diarrhea TIA (transient ischemic attack) UTI (urinary tract infection) Hallucination Confusion Diarrhea Supratherapeutic INR Weakness Cognitive change Pernicious anemia Osteoporosis Peripheral neuropathy Impaired fasting glucose Irritable bowel syndrome Breast cancer Thrombocytopenia Hypomagnesemia Hx of hypercalcemia History of alcohol use B12 deficiency Fatty liver, alcoholic HTN (hypertension) Hx of metabolic acidosis GERD (gastroesophageal reflux disease) Hx of deep venous thrombosis Hx of tuberculosis History of pulmonary embolism History of right breast cancer Osteoarthritis of left knee Surgical History (Updated 05/08/24 @ 00:03 by Anna Gregory) History of left knee surgery History of arthroplasty of left knee Hx of adenoidectomy History of esophagogastroduodenoscopy (EGD) History of evacuation of hematoma Hx of colonoscopy History of cataract surgery History of cystoscopy History of knee replacement procedure of right knee History of lumpectomy of right breast History of tonsillectomy H/O right mastectomy S/P SASHA-BSO (total abdominal hysterectomy and bilateral salpingo-oophorectomy) History of appendectomy Family History Father No problems noted. Mother No problems noted. Other No family history of cancer Social History Household Members: Spouse Housing: House Are you a primary child care leader to a significant other at home: No Do you presently have visiting nurse or other home services: No Alcohol intake: former Comment: aware of trip hazard Patient Tobacco Use Status: Never used Tobacco e-Cigarette/Vaping Use: Never Used Second Hand Smoke Exposure: No Advance Directives Date on File: 12/24/21 service: No Current occupational status: retired Cognitive needs: No Hearing needs: No Vision needs: Yes Questionnaire Thrive Questionnaire Date Thrive assessed: 04/28/24 AUDIT C Alcohol Use Questionnaire (AUDIT-C) 1. How often do you have a drink containing alcohol?: Monthly or less 2. How many drinks containing alcohol do you have on a typical day when you are drinking?: 1 or 2 3. How often do you have six or more drinks on one occasion?: Never Total Score: 1 CEDRIC-7 AMB Questionnaire CEDRIC-7 Date CEDRIC - 7 assessed: 12/14/23 Source: Developed by Drs. Praful Kohler, Vonda Vasquez, Jj Dewitt and colleagues, with an educational bharti from [employer]. Review of Systems Const Denies body aches, Denies chills, Reports daytime sleepiness, Reports difficulty sleeping, Denies fever(s), Denies headache(s) and Denies poor appetite Eyes Reports no additional complaints ENT Denies dysphagia, Denies dizziness, Denies headache(s) and Denies odynophagia Card Denies chest pain, Denies syncope, Denies edema, Denies irregular heart rhythm, Denies lightheadedness and Denies dyspnea Resp Denies cough and Denies dyspnea GI Denies abdominal pain, Denies melena, Denies hematochezia, Denies constipation, Denies dysphagia, Denies diarrhea, Denies nausea, Denies odynophagia and Denies vomiting Details: Nocturia Musc Reports no additional complaints and Denies abnormal gait Skin/Breast Reports system reviewed and no additional complaints, except as documented Neuro Denies abnormal gait, Denies dizziness, Denies syncope and Denies headache(s) Psych Reports no additional complaints Physical exam (Primary Care) Vital Signs: Oxygen Delivery Method Room Air 05/08/24 12:43 Tobacco/Smoking Status: Tobacco use Status Tobacco use date assessed 03/16/24 05/08/24 12:42 Patient Tobacco Use Status Never used Tobacco 05/08/24 12:42 e-Cigarette/Vaping Use Never Used 05/08/24 12:42 Thrive Assessment: Date of Thrive Assessment Date Thrive assessed 04/28/24 05/08/24 12:42 Const General: cooperative, healthy appearing, comfortable and no acute distress Orientation/consciousness: patient oriented x3 HENMT Head: Yes normocephalic Ears: hearing grossly normal bilaterally General nose exam: Normal external nose present Eyes General: appearance normal, both eyes and all related structures Conjunctivae: conjunctivae normal Neck Neck: Yes full ROM and Yes no lymphadenopathy Resp Effort & Inspection: normal respiratory effort Auscultation: clear to auscultation bilaterally, no crackles, no rales, no rhonchi and no wheezes Cardio Rate: regular rate Rhythm: regular rhythm Skin Other: Patient declined exam of buttocks and sacral area Neuro General: patient oriented x3 Gait exam (Neuro): Normal gait present Extrem General: Yes normal to inspection, Yes full ROM and No edema Psych Affect: normal affect Attitude: cooperative Insight: Good insight present (Psych) Judgement: Good judgement present (Psych) Assessment and Plan Assessment & Plan (1) Upper GI bleed: Code(s): K92.2 - Gastrointestinal hemorrhage, unspecified Plan: Patient states she has not had any dark stools, dizziness, lightheadedness, or pallor. She has not started retaking the Xarelto. Per discharge note recommended resuming Xarelto 05/07/2024. Advised patient to restart tonight and monitor stools for any evidence of bleed. Also advised patient to be aware of other symptoms of anemia. If she does experience these symptoms she should go to the ER. Continue taking omeprazole, continue to avoid NSAIDs. (2) Pressure ulcer: Code(s): L89.90 - Pressure ulcer of unspecified site, unspecified stage Plan: Patient states she has a red rash on her buttocks area. Her reports there is no open skin and is not ulcerated. She has declined exam at this time. While in the hospital area was dressed with padded dressing and she noticed some improvement in the discomfort. Padded dressing given to the patient today. She will use a barrier cream and the dressing for care of the wounds. Advised patient to rotate every half an hour to an hour to avoid further damage to the skin. Plan Thank you for allowing me to participate in the care of this patient. I personally spent 25 minutes reviewing, examining and charting on this patient. Coding Level of Care Code Est Pt Level 4 (67253) Diagnoses Upper GI bleed K92.2 Pressure ulcer L89.90
[2024-05-08 12:43] VITALS: BP 110/62; PULSE 99; O2SAT 97; BMI 21.3
== END 2024-05-08 13:13 | disposition home or self-care (01) ==
DX: K92.2 Gastrointestinal hemorrhage, unspecified (principal); L89.90 Pressure ulcer of unspecified site, unspecified stage
CPT/HCPCS: 99214

== ENCOUNTER 2024-06-10 12:42 | Inpatient (IN) | payer MEDICARE, SELFPAY ==
[2024-06-10] VITALS (11 sets, daily range): BP systolic 112–136; BP diastolic 45–60; PULSE 84–111; RESP 12–20; TEMP 36.6–36.9; O2SAT 97–100; BMI 21.7
--- NOTE | ~2024-06-10 | CT_ITS ---
EXAMINATION: CT ABDOMEN AND PELVIS WITH CONTRAST CLINICAL INFORMATION: Abdominal pain. Black stool. COMPARISON: CT abdomen and pelvis 04/04/2021 TECHNIQUE: Multidetector volumetric images were obtained from the superior aspect of the liver through the pubic symphysis following administration 85 mL of Omnipaque 350 intravenous contrast. Sagittal and coronal reformatted images were obtained on the technologist's workstation. Oral contrast: No This CT examination was performed using dose optimization techniques as appropriate, variously including the following: *Automated exposure control *Adjustment of mA and/or kV according to patient size (this includes techniques or standardized protocols for targeted exams where dose is matched to indication/reason for exam; i.e. extremities or head) *Use of iterative reconstruction technique DLP: 352 mGy-cm FINDINGS: LUNG BASES: Similar emphysematous changes and interstitial markings in the lung bases. Stable nodular pleural thickening in the left lung base likely relating to atelectasis/scarring. LIVER, GALLBLADDER, AND BILIARY TREE: The liver is normal in size, shape with mildly decreased attenuation which can be seen with hepatic steatosis. No focal hepatic lesion or biliary ductal dilatation is present. The gallbladder is physiologically distended with mural hyperenhancement and multiple gallstones. Common bile duct is mildly dilated measuring up to 1 cm in its distal aspect with multiple radiodense filling defects likely representing choledocholithiasis. No definite pericholecystic inflammatory changes or significant gallbladder wall thickening. PANCREAS: Unremarkable. SPLEEN: Unremarkable. ADRENAL GLANDS: Unremarkable. KIDNEYS AND URETERS: Again noted atrophic right kidney with cortical scarring. The left kidney is normal in size shape and attenuation. Simple cyst in the lower pole of the left kidney, for which no dedicated follow-up imaging is required. No renal calculus or hydroureteronephrosis. Evaluation of the distal right ureter slightly limited due to streak artifacts from surgical clips in the right pelvis. BLADDER: No significant bladder wall thickening. No bladder calculi. Punctate focus of gas along the anterior lumen may be related to catheterization. GASTROINTESTINAL TRACT: Stomach is non-dilated. There is circumferential wall thickening of the gastric pylorus. No dilated small bowel loops. Prominent submucosal fat in the proximal colon, similar to prior exams. Scattered colonic diverticulosis without CT evidence of diverticulitis. No inflammatory changes in the expected location of the appendix. ABDOMINAL WALL: No significant hernia is appreciated. LYMPH NODES: No enlarged abdominopelvic lymph nodes by size criteria. VASCULAR: The abdominal aorta is nonaneurysmal with moderate aortoiliac atherosclerosis. PELVIC VISCERA: The uterus is not visualized. No adnexal mass lesions. Multiple surgical clips in the right pelvis. OSSEOUS STRUCTURES: No acute or suspicious osseous abnormality. Multilevel degenerative changes of the spine. CT/CT abdomen pelvis w IV con IMPRESSION: Circumferential wall thickening of the gastric pylorus. Findings can be seen with gastritis in the appropriate context. Correlation with upper GI endoscopy can be considered as clinically indicated. Scattered colonic diverticulosis without CT evidence of acute diverticulitis. Cholelithiasis with gallbladder wall hyperenhancement. No definite secondary signs of acute cholecystitis. Further evaluation with dedicated right upper quadrant ultrasound can be considered as clinically indicated. Mildly dilated common bile duct with multiple filling defects as detailed concerning for choledocholithiasis.
--- NOTE | ~2024-06-10 | MR_ITS ---
EXAMINATION: MR ABDOMEN WITHOUT CONTRAST CLINICAL INFORMATION: Abnormal CT scan dilated biliary duct COMPARISON: None available. TECHNIQUE: MR abdomen is performed without gadolinium contrast. Multiplanar MR images through the abdomen were obtained on a high-field scanner without IV contrast. Heavily T2 weighted MRCP sequences of the biliary tree were obtained in multiple planes. FINDINGS: LUNG BASES: There is pleural base thickening. The left lung base LIVER, GALLBLADDER, AND BILIARY TREE: Liver is of low attenuation due to hepatic steatosis with signal drop in/ out of phase of phase sequences . There are gallstones present in the dependent portion of gallbladder fundus. CBD is dilated distally and measures approximately 1.3 cm being occluded by multiple low signal intensity foci consistent with choledocholithiasis measurable foci approximately 0.8 cm. PANCREAS: Unremarkable. SPLEEN: Unremarkable. ADRENAL GLANDS: Unremarkable. KIDNEYS AND URETERS: Right kidney is small, atrophic but functioning with trace of perinephric fluid. Left kidney is unremarkable. GASTROINTESTINAL TRACT: No bowel obstruction. No ascites or fluid collection. ABDOMINAL WALL: No significant hernia is appreciated. LYMPH NODES: No lymphadenopathy. VASCULAR: Unremarkable. OSSEOUS STRUCTURES: Marrow signal normal. MR/MR MRCP IMPRESSION: 1. Choledocholithiasis with dilatation of the distal CBD. 2. Cholelithiasis. 3. Hepatic steatosis. 4. Atrophic right kidney.
--- NOTE | 2024-06-10 12:54 | ED.ABDPAIN ---
HPI - Abdominal Pain General Chief Complaint: GI Bleed Stated Complaint: black stool Time Seen by Provider: 06/10/24 13:30 Source: patient Mode of arrival: ambulatory Limitations: no limitations History of Present Illness ED Provider: Mary SILVA narrative: 83 year old female hx of mood disorder, history of PE on Xarelto, Alzheimer's dementia, gastroesophageal reflux disease, recurrent UTI, history of breast cancer (2006) in remission, peripheral neuropathy presents w/ painful right flank/ abd pain ( sharp prickley pain intermittent), dark stool, near syncope since this morning w/ a/c shortness of breath She was recently admitted for anemia and lower gi bleeding she was admitted 04/26-04/27/2024 and then again 04/27/2024- 04/30/2024 here at [facility]. Did require transfusions. Denies cathryn blood in stool, hematemisis, hematuria, nausea, vomiting, abd pain, fevers, chills, cp, changes in urine or stool Related Data Home Medications ?Medication ?Instructions ?Recorded ?Confirmed omeprazole 20 mg capsule,delayed 20 mg PO DAILY@0630 01/08/22 04/27/24 release rivaroxaban 20 mg tablet (Xarelto) 20 mg PO BEDTIME 04/27/24 04/27/24 Previous Rx's ?Medication ?Instructions ?Recorded right mastectomy bra #2 ea 10/22/22 folic acid 1 mg tablet 1 mg PO DAILY #90 tabs 09/02/23 gabapentin 300 mg capsule 300 mg PO BEDTIME 90 days #90 caps 09/02/23 quetiapine 25 mg tablet (Seroquel) 25 mg PO DAILY #90 tabs 12/05/23 metoprolol tartrate 25 mg tablet 12.5 mg (1/2 x 25 mg) PO BID 90 03/03/24 days #90 tabs Allergies Allergy/AdvReac Type Severity Reaction Status Date / Time sulfamethoxazole Allergy Severe Itching Verified 06/10/24 12:57 [From Bactrim] trimethoprim [From Bactrim] Allergy Severe Itching Verified 06/10/24 12:57 cortisone [Cortisone] Allergy Mild PT STATES, Verified 06/10/24 12:57 hx TB IT COULD AFFECT CRYSTALS IN LUNG prochlorperazine Allergy Mild LEG Verified 06/10/24 12:57 [From Compazine] NUMBNESS hydrochlorothiazide Allergy Unknown RASH Verified 06/10/24 12:57 levofloxacin [Levaquin] Allergy Unknown Wakefulness, Verified 06/10/24 12:57 nausea, shaking Sulfa (Sulfonamide AdvReac Intermediate rash Verified 06/10/24 12:57 Antibiotics) codeine AdvReac Unknown NAUSEA/VOMI Verified 06/10/24 12:57 TING chocolate Allergy Unknown severe Uncoded 05/08/24 12:43 headaches/vomiting Review of Systems Review of Systems Yes all other systems are reviewed and are negative [facility] Past Medical History Attestation statement: The following information was validated with the patient. Source: old records reviewed and nursing notes reviewed Medical History (Updated 06/10/24 @ 15:34 by MIRTA Kirby) Pressure ulcer Chronic bacteriuria Urinary incontinence Bilateral hip pain Venous insufficiency of both lower extremities Bilateral knee pain Arthritis of lumbosacral spine Chronic diarrhea TIA (transient ischemic attack) UTI (urinary tract infection) Hallucination Confusion Diarrhea Supratherapeutic INR Weakness Cognitive change Pernicious anemia Osteoporosis Peripheral neuropathy Impaired fasting glucose Irritable bowel syndrome Breast cancer Thrombocytopenia Hypomagnesemia Hx of hypercalcemia History of alcohol use B12 deficiency Fatty liver, alcoholic HTN (hypertension) Hx of metabolic acidosis GERD (gastroesophageal reflux disease) Hx of deep venous thrombosis Hx of tuberculosis History of pulmonary embolism History of right breast cancer Osteoarthritis of left knee Surgical History (Updated 05/08/24 @ 00:03 by Anna Gregory) History of left knee surgery History of arthroplasty of left knee Hx of adenoidectomy History of esophagogastroduodenoscopy (EGD) History of evacuation of hematoma Hx of colonoscopy History of cataract surgery History of cystoscopy History of knee replacement procedure of right knee History of lumpectomy of right breast History of tonsillectomy H/O right mastectomy S/P SASHA-BSO (total abdominal hysterectomy and bilateral salpingo-oophorectomy) History of appendectomy Family History Family History Father No problems noted. Mother No problems noted. Other No family history of cancer Social History Social History Household Members: Spouse Housing: House Are you a primary behavioral health care coordinator to a significant other at home: No Do you presently have visiting nurse or other home services: No Alcohol intake: former Comment: aware of trip hazard Patient Tobacco Use Status: Never used Tobacco e-Cigarette/Vaping Use: Never Used Second Hand Smoke Exposure: No Advance Directives: Yes Advance Directives on File: Yes Advance Directives Date on File: 12/24/21 service: No Current occupational status: retired Cognitive needs: No Hearing needs: No Vision needs: Yes Physical Exam ED Vital Signs: Vital Signs - 24 hr 06/10/24 12:52 06/10/24 13:46 06/10/24 15:20 Temperature 98.4 F 97.8 F Pulse Rate 100 96 99 Respiratory Rate 20 12 Blood Pressure 114/45 L 120/55 L 112/51 L Pulse Oximetry 97 100 Oxygen Delivery Method Room Air Room Air 06/10/24 15:21 06/10/24 15:23 Temperature Pulse Rate 99 111 H Respiratory Rate Blood Pressure 120/60 126/55 L Pulse Oximetry Oxygen Delivery Method BMI result Body Mass Index 21.7 vss Appearance: Alert.? Oriented X3.? No acute distress.? Head: Normocephalic, atraumatic, no step-offs or deformities Eyes: Pupils equal, round and reactive to light.? CVS: Normal heart rate and rhythm.? Pulses normal.? Respiratory: No respiratory distress.? Breath sounds normal.? Abdomen: Soft and nontender.? Skin: Skin warm and dry.? Normal skin color.? Normal skin turgor.? Extremities: No lower extremity edema.? No calf ttp. 5/5 strength to bilateral upper and lower extremities Back: No midline tenderness, no C-spine tenderness, full range of motion, no CVA tenderness bilaterally Neuro: Oriented X 3.? No motor deficit.? No sensory deficit. CN 2-12 intact Course Course Course Narrative: This is a Rapid Medical Exam performed in triage by Yessica Torres PA-C. Full HPI, ROS and PE to be performed by primary ED provider. 82-year-old female with PMHx mood disorder, history of PE on Xarelto, Alzheimer's dementia, gastroesophageal reflux disease, recurrent UTI, history of breast cancer (2006) in remission, peripheral neuropathy, anemia w/recent admission to our facility for GI bleed c/o black stool x today w/lightheadedness and near syncope. Also reports R sided abdominal pain PE: pale, abdomen soft w/R sided abdominal ttp Plan: EKG, labs, UA, occult stool Reevaluation(s) Reevaluation #1: H&H down trending from where she was when dc repeat cbc today ordered and pending. Chemistry slight bump in BUN/creatinine fluids ordered also + orthos based of sx. Trop negative. OBS + . CT abd and pelvis pending. Time: 15:35 Reevaluation #2: Plan hospital admission. Time: 15:35 Reevaluation #3: Per gi hold xerlto, possible scope later this week if H&H drops. They will follow while in the hospital. Time: 15:45 Medical Decision Making Medical Decision Making [facility] Narrative: 83 yo f presents w/ near syncope w/ some sob and black tarry stools PE - TP to R flank region . No saddle anesthesias. No LE weakness. hx and pe concerning for upper gi bleed more likley than lower gi bleed. Will rule out electrolyte abnormalities. Will rule out anemia requiring transfusion. No sign of acute abdomen, pancreatitis, cholecysitis, appendicitis. Flank pain likely msk unlikely pylo, cord compression, cauda equina. Sob likley from anemia unlikely acs, pe, chf. Plan- obs, urine, labs, abd scan Differential Diagnosis Differential Diagnoses: The differential diagnosis associated with the presentation includes hx and pe concerning for upper gi bleed more likley than lower gi bleed. Will rule out electrolyte abnormalities. Will rule out anemia requiring transfuison. No sign of acute abdomen, pancreatitis, cholecysitis, appendicitis. Flank pain likely msk unlikely pylo, cord compression, cauda equina. Sob likley from anemia unlikely acs, pe, chf. Admission/Observation Consideration of admission/observation: Escalation of care including admission/observation considered Lab Data [facility] Lab Attestation statement: I reviewed the patient's lab results. 06/10/24 13:22 06/10/24 13:22 Labs: Lab Results 06/10/24 06/10/24 06/10/24 Range/Units 13:22 14:09 15:18 WBC 5.7 (4.8-10.8) X10*3/uL RBC 2.96 L (4.20-5.50) X10*6/uL Hgb 8.2 L (12.0-16.0) g/dl Hct 26.7 L (37.0-47.0) % MCV 90.2 (80.0-98.0) fL MCH 27.7 (27.0-33.0) pg MCHC 30.7 L (31.0-35.0) g/dl RDW 21.8 H (11.0-16.0) % Plt Count 188 D (160-400) X10*3/uL MPV 10.2 (9.4-12.3) fL Immature Gran % (Auto) 0.4 (0.0-0.4) % Neut % (Auto) 66.4 (45-73) % Lymph % (Auto) 17.9 L (20-40) % Morton % (Auto) 14.2 H (2-11) % Eos % (Auto) 0.4 (0-4) % Baso % (Auto) 0.7 (0-2) % Lymph # (Auto) 1.0 L (1.2-4.9) X10*3/uL Morton # (Auto) 0.8 (0.1-1.2) X10*3/uL Eos # (Auto) 0.0 (0.0-0.4) X10*3/uL Baso # (Auto) 0.0 (0.0-0.2) X10*3/uL Abs Immat Gran (auto) 0.02 (0.00-0.03) X10*3/uL Absolute Neuts (auto) 3.8 (2.0-8.3) x10*3/uL Absolute Nucleated RBC 0.000 (0.0-0.012) X10*3/uL Nucleated RBC % (auto) 0.0 (0.0-0.2) /100WBC PT 13.7 H (11.1-13.3) SEC INR 1.1 (0.9-1.1) APTT 30.6 (26.0-36.8) SEC Sodium 139 (135-145) mmol/L Potassium 4.0 (3.3-5.1) mmol/L Chloride 106 (96-108) mmol/L Carbon Dioxide 19 L (22-29) mmol/L Anion Gap 18 (12-20) BUN 22 H (9-16) mg/dL Creatinine 1.27 (0.5-1.4) mg/dL Estim Creat Clear Calc 29.9 Estimated GFR 40 Random Glucose 115 (60-115) mg/dL Calcium 9.2 D (8.4-10.2) mg/dL Magnesium 2.2 (1.6-2.6) mg/dL Total Bilirubin 0.4 (0.0-1.0) mg/dL Direct Bilirubin 0.2 (0.0-0.5) mg/dL AST 20 (5-31) U/L ALT 10 (0-31) U/L Alkaline Phosphatase 113 (39-117) U/L Troponin I High Sens 2.7 (<3.5-17.0) ng/L Total Protein 7.1 (6.5-8.0) g/dL Albumin 3.7 (3.5-5.0) g/dL Lipase 41 (8-78) U/L Stool Occult Blood POSITIVE (NEGATIVE) Blood Type O Positive Antibody Screen POSITIVE Antibody Identification Inconclusive Crossmatch (AHG) See Detail Independent Interpretation I performed an independent interpretation of an: EKG (Vent. Rate : 103 BPM Atrial Rate : 103 BPM P-R Int : 134 ms QRS Dur : 086 ms QT Int : 360 ms P-R-T Axes : 057 013 056 degrees QTc Int : 471 ms Sinus tachycardia Otherwise normal ECG When compared with ECG of 27-APR-2024 19:22, No significant change was found ) and CT Scan Radiology Impression Discussion of test interpretation with radiology: I have reviewed the radiologist's reading. Critical Care Time Critical Care Time Critical Care Time: Yes Total Critical Care Time: 35 Attestation: I attest to this time spent taking care of the patient, obtaining history, physical, reviewing labs, imaging, speaking to my attending, speaking to specialist. Discharge Plan Discharge Clinical Impression: Current use of anticoagulant therapy, Acute GI bleeding, Orthostatic hypotension, Near syncope Patient Disposition: Admitted As Inpatient Print Language: Prydeinig
--- NOTE | 2024-06-10 12:56 | ECG_ITS ---
Test Reason : ANEMIA Blood Pressure : / mmHG Vent. Rate : 103 BPM Atrial Rate : 103 BPM P-R Int : 134 ms QRS Dur : 086 ms QT Int : 360 ms P-R-T Axes : 057 013 056 degrees QTc Int : 471 ms Sinus tachycardia Otherwise normal ECG When compared with ECG of 27-APR-2024 19:22, Heart rate has increased Referred By: Yessica Torres Electronically Signed By:KAROL SCOTT
[2024-06-10 13:26] LABS: MANUAL DIFF FLAG NO
[2024-06-10 13:27] LABS: Basophils Percent Auto 0.7 % (0-2); Eosinophils Percent Auto 0.4 % (0-4); Hematocrit 26.7 % (37.0-47.0); Hemoglobin 8.2 g/dl (12.0-16.0); Imm Gran Abs Auto 0.02 X10*3/uL (0.00-0.03); Imm Gran Pct Auto 0.4 % (0.0-0.4); Lymphocytes Percent Auto 17.9 % (20-40); Mean Corpuscular HGB Conc 30.7 g/dl (31.0-35.0); Mean Corpuscular Hemoglobin 27.7 pg (27.0-33.0); Mean Corpuscular Volume 90.2 fL (80.0-98.0); Mean Platelet Volume 10.2 fL (9.4-12.3); Monocytes Absolute Auto 0.8 X10*3/uL (0.1-1.2); Monocytes Percent Auto 14.2 % (2-11); Neutrophils Absolute Auto 3.8 x10*3/uL (2.0-8.3); Neutrophils Percent Auto 66.4 % (45-73); Platelet Count 188 X10*3/uL (160-400); Red Blood Count 2.96 X10*6/uL (4.20-5.50); Red Cell Distribution Width 21.8 % (11.0-16.0); White Blood Count 5.7 X10*3/uL (4.8-10.8)
[2024-06-10 13:33] LABS: INTERNATIONAL NORM RATIO 1.1 (0.9-1.1); Prothrombin Time 13.7 SEC (11.1-13.3)
[2024-06-10 13:36] LABS: Partial Thromboplastin Time 30.6 SEC (26.0-36.8)
[2024-06-10 13:49] LABS: Alanine Aminotransferase 10 U/L (0-31); Albumin Level 3.7 g/dL (3.5-5.0); Alkaline Phosphatase 113 U/L (39-117); Anion Gap 18 (12-20); Aspartate Amino Transferase 20 U/L (5-31); Bilirubin Direct 0.2 mg/dL (0.0-0.5); Bilirubin Total 0.4 mg/dL (0.0-1.0); Blood Urea Nitrogen 22 mg/dL (9-16); Calcium 9.2 mg/dL (8.4-10.2); Carbon Dioxide 19 mmol/L (22-29); Chloride 106 mmol/L (96-108); Creatinine Clr Calc Pharmacy 29.9; Estimated Glomerular Filt Rate 40; Glucose Random 115 mg/dL (60-115); Lipase 41 U/L (8-78); Magnesium 2.2 mg/dL (1.6-2.6); Sodium 139 mmol/L (135-145); Total Protein 7.1 g/dL (6.5-8.0)
[2024-06-10 13:55] LABS: Troponin-I High Sensitivity 2.7 ng/L (<3.5-17.0)
[2024-06-10 15:21] LABS: OBS Int Ctl Valid YES; OBS1 POSITIVE (NEGATIVE)
--- NOTE | 2024-06-10 16:17 | PHA.MEDREC ---
Addendum entered by Duke Dave RPh 06/10/24 16:19: RPcameron reviewed Original Note: Pharmacy Consult ? Medication Reconciliation Pharmacy has completed the medication reconciliation. Spoke with patient to confirm medications.
[2024-06-10 16:19] LABS: MANUAL DIFF FLAG NO
[2024-06-10 16:21] LABS: Basophils Percent Auto 0.7 % (0-2); Eosinophils Percent Auto 0.7 % (0-4); Hematocrit 23.8 % (37.0-47.0); Hemoglobin 7.2 g/dl (12.0-16.0); Imm Gran Abs Auto 0.02 X10*3/uL (0.00-0.03); Imm Gran Pct Auto 0.3 % (0.0-0.4); Lymphocytes Absolute Auto 1.3 X10*3/uL (1.2-4.9); Lymphocytes Percent Auto 21.6 % (20-40); Mean Corpuscular HGB Conc 30.3 g/dl (31.0-35.0); Mean Corpuscular Hemoglobin 27.5 pg (27.0-33.0); Mean Corpuscular Volume 90.8 fL (80.0-98.0); Mean Platelet Volume 10.5 fL (9.4-12.3); Monocytes Absolute Auto 1.1 X10*3/uL (0.1-1.2); Monocytes Percent Auto 17.8 % (2-11); Neutrophils Absolute Auto 3.6 x10*3/uL (2.0-8.3); Neutrophils Percent Auto 58.9 % (45-73); Platelet Count 161 X10*3/uL (160-400); Red Blood Count 2.62 X10*6/uL (4.20-5.50); Red Cell Distribution Width 21.6 % (11.0-16.0)
[2024-06-10] MEDS: 0.9 % Sodium Chloride 1,000 ML 999 ML IV (16:34)
[2024-06-10 17:09] LABS: Appearance Urine Clear; Color Urine Yellow; Glucose Urine UA Negative (Negative); Leukocyte Esterase Urine Small (1+) (Negative); Nitrite Urine Negative (Negative); Specific Gravity - Urine >= 1.030 (1.005-1.025); UMIC TRIGGER UACC YES; Urine Blood Negative (Negative); Urine Ketones Trace mg/dL (Negative); Urine Protein Negative (Neg-Trace)
--- NOTE | 2024-06-10 17:21 | PM.IMHP ---
History of Present Illness Date of Service: 06/10/24 Attending physician on admission: Ashok Rahman Chief Complaint: Melena, near-syncope Ilmfsf-xcx-hxwy-old female with pertinent history of mood disorder, history of PE on Xarelto, Alzheimer's dementia, gastroesophageal reflux disease, recurrent UTI, history of breast cancer (2006) in remission, peripheral neuropathy presented to the ED earlier today for evaluation of an episode of near syncope followed by an episode of melena that occurred this morning. The patient was recently admitted to [facility] from 04/27-04/30 due to acute upper GI bleed and her Xarelto was recommended to be held for an additional week which she reports she was compliant with. She states her stool returned to normal color until this morning when she had a bowel movement that was black and tarry. No bright red blood noted. She has had some abdominal cramping but no severe pain, nausea, vomiting. She states she has been experiencing some dyspnea on exertion especially on stairs as well as lightheadedness with position changes. Denies any fevers, chills, palpitations, syncope, chest pain. No vision changes. Since arrival, vital signs are stable, no hypotension though mildly tachycardic. Orthostatic vital signs are negative. On arrival H/H 8.2/26.7% drop to 7.2/23.8% on 3 hour recheck. Creatinine baseline, BUN elevated at 22, electrolyte levels normal except for CO2 19. CT abdomen pelvis shows circumferential wall thickening of the gastric pylorus which can be seen with gastritis as well as colonic diverticulosis without acute diverticulitis. There are also cholelithiasis with gallbladder wall hyperenhancement but no definitive signs of cholecystitis and mildly dilated common bile duct with multiple filling defects concerning for choledocholithiasis. She did have recent EGD performed on 04/30 which showed duodenal inflammatory polyp, hiatal hernia, and mild gastritis. Subsequent biopsies shows reactive changes and minimal chronic gastritis with a few neutrophils but negative for H pylori, intestinal metaplasia and dysplasia. In the ED, given 1 L IVF and transfused 1 unit packed red blood cells. Review of Systems Review of Systems: Yes all other systems are reviewed and are negative [facility] History Pressure ulcer Chronic bacteriuria Urinary incontinence Bilateral hip pain Venous insufficiency of both lower extremities Bilateral knee pain Arthritis of lumbosacral spine Chronic diarrhea TIA (transient ischemic attack) UTI (urinary tract infection) Hallucination Confusion Diarrhea Supratherapeutic INR Weakness Cognitive change Pernicious anemia Osteoporosis Peripheral neuropathy Impaired fasting glucose Irritable bowel syndrome Breast cancer Thrombocytopenia Hypomagnesemia Hx of hypercalcemia History of alcohol use B12 deficiency Fatty liver, alcoholic HTN (hypertension) Hx of metabolic acidosis GERD (gastroesophageal reflux disease) Hx of deep venous thrombosis Hx of tuberculosis History of pulmonary embolism History of right breast cancer Osteoarthritis of left knee Family History Father No problems noted. Mother No problems noted. Other No family history of cancer Surgical History History of left knee surgery History of arthroplasty of left knee Hx of adenoidectomy History of esophagogastroduodenoscopy (EGD) History of evacuation of hematoma Hx of colonoscopy History of cataract surgery History of cystoscopy History of knee replacement procedure of right knee History of lumpectomy of right breast History of tonsillectomy H/O right mastectomy S/P SASHA-BSO (total abdominal hysterectomy and bilateral salpingo-oophorectomy) History of appendectomy Social History Household Members: Spouse Housing: House Are you a primary life care planner to a significant other at home: No Do you presently have visiting nurse or other home services: No Alcohol intake: former Comment: aware of trip hazard Patient Tobacco Use Status: Never used Tobacco Smoked in Last 30 Days: No e-Cigarette/Vaping Use: Never Used Second Hand Smoke Exposure: No Use of substances other than those prescribed or required for medical reasons: No Advance Directives: Yes Advance Directives on File: Yes Advance Directives Date on File: 12/24/21 service: No Current occupational status: retired Cognitive needs: No Hearing needs: No Vision needs: Yes Meds Allergies Allergy/AdvReac Type Severity Reaction Status Date / Time sulfamethoxazole Allergy Severe Itching Verified 06/10/24 12:57 [From Bactrim] trimethoprim [From Bactrim] Allergy Severe Itching Verified 06/10/24 12:57 cortisone [Cortisone] Allergy Mild PT STATES, Verified 06/10/24 12:57 hx TB IT COULD AFFECT CRYSTALS IN LUNG prochlorperazine Allergy Mild LEG Verified 06/10/24 12:57 [From Compazine] NUMBNESS hydrochlorothiazide Allergy Unknown RASH Verified 06/10/24 12:57 levofloxacin [Levaquin] Allergy Unknown Wakefulness, Verified 06/10/24 12:57 nausea, shaking Sulfa (Sulfonamide AdvReac Intermediate rash Verified 06/10/24 12:57 Antibiotics) codeine AdvReac Unknown NAUSEA/VOMI Verified 06/10/24 12:57 TING chocolate Allergy Unknown severe Uncoded 05/08/24 12:43 headaches/vomiting Active Medications: Current Medications Acetaminophen (Acetaminophen 325 Mg Tablet) 650 mg PO Q6H PRN PRN Reason: Pain, Mild (Pain Scale 1-3), fever or headache Calcium Carbonate (Calcium Carbonate 750 Mg Tab.Chew) 750 mg PO Q4H PRN PRN Reason: Heartburn Gabapentin (Gabapentin 300 Mg Capsule) 300 mg PO BEDTIME [facility] Sodium Chloride (Ns) 1,000 mls @ 80 mls/hr IVCONT .[id number] [facility] Lidocaine (Lidocaine 5 % Ointment 35 Gm) 1 appl TOPICAL Q6H PRN; Protocol PRN Reason: right flank pain Magnesium Hydroxide (Milk Of Magnesia 30 Ml Oral.Susp) 30 ml PO DAILY PRN PRN Reason: Constipation Melatonin (Melatonin 3 Mg Tablet) 6 mg PO BEDTIME PRN PRN Reason: Insomnia Metoprolol Tartrate (Metoprolol Tartrate 12.5 Mg Halftab) 12.5 mg PO BID [facility]; Protocol Omeprazole (Omeprazole 20 Mg Capsule.Dr) 20 mg PO DAILY@0630 [facility] Pantoprazole Sodium (Pantoprazole Sodium 40 Mg/10 Ml Vial) 40 mg IVPUSH BID@0630,1630 [facility] Quetiapine Fumarate (Quetiapine Fumarate 25 Mg Tablet) 25 mg PO DAILY [facility] Sodium Chloride (0.9 % Sodium Chloride Flush 3 Ml Syringe) 3 ml IVFLUSH QSHIFT [facility] Home Medications ?Medication ?Instructions ?Recorded ?Confirmed ?Last Taken ?Type omeprazole 20 mg capsule,delayed 20 mg PO DAILY@0630 01/08/22 06/10/24 06/10/24 History release rivaroxaban 20 mg tablet (Xarelto) 20 mg PO BEDTIME 04/27/24 06/10/24 06/09/24 History folic acid 800 mcg tablet 0.8 mg PO DAILY 06/10/24 06/10/24 06/10/24 History Physical Exam Vital Signs and Narrative: Vital Signs: Last Vital Signs Temp 97.8 F 06/10/24 13:46 Pulse 102 H 06/10/24 16:49 Resp 16 06/10/24 16:49 BP 133/55 L 06/10/24 16:49 Pulse Ox 100 06/10/24 16:49 O2 Del Method Room Air 06/10/24 16:49 BMI result Body Mass Index 21.7 Constitutional - Awake and Alert, No apparent distress Eyes - PERRLA, EOMI Cardiovascular - S1S2, RRR, No edema Respiratory - Normal lung expansion, Normal respiratory effort, No respiratory distress, CTA bilaterally Gastrointestinal - NT / ND; +BS; No rebound or guarding Extremities - no calf tenderness bilaterally, no swelling Skin - Warm/Dry Neurological - Alert & oriented x3 Psychological - Appropriate affect Results Labs 06/10/24 16:15 06/10/24 13:22 Labs: Laboratory Results - last 24 hr 06/10/24 06/10/24 06/10/24 13:22 14:09 15:18 MCV 90.2 MCH 27.7 MCHC 30.7 L RDW 21.8 H Plt Count 188 D MPV 10.2 Immature Gran % (Auto) 0.4 Neut % (Auto) 66.4 Lymph % (Auto) 17.9 L Wright % (Auto) 14.2 H Eos % (Auto) 0.4 Baso % (Auto) 0.7 Lymph # (Auto) 1.0 L Wright # (Auto) 0.8 Eos # (Auto) 0.0 Baso # (Auto) 0.0 Abs Immat Gran (auto) 0.02 Absolute Neuts (auto) 3.8 Absolute Nucleated RBC 0.000 Nucleated RBC % (auto) 0.0 PT 13.7 H INR 1.1 APTT 30.6 Anion Gap 18 Estim Creat Clear Calc 29.9 Estimated GFR 40 Random Glucose 115 Calcium 9.2 D Magnesium 2.2 Total Bilirubin 0.4 Direct Bilirubin 0.2 AST 20 ALT 10 Alkaline Phosphatase 113 Troponin I High Sens 2.7 Total Protein 7.1 Albumin 3.7 Lipase 41 Stool Occult Blood POSITIVE Blood Type O Positive Antibody Screen POSITIVE Antibody Identification Inconclusive Crossmatch (AHG) See Detail 06/10/24 16:15 MCV 90.8 MCH 27.5 MCHC 30.3 L RDW 21.6 H Plt Count 161 MPV 10.5 Immature Gran % (Auto) 0.3 Neut % (Auto) 58.9 Lymph % (Auto) 21.6 Wright % (Auto) 17.8 H Eos % (Auto) 0.7 Baso % (Auto) 0.7 Lymph # (Auto) 1.3 Wright # (Auto) 1.1 Eos # (Auto) 0.0 Baso # (Auto) 0.0 Abs Immat Gran (auto) 0.02 Absolute Neuts (auto) 3.6 Absolute Nucleated RBC 0.000 Nucleated RBC % (auto) 0.0 PT INR APTT Anion Gap Estim Creat Clear Calc Estimated GFR Random Glucose Calcium Magnesium Total Bilirubin Direct Bilirubin AST ALT Alkaline Phosphatase Troponin I High Sens Total Protein Albumin Lipase Stool Occult Blood Blood Type Antibody Screen Antibody Identification Crossmatch ([facility]) Imaging Radiologist's Impressions: Impressions Abdomen/Pelvis CT 06/10/24 14:57 IMPRESSION: Circumferential wall thickening of the gastric pylorus. Findings can be seen with gastritis in the appropriate context. Correlation with upper GI endoscopy can be considered as clinically indicated. Scattered colonic diverticulosis without CT evidence of acute diverticulitis. Cholelithiasis with gallbladder wall hyperenhancement. No definite secondary signs of acute cholecystitis. Further evaluation with dedicated right upper quadrant ultrasound can be considered as clinically indicated. Mildly dilated common bile duct with multiple filling defects as detailed concerning for choledocholithiasis. Assessment and Plan (1) Near syncope: Status: Acute (2) Acute GI bleeding: Status: Acute Plan Tjkhuk-[id number]-mgdc-old female with pertinent history of mood disorder, history of PE on Xarelto, Alzheimer's dementia, gastroesophageal reflux disease, recurrent UTI, history of breast cancer (2006) in remission, peripheral neuropathy admitted for acute gi bleed with acute symptomatic blood loss anemia #acute gi bleed with acute symptomatic blood loss anemia -On arrival H/H 8.2/26.7% drop to 7.2/23.8% on 3 hour recheck -transfuse 1 unit prbc -hold xarelto -iv ppi -clear liquids -gi consult -follow h/h -monitor on telemetry # history of PE -hold Xarelto due to above # abnormal CT finding-question choledocholithiasis -LFTs wnl, no ruq pain -us ordered # Alzheimer's dementia with mood disorder -continue quetiapine # GERD -on IV PPI # unspecified peripheral neuropathy -continue gabapentin DVT prophylaxis-compression due to GI bleed Full code Patient requires inpatient stay at least 2 midnights for management of an acute GI bleed with symptomatic blood loss anemia requiring blood transfusion, close monitoring of hemodynamics, expert consultation and probable surgical intervention Quality Stroke Does the patient have a stroke diagnosis?: No VTE Prior VTE?: No VTE Risk Level:: Medical - moderate - high VTE Device Contraindication: N/A - Device Ordered VTE Drug Contraindication: Treatment Not Indicated
[2024-06-10 17:49] LABS: Bacteria Urine 4+ (None Seen); Hyaline Casts Urine 0-2 /LPF (0-2); RBC Urine 0-2 /HPF (0-2); UACC Culture Trigger YES; WBC Urine 21-50 /HPF (0-5)
[2024-06-10] MEDS: Pantoprazole Sodium 40 MG/10 ML VIAL IVPUSH (18:37)
[2024-06-10] MEDS: 0.9 % Sodium Chloride 1,000 ML 80 ML IVCONT (18:37)
--- NOTE | 2024-06-10 18:52 | PM.EVENT ---
Event Note Date of Service: 06/10/24 Event Note: GI Consult received and I will see the patient on 06/11. She is known to me from her admission in early 04/2024. I discussed things with her ER provider and reviewed her chart. Looks like her two main issues are that of recurrent GI bleeding with anemia, and gallstones with probable choledocholithiasis. Once she has been off her Xarelto for 48 to 72 hours we could proceed with an eventual EGD/Colonoscopy and ERCP later in the week. In addition to holding her Xarelto, I would recommend transfusing her as needed to maintain a Hgb of at least 9.0, continuing her PPI, continue clear liquids, and obtain a surgery consult due to potential need for a CCY once the other GI procedures have been completed. I shall order a MRI with MRCP for further evaluation of her GB and Biliary tract, and cancel the U/S. Thanks Time Spent With Patient Time: Total time managing care of this patient today ____ minutes.
--- NOTE | 2024-06-10 19:54 | PC.NURSE ---
this rn assumed care of pt, pt a&ox4, respirations even and unlabored. pt assisted onto bedpan, pt had small about of dark brown watery stool. initial 15 minute blood transfusion began at this time, no signs of distress, lung sounds clear bilaterally.
[2024-06-10 20:10] LABS: Hemoglobin 7.1 g/dl (12.0-16.0)
[2024-06-10] MEDS: Gabapentin 300 MG CAPSULE PO (20:58)
--- NOTE | 2024-06-10 21:00 | PC.NURSE ---
pt BP noted to be soft, per hold BP medications at this time.
[2024-06-11 04:00] VITALS: BP 150/78; PULSE 107; RESP 18; TEMP 36.4; O2SAT 98
[2024-06-11] MEDS: Pantoprazole Sodium 40 MG/10 ML VIAL IVPUSH ×2 (05:21→15:51)
[2024-06-11 06:12] LABS: MANUAL DIFF FLAG NO
[2024-06-11 06:30] LABS: Basophils Percent Auto 0.8 % (0-2); Eosinophils Percent Auto 0.8 % (0-4); Hemoglobin 8.4 g/dl (12.0-16.0); Imm Gran Abs Auto 0.01 X10*3/uL (0.00-0.03); Imm Gran Pct Auto 0.2 % (0.0-0.4); Lymphocytes Absolute Auto 0.9 X10*3/uL (1.2-4.9); Lymphocytes Percent Auto 18.7 % (20-40); Mean Corpuscular HGB Conc 31.1 g/dl (31.0-35.0); Mean Corpuscular Hemoglobin 27.5 pg (27.0-33.0); Mean Corpuscular Volume 88.5 fL (80.0-98.0); Mean Platelet Volume 10.7 fL (9.4-12.3); Monocytes Absolute Auto 0.8 X10*3/uL (0.1-1.2); Monocytes Percent Auto 17.4 % (2-11); Neutrophils Percent Auto 62.1 % (45-73); Platelet Count 161 X10*3/uL (160-400); Red Blood Count 3.05 X10*6/uL (4.20-5.50); Red Cell Distribution Width 23.9 % (11.0-16.0); White Blood Count 4.8 X10*3/uL (4.8-10.8)
[2024-06-11 07:23] LABS: Alanine Aminotransferase 8 U/L (0-31); Albumin Level 3.1 g/dL (3.5-5.0); Alkaline Phosphatase 89 U/L (39-117); Anion Gap 10 (12-20); Aspartate Amino Transferase 18 U/L (5-31); Bilirubin Direct 0.4 mg/dL (0.0-0.5); Bilirubin Total 1.1 mg/dL (0.0-1.0); Blood Urea Nitrogen 16 mg/dL (9-16); Calcium 8.4 mg/dL (8.4-10.2); Chloride 109 mmol/L (96-108); Creatinine Clr Calc Pharmacy 37.7; Estimated Glomerular Filt Rate 53; Glucose Random 93 mg/dL (60-115); Potassium 4.3 mmol/L (3.3-5.1); Sodium 139 mmol/L (135-145); Total Protein 5.8 g/dL (6.5-8.0)
[2024-06-11 07:33] VITALS: BP 160/77; PULSE 89; RESP 18; TEMP 36.8; O2SAT 100
[2024-06-11 07:37] LABS: Carbon Dioxide 22 mmol/L (22-29)
[2024-06-11] MEDS: Metoprolol Tartrate 12.5 MG HALFTAB PO ×2 (08:11→21:35)
[2024-06-11] MEDS: 0.9 % Sodium Chloride Flush 3 ML SYRINGE IVFLUSH ×3 (08:11→21:35)
[2024-06-11] MEDS: QUEtiapine Fumarate 25 MG TABLET PO (08:11)
[2024-06-11] MEDS: 0.9 % Sodium Chloride 1,000 ML 80 ML IVCONT (08:13)
[2024-06-11 11:11] VITALS: BP 122/55; PULSE 91; RESP 18; TEMP 36.1; O2SAT 100
--- NOTE | 2024-06-11 11:32 | MHC.CM.PN ---
IMM 06/11/24, Pt lives with her , no home health services, has used [facility] in the past. She has been to [facility] and [facility] for STR in the past. She does not use DME at this time. HCP is on file and confirmed: [facility], and he will transport home at DC. PCP is Dr. Burnett. DCP: home with services. CM to follow and assist with DC plan.
--- NOTE | 2024-06-11 15:04 | HO.PM.IMPN ---
Subjective Subjective Date of Service: 06/11/24 Interval History: Being followed for acute GI bleed. Patient denies recurrent episodes of black stools, denies abdominal pain, no nausea, no vomiting, denies lightheadedness or dizziness, no acute issues overnight. Denies right upper quadrant abdominal pain, no fevers, no chills. Review of Systems All other system reviewed and are negative. Physical Exam Vital Signs: Vital Signs: Last Vital Signs Temp 96.9 F 06/11/24 11:11 Pulse 91 06/11/24 11:11 Resp 18 06/11/24 11:11 BP 122/55 L 06/11/24 11:11 Pulse Ox 100 06/11/24 11:11 O2 Del Method Room Air 06/11/24 11:11 BMI result Body Mass Index 21.7 Const: Other: General resting comfortably in no acute distress. Neck no JVD. CVS regular rate rhythm, Respiratory lungs clear to auscultation, no respiratory distress, no wheeze, no rhonchi. Gastrointestinal abdomen soft, non tender, bowel sounds audible, no guarding , no rigidity. Extremities no edema. Neuro non focal Skin no rash Objective Data Active Medications Acetaminophen (Acetaminophen 325 Mg Tablet) 650 mg PO Q6H PRN PRN Reason: Pain, Mild (Pain Scale 1-3), fever or headache Calcium Carbonate (Calcium Carbonate 750 Mg Tab.Chew) 750 mg PO Q4H PRN PRN Reason: Heartburn Gabapentin (Gabapentin 300 Mg Capsule) 300 mg PO BEDTIME [facility] Last Admin: 06/10/24 20:58 Dose: 300 mg Documented By: LAKEISHA Lidocaine (Lidocaine 5 % Ointment 35 Gm) 1 appl TOPICAL Q6H PRN; Protocol PRN Reason: right flank pain Magnesium Hydroxide (Milk Of Magnesia 30 Ml Oral.Susp) 30 ml PO DAILY PRN PRN Reason: Constipation Melatonin (Melatonin 3 Mg Tablet) 6 mg PO BEDTIME PRN PRN Reason: Insomnia Metoprolol Tartrate (Metoprolol Tartrate 12.5 Mg Halftab) 12.5 mg PO BID [facility]; Protocol Last Admin: 06/11/24 08:11 Dose: 12.5 mg Documented By: SCARLETT Pantoprazole Sodium (Pantoprazole Sodium 40 Mg/10 Ml Vial) 40 mg IVPUSH BID@0630,1630 [facility] Last Admin: 06/11/24 05:21 Dose: 40 mg Documented By: DELFINA Quetiapine Fumarate (Quetiapine Fumarate 25 Mg Tablet) 25 mg PO DAILY [facility] Last Admin: 06/11/24 08:11 Dose: 25 mg Documented By: SCARLETT Sodium Chloride (0.9 % Sodium Chloride Flush 3 Ml Syringe) 3 ml IVFLUSH QSHIFT [facility] Last Admin: 06/11/24 08:11 Dose: 3 ml Documented By: SCARLETT Labs 06/11/24 05:47 06/11/24 05:47 Labs: Laboratory Results - last 24 hr 06/10/24 06/10/24 06/10/24 14:09 15:18 16:15 MCV 90.8 MCH 27.5 MCHC 30.3 L RDW 21.6 H Plt Count 161 MPV 10.5 Immature Gran % (Auto) 0.3 Neut % (Auto) 58.9 Lymph % (Auto) 21.6 [place] % (Auto) 17.8 H Eos % (Auto) 0.7 Baso % (Auto) 0.7 Lymph # (Auto) 1.3 [place] # (Auto) 1.1 Eos # (Auto) 0.0 Baso # (Auto) 0.0 Abs Immat Gran (auto) 0.02 Absolute Neuts (auto) 3.6 Absolute Nucleated RBC 0.000 Nucleated RBC % (auto) 0.0 Anion Gap Estim Creat Clear Calc Estimated GFR Random Glucose Calcium Total Bilirubin Direct Bilirubin AST ALT Alkaline Phosphatase Total Protein Albumin Urine Color Urine Appearance Urine pH Ur Specific [place] Urine Protein Urine Glucose (UA) Urine Ketones Urine Blood Urine Nitrite Ur Leukocyte Esterase Urine RBC Urine WBC Ur Squamous Epith Cells Urine Bacteria Hyaline Casts Stool Occult Blood POSITIVE Blood Type O Positive Antibody Screen POSITIVE Antibody Identification Inconclusive Crossmatch (AHG) See Detail 06/10/24 06/11/24 17:02 05:47 MCV 88.5 MCH 27.5 MCHC 31.1 RDW 23.9 H Plt Count 161 MPV 10.7 Immature Gran % (Auto) 0.2 Neut % (Auto) 62.1 Lymph % (Auto) 18.7 L [place] % (Auto) 17.4 H Eos % (Auto) 0.8 Baso % (Auto) 0.8 Lymph # (Auto) 0.9 L [place] # (Auto) 0.8 Eos # (Auto) 0.0 Baso # (Auto) 0.0 Abs Immat Gran (auto) 0.01 Absolute Neuts (auto) 3.0 Absolute Nucleated RBC 0.000 Nucleated RBC % (auto) 0.0 Anion Gap 10 L Estim Creat Clear Calc 37.7 Estimated GFR 53 Random Glucose 93 Calcium 8.4 D Total Bilirubin 1.1 H Direct Bilirubin 0.4 AST 18 ALT 8 Alkaline Phosphatase 89 Total Protein 5.8 L Albumin 3.1 L Urine Color Yellow Urine Appearance Clear Urine pH 7.0 Ur Specific [place] >= 1.030 H Urine Protein Negative Urine Glucose (UA) Negative Urine Ketones Trace Urine Blood Negative Urine Nitrite Negative Ur Leukocyte Esterase Small (1+) H Urine RBC 0-2 Urine WBC 21-50 H Ur Squamous Epith Cells 3-5 Urine Bacteria 4+ Hyaline Casts 0-2 Stool Occult Blood Blood Type Antibody Screen Antibody Identification Crossmatch ([facility]) Microbiology Microbiology Results: Microbiology 06/10/24 17:02 Urine Culture - Preliminary Urine clean catch - Clean Catch Midstream Gram negative betsy Assessment and Plan (1) Near syncope: Status: Acute (2) Acute GI bleeding: Status: Acute Plan [id number]-[id number]-old female with pertinent history of mood disorder, history of PE on Xarelto, Alzheimer's dementia, gastroesophageal reflux disease, recurrent UTI, history of breast cancer (2006) in remission, peripheral neuropathy admitted for acute gi bleed with acute symptomatic blood loss anemia #acute gi bleed with acute symptomatic blood loss anemia -no recurrent episodes of GI bleed, normal orthostatic BP, -On arrival H/H 8.2/26.7% drop to 7.2/23.8% on 3 hour recheck -hematocrit improved to 27, status post 1 unit of packed RBC -hold xarelto,iv ppi -clear liquids -seen by Dr. Correia he plans to proceed with ERCP, egd/colonoscopy after holding Xarelto for 48-72 hours -follow h/h -monitor on telemetry # history of PE -hold Xarelto due to above # abnormal CT finding-question choledocholithiasis - no abdominal pain ,MRCP ordered, total bili 1.1 normal liver enzyme # Alzheimer's dementia with mood disorder -continue quetiapine # GERD -on IV PPI # unspecified peripheral neuropathy -continue gabapentin DVT prophylaxis-compression due to GI bleed Full code Patient requires continued inpatient hospitalization for management of an acute GI bleed with symptomatic blood loss anemia requiring blood transfusion, close monitoring of hemodynamics, endoscopy, expert consultation and probable surgical intervention Quality Stroke Does the patient have a stroke diagnosis?: No VTE Prior VTE?: No VTE Risk Level:: Medical - moderate - high VTE Device Contraindication: N/A - Device Ordered VTE Drug Contraindication: Treatment Not Indicated
[2024-06-11 15:27] VITALS: BP 138/72; PULSE 89; RESP 16; TEMP 36.2; O2SAT 100
--- NOTE | 2024-06-11 16:42 | HO.WOUND ---
Wound Consult: Initial 83yr old?female admitted to [facility] [place] on 06/10/24 - See progress notes and H&P for detailed history.? Wound consult placed for buttock wound POA.? Patient agreeable to assessment and photo documentation.? Patient reports she has wounds that come and go to either side of her buttock - she reports baseline incontinence. We discussed barrier cream use as prevention at time of d/c. Buttock Etiology: ?MASD -IAD (Moisture Associated Skin Damage - Incontinence Associated Dermatitis) Wound Bed: tow areas on mirrored sides of buttock that are resurfaced with dry epidermal tissue - no open wound beds noted - there is hyperpigmentaiton that is nonblanchable but not consistent with pressure and red pink blanchable pigmentation noted - although the pigmentation patterns is someone irregular - it remains Moisture related. There is evidence to suggest pervious pressure injury but since resolved. Drainage / Odor: None Edges: ? irregular and mirrored Carol wound: ?Intact No Induration, Fluctuance or Warmth noted Pain: tenderness reported Goals of Treatment: ? Barrier cream to protect from moisture and friciton Recommendations: 1. Turn and Reposition every 2 hours and as needed for patient comfort.? Use pillows or wedges to support off loading positions. 2. Off Load all bony prominences with use of pillows and heel boots if needed.? Apply Preventative foams where needed. ? 3. Monitor for incontinence and moisture control, use barrier creams when needed for prevention and treatment. 4. Provide adequate and supplemental nutrition.? 5. Order low air loss mattress. 6. When applicable maintain blood glucose levels per Providers order. 7. Buttock - Cleanse with PH balanced wipes, pat dry. Apply barrier cream twice daily and prn for episodes of incontinence. Re-consult wound care Nurse for wound deterioration or wound changes.
--- NOTE | 2024-06-11 18:52 | PM.EVENT ---
Event Note Date of Service: 06/11/24 Event Note: GI Consult-Full note dictated Imp/Recs: 1. Recurrent GI Bleed with primarily melena while on Xarelto. She had an essentially negative EGD in 04/2024. Therefore, I would recommend an EGD/Colonoscopy later this week for further evaluation. Full consent has been obtained for that, including risks of bleeding and perforation. Continue IV PPI, follow Hgb, and hold all blood thinners in the meantime. Dietary adjustments have been ordered. I will place prep orders later this week. Call me if signs of active bleeding. 2. Gallstones with choledocholithiasis and RUQ pain. She appears stable and without signs of cholangitis. I would recommend ERCP on same days as the above procedures. Full consent obtained for this, including risks of bleeding, perforation, cholangitis, and pancreatitis. Surgery consult to consider eventual CCY once her procedures have been completed. Start antibiotics if she show signs of cholangitis with fevers, increasing pain, chills, etc. D/W patient in detail and she is comfortable with this plan. Thanks Time Spent With Patient Time: Total time managing care of this patient today ____ minutes.
[2024-06-11 20:00] VITALS: BP 152/80; PULSE 88; RESP 20; TEMP 36.3; O2SAT 99
[2024-06-11] MEDS: Gabapentin 300 MG CAPSULE PO (21:35)
[2024-06-11 23:25] VITALS: BP 140/91; PULSE 85; RESP 20; TEMP 36.1; O2SAT 100
[2024-06-12] VITALS: BP 147/70; PULSE 84; RESP 18; TEMP 36.2; O2SAT 99
--- NOTE | 2024-06-12 05:56 | CONS_ITS ---
DATE OF SERVICE: 06/11/2024 REASON FOR CONSULTATION: Melena, anemia, right upper quadrant pain, gallstones, and choledocholithiasis. HISTORY OF PRESENT ILLNESS: This has been obtained from the patient and the medical record. The patient is an 83-year-old female, known to me from a hospitalization in early April. At that time, she was admitted on April 29 with melena and anemia. At that time, she described 2 to 3 days of melena about 1 or 2 weeks before the hospitalization in early April. Her melena resolved, but she became weak and was admitted with a hemoglobin of 6.1. Her hemoglobin had been 12.3 back in November. She is on chronic Xarelto in relation to previous pulmonary emboli. She had been using an occasional NSAID, but very infrequently. She also has 1 drink each evening, but no smoking. She had been on omeprazole at that time. She had an upper endoscopy and colonoscopy, Dr. Hogan in the past including upper endoscopy in 2013 describing some gastritis and duodenitis and esophageal diverticulum. The colonoscopy in 2011 revealed only a small polyp. During the hospitalization in early April, she did undergo an upper endoscopy with me on April 30 that described a small hiatal hernia, a duodenal polyp in the 2nd portion with some inflammatory changes, but without any sign of active bleeding or ulceration. This was not biopsied nor removed at that time. There was some minimal gastritis. There was no sign of any esophagitis. At that point, the patient had been very stable. She was discharged on her PPI and told to resume her Xarelto about a week after discharge. We did review that if the problem persists and/or recurs in regard to bleeding and anemia, then she may need further evaluation with a colonoscopy and repeat upper endoscopy with removal of the duodenal polyp, as well as a possible small bowel capsule study. Apparently, the patient was feeling well since admission back in April, but did develop some right-sided abdominal pain that she describes as localized in the right upper quadrant, then into the midline of the abdomen. She did not really notice any correlation with eating. There was no definitive nausea nor vomiting. She did not notice any jaundice or fevers. On the day of admission, she developed the onset of black stool and came to the ER for evaluation both for the black stool and the right upper quadrant pain. Prior to yesterday, she reports that her bowel movements have been normal in color and without any sign of hematochezia nor melena. She did not have any vomiting. She denies any chronic heartburn or dysphagia. She has not been using any NSAIDs at all. Upon admission in the ER and exam revealed some black stool, but with some red blood mixed with it. She was found to have a hemoglobin of 8.4 on April 30, however, then dropped to 7.2 and 7.1 over the course of the day yesterday. Stool was heme positive as well. Her BUN was only 19 compared to 23 back in April. She was admitted from the ER and received 1 unit of blood with a rise in her hemoglobin up to 8.4. She denies any other signs of bleeding since admission. Her right upper quadrant pain has persisted. However, she is hungry. Her workup has revealed evidence of gallstones and choledocholithiasis on imaging studies. MEDICATIONS: At home included Xarelto. She was also on omeprazole, Seroquel, gabapentin, folic acid, metoprolol. Her medications here in the hospital include acetaminophen, calcium carbonate, gabapentin, melatonin, metoprolol, IV pantoprazole, and Seroquel. PAST MEDICAL HISTORY: GI bleeding as above with upper endoscopy in early April. Pulmonary emboli. Hypertension. She denies a history of [place], stroke, nor diabetes. PAST SURGICAL HISTORY: Surgeries include appendectomy, hysterectomy, multiple abdominal surgeries for which she describes as possible endometriosis. She has also had surgery for right mastectomy for cancer. She has had bilateral knee replacements. SOCIAL HISTORY: She is . She does not smoke. She has 1 drink each evening. FAMILY HISTORY: Noncontributory. REVIEW OF SYSTEMS: CONSTITUTIONAL: Her appetite has been good at home. SKIN: No rash. No pruritus. CARDIAC: No chest pain. PULMONARY: No coughing or hemoptysis. GI: As above. URINARY: No dysuria. No hematuria. NEUROLOGIC: No headache or seizures. PHYSICAL EXAMINATION: GENERAL: Again, the patient is a pleasant, alert, comfortable-appearing female. SKIN: Warm and dry. HEENT: Anicteric sclerae. NECK: Supple. CHEST: Clear. CARDIAC: Normal S1, S2. ABDOMEN: Soft, nondistended. Bowel sounds are normal. She does have some right upper quadrant tenderness to palpation but without mass. LABORATORY DATA: CBC as above. Hemoglobin this morning is 8.4 after 1 unit of blood. PT 13.7, INR 1.1. Normal electrolytes, BUN 22, on admission with repeat of 16 today. Creatinine 1.3 with a repeat of 1.0 today. Total bilirubin 1.1 and otherwise normal liver profile. Albumin 3.1. Lipase 41. Stool was heme-positive in the ER. Her CT scan of the abdomen describes a gallbladder distended with multiple gallstones, mildly dilated common duct and multiple common duct stones. Pancreas appeared normal. There also appeared to be some thickening of the gastric pylorus, but without any sign of gastric outlet obstruction. A followup MRCP described similar findings with gallstones and common duct stones. The pancreas appeared unremarkable. IMPRESSION: At this point, it appears that the patient has 2 separate problems. Firstly, the gastrointestinal bleeding seems to have recurred. Her black stool would tend to indicate an upper GI source despite the negative endoscopy in April. Certainly, her blood thinner may be contributing to this. I did recommend an upper endoscopy for evaluation again to reassess for any sign of upper GI blood loss. I have also recommended a colonoscopy on the same day given the negative endoscopy last month. Full consent has been obtained from her for both of those procedures, including risks of bleeding and perforation. In the meantime, I would maintain a hemoglobin of 9 or above. I will continue her IV PPI. We shall wait a couple days for the Xarelto to wash out of her system. In regard to her common duct stones and gallstones, these do seem to be somewhat symptomatic, although she does not show any sign of fever nor anything to suggest cholangitis. However, I would recommend ERCP to try to remove the common duct stones prior to any consideration of cholecystectomy. I did advise that we could try to do all of the procedures including the ERCP, upper endoscopy, and colonoscopy on the same day. Full consent obtained from her for the ERCP, including risks of bleeding, perforation, cholangitis, and pancreatitis. At this point, she appears very stable and does not appear to have any sign of cholangitis, so I do not think she needs to be on antibiotics, but if there is any sign of infection such as fevers, chills, worsening abdominal pain or jaundice, then she should be started on IV antibiotics. Again, I would transfuse her to maintain hemoglobin of 9 or above for better tolerance in regard to the upcoming procedures and anesthesia. I would also place a General Surgery consult. Given the probable need for cholecystectomy if we are able to clear out her common bile duct. This has all been discussed in detail with the patient and she is comfortable with that plan. Thank you for the consultation. MD WILMER Viveros/JOSÉ MIGUEL / [id number]
[2024-06-12] MEDS: Pantoprazole Sodium 40 MG/10 ML VIAL IVPUSH ×2 (06:10→17:48)
[2024-06-12 06:27] LABS: Hematocrit 28.3 % (37.0-47.0); Hemoglobin 8.8 g/dl (12.0-16.0); Mean Corpuscular HGB Conc 31.1 g/dl (31.0-35.0); Mean Corpuscular Hemoglobin 27.2 pg (27.0-33.0); Mean Corpuscular Volume 87.3 fL (80.0-98.0); Mean Platelet Volume 9.9 fL (9.4-12.3); Platelet Count 152 X10*3/uL (160-400); Red Blood Count 3.24 X10*6/uL (4.20-5.50); Red Cell Distribution Width 23.6 % (11.0-16.0); White Blood Count 5.4 X10*3/uL (4.8-10.8)
[2024-06-12 07:38] VITALS: BP 144/79; PULSE 90; RESP 18; TEMP 36.2; O2SAT 100
--- NOTE | 2024-06-12 08:00 | PM.CNGS ---
History of Present Illness Consult details Consult date: 06/12/24 Narrative: Patient is a very pleasant 83-year-old female who presents here with recurrent chronic anemia/GI bleed and choledocholithiasis. Patient has been seen by GI where she is tentatively scheduled for 4 ERCP and endoscopy for later in the week once her Xarelto has been appropriately held. Surgical consult obtained for possible cholecystectomy status post ERCP for choledocholithiasis. Chart was reviewed and patient evaluated. Patient has a plethora of comorbidities and intercurrent medical problems. H&H 8.8/2 8.3. LFTs essentially within normal limits. CT demonstrates cholelithiasis and choledocholithiasis Patient has had multiple abdominal surgeries including appendectomy in her youth, hysterectomy, and post hysterectomy obstruction surgeries. [facility] Past Medical History Medical History Pressure ulcer Chronic bacteriuria Urinary incontinence Bilateral hip pain Venous insufficiency of both lower extremities Bilateral knee pain Arthritis of lumbosacral spine Chronic diarrhea TIA (transient ischemic attack) UTI (urinary tract infection) Hallucination Confusion Diarrhea Supratherapeutic INR Weakness Cognitive change Pernicious anemia Osteoporosis Peripheral neuropathy Impaired fasting glucose Irritable bowel syndrome Breast cancer Thrombocytopenia Hypomagnesemia Hx of hypercalcemia History of alcohol use B12 deficiency Fatty liver, alcoholic HTN (hypertension) Hx of metabolic acidosis GERD (gastroesophageal reflux disease) Hx of deep venous thrombosis Hx of tuberculosis History of pulmonary embolism History of right breast cancer Osteoarthritis of left knee Family History Family History Father No problems noted. Mother No problems noted. Other No family history of cancer Surgical History Surgical History History of left knee surgery History of arthroplasty of left knee Hx of adenoidectomy History of esophagogastroduodenoscopy (EGD) History of evacuation of hematoma Hx of colonoscopy History of cataract surgery History of cystoscopy History of knee replacement procedure of right knee History of lumpectomy of right breast History of tonsillectomy H/O right mastectomy S/P SASHA-BSO (total abdominal hysterectomy and bilateral salpingo-oophorectomy) History of appendectomy Social History Social History Household Members: Spouse Housing: House Are you a primary healthcare network pricing consultant to a significant other at home: No Do you presently have visiting nurse or other home services: No Alcohol intake: former Comment: patient refusing red socks/safety alarms Patient Tobacco Use Status: Never used Tobacco Smoked in Last 30 Days: No e-Cigarette/Vaping Use: Never Used Second Hand Smoke Exposure: No Use of substances other than those prescribed or required for medical reasons: No Currently Displaying Signs/Symptoms of Drug Intoxication Withdrawal: No Have you been hit, kicked, punched, or otherwise hurt by someone within the past year? If so, by whom?: No Do you feel safe in your current relationship?: Yes Is there a partner from a previous relationship who is making you feel unsafe now?: No Are you made to feel afraid or neglected: No Advance Directives: Yes Advance Directives on File: Yes Advance Directives Date on File: 12/24/21 Do you have a plan to hurt others: No Plan Nutrition Risks: No Nutritional Risk Patient : No service: No Current occupational status: retired Cognitive needs: No Hearing needs: No Vision needs: Yes Meds Allergies Allergy/AdvReac Type Severity Reaction Status Date / Time sulfamethoxazole Allergy Severe Itching Verified 06/10/24 12:57 [From Bactrim] trimethoprim [From Bactrim] Allergy Severe Itching Verified 06/10/24 12:57 cortisone [Cortisone] Allergy Mild PT STATES, Verified 06/10/24 12:57 hx TB IT COULD AFFECT CRYSTALS IN LUNG prochlorperazine Allergy Mild LEG Verified 06/10/24 12:57 [From Compazine] NUMBNESS hydrochlorothiazide Allergy Unknown RASH Verified 06/10/24 12:57 levofloxacin [Levaquin] Allergy Unknown Wakefulness, Verified 06/10/24 12:57 nausea, shaking Sulfa (Sulfonamide AdvReac Intermediate rash Verified 06/10/24 12:57 Antibiotics) codeine AdvReac Unknown NAUSEA/VOMI Verified 06/10/24 12:57 TING chocolate Allergy Unknown severe Uncoded 05/08/24 12:43 headaches/vomiting Active Medications: Current Medications Acetaminophen (Acetaminophen 325 Mg Tablet) 650 mg PO Q6H PRN PRN Reason: Pain, Mild (Pain Scale 1-3), fever or headache Bisacodyl (Bisacodyl 5 Mg Tablet.Dr) 10 mg PO ONCE ONE Stop: 06/13/24 15:01 Calcium Carbonate (Calcium Carbonate 750 Mg Tab.Chew) 750 mg PO Q4H PRN PRN Reason: Heartburn Gabapentin (Gabapentin 300 Mg Capsule) 300 mg PO BEDTIME [facility] Last Admin: 06/11/24 21:35 Dose: 300 mg Piperacillin Sod/Tazobactam (Sod 3.375 gm/ Sodium Chloride) 50 mls @ 100 mls/hr IV ONCE ONE Stop: 06/14/24 12:29 Indomethacin (Indomethacin 50 Mg Supp.Rect) 100 mg [place] PREOP ONE Stop: 06/14/24 12:01 Lidocaine (Lidocaine 5 % Ointment 35 Gm) 1 appl TOPICAL Q6H PRN; Protocol PRN Reason: right flank pain Magnesium Hydroxide (Milk Of Magnesia 30 Ml Oral.Susp) 30 ml PO DAILY PRN PRN Reason: Constipation Melatonin (Melatonin 3 Mg Tablet) 6 mg PO BEDTIME PRN PRN Reason: Insomnia Metoprolol Tartrate (Metoprolol Tartrate 12.5 Mg Halftab) 12.5 mg PO BID [facility]; Protocol Last Admin: 06/11/24 21:35 Dose: 12.5 mg Pantoprazole Sodium (Pantoprazole Sodium 40 Mg/10 Ml Vial) 40 mg IVPUSH BID@0630,1630 [facility] Last Admin: 06/12/24 06:10 Dose: 40 mg Polyethylene Glycol/Electrolytes (Peg 3350/Na Sulf,Bicarb,Cl/Kcl 4,000 Ml Soln.Recon) 240 ml PO Q10M [facility] Stop: 06/13/24 17:41 Quetiapine Fumarate (Quetiapine Fumarate 25 Mg Tablet) 25 mg PO DAILY [facility] Last Admin: 06/11/24 08:11 Dose: 25 mg Sodium Chloride (0.9 % Sodium Chloride Flush 3 Ml Syringe) 3 ml IVFLUSH QSHIFT [facility] Last Admin: 06/11/24 21:35 Dose: 3 ml Home Medications ?Medication ?Instructions ?Recorded ?Confirmed ?Last Taken ?Type omeprazole 20 mg capsule,delayed 20 mg PO DAILY@0630 01/08/22 06/10/24 06/10/24 History release rivaroxaban 20 mg tablet (Xarelto) 20 mg PO BEDTIME 04/27/24 06/10/24 06/09/24 History folic acid 800 mcg tablet 0.8 mg PO DAILY 06/10/24 06/10/24 06/10/24 History Physical Exam Vital Signs: Vital Signs: Last Vital Signs Temp 97.1 F 06/12/24 07:38 Pulse 90 06/12/24 07:38 Resp 18 06/12/24 07:38 BP 144/79 H 06/12/24 07:38 Pulse Ox 100 06/12/24 07:38 O2 Del Method Room Air 06/12/24 07:38 BMI result Body Mass Index 21.7 Eyes: Other: Anicteric GI: Other: Abdomen lower midline and right paramedian scars. Results Labs 06/12/24 06:08 06/11/24 05:47 Labs: Abnormal lab results 06/12/24 Range/Units 06:08 RBC 3.24 L (4.20-5.50) X10*6/uL Hgb 8.8 L (12.0-16.0) g/dl Hct 28.3 L (37.0-47.0) % RDW 23.6 H (11.0-16.0) % Plt Count 152 L (160-400) X10*3/uL Short CBC 06/12/24 Range/Units 06:08 WBC 5.4 (4.8-10.8) X10*3/uL Hgb 8.8 L (12.0-16.0) g/dl Hct 28.3 L (37.0-47.0) % Plt Count 152 L (160-400) X10*3/uL Urine 06/10/24 Range/Units 17:02 Urine Color Yellow Urine Appearance Clear Urine pH 7.0 (5.0-9.0) Ur Specific Hayden >= 1.030 H (1.005-1.025) Urine Protein Negative (Neg-Trace) mg/dL Urine Glucose (UA) Negative (Negative) mg/dL All other labs normal. Assessment and Plan (1) Choledocholithiasis: Status: Acute (2) Cholelithiasis: Status: Acute Plan AWaiting final reading of MRCP as well as GI scope results before proceeding with laparoscopic cholecystectomy. Procedures Date of Service Date of Service: 06/12/24
[2024-06-12] MEDS: Metoprolol Tartrate 12.5 MG HALFTAB PO ×2 (08:21→20:25)
[2024-06-12] MEDS: Acetaminophen 325 MG TABLET 650 MG PO ×2 (08:21→23:54)
[2024-06-12] MEDS: QUEtiapine Fumarate 25 MG TABLET PO (08:21)
[2024-06-12] MEDS: 0.9 % Sodium Chloride Flush 3 ML SYRINGE IVFLUSH ×4 (08:24→23:55)
--- NOTE | 2024-06-12 11:29 | P.PNIM_ITS ---
Subjective Subjective Date of Service: 06/12/24 Interval History: Denies abdominal pain no recurrent GI bleed tolerating full liquid diet this morning, patient wishes camera to be removed from her room concern about her privacy, denies lightheadedness dizziness or unsteady gait, no other acute events overnight, evaluated by General surgery this morning, no acute events overnight. Review of Systems All other system reviewed and are negative. Physical Exam 2 Vital Signs: Vital Signs: Last Vital Signs Temp 97.1 F 06/12/24 07:38 Pulse 90 06/12/24 07:38 Resp 18 06/12/24 07:38 BP 144/79 H 06/12/24 07:38 Pulse Ox 100 06/12/24 07:38 O2 Del Method Room Air 06/12/24 07:38 BMI result Body Mass Index 21.7 Const: Other: General resting comfortably in no acute distress. Neck no JVD. CVS regular rate rhythm, Respiratory lungs clear to auscultation, no respiratory distress, no wheeze, no rhonchi. Gastrointestinal abdomen soft, non tender, bowel sounds audible, no guarding , no rigidity. Extremities no edema. Neuro non focal Skin no rash Appropriate affect Objective Data Active Medications Acetaminophen (Acetaminophen 325 Mg Tablet) 650 mg PO Q6H PRN PRN Reason: Pain, Mild (Pain Scale 1-3), fever or headache Last Admin: 06/12/24 08:21 Dose: 650 mg Documented By: NAHEED Bisacodyl (Bisacodyl 5 Mg Tablet.Dr) 10 mg PO ONCE ONE Stop: 06/13/24 15:01 Calcium Carbonate (Calcium Carbonate 750 Mg Tab.Chew) 750 mg PO Q4H PRN PRN Reason: Heartburn Gabapentin (Gabapentin 300 Mg Capsule) 300 mg PO BEDTIME [facility] Last Admin: 06/11/24 21:35 Dose: 300 mg Documented By: PETE Piperacillin Sod/Tazobactam (Sod 3.375 gm/ Sodium Chloride) 50 mls @ 100 mls/hr IV ONCE ONE Stop: 06/14/24 12:29 Indomethacin (Indomethacin 50 Mg Supp.Rect) [address] PREOP ONE Stop: 06/14/24 12:01 Lidocaine (Lidocaine 5 % Ointment 35 Gm) 1 appl TOPICAL Q6H PRN; Protocol PRN Reason: right flank pain Magnesium Hydroxide (Milk Of Magnesia 30 Ml Oral.Susp) 30 ml PO DAILY PRN PRN Reason: Constipation Melatonin (Melatonin 3 Mg Tablet) 6 mg PO BEDTIME PRN PRN Reason: Insomnia Metoprolol Tartrate (Metoprolol Tartrate 12.5 Mg Halftab) 12.5 mg PO BID [facility]; Protocol Last Admin: 06/12/24 08:21 Dose: 12.5 mg Documented By: NAHEED Pantoprazole Sodium (Pantoprazole Sodium 40 Mg/10 Ml Vial) 40 mg IVPUSH BID@0630,1630 [facility] Last Admin: 06/12/24 06:10 Dose: 40 mg Documented By: EPTE Polyethylene Glycol/Electrolytes (Peg 3350/Na Sulf,Bicarb,Cl/Kcl 4,000 Ml Soln.Recon) 240 ml PO Q10M [facility] Stop: 06/13/24 17:41 Quetiapine Fumarate (Quetiapine Fumarate 25 Mg Tablet) 25 mg PO DAILY [facility] Last Admin: 06/12/24 08:21 Dose: 25 mg Documented By: NAHEED Sodium Chloride (0.9 % Sodium Chloride Flush 3 Ml Syringe) 3 ml IVFLUSH QSHIFT [facility] Last Admin: 06/12/24 08:24 Dose: 3 ml Documented By: NAHEED Labs 06/12/24 06:08 06/11/24 05:47 Labs: Laboratory Results - last 24 hr 06/12/24 06:08 MCV 87.3 MCH 27.2 MCHC 31.1 RDW 23.6 H Plt Count 152 L MPV 9.9 Absolute Nucleated RBC 0.000 Nucleated RBC % (auto) 0.0 Microbiology Microbiology Results: Microbiology 06/10/24 17:02 Urine Culture - Final Urine clean catch - Clean Catch Midstream Escherichia coli Assessment and Plan (1) Cholelithiasis: Status: Acute (2) Choledocholithiasis: Status: Acute Plan Hlyuzb[age]gfn[age]vmqi-old female with pertinent history of mood disorder, history of PE on Xarelto, Alzheimer's dementia, gastroesophageal reflux disease, recurrent UTI, history of breast cancer (2006) in remission, peripheral neuropathy admitted for acute gi bleed with acute symptomatic blood loss anemia #acute gi bleed with acute symptomatic blood loss anemia -no recurrent episodes of GI bleed, normal orthostatic BP, -status post 1 unit of packed RBC hematocrit improved and remained stable -hold xarelto,iv ppi -tolerating full liquid diets -seen by Dr. Correia he plans to proceed with ERCP, egd/colonoscopy after holding Xarelto on 06/14 -follow h/h -monitor on telemetry # history of PE -hold Xarelto due to above # abnormal CT finding-question choledocholithiasis - MRCP showed choledocholithiasis with dilatation with the distal common bile duct, cholelithiasis, will undergo ERCP on 06/14 -seen by General surgery they plan on cholecystectomy on 06/15 # Alzheimer's dementia with mood disorder -continue quetiapine # GERD -on IV PPI # unspecified peripheral neuropathy -continue gabapentin DVT prophylaxis-compression due to GI bleed Full code Patient requires continued inpatient hospitalization for management of an acute GI bleed with symptomatic blood loss anemia requiring blood transfusion, close monitoring of hemodynamics, is scheduled for upper endoscopy/colonoscopy ERCP and cholecystectomy. Quality Stroke Does the patient have a stroke diagnosis?: No VTE Prior VTE?: No VTE Risk Level:: Medical - moderate - high VTE Device Contraindication: N/A - Device Ordered VTE Drug Contraindication: Treatment Not Indicated
[2024-06-12 11:32] VITALS: BP 108/63; PULSE 81; RESP 18; TEMP 36.2; O2SAT 97
[2024-06-12 16:00] VITALS: BP 136/66; PULSE 85; RESP 18; TEMP 36.5; O2SAT 96
[2024-06-12 20:00] VITALS: BP 155/67; PULSE 99; RESP 20; TEMP 36.4; O2SAT 100
[2024-06-12] MEDS: Gabapentin 300 MG CAPSULE PO (20:25)
[2024-06-12 23:42] VITALS: BP 153/76; PULSE 84; RESP 18; TEMP 36.8; O2SAT 99
[2024-06-13 03:47] VITALS: BP 141/77; PULSE 85; RESP 18; TEMP 36.6; O2SAT 98
[2024-06-13] MEDS: Pantoprazole Sodium 40 MG/10 ML VIAL IVPUSH ×2 (06:08→15:34)
[2024-06-13 06:50] LABS: Basophils Percent Auto 0.8 % (0-2); Eosinophils Absolute Auto 0.1 X10*3/uL (0.0-0.4); Eosinophils Percent Auto 1.8 % (0-4); Hematocrit 30.5 % (37.0-47.0); Hemoglobin 9.5 g/dl (12.0-16.0); Imm Gran Abs Auto 0.01 X10*3/uL (0.00-0.03); Imm Gran Pct Auto 0.2 % (0.0-0.4); Lymphocytes Absolute Auto 0.9 X10*3/uL (1.2-4.9); MANUAL DIFF FLAG SCAN; Mean Corpuscular HGB Conc 31.1 g/dl (31.0-35.0); Mean Corpuscular Hemoglobin 27.9 pg (27.0-33.0); Mean Corpuscular Volume 89.4 fL (80.0-98.0); Mean Platelet Volume 10.1 fL (9.4-12.3); Monocytes Absolute Auto 1.1 X10*3/uL (0.1-1.2); Monocytes Percent Auto 21.2 % (2-11); Neutrophils Absolute Auto 2.9 x10*3/uL (2.0-8.3); Platelet Count 136 X10*3/uL (160-400); Red Blood Count 3.41 X10*6/uL (4.20-5.50); Red Cell Distribution Width 23.4 % (11.0-16.0); SCAN SMEAR FLAG 1
[2024-06-13] MEDS: Metoprolol Tartrate 12.5 MG HALFTAB PO ×2 (07:52→19:41)
[2024-06-13] MEDS: QUEtiapine Fumarate 25 MG TABLET PO (07:52)
[2024-06-13] MEDS: Acetaminophen 325 MG TABLET 650 MG PO (07:52)
--- NOTE | 2024-06-13 07:53 | PM.PNGS ---
Subjective Subjective Date of Service: 06/13/24 Interval history: Uneventful evening. Minimal abdominal symptoms. A.m. labs pending Physical Exam Vital Signs: Vital Signs: Last Vital Signs Temp 97.8 F 06/13/24 03:47 Pulse 85 06/13/24 03:47 Resp 18 06/13/24 03:47 BP 141/77 H 06/13/24 03:47 Pulse Ox 98 06/13/24 03:47 O2 Del Method Room Air 06/13/24 03:47 BMI result Body Mass Index 21.7 GI: Other: Abdomen is soft, benign Objective Data Active Medications Acetaminophen (Acetaminophen 325 Mg Tablet) 650 mg PO Q6H PRN PRN Reason: Pain, Mild (Pain Scale 1-3), fever or headache Last Admin: 06/13/24 07:52 Dose: 650 mg Documented By: KOURTNEY Bisacodyl (Bisacodyl 5 Mg Tablet.Dr) 10 mg PO ONCE ONE Stop: 06/13/24 15:01 Calcium Carbonate (Calcium Carbonate 750 Mg Tab.Chew) 750 mg PO Q4H PRN PRN Reason: Heartburn Gabapentin (Gabapentin 300 Mg Capsule) 300 mg PO BEDTIME [facility] Last Admin: 06/12/24 20:25 Dose: 300 mg Documented By: PETE Piperacillin Sod/Tazobactam (Sod 3.375 gm/ Sodium Chloride) 50 mls @ 100 mls/hr IV ONCE ONE Stop: 06/14/24 12:29 Indomethacin (Indomethacin 50 Mg Supp.Rect) 100 mg [place] PREOP ONE Stop: 06/14/24 12:01 Lidocaine (Lidocaine 5 % Ointment 35 Gm) 1 appl TOPICAL Q6H PRN; Protocol PRN Reason: right flank pain Magnesium Hydroxide (Milk Of Magnesia 30 Ml Oral.Susp) 30 ml PO DAILY PRN PRN Reason: Constipation Melatonin (Melatonin 3 Mg Tablet) 6 mg PO BEDTIME PRN PRN Reason: Insomnia Metoprolol Tartrate (Metoprolol Tartrate 12.5 Mg Halftab) 12.5 mg PO BID [facility]; Protocol Last Admin: 06/13/24 07:52 Dose: 12.5 mg Documented By: KOURTNEY Pantoprazole Sodium (Pantoprazole Sodium 40 Mg/10 Ml Vial) 40 mg IVPUSH BID@0630,1630 [facility] Last Admin: 06/13/24 06:08 Dose: 40 mg Documented By: PETE Polyethylene Glycol/Electrolytes (Peg 3350/Na Sulf,Bicarb,Cl/Kcl 4,000 Ml Soln.Recon) 240 ml PO Q10M [facility] Stop: 06/13/24 17:41 Quetiapine Fumarate (Quetiapine Fumarate 25 Mg Tablet) 25 mg PO DAILY [facility] Last Admin: 06/13/24 07:52 Dose: 25 mg Documented By: GISELEFAAna Sodium Chloride (0.9 % Sodium Chloride Flush 3 Ml Syringe) 3 ml IVFLUSH QSHIFT [facility] Last Admin: 06/12/24 23:55 Dose: 3 ml Documented By: PETE Labs 06/12/24 06:08 06/11/24 05:47 Microbiology Microbiology Results: Microbiology 06/10/24 17:02 Urine Culture - Final Urine clean catch - Clean Catch Midstream Escherichia coli Procedures Date of Service Date of Service: 06/13/24 Progress Note: A&P Assessment and plan (1) Cholelithiasis: Status: Acute (2) Choledocholithiasis: Status: Acute Plan Awaiting correction of coagulopathy and for panendoscopy tomorrow/. Tentatively plan for lap choly with possible cholangiogram on Tuesday. Time Spent With Patient Time: Total time managing care of this patient today ____ minutes. Quality Stroke Does the patient have a stroke diagnosis?: No VTE Prior VTE?: No VTE Risk Level:: Medical - moderate - high VTE Device Contraindication: N/A - Device Ordered VTE Drug Contraindication: Treatment Not Indicated
[2024-06-13 08:00] VITALS: BP 145/73; PULSE 82; RESP 18; TEMP 36.8; O2SAT 100
--- NOTE | 2024-06-13 11:55 | MHC.CM.PN ---
Per rounds, pt is not ready to DC, she is awaiting procedure, scheduled this week. CM will follow for DC needs.
[2024-06-13 12:00] VITALS: BP 121/59; PULSE 91; RESP 18; TEMP 36.7; O2SAT 100
--- NOTE | 2024-06-13 12:08 | MHC.SHP ---
Pre-Procedural Eval Section A - 24 Hr Update-Section A only Date of Service: 06/14/24 The patient is an INPATIENT: Yes The patient has been examined within 24 hours of the surgical procedure. The History & Physical has been completed within 30 days and I have reviewed it.: Yes Section B - Complete if H&P > 30 days Chief Complaint: Acute blood loss anemia, ear syncope Allergies: Allergies Allergy/AdvReac Type Severity Reaction Status Date / Time sulfamethoxazole Allergy Severe Itching Verified 06/10/24 12:57 [From Bactrim] trimethoprim [From Bactrim] Allergy Severe Itching Verified 06/10/24 12:57 cortisone [Cortisone] Allergy Mild PT STATES, Verified 06/10/24 12:57 hx TB IT COULD AFFECT CRYSTALS IN LUNG prochlorperazine Allergy Mild LEG Verified 06/10/24 12:57 [From Compazine] NUMBNESS hydrochlorothiazide Allergy Unknown RASH Verified 06/10/24 12:57 levofloxacin [Levaquin] Allergy Unknown Wakefulness, Verified 06/10/24 12:57 nausea, shaking Sulfa (Sulfonamide AdvReac Intermediate rash Verified 06/10/24 12:57 Antibiotics) codeine AdvReac Unknown NAUSEA/VOMI Verified 06/10/24 12:57 TING chocolate Allergy Unknown severe Uncoded 05/08/24 12:43 headaches/vomiting Plan I have reviewed the history and physical and performed a pertinent physical examination on my patient. No changes have occurred unless specified. Time Spent With Patient Time: Total time managing care of this patient today ____ minutes.
[2024-06-13 12:11] LABS: SLIDE REVIEW VERIFIED
--- NOTE | 2024-06-13 12:36 | P.PNIM_ITS ---
Subjective Subjective Date of Service: 06/13/24 Interval History: No acute complaints tolerating clear liquid diet, scheduled for upper endoscopy/colonoscopy and ERCP tomorrow, no acute events overnight, no recurrent episodes of GI bleed. Review of Systems All other system reviewed and are negative. Physical Exam 2 Vital Signs: Vital Signs: Last Vital Signs Temp 98.0 F 06/13/24 12:00 Pulse 91 06/13/24 12:00 Resp 18 06/13/24 12:00 BP 121/59 L 06/13/24 12:00 Pulse Ox 100 06/13/24 12:00 O2 Del Method Room Air 06/13/24 12:00 BMI result Body Mass Index 21.7 Const: Other: General resting comfortably in no acute distress. Neck no JVD. CVS regular rate rhythm, Respiratory lungs clear to auscultation, no respiratory distress, no wheeze, no rhonchi. Gastrointestinal abdomen soft, non tender, bowel sounds audible, no guarding , no rigidity. Extremities no edema. Neuro non focal Skin no rash Appropriate affect Objective Data Active Medications Acetaminophen (Acetaminophen 325 Mg Tablet) 650 mg PO Q6H PRN PRN Reason: Pain, Mild (Pain Scale 1-3), fever or headache Last Admin: 06/13/24 07:52 Dose: 650 mg Documented By: KOURTNEY Bisacodyl (Bisacodyl 5 Mg Tablet.Dr) 10 mg PO ONCE ONE Stop: 06/13/24 15:01 Calcium Carbonate (Calcium Carbonate 750 Mg Tab.Chew) 750 mg PO Q4H PRN PRN Reason: Heartburn Gabapentin (Gabapentin 300 Mg Capsule) 300 mg PO BEDTIME [facility] Last Admin: 06/12/24 20:25 Dose: 300 mg Documented By: PETE Piperacillin Sod/Tazobactam (Sod 3.375 gm/ Sodium Chloride) 50 mls @ 100 mls/hr IV ONCE ONE Stop: 06/14/24 12:29 Indomethacin (Indomethacin 50 Mg Supp.Rect) 100 mg [place] PREOP ONE Stop: 06/14/24 12:01 Lidocaine (Lidocaine 5 % Ointment 35 Gm) 1 appl TOPICAL Q6H PRN; Protocol PRN Reason: right flank pain Magnesium Hydroxide (Milk Of Magnesia 30 Ml Oral.Susp) 30 ml PO DAILY PRN PRN Reason: Constipation Melatonin (Melatonin 3 Mg Tablet) 6 mg PO BEDTIME PRN PRN Reason: Insomnia Metoprolol Tartrate (Metoprolol Tartrate 12.5 Mg Halftab) 12.5 mg PO BID [facility]; Protocol Last Admin: 06/13/24 07:52 Dose: 12.5 mg Documented By: KOURTNEY Pantoprazole Sodium (Pantoprazole Sodium 40 Mg/10 Ml Vial) 40 mg IVPUSH BID@0630,1630 [facility] Last Admin: 06/13/24 06:08 Dose: 40 mg Documented By: PETE Polyethylene Glycol/Electrolytes (Peg 3350/Na Sulf,Bicarb,Cl/Kcl 4,000 Ml Soln.Recon) 240 ml PO Q10M [facility] Stop: 06/13/24 17:41 Quetiapine Fumarate (Quetiapine Fumarate 25 Mg Tablet) 25 mg PO DAILY [facility] Last Admin: 06/13/24 07:52 Dose: 25 mg Documented By: KOURTNEY Sodium Chloride (0.9 % Sodium Chloride Flush 3 Ml Syringe) 3 ml IVFLUSH QSHIFT [facility] Last Admin: 06/12/24 23:55 Dose: 3 ml Documented By: PETE Labs 06/13/24 06:47 06/11/24 05:47 Labs: Laboratory Results - last 24 hr 06/13/24 06:47 MCV 89.4 MCH 27.9 MCHC 31.1 RDW 23.4 H Plt Count 136 L MPV 10.1 Immature Gran % (Auto) 0.2 Neut % (Auto) 59.0 Lymph % (Auto) 17.0 L Bibb % (Auto) 21.2 H Eos % (Auto) 1.8 Baso % (Auto) 0.8 Lymph # (Auto) 0.9 L Bibb # (Auto) 1.1 Eos # (Auto) 0.1 Baso # (Auto) 0.0 Abs Immat Gran (auto) 0.01 Absolute Neuts (auto) 2.9 Absolute Nucleated RBC 0.000 Nucleated RBC % (auto) 0.0 Smear Tech's Comments VERIFIED Assessment and Plan (1) Cholelithiasis: Status: Acute (2) Choledocholithiasis: Status: Acute (3) Acute GI bleeding: Status: Acute Plan [id number]-dqu-uzrg-old female with pertinent history of mood disorder, history of PE on Xarelto, Alzheimer's dementia, gastroesophageal reflux disease, recurrent UTI, history of breast cancer (2006) in remission, peripheral neuropathy admitted for acute gi bleed with acute symptomatic blood loss anemia #acute gi bleed with acute symptomatic blood loss anemia -no recurrent episodes of GI bleed, normal orthostatic BP, -status post 1 unit of packed RBC hematocrit improved and remained stable -hold xarelto,iv ppi -tolerating full liquid diets -seen by Dr. Correia he plans to proceed with ERCP, egd/colonoscopy after holding Xarelto on 06/14 -monitor on telemetry # history of PE -hold Xarelto due to above # abnormal CT finding-question choledocholithiasis - MRCP showed choledocholithiasis with dilatation with the distal common bile duct, cholelithiasis, will undergo ERCP on 06/14 -seen by General surgery they plan on cholecystectomy on 06/15 # Alzheimer's dementia with mood disorder -continue quetiapine # GERD -on PPI # unspecified peripheral neuropathy -continue gabapentin DVT prophylaxis-compression due to GI bleed Full code Patient requires continued inpatient hospitalization for management of an acute GI bleed with symptomatic blood loss anemia requiring blood transfusion, close monitoring of hemodynamics, is scheduled for upper endoscopy/colonoscopy ERCP and cholecystectomy. Quality Stroke Does the patient have a stroke diagnosis?: No VTE Prior VTE?: No VTE Risk Level:: Medical - moderate - high VTE Device Contraindication: N/A - Device Ordered VTE Drug Contraindication: Treatment Not Indicated
[2024-06-13] MEDS: PEG 3350/Na Sulf,Bicarb,Cl/KCL 4,000 ML SOLN.RECON 4000 ML PO (15:34)
[2024-06-13] MEDS: bisacodyL 5 MG TABLET.DR 10 MG PO (15:34)
[2024-06-13 16:00] VITALS: BP 122/60; PULSE 80; RESP 18; TEMP 36.8; O2SAT 100
[2024-06-13 19:39] VITALS: BP 137/76; PULSE 110; RESP 18; TEMP 36.4; O2SAT 98
[2024-06-13] MEDS: Gabapentin 300 MG CAPSULE PO (19:41)
--- NOTE | 2024-06-13 19:52 | PC.NURSE ---
Assumed care of patient at 19:00. Pt on commode on initial rounding. Pt reports frequent BMs due to bowel prep for endoscopy tomorrow, visible stool on bed pad. Most of go-lytely appears consumed, only four small styrofoam cups remain on bedside table. Incontinence care and bed change provided by report writer and cream applied to buttocks. Pt assisted back to bed. Pt is refusing the bed alarm and camera despite safety concerns discussion; pt asked to please call staff when getting up to the bedside commode. Frequent purposeful rounding enacted.
[2024-06-13] MEDS: 0.9 % Sodium Chloride Flush 3 ML SYRINGE IVFLUSH (23:50)
[2024-06-14] VITALS (22 sets, daily range): BP systolic 125–154; BP diastolic 59–90; PULSE 76–100; RESP 15–20; TEMP 36.1–36.7; O2SAT 92–100
[2024-06-14] MEDS: Pantoprazole Sodium 40 MG/10 ML VIAL IVPUSH (06:07)
[2024-06-14 07:12] LABS: MANUAL DIFF FLAG NO
[2024-06-14 07:15] LABS: Basophils Percent Auto 0.7 % (0-2); Eosinophils Absolute Auto 0.1 X10*3/uL (0.0-0.4); Eosinophils Percent Auto 1.4 % (0-4); Hematocrit 29.2 % (37.0-47.0); Hemoglobin 9.1 g/dl (12.0-16.0); Imm Gran Abs Auto 0.02 X10*3/uL (0.00-0.03); Imm Gran Pct Auto 0.5 % (0.0-0.4); Lymphocytes Absolute Auto 0.8 X10*3/uL (1.2-4.9); Lymphocytes Percent Auto 17.7 % (20-40); Mean Corpuscular HGB Conc 31.2 g/dl (31.0-35.0); Mean Corpuscular Hemoglobin 27.3 pg (27.0-33.0); Mean Corpuscular Volume 87.7 fL (80.0-98.0); Mean Platelet Volume 9.1 fL (9.4-12.3); Monocytes Absolute Auto 0.9 X10*3/uL (0.1-1.2); Neutrophils Absolute Auto 2.6 x10*3/uL (2.0-8.3); Neutrophils Percent Auto 59.7 % (45-73); Platelet Count 126 X10*3/uL (160-400); Red Blood Count 3.33 X10*6/uL (4.20-5.50); Red Cell Distribution Width 23.2 % (11.0-16.0); White Blood Count 4.4 X10*3/uL (4.8-10.8)
[2024-06-14 07:32] LABS: Alanine Aminotransferase 11 U/L (0-31); Albumin Level 3.2 g/dL (3.5-5.0); Alkaline Phosphatase 91 U/L (39-117); Anion Gap 12 (12-20); Aspartate Amino Transferase 19 U/L (5-31); Bilirubin Direct 0.2 mg/dL (0.0-0.5); Bilirubin Total 0.5 mg/dL (0.0-1.0); Blood Urea Nitrogen 7 mg/dL (9-16); Calcium 8.9 mg/dL (8.4-10.2); Carbon Dioxide 25 mmol/L (22-29); Chloride 106 mmol/L (96-108); Creatinine Clr Calc Pharmacy 37.3; Estimated Glomerular Filt Rate 52; Glucose Fasting 96 mg/dL (60-99); Sodium 139 mmol/L (135-145); Total Protein 6.2 g/dL (6.5-8.0)
--- NOTE | 2024-06-14 10:23 | MHC.SHP ---
Pre-Procedural Eval Section A - 24 Hr Update-Section A only Date of Service: 06/15/24 The patient is an INPATIENT: Yes Changes since office visit: No Cold of Flu in the past 2 weeks, No New Medical Problems, No Changes in Medication and No Patient answered all questions Section B - Complete if H&P > 30 days Chief Complaint: Acute blood loss anemia, ear syncope Allergies: Allergies Allergy/AdvReac Type Severity Reaction Status Date / Time sulfamethoxazole Allergy Severe Itching Verified 06/10/24 12:57 [From Bactrim] trimethoprim [From Bactrim] Allergy Severe Itching Verified 06/10/24 12:57 cortisone [Cortisone] Allergy Mild PT STATES, Verified 06/10/24 12:57 hx TB IT COULD AFFECT CRYSTALS IN LUNG prochlorperazine Allergy Mild LEG Verified 06/10/24 12:57 [From Compazine] NUMBNESS hydrochlorothiazide Allergy Unknown RASH Verified 06/10/24 12:57 levofloxacin [Levaquin] Allergy Unknown Wakefulness, Verified 06/10/24 12:57 nausea, shaking Sulfa (Sulfonamide AdvReac Intermediate rash Verified 06/10/24 12:57 Antibiotics) codeine AdvReac Unknown NAUSEA/VOMI Verified 06/10/24 12:57 TING chocolate Allergy Unknown severe Uncoded 05/08/24 12:43 headaches/vomiting Review of Systems Sugical H&P ROS: Negative: Constitution, Cardiovascular, Respiratory, Neurological, Psychiatric, Hem-Onc, Allergic/Immunologic, Gastrointestinal, Genitourinary, Musculoskeletal, Integumentary, Endocrine and Eyes/Ears/Nose/Throat Plan I have reviewed the history and physical and performed a pertinent physical examination on my patient. No changes have occurred unless specified. Risks, benefits, alternatives laparoscopic possible open cholecystectomy with possible cholangiogram reviewed with the patient and included but not limited to bleeding, infection, numbness, pain, scarring, bowel or bile duct injury or leak and the patient wishes to proceed. All questions answered. Arrangements were made for this. Time Spent With Patient Time: Total time managing care of this patient today ____ minutes.
[2024-06-14] MEDS: QUEtiapine Fumarate 25 MG TABLET PO (10:34)
[2024-06-14] MEDS: Metoprolol Tartrate 12.5 MG HALFTAB PO ×2 (10:34→19:43)
[2024-06-14] MEDS: 0.9 % Sodium Chloride Flush 3 ML SYRINGE IVFLUSH ×2 (10:35→19:42)
[2024-06-14] MEDS: Lactated Ringers 1,000 ML 100 ML IVCONT (13:44)
--- NOTE | 2024-06-14 13:57 | HO.ANESPROP2 ---
[facility] Active Problems Active Problems: All Active Problems Cholelithiasis (Acute) Choledocholithiasis (Acute) Near syncope (Acute) Orthostatic hypotension (Acute) Acute GI bleeding (Acute) Pressure ulcer (Acute) Upper GI bleed (Acute) Chronic bacteriuria (Acute) Fungal skin infection (Acute) Urinary incontinence (Acute) History of pulmonary embolism (Acute) Peripheral vascular disease (Acute) Alzheimer's dementia (Acute) Syncope (Acute) Urinary tract infection (Acute) Hypercholesterolemia (Acute) Varicose veins of left lower extremity with inflammation (Acute) Lumbar spondylosis (Acute) Lumbar radiculopathy (Acute) OAB (overactive bladder) (Acute) Current use of anticoagulant therapy (Acute) Anemia (Acute) Encephalopathy acute (Acute) Urinary tract infection (Acute) Fall (Acute) PUMA (acute kidney injury) (Acute) Status post total knee replacement, left (Acute) Urinary incontinence (Acute) Protein calorie malnutrition (Acute) Osteopenia (Acute) Urinary urgency (Acute) B12 deficiency anemia (Acute) Medicare annual wellness visit, initial (Acute) Overactive bladder (Acute) Nocturia more than twice per night (Acute) GERD (gastroesophageal reflux disease) (Acute) History of right breast cancer (Acute) Impaired fasting glucose (Acute) History of arthroplasty of left knee (Acute) HTN (hypertension) (Acute) Past Medical History Medical History Pressure ulcer Chronic bacteriuria Urinary incontinence Bilateral hip pain Venous insufficiency of both lower extremities Bilateral knee pain Arthritis of lumbosacral spine Chronic diarrhea TIA (transient ischemic attack) UTI (urinary tract infection) Hallucination Confusion Diarrhea Supratherapeutic INR Weakness Cognitive change Pernicious anemia Osteoporosis Peripheral neuropathy Impaired fasting glucose Irritable bowel syndrome Breast cancer Thrombocytopenia Hypomagnesemia Hx of hypercalcemia History of alcohol use B12 deficiency Fatty liver, alcoholic HTN (hypertension) Hx of metabolic acidosis GERD (gastroesophageal reflux disease) Hx of deep venous thrombosis Hx of tuberculosis History of pulmonary embolism History of right breast cancer Osteoarthritis of left knee Family History Family History Father No problems noted. Mother No problems noted. Other No family history of cancer Family history of problems with anesthesia: No Surgical History Surgical History History of left knee surgery History of arthroplasty of left knee Hx of adenoidectomy History of esophagogastroduodenoscopy (EGD) History of evacuation of hematoma Hx of colonoscopy History of cataract surgery History of cystoscopy History of knee replacement procedure of right knee History of lumpectomy of right breast History of tonsillectomy H/O right mastectomy S/P SASHA-BSO (total abdominal hysterectomy and bilateral salpingo-oophorectomy) History of appendectomy History of Problems with Anesthesia: No Social History Social History Household Members: Spouse Housing: House Are you a primary personal care worker to a significant other at home: No Do you presently have visiting nurse or other home services: No Alcohol intake: former Comment: see RN note Patient Tobacco Use Status: Never used Tobacco Smoked in Last 30 Days: No e-Cigarette/Vaping Use: Never Used Second Hand Smoke Exposure: No Use of substances other than those prescribed or required for medical reasons: No Currently Displaying Signs/Symptoms of Drug Intoxication Withdrawal: No Have you been hit, kicked, punched, or otherwise hurt by someone within the past year? If so, by whom?: No Do you feel safe in your current relationship?: Yes Is there a partner from a previous relationship who is making you feel unsafe now?: No Are you made to feel afraid or neglected: No Are you DNR?: No Advance Directives: Yes Advance Directives on File: Yes Advance Directives Date on File: 12/24/21 Do you have a plan to hurt others: No Plan Recently lost weight without trying: No Nutrition Risks: No Nutritional Risk Patient : No service: No Current occupational status: retired Cognitive needs: No Hearing needs: No Vision needs: Yes Meds Allergies Allergy/AdvReac Type Severity Reaction Status Date / Time sulfamethoxazole Allergy Severe Itching Verified 06/10/24 12:57 [From Bactrim] trimethoprim [From Bactrim] Allergy Severe Itching Verified 06/10/24 12:57 cortisone [Cortisone] Allergy Mild PT STATES, Verified 06/10/24 12:57 hx TB IT COULD AFFECT CRYSTALS IN LUNG prochlorperazine Allergy Mild LEG Verified 06/10/24 12:57 [From Compazine] NUMBNESS hydrochlorothiazide Allergy Unknown RASH Verified 06/10/24 12:57 levofloxacin [Levaquin] Allergy Unknown Wakefulness, Verified 06/10/24 12:57 nausea, shaking Sulfa (Sulfonamide AdvReac Intermediate rash Verified 06/10/24 12:57 Antibiotics) codeine AdvReac Unknown NAUSEA/VOMI Verified 06/10/24 12:57 TING chocolate Allergy Unknown severe Uncoded 05/08/24 12:43 headaches/vomiting Active Medications: Current Medications Acetaminophen (Acetaminophen 325 Mg Tablet) 650 mg PO Q6H PRN PRN Reason: Pain, Mild (Pain Scale 1-3), fever or headache Last Admin: 06/13/24 07:52 Dose: 650 mg Calcium Carbonate (Calcium Carbonate 750 Mg Tab.Chew) 750 mg PO Q4H PRN PRN Reason: Heartburn Gabapentin (Gabapentin 300 Mg Capsule) 300 mg PO BEDTIME [facility] Last Admin: 06/13/24 19:41 Dose: 300 mg Lactated Ringer's (Lr) 1,000 mls @ 100 mls/hr IVCONT .Q10H [facility] Last Admin: 06/14/24 13:44 Dose: 100 mls/hr Lidocaine (Lidocaine 5 % Ointment 35 Gm) 1 appl TOPICAL Q6H PRN; Protocol PRN Reason: right flank pain Magnesium Hydroxide (Milk Of Magnesia 30 Ml Oral.Susp) 30 ml PO DAILY PRN PRN Reason: Constipation Melatonin (Melatonin 3 Mg Tablet) 6 mg PO BEDTIME PRN PRN Reason: Insomnia Metoprolol Tartrate (Metoprolol Tartrate 12.5 Mg Halftab) 12.5 mg PO BID [facility]; Protocol Last Admin: 06/14/24 10:34 Dose: 12.5 mg Pantoprazole Sodium (Pantoprazole Sodium 40 Mg/10 Ml Vial) 40 mg IVPUSH BID@0630,1630 [facility] Last Admin: 06/14/24 06:07 Dose: 40 mg Quetiapine Fumarate (Quetiapine Fumarate 25 Mg Tablet) 25 mg PO DAILY [facility] Last Admin: 06/14/24 10:34 Dose: 25 mg Sodium Chloride (0.9 % Sodium Chloride Flush 3 Ml Syringe) 3 ml IVFLUSH QSHIFT [facility] Last Admin: 06/14/24 10:35 Dose: 3 ml Home Medications ?Medication ?Instructions ?Recorded ?Confirmed ?Last Taken ?Type omeprazole 20 mg capsule,delayed 20 mg PO DAILY@0630 01/08/22 06/10/24 06/10/24 History release rivaroxaban 20 mg tablet (Xarelto) 20 mg PO BEDTIME 04/27/24 06/10/24 06/09/24 History folic acid 800 mcg tablet 0.8 mg PO DAILY 06/10/24 06/10/24 06/10/24 History Exam Height,Weight and Vital Signs: Height 5 ft 4 in Weight 57.3 kg Last Vital Signs Temp 98.1 F 06/14/24 13:17 Pulse 90 06/14/24 13:17 Resp 16 06/14/24 13:17 BP 149/81 H 06/14/24 13:17 Pulse Ox 99 06/14/24 13:17 O2 Del Method Room Air 06/14/24 13:17 Pertinent Lab Results Pertinent Lab Results: Laboratory Tests 06/10/24 06/10/24 06/10/24 13:22 14:09 15:18 WBC 5.7 RBC 2.96 L Hgb 8.2 L Hct 26.7 L MCV 90.2 MCH 27.7 MCHC 30.7 L RDW 21.8 H Plt Count 188 D MPV 10.2 Immature Gran % (Auto) 0.4 Neut % (Auto) 66.4 Lymph % (Auto) 17.9 L [place] % (Auto) 14.2 H Eos % (Auto) 0.4 Baso % (Auto) 0.7 Lymph # (Auto) 1.0 L [place] # (Auto) 0.8 Eos # (Auto) 0.0 Baso # (Auto) 0.0 Abs Immat Gran (auto) 0.02 Absolute Neuts (auto) 3.8 Absolute Nucleated RBC 0.000 Nucleated RBC % (auto) 0.0 Smear Tech's Comments PT 13.7 H INR 1.1 APTT 30.6 Sodium 139 Potassium 4.0 Chloride 106 Carbon Dioxide 19 L Anion Gap 18 BUN 22 H Creatinine 1.27 Estim Creat Clear Calc 29.9 Estimated GFR 40 Random Glucose 115 Fasting Glucose Calcium 9.2 D Magnesium 2.2 Total Bilirubin 0.4 Direct Bilirubin 0.2 AST 20 ALT 10 Alkaline Phosphatase 113 Troponin I High Sens 2.7 Total Protein 7.1 Albumin 3.7 Lipase 41 Urine Color Urine Appearance Urine pH Ur Specific [place] Urine Protein Urine Glucose (UA) Urine Ketones Urine Blood Urine Nitrite Ur Leukocyte Esterase Urine RBC Urine WBC Ur Squamous Epith Cells Urine Bacteria Hyaline Casts Stool Occult Blood POSITIVE Blood Type O Positive Antibody Screen POSITIVE Antibody Identification Inconclusive Crossmatch ([facility]) See Detail 06/10/24 06/10/24 06/10/24 16:15 17:02 20:06 WBC 6.0 RBC 2.62 L Hgb 7.2 L 7.1 L Hct 23.8 L 23.0 L MCV 90.8 MCH 27.5 MCHC 30.3 L RDW 21.6 H Plt Count 161 MPV 10.5 Immature Gran % (Auto) 0.3 Neut % (Auto) 58.9 Lymph % (Auto) 21.6 [place] % (Auto) 17.8 H Eos % (Auto) 0.7 Baso % (Auto) 0.7 Lymph # (Auto) 1.3 [place] # (Auto) 1.1 Eos # (Auto) 0.0 Baso # (Auto) 0.0 Abs Immat Gran (auto) 0.02 Absolute Neuts (auto) 3.6 Absolute Nucleated RBC 0.000 Nucleated RBC % (auto) 0.0 Smear Tech's Comments PT INR APTT Sodium Potassium Chloride Carbon Dioxide Anion Gap BUN Creatinine Estim Creat Clear Calc Estimated GFR Random Glucose Fasting Glucose Calcium Magnesium Total Bilirubin Direct Bilirubin AST ALT Alkaline Phosphatase Troponin I High Sens Total Protein Albumin Lipase Urine Color Yellow Urine Appearance Clear Urine pH 7.0 Ur Specific [place] >= 1.030 H Urine Protein Negative Urine Glucose (UA) Negative Urine Ketones Trace Urine Blood Negative Urine Nitrite Negative Ur Leukocyte Esterase Small (1+) H Urine RBC 0-2 Urine WBC 21-50 H Ur Squamous Epith Cells 3-5 Urine Bacteria 4+ Hyaline Casts 0-2 Stool Occult Blood Blood Type Antibody Screen Antibody Identification Crossmatch ([facility]) 06/11/24 06/12/24 06/13/24 05:47 06:08 06:47 WBC 4.8 5.4 5.0 RBC 3.05 L 3.24 L 3.41 L Hgb 8.4 L 8.8 L 9.5 L Hct 27.0 L 28.3 L 30.5 L MCV 88.5 87.3 89.4 MCH 27.5 27.2 27.9 MCHC 31.1 31.1 31.1 RDW 23.9 H 23.6 H 23.4 H Plt Count 161 152 L 136 L MPV 10.7 9.9 10.1 Immature Gran % (Auto) 0.2 0.2 Neut % (Auto) 62.1 59.0 Lymph % (Auto) 18.7 L 17.0 L [place] % (Auto) 17.4 H 21.2 H Eos % (Auto) 0.8 1.8 Baso % (Auto) 0.8 0.8 Lymph # (Auto) 0.9 L 0.9 L [place] # (Auto) 0.8 1.1 Eos # (Auto) 0.0 0.1 Baso # (Auto) 0.0 0.0 Abs Immat Gran (auto) 0.01 0.01 Absolute Neuts (auto) 3.0 2.9 Absolute Nucleated RBC 0.000 0.000 0.000 Nucleated RBC % (auto) 0.0 0.0 0.0 Smear Tech's Comments VERIFIED PT INR APTT Sodium 139 Potassium 4.3 Chloride 109 H Carbon Dioxide 22 Anion Gap 10 L BUN 16 Creatinine 1.01 Estim Creat Clear Calc 37.7 Estimated GFR 53 Random Glucose 93 Fasting Glucose Calcium 8.4 D Magnesium Total Bilirubin 1.1 H Direct Bilirubin 0.4 AST 18 ALT 8 Alkaline Phosphatase 89 Troponin I High Sens Total Protein 5.8 L Albumin 3.1 L Lipase Urine Color Urine Appearance Urine pH Ur Specific [place] Urine Protein Urine Glucose (UA) Urine Ketones Urine Blood Urine Nitrite Ur Leukocyte Esterase Urine RBC Urine WBC Ur Squamous Epith Cells Urine Bacteria Hyaline Casts Stool Occult Blood Blood Type Antibody Screen Antibody Identification Crossmatch ([facility]) 06/14/24 06/14/24 07:06 10:51 WBC 4.4 L RBC 3.33 L Hgb 9.1 L Hct 29.2 L MCV 87.7 MCH 27.3 MCHC 31.2 RDW 23.2 H Plt Count 126 L MPV 9.1 L Immature Gran % (Auto) 0.5 H Neut % (Auto) 59.7 Lymph % (Auto) 17.7 L [place] % (Auto) 20.0 H Eos % (Auto) 1.4 Baso % (Auto) 0.7 Lymph # (Auto) 0.8 L [place] # (Auto) 0.9 Eos # (Auto) 0.1 Baso # (Auto) 0.0 Abs Immat Gran (auto) 0.02 Absolute Neuts (auto) 2.6 Absolute Nucleated RBC 0.000 Nucleated RBC % (auto) 0.0 Smear Tech's Comments PT INR APTT Sodium 139 Potassium 4.0 Chloride 106 Carbon Dioxide 25 Anion Gap 12 BUN 7 L Creatinine 1.02 Estim Creat Clear Calc 37.3 Estimated GFR 52 Random Glucose Fasting Glucose 96 Calcium 8.9 Magnesium Total Bilirubin 0.5 Direct Bilirubin 0.2 AST 19 ALT 11 Alkaline Phosphatase 91 Troponin I High Sens Total Protein 6.2 L Albumin 3.2 L Lipase Urine Color Urine Appearance Urine pH Ur Specific [place] Urine Protein Urine Glucose (UA) Urine Ketones Urine Blood Urine Nitrite Ur Leukocyte Esterase Urine RBC Urine WBC Ur Squamous Epith Cells Urine Bacteria Hyaline Casts Stool Occult Blood Blood Type O Positive Antibody Screen POSITIVE Antibody Identification Inconclusive Crossmatch ([facility]) See Detail Airway Mallampati Class: III TM Dist: >3cm Neck ROM: Limited Loose/Missing/Broken Teeth: Yes, Upper and Lower Heart: RRR Lungs: CTA Assessment and Plan Assessment Anesthesia Assessment: Anesthesia Plan Discussed and Chart Reviewed Final Anesthetic Review Family History of Problems with Anesthesia: No History of Problems with Anesthesia: No NPO: Yes ASA Class: III Final Preanesthetic Review: Meds/Allgs Chart Reviewed, Consent Obtained/Reviewed and Anes Risks/Benef Reviewed Patient Risk: Intermediate Procedure Risk: Intermediate Anesthetic Plan Anesthetic Plan: GA Disposition: Standard PACU
--- NOTE | 2024-06-14 15:03 | HO.PM.IMPN ---
Subjective Subjective Date of Service: 06/14/24 Interval History: NPO is scheduled for upper endoscopy/colonoscopy and ERCP feels anxious offers no acute complaints of fever chills, no abdominal pain, no nausea, no vomiting, weakness or dizziness. Review of Systems All other system reviewed and are negative. Physical Exam Vital Signs: Vital Signs: Last Vital Signs Temp 98.1 F 06/14/24 13:17 Pulse 90 06/14/24 13:17 Resp 16 06/14/24 13:17 BP 149/81 H 06/14/24 13:17 Pulse Ox 99 06/14/24 13:17 O2 Del Method Room Air 06/14/24 13:17 BMI result Body Mass Index 21.7 Const: Other: General resting comfortably in no acute distress. Neck no JVD. CVS regular rate rhythm, Respiratory lungs clear to auscultation, no respiratory distress, no wheeze, no rhonchi. Gastrointestinal abdomen soft, non tender, bowel sounds audible, no guarding , no rigidity. Extremities no edema. Neuro non focal Skin no rash Appropriate affect Objective Data Active Medications Acetaminophen (Acetaminophen 325 Mg Tablet) 650 mg PO Q6H PRN PRN Reason: Pain, Mild (Pain Scale 1-3), fever or headache Last Admin: 06/13/24 07:52 Dose: 650 mg Documented By: KOURTNEY Acetaminophen (Acetaminophen 325 Mg Tablet) 650 mg PO ONCE PRN PRN Reason: Pain, Mild (Pain Scale 1-3) Stop: 06/14/24 20:31 Albuterol/Ipratropium (Albuterol/Iprat 2.5/0.5mg 3 Ml Ampul.Neb) 3 ml INHALE ONCE PRN PRN Reason: Bronchospasm/wheezing Stop: 06/14/24 20:31 Calcium Carbonate (Calcium Carbonate 750 Mg Tab.Chew) 750 mg PO Q4H PRN PRN Reason: Heartburn Gabapentin (Gabapentin 300 Mg Capsule) 300 mg PO BEDTIME [facility] Last Admin: 06/13/24 19:41 Dose: 300 mg Documented By: RIGOBERTO Lactated Ringer's (Lr) 1,000 mls @ 100 mls/hr IVCONT .Q10H [facility] Last Admin: 06/14/24 13:44 Dose: 100 mls/hr Documented By: MOLLY Lidocaine (Lidocaine 5 % Ointment 35 Gm) 1 appl TOPICAL Q6H PRN; Protocol PRN Reason: right flank pain Magnesium Hydroxide (Milk Of Magnesia 30 Ml Oral.Susp) 30 ml PO DAILY PRN PRN Reason: Constipation Melatonin (Melatonin 3 Mg Tablet) 6 mg PO BEDTIME PRN PRN Reason: Insomnia Metoprolol Tartrate (Metoprolol Tartrate 12.5 Mg Halftab) 12.5 mg PO BID [facility]; Protocol Last Admin: 06/14/24 10:34 Dose: 12.5 mg Documented By: LOBITO Ondansetron HCl (Ondansetron Hcl 4 Mg/2 Ml Vial) 4 mg IVPUSH ONCE PRN PRN Reason: Nausea and Vomiting Stop: 06/14/24 20:31 Pantoprazole Sodium (Pantoprazole Sodium 40 Mg/10 Ml Vial) 40 mg IVPUSH BID@0630,1630 [facility] Last Admin: 06/14/24 06:07 Dose: 40 mg Documented By: RIGOBERTO Quetiapine Fumarate (Quetiapine Fumarate 25 Mg Tablet) 25 mg PO DAILY [facility] Last Admin: 06/14/24 10:34 Dose: 25 mg Documented By: LOBITO Sodium Chloride (0.9 % Sodium Chloride Flush 3 Ml Syringe) 3 ml IVFLUSH QSHIFT [facility] Last Admin: 06/14/24 10:35 Dose: 3 ml Documented By: LOBITO Labs 06/14/24 07:06 06/14/24 07:06 Labs: Laboratory Results - last 24 hr 06/10/24 06/14/24 06/14/24 14:09 07:06 10:51 MCV 87.7 MCH 27.3 MCHC 31.2 RDW 23.2 H Plt Count 126 L MPV 9.1 L Immature Gran % (Auto) 0.5 H Neut % (Auto) 59.7 Lymph % (Auto) 17.7 L [place] % (Auto) 20.0 H Eos % (Auto) 1.4 Baso % (Auto) 0.7 Lymph # (Auto) 0.8 L [place] # (Auto) 0.9 Eos # (Auto) 0.1 Baso # (Auto) 0.0 Abs Immat Gran (auto) 0.02 Absolute Neuts (auto) 2.6 Absolute Nucleated RBC 0.000 Nucleated RBC % (auto) 0.0 Anion Gap 12 Estim Creat Clear Calc 37.3 Estimated GFR 52 Fasting Glucose 96 Calcium 8.9 Total Bilirubin 0.5 Direct Bilirubin 0.2 AST 19 ALT 11 Alkaline Phosphatase 91 Total Protein 6.2 L Albumin 3.2 L Blood Type O Positive O Positive Antibody Screen POSITIVE POSITIVE Antibody Identification Inconclusive Inconclusive Crossmatch ([facility]) See Detail See Detail Assessment and Plan (1) Cholelithiasis: Status: Acute (2) Choledocholithiasis: Status: Acute Plan [id number]-[id number]-gygj-old female with pertinent history of mood disorder, history of PE on Xarelto, Alzheimer's dementia, gastroesophageal reflux disease, recurrent UTI, history of breast cancer (2006) in remission, peripheral neuropathy admitted for acute gi bleed with acute symptomatic blood loss anemia #acute gi bleed with acute symptomatic blood loss anemia -no recurrent episodes of GI bleed, normal orthostatic BP, -status post 1 unit of packed RBC hematocrit improved and remained stable -hold xarelto,iv ppi -seen by Dr. Correia he plans to proceed with ERCP, egd/colonoscopy today /NPO, Xarelto on hold enjoy life -monitor on telemetry # history of PE -hold Xarelto due to above # abnormal CT finding-question choledocholithiasis - MRCP showed choledocholithiasis with dilatation with the distal common bile duct, cholelithiasis, scheduled for ERCP on 06/14, normal liver enzymes. -seen by General surgery they plan on cholecystectomy on 06/15 # Alzheimer's dementia with mood disorder -continue quetiapine # GERD -on PPI # unspecified peripheral neuropathy -continue gabapentin DVT prophylaxis-compression due to GI bleed Full code Patient requires continued inpatient hospitalization for management of an acute GI bleed with symptomatic blood loss anemia requiring blood transfusion, close monitoring of hemodynamics, is scheduled for upper endoscopy/colonoscopy ERCP and cholecystectomy. Quality Stroke Does the patient have a stroke diagnosis?: No VTE Prior VTE?: No VTE Risk Level:: Medical - moderate - high VTE Device Contraindication: N/A - Device Ordered VTE Drug Contraindication: Treatment Not Indicated
--- NOTE | 2024-06-14 16:07 | P.CONGS_ITS ---
History of Present Illness Consult details Consult date: 06/14/24 Requesting physician: Praful Correia Narrative: 83-year-old female patient presenting with GI bleed currently undergoing a colonoscopy and ERCP. During the ERCP apparent perforation was identified. I was asked to see the patient for further management of this potential duodenal perforation. Review of Systems 2 Review of Systems: Unable to obtain due to general anesthesia [facility] Past Medical History Medical History Pressure ulcer Chronic bacteriuria Urinary incontinence Bilateral hip pain Venous insufficiency of both lower extremities Bilateral knee pain Arthritis of lumbosacral spine Chronic diarrhea TIA (transient ischemic attack) UTI (urinary tract infection) Hallucination Confusion Diarrhea Supratherapeutic INR Weakness Cognitive change Pernicious anemia Osteoporosis Peripheral neuropathy Impaired fasting glucose Irritable bowel syndrome Breast cancer Thrombocytopenia Hypomagnesemia Hx of hypercalcemia History of alcohol use B12 deficiency Fatty liver, alcoholic HTN (hypertension) Hx of metabolic acidosis GERD (gastroesophageal reflux disease) Hx of deep venous thrombosis Hx of tuberculosis History of pulmonary embolism History of right breast cancer Osteoarthritis of left knee Family History Family History Father No problems noted. Mother No problems noted. Other No family history of cancer Surgical History Surgical History History of left knee surgery History of arthroplasty of left knee Hx of adenoidectomy History of esophagogastroduodenoscopy (EGD) History of evacuation of hematoma Hx of colonoscopy History of cataract surgery History of cystoscopy History of knee replacement procedure of right knee History of lumpectomy of right breast History of tonsillectomy H/O right mastectomy S/P SASHA-BSO (total abdominal hysterectomy and bilateral salpingo-oophorectomy) History of appendectomy Social History Social History Household Members: Spouse Housing: House Are you a primary youth care professional to a significant other at home: No Do you presently have visiting nurse or other home services: No Alcohol intake: former Comment: see RN note Patient Tobacco Use Status: Never used Tobacco Smoked in Last 30 Days: No e-Cigarette/Vaping Use: Never Used Second Hand Smoke Exposure: No Use of substances other than those prescribed or required for medical reasons: No Currently Displaying Signs/Symptoms of Drug Intoxication Withdrawal: No Have you been hit, kicked, punched, or otherwise hurt by someone within the past year? If so, by whom?: No Do you feel safe in your current relationship?: Yes Is there a partner from a previous relationship who is making you feel unsafe now?: No Are you made to feel afraid or neglected: No Are you DNR?: No Advance Directives: Yes Advance Directives on File: Yes Advance Directives Date on File: 12/24/21 Do you have a plan to hurt others: No Plan Recently lost weight without trying: No Nutrition Risks: No Nutritional Risk Patient : No service: No Current occupational status: retired Cognitive needs: No Hearing needs: No Vision needs: Yes Meds Allergies Allergy/AdvReac Type Severity Reaction Status Date / Time sulfamethoxazole Allergy Severe Itching Verified 06/10/24 12:57 [From Bactrim] trimethoprim [From Bactrim] Allergy Severe Itching Verified 06/10/24 12:57 cortisone [Cortisone] Allergy Mild PT STATES, Verified 06/10/24 12:57 hx TB IT COULD AFFECT CRYSTALS IN LUNG prochlorperazine Allergy Mild LEG Verified 06/10/24 12:57 [From Compazine] NUMBNESS hydrochlorothiazide Allergy Unknown RASH Verified 06/10/24 12:57 levofloxacin [Levaquin] Allergy Unknown Wakefulness, Verified 06/10/24 12:57 nausea, shaking Sulfa (Sulfonamide AdvReac Intermediate rash Verified 06/10/24 12:57 Antibiotics) codeine AdvReac Unknown NAUSEA/VOMI Verified 06/10/24 12:57 TING chocolate Allergy Unknown severe Uncoded 05/08/24 12:43 headaches/vomiting Active Medications: Current Medications Acetaminophen (Acetaminophen 325 Mg Tablet) 650 mg PO Q6H PRN PRN Reason: Pain, Mild (Pain Scale 1-3), fever or headache Last Admin: 06/13/24 07:52 Dose: 650 mg Acetaminophen (Acetaminophen 325 Mg Tablet) 650 mg PO ONCE PRN PRN Reason: Pain, Mild (Pain Scale 1-3) Stop: 06/14/24 20:31 Albuterol/Ipratropium (Albuterol/Iprat 2.5/0.5mg 3 Ml Ampul.Neb) 3 ml INHALE ONCE PRN PRN Reason: Bronchospasm/wheezing Stop: 06/14/24 20:31 Calcium Carbonate (Calcium Carbonate 750 Mg Tab.Chew) 750 mg PO Q4H PRN PRN Reason: Heartburn Gabapentin (Gabapentin 300 Mg Capsule) 300 mg PO BEDTIME [facility] Last Admin: 06/13/24 19:41 Dose: 300 mg Lactated Ringer's (Lr) 1,000 mls @ 100 mls/hr IVCONT .Q10H [facility] Last Admin: 06/14/24 13:44 Dose: 100 mls/hr Lidocaine (Lidocaine 5 % Ointment 35 Gm) 1 appl TOPICAL Q6H PRN; Protocol PRN Reason: right flank pain Magnesium Hydroxide (Milk Of Magnesia 30 Ml Oral.Susp) 30 ml PO DAILY PRN PRN Reason: Constipation Melatonin (Melatonin 3 Mg Tablet) 6 mg PO BEDTIME PRN PRN Reason: Insomnia Metoprolol Tartrate (Metoprolol Tartrate 12.5 Mg Halftab) 12.5 mg PO BID [facility]; Protocol Last Admin: 06/14/24 10:34 Dose: 12.5 mg Ondansetron HCl (Ondansetron Hcl 4 Mg/2 Ml Vial) 4 mg IVPUSH ONCE PRN PRN Reason: Nausea and Vomiting Stop: 06/14/24 20:31 Pantoprazole Sodium (Pantoprazole Sodium 40 Mg/10 Ml Vial) 40 mg IVPUSH BID@0630,1630 [facility] Last Admin: 06/14/24 06:07 Dose: 40 mg Quetiapine Fumarate (Quetiapine Fumarate 25 Mg Tablet) 25 mg PO DAILY [facility] Last Admin: 06/14/24 10:34 Dose: 25 mg Sodium Chloride (0.9 % Sodium Chloride Flush 3 Ml Syringe) 3 ml IVFLUSH QSHIFT [facility] Last Admin: 06/14/24 10:35 Dose: 3 ml Home Medications ?Medication ?Instructions ?Recorded ?Confirmed ?Last Taken ?Type omeprazole 20 mg capsule,delayed 20 mg PO DAILY@0630 01/08/22 06/10/24 06/10/24 History release rivaroxaban 20 mg tablet (Xarelto) 20 mg PO BEDTIME 04/27/24 06/10/24 06/09/24 History folic acid 800 mcg tablet 0.8 mg PO DAILY 06/10/24 06/10/24 06/10/24 History Physical Exam 2 Vital Signs: Vital Signs: Last Vital Signs Temp 98.1 F 06/14/24 14:31 Pulse 90 06/14/24 14:31 Resp 16 06/14/24 14:31 BP 149/81 H 06/14/24 14:31 Pulse Ox 99 06/14/24 14:31 O2 Del Method Room Air 06/14/24 14:31 BMI result Body Mass Index 21.7 Const: Other: Patient under general anesthesia, unable to examine Results Labs 06/14/24 07:06 06/14/24 07:06 Labs: Abnormal lab results 06/10/24 06/14/24 06/14/24 Range/Units 14:09 07:06 10:51 WBC 4.4 L (4.8-10.8) X10*3/uL RBC 3.33 L (4.20-5.50) X10*6/uL Hgb 9.1 L (12.0-16.0) g/dl Hct 29.2 L (37.0-47.0) % RDW 23.2 H (11.0-16.0) % Plt Count 126 L (160-400) X10*3/uL MPV 9.1 L (9.4-12.3) fL Immature Gran % (Auto) 0.5 H (0.0-0.4) % Lymph % (Auto) 17.7 L (20-40) % [place] % (Auto) 20.0 H (2-11) % Lymph # (Auto) 0.8 L (1.2-4.9) X10*3/uL BUN 7 L (9-16) mg/dL Total Protein 6.2 L (6.5-8.0) g/dL Albumin 3.2 L (3.5-5.0) g/dL Crossmatch ([facility]) See Detail See Detail Short CBC 06/14/24 Range/Units 07:06 WBC 4.4 L (4.8-10.8) X10*3/uL Hgb 9.1 L (12.0-16.0) g/dl Hct 29.2 L (37.0-47.0) % Plt Count 126 L (160-400) X10*3/uL BMP 06/14/24 07:06 Sodium 139 Potassium 4.0 Chloride 106 Carbon Dioxide 25 BUN 7 L Creatinine 1.02 Calcium 8.9 Liver Function 06/14/24 Range/Units 07:06 Total Bilirubin 0.5 (0.0-1.0) mg/dL Direct Bilirubin 0.2 (0.0-0.5) mg/dL AST 19 (5-31) U/L ALT 11 (0-31) U/L Alkaline Phosphatase 91 (39-117) U/L Albumin 3.2 L (3.5-5.0) g/dL Urine 06/10/24 Range/Units 17:02 Urine Color Yellow Urine Appearance Clear Urine pH 7.0 (5.0-9.0) Ur Specific [place] >= 1.030 H (1.005-1.025) Urine Protein Negative (Neg-Trace) mg/dL Urine Glucose (UA) Negative (Negative) mg/dL All other labs normal. Assessment and Plan (1) Duodenal perforation: Status: Acute Plan 83-year-old female patient found to have a duodenal perforation on endoscopy. Dr. Correia and I discussed the findings with the patient's on the telephone. I recommended exploratory laparotomy with repair of the duodenal perforation. After discussion of the procedure, risks and alternatives, the patient's has provided me verbal consent for this emergency procedure. Procedures Date of Service Date of Service: 06/14/24
--- NOTE | 2024-06-14 16:26 | P.CONAN_ITS ---
[facility] Active Problems Active Problems: All Active Problems Duodenal perforation (Acute) Cholelithiasis (Acute) Choledocholithiasis (Acute) Near syncope (Acute) Orthostatic hypotension (Acute) Acute GI bleeding (Acute) Pressure ulcer (Acute) Upper GI bleed (Acute) Chronic bacteriuria (Acute) Fungal skin infection (Acute) Urinary incontinence (Acute) History of pulmonary embolism (Acute) Peripheral vascular disease (Acute) Alzheimer's dementia (Acute) Syncope (Acute). Urinary tract infection (Acute) Hypercholesterolemia (Acute) Varicose veins of left lower extremity with inflammation (Acute) Lumbar spondylosis (Acute) Lumbar radiculopathy (Acute) OAB (overactive bladder) (Acute) Current use of anticoagulant therapy (Acute) Anemia (Acute) Encephalopathy acute (Acute) Urinary tract infection (Acute) Fall (Acute) PUMA (acute kidney injury) (Acute) Status post total knee replacement, left (Acute) Urinary incontinence (Acute) Protein calorie malnutrition (Acute) Osteopenia (Acute) Urinary urgency (Acute) B12 deficiency anemia (Acute) Medicare annual wellness visit, initial (Acute) Overactive bladder (Acute) Nocturia more than twice per night (Acute) GERD (gastroesophageal reflux disease) (Acute) History of right breast cancer (Acute) Impaired fasting glucose (Acute) History of arthroplasty of left knee (Acute) HTN (hypertension) (Acute) Past Medical History Medical History Pressure ulcer Chronic bacteriuria Urinary incontinence Bilateral hip pain Venous insufficiency of both lower extremities Bilateral knee pain Arthritis of lumbosacral spine Chronic diarrhea TIA (transient ischemic attack) UTI (urinary tract infection) Hallucination Confusion Diarrhea Supratherapeutic INR Weakness Cognitive change Pernicious anemia Osteoporosis Peripheral neuropathy Impaired fasting glucose Irritable bowel syndrome Breast cancer Thrombocytopenia Hypomagnesemia Hx of hypercalcemia History of alcohol use B12 deficiency Fatty liver, alcoholic HTN (hypertension) Hx of metabolic acidosis GERD (gastroesophageal reflux disease) Hx of deep venous thrombosis Hx of tuberculosis History of pulmonary embolism History of right breast cancer Osteoarthritis of left knee Family History Family History Father No problems noted. Mother No problems noted. Other No family history of cancer Family history of problems with anesthesia: No Surgical History Surgical History History of left knee surgery History of arthroplasty of left knee Hx of adenoidectomy History of esophagogastroduodenoscopy (EGD) History of evacuation of hematoma Hx of colonoscopy History of cataract surgery History of cystoscopy History of knee replacement procedure of right knee History of lumpectomy of right breast History of tonsillectomy H/O right mastectomy S/P SASHA-BSO (total abdominal hysterectomy and bilateral salpingo-oophorectomy) History of appendectomy History of Problems with Anesthesia: No Social History Social History Household Members: Spouse Housing: House Are you a primary day care home mother to a significant other at home: No Do you presently have visiting nurse or other home services: No Alcohol intake: former Comment: see RN note Patient Tobacco Use Status: Never used Tobacco Smoked in Last 30 Days: No e-Cigarette/Vaping Use: Never Used Second Hand Smoke Exposure: No Use of substances other than those prescribed or required for medical reasons: No Currently Displaying Signs/Symptoms of Drug Intoxication Withdrawal: No Have you been hit, kicked, punched, or otherwise hurt by someone within the past year? If so, by whom?: No Do you feel safe in your current relationship?: Yes Is there a partner from a previous relationship who is making you feel unsafe now?: No Are you made to feel afraid or neglected: No Are you DNR?: No Advance Directives: Yes Advance Directives on File: Yes Advance Directives Date on File: 12/24/21 Do you have a plan to hurt others: No Plan Recently lost weight without trying: No Nutrition Risks: No Nutritional Risk Patient : No service: No Current occupational status: retired Cognitive needs: No Hearing needs: No Vision needs: Yes Meds Allergies Allergy/AdvReac Type Severity Reaction Status Date / Time sulfamethoxazole Allergy Severe Itching Verified 06/10/24 12:57 [From Bactrim] trimethoprim [From Bactrim] Allergy Severe Itching Verified 06/10/24 12:57 cortisone [Cortisone] Allergy Mild PT STATES, Verified 06/10/24 12:57 hx TB IT COULD AFFECT CRYSTALS IN LUNG prochlorperazine Allergy Mild LEG Verified 06/10/24 12:57 [From Compazine] NUMBNESS hydrochlorothiazide Allergy Unknown RASH Verified 06/10/24 12:57 levofloxacin [Levaquin] Allergy Unknown Wakefulness, Verified 06/10/24 12:57 nausea, shaking Sulfa (Sulfonamide AdvReac Intermediate rash Verified 06/10/24 12:57 Antibiotics) codeine AdvReac Unknown NAUSEA/VOMI Verified 06/10/24 12:57 TING chocolate Allergy Unknown severe Uncoded 05/08/24 12:43 headaches/vomiting Active Medications: Current Medications Acetaminophen (Acetaminophen 325 Mg Tablet) 650 mg PO Q6H PRN PRN Reason: Pain, Mild (Pain Scale 1-3), fever or headache Last Admin: 06/13/24 07:52 Dose: 650 mg Acetaminophen (Acetaminophen 325 Mg Tablet) 650 mg PO ONCE PRN PRN Reason: Pain, Mild (Pain Scale 1-3) Stop: 06/14/24 20:31 Albuterol/Ipratropium (Albuterol/Iprat 2.5/0.5mg 3 Ml Ampul.Neb) 3 ml INHALE ONCE PRN PRN Reason: Bronchospasm/wheezing Stop: 06/14/24 20:31 Calcium Carbonate (Calcium Carbonate 750 Mg Tab.Chew) 750 mg PO Q4H PRN PRN Reason: Heartburn Gabapentin (Gabapentin 300 Mg Capsule) 300 mg PO BEDTIME [facility] Last Admin: 06/13/24 19:41 Dose: 300 mg Lactated Ringer's (Lr) 1,000 mls @ 100 mls/hr IVCONT .Q10H [facility] Last Admin: 06/14/24 13:44 Dose: 100 mls/hr Lidocaine (Lidocaine 5 % Ointment 35 Gm) 1 appl TOPICAL Q6H PRN; Protocol PRN Reason: right flank pain Magnesium Hydroxide (Milk Of Magnesia 30 Ml Oral.Susp) 30 ml PO DAILY PRN PRN Reason: Constipation Melatonin (Melatonin 3 Mg Tablet) 6 mg PO BEDTIME PRN PRN Reason: Insomnia Metoprolol Tartrate (Metoprolol Tartrate 12.5 Mg Halftab) 12.5 mg PO BID [facility]; Protocol Last Admin: 06/14/24 10:34 Dose: 12.5 mg Ondansetron HCl (Ondansetron Hcl 4 Mg/2 Ml Vial) 4 mg IVPUSH ONCE PRN PRN Reason: Nausea and Vomiting Stop: 06/14/24 20:31 Pantoprazole Sodium (Pantoprazole Sodium 40 Mg/10 Ml Vial) 40 mg IVPUSH BID@0630,1630 [facility] Last Admin: 06/14/24 06:07 Dose: 40 mg Quetiapine Fumarate (Quetiapine Fumarate 25 Mg Tablet) 25 mg PO DAILY [facility] Last Admin: 06/14/24 10:34 Dose: 25 mg Sodium Chloride (0.9 % Sodium Chloride Flush 3 Ml Syringe) 3 ml IVFLUSH QSHIFT [facility] Last Admin: 06/14/24 10:35 Dose: 3 ml Home Medications ?Medication ?Instructions ?Recorded ?Confirmed ?Last Taken ?Type omeprazole 20 mg capsule,delayed 20 mg PO DAILY@0630 01/08/22 06/10/24 06/10/24 History release rivaroxaban 20 mg tablet (Xarelto) 20 mg PO BEDTIME 04/27/24 06/10/24 06/09/24 History folic acid 800 mcg tablet 0.8 mg PO DAILY 06/10/24 06/10/24 06/10/24 History Exam Height,Weight and Vital Signs: Height 5 ft 4 in Weight 57.3 kg Last Vital Signs Temp 98.1 F 06/14/24 14:31 Pulse 90 06/14/24 14:31 Resp 16 06/14/24 14:31 BP 149/81 H 06/14/24 14:31 Pulse Ox 99 06/14/24 14:31 O2 Del Method Room Air 06/14/24 14:31 Pertinent Lab Results Pertinent Lab Results: Laboratory Tests 06/10/24 06/10/24 06/10/24 13:22 14:09 15:18 WBC 5.7 RBC 2.96 L Hgb 8.2 L Hct 26.7 L MCV 90.2 MCH 27.7 MCHC 30.7 L RDW 21.8 H Plt Count 188 D MPV 10.2 Immature Gran % (Auto) 0.4 Neut % (Auto) 66.4 Lymph % (Auto) 17.9 L [place] % (Auto) 14.2 H Eos % (Auto) 0.4 Baso % (Auto) 0.7 Lymph # (Auto) 1.0 L [place] # (Auto) 0.8 Eos # (Auto) 0.0 Baso # (Auto) 0.0 Abs Immat Gran (auto) 0.02 Absolute Neuts (auto) 3.8 Absolute Nucleated RBC 0.000 Nucleated RBC % (auto) 0.0 Smear Tech's Comments PT 13.7 H INR 1.1 APTT 30.6 Sodium 139 Potassium 4.0 Chloride 106 Carbon Dioxide 19 L Anion Gap 18 BUN 22 H Creatinine 1.27 Estim Creat Clear Calc 29.9 Estimated GFR 40 Random Glucose 115 Fasting Glucose Calcium 9.2 D Magnesium 2.2 Total Bilirubin 0.4 Direct Bilirubin 0.2 AST 20 ALT 10 Alkaline Phosphatase 113 Troponin I High Sens 2.7 Total Protein 7.1 Albumin 3.7 Lipase 41 Urine Color Urine Appearance Urine pH Ur Specific [place] Urine Protein Urine Glucose (UA) Urine Ketones Urine Blood Urine Nitrite Ur Leukocyte Esterase Urine RBC Urine WBC Ur Squamous Epith Cells Urine Bacteria Hyaline Casts Stool Occult Blood POSITIVE Blood Type O Positive Antibody Screen POSITIVE Antibody Identification Inconclusive Crossmatch ([facility]) See Detail 06/10/24 06/10/24 06/10/24 16:15 17:02 20:06 WBC 6.0 RBC 2.62 L Hgb 7.2 L 7.1 L Hct 23.8 L 23.0 L MCV 90.8 MCH 27.5 MCHC 30.3 L RDW 21.6 H Plt Count 161 MPV 10.5 Immature Gran % (Auto) 0.3 Neut % (Auto) 58.9 Lymph % (Auto) 21.6 [place] % (Auto) 17.8 H Eos % (Auto) 0.7 Baso % (Auto) 0.7 Lymph # (Auto) 1.3 [place] # (Auto) 1.1 Eos # (Auto) 0.0 Baso # (Auto) 0.0 Abs Immat Gran (auto) 0.02 Absolute Neuts (auto) 3.6 Absolute Nucleated RBC 0.000 Nucleated RBC % (auto) 0.0 Smear Tech's Comments PT INR APTT Sodium Potassium Chloride Carbon Dioxide Anion Gap BUN Creatinine Estim Creat Clear Calc Estimated GFR Random Glucose Fasting Glucose Calcium Magnesium Total Bilirubin Direct Bilirubin AST ALT Alkaline Phosphatase Troponin I High Sens Total Protein Albumin Lipase Urine Color Yellow Urine Appearance Clear Urine pH 7.0 Ur Specific [place] >= 1.030 H Urine Protein Negative Urine Glucose (UA) Negative Urine Ketones Trace Urine Blood Negative Urine Nitrite Negative Ur Leukocyte Esterase Small (1+) H Urine RBC 0-2 Urine WBC 21-50 H Ur Squamous Epith Cells 3-5 Urine Bacteria 4+ Hyaline Casts 0-2 Stool Occult Blood Blood Type Antibody Screen Antibody Identification Crossmatch ([facility]) 06/11/24 06/12/24 06/13/24 05:47 06:08 06:47 WBC 4.8 5.4 5.0 RBC 3.05 L 3.24 L 3.41 L Hgb 8.4 L 8.8 L 9.5 L Hct 27.0 L 28.3 L 30.5 L MCV 88.5 87.3 89.4 MCH 27.5 27.2 27.9 MCHC 31.1 31.1 31.1 RDW 23.9 H 23.6 H 23.4 H Plt Count 161 152 L 136 L MPV 10.7 9.9 10.1 Immature Gran % (Auto) 0.2 0.2 Neut % (Auto) 62.1 59.0 Lymph % (Auto) 18.7 L 17.0 L [place] % (Auto) 17.4 H 21.2 H Eos % (Auto) 0.8 1.8 Baso % (Auto) 0.8 0.8 Lymph # (Auto) 0.9 L 0.9 L [place] # (Auto) 0.8 1.1 Eos # (Auto) 0.0 0.1 Baso # (Auto) 0.0 0.0 Abs Immat Gran (auto) 0.01 0.01 Absolute Neuts (auto) 3.0 2.9 Absolute Nucleated RBC 0.000 0.000 0.000 Nucleated RBC % (auto) 0.0 0.0 0.0 Smear Tech's Comments VERIFIED PT INR APTT Sodium 139 Potassium 4.3 Chloride 109 H Carbon Dioxide 22 Anion Gap 10 L BUN 16 Creatinine 1.01 Estim Creat Clear Calc 37.7 Estimated GFR 53 Random Glucose 93 Fasting Glucose Calcium 8.4 D Magnesium Total Bilirubin 1.1 H Direct Bilirubin 0.4 AST 18 ALT 8 Alkaline Phosphatase 89 Troponin I High Sens Total Protein 5.8 L Albumin 3.1 L Lipase Urine Color Urine Appearance Urine pH Ur Specific [place] Urine Protein Urine Glucose (UA) Urine Ketones Urine Blood Urine Nitrite Ur Leukocyte Esterase Urine RBC Urine WBC Ur Squamous Epith Cells Urine Bacteria Hyaline Casts Stool Occult Blood Blood Type Antibody Screen Antibody Identification Crossmatch ([facility]) 06/14/24 06/14/24 07:06 10:51 WBC 4.4 L RBC 3.33 L Hgb 9.1 L Hct 29.2 L MCV 87.7 MCH 27.3 MCHC 31.2 RDW 23.2 H Plt Count 126 L MPV 9.1 L Immature Gran % (Auto) 0.5 H Neut % (Auto) 59.7 Lymph % (Auto) 17.7 L [place] % (Auto) 20.0 H Eos % (Auto) 1.4 Baso % (Auto) 0.7 Lymph # (Auto) 0.8 L [place] # (Auto) 0.9 Eos # (Auto) 0.1 Baso # (Auto) 0.0 Abs Immat Gran (auto) 0.02 Absolute Neuts (auto) 2.6 Absolute Nucleated RBC 0.000 Nucleated RBC % (auto) 0.0 Smear Tech's Comments PT INR APTT Sodium 139 Potassium 4.0 Chloride 106 Carbon Dioxide 25 Anion Gap 12 BUN 7 L Creatinine 1.02 Estim Creat Clear Calc 37.3 Estimated GFR 52 Random Glucose Fasting Glucose 96 Calcium 8.9 Magnesium Total Bilirubin 0.5 Direct Bilirubin 0.2 AST 19 ALT 11 Alkaline Phosphatase 91 Troponin I High Sens Total Protein 6.2 L Albumin 3.2 L Lipase Urine Color Urine Appearance Urine pH Ur Specific [place] Urine Protein Urine Glucose (UA) Urine Ketones Urine Blood Urine Nitrite Ur Leukocyte Esterase Urine RBC Urine WBC Ur Squamous Epith Cells Urine Bacteria Hyaline Casts Stool Occult Blood Blood Type O Positive Antibody Screen POSITIVE Antibody Identification Inconclusive Crossmatch ([facility]) See Detail Assessment and Plan Final Anesthetic Review Family History of Problems with Anesthesia: No History of Problems with Anesthesia: No
--- NOTE | 2024-06-14 17:40 | PM.EVENT ---
Event Note Date of Service: 06/14/24 Event Note: GI-Full note dictated Findings: 1. Colonoscopy to the cecum and TI --4mm polyp biopsied/removed from cecum --approx 12-15mm flat but raised polyp removed from cecum with hot snare polypectomy in piecemeal fashion --sigmoid diverticulosis --internal/external hemorrhoids --no AVM's, no bleeding 2. EGD --10mm inflammatory appearing polyp in 2nd portion of duodenum-no active bleeding--not removed as the plan was to remove it after the ERCP but that was not done due to the below complication --mild antral gastritis --hiatal hernia --wide-mouthed diverticulum noted in the esophagus at 25cm 3. Attempted ERCP --attempts at passage of the duodenoscope past the 2nd portion of the duodenum and to the area of the papilla were met with a complication of a perforation in the 2nd portion of the duodenum --the procedure was then terminated and her care was turned over to Dr. Hutson for repair of the perforation I did observe the surgery and the perforation of the 2nd portion of the duodenum was repaired. Dr. Hutson did remove what appeared to be the duodenal polyp described above as well. The GB did not appear inflamed and therefore was not removed given the clinical scenario. The CBD stones remain as well. Plan: Hold all blood thinners for at least 2 weeks. Advance diet as per surgery. Continue PPI. Continue oral Iron. F/U CBC, especially after blood thinners resume as an outpatient. Check pathology of the polyp and we'll see if removal of the polyp solves the anemia issue. May need repeat upper endo at some point to reinspect the area depending on her clinical course. Hold on CCY and ERCP for the time being as she has been relatively asymptomatic. However, those issues may need to be addressed at some point, especially if she becomes symptomatic. D/W . Thanks Time Spent With Patient Time: Total time managing care of this patient today ____ minutes.
--- NOTE | 2024-06-14 17:57 | W.PM.OPN ---
Operative Note Operative Note Date of Service: 06/14/24 Narrative: Preoperative diagnosis: Duodenal perforation Postoperative diagnosis: Same Procedure: Exploratory laparotomy, removal of duodenal polyp, repair of duodenal perforation with omental patch Surgeon: Jose Angel Hutson MD Head Of Conservation: None Anesthesia: General endotracheal Indications for procedure: 83-year-old female patient undergoing colonoscopy and ERCP and noted to have a duodenal perforation during the procedure. Findings were discussed with the patient's and arrangements made for exploratory laparotomy. Operative findings: 1 cm perforation in the 1st portion of the duodenal along the lateral/anti mesenteric surface with an exposed polyp at this location. Gallbladder was nondilated, soft with no evidence of acute cholecystitis. Specimen: Duodenal polyp Estimated blood loss: 20 mL Complications: None Procedure details: Patient was brought to the OR and placed in a supine position. Patient was already on her general anesthesia. Abdomen was prepped with ChloraPrep and draped in a sterile fashion. A surgical time-out called. Patient received preoperative antibiotics. A subcostal incision was created on the right side and carried out through subcutaneous tissue. Incision was carried down through anterior rectus sheath using electrocautery. Rectus muscle was divided with electrocautery. Posterior sheath and peritoneum was then divided. Abdomen was then entered. The abdomen was explored. A Bookwalter retractor was placed. The stomach was then brought up through the incision. Perforation was noted in the 1st portion of duodenal towards the junction with the 2nd portion of duodenal. No other injury to the bowel could be identified. Only a small amount of bilious fluid was noted immediately surrounding the opening. No free intraperitoneal air was identified. A polyp was noted emanating from the small tear. This was grasped with a forceps and excised using electrocautery. No bleeding was noted from the polypectomy site. The tear was then repaired using Lembert 3-0 Surgilon sutures to close the clean margins of the tear. An omental patch was then placed over the repair and secured using Surgilon sutures as well. A large flat Cristi-Lewis drain was then placed over the omental repair and brought out through a separate stab wound in the right upper quadrant. This was secured using a nylon suture. The abdomen was then irrigated with saline solution and suctioned dry. No bleeding or leak could be identified. Abdomen was then closed in layers beginning with the peritoneum and posterior sheath using a running 0 Polysorb suture. Internal oblique muscle was reapproximated using interrupted 0 Polysorb sutures. Anterior rectus sheath was then closed using a running 0 Polysorb suture. Dermis was then reapproximated using interrupted 3-0 Polysorb sutures and skin closed using skin bettina. Sterile dressings were then applied. The patient tolerated the procedure well. Sponge, instrument, and needle counts reported as correct. The patient was transferred to PACU in stable condition.
--- NOTE | 2024-06-14 18:08 | P.BOP_ITS ---
Brief Operative Note Date of Service: 06/14/24 Pre-op diagnosis: GI bleeding, Choledocholithiasis Post-op diagnosis: other (Colon polyps, Diverticulosis, Hiatal hernia, Gastritis, Duodenal polyp. ERCP terminated due to complication as below) Procedure: Colonoscopy to the cecum and TI with bx/removal of polyp and hot snare polypectomy x1. EGD. Aborted ERCP due to complication as below. Surgeon: Praful Correia MD Anesthesia: GETA Was an Vegetable Loader Machine Operator used for this Procedure?: No Estimated blood loss (mL): 2.0 Pathology: other (A. Cecal polyps) Condition: stable Disposition: other (Kept in OR for surgical repair of duodenal perforation) Complications (if any): Duodenal perforation during ERCP
[2024-06-14] MEDS: fentaNYL citrate/PF 100 MCG/2 ML VIAL 25 MCG IVPUSH ×2 (18:20→18:30)
[2024-06-14] MEDS: Morphine Sulfate 4 MG/ML CARTRIDGE 3 MG IVPUSH ×2 (19:42→23:34)
[2024-06-14] MEDS: Gabapentin 300 MG CAPSULE PO (19:43)
[2024-06-14] MEDS: Piperacillin Sodium/Tazobactam 3.375 GM in 0.9 % Sodium Chloride 50 ML IV (19:43)
--- NOTE | 2024-06-14 20:09 | PC.NURSE ---
Patient arrived back to s4 from PACU at 18:50. A&Ox4, drowsy but appropriately arousable to voice. Pt has hirsch in place reported by ARTIST MANNEQUIN COLORING placed in OR today; Covering Dr. Montoya notified and order requested. Surgical DSD to RUQ is c/d/i, RANJEET drain is to bulb sx, intact and functioning, emptied for 30ml thin serosanguinous output by press writer this evening. Double IVFs ordered, clarified by MD. Single IV access to left arm, attempted to obtain another though initial attempts unsuccessful. Zosyn infusing as ordered followed by D5/LR after that due to incompatibility. Pt repositioned, SCDs in place. Bed alarm on and safety measures in place.
[2024-06-14] MEDS: Dextrose 5 % and Lactated Ring 1,000 ML 100 ML IVCONT (20:17)
--- NOTE | 2024-06-14 21:17 | PC.NURSE ---
PT NPO for procedure today, toleratingwell. She was also noted to have brownish bruising? on inner thighs/creases of kate area and labia. Pt states it is not painful and is bruises from her incontinence pads at home. Suspect MASD as is noted also to buttocks and pt states she is a heavy wetter at home. barrier cream applied. Discused with Wound nurse Lisa.
[2024-06-15] VITALS (12 sets, daily range): BP systolic 101–149; BP diastolic 50–74; PULSE 85–99; RESP 16–20; TEMP 36.2–36.9; O2SAT 97–100
[2024-06-15] MEDS: Piperacillin Sodium/Tazobactam 3.375 GM in 0.9 % Sodium Chloride 50 ML IV ×4 (01:49→22:09)
--- NOTE | 2024-06-15 03:40 | OP_ITS ---
DATE OF SERVICE: 06/14/2024 SURGEON: Praful Correia MD PREOPERATIVE DIAGNOSIS: POSTOPERATIVE DIAGNOSIS: PROCEDURE PERFORMED: ESTIMATED BLOOD LOSS: COMPLICATIONS: ANESTHESIA: General anesthesia. ASSISTANTS: SPECIMENS: PREOPERATIVE DIAGNOSES: Gastrointestinal bleeding and choledocholithiasis. POSTOPERATIVE DIAGNOSES: Gastrointestinal bleeding and choledocholithiasis, colon polyps, diverticulosis, internal and external hemorrhoids, duodenal polyp, mild gastritis, hiatal hernia, and terminated endoscopic retrograde cholangiopancreatography due to a duodenal perforation. PROCEDURES PERFORMED: Colonoscopy to the cecum and terminal ileum with biopsy removal of polyp, and hot snare polypectomy x1, esophagogastroduodenoscopy, and attempted endoscopic retrograde cholangiopancreatography, which had to be terminated due to a complication of a duodenal perforation. Full consent has been obtained from the patient for the procedures, including risks of bleeding, perforation, cholangitis, and pancreatitis. DESCRIPTION OF PROCEDURE: The patient was placed in the left lateral decubitus position. The digital rectal exam revealed no abnormalities other than some small external hemorrhoids. The Olympus video pediatric colonoscope was entered into the rectum and advanced easily to the cecum. Once in the cecum, I did identify cecal pouch with appendiceal orifice and a normal-appearing ileocecal valve. The terminal ileum was cannulated and appeared normal. The scope was withdrawn back in the colon. The entire cecum was well visualized. In the cecum, there was an approximately 4 mm polyp, which was removed by cold biopsy forceps. Also, in the cecum, opposite to the ileocecal valve, there was a flat, but raised approximately 12 to 15 mm polypoid lesion, which was removed in piecemeal fashion by hot snare polypectomy with pieces recovered for pathology. The polypectomy site appeared clean, without any sign of residual polyp nor bleeding. The remainder of the cecum appeared normal. The scope was then slowly withdrawn assessing all mucosal surfaces carefully. Preparation was excellent. I did not visualize any other polyps, colitis, or angiodysplasia. There was a moderate amount of sigmoid diverticulosis. In the rectum, scope was retroflexed visualizing internal hemorrhoids, but no other pathology. The rectal mucosa appeared normal. The scope was straightened and withdrawn the patient. She was turned around for the upper endoscopy. The Olympus video gastroscope was passed in the posterior oropharynx and upper esophagus under direct vision. At 25 cm in the esophagus, there was a fairly large wide-mouth diverticulum, but without any sign of mucosal abnormalities within it. There was no retained food. I was able to get past this and follow the lumen to the distal esophagus. The gastroesophageal junction appeared at 35 cm. There was some minimal irregularity consistent with reflux, but no evidence of any inflammation nor Albarran's esophagus. The scope was entered into the stomach. There was a small hiatal hernia. The scope was advanced to pylorus, and the duodenum was cannulated to the descending portion. The duodenum including the bulb was carefully inspected. In the second portion of the duodenum, there was what appeared to be an inflammatory polyp that had been seen on her previous endoscopy. The duodenal bulb appeared normal. The plan was to eventually remove that polyp given her recent bleeding again. However, I thought it be best to be done after the ERCP was completed. The scope was withdrawn back in the stomach. The gastric antrum and body otherwise appeared normal beside the mild gastritis. There was good peristalsis. The scope was retroflexed, visualizing the proximal stomach carefully, which appeared normal, without any sign of mass or ulceration. The scope was straightened and withdrawn back to the esophagus. The esophageal mucosa appeared normal. The scope was withdrawn from the patient. At that point, the patient was turned into the semiprone position. The Olympus video therapeutic duodenoscope was passed in the posterior oropharynx and upper esophagus. The scope was advanced carefully past the esophageal diverticulum and into the stomach. The scope was advanced to the pylorus. The above-mentioned duodenal polyp was visualized with the duodenoscope. The scope was able to be advanced past the polyp, but I could not enter the descending duodenum to get to the major papilla. With the usual attempts at advancement of the scope a complication occurred with a duodenal perforation. At that point, the procedure was terminated. Dr. Hutson from Surgery was consulted urgently, and he came into the operating room and assumed care of the patient for repair of the perforation. Of note, I did stay to watch the surgery and as he found the perforation in the duodenum, the above-mentioned polyp did appear to be right at that opening. As such, he was able to remove it. I do believe that was the polyp I visualized. The perforation was repaired. Dr. Hutson did inspect the gallbladder and did not visualize any sign of inflammation. At that point, given the clinical scenario of this complication and need for urgent surgery, it was felt best to avoid cholecystectomy at this time given no urgent indication. IMPRESSION: 1. Colon polyps. 2. Diverticulosis. 3. Internal and external hemorrhoids. 4. Duodenal polyp. 5. Hiatal hernia. 6. Mild gastritis. 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 I would hold her blood thinners for at least 2 weeks. I would recommend that her blood count to be followed closely if and when her blood thinners are again resumed as an outpatient, and we shall see if the removal of the polyp today would hopefully relieve the issue of the anemia. At some point depending upon her clinical course, we may need to reinspect that area, but obviously we have to wait at least a month or 2 after the surgery. In regard to the common duct stones, those theoretically should be addressed at some point, but they have been asymptomatic in regard to the patient not having any pain, signs of cholangitis, nor any particularly abnormal LFTs. However, at some point, we may need to readdress that so as to prevent problems in the future. This has all been discussed with the patient's in detail. Of note, he was called after the complication and prior to the surgery. I did advise him of the nature of the complication and her need for surgery. He did give his permission for that. MD WILMER Viveros/JOSÉ MIGUEL / [id number] IAN
[2024-06-15] MEDS: Morphine Sulfate 4 MG/ML CARTRIDGE 3 MG IVPUSH (05:14)
[2024-06-15] MEDS: Dextrose 5 % and Lactated Ring 1,000 ML 100 ML IVCONT (05:14)
[2024-06-15] MEDS: Pantoprazole Sodium 40 MG/10 ML VIAL IVPUSH ×2 (05:15→16:27)
[2024-06-15] MEDS: 0.9 % Sodium Chloride Flush 3 ML SYRINGE IVFLUSH ×2 (07:28→18:02)
[2024-06-15 07:36] LABS: Basophils Percent Auto 0.3 % (0-2); Hematocrit 28.4 % (37.0-47.0); Hemoglobin 8.7 g/dl (12.0-16.0); Imm Gran Abs Auto 0.04 X10*3/uL (0.00-0.03); Imm Gran Pct Auto 0.5 % (0.0-0.4); Lymphocytes Absolute Auto 0.6 X10*3/uL (1.2-4.9); Lymphocytes Percent Auto 7.3 % (20-40); Mean Corpuscular HGB Conc 30.6 g/dl (31.0-35.0); Mean Corpuscular Hemoglobin 27.4 pg (27.0-33.0); Mean Corpuscular Volume 89.3 fL (80.0-98.0); Mean Platelet Volume 10.1 fL (9.4-12.3); Monocytes Absolute Auto 1.3 X10*3/uL (0.1-1.2); Monocytes Percent Auto 16.7 % (2-11); Neutrophils Absolute Auto 5.6 x10*3/uL (2.0-8.3); Neutrophils Percent Auto 75.2 % (45-73); Platelet Count 125 X10*3/uL (160-400); Red Blood Count 3.18 X10*6/uL (4.20-5.50); Red Cell Distribution Width 22.5 % (11.0-16.0); White Blood Count 7.5 X10*3/uL (4.8-10.8)
[2024-06-15 08:03] LABS: Alanine Aminotransferase 7 U/L (0-31); Albumin Level 2.9 g/dL (3.5-5.0); Alkaline Phosphatase 76 U/L (39-117); Aspartate Amino Transferase 19 U/L (5-31); Bilirubin Total 0.4 mg/dL (0.0-1.0); Blood Urea Nitrogen 9 mg/dL (9-16); Calcium 8.3 mg/dL (8.4-10.2); Creatinine Clr Calc Pharmacy 31.5; Estimated Glomerular Filt Rate 43; Glucose Random 139 mg/dL (60-115); Total Protein 5.9 g/dL (6.5-8.0)
[2024-06-15 08:17] LABS: Anion Gap 13 (12-20); Carbon Dioxide 21 mmol/L (22-29); Chloride 108 mmol/L (96-108); Potassium 4.1 mmol/L (3.3-5.1); Sodium 138 mmol/L (135-145)
[2024-06-15] MEDS: QUEtiapine Fumarate 25 MG TABLET PO (08:17)
[2024-06-15] MEDS: HYDROmorphone HCl 0.5 MG/0.5 ML SYRINGE IVPUSH ×2 (08:17→12:59)
--- NOTE | 2024-06-15 08:25 | P.PNGS_ITS ---
Subjective Subjective Date of Service: 06/15/24 Interval history: C/o incisional pain that is somewhat relieved but remains unable to sit up on her own. Denies nausea. Denies flatus. Physical Exam 2 Vital Signs: Vital Signs: Last Vital Signs Temp 97.4 F 06/15/24 07:38 Pulse 85 06/15/24 07:38 Resp 18 06/15/24 07:38 BP 109/50 L 06/15/24 07:38 Pulse Ox 100 06/15/24 07:38 O2 Del Method Room Air 06/15/24 07:38 O2 Flow Rate 3 06/14/24 18:01 BMI result Body Mass Index 21.7 Const: General: comfortable, no acute distress and alert O rientation/consciousness: patient oriented x3 Resp: Effort & Inspection: normal respiratory effort GI: Other: subcostal dressing clean and intact RNAJEET drain serosanguineous Inspection: Yes distended (moderate, softly ) Palpation (GI): Soft to palpation, Tenderness to palpation present (GI) (mild incisional) and no guarding Skin: General skin exam: no rashes or lesions noted and no jaundice Neuro: General: patient oriented x3 and moves all extremities Objective Data Active Medications Acetaminophen (Acetaminophen 325 Mg Tablet) 650 mg PO Q6H PRN PRN Reason: Pain, Mild (Pain Scale 1-3), fever or headache Last Admin: 06/13/24 07:52 Dose: 650 mg Documented By: KOURTNEY Calcium Carbonate (Calcium Carbonate 750 Mg Tab.Chew) 750 mg PO Q4H PRN PRN Reason: Heartburn Gabapentin (Gabapentin 300 Mg Capsule) 300 mg PO BEDTIME [facility] Last Admin: 06/14/24 19:43 Dose: 300 mg Documented By: RIGOBERTO Hydromorphone HCl (Hydromorphone Hcl 0.5 Mg/0.5 Ml Syringe) 0.5 mg IVPUSH Q4H PRN; Protocol PRN Reason: Pain, Severe (Pain Scale 7-10) Last Admin: 06/15/24 08:17 Dose: 0.5 mg Documented By: RADHA Dextrose/Lactated Ringer's (D5lr) 1,000 mls @ 100 mls/hr IVCONT .Q10H [facility] Last Admin: 06/15/24 05:14 Dose: 100 mls/hr Documented By: RIGOBERTO Piperacillin Sod/Tazobactam (Sod 3.375 gm/ Sodium Chloride) 50 mls @ 100 mls/hr IV Q6H [facility] Last Admin: 06/15/24 07:32 Dose: 100 mls/hr Documented By: RADHA Lidocaine (Lidocaine 5 % Ointment 35 Gm) 1 appl TOPICAL Q6H PRN; Protocol PRN Reason: right flank pain Magnesium Hydroxide (Milk Of Magnesia 30 Ml Oral.Susp) 30 ml PO DAILY PRN PRN Reason: Constipation Melatonin (Melatonin 3 Mg Tablet) 6 mg PO BEDTIME PRN PRN Reason: Insomnia Metoprolol Tartrate (Metoprolol Tartrate 12.5 Mg Halftab) 12.5 mg PO BID [facility]; Protocol Last Admin: 06/14/24 19:43 Dose: 12.5 mg Documented By: RIGOBERTO Ondansetron HCl (Ondansetron Hcl 4 Mg/2 Ml Vial) 4 mg IVPUSH QID PRN PRN Reason: Nausea Pantoprazole Sodium (Pantoprazole Sodium 40 Mg/10 Ml Vial) 40 mg IVPUSH BID@0630,1630 [facility] Last Admin: 06/15/24 05:15 Dose: 40 mg Documented By: RIGOBERTO Quetiapine Fumarate (Quetiapine Fumarate 25 Mg Tablet) 25 mg PO DAILY [facility] Last Admin: 06/15/24 08:17 Dose: 25 mg Documented By: RADHA Sodium Chloride (0.9 % Sodium Chloride Flush 3 Ml Syringe) 3 ml IVFLUSH QSHIFT [facility] Last Admin: 06/15/24 07:28 Dose: 3 ml Documented By: RADHA Labs 06/15/24 06:55 06/15/24 06:55 Labs: Laboratory Results - last 24 hr 06/10/24 06/14/24 06/15/24 14:09 10:51 06:55 MCV 89.3 MCH 27.4 MCHC 30.6 L RDW 22.5 H Plt Count 125 L MPV 10.1 Immature Gran % (Auto) 0.5 H Neut % (Auto) 75.2 H Lymph % (Auto) 7.3 L Webster % (Auto) 16.7 H Eos % (Auto) 0.0 Baso % (Auto) 0.3 Lymph # (Auto) 0.6 L Webster # (Auto) 1.3 H Eos # (Auto) 0.0 Baso # (Auto) 0.0 Abs Immat Gran (auto) 0.04 H Absolute Neuts (auto) 5.6 Absolute Nucleated RBC 0.000 Nucleated RBC % (auto) 0.0 Anion Gap 13 Estim Creat Clear Calc 31.5 Estimated GFR 43 Random Glucose 139 H Calcium 8.3 L D Total Bilirubin 0.4 AST 19 ALT 7 Alkaline Phosphatase 76 Total Protein 5.9 L Albumin 2.9 L Blood Type O Positive O Positive Antibody Screen POSITIVE POSITIVE Antibody Identification Inconclusive Inconclusive Crossmatch (AHG) See Detail See Detail Procedures Date of Service Date of Service: 06/15/24 Progress Note: A&P Assessment and plan (1) Duodenal perforation: Status: Acute Plan POD #1 s/p Exploratory laparotomy, removal of duodenal polyp, repair of duodenal perforation with omental patch. Doing fairly well post op but difficulty with pain control. VSS. Abd benign with appropriate post op tenderness, moderately distended, dressing clean and intact. RANJEET drain with nonbilious output. Analgesics adjusted to dilaudid instead of morphine, added ofirmev. If no improvement, can consider CLEARANCE CUTTER. Cont IV zosyn, RANJEET drain for now. No cholecystectomy carried out at the time of surgery as gallbladder was nondilated, soft with no evidence of acute cholecystitis. This can be performed down the line once recovered if needed. Further management of CBD stones as per GI. Time Spent With Patient Time: Total time managing care of this patient today ____ minutes. Quality Stroke Does the patient have a stroke diagnosis?: No VTE Prior VTE?: No VTE Risk Level:: Medical - moderate - high VTE Device Contraindication: N/A - Device Ordered VTE Drug Contraindication: Treatment Not Indicated
--- NOTE | 2024-06-15 08:36 | HO.POSTANES ---
Post Anesthesia Evaluation Post Anesthesia Evaluation Date of Service: 06/15/24 Vital Signs: Vital Signs Temp Pulse Resp BP Pulse Ox O2 Del Method 06/15/24 07:38 97.4 F 85 18 109/50 L 100 Room Air 06/15/24 05:44 18 06/15/24 03:21 97.2 F 87 20 118/59 L 100 Room Air 06/15/24 00:15 16 06/15/24 00:00 97.7 F 94 20 149/74 H 99 Room Air 06/14/24 21:59 97.7 F 100 18 151/83 H 100 Room Air Anesthesia: General LMA Mental Status: Awake Pain Control: Satisfactory Nausea/Vomiting: None Hydration: Adequate Anesthesia-Related Issues: No Anes. Related Issues
--- NOTE | 2024-06-15 08:42 | HO.POSTANES ---
Post Anesthesia Evaluation Post Anesthesia Evaluation Date of Service: 06/15/24 Vital Signs: Vital Signs Temp Pulse Resp BP Pulse Ox O2 Del Method 06/15/24 07:38 97.4 F 85 18 109/50 L 100 Room Air 06/15/24 05:44 18 06/15/24 03:21 97.2 F 87 20 118/59 L 100 Room Air 06/15/24 00:15 16 06/15/24 00:00 97.7 F 94 20 149/74 H 99 Room Air 06/14/24 21:59 97.7 F 100 18 151/83 H 100 Room Air Anesthesia: General Mental Status: Sedated Pain Control: Satisfactory Nausea/Vomiting: None Hydration: Adequate Anesthesia-Related Issues: No Anes. Related Issues Comments: following procedure, due to misplaced trach. tube, pt severely desaturated and hemodynamically collapsed in the OR, code was called, resuscitated, trach tube was repositioned. He is on low dose Propofol drip, afib at the rate of 130s, on ventilator.
[2024-06-15] MEDS: Acetaminophen 1,000 MG/100 ML PIGGYBACK 400 MG IV ×3 (11:08→22:08)
--- NOTE | 2024-06-15 13:57 | MHC.CM.PN ---
Per rounds, pt is not yet ready for DC. She is S/P exploratory laparotomy. CM to follow for DC needs.
--- NOTE | 2024-06-15 14:30 | P.PNIM_ITS ---
Subjective Subjective Date of Service: 06/15/24 Interval History: Being followed for anemia, status post upper endoscopy/colonoscopy, noted to have duodenal perforation status post surgery on 06/14. Complaining of abdominal pain at site of incision, denies fever, no chills, NPO receiving IV fluids. Review of Systems All other system reviewed and are negative. Physical Exam 2 Vital Signs: Vital Signs: Last Vital Signs Temp 97.2 F 06/15/24 12:00 Pulse 93 06/15/24 12:00 Resp 18 06/15/24 12:21 BP 114/60 06/15/24 12:00 Pulse Ox 97 06/15/24 12:00 O2 Del Method Room Air 06/15/24 12:00 O2 Flow Rate 3 06/14/24 18:01 BMI result Body Mass Index 21.7 Const: Other: General awake alert, no acute distress. Neck no JVD. CVS regular rate rhythm, Respiratory lungs clear to auscultation, no respiratory distress, no wheeze, no rhonchi. Gastrointestinal abdomen soft, tenderness at site of incision, KIRK drain with serosanguineous drainage, no guarding , no rigidity. Extremities no edema. Neuro non focal Skin no rash Appropriate affect Objective Data Active Medications Calcium Carbonate (Calcium Carbonate 750 Mg Tab.Chew) 750 mg PO Q4H PRN PRN Reason: Heartburn Gabapentin (Gabapentin 300 Mg Capsule) 300 mg PO BEDTIME [facility] Last Admin: 06/14/24 19:43 Dose: 300 mg Documented By: RIGOBERTO Hydromorphone HCl (Hydromorphone Hcl 0.5 Mg/0.5 Ml Syringe) 0.5 mg IVPUSH Q3H PRN; Protocol PRN Reason: Pain, Severe (Pain Scale 7-10) Last Admin: 06/15/24 12:59 Dose: 0.5 mg Documented By: RADHA Dextrose/Lactated Ringer's (D5lr) 1,000 mls @ 100 mls/hr IVCONT .Q10H [facility] Last Admin: 06/15/24 05:14 Dose: 100 mls/hr Documented By: RIGOBEROT Piperacillin Sod/Tazobactam (Sod 3.375 gm/ Sodium Chloride) 50 mls @ 100 mls/hr IV Q6H [facility] Last Admin: 06/15/24 13:00 Dose: 100 mls/hr Documented By: RADHA Acetaminophen (Ofirmev) 1,000 mg in 100 mls @ 400 mls/hr IV Q6H [facility] Last Infusion: 06/15/24 11:30 Dose: Infused Documented By: RADHA Lidocaine (Lidocaine 5 % Ointment 35 Gm) 1 appl TOPICAL Q6H PRN; Protocol PRN Reason: right flank pain Magnesium Hydroxide (Milk Of Magnesia 30 Ml Oral.Susp) 30 ml PO DAILY PRN PRN Reason: Constipation Melatonin (Melatonin 3 Mg Tablet) 6 mg PO BEDTIME PRN PRN Reason: Insomnia Metoprolol Tartrate (Metoprolol Tartrate 12.5 Mg Halftab) 12.5 mg PO BID [facility]; Protocol Last Admin: 06/15/24 08:26 Dose: Not Given Documented By: RADHA Non-Admin Reason: per md order Ondansetron HCl (Ondansetron Hcl 4 Mg/2 Ml Vial) 4 mg IVPUSH QID PRN PRN Reason: Nausea Pantoprazole Sodium (Pantoprazole Sodium 40 Mg/10 Ml Vial) 40 mg IVPUSH BID@0630,1630 [facility] Last Admin: 06/15/24 05:15 Dose: 40 mg Documented By: RIGOBERTO Quetiapine Fumarate (Quetiapine Fumarate 25 Mg Tablet) 25 mg PO DAILY [facility] Last Admin: 06/15/24 08:17 Dose: 25 mg Documented By: RADHA Sodium Chloride (0.9 % Sodium Chloride Flush 3 Ml Syringe) 3 ml IVFLUSH QSHIFT [facility] Last Admin: 06/15/24 07:28 Dose: 3 ml Documented By: RADHA Labs 06/15/24 06:55 06/15/24 06:55 Labs: Laboratory Results - last 24 hr 06/15/24 06:55 MCV 89.3 MCH 27.4 MCHC 30.6 L RDW 22.5 H Plt Count 125 L MPV 10.1 Immature Gran % (Auto) 0.5 H Neut % (Auto) 75.2 H Lymph % (Auto) 7.3 L [place] % (Auto) 16.7 H Eos % (Auto) 0.0 Baso % (Auto) 0.3 Lymph # (Auto) 0.6 L [place] # (Auto) 1.3 H Eos # (Auto) 0.0 Baso # (Auto) 0.0 Abs Immat Gran (auto) 0.04 H Absolute Neuts (auto) 5.6 Absolute Nucleated RBC 0.000 Nucleated RBC % (auto) 0.0 Anion Gap 13 Estim Creat Clear Calc 31.5 Estimated GFR 43 Random Glucose 139 H Calcium 8.3 L D Total Bilirubin 0.4 AST 19 ALT 7 Alkaline Phosphatase 76 Total Protein 5.9 L Albumin 2.9 L Assessment and Plan (1) Choledocholithiasis: Status: Acute (2) Duodenal perforation: Status: Acute (3) Acute GI bleeding: Status: Acute Plan Abfmgi-qfx-lyea-old female with pertinent history of mood disorder, history of PE on Xarelto, Alzheimer's dementia, gastroesophageal reflux disease, recurrent UTI, history of breast cancer (2006) in remission, peripheral neuropathy admitted for acute gi bleed with acute symptomatic blood loss anemia # s/p Exploratory laparotomy, removal of duodenal polyp, repair of duodenal perforation with omental patch. POD #1 Abdominal pain at incisional site, will place on IV Dilaudid 0.5 mg, continue Tylenol, IV Zosyn day 2,kirk drain with bilious secretion NPO, further treatment care as per General surgery . cholecystectomy not done at the time of surgery as gallbladder was nondilated, with no evidence of acute cholecystitis. Further management of CBD stones as per GI. Hold Xarelto for 2 weeks #acute gi bleed with acute symptomatic blood loss anemia (near syncope) -no recurrent episodes of GI bleed, status post 1 unit of packed RBC hematocrit improved and remained stable -hold xarelto, continue iv ppi -status post upper endoscopy that showed mild antral gastritis, hiatal hernia, colonoscopy showed 4 mm polyp biopsied and removed from cecum, sigmoid diverticulosis, internal and external hemorrhoids, no AVMs no bleeding Will follow pathology of the polyp, outpatient GI follow-up # history of PE -hold Xarelto due to above # abnormal CT finding-question choledocholithiasis - MRCP showed choledocholithiasis with dilatation with the distal common bile duct, cholelithiasis, normal liver enzymes. Outpatient follow-up for choledocholithiasis. # Alzheimer's dementia with mood disorder -continue quetiapine # GERD -on PPI # unspecified peripheral neuropathy -continue gabapentin DVT prophylaxis-compression due to GI bleed Full code Patient requires continued inpatient hospitalization for management of postoperative care for duodenal perforation, IV analgesics, NPO and IV fluid Quality Stroke Does the patient have a stroke diagnosis?: No VTE Prior VTE?: No VTE Risk Level:: Medical - moderate - high VTE Device Contraindication: N/A - Device Ordered VTE Drug Contraindication: Treatment Not Indicated
[2024-06-15] MEDS: Gabapentin 300 MG CAPSULE PO (22:09)
[2024-06-15] MEDS: Metoprolol Tartrate 12.5 MG HALFTAB PO (22:10)
--- NOTE | 2024-06-15 23:29 | P.PNGI_ITS ---
Subjective Subjective Date of Service: 06/15/24 Interval History: Patient seen at 7:30PM C/O incision discomfort Denies any bleeding or black stools Critical Care Time (minutes): 0 Physical Exam 2 Vital Signs: Vital Signs: Last Vital Signs Temp 97.3 F 06/15/24 20:00 Pulse 99 06/15/24 20:00 Resp 18 06/15/24 20:00 BP 101/59 L 06/15/24 20:00 Pulse Ox 97 06/15/24 20:00 O2 Del Method Room Air 06/15/24 20:00 O2 Flow Rate 3 06/14/24 18:01 BMI result Body Mass Index 21.7 Const: General: cooperative, healthy appearing, comfortable, no acute distress, well developed, alert and awake Eyes: Sclerae: sclerae normal GI: Other: Incisonal tenderness, Nondistended,no mass Objective Data Labs 06/15/24 06:55 06/15/24 06:55 Labs: Laboratory Results - last 24 hr 06/15/24 06:55 WBC 7.5 RBC 3.18 L Hgb 8.7 L Hct 28.4 L MCV 89.3 MCH 27.4 MCHC 30.6 L RDW 22.5 H Plt Count 125 L MPV 10.1 Immature Gran % (Auto) 0.5 H Neut % (Auto) 75.2 H Lymph % (Auto) 7.3 L [place] % (Auto) 16.7 H Eos % (Auto) 0.0 Baso % (Auto) 0.3 Lymph # (Auto) 0.6 L [place] # (Auto) 1.3 H Eos # (Auto) 0.0 Baso # (Auto) 0.0 Abs Immat Gran (auto) 0.04 H Absolute Neuts (auto) 5.6 Absolute Nucleated RBC 0.000 Nucleated RBC % (auto) 0.0 Sodium 138 Potassium 4.1 Chloride 108 Carbon Dioxide 21 L Anion Gap 13 BUN 9 Creatinine 1.21 Estim Creat Clear Calc 31.5 Estimated GFR 43 Random Glucose 139 H Calcium 8.3 L D Total Bilirubin 0.4 AST 19 ALT 7 Alkaline Phosphatase 76 Total Protein 5.9 L Albumin 2.9 L Microbiology Microbiology Results: Microbiology 06/10/24 17:02 Urine clean catch - Clean Catch Midstream Urine Culture - Final Escherichia coli Procedures Date of Service Date of Service: 08/23/24 Progress Note: A&P Assessment and plan (1) Choledocholithiasis: Status: Acute (2) GIB (gastrointestinal bleeding): Status: Resolved Assessment and Plan: Imp/Plan: 1. GI Bleed-currently stable. We will need to see if having removed the upper and lower GI tract polyps will help to resolve her anemai in the future. F/U CBC. Continue omeprazole. Continue to hold Xarelto 2. CBD stones-I advised her that she may need outpatient ERCP. At this point she is asymptomatic. I will plan to see her in my office to review things in that regard. She seemed ford understand wnd was comfortable with this plan. Thanks Time Spent With Patient Time: Total time managing care of this patient today ____ minutes. Quality Stroke Does the patient have a stroke diagnosis?: No VTE Prior VTE?: No VTE Risk Level:: Medical - moderate - high VTE Device Contraindication: N/A - Device Ordered VTE Drug Contraindication: Treatment Not Indicated
[2024-06-16] VITALS (7 sets, daily range): BP systolic 103–149; BP diastolic 52–73; PULSE 78–103; RESP 18; TEMP 36.2–37.4; O2SAT 95–100
[2024-06-16] MEDS: Dextrose 5 % and Lactated Ring 1,000 ML 100 ML IVCONT ×2 (02:50→11:31)
[2024-06-16] MEDS: Piperacillin Sodium/Tazobactam 3.375 GM in 0.9 % Sodium Chloride 50 ML IV ×4 (03:35→21:01)
[2024-06-16] MEDS: Acetaminophen 1,000 MG/100 ML PIGGYBACK 400 MG IV ×3 (04:35→21:24)
[2024-06-16 06:31] LABS: Hematocrit 26.7 % (37.0-47.0); Hemoglobin 7.9 g/dl (12.0-16.0); Mean Corpuscular HGB Conc 29.6 g/dl (31.0-35.0); Mean Corpuscular Hemoglobin 27.2 pg (27.0-33.0); Mean Corpuscular Volume 92.1 fL (80.0-98.0); PLT CLUMP 1; Red Cell Distribution Width 22.8 % (11.0-16.0)
[2024-06-16 06:35] LABS: Platelet Count 82 X10*3/uL (160-400); White Blood Count 6.3 X10*3/uL (4.8-10.8)
[2024-06-16] MEDS: Pantoprazole Sodium 40 MG/10 ML VIAL IVPUSH ×2 (06:41→17:58)
[2024-06-16 07:00] LABS: Anion Gap 13 (12-20); Blood Urea Nitrogen 8 mg/dL (9-16); Carbon Dioxide 20 mmol/L (22-29); Chloride 109 mmol/L (96-108); Creatinine Clr Calc Pharmacy 28.6; Estimated Glomerular Filt Rate 38; Glucose Random 96 mg/dL (60-115); Sodium 138 mmol/L (135-145)
[2024-06-16] MEDS: 0.9 % Sodium Chloride Flush 3 ML SYRINGE IVFLUSH ×2 (09:52→21:02)
[2024-06-16] MEDS: HYDROmorphone HCl 0.5 MG/0.5 ML SYRINGE IVPUSH (09:56)
[2024-06-16] MEDS: QUEtiapine Fumarate 25 MG TABLET PO (10:03)
--- NOTE | 2024-06-16 12:45 | HO.PM.IMPN ---
Subjective Subjective Date of Service: 06/16/24 Interval History: Being followed for duodenal perforation status post surgery. Feeling better this morning less pain passing flatus no fevers, no chills, no nausea, no vomiting, no other acute events overnight. Review of Systems All other system reviewed and negative Physical Exam Vital Signs: Vital Signs: Last Vital Signs Temp 97.9 F 06/16/24 12:00 Pulse 103 H 06/16/24 12:00 Resp 18 06/16/24 12:00 BP 125/58 L 06/16/24 12:00 Pulse Ox 95 06/16/24 12:00 O2 Del Method Room Air 06/16/24 12:00 O2 Flow Rate 3 06/14/24 18:01 BMI result Body Mass Index 21.7 Const: Other: General awake alert, no acute distress. Neck no JVD. CVS regular rate rhythm, Respiratory lungs clear to auscultation, no respiratory distress, no wheeze, no rhonchi. Gastrointestinal abdomen soft, KIRK drain with serosanguineous drainage, normal bowel sounds, mild tenderness at incision site, no guarding , no rigidity. Extremities no edema. Neuro non focal Skin no rash Appropriate affect Objective Data Active Medications Calcium Carbonate (Calcium Carbonate 750 Mg Tab.Chew) 750 mg PO Q4H PRN PRN Reason: Heartburn Gabapentin (Gabapentin 300 Mg Capsule) 300 mg PO BEDTIME [facility] Last Admin: 06/15/24 22:09 Dose: 300 mg Documented By: ETHEL Hydromorphone HCl (Hydromorphone Hcl 0.5 Mg/0.5 Ml Syringe) 0.5 mg IVPUSH Q3H PRN; Protocol PRN Reason: Pain, Severe (Pain Scale 7-10) Last Admin: 06/16/24 09:56 Dose: 0.5 mg Documented By: CHRIS Dextrose/Lactated Ringer's (D5lr) 1,000 mls @ 100 mls/hr IVCONT .Q10H [facility] Last Admin: 06/16/24 11:31 Dose: 100 mls/hr Documented By: LETA Piperacillin Sod/Tazobactam (Sod 3.375 gm/ Sodium Chloride) 50 mls @ 100 mls/hr IV Q6H [facility] Last Infusion: 06/16/24 11:32 Dose: Infused Documented By: LETA Acetaminophen (Ofirmev) 1,000 mg in 100 mls @ 400 mls/hr IV Q6H [facility] Last Infusion: 06/16/24 11:32 Dose: Infused Documented By: LETA Lidocaine (Lidocaine 5 % Ointment 35 Gm) 1 appl TOPICAL Q6H PRN; Protocol PRN Reason: right flank pain Magnesium Hydroxide (Milk Of Magnesia 30 Ml Oral.Susp) 30 ml PO DAILY PRN PRN Reason: Constipation Melatonin (Melatonin 3 Mg Tablet) 6 mg PO BEDTIME PRN PRN Reason: Insomnia Ondansetron HCl (Ondansetron Hcl 4 Mg/2 Ml Vial) 4 mg IVPUSH QID PRN PRN Reason: Nausea Pantoprazole Sodium (Pantoprazole Sodium 40 Mg/10 Ml Vial) 40 mg IVPUSH BID@0630,1630 [facility] Last Admin: 06/16/24 06:41 Dose: 40 mg Documented By: ETHEL Quetiapine Fumarate (Quetiapine Fumarate 25 Mg Tablet) 25 mg PO DAILY [facility] Last Admin: 06/16/24 10:03 Dose: 25 mg Documented By: CHRIS Sodium Chloride (0.9 % Sodium Chloride Flush 3 Ml Syringe) 3 ml IVFLUSH QSHIFT [facility] Last Admin: 06/16/24 09:52 Dose: 3 ml Documented By: CHRIS Labs 06/16/24 05:55 06/16/24 05:55 Labs: Laboratory Results - last 24 hr 06/16/24 05:55 MCV 92.1 MCH 27.2 MCHC 29.6 L RDW 22.8 H Plt Count 82 L D MPV Not Reportable Absolute Nucleated RBC 0.000 Nucleated RBC % (auto) 0.0 Anion Gap 13 Estim Creat Clear Calc 28.6 Estimated GFR 38 Random Glucose 96 Calcium 8.0 L Assessment and Plan (1) Duodenal perforation: Status: Acute (2) Choledocholithiasis: Status: Acute Plan Qissgd-tuh-yphi-old female with pertinent history of mood disorder, history of PE on Xarelto, Alzheimer's dementia, gastroesophageal reflux disease, recurrent UTI, history of breast cancer (2006) in remission, peripheral neuropathy admitted for acute gi bleed with acute symptomatic blood loss anemia # s/p Exploratory laparotomy, removal of duodenal polyp, repair of duodenal perforation with omental patch. POD #2 Good pain control, transitioned to IV morphine, continue iv Tylenol scheduled, IV Zosyn day 3, renally dosed, kirk drain with is can not drainage NPO, on IV fluid further treatment care as per General surgery . cholecystectomy not done at the time of surgery as gallbladder was nondilated, with no evidence of acute cholecystitis. Further management of CBD stones as per GI. Hold Xarelto for 2 weeks #acute gi bleed with acute symptomatic blood loss anemia (near syncope) -no recurrent episodes of GI bleed, status post 1 unit of packed RBC , hematocrit dropped 26.7, likely dilutional -hold xarelto, on iv ppi -status post upper endoscopy that showed mild antral gastritis, hiatal hernia, colonoscopy showed 4 mm polyp biopsied and removed from cecum, sigmoid diverticulosis, internal and external hemorrhoids, no AVMs no bleeding Will follow pathology of the polyp, outpatient GI follow-up # hypertension soft BP hold metoprolol # history of PE -hold Xarelto due to above # abnormal CT finding-question choledocholithiasis - MRCP showed choledocholithiasis with dilatation with the distal common bile duct, cholelithiasis, normal liver enzymes. Outpatient follow-up for choledocholithiasis. # Alzheimer's dementia with mood disorder -continue quetiapine # GERD -on PPI # unspecified peripheral neuropathy -continue gabapentin DVT prophylaxis-compression due to GI bleed Full code Patient requires continued inpatient hospitalization for management of postoperative care for duodenal perforation, IV analgesics, NPO and IV fluid Quality Stroke Does the patient have a stroke diagnosis?: No VTE Prior VTE?: No VTE Risk Level:: Medical - moderate - high VTE Device Contraindication: N/A - Device Ordered VTE Drug Contraindication: Treatment Not Indicated
--- NOTE | 2024-06-16 14:30 | PM.PNGS ---
Subjective Subjective Date of Service: 06/16/24 Interval history: Patient complaining of incisional discomfort but otherwise uneventful evening. NPO at present. RANJEET drain with serous output. Incision clean dry and intact Physical Exam Vital Signs: Vital Signs: Last Vital Signs Temp 97.9 F 06/16/24 12:00 Pulse 103 H 06/16/24 12:00 Resp 18 06/16/24 12:00 BP 125/58 L 06/16/24 12:00 Pulse Ox 95 06/16/24 12:00 O2 Del Method Room Air 06/16/24 12:00 O2 Flow Rate 3 06/14/24 18:01 BMI result Body Mass Index 21.7 GI: Other: Abdomen is soft. RANJEET serous output. Incision clean dry and intact dressing Objective Data Active Medications Calcium Carbonate (Calcium Carbonate 750 Mg Tab.Chew) 750 mg PO Q4H PRN PRN Reason: Heartburn Gabapentin (Gabapentin 300 Mg Capsule) 300 mg PO BEDTIME [facility] Last Admin: 06/15/24 22:09 Dose: 300 mg Documented By: EHTEL Dextrose/Lactated Ringer's (D5lr) 1,000 mls @ 100 mls/hr IVCONT .Q10H [facility] Last Admin: 06/16/24 11:31 Dose: 100 mls/hr Documented By: LETA Piperacillin Sod/Tazobactam (Sod 3.375 gm/ Sodium Chloride) 50 mls @ 100 mls/hr IV Q6H [facility] Last Admin: 06/16/24 14:26 Dose: 100 mls/hr Documented By: PODMORP Acetaminophen (Ofirmev) 1,000 mg in 100 mls @ 400 mls/hr IV Q6H [facility] Last Infusion: 06/16/24 11:32 Dose: Infused Documented By: LETA Lidocaine (Lidocaine 5 % Ointment 35 Gm) 1 appl TOPICAL Q6H PRN; Protocol PRN Reason: right flank pain Magnesium Hydroxide (Milk Of Magnesia 30 Ml Oral.Susp) 30 ml PO DAILY PRN PRN Reason: Constipation Melatonin (Melatonin 3 Mg Tablet) 6 mg PO BEDTIME PRN PRN Reason: Insomnia Morphine Sulfate (Morphine Sulfate 4 Mg/Ml Cartridge) 4 mg IVPUSH Q4H PRN; Protocol PRN Reason: Pain, Severe (Pain Scale 7-10) Ondansetron HCl (Ondansetron Hcl 4 Mg/2 Ml Vial) 4 mg IVPUSH QID PRN PRN Reason: Nausea Pantoprazole Sodium (Pantoprazole Sodium 40 Mg/10 Ml Vial) 40 mg IVPUSH BID@0630,1630 [facility] Last Admin: 06/16/24 06:41 Dose: 40 mg Documented By: ETHEL Quetiapine Fumarate (Quetiapine Fumarate 25 Mg Tablet) 25 mg PO DAILY [facility] Last Admin: 06/16/24 10:03 Dose: 25 mg Documented By: CHRIS Sodium Chloride (0.9 % Sodium Chloride Flush 3 Ml Syringe) 3 ml IVFLUSH QSHIFT [facility] Last Admin: 06/16/24 09:52 Dose: 3 ml Documented By: CHRIS Labs 06/16/24 05:55 06/16/24 05:55 Labs: Laboratory Results - last 24 hr 06/16/24 05:55 MCV 92.1 MCH 27.2 MCHC 29.6 L RDW 22.8 H Plt Count 82 L D MPV Not Reportable Absolute Nucleated RBC 0.000 Nucleated RBC % (auto) 0.0 Anion Gap 13 Estim Creat Clear Calc 28.6 Estimated GFR 38 Random Glucose 96 Calcium 8.0 L Procedures Date of Service Date of Service: 06/16/24 Progress Note: A&P Assessment and plan (1) Postop check: Status: Acute (2) Duodenal perforation: Status: Acute Plan Encourage out of bed, incentive spirometry, ice pack to wound, ice chips for now. To keep RANJEET drain in Time Spent With Patient Time: Total time managing care of this patient today ____ minutes. Quality Stroke Does the patient have a stroke diagnosis?: No VTE Prior VTE?: No VTE Risk Level:: Medical - moderate - high VTE Device Contraindication: N/A - Device Ordered VTE Drug Contraindication: Treatment Not Indicated
[2024-06-16] MEDS: Gabapentin 300 MG CAPSULE PO (21:02)
[2024-06-16] MEDS: Morphine Sulfate 4 MG/ML CARTRIDGE IVPUSH (21:45)
[2024-06-17] VITALS (12 sets, daily range): BP systolic 140–164; BP diastolic 66–92; PULSE 60–107; RESP 16–20; TEMP 35.8–36.8; O2SAT 95–97
[2024-06-17] MEDS: Piperacillin Sodium/Tazobactam 3.375 GM in 0.9 % Sodium Chloride 50 ML IV ×3 (02:13→13:46)
[2024-06-17] MEDS: Acetaminophen 1,000 MG/100 ML PIGGYBACK 400 MG IV ×4 (03:57→21:23)
[2024-06-17] MEDS: Morphine Sulfate 4 MG/ML CARTRIDGE IVPUSH ×2 (04:11→17:41)
[2024-06-17] MEDS: Pantoprazole Sodium 40 MG/10 ML VIAL IVPUSH ×2 (05:20→17:10)
[2024-06-17 06:30] LABS: Hematocrit 25.6 % (37.0-47.0); Hemoglobin 7.6 g/dl (12.0-16.0); Mean Corpuscular HGB Conc 29.7 g/dl (31.0-35.0); Mean Corpuscular Hemoglobin 26.9 pg (27.0-33.0); Mean Corpuscular Volume 90.5 fL (80.0-98.0); Mean Platelet Volume 10.2 fL (9.4-12.3); Platelet Count 125 X10*3/uL (160-400); Red Blood Count 2.83 X10*6/uL (4.20-5.50); Red Cell Distribution Width 22.5 % (11.0-16.0); White Blood Count 4.5 X10*3/uL (4.8-10.8)
[2024-06-17 06:49] LABS: Anion Gap 9 (12-20); Blood Urea Nitrogen 8 mg/dL (9-16); Calcium 8.2 mg/dL (8.4-10.2); Carbon Dioxide 24 mmol/L (22-29); Chloride 110 mmol/L (96-108); Creatinine Clr Calc Pharmacy 36.6; Estimated Glomerular Filt Rate 51; Glucose Random 88 mg/dL (60-115); Potassium 3.3 mmol/L (3.3-5.1); Sodium 140 mmol/L (135-145)
[2024-06-17] MEDS: QUEtiapine Fumarate 25 MG TABLET PO (07:51)
[2024-06-17 08:39] LABS: Albumin Level 2.6 g/dL (3.5-5.0); Magnesium 1.7 mg/dL (1.6-2.6); Phosphorus 2.8 mg/dL (2.7-4.5)
--- NOTE | 2024-06-17 09:26 | MHC.CLN ---
NUTRITION ALERTED BY PHARMACY THAT PATIENT TO START PPN TODAY. RECOMMEND START PPN AT 30 ML PER HOUR TO PROVIDE 31 G PROTEIN, 72 G DEXTROSE, 367 KCALS. REPLETE LYTES NEEDED. COMPLETE CLINICAL NUTRITION ASSESSMENT TO FOLLOW.
[2024-06-17] MEDS: 0.9 % Sodium Chloride Flush 3 ML SYRINGE IVFLUSH ×3 (09:46→21:28)
--- NOTE | 2024-06-17 13:19 | HO.PM.IMPN ---
Subjective Subjective Date of Service: 06/17/24 Interval History: Feels tired, pain at incision site worse with movement , taking ice chips, complaining of headache, no nausea, no vomiting, denies chest pain, no lightheadedness, no dizziness, no fevers, no chills no other acute events overnight oxygenation stable. Review of Systems All other system reviewed and are negative. Physical Exam Vital Signs: Vital Signs: Last Vital Signs Temp 98.2 F 06/17/24 11:51 Pulse 92 06/17/24 11:51 Resp 18 06/17/24 11:51 BP 140/68 H 06/17/24 11:51 Pulse Ox 95 06/17/24 11:51 O2 Del Method Room Air 06/17/24 11:51 O2 Flow Rate 3 06/14/24 18:01 BMI result Body Mass Index 21.7 Const: Other: General awake alert, no acute distress. Neck no JVD. CVS regular rate rhythm, Respiratory lungs clear to auscultation, no respiratory distress, no wheeze, no rhonchi. Gastrointestinal abdomen soft, KIRK drain with serosanguineous drainage, normal bowel sounds, tenderness at incision site, no guarding , no rigidity. Extremities no edema. Neuro non focal Skin no rash Appropriate affect Objective Data Active Medications Calcium Carbonate (Calcium Carbonate 750 Mg Tab.Chew) 750 mg PO Q4H PRN PRN Reason: Heartburn Gabapentin (Gabapentin 300 Mg Capsule) 300 mg PO BEDTIME [facility] Last Admin: 06/16/24 21:02 Dose: 300 mg Documented By: SUGAR Piperacillin Sod/Tazobactam (Sod 3.375 gm/ Sodium Chloride) 50 mls @ 100 mls/hr IV Q6H [facility] Last Infusion: 06/17/24 08:25 Dose: Infused Documented By: RADHA Acetaminophen (Ofirmev) 1,000 mg in 100 mls @ 400 mls/hr IV Q6H [facility] Last Infusion: 06/17/24 09:54 Dose: Infused Documented By: RADHA Nutrition (Parenteral) (Parenteral Nutrition) 720 mls @ 30 mls/hr IV .Q24H [facility]; Protocol Stop: 06/18/24 20:59 Lidocaine (Lidocaine 5 % Ointment 35 Gm) 1 appl TOPICAL Q6H PRN; Protocol PRN Reason: right flank pain Magnesium Hydroxide (Milk Of Magnesia 30 Ml Oral.Susp) 30 ml PO DAILY PRN PRN Reason: Constipation Melatonin (Melatonin 3 Mg Tablet) 6 mg PO BEDTIME PRN PRN Reason: Insomnia Morphine Sulfate (Morphine Sulfate 4 Mg/Ml Cartridge) 4 mg IVPUSH Q4H PRN; Protocol PRN Reason: Pain, Severe (Pain Scale 7-10) Last Admin: 06/17/24 04:11 Dose: 4 mg Documented By: SUGAR Ondansetron HCl (Ondansetron Hcl 4 Mg/2 Ml Vial) 4 mg IVPUSH QID PRN PRN Reason: Nausea Pantoprazole Sodium (Pantoprazole Sodium 40 Mg/10 Ml Vial) 40 mg IVPUSH BID@0630,1630 [facility] Last Admin: 06/17/24 05:20 Dose: 40 mg Documented By: SUGAR Pharmacy Consult (Consult Rx Parenteral Nutrition Ordering) 1 each MISCELLANE DAILY PRN PRN Reason: Consult order Quetiapine Fumarate (Quetiapine Fumarate 25 Mg Tablet) 25 mg PO DAILY [facility] Last Admin: 06/17/24 07:51 Dose: 25 mg Documented By: RADHA Sodium Chloride (0.9 % Sodium Chloride Flush 3 Ml Syringe) 3 ml IVFLUSH QSHIFT [facility] Last Admin: 06/17/24 09:46 Dose: 3 ml Documented By: RADHA Labs 06/17/24 06:01 06/17/24 06:01 Labs: Laboratory Results - last 24 hr 06/17/24 06:01 MCV 90.5 MCH 26.9 L MCHC 29.7 L RDW 22.5 H Plt Count 125 L D MPV 10.2 Absolute Nucleated RBC 0.000 Nucleated RBC % (auto) 0.0 Anion Gap 9 L Estim Creat Clear Calc 36.6 Estimated GFR 51 Random Glucose 88 Calcium 8.2 L Phosphorus 2.8 Magnesium 1.7 Albumin 2.6 L Assessment and Plan (1) Cholelithiasis: Status: Acute (2) Choledocholithiasis: Status: Acute (3) Acute GI bleeding: Status: Acute Plan Bilxyr-zdr-hjio-old female with pertinent history of mood disorder, history of PE on Xarelto, Alzheimer's dementia, gastroesophageal reflux disease, recurrent UTI, history of breast cancer (2006) in remission, peripheral neuropathy admitted for acute gi bleed with acute symptomatic blood loss anemia # s/p Exploratory laparotomy, removal of duodenal polyp, repair of duodenal perforation with omental patch. POD #2 Good pain control, transitioned to IV morphine, continue iv Tylenol scheduled, IV Zosyn day 3, renally dosed, kirk drain with is can not drainage NPO, cholecystectomy not done at the time of surgery as gallbladder was nondilated, with no evidence of acute cholecystitis. Further management of CBD stones as per GI. Hold Xarelto for 2 weeks Placed on PPN since albumin trending down, and DC fluids, watch closely for fluid overload #acute gi bleed with acute symptomatic blood loss anemia (near syncope) -no recurrent episodes of GI bleed, status post 1 unit of packed RBC , hematocrit dropped 25.6, likely dilutional and due to surgery -hold xarelto, on iv ppi -status post upper endoscopy that showed mild antral gastritis, hiatal hernia, colonoscopy showed 4 mm polyp biopsied and removed from cecum, sigmoid diverticulosis, internal and external hemorrhoids, no AVMs no bleeding Will follow pathology of the polyp, outpatient GI follow-up Will transfuse 1 unit of packed RBC follow CBC # hypertension resume metoprolol # history of PE -hold Xarelto due to above # abnormal CT finding-question choledocholithiasis - MRCP showed choledocholithiasis with dilatation with the distal common bile duct, cholelithiasis, normal liver enzymes. Outpatient follow-up for choledocholithiasis. # Alzheimer's dementia with mood disorder -continue quetiapine # GERD -on PPI # unspecified peripheral neuropathy -continue gabapentin DVT prophylaxis-compression due to GI bleed Full code Patient requires continued inpatient hospitalization for management of postoperative care for duodenal perforation, IV analgesics, NPO and IV PPN Quality Stroke Does the patient have a stroke diagnosis?: No VTE Prior VTE?: No VTE Risk Level:: Medical - moderate - high VTE Device Contraindication: N/A - Device Ordered VTE Drug Contraindication: Treatment Not Indicated
--- NOTE | 2024-06-17 14:48 | PM.PNGS ---
Subjective Subjective Date of Service: 06/17/24 Interval history: Patient had uneventful evening. She is little bit confused this early afternoon. Asking the same question several times. In the meantime, she has passed flatus she says. She is hungry. Physical Exam Vital Signs: Vital Signs: Last Vital Signs Temp 98.2 F 06/17/24 11:51 Pulse 92 06/17/24 11:51 Resp 18 06/17/24 11:51 BP 140/68 H 06/17/24 11:51 Pulse Ox 95 06/17/24 11:51 O2 Del Method Room Air 06/17/24 14:00 O2 Flow Rate 3 06/14/24 18:01 BMI result Body Mass Index 21.7 GI: Other: Abdomen is soft. Incision clean dry and intact. RANJEET drain serosanguineous new dressing applied. Objective Data Active Medications Calcium Carbonate (Calcium Carbonate 750 Mg Tab.Chew) 750 mg PO Q4H PRN PRN Reason: Heartburn Gabapentin (Gabapentin 300 Mg Capsule) 300 mg PO BEDTIME [facility] Last Admin: 06/16/24 21:02 Dose: 300 mg Documented By: SUGAR Piperacillin Sod/Tazobactam (Sod 3.375 gm/ Sodium Chloride) 50 mls @ 100 mls/hr IV Q6H [facility] Last Admin: 06/17/24 13:46 Dose: 100 mls/hr Documented By: RADHA Acetaminophen (Ofirmev) 1,000 mg in 100 mls @ 400 mls/hr IV Q6H [facility] Last Infusion: 06/17/24 09:54 Dose: Infused Documented By: RADHA Nutrition (Parenteral) (Parenteral Nutrition) 720 mls @ 30 mls/hr IV .Q24H [facility]; Protocol Stop: 06/18/24 20:59 Lidocaine (Lidocaine 5 % Ointment 35 Gm) 1 appl TOPICAL Q6H PRN; Protocol PRN Reason: right flank pain Magnesium Hydroxide (Milk Of Magnesia 30 Ml Oral.Susp) 30 ml PO DAILY PRN PRN Reason: Constipation Melatonin (Melatonin 3 Mg Tablet) 6 mg PO BEDTIME PRN PRN Reason: Insomnia Metoprolol Tartrate (Metoprolol Tartrate 12.5 Mg Halftab) 12.5 mg PO BID [facility]; Protocol Morphine Sulfate (Morphine Sulfate 4 Mg/Ml Cartridge) 4 mg IVPUSH Q4H PRN; Protocol PRN Reason: Pain, Severe (Pain Scale 7-10) Last Admin: 06/17/24 04:11 Dose: 4 mg Documented By: SUGAR Ondansetron HCl (Ondansetron Hcl 4 Mg/2 Ml Vial) 4 mg IVPUSH QID PRN PRN Reason: Nausea Pantoprazole Sodium (Pantoprazole Sodium 40 Mg/10 Ml Vial) 40 mg IVPUSH BID@0630,1630 [facility] Last Admin: 06/17/24 05:20 Dose: 40 mg Documented By: SUGAR Pharmacy Consult (Consult Rx Parenteral Nutrition Ordering) 1 each MISCELLANE DAILY PRN PRN Reason: Consult order Quetiapine Fumarate (Quetiapine Fumarate 25 Mg Tablet) 25 mg PO DAILY [facility] Last Admin: 06/17/24 07:51 Dose: 25 mg Documented By: RADHA Sodium Chloride (0.9 % Sodium Chloride Flush 3 Ml Syringe) 3 ml IVFLUSH QSHIFT [facility] Last Admin: 06/17/24 09:46 Dose: 3 ml Documented By: RADHA Labs 06/17/24 06:01 06/17/24 06:01 Labs: Laboratory Results - last 24 hr 06/17/24 06:01 MCV 90.5 MCH 26.9 L MCHC 29.7 L RDW 22.5 H Plt Count 125 L D MPV 10.2 Absolute Nucleated RBC 0.000 Nucleated RBC % (auto) 0.0 Anion Gap 9 L Estim Creat Clear Calc 36.6 Estimated GFR 51 Random Glucose 88 Calcium 8.2 L Phosphorus 2.8 Magnesium 1.7 Albumin 2.6 L Procedures Date of Service Date of Service: 06/17/24 Progress Note: A&P Assessment and plan (1) Duodenal perforation: Status: Acute (2) Postop check: Status: Acute Plan We will attempt clear liquids, encourage out of bed, incentive spirometry for now. Time Spent With Patient Time: Total time managing care of this patient today ____ minutes. Quality Stroke Does the patient have a stroke diagnosis?: No VTE Prior VTE?: No VTE Risk Level:: Medical - moderate - high VTE Device Contraindication: N/A - Device Ordered VTE Drug Contraindication: Treatment Not Indicated
[2024-06-17] MEDS: Metoprolol Tartrate 12.5 MG HALFTAB PO (19:58)
[2024-06-17] MEDS: Gabapentin 300 MG CAPSULE PO (19:58)
[2024-06-17] MEDS: Parenteral Nutrition 720 ML 30 ML IV (21:27)
[2024-06-18] VITALS (10 sets, daily range): BP systolic 141–168; BP diastolic 73–89; PULSE 81–113; RESP 14–20; TEMP 36.1–37.4; O2SAT 95–98; BMI 21.7
[2024-06-18] MEDS: Acetaminophen 1,000 MG/100 ML PIGGYBACK 400 MG IV ×3 (03:52→22:31)
[2024-06-18] MEDS: Pantoprazole Sodium 40 MG/10 ML VIAL IVPUSH (05:10)
[2024-06-18 06:10] LABS: Hematocrit 32.1 % (37.0-47.0); Hemoglobin 10.2 g/dl (12.0-16.0); Mean Corpuscular HGB Conc 31.8 g/dl (31.0-35.0); Mean Corpuscular Hemoglobin 27.9 pg (27.0-33.0); Mean Corpuscular Volume 87.7 fL (80.0-98.0); Mean Platelet Volume 9.9 fL (9.4-12.3); Platelet Count 144 X10*3/uL (160-400); Red Blood Count 3.66 X10*6/uL (4.20-5.50); Red Cell Distribution Width 20.4 % (11.0-16.0); White Blood Count 5.6 X10*3/uL (4.8-10.8)
[2024-06-18 06:30] LABS: Albumin Level 2.9 g/dL (3.5-5.0); Anion Gap 14 (12-20); Blood Urea Nitrogen 9 mg/dL (9-16); Calcium 8.9 mg/dL (8.4-10.2); Carbon Dioxide 21 mmol/L (22-29); Chloride 108 mmol/L (96-108); Creatinine Clr Calc Pharmacy 40.9; Estimated Glomerular Filt Rate 58; Glucose Random 100 mg/dL (60-115); Magnesium 1.7 mg/dL (1.6-2.6); Phosphorus 2.7 mg/dL (2.7-4.5); Potassium 3.8 mmol/L (3.3-5.1); Sodium 139 mmol/L (135-145)
--- NOTE | 2024-06-18 08:42 | PM.PNGS ---
Subjective Subjective Date of Service: 06/18/24 Interval history: Very confused and agitated this morning. Tolerating clear liquids without nausea or vomiting. Pain has improved and she is currently comfortable. Only got out of bed once this weekend she recounts. Having diarrhea. Physical Exam Vital Signs: Vital Signs: Last Vital Signs Temp 97.1 F 06/18/24 07:54 Pulse 92 06/18/24 07:54 Resp 16 06/18/24 07:54 BP 166/84 H 06/18/24 07:54 Pulse Ox 97 06/18/24 07:54 O2 Del Method Room Air 06/18/24 07:54 O2 Flow Rate 3 06/14/24 18:01 BMI result Body Mass Index 21.7 Const: General: comfortable, alert and anxious Resp: Effort & Inspection: normal respiratory effort GI: Other: RANJEET drain scant serous output Inspection: No distended and Yes incision (clean) Palpation (GI): Soft to palpation, Tenderness to palpation present (GI) (mild incisional) and no guarding Percussion: Yes normal to percussion Skin: General skin exam: no rashes or lesions noted Neuro: General: moves all extremities Objective Data Active Medications Calcium Carbonate (Calcium Carbonate 750 Mg Tab.Chew) 750 mg PO Q4H PRN PRN Reason: Heartburn Gabapentin (Gabapentin 300 Mg Capsule) 300 mg PO BEDTIME [facility] Last Admin: 06/17/24 19:58 Dose: 300 mg Documented By: SUGAR Acetaminophen (Ofirmev) 1,000 mg in 100 mls @ 400 mls/hr IV Q6H [facility] Last Infusion: 06/18/24 05:08 Dose: Infused Documented By: SUGAR Nutrition (Parenteral) (Parenteral Nutrition) 720 mls @ 30 mls/hr IV .Q24H [facility]; Protocol Stop: 06/18/24 20:59 Last Admin: 06/17/24 21:27 Dose: 30 mls/hr Documented By: SUGAR Lidocaine (Lidocaine 5 % Ointment 35 Gm) 1 appl TOPICAL Q6H PRN; Protocol PRN Reason: right flank pain Magnesium Hydroxide (Milk Of Magnesia 30 Ml Oral.Susp) 30 ml PO DAILY PRN PRN Reason: Constipation Melatonin (Melatonin 3 Mg Tablet) 6 mg PO BEDTIME PRN PRN Reason: Insomnia Metoprolol Tartrate (Metoprolol Tartrate 12.5 Mg Halftab) 12.5 mg PO BID [facility]; Protocol Last Admin: 06/17/24 19:58 Dose: 12.5 mg Documented By: SUGAR Morphine Sulfate (Morphine Sulfate 4 Mg/Ml Cartridge) 4 mg IVPUSH Q4H PRN; Protocol PRN Reason: Pain, Severe (Pain Scale 7-10) Last Admin: 06/17/24 17:41 Dose: 4 mg Documented By: RADHA Ondansetron HCl (Ondansetron Hcl 4 Mg/2 Ml Vial) 4 mg IVPUSH QID PRN PRN Reason: Nausea Pantoprazole Sodium (Pantoprazole Sodium 40 Mg/10 Ml Vial) 40 mg IVPUSH BID@0630,1630 [facility] Last Admin: 06/18/24 05:10 Dose: 40 mg Documented By: SUGAR Pharmacy Consult (Consult Rx Parenteral Nutrition Ordering) 1 each MISCELLANE DAILY PRN PRN Reason: Consult order Quetiapine Fumarate (Quetiapine Fumarate 25 Mg Tablet) 25 mg PO DAILY [facility] Last Admin: 06/17/24 07:51 Dose: 25 mg Documented By: RADHA Sodium Chloride (0.9 % Sodium Chloride Flush 3 Ml Syringe) 3 ml IVFLUSH QSHIFT [facility] Last Admin: 06/17/24 21:28 Dose: 3 ml Documented By: SUGAR Labs 06/18/24 05:58 06/18/24 05:58 Labs: Laboratory Results - last 24 hr 06/17/24 06/18/24 14:56 05:58 MCV 87.7 MCH 27.9 MCHC 31.8 RDW 20.4 H Plt Count 144 L MPV 9.9 Absolute Nucleated RBC 0.000 Nucleated RBC % (auto) 0.0 Anion Gap 14 Estim Creat Clear Calc 40.9 Estimated GFR 58 Random Glucose 100 Calcium 8.9 D Phosphorus 2.7 Magnesium 1.7 Albumin 2.9 L Blood Type O Positive Antibody Screen POSITIVE Antibody Identification Inconclusive Crossmatch (AHG) See Detail Procedures Date of Service Date of Service: 06/18/24 Progress Note: A&P Assessment and plan (1) Duodenal perforation: Status: Acute Plan POD #4 s/p Exploratory laparotomy, removal of duodenal polyp, repair of duodenal perforation with omental patch. No acute surgical issues. Abd benign with clean incision and serous RANJEET output. Will advance to solid diet. Cont IV abx, RANJEET drain for now. PT consult. If tolerating solid diet, can be last day for PPN. Time Spent With Patient Time: Total time managing care of this patient today ____ minutes. Quality Stroke Does the patient have a stroke diagnosis?: No VTE Prior VTE?: No VTE Risk Level:: Medical - moderate - high VTE Device Contraindication: N/A - Device Ordered VTE Drug Contraindication: Treatment Not Indicated
[2024-06-18] MEDS: QUEtiapine Fumarate 25 MG TABLET PO (09:54)
[2024-06-18] MEDS: Metoprolol Tartrate 12.5 MG HALFTAB PO ×2 (09:54→19:59)
[2024-06-18] MEDS: 0.9 % Sodium Chloride Flush 3 ML SYRINGE IVFLUSH ×3 (09:55→22:30)
--- NOTE | 2024-06-18 10:27 | MHC.CLN ---
F/U PPN STARTED 06/17/24: PPN AT 30 ML PER HOUR TO PROVIDE 31 G PROTEIN, 72 G DEXTROSE, 367 KCALS. REPLETE LYTES NEEDED. DIET STARTED TODAY, REGULAR, LOW FIBER. RECOMMEND ADVANCE PPN TODAY TO: PPN AT 50 ML PER HOUR TO PROVIDE 51 G PROTEIN, 120 G DEXTROSE, 612 KCALS. REPLETE LYTES NEEDED. CHECK TRIGLYCERIDES. FOLLOW FOR DIET TOLERANCE/INTAKE. CONTINUE PPN IF UNABLE TO TAKE ADEQUATE KCALS VIA PO. SEE CLINICAL NUTRITION ASSESSMENT 06/18/24.
--- NOTE | 2024-06-18 11:05 | HO.PM.IMPN ---
Subjective Subjective Date of Service: 06/18/24 Interval History: Noted to be confused this morning, but able to provide meaningful history, complaining of pain only with movement and at site of incision denies nausea vomiting tolerated clear liquid diet now advanced to regular by General surgery, diarrhea stopped, no other acute events overnight. Review of Systems All other system reviewed and are negative. Physical Exam Vital Signs: Vital Signs: Last Vital Signs Temp 97.1 F 06/18/24 07:54 Pulse 92 06/18/24 07:54 Resp 16 06/18/24 07:54 BP 166/84 H 06/18/24 07:54 Pulse Ox 97 06/18/24 07:54 O2 Del Method Room Air 06/18/24 07:54 O2 Flow Rate 3 06/14/24 18:01 BMI result Body Mass Index 21.7 Const: Other: General awake alert, no acute distress. Neck no JVD. CVS regular rate rhythm, Respiratory lungs clear to auscultation, no respiratory distress, no wheeze, no rhonchi. Gastrointestinal abdomen soft, KIRK drain with serosanguineous drainage, normal bowel sounds, tenderness at incision site, no guarding , no rigidity. Extremities no edema. Neuro non focal Skin no rash Objective Data Active Medications Calcium Carbonate (Calcium Carbonate 750 Mg Tab.Chew) 750 mg PO Q4H PRN PRN Reason: Heartburn Gabapentin (Gabapentin 300 Mg Capsule) 300 mg PO BEDTIME [facility] Last Admin: 06/17/24 19:58 Dose: 300 mg Documented By: SUGAR Acetaminophen (Ofirmev) 1,000 mg in 100 mls @ 400 mls/hr IV Q6H [facility] Last Infusion: 06/18/24 10:36 Dose: Infused Documented By: NARA Nutrition (Parenteral) (Parenteral Nutrition) 720 mls @ 30 mls/hr IV .Q24H [facility]; Protocol Stop: 06/18/24 20:59 Last Admin: 06/17/24 21:27 Dose: 30 mls/hr Documented By: SUGAR Lidocaine (Lidocaine 5 % Ointment 35 Gm) 1 appl TOPICAL Q6H PRN; Protocol PRN Reason: right flank pain Magnesium Hydroxide (Milk Of Magnesia 30 Ml Oral.Susp) 30 ml PO DAILY PRN PRN Reason: Constipation Melatonin (Melatonin 3 Mg Tablet) 6 mg PO BEDTIME PRN PRN Reason: Insomnia Metoprolol Tartrate (Metoprolol Tartrate 12.5 Mg Halftab) 12.5 mg PO BID [facility]; Protocol Last Admin: 06/18/24 09:54 Dose: 12.5 mg Documented By: NARA Morphine Sulfate (Morphine Sulfate 4 Mg/Ml Cartridge) 4 mg IVPUSH Q4H PRN; Protocol PRN Reason: Pain, Severe (Pain Scale 7-10) Last Admin: 06/17/24 17:41 Dose: 4 mg Documented By: RADHA Ondansetron HCl (Ondansetron Hcl 4 Mg/2 Ml Vial) 4 mg IVPUSH QID PRN PRN Reason: Nausea Pantoprazole Sodium (Pantoprazole Sodium 40 Mg/10 Ml Vial) 40 mg IVPUSH BID@0630,1630 [facility] Last Admin: 06/18/24 05:10 Dose: 40 mg Documented By: SUGAR Pharmacy Consult (Consult Rx Parenteral Nutrition Ordering) 1 each MISCELLANE DAILY PRN PRN Reason: Consult order Quetiapine Fumarate (Quetiapine Fumarate 25 Mg Tablet) 25 mg PO DAILY [facility] Last Admin: 06/18/24 09:54 Dose: 25 mg Documented By: NARA Sodium Chloride (0.9 % Sodium Chloride Flush 3 Ml Syringe) 3 ml IVFLUSH QSHIFT [facility] Last Admin: 06/18/24 09:55 Dose: 3 ml Documented By: NARA Labs 06/18/24 05:58 06/18/24 05:58 Labs: Laboratory Results - last 24 hr 06/17/24 06/18/24 14:56 05:58 MCV 87.7 MCH 27.9 MCHC 31.8 RDW 20.4 H Plt Count 144 L MPV 9.9 Absolute Nucleated RBC 0.000 Nucleated RBC % (auto) 0.0 Anion Gap 14 Estim Creat Clear Calc 40.9 Estimated GFR 58 Random Glucose 100 Calcium 8.9 D Phosphorus 2.7 Magnesium 1.7 Albumin 2.9 L Blood Type O Positive Antibody Screen POSITIVE Antibody Identification Inconclusive Crossmatch (AHG) See Detail Assessment and Plan (1) Cholelithiasis: Status: Acute (2) Choledocholithiasis: Status: Acute (3) Near syncope: Status: Acute (4) Acute GI bleeding: Status: Acute (5) Encephalopathy acute: Status: Acute Plan Mehvls[age]old female with pertinent history of mood disorder, history of PE on Xarelto, Alzheimer's dementia, gastroesophageal reflux disease, recurrent UTI, history of breast cancer (2006) in remission, peripheral neuropathy admitted for acute gi bleed with acute symptomatic blood loss anemia # s/p Exploratory laparotomy, removal of duodenal polyp, repair of duodenal perforation with omental patch. POD #3 Good pain control, on IV morphine, iv Tylenol scheduled, kirk drain with scant drainage cholecystectomy not done at the time of surgery as gallbladder was nondilated, with no evidence of acute cholecystitis. Further management of CBD stones as per GI. Hold Xarelto resume on 06/28 Diet advanced to solid will DC PPN . oob to chair and PT eval #acute gi bleed with acute symptomatic blood loss anemia (near syncope) -no recurrent episodes of GI bleed, status post 1 unit of packed RBC on admission, hematocrit improved but dropped to 25.6 on 06/17 likely dilutional and due to surgery, treated with 1 more unit hematocrit improved to 32.1 -hold xarelto, transitioned to by mouth PPI -status post upper endoscopy that showed mild antral gastritis, hiatal hernia, colonoscopy showed 4 mm polyp biopsied and removed from cecum, sigmoid diverticulosis, internal and external hemorrhoids, no AVMs no bleeding outpatient GI follow-up, pathology pending. # diarrhea resolved was likely due to antibiotics # mild acute toxic metabolic encephalopathy Has chronic UTI ,E coli ESBL positive, patient asymptomatic likely colonization as per ID, during previous hospitalization since patient confused will give 1 dose of IV ertapenem and discuss further treatment with ID No electrolyte abnormality, stable oxygenation and BP, follow clinical course. # hypertension on metoprolol # history of PE -hold Xarelto due to above # abnormal CT finding-question choledocholithiasis - MRCP showed choledocholithiasis with dilatation with the distal common bile duct, cholelithiasis, normal liver enzymes. Outpatient follow-up for choledocholithiasis with GI for possible ERCP. # Alzheimer's dementia with mood disorder -continue quetiapine # GERD -on PPI # unspecified peripheral neuropathy -continue gabapentin DVT prophylaxis-compression due to GI bleed Full code Patient requires continued inpatient hospitalization for management of postoperative care for duodenal perforation, IV analgesics, and follow-up on confusion. Quality Stroke Does the patient have a stroke diagnosis?: No VTE Prior VTE?: No VTE Risk Level:: Medical - moderate - high VTE Device Contraindication: N/A - Device Ordered VTE Drug Contraindication: Treatment Not Indicated
[2024-06-18 11:17] LABS: Triglycerides 125 mg/dL (<150)
[2024-06-18] MEDS: Ertapenem Sodium 1 GM in 0.9 % Sodium Chloride 50 ML IV (12:10)
--- NOTE | 2024-06-18 13:00 | PC.NURSE ---
Attempted to remove hirsch catheter, explained the procedure and patient refused stating she is not able to get up to the bedside commode at this time, and does not want external catheter as it does not work well for her.
--- NOTE | 2024-06-18 14:56 | MHC.CM.PN ---
Per rounds, pt is not ready for DC, she requires treatment for post operative care, and PT eval for disposition. CM to follow and assist with DC plan.
--- NOTE | 2024-06-18 18:00 | PC.NURSE ---
Patient's IV infiltrated, edema and redness noticed around the IV site, patient also c/o pain at the site. IV infusion stopped and IV removed. Patient was offered ice for the swelling but declined. Provider notified that the patient lost access. [employer] Professor was contacted to request ultrasound guided IV placement, no staff available to place new ultrasound guided IV at this time. Patient is a hard stick on the left, R side cannot be used do to history of R mastectomy
[2024-06-18 19:49] LABS: CDiff Gene PCR NEGATIVE (Negative)
[2024-06-18] MEDS: Gabapentin 300 MG CAPSULE PO (20:00)
[2024-06-19] VITALS (8 sets, daily range): BP systolic 140–169; BP diastolic 73–82; PULSE 88–118; RESP 16–23; TEMP 36.1–36.4; O2SAT 92–99
[2024-06-19] MEDS: Acetaminophen 1,000 MG/100 ML PIGGYBACK 400 MG IV ×2 (03:42→10:16)
[2024-06-19] MEDS: Omeprazole 40 MG CAPSULE.DR PO ×2 (05:32→15:59)
[2024-06-19 06:47] LABS: Albumin Level 3.2 g/dL (3.5-5.0); Anion Gap 15 (12-20); Blood Urea Nitrogen 8 mg/dL (9-16); Calcium 9.3 mg/dL (8.4-10.2); Carbon Dioxide 20 mmol/L (22-29); Chloride 106 mmol/L (96-108); Creatinine Clr Calc Pharmacy 43.3; Estimated Glomerular Filt Rate > 60; Glucose Random 90 mg/dL (60-115); Magnesium 1.7 mg/dL (1.6-2.6); Phosphorus 2.9 mg/dL (2.7-4.5); Potassium 3.2 mmol/L (3.3-5.1); Sodium 138 mmol/L (135-145)
--- NOTE | 2024-06-19 08:03 | PM.PNGS ---
Subjective Subjective Date of Service: 06/19/24 Interval history: Pod 4 following repair of duodenal perforation. She denies significant abdominal pain, nausea or vomiting. She tolerated a liquid diet. She is concerned about her elevated blood pressure this morning. Physical Exam Vital Signs: Vital Signs: Last Vital Signs Temp 97.6 F 06/19/24 07:30 Pulse 89 06/19/24 07:30 Resp 18 06/19/24 07:30 BP 169/82 H 06/19/24 07:30 Pulse Ox 94 06/19/24 07:30 O2 Del Method Room Air 06/19/24 07:30 O2 Flow Rate 3 06/14/24 18:01 BMI result Body Mass Index 21.7 Const: General: comfortable, alert and anxious Resp: Effort & Inspection: normal respiratory effort GI: Inspection: No distended and Yes incision (clean, dry with intact bettina, no discharge) Palpation (GI): Soft to palpation, Tenderness to palpation present (GI) (mild incisional) and no guarding Percussion: Yes normal to percussion Skin: General skin exam: no rashes or lesions noted Neuro: Other: Responding appropriately to questioning General: moves all extremities Objective Data Active Medications Calcium Carbonate (Calcium Carbonate 750 Mg Tab.Chew) 750 mg PO Q4H PRN PRN Reason: Heartburn Gabapentin (Gabapentin 300 Mg Capsule) 300 mg PO BEDTIME [facility] Last Admin: 06/18/24 20:00 Dose: 300 mg Documented By: RIGOBERTO Acetaminophen (Ofirmev) 1,000 mg in 100 mls @ 400 mls/hr IV Q6H [facility] Last Infusion: 06/19/24 03:57 Dose: Infused Documented By: RIGOBERTO Lidocaine (Lidocaine 5 % Ointment 35 Gm) 1 appl TOPICAL Q6H PRN; Protocol PRN Reason: right flank pain Magnesium Hydroxide (Milk Of Magnesia 30 Ml Oral.Susp) 30 ml PO DAILY PRN PRN Reason: Constipation Melatonin (Melatonin 3 Mg Tablet) 6 mg PO BEDTIME PRN PRN Reason: Insomnia Metoprolol Tartrate (Metoprolol Tartrate 12.5 Mg Halftab) 12.5 mg PO BID [facility]; Protocol Last Admin: 06/18/24 19:59 Dose: 12.5 mg Documented By: RIGOBERTO Morphine Sulfate (Morphine Sulfate 4 Mg/Ml Cartridge) 4 mg IVPUSH Q4H PRN; Protocol PRN Reason: Pain, Severe (Pain Scale 7-10) Last Admin: 06/17/24 17:41 Dose: 4 mg Documented By: RADHA Omeprazole (Omeprazole 40 Mg Capsule.Dr) 40 mg PO BID@0630,1630 [facility] Last Admin: 06/19/24 05:32 Dose: 40 mg Documented By: RIGOBERTO Ondansetron HCl (Ondansetron Hcl 4 Mg/2 Ml Vial) 4 mg IVPUSH QID PRN PRN Reason: Nausea Quetiapine Fumarate (Quetiapine Fumarate 25 Mg Tablet) 25 mg PO DAILY [facility] Last Admin: 06/18/24 09:54 Dose: 25 mg Documented By: NARA Sodium Chloride (0.9 % Sodium Chloride Flush 3 Ml Syringe) 3 ml IVFLUSH QSHIFT [facility] Last Admin: 06/18/24 22:30 Dose: 3 ml Documented By: RIGOBERTO Labs 06/18/24 05:58 06/19/24 06:10 Labs: Laboratory Results - last 24 hr 06/17/24 06/18/24 06/18/24 14:56 11:02 18:00 Hold Purple Top Anion Gap Estim Creat Clear Calc Estimated GFR Random Glucose Calcium Phosphorus Magnesium Albumin Triglycerides 125 C. difficile Tox B Gene NEGATIVE Blood Type O Positive Antibody Screen POSITIVE Antibody Identification Inconclusive Crossmatch (AHG) See Detail 06/19/24 06:10 Hold Purple Top SEE NOTE Anion Gap 15 Estim Creat Clear Calc 43.3 Estimated GFR > 60 Random Glucose 90 Calcium 9.3 Phosphorus 2.9 Magnesium 1.7 Albumin 3.2 L Triglycerides C. difficile Tox B Gene Blood Type Antibody Screen Antibody Identification Crossmatch (AHG) Procedures Date of Service Date of Service: 06/19/24 Progress Note: A&P Assessment and plan (1) Duodenal perforation: Status: Acute Plan Pod for following repair of duodenal ulcer and polypectomy. Pathology from the polypectomy reveals hyperplastic polyp with extensive surface ulceration; negative for dysplasia. She feels much improved this morning without significant abdominal pain. She denies nausea or vomiting. She had several bowel movements and is tolerating a regular diet. Continue out of bed, ambulation, incentive spirometry. Discharge planning. Hypertension per hospitalist team Time Spent With Patient Time: Total time managing care of this patient today ____ minutes. Quality Stroke Does the patient have a stroke diagnosis?: No VTE Prior VTE?: No VTE Risk Level:: Medical - moderate - high VTE Device Contraindication: N/A - Device Ordered VTE Drug Contraindication: Treatment Not Indicated
[2024-06-19] MEDS: Loperamide HCl 2 MG CAPSULE 4 MG PO (10:13)
[2024-06-19] MEDS: Metoprolol Tartrate 12.5 MG HALFTAB PO ×2 (10:13→21:23)
[2024-06-19] MEDS: QUEtiapine Fumarate 25 MG TABLET PO (10:13)
[2024-06-19] MEDS: 0.9 % Sodium Chloride Flush 3 ML SYRINGE IVFLUSH ×2 (10:15→15:59)
--- NOTE | 2024-06-19 10:45 | P.PNIM_ITS ---
Subjective Subjective Date of Service: 06/19/24 Interval History: Being followed for GI bleed/acute symptomatic anemia. Complaining of diarrhea had 1 loose stool last night and again this morning, provide history of chronic intermittent diarrhea, requesting for Imodium, C diff negative, denies urinary symptoms, tolerating diet no nausea, no vomiting, good pain control, Samuel with non cloudy, yellow urine. Review of Systems All other system reviewed and negative. Physical Exam 2 Vital Signs: Vital Signs: Last Vital Signs Temp 97.6 F 06/19/24 07:30 Pulse 89 06/19/24 07:30 Resp 18 06/19/24 07:30 BP 169/82 H 06/19/24 07:30 Pulse Ox 94 06/19/24 07:30 O2 Del Method Room Air 06/19/24 07:30 O2 Flow Rate 3 06/14/24 18:01 BMI result Body Mass Index 21.7 Const: Other: General awake alert, no acute distress. Neck no JVD. CVS regular rate rhythm, Respiratory lungs clear to auscultation, no respiratory distress, no wheeze, no rhonchi. Gastrointestinal abdomen soft, KIRK drain with scant serosanguineous drainage, normal bowel sounds, tenderness at incision site, no guarding , no rigidity. Extremities no edema. Neuro non focal Skin no rash Samuel clear urine Objective Data Active Medications Calcium Carbonate (Calcium Carbonate 750 Mg Tab.Chew) 750 mg PO Q4H PRN PRN Reason: Heartburn Gabapentin (Gabapentin 300 Mg Capsule) 300 mg PO BEDTIME [facility] Last Admin: 06/18/24 20:00 Dose: 300 mg Documented By: RIGOBERTO Acetaminophen ([facility]) 1,000 mg in 100 mls @ 400 mls/hr IV Q6H [facility] Last Infusion: 06/19/24 10:41 Dose: Infused Documented By: BROKt Lidocaine (Lidocaine 5 % Ointment 35 Gm) 1 appl TOPICAL Q6H PRN; Protocol PRN Reason: right flank pain Magnesium Hydroxide (Milk Of Magnesia 30 Ml Oral.Susp) 30 ml PO DAILY PRN PRN Reason: Constipation Melatonin (Melatonin 3 Mg Tablet) 6 mg PO BEDTIME PRN PRN Reason: Insomnia Metoprolol Tartrate (Metoprolol Tartrate 12.5 Mg Halftab) 12.5 mg PO BID [facility]; Protocol Last Admin: 06/19/24 10:13 Dose: 12.5 mg Documented By: NARA Morphine Sulfate (Morphine Sulfate 4 Mg/Ml Cartridge) 4 mg IVPUSH Q4H PRN; Protocol PRN Reason: Pain, Severe (Pain Scale 7-10) Last Admin: 06/17/24 17:41 Dose: 4 mg Documented By: RADHA Omeprazole (Omeprazole 40 Mg Capsule.Dr) 40 mg PO BID@0630,1630 [facility] Last Admin: 06/19/24 05:32 Dose: 40 mg Documented By: RIGOBERTO Ondansetron HCl (Ondansetron Hcl 4 Mg/2 Ml Vial) 4 mg IVPUSH QID PRN PRN Reason: Nausea Quetiapine Fumarate (Quetiapine Fumarate 25 Mg Tablet) 25 mg PO DAILY [facility] Last Admin: 06/19/24 10:13 Dose: 25 mg Documented By: NARA Sodium Chloride (0.9 % Sodium Chloride Flush 3 Ml Syringe) 3 ml IVFLUSH QSHIFT [facility] Last Admin: 06/19/24 10:15 Dose: 3 ml Documented By: NARA Labs 06/18/24 05:58 06/19/24 06:10 Labs: Laboratory Results - last 24 hr 06/17/24 06/18/24 06/18/24 14:56 11:02 18:00 Hold Purple Top Anion Gap Estim Creat Clear Calc Estimated GFR Random Glucose Calcium Phosphorus Magnesium Albumin Triglycerides 125 C. difficile Tox B Gene NEGATIVE Blood Type O Positive Antibody Screen POSITIVE Antibody Identification Inconclusive Crossmatch (AHG) See Detail 06/19/24 06:10 Hold Purple Top SEE NOTE Anion Gap 15 Estim Creat Clear Calc 43.3 Estimated GFR > 60 Random Glucose 90 Calcium 9.3 Phosphorus 2.9 Magnesium 1.7 Albumin 3.2 L Triglycerides C. difficile Tox B Gene Blood Type Antibody Screen Antibody Identification Crossmatch (AHG) Assessment and Plan (1) Choledocholithiasis: Status: Acute (2) Near syncope: Status: Acute (3) Acute GI bleeding: Status: Acute Plan Czdvbg-kct-dvvv-old female with pertinent history of mood disorder, history of PE on Xarelto, Alzheimer's dementia, gastroesophageal reflux disease, recurrent UTI, history of breast cancer (2006) in remission, peripheral neuropathy admitted for acute gi bleed with acute symptomatic blood loss anemia # s/p Exploratory laparotomy, removal of duodenal polyp, repair of duodenal perforation with omental patch. POD #5 Good pain control, dc IV morphine and iv Tylenol , kirk drain with scant drainage cholecystectomy not done at the time of surgery as gallbladder was nondilated, with no evidence of acute cholecystitis. Further management of CBD stones as per GI. Hold Xarelto resume on 06/28 Tolerating diet Seen by Physical therapy patient declined short-term rehab will recommend out of bed to chair and ambulation 3 times a day. #acute gi bleed with acute symptomatic blood loss anemia (near syncope) -no recurrent episodes of GI bleed, status post 1 unit of packed RBC on admission, hematocrit improved but dropped to 25.6 on 06/17 likely dilutional and due to surgery, treated with 1 more unit hematocrit improved to 32.1 -hold xarelto, transitioned to by mouth PPI on 06/18 -status post upper endoscopy that showed mild antral gastritis, hiatal hernia, colonoscopy showed 4 mm polyp biopsied and removed from cecum, sigmoid diverticulosis, internal and external hemorrhoids, no AVMs no bleeding outpatient GI follow-up pathology of duodenal polyp is negative for metaplasia, colonic polyp negative for high-grade dysplasia . 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 # hypertension on metoprolol # history of PE -hold Xarelto due to above # abnormal CT finding-question choledocholithiasis - MRCP showed choledocholithiasis with dilatation with the distal common bile duct, cholelithiasis, normal liver enzymes. Outpatient follow-up for choledocholithiasis with GI for possible ERCP. # Alzheimer's dementia with mood disorder -continue quetiapine # GERD -on PPI # unspecified peripheral neuropathy -continue gabapentin DVT prophylaxis-compression due to GI bleed Full code Patient requires continued inpatient hospitalization for management of postoperative care for duodenal perforation, IV analgesics, and follow-up on confusion. Quality Stroke Does the patient have a stroke diagnosis?: No VTE Prior VTE?: No VTE Risk Level:: Medical - moderate - high VTE Device Contraindication: N/A - Device Ordered VTE Drug Contraindication: Treatment Not Indicated
--- NOTE | 2024-06-19 11:00 | PC.NURSE ---
Addendum entered by Melania Temple RN 06/19/24 17:31: Patient voided aprx 200ml on bedside commode Original Note: Samuel catheter discontinued, patient due to void by 1700, tolerated procedure well
--- NOTE | 2024-06-19 14:15 | MHC.CLN ---
F/U TOLERATING REGULAR, LOW FIBER DIET. PPN DISCONTINUED 06/18. FOLLOW FOR INTAKE AND DIET TOLERANCE.
[2024-06-19] MEDS: Gabapentin 300 MG CAPSULE PO (21:24)
[2024-06-19] MEDS: Melatonin 3 MG TABLET 6 MG PO (21:24)
[2024-06-20] MEDS: 0.9 % Sodium Chloride Flush 3 ML SYRINGE IVFLUSH ×2 (00:25→08:07)
[2024-06-20 04:00] VITALS: BP 173/81; PULSE 90; RESP 22; TEMP 36.6; O2SAT 98
[2024-06-20] MEDS: Omeprazole 40 MG CAPSULE.DR PO ×2 (05:50→16:25)
[2024-06-20 07:15] LABS: Albumin Level 3.1 g/dL (3.5-5.0); Anion Gap 16 (12-20); Blood Urea Nitrogen 9 mg/dL (9-16); Calcium 9.3 mg/dL (8.4-10.2); Carbon Dioxide 21 mmol/L (22-29); Chloride 105 mmol/L (96-108); Creatinine Clr Calc Pharmacy 45.3; Estimated Glomerular Filt Rate > 60; Glucose Random 101 mg/dL (60-115); Magnesium 1.7 mg/dL (1.6-2.6); Phosphorus 3.4 mg/dL (2.7-4.5); Potassium 3.5 mmol/L (3.3-5.1); Sodium 138 mmol/L (135-145)
--- NOTE | 2024-06-20 07:27 | PC.NURSE ---
P\Assumed care of patient since 1844 on 06/19/24. 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 She was able to be easily redirected. NSR on tele. Loose stool x 1 reported. Pills taken whole with water. No injury reported. Safety precautions in place.
[2024-06-20 07:39] VITALS: BP 164/79; PULSE 96; RESP 18; TEMP 36.1; O2SAT 98
[2024-06-20] MEDS: QUEtiapine Fumarate 25 MG TABLET PO (08:07)
[2024-06-20] MEDS: Metoprolol Tartrate 12.5 MG HALFTAB PO (08:07)
--- NOTE | 2024-06-20 08:43 | P.PNGS_ITS ---
Subjective Subjective Date of Service: 06/20/24 Interval history: ?I want to go home. Patient reports feeling much improved, tolerating a regular diet without nausea or vomiting. She continues to have bowel movements. Physical Exam 2 Vital Signs: Vital Signs: Last Vital Signs Temp 97.0 F 06/20/24 07:39 Pulse 96 06/20/24 07:39 Resp 18 06/20/24 07:39 BP 164/79 H 06/20/24 07:39 Pulse Ox 98 06/20/24 07:39 O2 Del Method Room Air 06/20/24 07:39 O2 Flow Rate 3 06/14/24 18:01 BMI result Body Mass Index 21.7 Const: General: no acute distress Nutritional Appearance: well nourished Orientation/consciousness: patient oriented x3 Resp: Effort & Inspection: normal respiratory effort GI: Other: Abdomen soft and nondistended, subcostal incision is clean, dry, and intact. RANJEET with serous fluid noted. RANJEET was removed and sterile dressings applied. Skin: Other: Warm, dry, no rash Neuro: General: patient oriented x3 Objective Data Active Medications Acetaminophen (Acetaminophen 325 Mg Tablet) 650 mg PO Q6H PRN PRN Reason: Pain, Mild (Pain Scale 1-3) Calcium Carbonate (Calcium Carbonate 750 Mg Tab.Chew) 750 mg PO Q4H PRN PRN Reason: Heartburn Gabapentin (Gabapentin 300 Mg Capsule) 300 mg PO BEDTIME [facility] Last Admin: 06/19/24 21:24 Dose: 300 mg Documented By: ROBB Lidocaine (Lidocaine 5 % Ointment 35 Gm) 1 appl TOPICAL Q6H PRN; Protocol PRN Reason: right flank pain Magnesium Hydroxide (Milk Of Magnesia 30 Ml Oral.Susp) 30 ml PO DAILY PRN PRN Reason: Constipation Melatonin (Melatonin 3 Mg Tablet) 6 mg PO BEDTIME PRN PRN Reason: Insomnia Last Admin: 06/19/24 21:24 Dose: 6 mg Documented By: ROBB Metoprolol Tartrate (Metoprolol Tartrate 12.5 Mg Halftab) 12.5 mg PO BID [facility]; Protocol Last Admin: 06/20/24 08:07 Dose: 12.5 mg Documented By: ROBBIN Omeprazole (Omeprazole 40 Mg Capsule.) 40 mg PO BID@0630,1630 [facility] Last Admin: 06/20/24 05:50 Dose: 40 mg Documented By: ROBB Ondansetron HCl (Ondansetron Hcl 4 Mg/2 Ml Vial) 4 mg IVPUSH QID PRN PRN Reason: Nausea Quetiapine Fumarate (Quetiapine Fumarate 25 Mg Tablet) 25 mg PO DAILY [facility] Last Admin: 06/20/24 08:07 Dose: 25 mg Documented By: ROBBIN Sodium Chloride (0.9 % Sodium Chloride Flush 3 Ml Syringe) 3 ml IVFLUSH QSHIFT [facility] Last Admin: 06/20/24 08:07 Dose: 3 ml Documented By: ROBBIN Labs 06/18/24 05:58 06/20/24 06:26 Labs: Laboratory Results - last 24 hr 06/17/24 06/20/24 14:56 06:26 Hold Purple Top SEE NOTE Anion Gap 16 Estim Creat Clear Calc 45.3 Estimated GFR > 60 Random Glucose 101 Calcium 9.3 Phosphorus 3.4 Magnesium 1.7 Albumin 3.1 L Blood Type O Positive Antibody Screen POSITIVE Antibody Identification Inconclusive FERNANDA, Polyspecific NEGATIVE Positive FERNANDA Work-up TNP Crossmatch (AHG) See Detail Procedures Date of Service Date of Service: 06/20/24 Progress Note: A&P Assessment and plan (1) Duodenal perforation: Status: Acute Plan 83-year-old female patient status post repair of a duodenal perforation. Progress well and is tolerating a regular diet. RANJEET was removed today. She is clear from my standpoint for discharge. She should follow up in the office in approximately 1 week. Time Spent With Patient Time: Total time managing care of this patient today ____ minutes. Quality Stroke Does the patient have a stroke diagnosis?: No VTE Prior VTE?: No VTE Risk Level:: Medical - moderate - high VTE Device Contraindication: N/A - Device Ordered VTE Drug Contraindication: Treatment Not Indicated
[2024-06-20 11:01] VITALS: BP 118/66; PULSE 107; RESP 18; TEMP 36.2; O2SAT 96
--- NOTE | 2024-06-20 13:58 | MHC.CM.PN ---
Addendum entered by Betina Aponte 06/20/24 16:20: Pt has been medically cleared for DC, she will go [facility] via [facility]. Original Note: Second IMM 06/20/24, pt has been medically cleared for DC. CM met with her and her about home and care. She only has her to help her, he uses a cane to walk, they have steps going into the house. We discussed her need for assistance intially after hosp stay. She agreed for referrals to be sent to [place] and [place] near [place]. Referrals sent.
--- NOTE | 2024-06-20 15:29 | P.DS_ITS ---
DS: Providers Provider Date of Service: 06/20/24 Date of admission: 06/10/24 17:15 Primary care physician: Vinicius Burnett MD Consults: 06/10/24 17:16 Consult to Gastroenterology Routine Consulting Provider: Praful Correia Reason for consultation: gi bleed, acute blood loss anemia 06/11/24 11:14 Consult to Wound Care Routine Reason for consultation: redness/small open area to buttocks 06/12/24 06:00 Consult to General Surgery Routine Consulting Provider: [facility] Reason for consultation: Gallstones, RUQ pain, CBD stones Has provider been notified: No 06/18/24 11:10 Consult to Infectious Diseases Routine Consulting Provider: MOE MOMIN Reason for consultation: esbl uti Has provider been notified: No DS: Diagnosis Discharge Diagnosis (1) Duodenal perforation: Status: Acute DS: Summary Hospital Course Hospital Course: History of present illness: Date of Service: 06/10/24 Attending physician on admission: Ashok Rahman Chief Complaint: Melena, near-syncope Zeztau-qvv-bjif-old female with pertinent history of mood disorder, history of PE on Xarelto, Alzheimer's dementia, gastroesophageal reflux disease, recurrent UTI, history of breast cancer (2006) in remission, peripheral neuropathy presented to the ED earlier today for evaluation of an episode of near syncope followed by an episode of melena that occurred this morning. The patient was recently admitted to [facility] from 04/27-04/30 due to acute upper GI bleed and her Xarelto was recommended to be held for an additional week which she reports she was compliant with. She states her stool returned to normal color until this morning when she had a bowel movement that was black and tarry. No bright red blood noted. She has had some abdominal cramping but no severe pain, nausea, vomiting. She states she has been experiencing some dyspnea on exertion especially on stairs as well as lightheadedness with position changes. Denies any fevers, chills, palpitations, syncope, chest pain. No vision changes. Since arrival, vital signs are stable, no hypotension though mildly tachycardic. Orthostatic vital signs are negative. On arrival H/H 8.2/26.7% drop to 7.2/23.8% on 3 hour recheck. Creatinine baseline, BUN elevated at 22, electrolyte levels normal except for CO2 19. CT abdomen pelvis shows circumferential wall thickening of the gastric pylorus which can be seen with gastritis as well as colonic diverticulosis without acute diverticulitis. There are also cholelithiasis with gallbladder wall hyperenhancement but no definitive signs of cholecystitis and mildly dilated common bile duct with multiple filling defects concerning for choledocholithiasis. She did have recent EGD performed on 04/30 which showed duodenal inflammatory polyp, hiatal hernia, and mild gastritis. Subsequent biopsies shows reactive changes and minimal chronic gastritis with a few neutrophils but negative for H pylori, intestinal metaplasia and dysplasia. In the ED, given 1 L IVF and transfused 1 unit packed red blood cells. Hospital course: Cdvqwl-pfy-nhgt-old female with pertinent history of mood disorder, history of PE on Xarelto, Alzheimer's dementia, gastroesophageal reflux disease, recurrent UTI, history of breast cancer (2006) in remission, peripheral neuropathy admitted for acute gi bleed with acute symptomatic blood loss anemia. # patient admitted with acute gi bleed with acute symptomatic blood loss anemia , received total 2 units of packed RBC hematocrit improved and remained stable initially treated with IV PPI Xarelto was held, Underwent upper endoscopy by Dr. Correia that showed mild antral gastritis, hiatal hernia, and colonoscopy showed 4 mm polyp biopsied and removed from cecum, sigmoid diverticulosis, internal and external hemorrhoids, no AVMs no bleeding noted, GI recommend to continue Prilosec b.i.d. and outpatient follow-up with GI in 1-[address] was concerning for choledocholithiasis, therefore had MRCP that showed choledocholithiasis with dilatation of distal common bile duct, cholelithiasis,had normal liver enzymes, Flexographic Press Operator attempted ERCP, at passage of the duodenoscope past the 2nd portion of the duodenum and to the area of the papilla were met with a complication of a perforation in the 2nd portion of the duodenum the procedure was then terminated and care was turned over to Dr. Hutson for repair of the perforation, she underwent Exploratory laparotomy, removal of duodenal polyp, repair of duodenal perforation with omental patch Postprocedure patient did well tolerating regular diet, good pain control, cholecystectomy not done at the time of surgery as gallbladder was nondilated, with no evidence of acute cholecystitis. pathology of duodenal polyp is negative for metaplasia, colonic polyp negative for high-grade dysplasia . Recommend outpatient follow-up with Dr. Correia for management of common bile duct stone, with possible repeat ERCP, recommend to hold Xarelto through 06/28 Further management of CBD stones as per GI,. # mild acute toxic metabolic encephalopathy resolved was likely due to use of narcotics, recent surgery and anesthesia seemed to be at baseline with underlying dementia, has chronic colonization of urine with ESBL positive , E coli. # mild acute hypokalemia likely due to GI loss repleted and normalized. # hypertension continue metoprolol. # history of PE recommend to hold Xarelto due to recent duodenal perforation as above. # Alzheimer's dementia with mood disorder continue quetiapine. # for unspecified peripheral neuropathy recommend to continue gabapentin. Time Attestation Discharge Coordination Time (in mins): 40 Quality: Safe Use of Opioids Does Pt have an Active Cancer Diagnosis on the Problem List?: No Quality: Stroke Does the patient have a stroke diagnosis?: No Physical Exam Vital Signs: Vital Signs: Last Vital Signs Temp 97.2 F 06/20/24 11:01 Pulse 107 H 06/20/24 11:01 Resp 18 06/20/24 11:01 BP 118/66 06/20/24 11:01 Pulse Ox 96 06/20/24 11:01 O2 Del Method Room Air 06/20/24 13:48 O2 Flow Rate 3 06/14/24 18:01 Oxygen Flow Rate 97 06/20/24 13:48 BMI result Body Mass Index 21.7 Const: Other: General awake alert, no acute distress. Neck no JVD. CVS regular rate rhythm, Respiratory lungs clear to auscultation, no respiratory distress, no wheeze, no rhonchi. Gastrointestinal abdomen soft, normal bowel sounds, non, no guarding , no rigidity. Extremities no edema. Neuro non focal Skin no rash Samuel clear urine DS: Data Data Completed and Pending Completed studies during hospitalization [Text1]: Pending at discharge 06/14/24 15:15 Surgical [PTH] Routine 06/14/24 17:00 Surgical [PTH] Routine Procedures Excision of Stomach, Pylorus, Via Natural or Artificial Opening Endoscopic, Diagnostic (04/27/24) Insertion of Infusion Device into Right Basilic Vein, Percutaneous Approach (04/11/23) Replacement of Left Knee Joint with Synthetic Substitute, Uncemented, Open Approach (10/06/20) Transfusion of Nonautologous Red Blood Cells into Peripheral Vein, Percutaneous Approach (04/27/24) Labs on day of discharge: Laboratory Results - last 24 hr 06/20/24 06:26 Hold Purple Top SEE NOTE Sodium 138 Potassium 3.5 Chloride 105 Carbon Dioxide 21 L Anion Gap 16 BUN 9 Creatinine 0.84 Estim Creat Clear Calc 45.3 Estimated GFR > 60 Random Glucose 101 Calcium 9.3 Phosphorus 3.4 Magnesium 1.7 Albumin 3.1 L Discharge Plan Discharge Anticipated Discharge Date/Time: 06/20/24 15:24 Patient Disposition: Xfer SNF Discharge Diagnosis: Acute GI bleed Near-syncope Duodenal perforation Referrals: Jose Angel Hutson MD [Physician] - 1 Week Po,Vinicius Magdaleno MD [Primary Care Provider] - 1 Week Discharge Medications: New omeprazole 40 mg Capsule,Delayed Release(Dr/Ec) 40 mg PO BID@0630,1630 Qty: 60 0RF Continued quetiapine [Seroquel] 25 mg tablet 25 mg PO DAILY Qty: 90 2RF metoprolol tartrate 25 mg tablet 12.5 mg PO BID 90 Days Qty: 90 3RF folic acid 800 mcg Tablet 0.8 mg PO DAILY gabapentin 300 mg capsule 300 mg PO BEDTIME 90 Days Qty: 90 3RF (DME) right mastectomy bra See Rx Instructions .Route .MEDSUPPLY Qty: 2 0RF Rx Instructions: As directed Held Xarelto 20 mg tablet 20 mg PO BEDTIME Hold Instructions: Resume on 06/28/24. Discontinued omeprazole 20 mg capsule,delayed release(DR/EC) 20 mg PO DAILY@0630 Discharge Orders: Discharge Order (Routine); Ordered 06/20/24 Ordered By: Ashok Rahman Activity on Discharge: As tolerated Stand Alone Forms: Patient Portal Discharge page Print Language: Uzbek Activity Restrictions/Additional Instructions: If the incision area is tender, you may apply an ice pack for short intervals (No more than 20 minutes on, followed by at least 20 minutes off). Do not apply heat. Do not use creams, lotions, or topical antibiotics. Ok to shower. You have bettina closing your incision and these will be removed approximately 10-14 days after surgery. NO HEAVY LIFTING (>10lbs) or strenuous activity. Follow up in office with Dr. Hutson in 1 week. ([phone]) Call Your Doctor If: -Your temperature exceeds 101.5? F -You experience excessive pain or swelling -You have an unexpected reaction to medication -You have excessive bleeding -You experience continued vomiting/nausea -Your incision begins to separate -Your incision shows signs of infection such as increased redness, swelling, excessive pain, drainage (light blood or clear fluid is normal) or heat Topical Wound Care Recommendations: Buttock - Cleanse with PH balanced soap and rinse with warm water, pat dry. Apply barrier cream twice daily and prn for episodes of incontinence. Ensure cream is Zinc based or Dimethicone based for best results. Care Plan Goals: Hold Xarelto as above Health Concerns: Alzheimer's dementia. Plan of Treatment: Outpatient follow-up with Dr. Hutson in 1 week Outpatient follow-up Dr. Correia call for appointment for CBD stones for possible outpatient ERCP Assessment: As above
[2024-06-20 16:00] VITALS: BP 128/72; PULSE 110; RESP 18; TEMP 36.4; O2SAT 97
== END 2024-06-20 19:00 | disposition skilled nursing facility (03) | DRG 326 ==
LOC: HO.ED 15:34 → HO.EDOVER 17:29 → HO.IMC 06-11 01:48
PROVIDERS: Internal Medicine; Physician Assistant; Surgery; Admitting Provider Physician Assistant; Emergency Provider Emergency Medicine; PCP Internal Medicine; Visit Provider Hospitalist
PROC: 0DBH8ZX Excision of Cecum, Via Natural or Artificial Opening Endoscopic, Diagnostic (ICD-10-PCS; principal; 2024-06-14 14:00)
PROC: 0DBH8ZX Excision of Cecum, Via Natural or Artificial Opening Endoscopic, Diagnostic (ICD-10-PCS; CPT 43260; 2024-06-14 14:00)
PROC: 0DQ90ZZ Repair Duodenum, Open Approach (ICD-10-PCS; CPT 49000; 2024-06-14 14:00)
DX: K31.7 Polyp of stomach and duodenum (principal); G92.8 Other toxic encephalopathy; K57.31 Diverticulosis of large intestine without perforation or abscess with bleeding; K29.71 Gastritis, unspecified, with bleeding; D62 Acute posthemorrhagic anemia; F02.83 Dementia in other diseases classified elsewhere, unspecified severity, with mood disturbance; K91.71 Accidental puncture and laceration of a digestive system organ or structure during a digestive system procedure; K52.1 Toxic gastroenteritis and colitis; Y83.8 Other surgical procedures as the cause of abnormal reaction of the patient, or of later complication, without mention of misadventure at the time of the procedure; T36.95XA Adverse effect of unspecified systemic antibiotic, initial encounter; K64.4 Residual hemorrhoidal skin tags; E87.6 Hypokalemia; K64.8 Other hemorrhoids; K44.9 Diaphragmatic hernia without obstruction or gangrene; T40.605A Adverse effect of unspecified narcotics, initial encounter; D12.0 Benign neoplasm of cecum; K21.9 Gastro-esophageal reflux disease without esophagitis; K80.50 Calculus of bile duct without cholangitis or cholecystitis without obstruction; G30.9 Alzheimer's disease, unspecified; G62.9 Polyneuropathy, unspecified; Z87.440 Personal history of urinary (tract) infections; Z85.3 Personal history of malignant neoplasm of breast; Z22.358 Carrier of other Enterobacterales; Z86.711 Personal history of pulmonary embolism; Z79.01 Long term (current) use of anticoagulants; Z79.899 Other long term (current) drug therapy
CPT/HCPCS: 36415; 74177; 74181; 80048; 80053; 80076; 81001; 82040; 82272; 83690; 83735; 84100; 84478; 84484; 85014; 85018; 85025; 85027; 85610; 85730; 86850; 86870; 86880; 86900; 86901; 86920; 86922; 87086; 87088; 87186; 87493; 88305; 88313; 93005; 97116; 97162; 99285; C1758; C1769; J0131; J0690; J1100; J1170; J1335; J1610; J2270; J2405; J2470; J2543; J2704; J2795; J3010; J7120; P9016; Q9967

== ENCOUNTER → 2024-06-10 17:15 | Outpatient (BNV) | payer MEDICARE, SELFPAY | PROVIDERS: Admitting Provider Physician Assistant; Emergency Provider Emergency Medicine; PCP Internal Medicine; Visit Provider Physician Assistant | DX: K63.1 Perforation of intestine (nontraumatic) (principal) | CPT/HCPCS: 99223; 99232; 99233; 99239 ==

== ENCOUNTER → 2024-06-10 17:15 | Outpatient (BNV) | payer MEDICARE, SELFPAY | PROVIDERS: Admitting Provider Physician Assistant; Emergency Provider Emergency Medicine; PCP Internal Medicine; Visit Provider Surgery | DX: K63.1 Perforation of intestine (nontraumatic) (principal) | CPT/HCPCS: 43840; 49905; 99024; 99222; 99232 ==

== ENCOUNTER 2024-06-28 13:01 | Outpatient (AMB) | payer MEDICARE, SELFPAY ==
--- NOTE | 2024-06-28 13:14 | A.OFFVIS_ITS ---
Vital Signs 06/28/24 13:16 Height 5 ft 4 in Weight 125 lb 10.616 oz BMI 21.6 BP 122/82 Blood Pressure Location Lt brachial Position Sitting Intake Visit Reasons: s/p exp lap Intake Note: Patient is seen in office for post op assessment post exploratory laparotomy. Pt c/o: no concerns, bettina removed at visit surgery: 06/14/24 Professor Of Art Required: No Accompanied by: Self / Same As Patient Allergies sulfamethoxazole [From Bactrim] Allergy (Severe, Verified 06/28/24 13:15) Itching trimethoprim [From Bactrim] Allergy (Severe, Verified 06/28/24 13:15) Itching cortisone [Cortisone] Allergy (Mild, Verified 06/28/24 13:15) PT STATES, hx TB IT COULD AFFECT CRYSTALS IN LUNG prochlorperazine [From Compazine] Allergy (Mild, Verified 06/28/24 13:15) LEG NUMBNESS hydrochlorothiazide Allergy (Unknown, Verified 06/28/24 13:15) RASH levofloxacin [Levaquin] Allergy (Unknown, Verified 06/28/24 13:15) Wakefulness, nausea, shaking Sulfa (Sulfonamide Antibiotics) Adverse Reaction (Intermediate, Verified 06/28/24 13:15) rash codeine Adverse Reaction (Unknown, Verified 06/28/24 13:15) NAUSEA/VOMITING chocolate Allergy (Unknown, Uncoded 06/28/24 13:15) severe headaches/vomiting Medication List - Last Reconciled 06/28/24 by Jose Angel Hutson MD folic acid 0.8 mg PO DAILY gabapentin 300 mg PO BEDTIME 90 days metoprolol tartrate 12.5 mg (1/2 x 25 mg) PO BID 90 days omeprazole 40 mg PO BID@0630,1630 quetiapine (Seroquel) 25 mg PO DAILY [right mastectomy bra As directed] rivaroxaban (Xarelto) 20 mg PO BEDTIME HPI Comments Details: 83-year-old female patient returning following a recent admission for a duodenal perforation during an endoscopy procedure. She has a prior history of left breast CA treated by Dr. Guevara in 2006. She subsequently underwent a lumpectomy followed by mastectomy. She returns today for postop evaluation following the exploratory laparotomy and repair of duodenal perforation. Overall she feels well with no nausea or vomiting. She is tolerating p.o. but does not like the food at the group home. She is planning on discharge to home tomorrow. She denies fever or chills. [facility] Medical History Pressure ulcer Chronic bacteriuria Urinary incontinence Bilateral hip pain Venous insufficiency of both lower extremities Bilateral knee pain Arthritis of lumbosacral spine Chronic diarrhea TIA (transient ischemic attack) UTI (urinary tract infection) Hallucination Confusion Diarrhea Supratherapeutic INR Weakness Cognitive change Pernicious anemia Osteoporosis Peripheral neuropathy Impaired fasting glucose Irritable bowel syndrome Breast cancer Thrombocytopenia Hypomagnesemia Hx of hypercalcemia History of alcohol use B12 deficiency Fatty liver, alcoholic HTN (hypertension) Hx of metabolic acidosis GERD (gastroesophageal reflux disease) Hx of deep venous thrombosis Hx of tuberculosis History of pulmonary embolism History of right breast cancer Osteoarthritis of left knee Surgical History Hx of exploratory laparotomy (06/14/24) History of left knee surgery History of arthroplasty of left knee Hx of adenoidectomy History of esophagogastroduodenoscopy (EGD) History of evacuation of hematoma Hx of colonoscopy History of cataract surgery History of cystoscopy History of knee replacement procedure of right knee History of lumpectomy of right breast History of tonsillectomy H/O right mastectomy S/P SASHA-BSO (total abdominal hysterectomy and bilateral salpingo-oophorectomy) History of appendectomy Family History Father No problems noted. Mother No problems noted. Other No family history of cancer Social History Household Members: Spouse Housing: House Are you a primary critical care clinical nurse specialist to a significant other at home: No Do you presently have visiting nurse or other home services: No Alcohol intake: former Comment: see RN note Patient Tobacco Use Status: Never used Tobacco e-Cigarette/Vaping Use: Never Used Second Hand Smoke Exposure: No Advance Directives Date on File: 12/24/21 service: No Current occupational status: retired Cognitive needs: No Hearing needs: No Vision needs: Yes Physical Exam Vital Signs: Last Vital Signs BP 122/82 06/28/24 13:16 BMI result Body Mass Index 21.6 Const General: no acute distress Nutritional Appearance: well nourished Orientation/consciousness: patient oriented x3 Resp Effort & Inspection: normal respiratory effort, no audible wheezes, no cough and no respiratory distress GI Other: Soft, nondistended, well-healed subcostal incision on the right side with no hernia or infection. Skin Other: Warm, dry, no rash Neuro General: patient oriented x3 Assessment & Plan Assessment & Plan (1) Duodenal perforation: Comment: Duodenal perforation June 14 2024 exploratory laparotomy removal of duodenal polyp repair of duodenal perforation and omental patch Dr. Hutson Code(s): K63.1 - Perforation of intestine (nontraumatic) Category: Medical (2) Cholelithiasis: Code(s): K80.20 - Calculus of gallbladder without cholecystitis without obstruction Category: Medical Qualifiers: Cholelithiasis location: gallbladder and bile duct (3) Choledocholithiasis: Code(s): K80.50 - Calculus of bile duct without cholangitis or cholecystitis without obstruction Category: Medical Plan 83-year-old female returning following repair of a duodenal perforation. The patient also was found to have choledocholithiasis which he has been asymptomatic. A normal gallbladder was identified during the exploratory laparotomy. I reviewed the findings in detail with the patient and her family. I recommended no surgical intervention at this time for the choledocholithiasis or gallbladder. She should return should she develop gallbladder symptoms. She will follow-up for her regularly scheduled breast examination in October 2024. She is welcome to call sooner for any new concerns. Coding Level of Care Code Global (19268) Diagnoses Duodenal perforation K63.1 Cholelithiasis K80.20 Cholelithiasis location: gallbladder and bile duct Choledocholithiasis K80.50
[2024-06-28 13:16] VITALS: BP 122/82; BMI 21.6
== END 2024-06-28 13:44 | disposition home or self-care (01) ==
PROVIDERS: PCP Internal Medicine; Visit Provider Surgery
DX: K63.1 Perforation of intestine (nontraumatic) (principal); K80.20 Calculus of gallbladder without cholecystitis without obstruction; K80.50 Calculus of bile duct without cholangitis or cholecystitis without obstruction
CPT/HCPCS: 99024

== ENCOUNTER → 2024-06-28 13:01 | Outpatient (BNVA) | payer MEDICARE, SELFPAY | PROVIDERS: PCP Internal Medicine; Visit Provider Surgery | DX: K63.1 Perforation of intestine (nontraumatic) (principal); K80.20 Calculus of gallbladder without cholecystitis without obstruction; K80.50 Calculus of bile duct without cholangitis or cholecystitis without obstruction | CPT/HCPCS: 99212 ==

== ENCOUNTER 2024-07-11 08:48 | Outpatient (AMB) | payer MEDICARE, SELFPAY ==
--- NOTE | 2024-07-11 08:55 | MHC.OFFVIS ---
Intake Visit Reasons: wound check Intake Note: Patient seen for wound care. S/p exploratory laparotomy. Patient c/o: pain and drainage at suture site, burning sensation that spreads to rt upper abdomen. Telecommunications Field Engineer Required: No Accompanied by: Spouse Allergies sulfamethoxazole [From Bactrim] Allergy (Severe, Verified 07/11/24 08:56) Itching trimethoprim [From Bactrim] Allergy (Severe, Verified 07/11/24 08:56) Itching cortisone [Cortisone] Allergy (Mild, Verified 07/11/24 08:56) PT STATES, hx TB IT COULD AFFECT CRYSTALS IN LUNG prochlorperazine [From Compazine] Allergy (Mild, Verified 07/11/24 08:56) LEG NUMBNESS hydrochlorothiazide Allergy (Unknown, Verified 07/11/24 08:56) RASH levofloxacin [Levaquin] Allergy (Unknown, Verified 07/11/24 08:56) Wakefulness, nausea, shaking Sulfa (Sulfonamide Antibiotics) Adverse Reaction (Intermediate, Verified 07/11/24 08:56) rash codeine Adverse Reaction (Unknown, Verified 07/11/24 08:56) NAUSEA/VOMITING chocolate Allergy (Unknown, Uncoded 07/11/24 08:56) severe headaches/vomiting HPI Comments Details: Patient presents with her . She is status post exploratory laparotomy for duodenal perforation repair. She has had bouts of occasional back and upper quadrant pain. She is tolerating a diet. Serum regular bowel habits. Patient is very slowly increasing her activity level. She is known to me from prior recent hospitalization [facility] Medical History Pressure ulcer Chronic bacteriuria Urinary incontinence Bilateral hip pain Venous insufficiency of both lower extremities Bilateral knee pain Arthritis of lumbosacral spine Chronic diarrhea TIA (transient ischemic attack) UTI (urinary tract infection) Hallucination Confusion Diarrhea Supratherapeutic INR Weakness Cognitive change Pernicious anemia Osteoporosis Peripheral neuropathy Impaired fasting glucose Irritable bowel syndrome Breast cancer Thrombocytopenia Hypomagnesemia Hx of hypercalcemia History of alcohol use B12 deficiency Fatty liver, alcoholic HTN (hypertension) Hx of metabolic acidosis GERD (gastroesophageal reflux disease) Hx of deep venous thrombosis Hx of tuberculosis History of pulmonary embolism History of right breast cancer Osteoarthritis of left knee Surgical History Hx of exploratory laparotomy (06/14/24) History of left knee surgery History of arthroplasty of left knee Hx of adenoidectomy History of esophagogastroduodenoscopy (EGD) History of evacuation of hematoma Hx of colonoscopy History of cataract surgery History of cystoscopy History of knee replacement procedure of right knee History of lumpectomy of right breast History of tonsillectomy H/O right mastectomy S/P SASHA-BSO (total abdominal hysterectomy and bilateral salpingo-oophorectomy) History of appendectomy Family History Father No problems noted. Mother No problems noted. Other No family history of cancer Social History Household Members: Spouse Housing: House Are you a primary career center advisor to a significant other at home: No Do you presently have visiting nurse or other home services: No Alcohol intake: former Comment: see RN note Patient Tobacco Use Status: Never used Tobacco e-Cigarette/Vaping Use: Never Used Second Hand Smoke Exposure: No Advance Directives Date on File: 12/24/21 service: No Current occupational status: retired Cognitive needs: No Hearing needs: No Vision needs: Yes Physical Exam Eyes Other: Anicteric GI Other: Abdomen is soft, benign. Incision clean dry and intact healing very well Assessment & Plan Assessment & Plan (1) Postop check: Code(s): Z09 - Encounter for follow-up examination after completed treatment for conditions other than malignant neoplasm Category: Surgical (2) Duodenal perforation: Comment: Duodenal perforation June 14 2024 exploratory laparotomy removal of duodenal polyp repair of duodenal perforation and omental patch Dr. Hutson Code(s): K63.1 - Perforation of intestine (nontraumatic) Category: Surgical Plan At present, patient was reassured that she is still early in the convalescence of her surgery. It will taken other 6-8 weeks before she has fully healed. In the meantime, she needs to follow-up with her plastic tubing insulation supervisor regarding her choledocholithiasis. This most likely would not be addressed in the near future until she has fully healed from the above-mentioned surgery. In the meantime, patient was encouraged to increase her activity level, diet as tolerated, and she will see Dr. Hutson when he returns for follow-up or p.r.n.. All questions answered. Coding Level of Care Code Global (58493) Diagnoses Postop check Z09 Duodenal perforation K63.1
== END 2024-07-11 09:21 | disposition home or self-care (01) ==
PROVIDERS: PCP Internal Medicine; Visit Provider Surgery
DX: Z09 Encounter for follow-up examination after completed treatment for conditions other than malignant neoplasm (principal); K63.1 Perforation of intestine (nontraumatic)
CPT/HCPCS: 99024

== ENCOUNTER → 2024-07-11 08:48 | Outpatient (BNVA) | payer MEDICARE, SELFPAY | PROVIDERS: PCP Internal Medicine; Visit Provider Surgery | DX: Z09 Encounter for follow-up examination after completed treatment for conditions other than malignant neoplasm (principal); K63.0 Abscess of intestine | CPT/HCPCS: 99212 ==

== ENCOUNTER 2024-07-27 10:26 | Outpatient (AMB) | payer MEDICARE, SELFPAY ==
--- NOTE | 2024-07-27 10:27 | A.OFFVIS_ITS ---
Vital Signs 07/27/24 10:28 Height 5 ft 4 in Weight 122 lb BMI 20.9 BP 114/57 L Blood Pressure Location Lt brachial Position Sitting Pulse 95 Intake Visit Reasons: wound check Intake Note: Patient is seen in office for wound check, post op assessment post exploratory laparotomy. Pt c/o: healing as expected, sore at times, discomfort when wearing clothes over the incision that radiates to the back Project Geologist Required: No Accompanied by: Self / Same As Patient Allergies sulfamethoxazole [From Bactrim] Allergy (Severe, Verified 07/27/24 10:28) Itching trimethoprim [From Bactrim] Allergy (Severe, Verified 07/27/24 10:28) Itching cortisone [Cortisone] Allergy (Mild, Verified 07/27/24 10:28) PT STATES, hx TB IT COULD AFFECT CRYSTALS IN LUNG prochlorperazine [From Compazine] Allergy (Mild, Verified 07/27/24 10:28) LEG NUMBNESS hydrochlorothiazide Allergy (Unknown, Verified 07/27/24 10:28) RASH levofloxacin [Levaquin] Allergy (Unknown, Verified 07/27/24 10:28) Wakefulness, nausea, shaking Sulfa (Sulfonamide Antibiotics) Adverse Reaction (Intermediate, Verified 07/27/24 10:28) rash codeine Adverse Reaction (Unknown, Verified 07/27/24 10:28) NAUSEA/VOMITING chocolate Allergy (Unknown, Uncoded 07/27/24 10:28) severe headaches/vomiting Medication List - Last Reconciled 07/27/24 by Jose Angel Hutson MD folic acid 0.8 mg PO DAILY gabapentin 300 mg PO BEDTIME 90 days ibuprofen 800 mg PO Q8H PRN metoprolol tartrate 12.5 mg (1/2 x 25 mg) PO BID 90 days nitrofurantoin monohyd/m-cryst 100 mg (Macrobid) 100 mg PO Q12H 7 days omeprazole 40 mg PO BID@0630,1630 quetiapine (Seroquel) 25 mg PO DAILY [right mastectomy bra As directed] rivaroxaban (Xarelto) 20 mg PO BEDTIME HPI Comments Details: 83-year-old female patient with a previous history of breast cancer status post right mastectomy, recently underwent exploratory laparotomy for perforation of the duodenum during an endoscopy. This was repaired with a Valentín patch. She feels much improved today and denies any ongoing abdominal symptoms other than some occasional discomfort along the right lower abdomen. She is eating well and reports normal bowel movements. Denies any fever or chills. She reports being scheduled for a mammogram in 11/12/2024. [facility] Medical History Pressure ulcer Chronic bacteriuria Urinary incontinence Bilateral hip pain Venous insufficiency of both lower extremities Bilateral knee pain Arthritis of lumbosacral spine Chronic diarrhea TIA (transient ischemic attack) UTI (urinary tract infection) Hallucination Confusion Diarrhea Supratherapeutic INR Weakness Cognitive change Pernicious anemia Osteoporosis Peripheral neuropathy Impaired fasting glucose Irritable bowel syndrome Breast cancer Thrombocytopenia Hypomagnesemia Hx of hypercalcemia History of alcohol use B12 deficiency Fatty liver, alcoholic HTN (hypertension) Hx of metabolic acidosis GERD (gastroesophageal reflux disease) Hx of deep venous thrombosis Hx of tuberculosis History of pulmonary embolism History of right breast cancer Osteoarthritis of left knee Surgical History Hx of exploratory laparotomy (06/14/24) History of left knee surgery History of arthroplasty of left knee Hx of adenoidectomy History of esophagogastroduodenoscopy (EGD) History of evacuation of hematoma Hx of colonoscopy History of cataract surgery History of cystoscopy History of knee replacement procedure of right knee History of lumpectomy of right breast History of tonsillectomy H/O right mastectomy S/P SASHA-BSO (total abdominal hysterectomy and bilateral salpingo-oophorectomy) History of appendectomy Family History Father No problems noted. Mother No problems noted. Other No family history of cancer Social History Household Members: Spouse Housing: House Are you a primary lawn care worker to a significant other at home: No Do you presently have visiting nurse or other home services: No Alcohol intake: former Comment: see RN note Patient Tobacco Use Status: Never used Tobacco e-Cigarette/Vaping Use: Never Used Second Hand Smoke Exposure: No Advance Directives Date on File: 12/24/21 service: No Current occupational status: retired Cognitive needs: No Hearing needs: No Vision needs: Yes Physical Exam Vital Signs: Last Vital Signs Pulse 95 07/27/24 10:28 BP 114/57 L 07/27/24 10:28 BMI result Body Mass Index 20.9 Const General: comfortable Nutritional Appearance: well nourished Orientation/consciousness: patient oriented x3 Resp Effort & Inspection: normal respiratory effort GI Other: Well-healed subcostal incision right side. No hernia noted with Valsalva maneuvers. Palpation (GI): Soft to palpation, nontender, no guarding and not rigid Neuro General: patient oriented x3 Extrem General: Yes normal to inspection Assessment & Plan Assessment & Plan (1) Duodenal perforation: Comment: Duodenal perforation June 14 2024 exploratory laparotomy removal of duodenal polyp repair of duodenal perforation and omental patch Dr. Hutson Code(s): K63.1 - Perforation of intestine (nontraumatic) Category: Surgical Plan Patient continues to improve following exploratory laparotomy for duodenal perforation. She may resume normal activity without restrictions. She will follow-up in October for routine breast examination following her next mammogram. Coding Level of Care Code Global (93607) Diagnoses Duodenal perforation K63.1
[2024-07-27 10:28] VITALS: BP 114/57; PULSE 95; BMI 20.9
== END 2024-07-27 10:42 | disposition home or self-care (01) ==
PROVIDERS: PCP Internal Medicine; Visit Provider Surgery
DX: K63.1 Perforation of intestine (nontraumatic) (principal)
CPT/HCPCS: 99024

== ENCOUNTER → 2024-07-27 10:26 | Outpatient (BNVA) | payer MEDICARE, SELFPAY | PROVIDERS: PCP Internal Medicine; Visit Provider Surgery | DX: Z09 Encounter for follow-up examination after completed treatment for conditions other than malignant neoplasm (principal); Z87.19 Personal history of other diseases of the digestive system; Z90.11 Acquired absence of right breast and nipple; Z85.3 Personal history of malignant neoplasm of breast | CPT/HCPCS: 99212 ==

== ENCOUNTER 2024-08-03 14:22 | Outpatient (AMB) | payer MEDICARE, SELFPAY ==
[2024-08-03 14:34] VITALS: BP 124/64; PULSE 81; O2SAT 97; BMI 20.4
--- NOTE | 2024-08-03 14:34 | MHC.PC.OV ---
Vital Signs 08/03/24 14:34 Height 5 ft 4 in Weight 119 lb 2 oz BMI 20.4 BP 124/64 Blood Pressure Location Lt brachial Position Sitting Pulse 81 Pulse Source Pulse Oximeter Pulse Oximetry (%) 97 Oxygen Delivery Method Room Air Intake Visit Reasons: gerd, hx of breast cancer - see comments Intake Note: Patient is here to follow up on GERD, Hx of Breast Cancer. Director Learning Required: No Wheel Alignment Mechanic: Not Required per policy Accompanied by: Spouse Allergies sulfamethoxazole [From Bactrim] Allergy (Severe, Verified 08/03/24 14:42) Itching trimethoprim [From Bactrim] Allergy (Severe, Verified 08/03/24 14:42) Itching cortisone [Cortisone] Allergy (Mild, Verified 08/03/24 14:42) PT STATES, hx TB IT COULD AFFECT CRYSTALS IN LUNG prochlorperazine [From Compazine] Allergy (Mild, Verified 08/03/24 14:42) LEG NUMBNESS hydrochlorothiazide Allergy (Unknown, Verified 08/03/24 14:42) RASH levofloxacin [Levaquin] Allergy (Unknown, Verified 08/03/24 14:42) Wakefulness, nausea, shaking Sulfa (Sulfonamide Antibiotics) Adverse Reaction (Intermediate, Verified 08/03/24 14:42) rash codeine Adverse Reaction (Unknown, Verified 08/03/24 14:42) NAUSEA/VOMITING chocolate Allergy (Unknown, Uncoded 08/03/24 14:42) severe headaches/vomiting Tobacco use date assessed: 03/16/24 Fall risk assessment: No Falls in past year Last assessed Fall Risk: 08/03/24 Dental Screening Dental Screen Date: 12/14/23 HPI gerd, hx of breast cancer - see comments HPI Details 83-year-old female with multiple medical problems hypertension, impaired glucose tolerance, right breast cancer history, GERD, lumbar spondylosis hypercholesterolemia, peripheral vascular disease last seen in April 2024. Review of the notes had a history of duodenal perforation during endoscopy and had a repair under the surgeon with a g patch.. Patient was admitted in April 2024 due to an acute upper GI bleed having anticoagulation EGD was done due to a pyloric circumferential wall thickening. ERCP done complication of perforation in 2nd portion of the duodenum. [facility] Medical History Pressure ulcer Chronic bacteriuria Urinary incontinence Bilateral hip pain Venous insufficiency of both lower extremities Bilateral knee pain Arthritis of lumbosacral spine Chronic diarrhea TIA (transient ischemic attack) UTI (urinary tract infection) Hallucination Confusion Diarrhea Supratherapeutic INR Weakness Cognitive change Pernicious anemia Osteoporosis Peripheral neuropathy Impaired fasting glucose Irritable bowel syndrome Breast cancer Thrombocytopenia Hypomagnesemia Hx of hypercalcemia History of alcohol use B12 deficiency Fatty liver, alcoholic HTN (hypertension) Hx of metabolic acidosis GERD (gastroesophageal reflux disease) Hx of deep venous thrombosis Hx of tuberculosis History of pulmonary embolism History of right breast cancer Osteoarthritis of left knee Surgical History Hx of exploratory laparotomy (06/14/24) History of left knee surgery History of arthroplasty of left knee Hx of adenoidectomy History of esophagogastroduodenoscopy (EGD) History of evacuation of hematoma Hx of colonoscopy History of cataract surgery History of cystoscopy History of knee replacement procedure of right knee History of lumpectomy of right breast History of tonsillectomy H/O right mastectomy S/P SASHA-BSO (total abdominal hysterectomy and bilateral salpingo-oophorectomy) History of appendectomy Family History Father No problems noted. Mother No problems noted. Other No family history of cancer Social History Household Members: Spouse Housing: House Are you a primary patient care coordinator to a significant other at home: No Do you presently have visiting nurse or other home services: No Alcohol intake: former Comment: see RN note Patient Tobacco Use Status: Never used Tobacco e-Cigarette/Vaping Use: Never Used Second Hand Smoke Exposure: No Advance Directives Date on File: 12/24/21 service: No Current occupational status: retired Cognitive needs: No Hearing needs: No Vision needs: Yes Questionnaire PHQ-9 Over the last 2 weeks, how often have you been bothered by any of the following problems? 1. Little interest or pleasure in doing things: not at all 2. Feeling down, depressed, or hopeless: not at all 3. Trouble falling or staying asleep, or sleeping too much: not at all 4. Feeling tired or having little energy: not at all 5. Poor appetite or overeating: not at all 6. Feeling bad about yourself - or that you are a failure or have let yourself or your family down: not at all 7. Trouble concentrating on things, such as reading the newspaper or watching television: not at all 8. Moving or speaking so slowly that other people could have noticed. Or the opposite - being so fidgety or restless that you have been moving around a lot more than usual: not at all 9. Thoughts that you would be better off or of hurting yourself in some way: not at all Total score: 0 Depression Screening Interpretation: Negative Depression Screening Done: Yes Source: Developed by Drs. Praful Kohler, Jj Mast and colleagues, with an educational bharti from [employer]. Thrive Questionnaire Date Thrive assessed: 06/11/24 Are you currently unemployed and looking for a job?: No CEDRIC-7 AMB Questionnaire CEDRIC-7 Date CEDRIC - 7 assessed: 08/03/24 Feeling nervous, anxious, or on edge: 0 = Not at all Not being able to stop or control worryin = Not at all Worrying too much about different things: 0 = Not at all Trouble relaxin = Not at all Being so restless that it is hard to sit still: 0 = Not at all Becoming easily annoyed or irritable: 0 = Not at all Feeling afraid as if something awful might happen: 0 = Not at all Total CEDRIC-7 score (0-4 normal; 5-9 mild; 10-14 moderate; 15-21 severe): 0 Source: Developed by Drs. Praful Kohler, Jj Mast and colleagues, with an educational bharti from [employer]. Physical exam (Primary Care) Vital Signs: Last Vital Signs Pulse 81 08/03/24 14:34 BP 124/64 08/03/24 14:34 Pulse Ox 97 08/03/24 14:34 Oxygen Delivery Method Room Air 08/03/24 14:34 BMI result Body Mass Index 20.4 Tobacco/Smoking Status: Tobacco use Status Tobacco use date assessed 03/16/24 08/03/24 14:45 Patient Tobacco Use Status Never used Tobacco 08/03/24 14:45 e-Cigarette/Vaping Use Never Used 08/03/24 14:45 PHQ-9: PHQ-9 Score PHQ-9: Total score 0 08/03/24 14:56 Depression Screening Interpretation: Negative Thrive Assessment: Date of Thrive Assessment Date Thrive assessed 06/11/24 08/03/24 14:45 Const General: alert; No acute distress Eyes Conjunctivae: conjunctivae normal Resp Auscultation: clear to auscultation bilaterally Cardio Rate: regular rate Rhythm: regular rhythm GI Inspection: Yes normal to inspection Extrem General: Yes normal to inspection and No edema Office Procedures Flu Questionnaire Does the patient have a severe egg allergy?: No Does the patient have severe life threatening allergies?: No Does the patient have a fever or illness today?: No Has the patient ever had Guillain-[place] Syndrome?: No Has the patient ever had any past reaction to a flu shot?: No Immunizations Fluarix Triv [id number] (PF) 45 mcg (15 mcg x 3)/0.5 mL IM syringe Performing Provider: Vinicius Burnett MD [facility] Administered by: HEATHER Cardona on 08/03/24 15:16 Dose Route Admin Location Dispensed Lot Number Expiration Date [facility] Ge[employer] Diver 0.5 mL IM Left Deltoid 0.5 mL [id number] 04/22/25 [id number] [employer] VIS Given Date VIS Provided VIS Publication Date 08/03/24 Single Vaccine 21 Eligibility Eligibility Date Funding Source Not [facility] Eligible 08/03/24 Private Coding Level of Care Code Est Pt Level 4 (02275) Complex EM visit Add On G2211 Diagnoses Duodenal perforation K63.1 Upper GI bleed K92.2 History of pulmonary embolism Z86.711 Hypercholesterolemia E78.00 History of right breast cancer Z85.3 GERD (gastroesophageal reflux disease) K21.9 Impaired fasting glucose R73.01 Essential hypertension I10 Hypertension type: essential hypertension Assessment & Plan Assessment & Plan (1) Duodenal perforation: Comment: Duodenal perforation June 14 2024 exploratory laparotomy removal of duodenal polyp repair of duodenal perforation and omental patch Dr. Hutson Code(s): K63.1 - Perforation of intestine (nontraumatic) Category: Surgical Plan: Status post explore lap with Valentín patch (2) Upper GI bleed: Code(s): K92.2 - Gastrointestinal hemorrhage, unspecified Category: Medical Plan: Continuing to monitor blood count (3) History of pulmonary embolism: Code(s): Z86.711 - Personal history of pulmonary embolism Category: Medical Plan: On Xarelto 20 mg once a day (4) Hypercholesterolemia: Code(s): E78.00 - Pure hypercholesterolemia, unspecified Category: Medical Plan: Avoid fried foods, chicken skin, eggs, butter margarine, pastries and meat. Be it pork or beef they have a lot of cholesterol will continue to monitor for now (5) History of right breast cancer: Comment: 2006 lumpectomy and chemotherapy Code(s): Z85.3 - Personal history of malignant neoplasm of breast Category: Medical Plan: Continue to follow-up with Hematology-Oncology (6) GERD (gastroesophageal reflux disease): Comment: Albarran's esophagus, April 2014 EGD moderate GERD 2019 Code(s): K21.9 - Gastro-esophageal reflux disease without esophagitis Category: Medical Plan: Avoid the foods that causes that usually spicy foods, tomato products, juices, coffee, soda and foods that your sensitive to. After eating do not lie down, allow 3-4 hours before in lie down. And keep the head of bed above 30 degrees to avoid the acid from going up. (7) Impaired fasting glucose: Code(s): R73.01 - Impaired fasting glucose Category: Medical Plan: Decrease the amount of carbohydrate intake, pasta, bread, rice and potatoes are all sugar and that is aside from all the sweet stuff, remember that fruits are good but they are Sweet also. (8) HTN (hypertension): Code(s): I10 - Essential (primary) hypertension Category: Medical Qualifiers: Hypertension type: essential hypertension Qualified Code(s): I10 - Essential (primary) hypertension Plan: Continue with blood pressure medication. Decrease salt intake and exercise on metoprolol 12.5 mg twice a day Orders: Orders Complete Blood Count Auto Diff Today K63.1 - Perforation of intestine (nontraumatic) Ferritin Today K63.1 - Perforation of intestine (nontraumatic) Reticulocyte Count Today K63.1 - Perforation of intestine (nontraumatic) Comprehensive Met. Panel Today K63.1 - Perforation of intestine (nontraumatic) Influenza [id number] Immunization Today Z23 - Encounter for immunization IRON PROFILE Today K63.1 - Perforation of intestine (nontraumatic) Vitamin B12 and Folate Today K63.1 - Perforation of intestine (nontraumatic) Medications: New Fluarix Triv [id number] (PF) (flu vacc [id number] 6mos up(PF)) 0.5 mL IM ONCE 0.5 mL 0RF NS Z23 - Encounter for immunization Discontinued ibuprofen Discontinued Reason: Doctor's Order 800 mg PO Q8H PRN 20 tabs 0RF pain
== END 2024-08-03 15:48 | disposition home or self-care (01) ==
PROVIDERS: PCP Internal Medicine; Visit Provider Internal Medicine
DX: K63.1 Perforation of intestine (nontraumatic) (principal); K92.2 Gastrointestinal hemorrhage, unspecified; Z86.711 Personal history of pulmonary embolism; E78.00 Pure hypercholesterolemia, unspecified; Z85.3 Personal history of malignant neoplasm of breast; K21.9 Gastro-esophageal reflux disease without esophagitis; R73.01 Impaired fasting glucose; I10 Essential (primary) hypertension; Z23 Encounter for immunization

== ENCOUNTER → 2024-08-03 14:22 | Outpatient (BNVA) | payer MEDICARE, SELFPAY | PROVIDERS: PCP Internal Medicine; Visit Provider Internal Medicine | DX: Z23 Encounter for immunization (principal); K63.1 Perforation of intestine (nontraumatic); K92.2 Gastrointestinal hemorrhage, unspecified; E78.00 Pure hypercholesterolemia, unspecified; K21.9 Gastro-esophageal reflux disease without esophagitis; R73.01 Impaired fasting glucose; I10 Essential (primary) hypertension; Z86.711 Personal history of pulmonary embolism; Z85.3 Personal history of malignant neoplasm of breast | CPT/HCPCS: 90471; 90656; 96127; 99212 ==

== ENCOUNTER 2024-09-17 09:45 | Outpatient (REF) | payer MEDICARE, SELFPAY ==
--- NOTE | ~2024-09-17 | MM_ITS ---
EXAMINATION: MM SCREENING DIGITAL BREAST TOMOSYNTHESIS, BILATERAL CLINICAL INFORMATION: Screening. Asymptomatic. Right mastectomy. COMPARISON: Mammography: This study is compared with prior exams dating back to TECHNIQUE: Digital breast tomosynthesis is performed in both the craniocaudal and mediolateral oblique views along with computer-aided detection (CAD). Synthesized 2D images are generated from the tomosynthesis. FINDINGS: There are scattered areas of fibroglandular density (ACR BI-RADS breast composition Category b). There are no significant masses, abnormal calcifications, or other abnormalities. MM/MM tomosynthesis screening LT IMPRESSION: No mammographic evidence of malignancy. ASSESSMENT: BI-RADS BI-RADS 1 - Negative RECOMMENDATION: Routine annual mammography screening. 1 year F/U This examination should not preclude the clinical evaluation of a suspicious palpable abnormality. This patient's information was entered into a reminder system with a target due date for their next mammogram. Electronically signed by: Sarah Cano DO 09/24/2024 09:09 AM [place]
== END 2024-09-17 09:46 | disposition home or self-care (01) ==
LOC: HO.MAMMO 09:45
PROVIDERS: PCP Internal Medicine; Referring Provider Internal Medicine Medical Oncology; Visit Provider Internal Medicine
DX: Z12.31 Encounter for screening mammogram for malignant neoplasm of breast (principal)
CPT/HCPCS: 77063; 77067

== ENCOUNTER → 2024-09-17 10:00 | Outpatient (BNV) | payer MEDICARE, SELFPAY | PROVIDERS: PCP Internal Medicine; Referring Provider Internal Medicine Medical Oncology; Visit Provider Internal Medicine | DX: Z12.31 Encounter for screening mammogram for malignant neoplasm of breast (principal) | CPT/HCPCS: 77063; 77067 ==

== ENCOUNTER 2024-10-16 09:59 | Outpatient (REF) | payer MEDICARE, SELFPAY | END 2024-10-16 10:00 | disposition home or self-care (01) | LOC: HO.MRI 09:59 | PROVIDERS: PCP Internal Medicine; Visit Provider Internal Medicine Gastroenterology | DX: K80.50 Calculus of bile duct without cholangitis or cholecystitis without obstruction (principal) | CPT/HCPCS: 74181 ==

== ENCOUNTER → 2024-10-16 10:40 | Outpatient (BNV) | payer MEDICARE, SELFPAY | PROVIDERS: PCP Internal Medicine; Visit Provider Radiology Diagnostic Radiology | DX: K80.50 Calculus of bile duct without cholangitis or cholecystitis without obstruction (principal) | CPT/HCPCS: 74181 ==

== ENCOUNTER 2024-11-23 14:21 | Outpatient (AMB) | payer MEDICARE, SELFPAY ==
--- OUTSIDE RECORDS SUMMARY | 2024-11-23 14:23 | XMS_ITS ---
Author Organization [facility] Address Unknown Allergies, Adverse Reactions, Alerts Substance Reaction Status Noted Date Resolved Date Trimethoprim active 04/10/2021 Sulfamethoxazole active 04/10/2021 Sulfa Antibiotics active 04/10/2021 Prochlorperazine active 04/10/2021 Levofloxacin active 04/10/2021 Hydrochlorothiazide active 04/10/2021 Cortisone active 04/10/2021 Codeine active 04/10/2021 Chocolate active 04/10/2021 Problems Problem Status Start Date End Date MUSCLE WASTING AND ATROPHY, NOT ELSEWHERE CLASSIFIED, MULTIPLE SITES (Primary) (M62.59 - ICD-10-CM) ACTIVE 06/20/2024 ENCOUNTER FOR SURGICAL AFTER CARE FOLLOWING SURGERY ON THE DIGESTIVE SYSTEM (Z48.815 - ICD-10-CM) ACTIVE 06/20/2024 ALZHEIMER'S DISEASE, UNSPECIFIED (G30.9 - ICD-10-CM) A CTIVE 06/20/2024 GASTROINTESTINAL HEMORRHAGE, UNSPECIFIED (K92.2 - ICD-10-CM) ACTIVE 06/20/2024 UNSPECIFIED TOXIC ENCEPHALOPATHY (G92.9 - ICD-10-CM) A CTIVE 06/20/2024 UNSPECIFIED MOOD [AFFECTIVE] DISORDER (F39 - ICD-10-CM ) ACTIVE 06/20/2024 UNSPECIFIED PROTEIN-CALORIE MALNUTRITION (E46 - ICD-10 -CM) ACTIVE 06/20/2024 GASTRO-ESOPHAGEAL REFLUX DIS EASE WITHOUT ESOPHAGITIS (K21.9 - ICD-10-CM) ACTIVE 04/10/2021 IRRITABLE BOWEL SYNDROME, UNSPECIFIED (K58.9 - ICD-10- CM) ACTIVE 04/10/2021 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 - ICD-10-CM) ACTIVE 04/10/2021 THROMBOCYTOPENIA, UNSPECIFIED (D69.6 - ICD-10-CM) ACTI VE 04/10/2021 ANEMIA, UNSPECIFIED (D64.9 - ICD-10-CM) ACTIVE 0 04/10/2021 UNSPECIFIED OSTEOARTHRITIS, UNSPECIFIED SITE (M19.90 - ICD-10-CM) ACTIVE 04/10/2021 HYPOMAGNESEMIA (E83.42 - ICD-10-CM) ACTIVE 04/10 OTHER IDIOPATHIC PERIPHERAL AUTONOMIC NEUROPATHY (G90.09 - ICD-10-CM) ACTIVE 04/10/2021 ALCOHOL USE, UNSPECIFIED WIT H UNSPECIFIED ALCOHOL-INDUCED DISORDER (F10.99 - ICD-10-CM) ACTIVE 04/10/2021 PERSONAL HISTORY OF PULMONAR Y EMBOLISM (Z86.711 - ICD-10-CM) ACTIVE 04/10/2021 ESSENTIAL (PRIMARY) HYPERTENSION (I10 - ICD-10-CM) ACT CROW 04/10/2021 AGE-RELATED OSTEOPOROSIS WIT HOUT CURRENT PATHOLOGICAL FRACTURE (M81.0 - ICD-10-CM) ACTIVE 04/10/2021 VITAMIN B12 DEFICIENCY ANEMI A, UNSPECIFIED (D51.9 - ICD-10-CM) ACTIVE 04/10/2021 MALIGNANT NEOPLASM OF UNSPEC IFIED SITE OF UNSPECIFIED FEMALE BREAST (C50.919 - ICD-10-CM) ACTIVE 04/10/2021 ALCOHOLIC FATTY LIVER (K70.0 - ICD-10-CM) ACTIVE 04/10/2021 Encounters Encounter Performer Performer Role Encounter Diagnoses Location Date Discharge - Discharged to home or self care - Home - Private home/apt. with no home health services [facility] 4 07:21 pm EDT - 4 10:46 am EDT Immunizations Vaccine Date (Pneumococcal) PCV20- Conjugate 20-digna t Vaccine 02/02/2019 12:00 am EDT (Pneumococcal) PPSV23- Polysaccharide 23 -valent Vaccine 12/31/2021 12:00 am EST Social History
[2024-11-23 14:31] VITALS: BP 132/78; PULSE 106; TEMP 36; O2SAT 96; BMI 21.3
--- NOTE | 2024-11-23 14:31 | MHC.PC.OV ---
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 Required: No Accompanied by: Self / Same As Patient Allergies sulfamethoxazole [From Bactrim] Allergy (Severe, Verified 11/23/24 14:39) Itching trimethoprim [From Bactrim] Allergy (Severe, Verified 11/23/24 14:39) Itching cortisone [Cortisone] Allergy (Mild, Verified 11/23/24 14:39) PT STATES, hx TB IT COULD AFFECT CRYSTALS IN LUNG prochlorperazine [From Compazine] Allergy (Mild, Verified 11/23/24 14:39) LEG NUMBNESS hydrochlorothiazide Allergy (Unknown, Verified 11/23/24 14:39) RASH levofloxacin [Levaquin] Allergy (Unknown, Verified 11/23/24 14:39) Wakefulness, nausea, shaking Sulfa (Sulfonamide Antibiotics) Adverse Reaction (Intermediate, Verified 11/23/24 14:39) rash codeine Adverse Reaction (Unknown, Verified 11/23/24 14:39) NAUSEA/VOMITING chocolate Allergy (Unknown, Uncoded 11/23/24 14:39) severe headaches/vomiting Tobacco use date assessed: 11/23/24 Fall risk assessment: No Falls in past year Last assessed Fall Risk: 11/23/24 Dental Screening Dental Screen Date: 11/23/24 Did you have a dental visit in the last 12 months?: Yes Did you have a dental problem in the last 6 months where you did not have access to dental care?: No Was dental information given to patient?: Patient has dentist HPI duodenal perforation HPI Details - The patient is an 84-year-old female presenting with concerns regarding cholelithiasis. The gallstones were incidentally discovered and have been asymptomatic, but recent episodes of abdominal pain have prompted further evaluation. The pain is localized in the right upper quadrant where the gallbladder is located, and there is hesitation for surgical intervention due to previous medical experiences. The discussion with specialists, including Dr. Hogan and Dr. Correia, involved considerations of potential referral to [facility] for further management. It was initially advised by Dr. Correia that the gallbladder does not necessitate removal unless symptomatic. Dietary modifications, including a low-fat diet, were recommended to manage gallstone symptoms but not fully adhered to. The patient has a past history of breast cancer, for which therapeutic hormone manipulation was discussed. Osteopenia has been noted, with concerns about bone health but no recent fractures. There is also a history of peptic ulcer disease, and current peripheral neuropathy affecting the lower extremities. Regular breast exams and mammograms are being maintained, with the last exam noted in August 2023. [facility] Medical History Pressure ulcer Chronic bacteriuria Urinary incontinence Bilateral hip pain Venous insufficiency of both lower extremities Bilateral knee pain Arthritis of lumbosacral spine Chronic diarrhea TIA (transient ischemic attack) UTI (urinary tract infection) Hallucination Confusion Diarrhea Supratherapeutic INR Weakness Cognitive change Pernicious anemia Osteoporosis Peripheral neuropathy Impaired fasting glucose Irritable bowel syndrome Breast cancer Thrombocytopenia Hypomagnesemia Hx of hypercalcemia History of alcohol use B12 deficiency Fatty liver, alcoholic HTN (hypertension) Hx of metabolic acidosis GERD (gastroesophageal reflux disease) Hx of deep venous thrombosis Hx of tuberculosis History of pulmonary embolism History of right breast cancer Osteoarthritis of left knee Surgical History Hx of exploratory laparotomy (06/14/24) History of left knee surgery History of arthroplasty of left knee Hx of adenoidectomy History of esophagogastroduodenoscopy (EGD) History of evacuation of hematoma Hx of colonoscopy History of cataract surgery History of cystoscopy History of knee replacement procedure of right knee History of lumpectomy of right breast History of tonsillectomy H/O right mastectomy S/P SASHA-BSO (total abdominal hysterectomy and bilateral salpingo-oophorectomy) History of appendectomy Family History Father No problems noted. Mother No problems noted. Other No family history of cancer Social History Household Members: Spouse Housing: House Are you a primary care aide to a significant other at home: No Do you presently have visiting nurse or other home services: No Alcohol intake: former Comment: see RN note Patient Tobacco Use Status: Never used Tobacco e-Cigarette/Vaping Use: Never Used Second Hand Smoke Exposure: No Advance Directives Date on File: 12/24/21 service: No Current occupational status: retired Cognitive needs: No Hearing needs: No Vision needs: Yes Questionnaire PHQ-9 Over the last 2 weeks, how often have you been bothered by any of the following problems? 1. Little interest or pleasure in doing things: not at all 2. Feeling down, depressed, or hopeless: not at all 3. Trouble falling or staying asleep, or sleeping too much: not at all 4. Feeling tired or having little energy: not at all 5. Poor appetite or overeating: not at all 6. Feeling bad about yourself - or that you are a failure or have let yourself or your family down: not at all 7. Trouble concentrating on things, such as reading the newspaper or watching television: not at all 8. Moving or speaking so slowly that other people could have noticed. Or the opposite - being so fidgety or restless that you have been moving around a lot more than usual: not at all 9. Thoughts that you would be better off or of hurting yourself in some way: not at all Total score: 0 Depression Screening Interpretation: Negative Depression Screening Done: Yes 22133 - PHQ-9 Billing: Yes Source: Developed by Drs. Praful Kohler, Vonda Vasquez, Jj Dewitt and colleagues, with an educational bharti from [employer]. Thrive Questionnaire Date Thrive assessed: 11/23/24 I am a: Patient What is your living situation today?: I have a steady place to live Within the past 12 months, did the food you bought not last and you didn't have the money to get more?: Never true Within the past 12 months, did you worry whether your food would run out before you got money to buy more?: Never true Do you have trouble paying for medicines?: No Do you have trouble getting transportation to medical appointments?: No Do you have trouble paying your heating and electricity bill?: No Do you have trouble taking care of your child, family member or friend?: No Do you have trouble with day-to-day activities such as bathing, preparing meals, shopping, managing finances, etc.?: No Are you currently unemployed and looking for a job?: No Are you interested in more education?: No Please select the resources that you would like help with: None Currently or been in a relationship where the following occur: No concerns reported THRIVE Score: 0 AUDIT C Alcohol Use Questionnaire (AUDIT-C) 1. How often do you have a drink containing alcohol?: 4 or more times a week 2. How many drinks containing alcohol do you have on a typical day when you are drinking?: 1 or 2 (Jin with water ) 3. How often do you have six or more drinks on one occasion?: Never Total Score: 4 CEDRIC-7 AMB Questionnaire CEDRIC-7 Date CEDRIC - 7 assessed: 11/23/24 Feeling nervous, anxious, or on edge: 0 = Not at all Not being able to stop or control worryin = Not at all Worrying too much about different things: 0 = Not at all Trouble relaxin = Not at all Being so restless that it is hard to sit still: 0 = Not at all Becoming easily annoyed or irritable: 0 = Not at all Feeling afraid as if something awful might happen: 0 = Not at all Total CEDRIC-7 score (0-4 normal; 5-9 mild; 10-14 moderate; 15-21 severe): 0 Source: Developed by Drs. Praful Kohler, Vonda Vasquez, Jj Dewitt and colleagues, with an educational bharti from [employer]. CEDRIC-7 Assessment Billing CEDRIC-7 Assessment Tool: CEDRIC-7 Assessment 09612 Physical exam (Primary Care) Vital Signs: Last Vital Signs Temp 96.8 F 11/23/24 14:31 Pulse 106 H 11/23/24 14:31 BP 132/78 11/23/24 14:31 Pulse Ox 96 11/23/24 14:31 Oxygen Delivery Method Room Air 11/23/24 14:31 BMI result Body Mass Index 21.3 Tobacco/Smoking Status: Tobacco use Status Tobacco use date assessed 11/23/24 11/23/24 14:39 Patient Tobacco Use Status Never used Tobacco 11/23/24 14:32 e-Cigarette/Vaping Use Never Used 11/23/24 14:32 PHQ-9: PHQ-9 Score PHQ-9: Total score 0 11/23/24 14:55 Depression Screening Interpretation: Negative Thrive Assessment: Date of Thrive Assessment Date Thrive assessed 11/23/24 11/23/24 14:39 Currently or been in a relationship where the following occur: No concerns reported Const General: alert; No acute distress Eyes Conjunctivae: conjunctivae normal Resp Auscultation: clear to auscultation bilaterally Cardio Rate: regular rate Rhythm: regular rhythm GI Inspection: Yes normal to inspection Extrem General: Yes normal to inspection and No edema Coding Level of Care Code Est Pt Level 4 (00531) Diagnoses Choledocholithiasis K80.50 Essential hypertension I10 Hypertension type: essential hypertension History of right breast cancer Z85.3 GERD (gastroesophageal reflux disease) K21.9 History of pulmonary embolism Z86.711 Additional Codes CEDRIC-7 Assessment Billing - CEDRIC-7 Assessment Tool: CEDRIC-7 Assessment 13899 ([id number]) PHQ-9 - 92843 - PHQ-9 Billing: Yes ([id number]) Assessment & Plan Assessment & Plan (1) Choledocholithiasis: Code(s): K80.50 - Calculus of bile duct without cholangitis or cholecystitis without obstruction Category: Medical Plan: Low-fat diet and follow-up with the surgeon regarding further management of gallbladder stones specially now that the patient is having pain on the right mid back. (2) HTN (hypertension): Code(s): I10 - Essential (primary) hypertension Category: Medical Qualifiers: Hypertension type: essential hypertension Qualified Code(s): I10 - Essential (primary) hypertension Plan: Continue with blood pressure medication. Decrease salt intake and exercise continuing with metoprolol 12.5 mg twice a day (3) History of right breast cancer: Comment: 2006 lumpectomy and chemotherapy Code(s): Z85.3 - Personal history of malignant neoplasm of breast Category: Medical Plan: Continue to have the mammogram as well as follow-up with the surgeon. And Hematology-Oncology (4) GERD (gastroesophageal reflux disease): Comment: Albarran's esophagus, April 2014 EGD moderate GERD 2020 Code(s): K21.9 - Gastro-esophageal reflux disease without esophagitis Category: Medical Plan: Avoid the foods that causes that usually spicy foods, tomato products, juices, coffee, soda and foods that your sensitive to. After eating do not lie down, allow 3-4 hours before in lie down. And keep the head of bed above 30 degrees to avoid the acid from going up. (5) History of pulmonary embolism: Code(s): Z86.711 - Personal history of pulmonary embolism Category: Medical Plan: Continue with the blood thinner and monitor for renal function. Plan 1. - Address osteopenia with patient education on fall prevention; explore pharmacological options as necessary, weighing risks and benefits: - For peripheral neuropathy, continue current care and consider assessment of pain management effectiveness. - Monitor history of peptic ulcer disease and manage proactively to prevent recurrence, student support counselor on symptoms of concern. - Reiterate importance of daily skin care to mitigate dryness and eczema. Consider increase in humidity in living environment to aid skin condition. Orders: Orders Magnesium 1 Day K80.20 - Calculus of gallbladder without cholecystitis without obstruction
== END 2024-11-23 15:30 | disposition home or self-care (01) ==
PROVIDERS: PCP Internal Medicine; Visit Provider Internal Medicine
DX: K80.50 Calculus of bile duct without cholangitis or cholecystitis without obstruction (principal); I10 Essential (primary) hypertension; Z85.3 Personal history of malignant neoplasm of breast; K21.9 Gastro-esophageal reflux disease without esophagitis; Z86.711 Personal history of pulmonary embolism

== ENCOUNTER → 2024-11-23 14:21 | Outpatient (BNVA) | payer MEDICARE, SELFPAY | PROVIDERS: PCP Internal Medicine; Visit Provider Internal Medicine | DX: K80.50 Calculus of bile duct without cholangitis or cholecystitis without obstruction (principal); I10 Essential (primary) hypertension; K21.9 Gastro-esophageal reflux disease without esophagitis; Z85.3 Personal history of malignant neoplasm of breast; Z86.711 Personal history of pulmonary embolism | CPT/HCPCS: 96127; 99212 ==

== ENCOUNTER 2025-01-22 10:05 | Outpatient (AMB) | payer MEDICARE, SELFPAY ==
--- NOTE | 2025-01-22 10:10 | A.OFFVIS_ITS ---
Vital Signs 01/22/25 10:18 Height 5 ft 3 in Weight 120 lb BMI 21.3 BP 111/53 L Blood Pressure Location Lt brachial Position Sitting Pulse 103 H Intake Visit Reasons: gallstones Intake Note: Patient is seen in office for evaluation of the gallbladder. 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: No Accompanied by: Spouse Allergies sulfamethoxazole [From Bactrim] Allergy (Severe, Verified 01/22/25 10:17) Itching trimethoprim [From Bactrim] Allergy (Severe, Verified 01/22/25 10:17) Itching cortisone [Cortisone] Allergy (Mild, Verified 01/22/25 10:17) PT STATES, hx TB IT COULD AFFECT CRYSTALS IN LUNG prochlorperazine [From Compazine] Allergy (Mild, Verified 01/22/25 10:17) LEG NUMBNESS hydrochlorothiazide Allergy (Unknown, Verified 01/22/25 10:17) RASH levofloxacin [Levaquin] Allergy (Unknown, Verified 01/22/25 10:17) Wakefulness, nausea, shaking Sulfa (Sulfonamide Antibiotics) Adverse Reaction (Intermediate, Verified 01/22/25 10:17) rash codeine Adverse Reaction (Unknown, Verified 01/22/25 10:17) NAUSEA/VOMITING chocolate Allergy (Unknown, Uncoded 01/22/25 10:17) severe headaches/vomiting Medication List - Last Reconciled 01/22/25 by Jose Angel Hutson MD folic acid 0.8 mg PO DAILY folic acid 1 mg PO DAILY gabapentin 300 mg PO BEDTIME 90 days magnesium oxide 400 mg PO BID metoprolol tartrate 12.5 mg (1/2 x 25 mg) PO BID 90 days omeprazole 40 mg PO BID@0630,1630 quetiapine (Seroquel) 25 mg PO DAILY [right mastectomy bra As directed] rivaroxaban (Xarelto) 20 mg PO DAILY HPI Comments Details: 84-year-old female patient with a previous history of breast cancer status post right mastectomy, s/p exploratory laparotomy for perforation of the duodenum during an endoscopy. This was repaired with a Valentín patch. Endoscopy was performed for common bile duct stones noted on MRCP. The ERCP was never performed and the patient continues to have evidence of common duct stones. Since her last visit she reports some mild abdominal pain mainly in the right lower and right upper quadrants. Pain is worse when she was lying down and does not seem to be associated with dietary intake. She reports some nausea in the morning but denies any vomiting. Denies fever or chills. Her appetite is reduced and she does report daily diarrhea and occasional leakage. She denies any blood per rectum. Her appetite is okay but not great. She was referred by Dr. Hogan to [facility] [place] gastroenterology (Dr. Hurtado). Patient has yet to set up an appointment. [facility] Medical History Diarrhea Pressure ulcer Chronic bacteriuria Urinary incontinence Bilateral hip pain Venous insufficiency of both lower extremities Bilateral knee pain Arthritis of lumbosacral spine Chronic diarrhea TIA (transient ischemic attack) UTI (urinary tract infection) Hallucination Confusion Supratherapeutic INR Weakness Cognitive change Pernicious anemia Osteoporosis Peripheral neuropathy Impaired fasting glucose Irritable bowel syndrome Breast cancer Thrombocytopenia Hypomagnesemia Hx of hypercalcemia History of alcohol use B12 deficiency Fatty liver, alcoholic HTN (hypertension) Hx of metabolic acidosis GERD (gastroesophageal reflux disease) Hx of deep venous thrombosis Hx of tuberculosis History of pulmonary embolism History of right breast cancer Osteoarthritis of left knee Surgical History Hx of exploratory laparotomy (06/14/24) History of left knee surgery History of arthroplasty of left knee Hx of adenoidectomy History of esophagogastroduodenoscopy (EGD) History of evacuation of hematoma Hx of colonoscopy History of cataract surgery History of cystoscopy History of knee replacement procedure of right knee History of lumpectomy of right breast History of tonsillectomy H/O right mastectomy S/P SASHA-BSO (total abdominal hysterectomy and bilateral salpingo-oophorectomy) History of appendectomy Family History Father No problems noted. Mother No problems noted. Other No family history of cancer Social History Household Members: Spouse Housing: House Are you a primary career based intervention coordinator to a significant other at home: No Do you presently have visiting nurse or other home services: No Alcohol intake: former Comment: see RN note Patient Tobacco Use Status: Never used Tobacco e-Cigarette/Vaping Use: Never Used Second Hand Smoke Exposure: No Advance Directives Date on File: 12/24/21 service: No Current occupational status: retired Cognitive needs: No Hearing needs: No Vision needs: Yes Review of Systems Const Denies body aches, Denies chills, Reports daytime sleepiness, Reports difficulty sleeping, Denies fever(s), Denies headache(s) and Denies poor appetite Eyes Reports no additional complaints ENT Denies dysphagia, Denies dizziness, Denies headache(s) and Denies odynophagia Card Denies chest pain, Denies syncope, Denies edema, Denies irregular heart rhythm, Denies lightheadedness and Denies dyspnea Resp Denies cough and Denies dyspnea GI Denies abdominal pain, Denies melena, Denies hematochezia, Denies constipation, Denies dysphagia, Denies diarrhea, Denies nausea, Denies odynophagia and Denies vomiting Details: Nocturia Musc Reports no additional complaints and Denies abnormal gait Skin/Breast Reports system reviewed and no additional complaints, except as documented Neuro Denies abnormal gait, Denies dizziness, Denies syncope and Denies headache(s) Psych Reports no additional complaints Physical Exam Vital Signs: Last Vital Signs Pulse 103 H 01/22/25 10:18 BP 111/53 L 01/22/25 10:18 BMI result Body Mass Index 21.3 Const General: no acute distress Nutritional Appearance: thin Orientation/consciousness: patient oriented x3 Limitations: no limitations HEENT Head: Yes normocephalic and Yes atraumatic Ears: hearing grossly normal bilaterally Resp Effort & Inspection: normal respiratory effort, no audible wheezes, no cough and no respiratory distress GI Inspection: Yes normal to inspection Palpation (GI): Soft to palpation, nontender, no guarding, not rigid, No hepatosplenomegaly present, No Ascites present and No Rebound tenderness present Percussion: Yes normal to percussion Auscultation: normal bowel sounds Skin General skin exam: no rashes or lesions noted Neuro General: patient oriented x3 Extrem General: Yes no clubbing, cyanosis or edema Assessment & Plan Assessment & Plan (1) Diarrhea: Code(s): R19.7 - Diarrhea, unspecified Category: Medical Qualifiers: Diarrhea type: unspecified type Qualified Code(s): R19.7 - Diarrhea, unspecified (2) Choledocholithiasis: Code(s): K80.50 - Calculus of bile duct without cholangitis or cholecystitis without obstruction Category: Medical (3) Cholelithiasis: Code(s): K80.20 - Calculus of gallbladder without cholecystitis without obstruction Category: Medical Qualifiers: Cholelithiasis location: gallbladder and bile duct Cholecystitis acuity: chronic Biliary obstruction: without biliary obstruction (4) Duodenal perforation: Comment: Duodenal perforation June 14 2024 exploratory laparotomy removal of duodenal polyp repair of duodenal perforation and omental patch Dr. Hutson Code(s): K63.1 - Perforation of intestine (nontraumatic) Category: Surgical Plan 84-year-old female patient with known choledocholithiasis and cholelithiasis presenting with complaints of occasional abdominal pain and diarrhea. The patient's symptoms do not seem to be affecting her ability to eat. Ideally the patient should have the common duct stones removed with the ERCP. We did review other options including open common bile duct exploration at the time of cholecystectomy which would be a difficult procedure due to her previous surgeries. She is not interested in undergoing further surgery at this time. I recommended she see Dr. Hurtado at [facility] [place] to see if he was willing to proceed with the ERCP. I also recommended obtaining a stool specimen for C diff evaluation. She expressed understanding and agrees with the plan. Orders: Orders CDiff Gene PCR Today R19.7 - Diarrhea, unspecified Referrals Gastroenterology Referral K63.1 - Perforation of intestine (nontraumatic), K80.20 - Calculus of gallbladder without cholecystitis without obstruction, K80.50 - Calculus of bile duct without cholangitis or cholecystitis without obstruction Coding Level of Care Code Est Pt Level 3 (89691) Diagnoses Diarrhea, unspecified type R19.7 Diarrhea type: unspecified type Choledocholithiasis K80.50 Cholelithiasis K80.20 Cholelithiasis location: gallbladder and bile duct Cholecystitis acuity: chronic Biliary obstruction: without biliary obstruction Duodenal perforation K63.1
[2025-01-22 10:18] VITALS: BP 111/53; PULSE 103; BMI 21.3
--- OUTSIDE RECORDS SUMMARY | 2025-01-22 11:45 | XMS_ITS ---
Author Organization [facility] Address [address] [place] [id number] Care Team Providers Care Senior Electronics Technician Name Role Phone Vinicius Burnett Primary Care Provider Unavailabl e Omero, Tia Unavailable [phone] Rose Dan [phone] Encounters Encounter Location Date Provider Diagnosis [address] [address] 03/06/2024 Rose Dan Plan Of Treatment No Information Progress Notes * Cande FOX ADOB:1939 (84 yo F)Acc No.[id number]:03/06/2024 Progress Note Patient:Cande ESQUIVEL Provider:?Rose Dan DPM :1940???Age:83 Y???Sex:Female D ate:03/06/2024 Address:[address] [place], [place] [id number] Pcp:Vinicius Burnett Subjective: * Chief Complaints: * ??? * Medical History:? Objective: * Vitals:? Assessment: Plan: * Treatment: * Images: * The named appointment provid er may or may not be the originator of this progress note, and it is not deemed complete until electronically signed by the appointment provider. Sign off status: Pending * Provider:?Rose Dan DPM Date:? Generated for Celina schneider/Adonay/eTransmitting on:?01/22/2025 11:45 AM EDT
--- OUTSIDE RECORDS SUMMARY | 2025-01-22 11:45 | XMS_ITS ---
Author Organization [facility] Address [address] [place] [id number] Care Team Providers Care Architect Naval Name Role Phone Vinicius Burnett MD Primary Care Provider Apolinar Mills Jr Unavailable Allergies Allergen (clinical drug ingredient) Drug/Non Drug Allergy documented on EMR Reaction Allergy Type Onset Date Status prochlorperazine Prochlorperazine Unknown Drug Allergy Active furosemide Lasix Unknown Drug Allergy Active hydrochlorothiazide Hydrochlorothiazide Unknown Drug Aller gy Active Codeine Phosphate Unknown Drug Allergy Active sulfate (uncoded) Unknown Allergy Ac tive chocolate (uncoded) Unknown Allergy Active REASON FOR VISIT anemia and common bile duct stones Medications Medication SIG (Take, Route, Frequency, Duration) Notes Start Date End Date Status Omeprazole 20 MG 1 capsule 30 minutes before morning meal Orally Once a day for 90 days 01/06/2022 Active Methenamine Hippurate 1 GM Oral for 30 Active Metoprolol Tartrate 25 MG 1 tablet with food Orally Twice a day for 30 day(s) Active Flonase Active Folic Acid 1 MG 1 tablet Orally Once a day Active Magnesium Oxide 400 MG 1 tablet as neede d Orally Once a day Active QUEtiapine Fumarate ER 50 MG 1 tablet in the evening Orally Once a day for 30 day(s) Active Gabapentin 300 MG 1-2 capsule Orally t wice a day Active Xarelto 20 MG 1 tablet with food O rally Once a day for 30 day(s) Active Social History Alcohol Screen Question Answer Notes Did you have a drink containing alcohol in the p ast year? No Points 0 Interpretation Negative Section Notes: The patient drinks two or th ree alcoholic drinks per night.2023 no alcohol Problems Problem Type SNOMED Code ICD Code Onset Dates Problem Status W/U Status Risk Notes Problem 264339366 Choledocholithia sis (K80.50) Active confirmed Problem 102528785 Anemia, unspecif ied type (D64.9) Active confirmed Vital Signs Blood pressure systolic 00 mm Hg 09/19/20 24 Blood pressure diastolic 00 mm Hg 024 Height 64.25 in 09/19/2024 Weight 119 lbs 09/19/2024 BMI 20.27 kg/m2 09/19/2024 Encounters Encounter Location Date Provider Diagnosis [facility] [address] [place] [address] 09/19/2024 Apolinar Hogan Jr Choledocholithiasis K80.50 and Anemia, unspecified type D64.9 Assessments Encounter Date Diagnosis (ICD Code) Assessment Notes Treatment Notes Treatment Clinical Notes Section Notes 09/19/2024 Choledocholithiasis (ICD-10 - K80.50) Currently she appears to be doing well. She's had no further bleeding since a duodenal polyp was removed in her surgical repair. We recommended further evaluation with MRI for reassessment of her common bile duct stones, and pending these results she may need ERCP. We would recommend this be done at a tertiary care center because of her previous experience with duodenal perforation. Today's appointment was 30 minutes. 09/19/2024 Anemia, unspecified type (ICD-10 - D64.9) Currently she appears to be doing well. She's had no further bleeding since a duodenal polyp was removed in her surgical repair. We recommended further evaluation with MRI for reassessment of her common bile duct stones, and pending these results she may need ERCP. We would recommend this be done at a tertiary care center because of her previous experience with duodenal perforation. Today's appointment was 30 minutes. Plan Of Treatment Pending Test Test Name Order Date MRCP 09/19/2024 Next Appt Details Follow Up: 1 Year, Reason: Provider Name:Apolinar angulo Jr, 02/25/2025 09:20:00 AM, [address], [address], [place], [address], Progress Notes * ARTI ALFARO ADOB:1939 (83 yo F)Acc No.[id number]:09/19/2024 Progress Notes Patient:ARTI ESQUIVEL Provider:?Apolinar Hogan MD :1940???Age:83 Y???Sex:Female D ate:09/19/2024 Address:[address] [place], [place] [id number] Pcp:Vinicius Burnett MD Subjective: * Chief Complaints: * ???1. Anemia and common bile duct stones. * HPI: ???New symptom(s):? The patient is an 83-year-old woman seen today in followup of anemia and choledocholithiasis. She was hospitalized in May with anemia and black stools/hematochezia. She underwent upper endoscopy and colonoscopy. The colonoscopy showed a sessile serrated polyp and tubular adenoma in the cecum, both of which were removed. The upper endoscopy showed a previously identified ulcerated duodenal polyp, and ERCP was then attempted, but aborted after a duodenal perforation was identified. She subsequently underwent laparotomy and repair of the perforation with removal of the duodenal polyp which was an ulcerated hyperplastic polyp. She has not had any recurrent melena since that time. She remains on Xarelto for her history of pulmonary emboli. She has not had any right upper quadrant pain, jaundice, cholangitis or pancreatitis. * Medical History:?Colonoscopy 06/16, sessile serrated polyp in tubular adenoma, Albarran's esophagus, no intestinal metaplasia noted on biopsies 2013, last EGD 06/16, Hypertension, Degenerative joint disease, radiculopathy, History of tuberculosis, Breast cancer, DCIS, right mastectomy, Chronic kidney disease, Urinary incontinence/overactive bladder, Pulmonary emboli, chronic Xarelto therapy, Anemia. * Surgical History:?ovarian cy st surgery , appendetomy , tonsillectomy , hysterectomy , Right mastectomy , left knee replacement , right knee replacement , Cystoscopy with Botox injection for overactive bladder , Exploratory laparotomy with repair of duodenal perforation and polypectomy . * Family History:?Father: dece ased, diagnosed with HTN (hypertension).?Mother: , diagnosed with HTN (hypertension).?Siblings: .? Patient denies any history of colorectal cancer, colon polyps or liver ds in her family. * Social History:?Tobacco Use:?Tobacco Use/Smoking?Are you a: nonsmoker.?Drugs/Alcohol:?Alcohol Screen?Did you have a drink containing alcohol in the past year??No,?Points?0,?Interpretation?Negative.?Miscellaneous:?Marital status: . Occupation: retired. ???The patient drinks two or three alcoholic drinks per night.2023 no alcohol. * Medications:?Taking Xarelto 20 MG Tablet 1 tablet with food Orally Once a day, Taking QUEtiapine Fumarate ER 50 MG Tablet Extended Release 24 Hour 1 tablet in the evening Orally Once a day, Taking Gabapentin 300 MG Capsule 1-2 capsule Orally twice a day, Taking Folic Acid 1 MG Tablet 1 tablet Orally Once a day, Taking Magnesium Oxide 400 MG Capsule 1 tablet as needed Orally Once a day, Taking Metoprolol Tartrate 25 MG Tablet 1 tablet with food Orally Twice a day, Taking Flonase , Taking Methenamine Hippurate 1 GM Tablet Oral , Taking Omeprazole 20 MG Capsule Delayed Release 1 capsule 30 minutes before morning meal Orally Once a day, Discontinued Tolterodine Tartrate ER 4 MG Capsule Extended Release 24 Hour 1 capsule Orally Once a day, Discontinued Acetaminophen ER 650 MG Tablet Extended Release 2 tablets as needed Orally every 4 hrs, Notes: PRN, Discontinued Toviaz 4 MG Tablet Extended Release 24 Hour 1 tablet Orally Once a day, Discontinued QUEtiapine Fumarate 25 MG Tablet Oral , Medication List reviewed and reconciled with the patient * Allergies:?Codeine Phosphate , Hydrochlorothiazide, Prochlorperazine, chocolate, Lasix, sulfate. Objective: * Vitals:?Wt: 119 lbs, Ht: 64. 25 in, BMI:20.27 Index, BP: 00/00 mm Hg. * Examination: ???General Examination: ???Examination today, she appears well. Skin is anicteric. Lungs are clear. Heart shows a regular rate and rhythm. Abdomen is soft without focal mass or tenderness. Extremities are without edema. Assessment: * Assessment: 1.?Choledocholithiasis - K80 .50 (Primary)?2.?Anemia, unspecified type - D64.9? Currently she appears to be doing well. She's had no further bleeding since a duodenal polyp was removed in her surgical repair. We recommended further evaluation with MRI for reassessment of her common bile duct stones, and pending these results she may need ERCP. We would recommend this be done at a tertiary care center because of her previous experience with duodenal perforation. Today's appointment was 30 minutes. Plan: * Treatment: * * Preventive Medicine:? ??Urinary Incontinence:?Urinary Incontinence?Assessment:?Present,?Plan of care documented:?Yes,?Type of plan of care:?Lifestyle interventions.? ??Screenings:?Fall Risk Screening?Fall Risk Assessment:?No falls in the past year,?Screening:?No falls in the past year,?Assessment:?Not performed, no reason specified,?Plan of Care:?Not documented, no reason specified.? * Follow Up:?1 Year * * Sign off status: Completed true * Provider:?Apolinar Hogan MD Date:?11/19/2023 Generated for Celina schneider/Adonay/eTransmitting on:?01/22/2025 11:44 AM EDT History and Physical Notes * HPI (History of Present Illness) Category Sub-Category Detail Notes Category Not es New symptom(s) The patient i s an 83-year-old woman seen today in followup of anemia and choledocholithiasis. She was hospitalized in May with anemia and black stools/hematochezia. She underwent upper endoscopy and colonoscopy. The colonoscopy showed a sessile serrated polyp and tubular adenoma in the cecum, both of which were removed. The upper endoscopy showed a previously identified ulcerated duodenal polyp, and ERCP was then attempted, but aborted after a duodenal perforation was identified. She subsequently underwent laparotomy and repair of the perforation with removal of the duodenal polyp which was an ulcerated hyperplastic polyp. She has not had any recurrent melena since that time. She remains on Xarelto for her history of pulmonary emboli. She has not had any right upper quadrant pain, jaundice, cholangitis or pancreatitis. Examination Category Sub-Category Detail Notes Category Not es General Examination Examinat ion today, she appears well. Skin is anicteric. Lungs are clear. Heart shows a regular rate and rhythm. Abdomen is soft without focal mass or tenderness. Extremities are without edema.
--- OUTSIDE RECORDS SUMMARY | 2025-01-22 11:45 | XMS_ITS ---
Author Organization [facility] Address [address] [place] [address] Care Team Providers Care Seat Maker Name Role Phone Vinicius Burnett Primary Care Provider Tia Shepard [phone] REASON FOR VISIT cx 03/06 Encounters Encounter Location Date Provider Diagnosis [facility] [address] [place] [address] 03/02/2024 Tia Jamil Plan Of Treatment No Information Progress Notes * Cande FOX ADOB:1939 (83 yo F)Acc No.[id number]:03/02/2024 Patient:?Shereen Foxzabeth Ana :1940???Age:83 Y???Sex:Female Address:[address] [place] [address], [id number] * true * Date:? Generated for Printi ng/Adonay/eTransmitting on:?01/22/2025 11:44 AM EDT
--- OUTSIDE RECORDS SUMMARY | 2025-01-22 11:45 | XMS_ITS ---
Author Organization [facility] Address [address] [place] [address] Care Team Providers Care Coil Tester Name Role Phone Vinicius Burnett MD Primary Care Provider Apolinar Mills Jr REASON FOR VISIT MRI results- faxed 10/30/24 Encounters Encounter Location Date Provider Diagnosis [facility] [address] [place] [address] 10/30/2024 Apolinar Hogan Jr Plan Of Treatment Next Appt Details Provider Name:Apolinar angulo Jr, 02/25/2025 09:20:00 AM, [address] [place] [address], [address], [place], [address], Progress Notes * ARTI ALFARO ADOB:1939 (84 yo F)Acc No.[id number]:10/30/2024 Patient:?ARTI ALFARO :1940???Age:84 Y???Sex:Female Address:[address] [place], [place] [address] [place] [address] * true * Date:? Generated for Printi jennie/Adonay/eTransmitting on:?01/22/2025 11:45 AM EDT
--- OUTSIDE RECORDS SUMMARY | 2025-01-22 11:45 | XMS_ITS ---
Author Organization [facility] Address [address] [place] [address] Care Team Providers Care Physics Tutor Name Role Phone Vinicius Burnett Primary Care Provider Unavailabl e Omero Tia Unavailable [phone] ArielaRose sr Unavailable [phone] Allergies Allergen (clinical drug ingredient) Drug/Non Drug Allergy documented on EMR Reaction Allergy Type Onset Date Status HTC (uncoded) rash Allergy Active ibuprofen Advil cant take due to takiung warfarain Drug Allergy Active Aleve Unknown Drug Allergy Active Motrin Unknown Drug Allergy Active Compazine 10mg Unknown Drug Allergy Ac tive codeine Codeine Unknown Drug Allergy Active REASON FOR VISIT Pcp- 12/14/23, Painful nail(s) aggrevated by shoes causing difficulty standing/walking, Foot pain Medications Medication SIG (Take, Route, Frequency, Duration) Notes Start Date End Date Status Oxycodone-Ibuprofen 5 mg 1 tablet as nee ded Orally every 6 hrs Not-Taking Simvastatin 40 MG Orally Once a day Not-Taking Potassium Bicarb-Citric Acid 10 MEQ 1 tablet Orally Once a day Not-Taking Zetia 10 MG 1 tablet Orally Once a day Not-Taking Warfarin Sodium 2.5 MG 1 tablet Orally O nce a day Not-Taking Atenolol 50 MG 1 tablet Orally Once a day Not-Taking Vitamin B12 once a month Not-T aking Warfarin Sodium Not- Taking zzzCompression Stockings 20-30mm Hg . . . for . Active Xarelto Active Tylenol PRN Active Famotidine 40 MG 1 tablet at bedtime Orally Once a day for 30 day(s) Active Metoprolol Succinate 25 MG 1 capsule Ora lly twice a day Active Magnesium Oxide 400 MG 1 tablet as neede d Orally Once a day for 30 day(s) Active Myrbetriq 50 MG 1 tablet Orally Once a day for 30 day(s) Active Toviaz 4 MG 1 tablet Orally Once a day Active Aspirin 81 MG 1 tablet Orally Once a day PRN Active Folic Acid Once a day Active Gabapentin 300 MG 1-2 Orally twice a day Active Social History Tobacco Use: Social History Observation Description Date Details (start date - stop date) Never Smoker NA - NA Tobacco Use/Smoking Question Answer Notes Are you a: nonsmoker Additional Findings: Tobacco Non-User Current no n-smoker Alcohol Screen Question Answer Notes Did you have a drink containing alcohol in the p ast year? No Points 0 Interpretation Negative Tobacco use other than smoking: Question Answer Notes Are you an other tobacco user? No Vital Signs Height 5 ft 4 in in 12/23/2023 Weight 126 lbs 12/23/2023 BMI 21.63 kg/m2 12/23/2023 Encounters Encounter Location Date Provider Diagnosis [facility] [address] [address] 12/23/2023 Rose Perica Pain in right foot M79.671 ; Tailor's bunion of right foot M21.621 ; Tinea unguium B35.1 ; Pain in right toe(s) M79.674 and Pain in left toe(s) M79.675 Assessments Encounter Date Diagnosis (ICD Code) Assessment Notes Treatment Notes Treatment Clinical Notes Section Notes 12/23/2023 Pain in right foot (ICD-10 - M79.671) 12/23/2023 Tailor's bunion of right foot (ICD-10 - M21.621) 12/23/2023 Tinea unguium (ICD-10 - B35.1) 12/23/2023 Pain in right toe(s) (ICD-10 - M79.674) 12/23/2023 Pain in left toe(s) (ICD-10 - M79.675) Plan Of Treatment Next Appt Details Follow Up: 2 Months, Reason: Procedure Notes * Category Sub-Category Detail Notes Debride Nail 6-10 Nail debridement Nail debridem ent performed extensively to reduce/remove overall nail length, girth, thickness, subungual debris, and necrotic tissue, by manual and electrical means through the use of a nail nipper and/or dremel, to more viable healthy nail plate or bed tissue 1-5. Silver nitrate used for any petechial bleeding as necessary. Patient chooses, no pharmaceutical tx ([id number]) Progress Notes * Cande FOX ADOB:1939 (83 yo F)Acc No.[id number]:12/23/2023 Progress Note Patient:?Cande Fox Provider:?Rose Dan DPM :1940???Age:83 Y???Sex:Female D ate:12/23/2023 Address:[address] [place] [address] Pcp:Vinicius Burnett Subjective: * Chief Complaints: * ???Pcp- 12/14/23Painful nail (s) aggrevated by shoes causing difficulty standing/walkingFoot pain * HPI: ???Painful Nails:?Pt States Last PCP Visit:?Date:?12/14/2023 ???Foot Pain:?Location:?Outside, Bottom, Forefoot, RIGHT.?Course:?worse.?Aggrevated:?any pressure, standing, walking.?Treatments:?rest/alter normal daily activity.? * ROS:?General/Constitutional:?Nausea?denies.?Vomiting?denies.?Hunger Thirst?denies.?Loss appetite?denies.?Chills?denies.?Fatigue?denies.?Fever?denies.?Night Sweats?denies.?Unexplained weight loss?denies.?Ophthalmologic:?Blurred vision?denies.?Red eye?denies.?HEENTM:?Dentures?denies.?Dizziness?denies.?Glasses/contacts?denies.?Retinopathy?de nies.?Blurred/double vision?denies.?TMJ?denies.?Discharge/drainage?denies.?Implants?denies.?Hard of hearing denies.?Difficulty chewing/swallowing/speaking?denies.?Nose bleeds?denies.?Sore mouth?denies.?Swollen glands?denies.?Respiratory:?On Oxygen?denies.?Pneumonia/pleurisy?denies.?Bronchitis?denies.?Emphysema?denies.?C oughing?admits.?Cough blood?denies.?Shortness of breath?denies.?Wheezing?denies.?Cardiovascular:?Pacemaker?denies.?MVP?denies.?WPW?denies.?CHF?denies.?Heart attack?denies.?Septal defect?denies.?Rapid beat?denies.?Chest pain ?denies.?Atrial Fib.?denies.?Murmur/Palpitations?denies.?Gastrointestinal:?Hemorrhoids?denies.?Stomach/Abdominal pain?denies.?Dark blood stool?denies.?Irritable bowel ?admits.?Constipation?admits.?Diarrhea?admits.?Vomiting?denies.?Hematology:?Swelling?admits.?Bruising?denies.?Bleeding problem?denies.?Genitourinary:?Blood urine?denies.?Frequent/Painfu/urination/bladder control?admits.?Kidney stones?denies.?Infection (UTI)?denies.?Nephropathy?admits.?Musculoskeletal:?Hammertoes?denies.?Bunions?denies.?Scoliosis/kyphosis?denies.?Muscle cramps / walking?admits.?Generalized aches and pains?denies.?Weakness?denies.?Integ.:?Guallpa?admits.?Scars?admits.?Corns/calluses?denies.?Ingrown nails?admits.?Painful nails?admits.?Rashes?denies.?Neurologic:?Difficulty sleeping?denies.?Bipolar?denies.?Brain disorder?denies.?Balance trouble?denies.?Confusion?denies.?Fainting/blackouts?denies.?Headache?denies.?Tr emors?denies.? * Medical History:? * Surgical History:?right knee replacement 07/05/16cystoscopy botox injection 03/15/22 * Hospitalization/Major Diagno stic Procedure:?[facility] for ultrasound - pt developed trotter cyst [facility]- UTI 12/17 * Family History:?Mother: dece ased, diagnosed with Unspecified essential hypertension.?Father: , diagnosed with Unspecified essential hypertension.? * Social History:?Tobacco Use:?Tobacco Use/Smoking?Are you a:?nonsmoker ?Additional Findings: Tobacco Non-User?Current non-smoker ?Tobacco use other than smoking?Are you an other tobacco user??No ???Drugs/Alcohol:?Drugs?Have you used drugs other than those for medical reasons in the past 12 months??No ?Alcohol Screen?Did you have a drink containing alcohol in the past year??No ?Points?0 ?Interpretation?Negative ???Miscellaneous:?Caffeine: yes, 1 cup per day. ?no Children. ?no Exercise, walking. ?Marital status: . ?Occupation: retired. * Medications:?TakingGabapenti n 300 MG Capsule 1-2 Orally twice a dayFolic Acid Once a dayAspirin 81 MG Tablet Chewable 1 tablet Orally Once a day, Notes: PRNToviaz 4 MG Tablet Extended Release 24 Hour 1 tablet Orally Once a dayMyrbetriq 50 MG Tablet Extended Release 24 Hour 1 tablet Orally Once a dayMagnesium Oxide 400 MG Tablet 1 tablet as needed Orally Once a dayMetoprolol Succinate 25 MG Capsule ER 24 Hour Sprinkle 1 capsule Orally twice a dayFamotidine 40 MG Tablet 1 tablet at bedtime Orally Once a dayTylenol , Notes: PRNXarelto zzzCompression Stockings 20-30mm Hg 1 pair closed toe- knee high . . .Taking Gabapentin 300 MG Capsule 1-2 Orally twice a dayTaking Folic Acid Once a dayTaking Aspirin 81 MG Tablet Chewable 1 tablet Orally Once a day, Notes: PRNTaking Toviaz 4 MG Tablet Extended Release 24 Hour 1 tablet Orally Once a dayTaking Myrbetriq 50 MG Tablet Extended Release 24 Hour 1 tablet Orally Once a dayTaking Magnesium Oxide 400 MG Tablet 1 tablet as needed Orally Once a dayTaking Metoprolol Succinate 25 MG Capsule ER 24 Hour Sprinkle 1 capsule Orally twice a dayTaking Famotidine 40 MG Tablet 1 tablet at bedtime Orally Once a dayTaking Tylenol , Notes: PRNTaking Xarelto Taking zzzCompression Stockings 20-30mm Hg 1 pair closed toe- knee high . . .Not-Taking/PRNWarfarin Sodium Vitamin B12 once a monthAtenolol 50 MG Tablet 1 tablet Orally Once a dayWarfarin Sodium 2.5 MG Tablet 1 tablet Orally Once a dayZetia 10 MG Tablet 1 tablet Orally Once a dayPotassium Bicarb-Citric Acid 10 MEQ 1 tablet Orally Once a daySimvastatin 40 MG Tablet Orally Once a dayOxycodone-Ibuprofen 5 mg Tablet 1 tablet as needed Orally every 6 hrsMedication List reviewed and reconciled with the patientNot-Taking/PRN Warfarin Sodium Not-Taking/PRN Vitamin B12 once a monthNot-Taking/PRN Atenolol 50 MG Tablet 1 tablet Orally Once a dayNot-Taking/PRN Warfarin Sodium 2.5 MG Tablet 1 tablet Orally Once a dayNot-Taking/PRN Zetia 10 MG Tablet 1 tablet Orally Once a dayNot- Taking/PRN Potassium Bicarb-Citric Acid 10 MEQ 1 tablet Orally Once a dayNot-Taking/PRN Simvastatin 40 MG Tablet Orally Once a dayNot-Taking/PRN Oxycodone-Ibuprofen 5 mg Tablet 1 tablet as needed Orally every 6 hrsMedication List reviewed and reconciled with the patient * Allergies:?Advil: cant take due to takiung warfarainAleveMotrinCompazine 10mgHTC: rashCodeineyes[Allergies Verified] Objective: * Vitals:?Ht: 5 ft 4 in, Wt: 1 26, BMI: 21.63, Shoe size: 6-6.5, Wt-k.15 kg. * Examination: ???Nails: ?NAILS are:?Elongated, overgrown, dystrophic, lytic, greater than 3mm thick, discolored and friable with crumbly malodorous subungual debris, with pain on palpation 1-5 B/L.?Vascular: ?DP PULSES:?3/4, B/L.?PT PULSES:?/4, B/L.?CAPILLARY FILL TIME:?immediate, all digits, B/L.?SKIN TEMPERTURE GRADIENT OF THE LOWER EXTERMITIES:?normal, warm to cool, proximal to distal, B/L, B/L.?HAIR GROWTH/TEXTURE/ELASTICITY/TURGOR:?normal, B/L.?PIGMENTATION:?normal, B/L.?EDEMA:?absent, B/L.?Dermatologic: ?SKIN FINDINGS:?Skin exam reveals normal color, texture, elasticity, and turgor. There are no masses, nor excrescences. The interspaces are clear, B/L.?Orthopedic: ?MUSCLE STRENGTH:?5/5 all groups in a symmetrical fashion , B/L.?TAILOR'S BUNION:? Prominent, painful, inflamed 5th MTH/MPJ RIGHT.?Neurological: ?SENSORY:?Neurological exam reveals intact sensorium, pain sensation normal, vibration sensation intact, pinprick sensation is normal in the lower extremities, Pt denies, anesthesia, burning, paresthesia, tingling, B/L.?General Examination: ?GENERAL APPEARANCE:?Reveals a pleasant, alert, well nourished, well developed, well hydrated individual, who demonstrates proper attention to hygene/body habitus, and is in no acute distress.?ORIENTED:?person, place, and time.? Assessment: * Assessment: 1.?Pain in right foot - M79. 671?2.?Tailor's bunion of right foot - M21.621 (Primary), Acute problem, Complicated w/ Multiple Tx Options(4)?3.?Tinea unguium - B35.1?4.?Pain in right toe(s) - M79.674?5.?Pain in left toe(s) - M79.675? Plan: * Treatment: * Procedures:?Debride Nail 6-10:?Nail debridement?Nail debridement performed extensively to reduce/remove overall nail length, girth, thickness, subungual debris, and necrotic tissue, by manual and electrical means through the use of a nail nipper and/or dremel, to more viable healthy nail plate or bed tissue 1-5. Silver nitrate used for any petechial bleeding as necessary. Patient chooses, no pharmaceutical tx (96318).? * Procedure Codes:?03109 DEBRI DE NAIL, 6 OR MORE, Modifiers: XS * Preventive Medicine:? ??Counseling:?Discussion:?-14: Office or other outpatient visit for the evaluation and management of an established patient, which required a medically appropriate history and/or examination and MODERATE level of DECISION MAKING for: 1 OR MORE CHRONIC PROBLEM(S) THATS WORSENING, 2 STABLE CHRONIC PROBLEMS, A NEWLY DIAGNOSED PROBLEM WITH UNCERTAIN PROGNOSIS, AN ACUTE COMPLICATED INJURY WITH MULTIPLE TREATMENT OPTIONS, OR AN ACUTE PROBLEM WITH ACCOMPANYING SYSTEMIC SYMPTOMS, THAT POSE(S) A MODERATE RISK OF MORBIDITY. THIS CONDITION MAY ALSO INCLUDE RX DRUG MANAGEMENT, OR A DECISON FOR MINOR SURGERY. The visit on the day of the encounter encompassed interpreting the data and educating the patient as to the nature of their condition, treatment options available according to their individual PMH, meds, allergies, and overall health/living conditions, as well as any potential risks or complications that may occur from a failure to adhere to, and participate in, the recommended course of therapy. The discussion included a complete verbal, and/or written explanation of the examination results, any x-rays taken, the proposed diagnosis, and outline of the treatment plan. A schedule for future care needs was also explained. The patient verbalized an understanding of the instructions at this time and agreed to be an active participant in their treatment. If the patient should think of any questions or concerns after the visit, I have encouraged the patient to call the office.?Fungal Nail Counseling:?The patient was counseled on the diagnosis, potential etiologies (including, but not limited to, environmental factors, genetic, immune deficiency), and the multiple treatment options for Onychomycosis. We discussed the risks and benefits of each option from performing no treatment, to ultraviolet light shoe treatment, to laser nail treatment, to applying topical antifungals, to taking oral antifungal medication, to surgical removal of the involved nail(s) with or without performing a matricectomy, or any combination thereof. We discussed the advantages and disadvantages of each of possible treatment and importance for adherence to all the recommended therapies for optimum success. This includes the necessity for weekly emery board self nail home debridements, and control the nail and skin environment as much as possible by only using a fresh, dry pair of shoes/socks each day, as well as keeping the skin as dry as possible through the use of sprays/powders if necessary. The patient was instructed to discard the emery board after use to prevent reinfection of the involved nail(s). We discussed the mycological and visual clinical effectiveness of topical vs oral antifungal treatments as well as each ones potential side effects and/or any patient- specific medication interactions. We discussed the reasons behind the important requirement of regular liver function testing with oral antifungal therapy for safety. Patient questions regarding use, dosage, successful outcomes, blood tests, and possible pharmaceutical interactions were reviewed and the patient verbalized that all answers were clearly understood.?Metatarsalgea:?I explained to the patient the possible etiologies of their Metatarsalgea Foot pain, including foot type/shoegear/activity level/exercise routine and the risks/benefits of all the different treatment options for pain including: No treatment at all, Rest, Ice, NSAIDs(only if well tolerated after meals), New/supportive Shoegear, Strappings and Tapings, Foot/Ankle AFO Bracing, Stretching exercises, Deep Tissue Massage, Arch support/shoe inserts, Custom orthoses, Topical analgesics including Aspercream/Voltaren gel, Physical Therapy, Cortisone injection therapy, EPAT/ESWT. Advantages and disadvantages of each option were discussed and the patients questions re: shoegear, custom vs prefabricated inserts, activity level, PO vs Topical medications (and their respective potential complications/drug interactions/side effects), and consistency in home treatment regimens for optimal success were answered to their verbally confirmed satisfaction.?Shoe Gear Counseling:?The patient and I reviewed the types of shoes they should be wearing. My recommendation included obtaining a well-fitted shoe with a good supportive, non-foldable nor twistable sole, plenty of toe/room for the forefoot, and proper arch support. Based on todays examination, I recommended the patient look for new shoes, by having their feet professionally measured. We discussed that generally the best time of the day for a shoe fitting is the afternoon. Different shoes types and brands to best match the patients occupation and vocation were discussed. Specific brand selection will be up to the patient, their individual foot condition/deformities, and fit. The patient and I reviewed the standard new shoe break in period by wearing them for a few hours a day while checking for redness or sores as wear time is increased. The patient verbally confirmed to understanding the information discussed.? * Follow Up:?2 Months * Images: * Sign off status: Completed true * Provider:?Rose Dan DPM Date:?10/2023 Generated for Celina schneider/Adonay/eTdequansmitting on:?01/22/2025 11:45 AM EDT History and Physical Notes * HPI (History of Present Illness) Category Sub-Category Detail Notes Category Not es Painful Nails Pt States Last PCP Visit: Date:: 12/14/2023 Foot Pain Location: Outside, Bottom, Forefoot, RIGHT Course: worse Aggravated: any pressure, standi ng, walking Treatments: rest/alter normal da jazzy activity Examination Category Sub-Category Detail Notes Category Not es Neurological SENSORY: Neurological exa m reveals intact sensorium, pain sensation normal, vibration sensation intact, pinprick sensation is normal in the lower extremities, Pt denies, anesthesia, burning, paresthesia, tingling, B/L Dermatologic SKIN FINDINGS: Skin exam reveal s normal color, texture, elasticity, and turgor. There are no masses, nor excrescences. The interspaces are clear, B/L Orthopedic TAILOR'S BUNION: Prominent, pain ful, inflamed 5th MTH/MPJ RIGHT MUSCLE STRENGTH: 5/5 all groups in a symmetrical fashion , B/L General Examination GENERAL APPEARANCE: Reveals a pleasant, alert, well nourished, well developed, well hydrated individual, who demonstrates proper attention to hygene/body habitus, and is in no acute distress ORIENTED: person, place, and t kristie Vascular DP PULSES (B): 3/4, B/L PT PULSES (B): 3/4, B/L CAPILLARY FILL TIME: immediate, all digi ts, B/L TEMPERTURE GRADIENT (C): normal, warm to cool, proximal to distal, B/L, B/L TROPHIC CONDITION-TEXTURE/ELASTICITY/TURGOR/HAIR GROWTH (B): normal, B/L EDEMA (C): absent, B/L PIGMENTATION: normal, B/L Nails NAILS are: Elongated, overg rown, dystrophic, lytic, greater than 3mm thick, discolored and friable with crumbly malodorous subungual debris, with pain on palpation 1-5 B/L
--- OUTSIDE RECORDS SUMMARY | 2025-01-22 11:46 | XMS_ITS ---
Author Organization [facility] Address [address] [place] [address] Care Team Providers Care Coil Strapper Name Role Phone Vinicius Burnett MD Primary Care Provider Apolinar Mills Jr REASON FOR VISIT ? If pt need F/U OV Encounters Encounter Location Date Provider Diagnosis [facility] [address] [place] [address] 06/21/2024 Apolinar Hogan Jr Plan Of Treatment Next Appt Details Provider Name:Apolinar angulo Jr, 02/25/2025 09:20:00 AM, [address], [address], [place], [address], Progress Notes * ARTI ALFARO ADOB:1939 (83 yo F)Acc No.[id number]:06/21/2024 Patient:?ARTI ALFARO :1940???Age:83 Y???Sex:Female Address:[address] [place], [place] [address] [address] * true * Date:? Generated for Mariiai jennie/Adonay/eTransmitting on:?01/22/2025 11:45 AM EDT
--- OUTSIDE RECORDS SUMMARY | 2025-01-22 11:46 | XMS_ITS | Patient Health Record ---
Author Organization [facility] Address [address] [place] [address] Care Team Providers Care Cell Stripper Final Name Role Phone Vinicius Burnett Primary Care Provider Unavailrachel JamilTia Unavailable [phone] ArielaRose sr Unavailable [phone] Allergies Allergen (clinical drug ingredient) Drug/Non Drug Allergy documented on EMR Reaction Allergy Type Onset Date Status HTC (uncoded) rash Allergy Active ibuprofen Advil cant take due to takiung warfarain Drug Allergy Active Aleve Unknown Drug Allergy Active Motrin Unknown Drug Allergy Active Compazine 10mg Unknown Drug Allergy Ac tive codeine Codeine Unknown Drug Allergy Active Reason For Referral No Information Medications Medication SIG (Take, Route, Frequency, Duration) Notes Start Date End Date Status Toviaz 4 MG 1 tablet Orally Once a day Active Aspirin 81 MG 1 tablet Orally Once a day PRN Active Atenolol 50 MG 1 tablet Orally Once a day Not-Taking Folic Acid Once a day Active Vitamin B12 once a month Not-T aking Gabapentin 300 MG 1-2 Orally twice a day Active Warfarin Sodium Not- Taking zzzCompression Stockings 20-30mm Hg . . . for . Active Xarelto Active Tylenol PRN Active Famotidine 40 MG 1 tablet at bedtime Orally Once a day for 30 day(s) Active Oxycodone-Ibuprofen 5 mg 1 tablet as nee ded Orally every 6 hrs Not-Taking Metoprolol Succinate 25 MG 1 capsule Ora lly twice a day Active Simvastatin 40 MG Orally Once a day Not-Taking Magnesium Oxide 400 MG 1 tablet as neede d Orally Once a day for 30 day(s) Active Potassium Bicarb-Citric Acid 10 MEQ 1 tablet Orally Once a day Not-Taking Myrbetriq 50 MG 1 tablet Orally Once a day for 30 day(s) Active Zetia 10 MG 1 tablet Orally Once a day Not-Taking Warfarin Sodium 2.5 MG 1 tablet Orally O nce a day Not-Taking Social History Tobacco Use: Social History Observation [...] Are you an other tobacco user? No Problems Problem Type SNOMED Code ICD Code Onset Dates Problem Status W/U Status Risk Notes Problem Acquired hammer toe of right foot (9022964315753 105) Other hammer toe(s) (acquired), right foot (M20.41) Active confirmed Problem Acquired hammer toe of left foot (3201442336600 103) Other hammer toe(s) (acquired), left foot (M20.42) Active confirmed Encounters Encounter Location Date Provider Diagnosis [facility] [address] [place] [address] 03/02/2024 Tiamarina Jamil Plan Of Treatment Pending Test Test Name Order Date [id number] NAIL, 1-5 08/09/2016 [id number] NAIL, 1-5 12/27/2016 [id number] NAIL, 1-5 07/17/2020 Insurance Providers Payer Name Payer Address Payer Phone Subscriber Number Group Number Insured Name Patient Relationship to Insured Coverage Start Date Coverage End Date Medicare National [employer] [address] [place] [address] [id number] Cande Fox Self - patient is the insured [employer] [facility] [address] [place] [address] [phone] [id number] Cande Fox Self - patient is the insured Medical (General) History Medical History History ICD Code Arthritis Back,Hip,and Knee pain Broken bones Cholesterol Cancer Cataracts High blood pressure Chicken pox Mumps Measles trotter cyst Anemia Headaches/Migraines Hiatal hernia Kidney disease Neuropathy Reflux ( GERD) Tuberculosis Bone implants/screws Transfusions Urinary tract infections Surgical History Surgery Date(Month/Year) right knee replacement 07/05/16 cystoscopy botox injection 03/15/22 Hospitalization History Reason Date(Month/Year) [facility] [place]- UTI 12/17 [facility] for ultrasound - pt developed trotter cyst
== END 2025-01-22 10:42 | disposition home or self-care (01) ==
PROVIDERS: PCP Internal Medicine; Visit Provider Surgery
DX: R19.7 Diarrhea, unspecified (principal); K80.50 Calculus of bile duct without cholangitis or cholecystitis without obstruction; K80.20 Calculus of gallbladder without cholecystitis without obstruction; K63.1 Perforation of intestine (nontraumatic)
CPT/HCPCS: 99213

== ENCOUNTER → 2025-01-22 10:05 | Outpatient (BNVA) | payer MEDICARE, SELFPAY | PROVIDERS: PCP Internal Medicine; Visit Provider Surgery | DX: K80.50 Calculus of bile duct without cholangitis or cholecystitis without obstruction (principal); K80.20 Calculus of gallbladder without cholecystitis without obstruction; K63.1 Perforation of intestine (nontraumatic); R19.7 Diarrhea, unspecified | CPT/HCPCS: 99212 ==

== ENCOUNTER 2025-02-20 07:30 | Outpatient (REF) | payer MEDICARE, SELFPAY ==
--- OUTSIDE RECORDS SUMMARY | 2025-02-20 07:33 | XMS_ITS ---
Author Organization [facility] Address [address] [place] [address] Care Team Providers Care Mail Caller Name Role Phone Vinicius Burnett Primary Care Provider Tia Shepard [phone] REASON FOR VISIT cx 03/06 Encounters Encounter Location Date Provider Diagnosis [facility] [address] [place] [address] 03/02/2024 Tia Jamil Plan Of Treatment No Information Progress Notes * Cande FOX ADOB:1939 (83 yo F)Acc No.[id number]:03/02/2024 Patient:?Shereen Foxzabeth Ana :1940???Age:83 Y???Sex:Female Address:[address] [place] [address], [address] * true * Date:? Generated for Printi ng/Fatriceg/eTransmitting on:?02/20/2025 07:33 AM EDT
--- OUTSIDE RECORDS SUMMARY | 2025-02-20 07:33 | XMS_ITS ---
Author Organization [facility] Address [address] [place] [address] Care Team Providers Care Beef Selector Name Role Phone Vinicius Burnett Primary Care Provider Unavailabl e Omero, Tia Unavailable [phone] Rose Dan [phone] Encounters Encounter Location Date Provider Diagnosis [address] [address] 03/06/2024 Rose Dan Plan Of Treatment No Information Progress Notes * Cande FOX ADOB:1939 (84 yo F)Acc No.[id number]:03/06/2024 Progress Note Patient:Cande ESQUIVEL Provider:?Rose Dan DPM :1940???Age:83 Y???Sex:Female D ate:03/06/2024 Address:[address] [place], [place] [id number] Pcp:Vinicius Burnett Subjective: * Chief Complaints: * ??? * Medical History:? Objective: * Vitals:? Assessment: Plan: * Treatment: * Images: * The named appointment provid er may or may not be the originator of this progress note, and it is not deemed complete until electronically signed by the appointment provider. Sign off status: Pending * Provider:?Rose Dan DPM Date:? Generated for Celina schneider/Adonay/eTransmitting on:?02/20/2025 07:33 AM EDT
--- OUTSIDE RECORDS SUMMARY | 2025-02-20 07:33 | XMS_ITS ---
Author Organization [facility] Address [address] [place] [address] Care Team Providers Care Wind Turbine Engineer Name Role Phone Vinicius Burnett Primary Care Provider Unavailabl e Omero Tia Unavailable [phone] ArielaRose sr Unavailable [phone] Allergies Allergen (clinical drug ingredient) Drug/Non Drug [...] 12/23/2023 Encounters Encounter Location Date Provider Diagnosis [facility] [address] [address] 12/23/2023 Rose Perica Pain in right foot [...] as necessary. Patient chooses, no pharmaceutical tx (06011) Progress Notes * Cande FOX ADOB:1939 (83 yo F)Acc No.[id number]:12/23/2023 Progress Note Patient:?Cande Fox Provider:?Rose Dan DPM :1940???Age:83 Y???Sex:Female D ate:12/23/2023 Address:[address] [place] [address] Pcp:Vinicius Burnett Subjective: * Chief Complaints: * [...] as necessary. Patient chooses, no pharmaceutical tx (02848).? * Procedure Codes:?14559 DEBRI DE NAIL, 6 OR MORE, Modifiers: [...] Dan DPM Date:?10/2023 Generated for Celina schneider/Adonay/eTdequansmitting on:?02/20/2025 07:33 AM EDT History and Physical Notes * [...]
--- OUTSIDE RECORDS SUMMARY | 2025-02-20 07:33 | XMS_ITS | Patient Health Record ---
Author Organization [facility] Address [address] [place] [address] Care Team Providers Care Ash Worker Name Role Phone Vinicius Burnett Primary Care Provider Unavailrachel JamilTia Unavailable [phone] ArielaRose sr Unavailable [phone] Allergies Allergen (clinical drug ingredient) Drug/Non Drug [...] Problem Acquired hammer toe of right foot (2598702754730 105) Other hammer toe(s) (acquired), right foot (M20.41) Active confirmed Problem Acquired hammer toe of left foot ([id number] 103) Other hammer toe(s) (acquired), left foot (M20.42) Active confirmed Encounters Encounter Location Date Provider Diagnosis [facility] [place] [address] [place] [address] 03/02/2024 Tiamarina Jamil Plan Of Treatment Pending Test Test Name Order Date [id number] NAIL, 1-5 08/09/2016 [id number] NAIL, 1-5 12/27/2016 [id number] NAIL, 1-5 07/17/2020 Insurance Providers Payer Name Payer Address Payer Phone Subscriber Number Group Number Insured Name Patient Relationship to Insured Coverage Start Date Coverage End Date Medicare National [employer] [address] [facility] [place] [address] [id number] Cande Fox Self - patient is the insured [employer] [facility] [address] [place] [address] [phone] [id number] Cande Fox Self - patient is [...] botox injection 03/15/22 Hospitalization History Reason Date(Month/[place] [facility] [place] [facility] [place] pt developed trotter cyst
[2025-02-20 09:59] LABS: MANUAL DIFF FLAG NO
[2025-02-20 10:11] LABS: Basophils Absolute Auto 0.1 X10*3/uL (0.0-0.2); Basophils Percent Auto 0.9 % (0-2); Eosinophils Percent Auto 0.7 % (0-4); Hematocrit 36.3 % (37.0-47.0); Hemoglobin 11.9 g/dl (12.0-16.0); Imm Gran Abs Auto 0.02 X10*3/uL (0.00-0.03); Imm Gran Pct Auto 0.4 % (0.0-0.4); Immature Retic Fraction 19.6 % (3.0-15.9); Lymphocytes Absolute Auto 0.9 X10*3/uL (1.2-4.9); Lymphocytes Percent Auto 16.6 % (20-40); Mean Corpuscular HGB Conc 32.8 g/dl (31.0-35.0); Mean Corpuscular Hemoglobin 31.5 pg (27.0-33.0); Mean Platelet Volume 10.6 fL (9.4-12.3); Monocytes Absolute Auto 0.8 X10*3/uL (0.1-1.2); Neutrophils Absolute Auto 3.6 x10*3/uL (2.0-8.3); Neutrophils Percent Auto 66.4 % (45-73); Platelet Count 170 X10*3/uL (160-400); Red Blood Count 3.78 X10*6/uL (4.20-5.50); Red Cell Distribution Width 15.6 % (11.0-16.0); Retic HGB Equivalent 33.6 pg (30.0-35.0); Reticulocyte Percent 2.2 % (0.5-1.8); Reticulocytes Absolute 0.083 X10*6/uL (0.026-0.095); White Blood Count 5.4 X10*3/uL (4.8-10.8)
[2025-02-20 10:54] LABS: Cholesterol 285 mg/dL (<200); HDL Cholesterol 127 mg/dL (>40); Iron 123 mcg/dL (30-160); LDL Cholesterol Calculated 138 mg/dL (<100); Magnesium 2.1 mg/dL (1.6-2.6); Percent Iron Saturation 33 % (15-50); Total Iron Binding Capacity 375 mcg/dL (228-428); Triglycerides 100 mg/dL (<150); Unsaturated Iron Binding 252 ug/dL
[2025-02-20 11:10] LABS: Ferritin 74 ng/mL (10-250); Free T4 (Free Thyroxine) 1.01 ng/dL (0.71-1.85); Thyroid Stimulating Hormone 2.46 uIU/mL (0.32-4.0)
[2025-02-20 11:12] LABS: Folate 15.8 ng/mL (> or = 4.0); Vitamin B12 407 pg/mL (200-900)
== END 2025-02-20 07:31 | disposition home or self-care (01) ==
LOC: HO.HMGCLDS 07:30
PROVIDERS: PCP Internal Medicine; Visit Provider Internal Medicine
DX: M47.816 Spondylosis without myelopathy or radiculopathy, lumbar region (principal); E78.00 Pure hypercholesterolemia, unspecified; R73.01 Impaired fasting glucose; K63.1 Perforation of intestine (nontraumatic); K80.20 Calculus of gallbladder without cholecystitis without obstruction
CPT/HCPCS: 36415; 80061; 82607; 82728; 82746; 83540; 83735; 84439; 84443; 85025; 85045

== ENCOUNTER 2025-02-22 14:03 | Outpatient (AMB) | payer MEDICARE, SELFPAY ==
--- NOTE | 2025-02-22 14:05 | MHC.PC.OV ---
Vital Signs 02/22/25 14:07 Height 5 ft 3 in Weight 120 lb 6 oz BMI 21.3 BP 120/64 Blood Pressure Location Lt brachial Position Sitting Pulse 103 H Pulse Source Pulse Oximeter Temp 97.3 F Temp Source Temporal Artery Scan Pulse Oximetry (%) 98 Oxygen Delivery Method Room Air Intake Visit Reasons: 3 month f/u Intake Note: Patient is here to follow up on PVD, Hypercholesterolemia, HTN. Weight Loss Centre Manager Required: No Tractor Operator Laser Leveling: Present Accompanied by: Spouse Allergies sulfamethoxazole [From Bactrim] Allergy (Severe, Verified 02/22/25 14:07) Itching trimethoprim [From Bactrim] Allergy (Severe, Verified 02/22/25 14:07) Itching cortisone [Cortisone] Allergy (Mild, Verified 02/22/25 14:07) PT STATES, hx TB IT COULD AFFECT CRYSTALS IN LUNG prochlorperazine [From Compazine] Allergy (Mild, Verified 02/22/25 14:07) LEG NUMBNESS hydrochlorothiazide Allergy (Unknown, Verified 02/22/25 14:07) RASH levofloxacin [Levaquin] Allergy (Unknown, Verified 02/22/25 14:07) Wakefulness, nausea, shaking Sulfa (Sulfonamide Antibiotics) Adverse Reaction (Intermediate, Verified 02/22/25 14:07) rash codeine Adverse Reaction (Unknown, Verified 02/22/25 14:07) NAUSEA/VOMITING chocolate Allergy (Unknown, Uncoded 02/22/25 14:07) severe headaches/vomiting Tobacco use date assessed: 02/22/25 Fall risk assessment: No Falls in past year Last assessed Fall Risk: 02/22/25 Dental Screening Dental Screen Date: 11/23/24 HPI 3 month f/u HPI Details History of Present Illness The patient is an 84-year-old female presenting with a follow-up for management of multiple chronic conditions, particularly focusing on gallstones. She has long-standing essential hypertension, impaired glucose tolerance, and a history of right breast cancer, monitored by hematology and oncology. Gallstones were discovered in a non-distended gallbladder, with the patient previously declining surgery and considering ERCP as an alternative. The patient's recent cholesterol readings indicated elevated levels, and her anemia is approaching normal status as assessed in previous blood work. Bone loss and the potential use of oral bisphosphonates have been topics of prior discussion. The patient reports persistent cough but declined further investigation. Continuous management of her chronic conditions through consultations and interventions in line with specialist recommendations remains the focus. Health Maintenance - Low-fat diet encouraged for cholesterol management - Consideration for oral bisphosphonates for bone loss discussed - Monitoring of anemia levels through regular blood work - Consulting gastroenterology regarding ERCP for gallstones Social History Review of Systems - Respiratory: Reports persistent cough - Musculoskeletal: No specific concerns reported - Gastrointestinal: No current report of significant symptoms beyond existing diagnosed conditions Physical Exam Results - Labs: Cholesterol elevated at 138 mg/dL, Anemia status noted nearly normal in last blood work Plan Ongoing management of gallstones will be considered with ERCP. The patient's hypercholesterolemia requires dietary management with a low-fat diet and may necessitate further intervention if unresolved. Anemia is improving, necessitating continued monitoring. Possible use of oral bisphosphonates for bone density issues will be evaluated. She will continue with her established regimen for hypertension, glucose control, and cancer follow-up. Coordinating with specialists for optimized care is intended for comprehensive disease management. Patient was informed and verbally consented to the use of an ambient scribe for clinic note documentation during this visit. Discussion Notes During the visit, I discussed with the patient the options available for managing her gallstones, focusing on the ERCP as a non-surgical route she is considering. We reviewed her general health maintenance strategies, emphasizing the importance of her low-fat diet to manage elevated cholesterol levels. Anemia's near-normal recent data was discussed, highlighting current strategies' success. We talked about oral bisphosphonates for her bone loss, evaluating risks and potential benefits. Follow-up, risk factors, and future anticipatory plans were addressed, with an emphasis on monitoring and adjusting management as necessary in collaboration with her specialist care teams. Patient Instructions - Follow a low-fat diet to help manage cholesterol levels. - Discuss with your inspector final assembly mechanical about the possibility of ERCP for gallstones. - Continue current anemia management and check blood work as scheduled. - Understand the options and risks about using bisphosphonates for bone health. [facility] Medical History Diarrhea Pressure ulcer Chronic bacteriuria Urinary incontinence Bilateral hip pain Venous insufficiency of both lower extremities Bilateral knee pain Arthritis of lumbosacral spine Chronic diarrhea TIA (transient ischemic attack) UTI (urinary tract infection) Hallucination Confusion Supratherapeutic INR Weakness Cognitive change Pernicious anemia Osteoporosis Peripheral neuropathy Impaired fasting glucose Irritable bowel syndrome Breast cancer Thrombocytopenia Hypomagnesemia Hx of hypercalcemia History of alcohol use B12 deficiency Fatty liver, alcoholic HTN (hypertension) Hx of metabolic acidosis GERD (gastroesophageal reflux disease) Hx of deep venous thrombosis Hx of tuberculosis History of pulmonary embolism History of right breast cancer Osteoarthritis of left knee Surgical History Hx of exploratory laparotomy (06/14/24) History of left knee surgery History of arthroplasty of left knee Hx of adenoidectomy History of esophagogastroduodenoscopy (EGD) History of evacuation of hematoma Hx of colonoscopy History of cataract surgery History of cystoscopy History of knee replacement procedure of right knee History of lumpectomy of right breast History of tonsillectomy H/O right mastectomy S/P SASHA-BSO (total abdominal hysterectomy and bilateral salpingo-oophorectomy) History of appendectomy Family History Father No problems noted. Mother No problems noted. Other No family history of cancer Social History (Updated 02/22/25 @ 14:13 by HEATHER Jenkins) Household Members: Spouse Housing: House Are you a primary career development manager to a significant other at home: No Do you presently have visiting nurse or other home services: No Alcohol intake: current Alcohol intake frequency: 0-2 drinks per day Alcohol type: other Comment: see RN note Patient Tobacco Use Status: Never used Tobacco e-Cigarette/Vaping Use: Never Used Second Hand Smoke Exposure: No Advance Directives Date on File: 12/24/21 service: No Current occupational status: retired Cognitive needs: No Hearing needs: No Vision needs: Yes Questionnaire PHQ-9 Over the last 2 weeks, how often have you been bothered by any of the following problems? 1. Little interest or pleasure in doing things: not at all 2. Feeling down, depressed, or hopeless: not at all 3. Trouble falling or staying asleep, or sleeping too much: not at all 4. Feeling tired or having little energy: nearly every day 5. Poor appetite or overeating: nearly every day 6. Feeling bad about yourself - or that you are a failure or have let yourself or your family down: not at all 7. Trouble concentrating on things, such as reading the newspaper or watching television: not at all 8. Moving or speaking so slowly that other people could have noticed. Or the opposite - being so fidgety or restless that you have been moving around a lot more than usual: not at all 9. Thoughts that you would be better off or of hurting yourself in some way: not at all Total score: 6 Depression Screening Interpretation: Positive Depression Screening Done: Yes Source: Developed by Drs. Praful Kohler, Vonda Vasquez, Jj Dewitt and colleagues, with an educational bharti from [employer]. Thrive Questionnaire Date Thrive assessed: 11/23/24 I am a: Patient What is your living situation today?: I have a steady place to live Within the past 12 months, did the food you bought not last and you didn't have the money to get more?: Never true Within the past 12 months, did you worry whether your food would run out before you got money to buy more?: Never true Do you have trouble paying for medicines?: No Do you have trouble getting transportation to medical appointments?: No Do you have trouble paying your heating and electricity bill?: No Do you have trouble taking care of your child, family member or friend?: No Do you have trouble with day-to-day activities such as bathing, preparing meals, shopping, managing finances, etc.?: No Are you currently unemployed and looking for a job?: Yes Are you interested in more education?: No Please select the resources that you would like help with: None Currently or been in a relationship where the following occur: No concerns reported THRIVE Score: 0 AUDIT C Alcohol Use Questionnaire (AUDIT-C) 1. How often do you have a drink containing alcohol?: Monthly or less 2. How many drinks containing alcohol do you have on a typical day when you are drinking?: 1 or 2 3. How often do you have six or more drinks on one occasion?: Daily or almost daily Total Score: 5 CEDRIC-7 AMB Questionnaire CEDRIC-7 Date CEDRIC - 7 assessed: 11/23/24 Feeling nervous, anxious, or on edge: 0 = Not at all Not being able to stop or control worryin = Not at all Worrying too much about different things: 0 = Not at all Trouble relaxin = Not at all Being so restless that it is hard to sit still: 0 = Not at all Becoming easily annoyed or irritable: 0 = Not at all Feeling afraid as if something awful might happen: 0 = Not at all Total CEDRIC-7 score (0-4 normal; 5-9 mild; 10-14 moderate; 15-21 severe): 0 Source: Developed by Drs. Praful Kohler, Vonda Vasquez, Jj Dewitt and colleagues, with an educational bharti from [employer]. Physical exam (Primary Care) Vital Signs: Last Vital Signs Temp 97.3 F 02/22/25 14:07 Pulse 103 H 02/22/25 14:07 BP 120/64 02/22/25 14:07 Pulse Ox 98 02/22/25 14:07 Oxygen Delivery Method Room Air 02/22/25 14:07 BMI result Body Mass Index 21.3 Tobacco/Smoking Status: Tobacco use Status Tobacco use date assessed 02/22/25 02/22/25 14:15 Patient Tobacco Use Status Never used Tobacco 02/22/25 14:15 e-Cigarette/Vaping Use Never Used 02/22/25 14:15 PHQ-9: PHQ-9 Score PHQ-9: Total score 6 02/22/25 14:21 Depression Screening Interpretation: Positive Thrive Assessment: Date of Thrive Assessment Date Thrive assessed 11/23/24 02/22/25 14:15 Currently or been in a relationship where the following occur: No concerns reported Const General: alert; No acute distress Eyes Conjunctivae: conjunctivae normal Resp Auscultation: clear to auscultation bilaterally Cardio Rate: regular rate Rhythm: regular rhythm GI Inspection: Yes normal to inspection Extrem General: Yes normal to inspection and No edema Coding Level of Care Code Est Pt Level 4 (69302) Diagnoses Cholelithiasis K80.20 Biliary obstruction: without biliary obstruction Cholecystitis acuity: chronic Cholelithiasis location: gallbladder and bile duct History of pulmonary embolism Z86.711 OAB (overactive bladder) N32.81 History of right breast cancer Z85.3 Impaired fasting glucose R73.01 Essential hypertension I10 Hypertension type: essential hypertension GERD (gastroesophageal reflux disease) K21.9 Assessment & Plan Assessment & Plan (1) Cholelithiasis: Code(s): K80.20 - Calculus of gallbladder without cholecystitis without obstruction Category: Medical Qualifiers: Biliary obstruction: without biliary obstruction Cholecystitis acuity: chronic Cholelithiasis location: gallbladder and bile duct Plan: Low-fat diet and continue to monitor. Option of getting ERCP done (2) History of pulmonary embolism: Code(s): Z86.711 - Personal history of pulmonary embolism Category: Medical (3) OAB (overactive bladder): Code(s): N32.81 - Overactive bladder Category: Medical Plan: Timed voiding meaning every 1-2 hours even if you do not feel like urinating empty the bladder, avoid drinks with high sweet content like juices or caffeine that makes her urinate, 2 hours before you sleep hold liquids so that in the morning you do not get the bladder to be too full. (4) History of right breast cancer: Comment: 2006 lumpectomy and chemotherapy Code(s): Z85.3 - Personal history of malignant neoplasm of breast Category: Medical Plan: Patient continues to follow-up with Hematology-Oncology (5) Impaired fasting glucose: Code(s): R73.01 - Impaired fasting glucose Category: Medical Plan: Decrease the amount of carbohydrate intake, pasta, bread, rice and potatoes are all sugar and that is aside from all the sweet stuff, remember that fruits are good but they are Sweet also. (6) HTN (hypertension): Code(s): I10 - Essential (primary) hypertension Category: Medical Qualifiers: Hypertension type: essential hypertension Qualified Code(s): I10 - Essential (primary) hypertension Plan: Continue with blood pressure medication. Decrease salt intake and exercise (7) GERD (gastroesophageal reflux disease): Comment: Albarran's esophagus, April 2014 EGD moderate GERD 2019 Code(s): K21.9 - Gastro-esophageal reflux disease without esophagitis Category: Medical Plan: Avoid the foods that causes that usually spicy foods, tomato products, juices, coffee, soda and foods that your sensitive to. After eating do not lie down, allow 3-4 hours before in lie down. And keep the head of bed above 30 degrees to avoid the acid from going up. Plan History of Present Illness The patient is an 84-year-old female presenting with concerns related to osteoporosis management. She was informed previously about her bone density by Dr. Hernandez, noting weak bones and the schedule of her bone density tests, which occur biennially, the last being August 2023. She voiced interest but also hesitation regarding medications like raloxifene due to potential side effects impacting her anxiety, and is a consideration for alendronate was discussed. Her medical history includes hyperlipidemia with an LDL level of 138 mg/dL, status stable when compared to earlier test findings. She has experienced gallbladder stones previously managed via ERCP, but dietary adjustments were recommended to prevent gallbladder irritation, yet occasionally indulges in fatty foods like pastries. The patient expressed anxiety, noticed particularly in interaction with new technology, which adds to her stress levels. Health Maintenance - Periodic bone density screening every two years with the next review due later this year (post-August). - Discussion on possibly commencing osteoporosis treatment with oral bisphosphonates after dental review. - Monitoring of cholesterol levels with dietary advice recommending reduced intake of fatty foods due to past gallbladder issues. Social History - Current dietary habits include occasional consumption of pastries and foods with butter, despite recommendations. - Reports performing household activities and somewhat engages in daily living functions but shows reluctance or increased anxiety with newer technological interactions or procedures. Review of Systems - Musculoskeletal: Reports previous bone density testing concerns and weak bones, denies any recent fractures. - Psychological: Reports anxiety symptoms, exacerbated by technological interfaces. - Gastrointestinal: Reports history of gallbladder stones and previous ERCP; advised dietary limitations. - Cardiovascular: Reports stable hyperlipidemia; on a low-fat diet. Physical Exam Results - Labs: LDL cholesterol is 138 mg/dL. - Prior bone density tests done per protocol (biennially), last recorded in August 2023. Plan The plan for osteoporosis management involves the potential commencement of alendronate treatment, depending on the dental assessment outcomes. Dietary recommendations were reiterated, focusing on minimizing the intake of fatty foods to manage hyperlipidemia and gallbladder health. Counseling on lifestyle changes, including dietary modifications, was offered. Anxiety management options were noted, especially when dealing with procedural tasks. Continued monitoring with regular lab work is planned due to the concurrent use of blood thinners. Patient was informed and verbally consented to the use of an ambient scribe for clinic note documentation during this visit. Discussion Notes I discussed with the patient the risks and benefits of beginning alendronate therapy for osteoporosis, indicating that its primary advantage is reducing the rate of bone loss. I also highlighted the necessity of having a dental check-up to preemptively address potential dental issues due to bisphosphonate use. For her hyperlipidemia, I emphasized dietary changes, especially limiting fatty foods to prevent cholesterol elevation and further gallbladder complications. We revisited her current cholesterol levels to emphasize the importance of dietary interventions. Her existing anxiety, particularly around new technology, was acknowledged, and reassurance was provided. Although anxious reactions were noted in terms of technology, I reassured her that patience and gradual exposure could potentially ease this. Further discussions included addressing her readiness for maintaining regular follow-ups and routine lab checks to ensure optimal management. Patient Instructions - Schedule a dental visit before starting any new bone-strengthening medication. - Take alendronate as advised, if started, following exact instructions. - Avoid fatty foods, including pastries and butter, to manage cholesterol and gallbladder health. - Follow up with scheduled blood tests to monitor kidney and liver function. - Seek assistance and gradually engage with new technology to ease anxiety. - Adhere to follow-up appointments for ongoing health management. Orders: Orders Complete Blood Count Auto Diff 3 Months Z86.711 - Personal history of pulmonary embolism Vitamin B12 and Folate 3 Months Z86.71 - Personal history of pulmonary embolism Comprehensive Met. Panel 3 Months Z86.711 - Personal history of pulmonary embolism Free T4 (Free Thyroxine) 3 Months Z86.711 - Personal history of pulmonary embolism Thyroid Stimulating Hormone 3 Months Z86.711 - Personal history of pulmonary embolism Vitamin D 25-OH Total 3 Months Z86.711 - Personal history of pulmonary embolism Lipid Panel 3 Months E78.00 - Pure hypercholesterolemia, unspecified, Z86.711 - Personal history of pulmonary embolism B Type Natriuretic Peptide 3 Months Z86.711 - Personal history of pulmonary embolism Hemoglobin A1c 3 Months Z86.711 - Personal history of pulmonary embolism
[2025-02-22 14:07] VITALS: BP 120/64; PULSE 103; TEMP 36.3; O2SAT 98; BMI 21.3
== END 2025-02-22 15:02 | disposition home or self-care (01) ==
LOC: HO.HMCH 14:04
PROVIDERS: PCP Internal Medicine; Visit Provider Internal Medicine
DX: K80.20 Calculus of gallbladder without cholecystitis without obstruction (principal); Z86.711 Personal history of pulmonary embolism; N32.81 Overactive bladder; Z85.3 Personal history of malignant neoplasm of breast; R73.01 Impaired fasting glucose; I10 Essential (primary) hypertension; K21.9 Gastro-esophageal reflux disease without esophagitis

== ENCOUNTER → 2025-02-22 14:03 | Outpatient (BNVA) | payer MEDICARE, SELFPAY | PROVIDERS: PCP Internal Medicine; Visit Provider Internal Medicine | DX: K80.20 Calculus of gallbladder without cholecystitis without obstruction (principal); N32.81 Overactive bladder; R73.01 Impaired fasting glucose; K21.9 Gastro-esophageal reflux disease without esophagitis; I10 Essential (primary) hypertension; Z86.711 Personal history of pulmonary embolism; Z85.3 Personal history of malignant neoplasm of breast | CPT/HCPCS: 99212 ==

== ENCOUNTER 2025-03-12 07:32 | Emergency (ER) | payer MEDICARE, SELFPAY ==
--- NOTE | ~2025-03-12 | CT_ITS ---
EXAMINATION: CT CHEST ANGIOGRAPHY WITH IV CONTRAST INDICATION: CP, elevated D-dimer COMPARISON: Comparison is made with the prior examination dated 04/04/2021. TECHNIQUE: Helical CT scan of the chest was performed following administration of intravenous contrast (65 mL Omnipaque 350). The contrast bolus was timed to optimally opacify the pulmonary arteries. Thin sections were obtained through the pulmonary arteries. Coronal and sagittal reformatted images were generated. 3D/MIP reconstructed images are also obtained and reviewed. This CT exam was performed with one or more of the following dose reduction techniques: automated exposure control, adjustment of the mA and/or kV according to patient size, use of iterative reconstruction technique. DLP: 287 mGy-cm CHEST: THYROID: The thyroid gland is unremarkable. PULMONARY ARTERIES: No intraluminal filling defects are identified within the pulmonary arteries to suggest pulmonary emboli. LUNGS: Again seen are fibrotic changes in both lungs. There is a tiny 2 mm nodule at the right lung apex (series 6, image 13) without change. Groundglass opacities at the left lung apex are also unchanged. MEDIASTINUM: There is no mediastinal lymphadenopathy. YANIRA: There is no hilar lymphadenopathy. CARDIOVASCULATURE: The heart is enlarged. There is no pericardial effusion. The thoracic aorta is normal in caliber. DEGREE OF CORONARY CALCIFICATION: not evaluable, due to dense contrast in the coronary arteries. PLEURA: There is a small left pleural effusion. There is no right pleural effusion. No pneumothorax. MAIN AIRWAYS: The mainstem bronchi and proximal branches are patent. AXILLA: There is no axillary lymphadenopathy. UPPER ABDOMEN: The visualized portions of the liver, spleen, and adrenals are unremarkable. BONES AND SOFT TISSUES: Unremarkable. CT/CT angio chest PE protocol IMPRESSION: 1. No evidence of pulmonary emboli. 2. Cardiomegaly and pulmonary fibrosis. 3. Small left pleural effusion. Electronically signed by: Praful Leon MD 03/12/2025 12:24 PM EDT
--- NOTE | ~2025-03-12 | XR_ITS ---
EXAMINATION: XR CHEST 1 VIEW HISTORY: chest pain COMPARISON: Comparison is made with the prior examination dated 04/27/2024. FINDINGS: A single AP portable view of the chest performed at 9:00 AM is submitted. Again seen are increased interstitial markings bilaterally, similar to the prior study. No new airspace opacity is identified. There is no pleural effusion, pneumothorax, or pulmonary vascular congestion. The heart is normal in size. There is degenerative disc disease of the spine. XR/XR chest 1V IMPRESSION: No acute cardiopulmonary abnormality. Electronically signed by: Praful Leon MD 03/12/2025 09:12 AM EDT
[2025-03-12 07:42] VITALS: BP 162/79; BP 168/82; PULSE 102; PULSE 96; RESP 20; TEMP 36.4; O2SAT 100; BMI 20.6
--- NOTE | 2025-03-12 07:47 | ECG_ITS ---
Test Reason : cp Blood Pressure : */* mmHG Vent. Rate : 93 BPM Atrial Rate : 93 BPM P-R Int : 144 ms QRS Dur : 90 ms QT Int : 378 ms P-R-T Axes : 44 3 56 degrees QTcB Int : 469 ms Normal sinus rhythm Normal ECG When compared with ECG of 10-Jun-2024 13:06, No significant change was found Referred By: Generic ED Physician Electronically Signed By: James Rankin
--- NOTE | 2025-03-12 08:05 | ED.CHESTPAIN ---
HPI - Chest Pain General Chief Complaint: Chest Pain Stated Complaint: CP W/INSPIRATION,L SHOULDER NUMBNESS,ASA GIVEN Time Seen by Provider: 03/12/25 07:57 Source: patient Mode of arrival: ambulatory Limitations: no limitations History of Present Illness ED Provider: DR. Jack HPI narrative: 84-year-old female came in for evaluation of left-sided chest pain started at 02:00 woke her up from sleep, pain has been constant since 02:00, no trauma or injury to the chest, no radiation of the pain, pain is associated with left upper extremity numbness, no coughing, no recent travel, no lower extremity swelling or tenderness. pain started as 10/10 now it is 3/10 improved with sitting up And worse with taking deep breath. No fever, no chills, no coughing, no sick contacts. Related Data Home Medications ?Medication ?Instructions ?Recorded ?Confirmed folic acid 800 mcg tablet 0.8 mg PO DAILY 06/10/24 01/22/25 Previous Rx's ?Medication ?Instructions ?Recorded right mastectomy bra #2 ea 10/22/22 omeprazole 40 mg capsule,delayed 40 mg PO BID@0630,1630 #60 caps 06/20/24 release folic acid 1 mg tablet 1 mg PO DAILY #90 tabs 08/20/24 quetiapine 25 mg tablet (Seroquel) 25 mg PO DAILY #90 tabs 10/01/24 metoprolol tartrate 25 mg tablet 12.5 mg (1/2 x 25 mg) PO BID 90 10/04/24 days #90 tabs magnesium oxide 400 mg PO BID #180 tabs 10/31/24 gabapentin 300 mg capsule 300 mg PO BEDTIME 90 days #90 caps 11/01/24 Stair lift #1 ea 01/22/25 rivaroxaban 20 mg tablet (Xarelto) 20 mg PO DAILY #90 tabs 02/15/25 Allergies Allergy/AdvReac Type Severity Reaction Status Date / Time sulfamethoxazole Allergy Severe Itching Verified 03/12/25 07:43 [From Bactrim] trimethoprim [From Bactrim] Allergy Severe Itching Verified 03/12/25 07:43 cortisone [Cortisone] Allergy Mild PT STATES, Verified 03/12/25 07:43 hx TB IT COULD AFFECT CRYSTALS IN LUNG prochlorperazine Allergy Mild LEG Verified 03/12/25 07:43 [From Compazine] NUMBNESS hydrochlorothiazide Allergy Unknown RASH Verified 03/12/25 07:43 levofloxacin [Levaquin] Allergy Unknown Wakefulness, Verified 03/12/25 07:43 nausea, shaking Sulfa (Sulfonamide AdvReac Intermediate rash Verified 03/12/25 07:43 Antibiotics) codeine AdvReac Unknown NAUSEA/VOMI Verified 03/12/25 07:43 TING chocolate Allergy Unknown severe Uncoded 03/12/25 07:43 headaches/vomiting Review of Systems Review of Systems: All other systems are reviewed and are negative Constitutional: Reports as per HPI and Reports no additional constitutional complaints Eyes: Reports as per HPI and Reports no additional eye complaints Reports system reviewed and no additional complaints, except as documented Cardiovascular: Reports as per HPI and Reports no additional cardiovascular complaints Respiratory: Reports as per HPI and Reports no additional respiratory complaints Gastrointestinal: Reports as per HPI and Reports no additional gastrointestinal complaints Genitourinary: Reports no additional female genitourinary complaints Musculoskeletal: Reports no additional musculoskeletal complaints Skin/Breast: Reports system reviewed and no additional complaints, except as docu Psychiatric: Reports no additional psychiatric complaints Endocrine: Reports no additional endocrine complaints Hematologic/Lymphatic: Reports no additional hematologic/lymphatic complaints Allergic/Immunologic: Reports no additional allergic/immunologic complaints Reports system reviewed and no additional complaints, except as documented and Reports Abnormal speech present [facility] Past Medical History Medical History Diarrhea Pressure ulcer Chronic bacteriuria Urinary incontinence Bilateral hip pain Venous insufficiency of both lower extremities Bilateral knee pain Arthritis of lumbosacral spine Chronic diarrhea TIA (transient ischemic attack) UTI (urinary tract infection) Hallucination Confusion Supratherapeutic INR Weakness Cognitive change Pernicious anemia Osteoporosis Peripheral neuropathy Impaired fasting glucose Irritable bowel syndrome Breast cancer Thrombocytopenia Hypomagnesemia Hx of hypercalcemia History of alcohol use B12 deficiency Fatty liver, alcoholic HTN (hypertension) Hx of metabolic acidosis GERD (gastroesophageal reflux disease) Hx of deep venous thrombosis Hx of tuberculosis History of pulmonary embolism History of right breast cancer Osteoarthritis of left knee Surgical History Hx of exploratory laparotomy (06/14/24) History of left knee surgery History of arthroplasty of left knee Hx of adenoidectomy History of esophagogastroduodenoscopy (EGD) History of evacuation of hematoma Hx of colonoscopy History of cataract surgery History of cystoscopy History of knee replacement procedure of right knee History of lumpectomy of right breast History of tonsillectomy H/O right mastectomy S/P SASHA-BSO (total abdominal hysterectomy and bilateral salpingo-oophorectomy) History of appendectomy Family History Family History Father No problems noted. Mother No problems noted. Other No family history of cancer Social History Social History Household Members: Spouse Housing: House Are you a primary healthcare architect to a significant other at home: No Do you presently have visiting nurse or other home services: No Alcohol intake: current Alcohol intake frequency: 0-2 drinks per day Alcohol type: other Comment: see RN note Patient Tobacco Use Status: Never used Tobacco Smoked in Last 30 Days: No e-Cigarette/Vaping Use: Never Used Second Hand Smoke Exposure: No Advance Directives: Yes Advance Directives on File: Yes Advance Directives Date on File: 12/24/21 Do you have a plan to hurt others: No Plan service: No Current occupational status: retired Cognitive needs: No Hearing needs: No Vision needs: Yes Physical Exam Vital Signs: Vital Signs: Last Vital Signs Temp 97.9 F 03/12/25 12:13 Pulse 91 03/12/25 12:13 Resp 14 03/12/25 12:13 BP 144/67 H 03/12/25 12:13 Pulse Ox 98 03/12/25 12:13 O2 Del Method Room Air 03/12/25 12:13 BMI result Body Mass Index 20.6 Vital signs have been reviewed and appear to be correct. Blood pressure elevated. Heart rate normal. Respiratory rate normal. Temperature normal. Oxygen saturation normal. Appearance: Alert. Oriented X3. No acute distress. Head: Normal external exam. Normocephalic. Atraumatic. No Burt signs noted. No raccoon eyes noted Eyes: PERRLA. EOMI. Conjunctiva and sclera normal. Eyelids normal. ENT: TM's Normal. Pharynx normal. Uvula midline. Moist mucous membranes. No trismus noted. No drooling noted. No muffled voice noted. Neck: Normal inspection. Neck supple. FROM. No adenopathy. Thyroid Normal. No meningeal signs. No neck mass noted. CVS: Normal heart rate and rhythm. Heart sound normal. No murmurs noted. Pulses normal throughout. Respiratory: No respiratory distress. Painless inspiration. Breath sounds normal. No wheezes/rales/rhonchi noted. Chest nontender. No accessory muscle usage noted or decreased air movement noted. Abdomen: Soft and nontender. Bowel sounds normal in all 4 quadrants. No distention noted. No organomegaly noted. No visible injury noted. Back: No CVA tenderness. Full range of motion noted. Skin: Skin warm and dry. Normal skin color. Normal skin turgor. No rashes/lesions/lacerations noted. Extremities: No lower extremity edema. Extremities exhibit normal range of motion. Extremities nontender. Neuro: Oriented X 3. Cranial nerve exam: II-XII are grossly intact No motor deficit. No sensory deficit. Reflexes normal. Course Reevaluation(s) Reevaluation #1: CTA of the chest shows no acute intrathoracic pathology including pulmonary embolism, and dissection. Troponin is negative x2. Patient explain the pain is worse when she lay supine if she sit up pain is better. Time: 14:59 Medications Administered Discontinued Medications Generic Name Dose Route Start Last Admin Trade Name Freq PRN Reason Stop Dose Admin Iohexol 100 ml 03/12/25 11:56 03/12/25 11:56 Iohexol 350 Mg/Ml 100 Ml Infus..Btl IV 03/12/25 11:57 65 ml ONCE ONE Administration Medical Decision Making Differential Diagnosis Differential Diagnoses: The differential diagnosis associated with the presentation includes ( ACS, pulmonary embolism, pneumonia, pneumothorax, pleural effusion, aortic dissection, electrolyte derangement, severe anemia.) Admission/Observation Consideration of admission/observation: Escalation of care including admission/observation considered Lab Data MDM Lab Attestation statement: I reviewed the patient's lab results. 03/12/25 08:04 03/12/25 08:40 Labs: Lab Results 03/12/25 03/12/25 03/12/25 Range/Units 08:04 08:40 13:06 WBC 6.5 (4.8-10.8) X10*3/uL RBC 3.52 L (4.20-5.50) X10*6/uL Hgb 11.3 L (12.0-16.0) g/dl Hct 33.6 L (37.0-47.0) % MCV 95.5 (80.0-98.0) fL MCH 32.1 (27.0-33.0) pg MCHC 33.6 (31.0-35.0) g/dl RDW 16.1 H (11.0-16.0) % Plt Count 158 L (160-400) X10*3/uL MPV 10.3 (9.4-12.3) fL Immature Gran % (Auto) 0.5 H (0.0-0.4) % Neut % (Auto) 71.1 (45-73) % Lymph % (Auto) 9.0 L (20-40) % Taylor % (Auto) 18.7 H (2-11) % Eos % (Auto) 0.2 (0-4) % Baso % (Auto) 0.5 (0-2) % Lymph # (Auto) 0.6 L (1.2-4.9) X10*3/uL Taylor # (Auto) 1.2 (0.1-1.2) X10*3/uL Eos # (Auto) 0.0 (0.0-0.4) X10*3/uL Baso # (Auto) 0.0 (0.0-0.2) X10*3/uL Abs Immat Gran (auto) 0.03 (0.00-0.03) X10*3/uL Absolute Neuts (auto) 4.6 (2.0-8.3) x10*3/uL Absolute Nucleated RBC 0.000 (0.0-0.012) X10*3/uL Nucleated RBC % (auto) 0.0 (0.0-0.2) /100WBC PT 23.2 H (10.9-12.4) SEC INR 2.0 H (0.9-1.1) D-Dimer High Sensitivty 427 NG/ML Sodium 136 (135-145) mmol/L Potassium 4.3 (3.3-5.1) mmol/L Chloride 102 (96-108) mmol/L Carbon Dioxide 24 (22-29) mmol/L Anion Gap 14 (12-20) BUN 17 H (9-16) mg/dL Creatinine 1.07 (0.5-1.4) mg/dL Estim Creat Clear Calc 34.8 Estimated GFR 49 Random Glucose 106 (60-115) mg/dL Calcium 8.6 (8.4-10.2) mg/dL Total Bilirubin 0.8 (0.0-1.0) mg/dL AST 26 (5-31) U/L ALT 7 (0-31) U/L Alkaline Phosphatase 137 H (39-117) U/L Troponin I High Sens < 2.7 2.7 (<3.5-17.0) ng/L Total Protein 7.0 (6.5-8.0) g/dL Albumin 3.5 (3.5-5.0) g/dL Independent Interpretation I performed an independent interpretation of an: Plain X-Ray ( chest: No acute cardiopulmonary abnormality. ) and CT Scan ( CT angiogram of the chest: No pulmonary embolism) Radiology Impression Discussion of test interpretation with radiology: I have reviewed the radiologist's reading. Discharge Plan Discharge Clinical Impression: Chest pain Patient Disposition: Home, Self-Care Instructions: Chest Pain (ED) Prescriptions: No Action quetiapine [Seroquel] 25 mg tablet 25 mg PO DAILY Qty: 90 2RF metoprolol tartrate 25 mg tablet 12.5 mg PO BID 90 Days Qty: 90 3RF magnesium oxide 400 mg magnesium tablet 400 mg PO BID Qty: 180 2RF gabapentin 300 mg capsule 300 mg PO BEDTIME 90 Days Qty: 90 3RF Xarelto 20 mg tablet 20 mg PO DAILY Qty: 90 0RF Rx Instructions: must administer with evening meal folic acid 1 mg Tablet 1 mg PO DAILY Qty: 90 3RF folic acid 800 mcg Tablet 0.8 mg PO DAILY omeprazole 40 mg Capsule,Delayed Release(Dr/Ec) 40 mg PO BID@0630,1630 Qty: 60 0RF (DME) right mastectomy bra See Rx Instructions .Route .MEDSUPPLY Qty: 2 0RF Rx Instructions: As directed (DME) Stair lift See Rx Instructions .Route .MEDSUPPLY Qty: 1 0RF Rx Instructions: For customer # [id number] Referrals: Lex,Vinicius Magdaleno MD [Primary Care Provider] - Print Language: Singaporean
[2025-03-12 08:09] LABS: MANUAL DIFF FLAG NO
[2025-03-12 08:11] LABS: Basophils Percent Auto 0.5 % (0-2); Eosinophils Percent Auto 0.2 % (0-4); Hematocrit 33.6 % (37.0-47.0); Hemoglobin 11.3 g/dl (12.0-16.0); Imm Gran Abs Auto 0.03 X10*3/uL (0.00-0.03); Imm Gran Pct Auto 0.5 % (0.0-0.4); Lymphocytes Absolute Auto 0.6 X10*3/uL (1.2-4.9); Mean Corpuscular HGB Conc 33.6 g/dl (31.0-35.0); Mean Corpuscular Hemoglobin 32.1 pg (27.0-33.0); Mean Corpuscular Volume 95.5 fL (80.0-98.0); Mean Platelet Volume 10.3 fL (9.4-12.3); Monocytes Absolute Auto 1.2 X10*3/uL (0.1-1.2); Monocytes Percent Auto 18.7 % (2-11); Neutrophils Absolute Auto 4.6 x10*3/uL (2.0-8.3); Neutrophils Percent Auto 71.1 % (45-73); Platelet Count 158 X10*3/uL (160-400); Red Blood Count 3.52 X10*6/uL (4.20-5.50); Red Cell Distribution Width 16.1 % (11.0-16.0); White Blood Count 6.5 X10*3/uL (4.8-10.8)
[2025-03-12 08:26] LABS: Prothrombin Time 23.2 SEC (10.9-12.4)
[2025-03-12 08:28] LABS: D Dimer High Sensitivity 427 NG/ML
[2025-03-12 09:15] LABS: Alanine Aminotransferase 7 U/L (0-31); Albumin Level 3.5 g/dL (3.5-5.0); Alkaline Phosphatase 137 U/L (39-117); Anion Gap 14 (12-20); Aspartate Amino Transferase 26 U/L (5-31); Bilirubin Total 0.8 mg/dL (0.0-1.0); Blood Urea Nitrogen 17 mg/dL (9-16); Calcium 8.6 mg/dL (8.4-10.2); Carbon Dioxide 24 mmol/L (22-29); Chloride 102 mmol/L (96-108); Creatinine Clr Calc Pharmacy 34.8; Estimated Glomerular Filt Rate 49; Glucose Random 106 mg/dL (60-115); Potassium 4.3 mmol/L (3.3-5.1); Sodium 136 mmol/L (135-145)
[2025-03-12 09:25] LABS: Troponin-I High Sensitivity < 2.7 ng/L (<3.5-17.0)
--- NOTE | 2025-03-12 09:37 | PC.NURSE ---
Addendum entered by Ying Segura RN 03/12/25 09:39: patient back at baseline heart rate, VSS. patient asymptomatic during event. states she continues to have chest pain Original Note: patient had run of sinus tach rate 160s, captured on tele. printed and ED provider notified. patient difficult stick. ED PA preparing for ultrasound IV for CT scan
[2025-03-12 09:38] VITALS: BP 146/76; PULSE 86; RESP 12; O2SAT 99
[2025-03-12] MEDS: iohexoL 350 MG/ML 100 ML INFUS..BTL IV (11:56)
[2025-03-12 12:13] VITALS: BP 144/67; PULSE 91; RESP 14; TEMP 36.6; O2SAT 98
[2025-03-12 13:39] LABS: Troponin-I High Sensitivity 2.7 ng/L (<3.5-17.0)
[2025-03-12 15:02] VITALS: BP 154/83; PULSE 85; RESP 17; TEMP 36.8; O2SAT 99
[2025-03-12 15:11] VITALS: BP 154/83; PULSE 85; RESP 17; TEMP 36.8; O2SAT 99
== END 2025-03-12 15:41 | disposition home or self-care (01) ==
PROVIDERS: Emergency Provider Emergency Medicine; PCP Internal Medicine
DX: J90 Pleural effusion, not elsewhere classified (principal); R07.89 Other chest pain; Z79.899 Other long term (current) drug therapy
CPT/HCPCS: 36415; 71045; 71275; 80053; 84484; 85025; 85379; 85610; 93005; 99284; Q9967

== ENCOUNTER → 2025-03-12 07:47 | Outpatient (BNV) | payer MEDICARE, SELFPAY | PROVIDERS: Emergency Provider Emergency Medicine; PCP Internal Medicine; Visit Provider Internal Medicine Cardiovascular Disease | DX: R07.9 Chest pain, unspecified (principal) | CPT/HCPCS: 93010 ==

== ENCOUNTER → 2025-03-12 07:47 | Outpatient (BNV) | payer MEDICARE, SELFPAY | PROVIDERS: Emergency Provider Emergency Medicine; PCP Internal Medicine; Visit Provider Radiology Diagnostic Radiology | DX: J90 Pleural effusion, not elsewhere classified (principal); J84.10 Pulmonary fibrosis, unspecified; I51.7 Cardiomegaly; R07.9 Chest pain, unspecified | CPT/HCPCS: 71045; 71275 ==

== ENCOUNTER 2025-04-05 13:23 | Outpatient (AMB) | payer MEDICARE, SELFPAY ==
--- NOTE | 2025-04-05 13:30 | MHC.OFFVIS ---
Intake Visit Reasons: frequent urination/especially at night Intake Note: Patient presents today for frequent urination Urology Medication:None Blood Thinner:Xarelto Antibiotic Allergies:Sulfa PVR:30ml Radio Television Technical Director Required: No Accompanied by: Spouse Allergies sulfamethoxazole (From Bactrim) Allergy (Severe, Verified 04/05/25 13:34) Itching trimethoprim (From Bactrim) Allergy (Severe, Verified 04/05/25 13:34) Itching cortisone (Cortisone) Allergy (Mild, Verified 04/05/25 13:34) PT STATES, hx TB IT COULD AFFECT CRYSTALS IN LUNG prochlorperazine (From Compazine) Allergy (Mild, Verified 04/05/25 13:34) LEG NUMBNESS hydrochlorothiazide Allergy (Unknown, Verified 04/05/25 13:34) RASH levofloxacin (Levaquin) Allergy (Unknown, Verified 04/05/25 13:34) Wakefulness, nausea, shaking Sulfa (Sulfonamide Antibiotics) Adverse Reaction (Intermediate, Verified 04/05/25 13:34) rash codeine Adverse Reaction (Unknown, Verified 04/05/25 13:34) NAUSEA/VOMITING chocolate Allergy (Unknown, Uncoded 03/12/25 07:43) severe headaches/vomiting HPI Comments Details: 04/05/25- Continues to have urgency and frequency Waking 3-4 times at night Failed Prior use of OAB meds History of Present Illness - The patient is an 84-year-old female presenting with symptoms of an overactive bladder and nocturia. - The patient reports experiencing an overactive bladder, primarily at night, leading to frequent awakenings every hour to urinate. - During the day, the symptoms are less severe, allowing her to go a couple of hours without needing to urinate. - The patient previously received Botox treatment for her bladder symptoms, which was not effective. - The patient also reports a history of diarrhea, which was previously frequent but has settled down with the use of Imodium Urinary Symptoms Review - Overactive bladder symptoms primarily occur at night, with the patient waking every hour to urinate. - During the day, the patient can go a couple of hours without needing to urinate. - Previous Botox treatment for bladder symptoms was ineffective. Discussion Notes I discussed with the patient the potential causes of her bladder control issues, including pelvic floor weakness and a spastic bladder. We reviewed the use of Botox and other medications as treatment options. I explained the sacral nerve stimulation test, which involves placing a lead in the lower back to assess its effectiveness in controlling bladder urgency/frequency and may also help with fecal incontinence. If successful, a pacemaker-like device could be implanted. We also discussed the importance of ruling out a urinary infection and the need for a urine sample. I advised the patient to bring a urine sample next week for further evaluation. [facility] Medical History Diarrhea Pressure ulcer Chronic bacteriuria Urinary incontinence Bilateral hip pain Venous insufficiency of both lower extremities Bilateral knee pain Arthritis of lumbosacral spine Chronic diarrhea TIA (transient ischemic attack) UTI (urinary tract infection) Hallucination Confusion Supratherapeutic INR Weakness Cognitive change Pernicious anemia Osteoporosis Peripheral neuropathy Impaired fasting glucose Irritable bowel syndrome Breast cancer Thrombocytopenia Hypomagnesemia Hx of hypercalcemia History of alcohol use B12 deficiency Fatty liver, alcoholic HTN (hypertension) Hx of metabolic acidosis GERD (gastroesophageal reflux disease) Hx of deep venous thrombosis Hx of tuberculosis History of pulmonary embolism History of right breast cancer Osteoarthritis of left knee Surgical History Hx of exploratory laparotomy (06/14/24) History of left knee surgery History of arthroplasty of left knee Hx of adenoidectomy History of esophagogastroduodenoscopy (EGD) History of evacuation of hematoma Hx of colonoscopy History of cataract surgery History of cystoscopy History of knee replacement procedure of right knee History of lumpectomy of right breast History of tonsillectomy H/O right mastectomy S/P SASHA-BSO (total abdominal hysterectomy and bilateral salpingo-oophorectomy) History of appendectomy Family History Father No problems noted. Mother No problems noted. Other No family history of cancer Social History Household Members: Spouse Housing: House Are you a primary vp care management to a significant other at home: No Do you presently have visiting nurse or other home services: No Alcohol intake: current Alcohol intake frequency: 0-2 drinks per day Alcohol type: other Comment: see RN note Patient Tobacco Use Status: Never used Tobacco e-Cigarette/Vaping Use: Never Used Second Hand Smoke Exposure: No Advance Directives Date on File: 12/24/21 service: No Current occupational status: retired Cognitive needs: No Hearing needs: No Vision needs: Yes Review of Systems Const All systems reviewed & are unremarkable except as noted in HPI and below Reports no additional complaints Eyes Reports no additional complaints ENT Reports no additional complaints Card Reports no additional complaints Resp Reports no additional complaints GI Reports no additional complaints Reports as per HPI Musc Reports no additional complaints Skin/Breast Reports system reviewed and no additional complaints, except as documented Neuro Reports no additional complaints Psych Reports no additional complaints Endo Reports no additional complaints Wesley/Lymph Reports no additional complaints Aller/Immun Reports no additional complaints Physical Exam Const General: cooperative, healthy appearing and no acute distress Orientation/consciousness: patient oriented x3 HEENT Head: Yes normal to inspection, Yes normocephalic and Yes atraumatic Eyes Conjunctivae: conjunctivae normal Neck Neck: Yes normal visual inspection and Yes trachea midline Chest Chest palpation & inspection: normal inspection of the chest Resp Effort & Inspection: normal respiratory effort GI Inspection: Yes normal to inspection Neuro General: patient oriented x3 Psych Appearance: grossly normal Assessment & Plan Assessment & Plan (1) Urinary frequency: Code(s): R35.0 - Frequency of micturition Category: Medical (2) Urinary urgency: Code(s): R39.15 - Urgency of urination Category: Medical (3) Nocturia more than twice per night: Code(s): R35.1 - Nocturia Category: Medical (4) History of stroke: Code(s): Z86.73 - Personal history of transient ischemic attack (TIA), and cerebral infarction without residual deficits Category: Medical Plan Plan - Percutaneous sacral nerve stimulation testing to assess its effectiveness in managing LUTS urgency/frequency Patient Instructions: The patient had an opportunity to ask questions regarding treatment plan. The patient expressed understanding and agreement with the above treatment plan. The patient is aware they should contact our office by phone for worsening of their current condition or the appearance of new symptoms. Compliance is encouraged with any medications and followup testing that is ordered. It is a privilege to be allowed the opportunity to participate in the urologic care of your patient. If you have any questions or concerns regarding treatment for the above conditions please do not hesitate to contact me. The office telephone contact is [phone]. This note is constructed in part using voice recognition software. While every effort has been made to ensure accuracy conference services coordinator errors may have been included. Yours sincerely, Madison Parikh MD Scribe Plan - Not visible on output: Patient was informed and verbally consented to the use of an ambient scribe for clinic note documentation during this visit. Coding Level of Care Code New Pt Level 4 (72704) Diagnoses Urinary frequency R35.0 Urinary urgency R39.15 Nocturia more than twice per night R35.1 History of stroke Z86.73
== END 2025-04-05 14:30 | disposition home or self-care (01) ==
LOC: HO.HUSH 13:23
PROVIDERS: PCP Internal Medicine; Visit Provider Urology
DX: R35.0 Frequency of micturition (principal); R39.15 Urgency of urination; R35.1 Nocturia; Z86.73 Personal history of transient ischemic attack (TIA), and cerebral infarction without residual deficits
CPT/HCPCS: 99214

== ENCOUNTER → 2025-04-05 13:23 | Outpatient (BNVA) | payer MEDICARE, SELFPAY | PROVIDERS: PCP Internal Medicine; Visit Provider Urology | DX: R35.0 Frequency of micturition (principal); R39.15 Urgency of urination; R35.1 Nocturia; Z86.73 Personal history of transient ischemic attack (TIA), and cerebral infarction without residual deficits | CPT/HCPCS: 99212 ==

== ENCOUNTER 2025-04-19 07:30 | Outpatient (REF) | payer MEDICARE, SELFPAY | END 2025-04-19 07:31 | disposition home or self-care (01) | LOC: HO.HMGCLNP 07:30 | PROVIDERS: Visit Provider Urology | DX: R39.15 Urgency of urination (principal); N32.81 Overactive bladder; R30.0 Dysuria; N39.0 Urinary tract infection, site not specified | CPT/HCPCS: 87086; 87088; 87186 ==

== ENCOUNTER 2025-04-23 09:35 | Outpatient (REF) | payer MEDICARE, SELFPAY ==
--- NOTE | 2025-04-23 11:50 | W.PM.OPN ---
Operative Note Operative Note Date of Service: 04/23/25 Narrative: PreOperative Diagnosis: 1) Overactive bladder with urinary urgency and frequency with incontinence Post Operative Diagnosis: 1) Overactive bladder with urinary urgency and frequency with incontinence (N39.41, R35.0) Procedure: 1.) Percutaneous implantation of neurostimulator electrode array including image guidance - performed bilateral - left and right S3 foramen Surgeon: Madison Parikh Anesthesia: Local, 1% lidocaine, plain Indications for procedure: - Failed multiple (more than 2) anticholinergic medications in attempt to manage urinary urgency and frequency Details of Procedure: After informed consent was verified the patient was brought to the interventional radiology suite. The patient was placed in a prone position and prepped and draped in a sterile fashion. Safety pause time-out was performed. Using the C-arm and Finder needle the S3 foramen exiting from the pelvic arch was marked horizontally from left to right as our horizontal marker. The left and right medial aspect of foramen were highlighted and aligned with the finder needle in a vertical fashion. Lines were marked. The intersection of these lines marked the entry point on the skin of the medial aspect of the left and right S3 foramen. Local anesthetic was infiltrated along the vertical aspect on both sides. The finder needle was inserted initially into the right targeted foramen. Imaging was performed in AP and lateral fashion. The needle was shown to into the S3 foramen. A 2nd needle was placed for entry into the left S3 foramen. The test engine mechanic was attached and assessed for subjective response from the patient of vibrations in rectal/vaginal areas. Good responses were confirmed at low amperage (under 1A) bilateral. Starting with the right side,the wire/test engine mechanic were inserted through the spinal needle. The spinal needle was removed leaving the test engine mechanic in place. Imaging used to confirm good placement of test engine mechanic. This procedure was repeated on the left side. The two test leads were then attached to the test generator and appropriate dressing was applied in order to maintain integrity for the duration of the outpatient test sequence. CPT 94665, plus 60569-90 for second lead placement. Inclusive of image guidance, [id number] - simple programming
== END 2025-04-23 09:36 | disposition home or self-care (01) ==
LOC: HO.RADIR 09:35
PROVIDERS: Visit Provider Urology
DX: N32.81 Overactive bladder (principal); R35.0 Frequency of micturition
CPT/HCPCS: 64561; C1787; C1897; J0665; J2003

== ENCOUNTER → 2025-04-23 09:35 | Outpatient (BNV) | payer MEDICARE, SELFPAY | PROVIDERS: Visit Provider Urology | DX: N32.81 Overactive bladder (principal); N39.41 Urge incontinence; R35.0 Frequency of micturition | CPT/HCPCS: 64561 ==

== ENCOUNTER 2025-04-29 12:56 | Outpatient (AMB) | payer MEDICARE, SELFPAY ==
--- OUTSIDE RECORDS SUMMARY | 2024-03-06 06:00 | XMS_ITS ---
Author Organization [facility] Address [address] [place] [id number] Care Team Providers Care Guest Services Coordinator Name Role Phone Vinicius Burnett Primary Care Provider Unavailabl e Black, Tia Unavailable [phone] Rose Dan [phone] Encounters Encounter Location Date Provider Diagnosis [address] [address] 03/06/2024 Rose Dan Plan Of Treatment No Information Progress Notes * Cande FOX ADOB:1939 (84 yo F)Acc No.[id number]:03/06/2024 Progress Note Patient: Cande ARORA Provider: Oscar Dan DPM :1940 A ge:83 Y S ex:Female Date:03/06/2024 Address:[address] [place], [place] [id number] Pcp:Vinicius Burnett Subjective: * Chief Complaints: * * Medical History: Objective: * Vitals: Assessment: Plan: * Treatment: * Images: * The named appointment provid er may or may not be the originator of this progress note, and it is not deemed complete until electronically signed by the appointment provider. Sign off status: Pending * Provider: Oscar Dan DPM Date: 03/06/2024 Generated for Mariiai ng/Fatriceg/eTransmitting on: 04/29/2025 01:22 PM EDT
--- NOTE | 2025-04-28 15:42 | MHC.OFFVIS ---
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 Required: No Accompanied by: Spouse Allergies sulfamethoxazole (From Bactrim) Allergy (Severe, Verified 05/01/25 13:12) Itching trimethoprim (From Bactrim) Allergy (Severe, Verified 05/01/25 13:12) Itching cortisone (Cortisone) Allergy (Mild, Verified 05/01/25 13:12) PT STATES, hx TB IT COULD AFFECT CRYSTALS IN LUNG prochlorperazine (From Compazine) Allergy (Mild, Verified 05/01/25 13:12) LEG NUMBNESS hydrochlorothiazide Allergy (Unknown, Verified 05/01/25 13:12) RASH levofloxacin (Levaquin) Allergy (Unknown, Verified 05/01/25 13:12) Wakefulness, nausea, shaking Sulfa (Sulfonamide Antibiotics) Adverse Reaction (Intermediate, Verified 05/01/25 13:12) rash codeine Adverse Reaction (Unknown, Verified 05/01/25 13:12) NAUSEA/VOMITING chocolate Allergy (Unknown, Uncoded 03/12/25 07:43) severe headaches/vomiting Medication List - Last Reconciled 04/29/25 by Madison Parikh MD folic acid 0.8 mg PO DAILY folic acid 1 mg PO DAILY gabapentin 300 mg PO BEDTIME 90 days magnesium oxide 400 mg PO BID metoprolol tartrate 12.5 mg (1/2 x 25 mg) PO BID 90 days nitrofurantoin monohyd/m-cryst 100 mg (Macrobid) 100 mg PO BID 10 days omeprazole 40 mg PO BID@0630,1630 quetiapine (Seroquel) 25 mg PO DAILY [right mastectomy bra As directed] rivaroxaban (Xarelto) 20 mg PO DAILY [Stair lift For customer # [id number]] vibegron (Gemtesa) 75 mg PO DAILY HPI Comments Details: 04/29/2025--status post bilateral test leads S3 History of Present Illness - The patient is an 84-year-old female presenting with urinary urgency and frequency. - She has experienced intractable urgency and frequency, with episodes of diarrhea associated with fecal incontinence. - Chronic diarrhea is present, with fecal leakage once or twice monthly, typically post-diarrhea episodes. - A bilateral test technician placement for sacral neuromodulation was performed, leading to symptom improvement. - Post-procedure, there have been no episodes of fecal incontinence and decreased urinary frequency. - Daytime urgency is not problematic, but nocturia occurs up to four times nightly, reduced from hourly occurrences pre-procedure. - Occasional daytime urinary leakage is reported, though not consistently. - The patient has decided she does not want to proceed with pacemaker implant at this time. -[facility]emtesa [facility] Medical History Diarrhea Pressure ulcer Chronic bacteriuria Urinary incontinence Bilateral hip pain Venous insufficiency of both lower extremities Bilateral knee pain Arthritis of lumbosacral spine Chronic diarrhea TIA (transient ischemic attack) UTI (urinary tract infection) Hallucination Confusion Supratherapeutic INR Weakness Cognitive change Pernicious anemia Osteoporosis Peripheral neuropathy Impaired fasting glucose Irritable bowel syndrome Breast cancer Thrombocytopenia Hypomagnesemia Hx of hypercalcemia History of alcohol use B12 deficiency Fatty liver, alcoholic HTN (hypertension) Hx of metabolic acidosis GERD (gastroesophageal reflux disease) Hx of deep venous thrombosis Hx of tuberculosis History of pulmonary embolism History of right breast cancer Osteoarthritis of left knee Surgical History Hx of exploratory laparotomy (06/14/24) History of left knee surgery History of arthroplasty of left knee Hx of adenoidectomy History of esophagogastroduodenoscopy (EGD) History of evacuation of hematoma Hx of colonoscopy History of cataract surgery History of cystoscopy History of knee replacement procedure of right knee History of lumpectomy of right breast History of tonsillectomy H/O right mastectomy S/P SASHA-BSO (total abdominal hysterectomy and bilateral salpingo-oophorectomy) History of appendectomy Family History Father No problems noted. Mother No problems noted. Other No family history of cancer Social History Household Members: Spouse Housing: House Are you a primary primary care sales representative to a significant other at home: No Do you presently have visiting nurse or other home services: No Alcohol intake: current Alcohol intake frequency: 0-2 drinks per day Alcohol type: other Comment: see RN note Patient Tobacco Use Status: Never used Tobacco e-Cigarette/Vaping Use: Never Used Second Hand Smoke Exposure: No Use of substances other than those prescribed or required for medical reasons: No Advance Directives: Yes Advance Directives on File: Yes Advance Directives Date on File: 12/24/21 service: No Current occupational status: retired Cognitive needs: No Hearing needs: No Vision needs: Yes Assessment & Plan Assessment & Plan (1) Urinary frequency: Code(s): R35.0 - Frequency of micturition Category: Medical (2) Urinary urgency: Code(s): R39.15 - Urgency of urination Category: Medical (3) Nocturia more than twice per night: Code(s): R35.1 - Nocturia Category: Medical (4) History of stroke: Code(s): Z86.73 - Personal history of transient ischemic attack (TIA), and cerebral infarction without residual deficits Category: Medical Plan Plan - Removal of test leads today as planned. - Consider permanent sacral neuromodulation if significant improvement is observed, involving sedation and subcutaneous pacemaker placement. - Start Gemtesa in the evening to manage nocturnal symptoms. - Schedule a follow-up phone call in 6 to 8 weeks to evaluate medication efficacy. Medications: New vibegron (Gemtesa) 75 mg PO DAILY 30 tabs 3RF Scribe Plan - Not visible on output: Patient was informed and verbally consented to the use of an ambient scribe for clinic note documentation during this visit. Coding Level of Care Code Global (09651) Diagnoses Urinary frequency R35.0 Urinary urgency R39.15 Nocturia more than twice per night R35.1 History of stroke Z86.73
== END 2025-04-29 13:39 | disposition home or self-care (01) ==
LOC: HO.HUSH 12:56
PROVIDERS: PCP Internal Medicine; Visit Provider Urology
DX: R35.0 Frequency of micturition (principal); R39.15 Urgency of urination; R35.1 Nocturia; Z86.73 Personal history of transient ischemic attack (TIA), and cerebral infarction without residual deficits
CPT/HCPCS: 99024

== ENCOUNTER → 2025-04-29 12:56 | Outpatient (BNVA) | payer MEDICARE, SELFPAY | PROVIDERS: PCP Internal Medicine; Visit Provider Urology | DX: R35.0 Frequency of micturition (principal); R39.15 Urgency of urination; R35.1 Nocturia; Z86.73 Personal history of transient ischemic attack (TIA), and cerebral infarction without residual deficits; Z79.2 Long term (current) use of antibiotics; Z79.899 Other long term (current) drug therapy | CPT/HCPCS: 99212 ==

== ENCOUNTER 2025-05-01 12:57 | Emergency (ER) | payer MEDICARE, SELFPAY ==
--- NOTE | 2025-05-01 | ECG_ITS ---
Test Reason : DIZZINESS Blood Pressure : */* mmHG Vent. Rate : 98 BPM Atrial Rate : 98 BPM P-R Int : 148 ms QRS Dur : 90 ms QT Int : 400 ms P-R-T Axes : 51 6 69 degrees QTcB Int : 510 ms Sinus rhythm with occasional Premature ventricular complexes Prolonged QT Abnormal ECG When compared with ECG of 12-Mar-2025 07:50, Premature ventricular complexes are now Present Referred By: Alejandra Delgado Electronically Signed By: James Rankin
--- NOTE | ~2025-05-01 | CT_ITS ---
EXAMINATION: CT HEAD WITHOUT CONTRAST CLINICAL INFORMATION: fall, head strike, pain COMPARISON: April 26, 2023. TECHNIQUE: Contiguous axial imaging was performed from the skull base to vertex without intravenous administration of contrast. This CT examination was performed using dose optimization techniques as appropriate, variously including the following: *Automated exposure control *Adjustment of mA and/or kV according to patient size (this includes techniques or standardized protocols for targeted exams where dose is matched to indication/reason for exam; i.e. extremities or head) *Use of iterative reconstruction technique DLP: 610.86 mGy-cm FINDINGS: No acute cortical disruption in the bony calvarium. Cortical disruption in the right zygomatic arcs and right malar bone. No acute intracranial hemorrhage, mass effect, midline shift, hydrocephalus or herniation. Carias-white matter differentiation is normal. Bilateral multifocal patchy and confluent deep periventricular white matter hypodensities involving centrum semiovale and macias radiata. Prominence of the extra-axial CSF spaces cerebral sulci and ventricles. Calcified plaques in the V4 segments of the vertebral arteries and the cavernous supracavernous segments both ICA. Sellar/suprasellar region demonstrated no gross masses. Craniocervical junction demonstrates normal position of the cerebellar tonsils. No air-fluid levels in the paranasal sinuses. Deformity of the lateral wall right maxillary sinus. Tympanic cavities and mastoid cells are aerated. CT/CT head/brain wo IV con IMPRESSION: Probable acute fracture malar bone of the right orbit. Old traumatic deformities, right maxillofacial bones. No acute fracture, bony calvarium. No acute intracranial hemorrhage. Small vessel occlusive disease. Global atrophy. Electronically signed by: Valentin Dubose MD 05/01/2025 02:25 PM EDT
--- NOTE | ~2025-05-01 | XR_ITS ---
EXAMINATION: XR SHOULDER 2 OR MORE VIEWS LEFT HISTORY: pain, injury COMPARISON: There are no prior studies available for comparison. FINDINGS: Three views of the left shoulder are submitted. Osseous mineralization is normal. There is no fracture or dislocation. The glenohumeral joint is maintained. There is narrowing of the AC joint. The soft tissues are unremarkable. XR/XR shoulder LT min 2V IMPRESSION: Narrowing of the AC joint. No evidence of fracture of the left shoulder. Electronically signed by: Praful Leon MD 05/01/2025 03:17 PM EDT
--- NOTE | ~2025-05-01 | XR_ITS ---
EXAMINATION: XR ELBOW, LEFT CLINICAL INFORMATION: pain, injury COMPARISON: None available. TECHNIQUE: AP, lateral, and oblique views of the left elbow. FINDINGS: No fracture, dislocation, or suspicious bone lesion. There is normal alignment. The radial head is intact. The joint spaces are preserved. No evidence of joint effusion. Epicondyles appear normal. No soft tissue abnormality. XR/XR elbow LT min 3V IMPRESSION: No acute findings left elbow. Electronically signed by: Ben Marquez MD 05/01/2025 03:17 PM EDT
--- NOTE | ~2025-05-01 | XR_ITS ---
EXAMINATION: XR CHEST CLINICAL INFORMATION: fall, pain. COMPARISON: 03/12/2025. TECHNIQUE: Frontal view of the chest was obtained. FINDINGS: The cardiac, hilar, and mediastinal contours are normal. The lungs are mildly hyperaerated bilaterally. There are subpleural interstitial changes involving both lungs, consistent with chronic interstitial lung disease. No abnormal consolidative opacity. No pneumothorax or effusion. No focal osseous or soft tissue abnormality. Healed right rib fracture noted. No acute fractures seen. XR/XR chest 1V IMPRESSION: 1. No acute pulmonary abnormalities. 2. Findings of chronic interstitial lung disease. Electronically signed by: Ben Marquez MD 05/01/2025 03:19 PM EDT
--- NOTE | ~2025-05-01 | CT_ITS ---
EXAMINATION: CT CERVICAL SPINE WITHOUT CONTRAST CLINICAL INFORMATION: Fall, head strike, pain. COMPARISON: None available. TECHNIQUE: Spiral CT imaging of the cervical spine performed in axial plane without contrast. Multiplanar reformatted images were constructed from the axial data set. This CT examination was performed using dose optimization techniques as appropriate, variously including the following: *Automated exposure control *Adjustment of mA and/or kV according to patient size (this includes techniques or standardized protocols for targeted exams where dose is matched to indication/reason for exam; i.e. extremities or head) *Use of iterative reconstruction technique FINDINGS: CORONAL ALIGNMENT: -Normal. SAGITTAL ALIGNMENT: -Normal lordosis. -No traumatic subluxation. -2 mm degenerative appearing retrolisthesis of C4 on C5, and C5 on C6. -Trace degenerative anterolisthesis of C6 on C7. C1-C2 AND CRANIOCERVICAL JUNCTION: -Intact and normally aligned. There are mild to moderate degenerative changes in the anterior atlantoaxial joint. VERTEBRAL BODIES AND FACETS: -No fracture, compression deformity, or suspicious bone lesion. No evidence of traumatic malalignment. -Normal facet alignment bilaterally. There are moderate multilevel degenerative facet changes bilaterally. DISCS: -Moderate disc degeneration present spanning C4-C7. CENTRAL CANAL: -No evidence of high-grade central canal narrowing or large disc herniation allowing for modality limitations. PREVERTEBRAL AND PARAVERTEBRAL SOFT TISSUES: -No prevertebral or paravertebral soft tissue edema or abnormal fluid collection. Moderate carotid bulb calcifications left greater than right. -Diminutive appearing thyroid gland. -Mildly patulous appearing superior esophagus. LUNG APICES: -There is parenchymal scarring in the left greater than right lung apex. CT/CT cervical spine wo IV con IMPRESSION: 1. No CT evidence of acute cervical spine fracture or injury. 2. Moderate degenerative spondylosis. Electronically signed by: Ben Marquez MD 05/01/2025 02:28 PM EDT
--- NOTE | ~2025-05-01 | XR_ITS ---
EXAMINATION: XR HIP 1 VIEW LEFT WITH PELVIS HISTORY: pain, injury COMPARISON: There are no prior studies available for comparison. FINDINGS: A single AP view of the pelvis and two views of the left hip are submitted. Osseous mineralization is normal. There is a comminuted intertrochanteric fracture of the left femur. There is narrowing of the joint space. The soft tissues are unremarkable. XR/XR hip LT w PEL1V IMPRESSION: Comminuted intertrochanteric fracture of the left femur. Electronically signed by: Praful Leon MD 05/01/2025 03:19 PM EDT
[2025-05-01 13:04] VITALS: BP 143/78; PULSE 88; O2SAT 97
--- NOTE | 2025-05-01 13:08 | ED_ITS ---
HPI - General Adult General Chief complaint: Fall Stated complaint: FALL, +LOC/HS/THINNERS, ? L HIP DISLOCATION Time Seen by Provider: 05/01/25 13:08 Source: patient, family (patient's ) and EMS Mode of arrival: EMS Limitations: no limitations History of Present Illness ED Provider: Alejandra Delgado PA-C HPI narrative: Patient is an 84 year old assigned female at with a history of stroke, alzheimer's dementia, PVD, GERD, HTN, anemia, and current anti-coagulation use presenting to the emergency department today with left hip, shoulder, and elbow pain after a fall. Patient states that she knew as soon as she got up that she was going to go down and fall. Patient denies any dizziness, lightheadedness, abdominal pain, nausea, vomiting, fever, chills, blurry vision, double vision, loss of vision, chest pain, difficulty breathing, shortness of breath, back pain, night sweats, pain with urination, increased urinary frequency, increased urinary urgency, blood in her urine or stool, syncope or a near syncopal episode, bowel incontinence, bladder incontinence, or any other complaints at this time. Relieving factors: none Exacerbating factors: none Associated symptoms: denies other symptoms Treatments prior to arrival: none Related Data Home Medications ?Medication ?Instructions ?Recorded ?Confirmed folic acid 800 mcg tablet 0.8 mg PO DAILY 06/10/2405/17 Previous Rx's ?Medication ?Instructions ?Recorded right mastectomy bra #2 ea 10/22/22 omeprazole 40 mg capsule,delayed 40 mg PO BID@0630,163 0 #60 caps 06/20/24 release folic acid 1 mg tablet 1 mg PO DAILY #90 tabs 08/20 quetiapine 25 mg tablet (Seroquel) 25 mg PO DAILY #90 tabs 10/01/24 metoprolol tartrate 25 mg tablet 12.5 mg (1/2 x 25 mg) PO BID 90 10/04/24 days #90 tabs magnesium oxide 400 mg PO BID #180 tabs 06/17 gabapentin 300 mg capsule 300 mg PO BEDTIME 90 days #9 0 caps 11/01/24 Stair lift #1 ea 01/22/25 rivaroxaban 20 mg tablet (Xarelto) 20 mg PO DAILY #90 tabs 04/25/25 nitrofurantoin 100 mg PO BID 10 days #20 ca ps 04/22/25 monohydrate/macrocrystals 100 mg capsule (Macrobid) vibegron 75 mg tablet (Gemtesa) 75 mg PO DAILY #30 tab s 04/29/25 Allergies Allergy/AdvReac Type Severity Reaction Status Date / Time sulfamethoxazole (From Allergy Severe Itching Verified 05/01/25 13:12 Bactrim) trimethoprim (From Bactrim) Allergy Severe Itching Verified 05/01/25 13:12 cortisone (Cortisone) Allergy Mild PT STATES, Verified 05/01/25 13:12 hx TB IT COULD AFFECT CRYSTALS IN LUNG prochlorperazine (From Allergy Mild LEG Verified 05/01/25 13:12 Compazine) NUMBNESS hydrochlorothiazide Allergy Unknown RASH Verified 05/01/25 13:12 levofloxacin (Levaquin) Allergy Unknown Wakefulness, Verified 05/01/25 13:12 nausea, shaking Sulfa (Sulfonamide AdvReac Intermediate rash Verified 05/01/25 13:12 Antibiotics) codeine AdvReac Unknown NAUSEA/VOMI Verified 05/01/25 13:12 TING chocolate Allergy Unknown severe Uncoded 03/12/25 07:43 headaches/vomiting Review of Systems 2 Constitutional: Constitutional: Reports no additional constitutional complaints, Denies chills, Denies fever(s) and Denies night sweats Eyes: Eyes: Reports no additional eye complaints, Denies blurry vision, Denies change in vision, Denies diplopia, Denies eye discharge, Denies loss of vision and Denies eye pain ENT: Denies dizziness Cardiovascular: Cardiovascular: Reports no additional cardiovascular complaints, Denies chest pain, Denies lightheadedness, Denies Loss of Consciousness and Denies dyspnea Respiratory: Respiratory: Reports no additional respiratory complaints and Denies dyspnea Gastrointestinal: Gastrointestinal: Reports no additional gastrointestinal complaints, Denies abdominal pain, Denies melena, Denies hematochezia, Denies change in bowel habits and Denies change in stool character Genitourinary: Genitourinary: Denies hematuria, Denies urinary frequency, Denies dysuria, Denies urinary incontinence, Denies urinary hesitancy and Denies urinary urgency Musculoskeletal: Musculoskeletal: Reports no additional musculoskeletal complaints, Denies numbness and Denies tingling Comments: left shoulder pain left elbow pain left hip pain Neurologic: Denies dizziness, Denies loss of vision, Denies numbness and Denies tingling Psychiatric: Psychiatric: Reports no additional psychiatric complaints Endocrine: Endocrine: Reports no additional endocrine complaints Hematologic/Lymphatic: Hematologic/Lymphatic: Reports no additional hematologic/lymphatic complaints Allergic/Immunologic: Allergic/Immunologic: Reports no additional allergic/immunologic complaints [facility] Past Medical History Attestation statement: The following information was validated with the patient. Source: old records reviewed and nursing notes reviewed Medical History Diarrhea Pressure ulcer Chronic bacteriuria Urinary incontinence Bilateral hip pain Venous insufficiency of both lower extremities Bilateral knee pain Arthritis of lumbosacral spine Chronic diarrhea TIA (transient ischemic attack) UTI (urinary tract infection) Hallucination Confusion Supratherapeutic INR Weakness Cognitive change Pernicious anemia Osteoporosis Peripheral neuropathy Impaired fasting glucose Irritable bowel syndrome Breast cancer Thrombocytopenia Hypomagnesemia Hx of hypercalcemia History of alcohol use B12 deficiency Fatty liver, alcoholic HTN (hypertension) Hx of metabolic acidosis GERD (gastroesophageal reflux disease) Hx of deep venous thrombosis Hx of tuberculosis History of pulmonary embolism History of right breast cancer Osteoarthritis of left knee Surgical History Hx of exploratory laparotomy (06/14/24) History of left knee surgery History of arthroplasty of left knee Hx of adenoidectomy History of esophagogastroduodenoscopy (EGD) History of evacuation of hematoma Hx of colonoscopy History of cataract surgery History of cystoscopy History of knee replacement procedure of right knee History of lumpectomy of right breast History of tonsillectomy H/O right mastectomy S/P SASHA-BSO (total abdominal hysterectomy and bilateral salpingo-oophorectomy) History of appendectomy Family History Family History Father No problems noted. Mother No problems noted. Other No family history of cancer Social History Social History Household Members: Spouse Housing: House Are you a primary senior resident care director to a significant other at home: No Do you presently have visiting nurse or other home services: No Alcohol intake: current Alcohol intake frequency: 0-2 drinks per day Alcohol type: other Comment: see RN note Patient Tobacco Use Status: Never used Tobacco e-Cigarette/Vaping Use: Never Used Second Hand Smoke Exposure: No Use of substances other than those prescribed or required for medical reasons: No Advance Directives: Yes Advance Directives on File: Yes Advance Directives Date on File: 12/24/21 service: No Current occupational status: retired Cognitive needs: No Hearing needs: No Vision needs: Yes Physical Exam ED Vital Signs: Vital Signs - 24 hr 05/01/25 13:10 05/01/25 13:51 05/01/25 16:25 Temperature 97.9 F Pulse Rate 92 Respiratory Rate 14 14 14 Blood Pressure 139/73 Pulse Oximetry 98 Oxygen Delivery Method Room Air 05/01/25 16:51 Temperature 97.8 F Pulse Rate 103 H Respiratory Rate 12 Blood Pressure 120/56 L Pulse Oximetry 100 Oxygen Delivery Method Room Air BMI result Body Mass Index 20.2 Const General: cooperative, no acute distress, alert and awake Nutritional Appearance: well nourished Orientation/consciousness: patient oriented x3 HENMT Head: Yes normal to inspection and Yes atraumatic Ears: hearing grossly normal bilaterally and external ears normal General nose exam: Normal external nose present, no nasal discharge noted and no epistaxis Face and sinus: Yes normal facial exam, No abrasion and No laceration Mouth: Normal oral and palatal mucosa present, no drooling and no muffled voice Eyes General: appearance normal, both eyes and all related structures Periorbital: periorbital findings normal Eyelids: Yes eyelids normal Conjunctivae: conjunctivae normal Pupils: Equal, round and reactive pupils present EOM: EOMs intact bilaterally Neck Neck: Yes normal visual inspection, Yes full ROM and Yes no lymphadenopathy Resp Effort & Inspection: normal respiratory effort and able to speak in complete sentences Neuro General: patient oriented x3, moves all extremities and CN's II-XI intact bilaterally Cranial nerves: Yes Equal, round and reactive pupils present Cognition (Neuro): normal cognition Extrem Other: left lower extremity rotated externally and shortened General: Yes capillary refill normal Psych Appearance: grossly normal Mental Status: mental status grossly normal Affect: normal affect Attitude: cooperative Thought process: Normal thought process present Thought content: Normal thought content present Insight: Good insight present (Psych) Medications Administered Discontinued Medications Generic Name Dose Route Start Last Admin Trade Name Freq PRN Reason Stop Dose Admin Morphine Sulfate 4 mg 05/01/25 13:15 05/01/25 13:51 Morphine Sulfate 4 Mg/Ml Cartridge IVPUSH 05/01/25 13:16 4 mg ONCE ONE Administration Protocol Morphine Sulfate 4 mg 05/01/25 15:50 05/01/25 16:25 Morphine Sulfate 4 Mg/Ml Cartridge IVPUSH 05/01/25 15:51 4 mg ONCE ONE Administration Protocol Ondansetron HCl 4 mg 05/01/25 13:15 05/01/25 13:51 Ondansetron Hcl 4 Mg/2 Ml Vial IVPUSH 05/01/25 13:16 4 mg ONCE ONE Administration Medical Decision Making Medical Decision Making MDM Narrative: Patient is an 84 year old assigned female at with a history of stroke, alzheimer's dementia, PVD, GERD, HTN, anemia, and current anti-coagulation use presenting to the emergency department today with left hip, shoulder, and elbow pain after a fall. Patient's physical exam was as noted in the physical exam portion of this note. Patient's blood work was unremarkable. Patient's EKG was unremarkable. Patient's chest, left elbow, and left shoulder x-rays showed no acute process. Patient's CT c-spine showed no acute process. Patient's CT head showed a probable acute malar bone of the right orbit fracture. Patient's left hip x-ray showed a comminuted intertrochanteric fracture of the left femur. I spoke to our orthopedic team and was informed that due to the patient being on Xarelto, by the time she is ready for the necessary left hip surgery (48 hours) there would not be a surgeon in the facility to perform it and therefore, the patient needs to be transferred. I spoke with [facility] Dr. Denise the trauma surgeon, who accepted the patient to their ED as a trauma consult. I explained my physical exam findings as well as all test results to the patient and the patient's . I answered all questions asked by the patient and the patient's . Patient and the patient's verbalized agreement and understanding with this treatment plan and discharge. Differential Diagnosis Differential Diagnoses: The differential diagnosis associated with the presentation includes Left hip fracture Fall Admission/Observation Consideration of admission/observation: Escalation of care including admission/observation considered Patient transferred to [facility] ED as noted in the MDM Rationale portion of this note. Consult Healthcare Provider Management of the patient was discussed with: [employer] (spoke with the orthopedic team and the [facility] Trauma surgeon as noted in the MDM Rationale portion of this note. ) Lab Data [facility] Lab Attestation statement: I reviewed the patient's lab results. My interpretation of these results are in the MDM Rationale portion of this note. 05/01/25 13:31 07 13:31 Labs: Lab Results 05/01/25 05/01/25 Range/Units 13:31 13:31 WBC 5.2 (4.8-10.8) X10*3/uL RBC 3.43 L (4.20-5.50) X10*6/uL Hgb 10.6 L (12.0-16.0) g/dl Hct 33.3 L (37.0-47.0) % MCV 97.1 (80.0-98.0) fL MCH 30.9 (27.0-33.0) pg MCHC 31.8 (31.0-35.0) g/dl RDW 15.1 (11.0-16.0) % Plt Count 174 (160-400) X10*3/uL MPV 10.1 (9.4-12.3) fL Immature Gran % (Auto) 0.4 (0.0-0.4) % Neut % (Auto) 71.1 (45-73) % Lymph % (Auto) 10.6 L (20-40) % Bullock % (Auto) 15.8 H (2-11) % Eos % (Auto) 1.5 (0-4) % Baso % (Auto) 0.6 (0-2) % Lymph # (Auto) 0.6 L (1.2-4.9) X10*3/uL Bullock # (Auto) 0.8 (0.1-1.2) X10*3/uL Eos # (Auto) 0.1 (0.0-0.4) X10*3/uL Baso # (Auto) 0.0 (0.0-0.2) X10*3/uL Abs Immat Gran (auto) 0.02 (0.00-0.03) X10*3/uL Absolute Neuts (auto) 3.7 (2.0-8.3) x10*3/uL Absolute Nucleated RBC 0.000 (0.0-0.012) X10*3/uL Nucleated RBC % (auto) 0.0 (0.0-0.2) /100WBC PT 10.4 L D (10.9-12.4) SEC INR 0.9 (0.9-1.1) Sodium 136 (135-145) mmol/L Potassium 3.5 (3.3-5.1) mmol/L Chloride 103 (96-108) mmol/L Carbon Dioxide 23 (22-29) mmol/L Anion Gap 14 (12-20) BUN 22 H (9-16) mg/dL Creatinine 1.21 (0.5-1.4) mg/dL Estim Creat Clear Calc 30.1 Estimated GFR 43 Random Glucose 105 (60-115) mg/dL Calcium 8.3 L (8.4-10.2) mg/dL Magnesium 1.8 (1.6-2.6) mg/dL Total Bilirubin 0.6 (0.0-1.0) mg/dL AST 20 (5-31) U/L ALT 8 (0-31) U/L Alkaline Phosphatase 112 (39-117) U/L Total Protein 7.4 (6.5-8.0) g/dL Albumin 3.6 (3.5-5.0) g/dL Blood Type O Positive Antibody Screen POSITIVE Antibody Identification Inconclusive Anti-K Crossmatch (AHG) See Detail Blood Bank Comment Specimen Independent Interpretation I performed an independent interpretation of an: EKG, Plain X-Ray and CT Scan Interpretation: My interpretation is in agreement with the radiologist's impression of these imaging studies. L Report Number: [id number]: Total DLP = 886.00 mGy-cm EXAMINATION: CT CERVICAL SPINE WITHOUT CONTRAST CLINICAL INFORMATION: Fall, head strike, pain. COMPARISON: None available. TECHNIQUE: Spiral CT imaging of the cervical spine performed in axial plane without contrast. Multiplanar reformatted images were constructed from the axial data set. This CT examination was performed using dose optimization techniques as appropriate, variously including the following: *Automated exposure control *Adjustment of mA and/or kV according to patient size (this includes techniques or standardized protocols for targeted exams where dose is matched to indication/reason for exam; i.e. extremities or head) *Use of iterative reconstruction technique FINDINGS: CORONAL ALIGNMENT: -Normal. SAGITTAL ALIGNMENT: -Normal lordosis. -No traumatic subluxation. -2 mm degenerative appearing retrolisthesis of C4 on C5, and C5 on C6. -Trace degenerative anterolisthesis of C6 on C7. C1-C2 AND CRANIOCERVICAL JUNCTION: -Intact and normally aligned. There are mild to moderate degenerative changes in the anterior atlantoaxial joint. VERTEBRAL BODIES AND FACETS: -No fracture, compression deformity, or suspicious bone lesion. No evidence of traumatic malalignment. -Normal facet alignment bilaterally. There are moderate multilevel degenerative facet changes bilaterally. DISCS: -Moderate disc degeneration present spanning C4-C7. CENTRAL CANAL: -No evidence of high-grade central canal narrowing or large disc herniation allowing for modality limitations. PREVERTEBRAL AND PARAVERTEBRAL SOFT TISSUES: -No prevertebral or paravertebral soft tissue edema or abnormal fluid collection. Moderate carotid bulb calcifications left greater than right. -Diminutive appearing thyroid gland. -Mildly patulous appearing superior esophagus. LUNG APICES: -There is parenchymal scarring in the left greater than right lung apex. CT/CT cervical spine wo IV con IMPRESSION: 1. No CT evidence of acute cervical spine fracture or injury. 2. Moderate degenerative spondylosis. Electronically signed by: Ben Marquez MD 05/01/2025 02:28 PM EDT RP Dictated By: Ben Marquez MD Signed By: Electronically signed by Ben Marquez MD 05/01/25 1428 Report Number: [id number]: Total DLP = 886.00 mGy-cm EXAMINATION: CT HEAD WITHOUT CONTRAST CLINICAL INFORMATION: fall, head strike, pain COMPARISON: April 26, 2023. TECHNIQUE: Contiguous axial imaging was performed from the skull base to vertex without intravenous administration of contrast. This CT examination was performed using dose optimization techniques as appropriate, variously including the following: *Automated exposure control *Adjustment of mA and/or kV according to patient size (this includes techniques or standardized protocols for targeted exams where dose is matched to indication/reason for exam; i.e. extremities or head) *Use of iterative reconstruction technique DLP: 610.86 mGy-cm FINDINGS: No acute cortical disruption in the bony calvarium. Cortical disruption in the right zygomatic arcs and right malar bone. No acute intracranial hemorrhage, mass effect, midline shift, hydrocephalus or herniation. Carias-white matter differentiation is normal. Bilateral multifocal patchy and confluent deep periventricular white matter hypodensities involving centrum semiovale and macias radiata. Prominence of the extra-axial CSF spaces cerebral sulci and ventricles. Calcified plaques in the V4 segments of the vertebral arteries and the cavernous supracavernous segments both ICA. Sellar/suprasellar region demonstrated no gross masses. Craniocervical junction demonstrates normal position of the cerebellar tonsils. No air-fluid levels in the paranasal sinuses. Deformity of the lateral wall right maxillary sinus. Tympanic cavities and mastoid cells are aerated. CT/CT head/brain wo IV con IMPRESSION: Probable acute fracture malar bone of the right orbit. Old traumatic deformities, right maxillofacial bones. No acute fracture, bony calvarium. No acute intracranial hemorrhage. Small vessel occlusive disease. Global atrophy. Electronically signed by: Valentin Dubose MD 05/01/2025 02:25 PM EDT RP Dictated By: Valentin Landeros MD Signed By: Electronically signed by Valentin Egan MD 05/01/25 1425 EXAMINATION: XR HIP 1 VIEW LEFT WITH PELVIS HISTORY: pain, injury COMPARISON: There are no prior studies available for comparison. FINDINGS: A single AP view of the pelvis and two views of the left hip are submitted. Osseous mineralization is normal. There is a comminuted intertrochanteric fracture of the left femur. There is narrowing of the joint space. The soft tissues are unremarkable. XR/XR hip LT w PEL1V IMPRESSION: Comminuted intertrochanteric fracture of the left femur. Electronically signed by: Praful Leon MD 05/01/2025 03:19 PM EDT Dictated By: Praful Leon MD Signed By: Electronically signed by Praful Leon MD 05/01/25 1519 EXAMINATION: XR SHOULDER 2 OR MORE VIEWS LEFT HISTORY: pain, injury COMPARISON: There are no prior studies available for comparison. FINDINGS: Three views of the left shoulder are submitted. Osseous mineralization is normal. There is no fracture or dislocation. The glenohumeral joint is maintained. There is narrowing of the AC joint. The soft tissues are unremarkable XR/XR shoulder LT min 2V IMPRESSION: Narrowing of the AC joint. No evidence of fracture of the left shoulder. Electronically signed by: Praful Leon MD 05/01/2025 03:17 PM EDT Dictated By: Praful Leon MD Signed By: Electronically signed by Praful Leon MD 05/01/25 1517 EXAMINATION: XR ELBOW, LEFT CLINICAL INFORMATION: pain, injury COMPARISON: None available. TECHNIQUE: AP, lateral, and oblique views of the left elbow. FINDINGS: No fracture, dislocation, or suspicious bone lesion. There is normal alignment. The radial head is intact. The joint spaces are preserved. No evidence of joint effusion. Epicondyles appear normal. No soft tissue abnormality. XR/XR elbow LT min 3V IMPRESSION: No acute findings left elbow. Electronically signed by: Ben Marquez MD 05/01/2025 03:17 PM EDT RP Dictated By: Ben Marquez MD Signed By: Electronically signed by Ben Marquez MD 05/01/25 1517 EXAMINATION: XR CHEST CLINICAL INFORMATION: fall, pain. COMPARISON: 03/12/2025. TECHNIQUE: Frontal view of the chest was obtained. FINDINGS: The cardiac, hilar, and mediastinal contours are normal. The lungs are mildly hyperaerated bilaterally. There are subpleural interstitial changes involving both lungs, consistent with chronic interstitial lung disease. No abnormal consolidative opacity. No pneumothorax or effusion. No focal osseous or soft tissue abnormality. Healed right rib fracture noted. No acute fractures seen. XR/XR chest 1V IMPRESSION: 1. No acute pulmonary abnormalities. 2. Findings of chronic interstitial lung disease. Electronically signed by: Ben Marquez MD 05/01/2025 03:19 PM EDT RP Dictated By: Ben Marquez MD Signed By: Electronically signed by Ben Marquez MD 05/01/25 1519 I independently interpreted this EKG and am in agreement with the below findings: Vent. Rate: 98 BPM Atrial Rate: 98 BPM P-R Int: 148 ms QRS Dur: 90 ms QT Int: 400 ms P-R-T Axes: 51 6 69 degrees QTcB Int: 510 ms Sinus rhythm with occasional Premature ventricular complexes When compared with ECG of 12-Mar-2025 07:50, Premature ventricular complexes are now Present DD/ 1333 Radiology Impression Discussion of test interpretation with radiology: I have reviewed the radiologist's reading. Independent Historian Clinical information obtained from an independent historian. History obtained from or confirmed by: Spouse (Patient's provided additional history and confirmed the history provided by the patient.) and EMS (EMS provided additional history and confirmed the history provided by the patient. ) Critical Care Time Critical Care Time Critical Care Time: Yes Total Critical Care Time: 49 Attestation: I spent 49 minutes of Critical Care Time with this patient. This does not include time spent on separately reported billable procedures. Discharge Plan Discharge Clinical Impression: Femur fracture Patient Disposition: [facility] Transfer Details: Transferred to [facility] ED - accepted by Dr. Denise Prescriptions: No Action quetiapine [Seroquel] 25 mg tablet 25 mg PO DAILY Qty: 90 2RF metoprolol tartrate 25 mg tablet 12.5 mg PO BID 90 Days Qty: 90 3RF magnesium oxide 400 mg magnesium tablet 400 mg PO BID Qty: 180 2RF gabapentin 300 mg capsule 300 mg PO BEDTIME 90 Days Qty: 90 3RF Xarelto 20 mg tablet 20 mg PO DAILY Qty: 90 0RF Rx Instructions: must administer with evening meal nitrofurantoin monohyd/m-cryst [Macrobid] 100 mg capsule 100 mg PO BID 10 Days Qty: 20 0RF Rx Instructions: must administer with a meal/food folic acid 1 mg Tablet 1 mg PO DAILY Qty: 90 3RF folic acid 800 mcg Tablet 0.8 mg PO DAILY omeprazole 40 mg Capsule,Delayed Release(Dr/Ec) 40 mg PO BID@0630,1630 Qty: 60 0RF (DME) right mastectomy bra See Rx Instructions .Route .MEDSUPPLY Qty: 2 0RF Rx Instructions: As directed (DME) Stair lift See Rx Instructions .Route .MEDSUPPLY Qty: 1 0RF Rx Instructions: For customer # [id number] Gemtesa 75 mg tablet 75 mg PO DAILY Qty: 30 3RF Print Language: Croatian
[2025-05-01 13:10] VITALS: BP 139/73; PULSE 92; RESP 14; TEMP 36.6; O2SAT 98; BMI 20.2
[2025-05-01 13:41] LABS: MANUAL DIFF FLAG NO
[2025-05-01 13:44] LABS: Hematocrit 33.3 % (37.0-47.0); Hemoglobin 10.6 g/dl (12.0-16.0); Imm Gran Abs Auto 0.02 X10*3/uL (0.00-0.03); Imm Gran Pct Auto 0.4 % (0.0-0.4); Lymphocytes Absolute Auto 0.6 X10*3/uL (1.2-4.9); Mean Corpuscular HGB Conc 31.8 g/dl (31.0-35.0); Mean Corpuscular Hemoglobin 30.9 pg (27.0-33.0); Mean Corpuscular Volume 97.1 fL (80.0-98.0); NRBC Abs Auto 0.000 X10*3/uL (0.0-0.012); NRBC Pct Auto 0.0 /100WBC (0.0-0.2); Platelet Count 174 X10*3/uL (160-400); Red Blood Count 3.43 X10*6/uL (4.20-5.50); White Blood Count 5.2 X10*3/uL (4.8-10.8)
[2025-05-01 13:49] LABS: INTERNATIONAL NORM RATIO 0.9 (0.9-1.1); Prothrombin Time 10.4 SEC (10.9-12.4)
[2025-05-01 13:51] VITALS: RESP 14
[2025-05-01 14:01] LABS: Alanine Aminotransferase 8 U/L (0-31); Albumin Level 3.6 g/dL (3.5-5.0); Alkaline Phosphatase 112 U/L (39-117); Anion Gap 14 (12-20); Aspartate Amino Transferase 20 U/L (5-31); Blood Urea Nitrogen 22 mg/dL (9-16); Calcium 8.3 mg/dL (8.4-10.2); Carbon Dioxide 23 mmol/L (22-29); Chloride 103 mmol/L (96-108); Creatinine Clr Calc Pharmacy 30.1; Estimated Glomerular Filt Rate 43; Magnesium 1.8 mg/dL (1.6-2.6); Potassium 3.5 mmol/L (3.3-5.1); Sodium 136 mmol/L (135-145); Total Protein 7.4 g/dL (6.5-8.0)
--- NOTE | 2025-05-01 14:28 | PC.NURSE ---
pt BIBA from home s/p fall d/t syncope. woke up and got out of bed to walk to lunch w sudden onset dizziness. +ve head strike, c-collar applied by EMS. + thinners - on Xarelto. pt reporting bilateral shoulder, L elbow, L hip pain, + hip deformity - L leg shortened and rotated. 50mcg fentanyl given R deltoid by EMS for 8/10 pain. pt denies relief from medication, reporting 10/10 pain on arrival to ED. pt denies any neck/head/back pain. pt declined to have clothes cut off - pants and underwear removed for XRs. pt reports that she is a difficult stick, 1 failed IV attempt from EMS. plan for u/s line. air sampling and monitoring applied - NSR on monitor, vss. u/s IV placed R upper arm, RN and tech notified by pt of R sided mastectomy after IV line established. pt reports that she has had blood drawn on the R side previously. provider notified. pt to CT, XRs pending. pt medicated per MAR for pain. no new orders at this time.
[2025-05-01 16:25] VITALS: RESP 14
--- NOTE | 2025-05-01 16:28 | PC.NURSE ---
New IV start to left wrist 22g, right u/s guided to right ac removed Pt medicated as charted for 08/02 left hip pain
[2025-05-01 16:51] VITALS: BP 120/56; PULSE 103; RESP 12; TEMP 36.6; O2SAT 100
[2025-05-01 17:28] VITALS: BP 129/56; PULSE 106; RESP 18; O2SAT 98
--- NOTE | 2025-05-01 18:31 | PC.NURSE ---
Attempted to call [facility] ED for RN to RN report x3, no answer.
== END 2025-05-01 19:01 | disposition short-term general hospital (02) ==
PROVIDERS: Physician Assistant Medical; Emergency Provider Emergency Medicine; PCP Internal Medicine
DX: S72.92XA Unspecified fracture of left femur, initial encounter for closed fracture (principal); R51.9 Headache, unspecified; R07.89 Other chest pain; G30.9 Alzheimer's disease, unspecified; F02.80 Dementia in other diseases classified elsewhere, unspecified severity, without behavioral disturbance, psychotic disturbance, mood disturbance, and anxiety; M79.602 Pain in left arm; M54.2 Cervicalgia; I10 Essential (primary) hypertension; R42 Dizziness and giddiness; R94.31 Abnormal electrocardiogram [ECG] [EKG]; Z79.01 Long term (current) use of anticoagulants; Z79.899 Other long term (current) drug therapy; Z86.73 Personal history of transient ischemic attack (TIA), and cerebral infarction without residual deficits
CPT/HCPCS: 36415; 70450; 71045; 72125; 73030; 73080; 73502; 80053; 83735; 85025; 85610; 86850; 86870; 86885; 86900; 86901; 86902; 86920; 86922; 93005; 96365; 96375; 96376; 99285; 99291; J2270; J2405; J3475

== ENCOUNTER → 2025-05-01 13:08 | Outpatient (BNV) | payer MEDICARE, SELFPAY | PROVIDERS: PCP Internal Medicine; Visit Provider Radiology Diagnostic Radiology | DX: M47.812 Spondylosis without myelopathy or radiculopathy, cervical region (principal); I67.89 Other cerebrovascular disease; S72.142A Displaced intertrochanteric fracture of left femur, initial encounter for closed fracture; M19.012 Primary osteoarthritis, left shoulder; J84.9 Interstitial pulmonary disease, unspecified; M25.522 Pain in left elbow; S59.902A Unspecified injury of left elbow, initial encounter | CPT/HCPCS: 71045; 72125; 73080 ==

== ENCOUNTER → 2025-05-01 13:33 | Outpatient (BNV) | payer MEDICARE, SELFPAY | PROVIDERS: Emergency Provider Emergency Medicine; PCP Internal Medicine; Visit Provider Internal Medicine Cardiovascular Disease | DX: I49.3 Ventricular premature depolarization (principal) | CPT/HCPCS: 93010 ==

== ENCOUNTER 2025-06-14 08:10 | Outpatient (REF) | payer MEDICARE, SELFPAY ==
--- OUTSIDE RECORDS SUMMARY | 2024-03-06 06:00 | XMS_ITS ---
Author Organization [facility] Address [address] [place] [id number] Care Team Providers Care Front Office Director Name Role Phone Vinicius Burnett Primary Care Provider Unavailabl e Black, Tia Unavailable [phone] Rose Dan [phone] Encounters Encounter Location Date Provider Diagnosis [address] [address] 03/06/2024 Rose Dan Plan Of Treatment No Information Progress Notes * Cande FOX ADOB:1939 (84 yo F)Acc No.[id number]:03/06/2024 Progress Note Patient: Cande ARORA Provider: Oscar Dan DPM :1940 A ge:83 Y S ex:Female Date:03/06/2024 Address:[address] [place], [place] [id number] Pcp:Vinicius Burnett Subjective: * Chief Complaints: * * Medical History: Objective: * Vitals: Assessment: Plan: * Treatment: * Images: * The named appointment provid er may or may not be the originator of this progress note, and it is not deemed complete until electronically signed by the appointment provider. Sign off status: Pending * Provider: Oscar Dan DPM Date: 0 03/06/2024 Generated for Mariiai ng/Fatriceg/eTransmitting on: 0 06/14/2025 08:17 AM EDT
--- OUTSIDE RECORDS SUMMARY | 2025-06-14 08:17 | XMS_ITS | Encounter Summary ---
Author Organization [facility] Address [address] [place] [address] Phone Care Team Providers Care Project Management Instructor Name Role Phone Ric Schafer MD Primary Care Provider [phone] Encounter Details Date Type Department Care Team (Late st Contact Info) Description 12/29/2020 Transcribe Orders [facility] Specimen Processing [address] [place] [address] Kenneth rKishna MD 38 [facility], [address], [address] [place] [address] [email or web address] Routine general medical examination at a health care facility (Primary Dx) Social History Tobacco Use Types Packs/Day Years Used Date Smoking Tobacco: Unknown Comments Unknown Sex and Gender Information Value Date Recorded Sex Assigned at Female 11/28/2020 2:46 PM EST Legal Sex Female 6:29 AM EST Gender Identity Female 11/28/2020 2:46 PM EST Sexual Orientation Straight 11/28/2020 2: 46 PM EST documented as of this encounter Plan of Treatment Not on file documented as of this encounter Results * Magnesium (12/29/2020 5:49 AM EST) MAGNESIUM 2.1 1.6 - 2.6 mg/dL [facility] Blood 12/29/2020 5:49 AM EST 12/29/2020 9:17 AM EST us Kenneth Krishna MD LAB BLOOD ORDERABLES Final Resul t [facility] [address] [place] [address] documented in this encounter Visit Diagnoses Diagnosis Routine general medical examination at a health care facility- Primary documented in this encounter Care Teams Project Management Instructor Relationship Specialty Start Date End Date Ric Schafer MD [email or web address] PCP - General Hospitalist 11/13/20 documented as of this encounter Additional Source Comments The information contained in this document represents components of the legal health record. It is not the complete legal health record.[facility]
[2025-06-14 10:30] LABS: Thyroid Stimulating Hormone 2.09 uIU/mL (0.32-4.0)
[2025-06-14 11:02] LABS: Folate 14.8 ng/mL (> or = 4.0); Vitamin B12 710 pg/mL (200-900)
== END 2025-06-14 08:11 | disposition home or self-care (01) ==
LOC: HO.MMNH2L 08:10
DX: G30.9 Alzheimer's disease, unspecified (principal)
CPT/HCPCS: 36415; 82607; 82746; 84443

== ENCOUNTER 2025-07-08 17:27 | Emergency (ER) | payer MEDICARE, SELFPAY ==
--- NOTE | ~2025-07-08 | US_ITS ---
CLINICAL HISTORY: ruq pain, choledoco rule out US abdomen limited Comparison: CT/SR - CT ABDOMEN PELVIS WITH IV CONTRAST - 06/10/24 14:27 EDT Findings: The gallbladder is nondistended and demonstrates normal wall thickness, measuring 2 mm. There is at least 1 echogenic gallstone. No pericholecystic fluid. There is a sonographic Clancy's sign. The common bile duct measures 3 mm without a stone seen. IMPRESSION: Cholelithiasis without sonographic evidence of cholecystitis. This document has been electronically signed by: Lorenzo Tafoya MD on 07/08/2025 22:25:16
--- NOTE | ~2025-07-08 | CT_ITS ---
CLINICAL HISTORY: abdominal pain CT abdomen and pelvis with contrast Comparison: US - US ABDOMEN LIMITED - 07/08/25 20:[address]/SR - CT ABDOMEN PELVIS WITH IV CONTRAST - 06/10/24 14:27 EDT Findings: CT abdomen: Emphysematous changes are seen within the lung bases in a centrilobular distribution. Additionally, there are areas of thickening interlobular septa as well as linear areas of streaky density suggestive of scarring or atelectasis. No large area of consolidation. No pleural effusion or pneumothorax. Bones are osteopenic. No acute fracture. No focal hepatic lesions are identified. Main portal vein is patent. Cholelithiasis is again seen. There is continued hyperenhancement of the gallbladder wall with gallbladder wall thickening measuring up to 5 mm. Pericholecystic fluid measuring up to 1 cm in thickness. Common hepatic duct and common bile duct are dilated up to 11 mm. As seen on the patient's prior study, filling defects within the common bile duct is indicative of choledocholithiasis measuring up to 5 mm in size. No pancreatic ductal dilatation is identified. No peripancreatic inflammatory stranding. Spleen, adrenal glands, and kidneys are unremarkable for acute findings. There is atrophy of the right kidney with multifocal areas of cortical scarring of the right kidney. Continued wall thickening of the proximal to mid gastric body with wall thickening of the distal gastric antrum extending into the pylorus as seen previously. No dilated small bowel. No free air. CT pelvis: Numerous surgical clips within the right hemipelvis. Urinary bladder is mildly distended. No bladder calculi. Moderate stool throughout the colon. Scattered diverticuli throughout the colon. No focal areas of diverticulitis. Appendix is not confidently identified. Patient has undergone interval open reduction internal fixation of a moderately impacted left intertrochanteric fracture. Correlation with the timing of the patient's surgeries is suggested as is appears relatively recent. Moderate degenerative change of both hip joints. Moderate convex left thoracolumbar curvature. IMPRESSION: 1. Findings highly concerning for cholecystitis as discussed above. Surgical consultation suggested. 2. Choledocholithiasis with associated dilation of the common bile duct. Therefore, ERCP should be considered prior to potential cholecystectomy. 3. Continued findings suggestive of gastritis. Endoscopy or upper GI could further evaluate. 4. Likely recent surgical fixation of a left intertrochanteric fracture. This document has been electronically signed by: Olaf Valdez MD on 07/08/2025 23:50:30
[2025-07-08 17:35] VITALS: BP 166/73; BP 170/90; PULSE 96; PULSE 98; RESP 15; TEMP 36.6; O2SAT 100; O2SAT 97; BMI 18.4
[2025-07-08 17:45] VITALS: BP 166/73; PULSE 96; RESP 15; TEMP 36.6; O2SAT 97
--- NOTE | 2025-07-08 17:47 | PC.NURSE ---
Addendum entered by Nadia Eid RN 07/08/25 17:48: Pt has some pitting edema in lower feet and ankles. Worse on the left. Original Note: Has had no pain meds. She is uncertain about her allergy list. Has visiting nurse that comes to her house. Nurse was in her home today, everythin was fine at that time.
[2025-07-08 18:48] VITALS: BP 152/69; PULSE 102; RESP 15; TEMP 36.4; O2SAT 98
[2025-07-08 18:59] LABS: MANUAL DIFF FLAG NO
[2025-07-08 19:00] LABS: Hematocrit 35.9 % (37.0-47.0); Hemoglobin 11.7 g/dl (12.0-16.0); Imm Gran Abs Auto 0.02 X10*3/uL (0.00-0.03); Imm Gran Pct Auto 0.2 % (0.0-0.4); Lymphocytes Absolute Auto 0.6 X10*3/uL (1.2-4.9); Mean Corpuscular HGB Conc 32.6 g/dl (31.0-35.0); Mean Corpuscular Hemoglobin 32.3 pg (27.0-33.0); Mean Corpuscular Volume 99.2 fL (80.0-98.0); NRBC Abs Auto 0.000 X10*3/uL (0.0-0.012); NRBC Pct Auto 0.0 /100WBC (0.0-0.2); Platelet Count 139 X10*3/uL (160-400); Red Blood Count 3.62 X10*6/uL (4.20-5.50); White Blood Count 9.3 X10*3/uL (4.8-10.8)
[2025-07-08 19:06] LABS: INTERNATIONAL NORM RATIO 1.1 (0.9-1.1); Prothrombin Time 12.4 SEC (10.9-12.4)
[2025-07-08 19:09] LABS: Partial Thromboplastin Time 28.1 SEC (26.7-34.1)
[2025-07-08 19:19] LABS: Alanine Aminotransferase 21 U/L (0-31); Albumin Level 3.1 g/dL (3.5-5.0); Alkaline Phosphatase 279 U/L (39-117); Anion Gap 14 (12-20); Aspartate Amino Transferase 130 U/L (5-31); Blood Urea Nitrogen 8 mg/dL (9-16); Calcium 7.7 mg/dL (8.4-10.2); Carbon Dioxide 25 mmol/L (22-29); Chloride 106 mmol/L (96-108); Creatinine Clr Calc Pharmacy 40.3; Estimated Glomerular Filt Rate > 60; Lipase 18 U/L (8-78); Magnesium 1.3 mg/dL (1.6-2.6); Potassium 3.2 mmol/L (3.3-5.1); Sodium 142 mmol/L (135-145); Total Protein 6.5 g/dL (6.5-8.0)
--- NOTE | 2025-07-08 19:57 | ED.GENADULT ---
HPI - General Adult General Chief complaint: General Medical Stated complaint: abd pain, started after vomiting Time Seen by Provider: 07/08/25 19:56 Source: patient Mode of arrival: ambulatory Limitations: no limitations History of Present Illness ED Provider: Dr. Rios HPI narrative: This is a 84-year-old female history of choledocholithiasis complicated by perforation of duodenum during ERCP, anemia, UTI, osteopenia presented hospital today for evaluation of right upper quadrant pain and epigastric pain since yesterday. Patient has been having persistent nausea and vomiting. She stated that she is feeling better at this time. Her nausea has improved since her arrival here. Denies any fever at this time. Denies any dysuria. Related Data Home Medications ?Medication ?Instructions ?Recorded ?Confirmed folic acid 800 mcg tablet 0.8 mg PO DAILY 06/10/24 04/29/25 Previous Rx's ?Medication ?Instructions ?Recorded right mastectomy bra #2 ea 10/22/22 omeprazole 40 mg capsule,delayed 40 mg PO BID@0630,1630 #60 caps 06/20/24 release folic acid 1 mg tablet 1 mg PO DAILY #90 tabs 08/20/24 quetiapine 25 mg tablet (Seroquel) 25 mg PO DAILY #90 tabs 10/01/24 metoprolol tartrate 25 mg tablet 12.5 mg (1/2 x 25 mg) PO BID 90 10/04/24 days #90 tabs magnesium oxide 400 mg PO BID #180 tabs 10/31/24 gabapentin 300 mg capsule 300 mg PO BEDTIME 90 days #90 caps 11/01/24 Stair lift #1 ea 01/22/25 rivaroxaban 20 mg tablet (Xarelto) 20 mg PO DAILY #90 tabs 02/15/25 nitrofurantoin 100 mg PO BID 10 days #20 caps 04/22/25 monohydrate/macrocrystals 100 mg capsule (Macrobid) vibegron 75 mg tablet (Gemtesa) 75 mg PO DAILY #30 tabs 04/29/25 Allergies Allergy/AdvReac Type Severity Reaction Status Date / Time sulfamethoxazole (From Allergy Severe Itching Verified 07/08/25 17:44 Bactrim) trimethoprim (From Bactrim) Allergy Severe Itching Verified 07/08/25 17:44 cortisone (Cortisone) Allergy Mild PT STATES, Verified 07/08/25 17:44 hx TB IT COULD AFFECT CRYSTALS IN LUNG prochlorperazine (From Allergy Mild LEG Verified 07/08/25 17:44 Compazine) NUMBNESS hydrochlorothiazide Allergy Unknown RASH Verified 07/08/25 17:44 levofloxacin (Levaquin) Allergy Unknown Wakefulness, Verified 07/08/25 17:44 nausea, shaking Sulfa (Sulfonamide AdvReac Intermediate rash Verified 07/08/25 17:44 Antibiotics) codeine AdvReac Unknown NAUSEA/VOMI Verified 07/08/25 17:44 TING chocolate Allergy Unknown severe Uncoded 07/08/25 17:44 headaches/vomiting Review of Systems Review of Systems: Pertinent review of systems as mentioned in HPI. All other system otherwise negative. [facility] Past Medical History [facility] Narrative: Medical history as mentioned in HPI Medical History Diarrhea Pressure ulcer Chronic bacteriuria Urinary incontinence Bilateral hip pain Venous insufficiency of both lower extremities Bilateral knee pain Arthritis of lumbosacral spine Chronic diarrhea TIA (transient ischemic attack) UTI (urinary tract infection) Hallucination Confusion Supratherapeutic INR Weakness Cognitive change Pernicious anemia Osteoporosis Peripheral neuropathy Impaired fasting glucose Irritable bowel syndrome Breast cancer Thrombocytopenia Hypomagnesemia Hx of hypercalcemia History of alcohol use B12 deficiency Fatty liver, alcoholic HTN (hypertension) Hx of metabolic acidosis GERD (gastroesophageal reflux disease) Hx of deep venous thrombosis Hx of tuberculosis History of pulmonary embolism History of right breast cancer Osteoarthritis of left knee Surgical History Hx of exploratory laparotomy (06/14/24) History of left knee surgery History of arthroplasty of left knee Hx of adenoidectomy History of esophagogastroduodenoscopy (EGD) History of evacuation of hematoma Hx of colonoscopy History of cataract surgery History of cystoscopy History of knee replacement procedure of right knee History of lumpectomy of right breast History of tonsillectomy H/O right mastectomy S/P SASHA-BSO (total abdominal hysterectomy and bilateral salpingo-oophorectomy) History of appendectomy Family History Family History Father No problems noted. Mother No problems noted. Other No family history of cancer Social History Social History Household Members: Spouse Housing: House Are you a primary healthcare analyst to a significant other at home: No Do you presently have visiting nurse or other home services: No Alcohol intake: current Alcohol intake frequency: 0-2 drinks per day Alcohol type: other Comment: see RN note Patient Tobacco Use Status: Never used Tobacco Smoked in Last 30 Days: No e-Cigarette/Vaping Use: Never Used Second Hand Smoke Exposure: No Use of substances other than those prescribed or required for medical reasons: No Advance Directives: Yes Advance Directives on File: Yes Advance Directives Date on File: 12/24/21 service: No Current occupational status: retired Cognitive needs: No Hearing needs: No Vision needs: Yes Physical Exam ED Exam Exam: General: Pleasant, no distress, interacting appropriately Head: Normacephalic, atraumatic ENT: oral mucosa dry neck supple, no tracheal deviation Cardiovascular: regular rate, regular rhythm, no murmurs, rubbing, gallops Respiratory: CTAB, no wheeze, rales, rhonchi Gastrointestinal: Soft, non distended, positive Clancy's sign right upper quadrant tenderness on palpation, guarding Extremities: No limb pain or swelling, no calf tenderness Neurological: Awake and alert, no facial droop noted Skin: Warm and dry Psychiatric: Appropriate mood and thoughts Vital Signs: Vital Signs - 24 hr 07/08/25 17:35 07/08/25 17:45 07/08/25 18:48 Temperature 98 F 98 F 97.6 F Pulse Rate 96 96 102 H Respiratory Rate 15 15 15 Blood Pressure 166/73 H 166/73 H 152/69 H Pulse Oximetry 97 97 98 Oxygen Delivery Method Room Air Room Air Room Air 07/08/25 20:31 07/08/25 23:10 07/09/25 00:44 Temperature 97.5 F 97.6 F Pulse Rate 101 H 111 H 109 H Respiratory Rate 18 18 17 Blood Pressure 136/65 147/79 H 147/79 H Pulse Oximetry 98 96 99 Oxygen Delivery Method Room Air Room Air Room Air BMI result Body Mass Index 18.4 Medications Administered Discontinued Medications Generic Name Dose Route Start Last Admin Trade Name Freq PRN Reason Stop Dose Admin Magnesium Sulfate 2 gm in 50 mls @ 50 mls/hr 07/08/25 20:13 07/08/25 21:50 Magnesium Sulfate/H2o IV 07/08/25 21:12 Infused ONCE ONE Infusion Potassium Chloride 10 meq in 100 mls @ 100 mls/hr 07/08/25 20:15 07/08/25 23:41 Potassium Chloride/H20 IV 07/08/25 22:14 Infused Q1H ADAM Infusion Lactated Ringer's 1,000 mls @ 999 mls/hr 07/08/25 20:45 07/08/25 23:41 Lr IV 07/08/25 21:45 Infused .Q1H1M ADAM Infusion Piperacillin Sod/Tazobactam 100 mls @ 200 mls/hr 07/09/25 00:34 07/09/25 01:40 Sod 4.5 gm/ Sodium Chloride IV 07/09/25 01:03 Infused ONCE ONE Infusion Iohexol 85 ml 07/08/25 22:17 07/08/25 22:17 Iohexol 350 Mg/Ml 100 Ml Infus..Btl IV 07/08/25 22:18 85 ml ONCE ONE Administration Medical Decision Making Medical Decision Making MDM Narrative: This is a 84-year-old female history of choledocholithiasis complicated by duodenal perforation presenting to ER today for right upper quadrant pain. Patient had abdominal lab work performed. No sign of leukocytosis. Hemoglobin stable at 11.7. Patient does have elevated total bilirubin at 2.4. Hypomagnesemia at 1.3. Patient does have elevated off as a 279 lipase lap level is normal. No elevation of lactic acid. Blood culture obtained for the patient at this time. Patient's CT imaging did show signs of choledocholithiasis with signs of cholecystitis. I did discuss this case with Dr. Hutson who recommends hospital admission with GI consult. I discussed the case with Dr. Hogan from GI. He recommends the patient be transferred to a tertiary center due to prior complication with duodenal perforation. Discussed the finding of lab results and imaging with the patient and patient's . They would prefer [facility]. However I did discuss with them that [facility] may not have bed for transfer. Place a call to [facility] unfortunately they do not have a bed for transfer. Discussed this with patient and . I recommended that patient be transferred to a tertiary center per Dr. Hogan recommendation. They would like us to try [facility]. Discussed the case with transfer center at [facility]. They will plan to accept the patient as a ER at ER transfer. Accepting doctor Dr. Bryan Differential Diagnosis Differential Diagnoses: The differential diagnosis associated with the presentation includes Cholecystitis, choledocholithiasis, gastritis Consult Healthcare Provider Management of the patient was discussed with: Grain Picker (Dr. Hutson (Surgery), Dr. Hogan (GI)) Lab Data MDM Lab Attestation statement: I reviewed the patient's lab results. 07/08/25 18:55 07/08/25 18:55 Labs: Lab Results 07/08/25 07/08/25 07/09/25 Range/Units 18:55 21:39 00:35 WBC 9.3 (4.8-10.8) X10*3/uL RBC 3.62 L (4.20-5.50) X10*6/uL Hgb 11.7 L (12.0-16.0) g/dl Hct 35.9 L (37.0-47.0) % MCV 99.2 H (80.0-98.0) fL MCH 32.3 (27.0-33.0) pg MCHC 32.6 (31.0-35.0) g/dl RDW 19.9 H (11.0-16.0) % Plt Count 139 L (160-400) X10*3/uL MPV 9.7 (9.4-12.3) fL Immature Gran % (Auto) 0.2 (0.0-0.4) % Neut % (Auto) 84.4 H (45-73) % Lymph % (Auto) 6.8 L (20-40) % [place] % (Auto) 8.2 (2-11) % Eos % (Auto) 0.1 (0-4) % Baso % (Auto) 0.3 (0-2) % Lymph # (Auto) 0.6 L (1.2-4.9) X10*3/uL [place] # (Auto) 0.8 (0.1-1.2) X10*3/uL Eos # (Auto) 0.0 (0.0-0.4) X10*3/uL Baso # (Auto) 0.0 (0.0-0.2) X10*3/uL Abs Immat Gran (auto) 0.02 (0.00-0.03) X10*3/uL Absolute Neuts (auto) 7.8 (2.0-8.3) x10*3/uL Absolute Nucleated RBC 0.000 (0.0-0.012) X10*3/uL Nucleated RBC % (auto) 0.0 (0.0-0.2) /100WBC PT 12.4 (10.9-12.4) SEC INR 1.1 (0.9-1.1) APTT 28.1 (26.7-34.1) SEC Sodium 142 (135-145) mmol/L Potassium 3.2 L (3.3-5.1) mmol/L Chloride 106 (96-108) mmol/L Carbon Dioxide 25 (22-29) mmol/L Anion Gap 14 (12-20) BUN 8 L (9-16) mg/dL Creatinine 0.84 (0.5-1.4) mg/dL Estim Creat Clear Calc 40.3 Estimated GFR > 60 Random Glucose 108 (60-115) mg/dL Lactic Acid 2.0 (0.5-2.0) mmol/L Calcium 7.7 L D (8.4-10.2) mg/dL Magnesium 1.3 L* (1.6-2.6) mg/dL Total Bilirubin 2.4 H (0.0-1.0) mg/dL Direct Bilirubin 1.7 H (0.0-0.5) mg/dL AST 130 H (5-31) U/L ALT 21 (0-31) U/L Alkaline Phosphatase 279 H (39-117) U/L Total Protein 6.5 (6.5-8.0) g/dL Albumin 3.1 L (3.5-5.0) g/dL Lipase 18 (8-78) U/L Urine Color Yellow Urine Appearance Clear Urine pH 6.0 (5.0-9.0) Ur Specific [place] 1.010 (1.005-1.025) Urine Protein Negative (Neg-Trace) mg/dL Urine Glucose (UA) Negative (Negative) mg/dL Urine Ketones Negative (Negative) mg/dL Urine Blood Negative (Negative) Urine Nitrite Negative (Negative) Ur Leukocyte Esterase Trace H (Negative) Urine RBC 0-2 (0-2) /HPF Urine WBC 6-10 H (0-5) /HPF Ur Squamous Epith Cells 0-2 (0-2) /HPF Urine Bacteria 4+ (None Seen) Hyaline Casts 0-2 (0-2) /LPF Independent Interpretation I performed an independent interpretation of an: CT Scan Radiology Impression Discussion of test interpretation with radiology: I have reviewed the radiologist's reading. Critical Care Time Critical Care Time Critical Care Time: Yes Total Critical Care Time: 50 Attestation: Time is exclusive of separately billable procedures. Time includes: direct patient care, patient reassessment, coordination of patient care, interpretation of data (laboratory data, pulse oximetry, arterial blood gases and chest xrays), review of patient's medical records, medical consultation and documentation of patient care. Procedures excluded from critical care time: central intravenous line placement and electrocardiography. Discharge Plan Discharge Clinical Impression: Choledocholithiasis with acute cholecystitis Patient Disposition: [facility] Transfer Details: [facility] Prescriptions: No Action quetiapine [Seroquel] 25 mg tablet 25 mg PO DAILY Qty: 90 2RF metoprolol tartrate 25 mg tablet 12.5 mg PO BID 90 Days Qty: 90 3RF magnesium oxide 400 mg magnesium tablet 400 mg PO BID Qty: 180 2RF gabapentin 300 mg capsule 300 mg PO BEDTIME 90 Days Qty: 90 3RF Xarelto 20 mg tablet 20 mg PO DAILY Qty: 90 0RF Rx Instructions: must administer with evening meal nitrofurantoin monohyd/m-cryst [Macrobid] 100 mg capsule 100 mg PO BID 10 Days Qty: 20 0RF Rx Instructions: must administer with a meal/food folic acid 1 mg Tablet 1 mg PO DAILY Qty: 90 3RF folic acid 800 mcg Tablet 0.8 mg PO DAILY omeprazole 40 mg Capsule,Delayed Release(Dr/Ec) 40 mg PO BID@0630,1630 Qty: 60 0RF (DME) right mastectomy bra See Rx Instructions .Route .MEDSUPPLY Qty: 2 0RF Rx Instructions: As directed (DME) Stair lift See Rx Instructions .Route .MEDSUPPLY Qty: 1 0RF Rx Instructions: For customer # [id number] Gemtesa 75 mg tablet 75 mg PO DAILY Qty: 30 3RF Print Language: Mongolian
--- NOTE | 2025-07-08 20:13 | ECG_ITS ---
Test Reason : HYPOMAGNESEMIA Blood Pressure : */* mmHG Vent. Rate : 103 BPM Atrial Rate : 103 BPM P-R Int : 192 ms QRS Dur : 94 ms QT Int : 368 ms P-R-T Axes : 57 21 45 degrees QTcB Int : 482 ms Sinus tachycardia Otherwise normal ECG When compared with ECG of 01-May-2025 13:33, No significant changes seen Referred By: Bonny Rois Electronically Signed By: WESTON AMARO
[2025-07-08] MEDS: Magnesium Sulfate/H2O 2 GM/50 ML PIGGYBACK IV (20:20)
[2025-07-08] MEDS: Potassium Chloride/H20 10 MEQ/100 ML PIGGYBACK 100 MEQ IV ×2 (20:21→21:57)
[2025-07-08 20:31] VITALS: BP 136/65; PULSE 101; RESP 18; TEMP 36.4; O2SAT 98
[2025-07-08] MEDS: Lactated Ringers 1,000 ML 999 ML IV (20:40)
--- OUTSIDE RECORDS SUMMARY | 2025-07-08 21:47 | XMS_ITS | Encounter Summary ---
Author Organization [facility] Address [address] [place] [id number] Phone Care Team Providers Care Manager Sas Name Role Phone Ric Schafer MD Primary Care Provider [phone] Encounter Details Date Type Department Care Team (Late st Contact Info) Description 12/29/2020 Transcribe Orders [facility] Specimen Processing [address] [place] [address] Kenneth Krishna MD 38 [facility], [address], [address] [place] [address] [email or web address] Routine general medical examination at a health [...] EST) MAGNESIUM 2.1 1.6 - 2.6 mg/dL [facility] Blood 12/29/2020 5:49 AM EST 12/29/2020 9:17 AM EST us Kenneth Krishna MD LAB BLOOD ORDERABLES Final Resul t [facility] [address] [place] [address] documented in this encounter Visit Diagnoses Diagnosis Routine general medical examination at a health care facility- Primary documented in this encounter Care Teams Manager Sas Relationship Specialty Start Date End Date iRc Schafer MD [email or web address] PCP - General Hospitalist 11/13/20 documented as of this encounter Additional Source Comments The information contained in this document represents components of the legal health record. It is not the complete legal health record.[facility]
--- OUTSIDE RECORDS SUMMARY | 2025-07-08 21:47 | XMS_ITS | Clinical Summary ---
Author Organization [facility] Address [address] [place] [id number] Phone Care Team Providers Care Area Operations Manager Name Role Phone Ric Schafer MD Primary Care Provider [phone] Allergies Active Allergy Reactions Criticality Noted Date Comments Chocolate 12/04/2020 Codeine 12/04/2020 Hydrocortisone 12/04/2020 Hydrochlorothiazide 12/04/2020 Levofloxacin 12/04/2020 Prochlorperazine 12/04/2020 Medications traZODone (DESYREL) 50 MG tablet Take 50 mg by mouth 3 (three) times a day. For 15 days Active acetaminophen (TYLENOL) 325 mg tablet Take 650 mg by mouth every 6 (six) hours as needed for mild pain or fever. Active gabapentin (NEURONTIN) 300 MG capsule Take 300 mg by mouth 3 (three) times a day. Active warfarin (COUMADIN) 2.5 MG tablet Take 2.5 mg by mouth daily. At 5pm for five days Active lactobacillus rhamnosus, GG, (CULTURELLE) 10 billion cell capsule Take 1 capsule by mouth 2 (two) times a day. For 10 days Active magnesium hydroxide (MOM) 400 mg/5 mL Susp Take 30 mL by mouth daily as needed (for no BM in 3 days). Active bisacodyl (DULCOLAX) [address] 10 mg rectally daily as needed (if no result from MOM). Active monobasic and dibasic sodium phosphates (79244 ENEMA) 19-7 gram/[address] 1 enema rectally daily as needed (if dulcolax not effective). Active menthol/zinc oxide (DERMASEPTIN TP) by Topical (Top) route. To coccyx and buttocks Active fesoterodine (TOVIAZ) 4 mg Tb24 Take 4 mg by mouth nightly at bedtime. Active magnesium oxide (MAG-OX) 400 mg (241.3 mg elemental) tablet Take 400 mg by mouth 2 (two) times a day. Active folic acid (FOLVITE) 1 MG tablet Take 1 mg by mouth daily. Active famotidine (PEPCID) 40 MG tablet Take 40 mg by mouth 2 (two) times a day. Active Social History Tobacco Use Types Packs/Day Years Used Date Smoking Tobacco: Unknown Education Answer Date Recorded Are you interested in more education? Not on yoandy e 02/18/2023 Are you concerned about learning? Not on file 02/18/2023 No 02/18/2023 No 02/18/2023 Digital Access Answer Date Recorded No 03/19/2023 No 03/19/2023 No 03/19/2023 Reliable internet access at home? Not on file 03/19/2023 Device with a working camera? Not on file Comments Unknown Sex and Gender Information Value Date Recorded Sex Assigned at Female 11/28/2020 2:46 PM EST Legal Sex Female 6:29 AM EST Gender Identity Female 11/28/2020 2:46 PM EST Sexual Orientation Straight 11/28/2020 2: 46 PM EST Last Filed Vital Signs Vital Sign Reading Time Taken Comments Blood Pressure 115/51 12/04/2020 12:00 PM EST Pulse 92 12/04/2020 12:00 PM EST Temperature 36.5 C (97.7 F) 12/04/2020 10:15 AM EST Respiratory Rate 16 12/04/2020 12:00 PM EST Oxygen Saturation 98% 12/04/2020 12:00 PM EST Inhaled Oxygen Concentration - - Weight - - Height 160 cm (5' 3 ) 12/04/2020 10:15 AM EST Body Mass Index - - Plan of Treatment Health Maintenance Due Date Last Done Comments Adult Td,Tdap Booster 1942 DEPRESSION SCREENING 1954 ZOSTER VACCINES (1 of 2) 1992 OSTEOPOROSIS SCREENING INITIAL (ONE-TIME) 2007 RSV VACCINE (1 - 1-dose 75+ series) 2017 INFLUENZA VACCINE (#1) 2025 , 09/20/2018, 08/05/2017, Additional history exists COVID-19 VACCINE (2024- season) 2025 11/16/2020 PNEUMOCOCCAL VACCINES (50+ years) Completed 02/02/2019, 09/20/2016 HEPATITIS A VACCINES Aged Out No long er eligible based on patient's age to complete this topic HIB VACCINES Aged Out No longer eligi ble based on patient's age to complete this topic MENINGOCOCCAL VACCINES (ACWY) Aged Out No longer eligible based on patient's age to complete this topic MENINGOCOCCAL VACCINES (B) Aged Out N o longer eligible based on patient's age to complete this topic Medical Devices Not on file [place] [id number] [facility] MEDEX SUPPLEMENT MEDICARE PART A & B [employer] MEDEX SUPPLEMENT MEDICARE PART A & B [employer] MEDEX SUPPLEMENT MEDICARE PART A & B [employer] MEDEX SUPPLEMENT MEDICARE PART A & B [employer] MEDEX SUPPLEMENT MEDICARE PART A & B [facility] MEDEX SUPPLEMENT MEDICARE PART A & B [employer] MEDEX SUPPLEMENT MEDICARE PART A & B [employer] MEDEX SUPPLEMENT MEDICARE PART A & B [employer] MEDEX SUPPLEMENT Advance Directives For more information, please contact: [phone] (9AM - 5PM [facility], Tuesday-Tuesday) Documents on File Type Date Recorded Patient Cosmetic Maker Expl anation MOLST 12/10/2020 3:28 PM Healthcare Proxy 12/01/2020 7:46 PM Care Teams Area Operations Manager Relationship Specialty Start Date End Date Ric Schafer MD [email or web address] [email or web address] - General Hospitalist 11/13/20 Additional Source Comments The information contained in this document represents components of the legal health record. It is not the complete legal health record.[facility]
[2025-07-08 21:52] LABS: Appearance Urine Clear; Glucose Urine UA Negative (Negative); PH 6.0 (5.0-9.0); Specific Gravity - Urine 1.010 (1.005-1.025); UMIC TRIGGER UACC YES
[2025-07-08 21:59] LABS: UACC Culture Trigger YES
[2025-07-08] MEDS: iohexoL 350 MG/ML 100 ML INFUS..BTL 85 ML IV (22:17)
[2025-07-08 23:10] VITALS: BP 147/79; PULSE 111; RESP 18; TEMP 36.4; O2SAT 96
[2025-07-09 00:44] VITALS: BP 147/79; PULSE 109; RESP 17; O2SAT 99
--- NOTE | 2025-07-09 03:37 | ED.GENADULT ---
HPI - General Adult General Chief complaint: General Medical Stated complaint: abd pain, started after vomiting Time Seen by Provider: 07/08/25 19:56 Source: patient Mode of arrival: ambulatory Limitations: no limitations Related Data Home Medications ?Medication ?Instructions ?Recorded ?Confirmed folic acid 800 mcg tablet 0.8 mg PO DAILY 06/10/24 04/29/25 Previous Rx's ?Medication ?Instructions ?Recorded right mastectomy bra #2 ea 10/22/22 omeprazole 40 mg capsule,delayed 40 mg PO BID@0630,1630 #60 caps 06/20/24 release folic acid 1 mg tablet 1 mg PO DAILY #90 tabs 08/20/24 quetiapine 25 mg tablet (Seroquel) 25 mg PO DAILY #90 tabs 10/01/24 metoprolol tartrate 25 mg tablet 12.5 mg (1/2 x 25 mg) PO BID 90 10/04/24 days #90 tabs magnesium oxide 400 mg PO BID #180 tabs 10/31/24 gabapentin 300 mg capsule 300 mg PO BEDTIME 90 days #90 caps 11/01/24 Stair lift #1 ea 01/22/25 rivaroxaban 20 mg tablet (Xarelto) 20 mg PO DAILY #90 tabs 02/15/25 nitrofurantoin 100 mg PO BID 10 days #20 caps 04/22/25 monohydrate/macrocrystals 100 mg capsule (Macrobid) vibegron 75 mg tablet (Gemtesa) 75 mg PO DAILY #30 tabs 04/29/25 Allergies Allergy/AdvReac Type Severity Reaction Status Date / Time sulfamethoxazole (From Allergy Severe Itching Verified 07/08/25 17:44 Bactrim) trimethoprim (From Bactrim) Allergy Severe Itching Verified 07/08/25 17:44 cortisone (Cortisone) Allergy Mild PT STATES, Verified 07/08/25 17:44 hx TB IT COULD AFFECT CRYSTALS IN LUNG prochlorperazine (From Allergy Mild LEG Verified 07/08/25 17:44 Compazine) NUMBNESS hydrochlorothiazide Allergy Unknown RASH Verified 07/08/25 17:44 levofloxacin (Levaquin) Allergy Unknown Wakefulness, Verified 07/08/25 17:44 nausea, shaking Sulfa (Sulfonamide AdvReac Intermediate rash Verified 07/08/25 17:44 Antibiotics) codeine AdvReac Unknown NAUSEA/VOMI Verified 07/08/25 17:44 TING chocolate Allergy Unknown severe Uncoded 07/08/25 17:44 headaches/vomiting PMFSH Past Medical History Medical History Diarrhea Pressure ulcer Chronic bacteriuria Urinary incontinence Bilateral hip pain Venous insufficiency of both lower extremities Bilateral knee pain Arthritis of lumbosacral spine Chronic diarrhea TIA (transient ischemic attack) UTI (urinary tract infection) Hallucination Confusion Supratherapeutic INR Weakness Cognitive change Pernicious anemia Osteoporosis Peripheral neuropathy Impaired fasting glucose Irritable bowel syndrome Breast cancer Thrombocytopenia Hypomagnesemia Hx of hypercalcemia History of alcohol use B12 deficiency Fatty liver, alcoholic HTN (hypertension) Hx of metabolic acidosis GERD (gastroesophageal reflux disease) Hx of deep venous thrombosis Hx of tuberculosis History of pulmonary embolism History of right breast cancer Osteoarthritis of left knee Surgical History Hx of exploratory laparotomy (06/14/24) History of left knee surgery History of arthroplasty of left knee Hx of adenoidectomy History of esophagogastroduodenoscopy (EGD) History of evacuation of hematoma Hx of colonoscopy History of cataract surgery History of cystoscopy History of knee replacement procedure of right knee History of lumpectomy of right breast History of tonsillectomy H/O right mastectomy S/P SASHA-BSO (total abdominal hysterectomy and bilateral salpingo-oophorectomy) History of appendectomy Family History Family History Father No problems noted. Mother No problems noted. Other No family history of cancer Social History Social History Household Members: Spouse Housing: House Are you a primary healthcare science specialist to a significant other at home: No Do you presently have visiting nurse or other home services: No Alcohol intake: current Alcohol intake frequency: 0-2 drinks per day Alcohol type: other Comment: see RN note Patient Tobacco Use Status: Never used Tobacco e-Cigarette/Vaping Use: Never Used Second Hand Smoke Exposure: No Advance Directives Date on File: 12/24/21 service: No Current occupational status: retired Cognitive needs: No Hearing needs: No Vision needs: Yes Physical Exam ED Vital Signs: Vital Signs - 24 hr 09/15/25 17:35 07/08/25 17:45 07/08/25 18:48 Temperature 98 F 98 F 97.6 F Pulse Rate 96 96 102 H Respiratory Rate 15 15 15 Blood Pressure 166/73 H 166/73 H 152/69 H Pulse Oximetry 97 97 98 Oxygen Delivery Method Room Air Room Air Room Air 07/08/25 20:31 07/08/25 23:10 07/09/25 00:44 Temperature 97.5 F 97.6 F Pulse Rate 101 H 111 H 109 H Respiratory Rate 18 18 17 Blood Pressure 136/65 147/79 H 147/79 H Pulse Oximetry 98 96 99 Oxygen Delivery Method Room Air Room Air Room Air 07/09/25 03:59 Temperature 98.9 F Pulse Rate 109 H Respiratory Rate 17 Blood Pressure 147/79 H Pulse Oximetry 99 Oxygen Delivery Method Room Air BMI result Body Mass Index 18.4 Medications Administered Discontinued Medications Generic Name Dose Route Start Last Admin Trade Name Freq PRN Reason Stop Dose Admin Magnesium Sulfate 2 gm in 50 mls @ 50 mls/hr 07/08/25 20:13 07/08/25 21:50 Magnesium Sulfate/H2o IV 07/08/25 21:12 Infused ONCE ONE Infusion Potassium Chloride 10 meq in 100 mls @ 100 mls/hr 07/08/25 20:15 07/08/25 23:41 Potassium Chloride/H20 IV 07/08/25 22:14 Infused Q1H ADAM Infusion Lactated Ringer's 1,000 mls @ 999 mls/hr 07/08/25 20:45 07/08/25 23:41 Lr IV 07/08/25 21:45 Infused .Q1H1M ADAM Infusion Piperacillin Sod/Tazobactam 100 mls @ 200 mls/hr 07/09/25 00:34 07/09/25 01:40 Sod 4.5 gm/ Sodium Chloride IV 07/09/25 01:03 Infused ONCE ONE Infusion Iohexol 85 ml 07/08/25 22:17 07/08/25 22:17 Iohexol 350 Mg/Ml 100 Ml Infus..Btl IV 07/08/25 22:18 85 ml ONCE ONE Administration Medical Decision Making Lab Data 07/08/25 18:55 07/08/25 18:55 Labs: Lab Results 07/08/25 07/08/25 07/09/25 Range/Units 18:55 21:39 00:35 WBC 9.3 (4.8-10.8) X10*3/uL RBC 3.62 L (4.20-5.50) X10*6/uL Hgb 11.7 L (12.0-16.0) g/dl Hct 35.9 L (37.0-47.0) % MCV 99.2 H (80.0-98.0) fL MCH 32.3 (27.0-33.0) pg MCHC 32.6 (31.0-35.0) g/dl RDW 19.9 H (11.0-16.0) % Plt Count 139 L (160-400) X10*3/uL MPV 9.7 (9.4-12.3) fL Immature Gran % (Auto) 0.2 (0.0-0.4) % Neut % (Auto) 84.4 H (45-73) % Lymph % (Auto) 6.8 L (20-40) % [place] % (Auto) 8.2 (2-11) % Eos % (Auto) 0.1 (0-4) % Baso % (Auto) 0.3 (0-2) % Lymph # (Auto) 0.6 L (1.2-4.9) X10*3/uL [place] # (Auto) 0.8 (0.1-1.2) X10*3/uL Eos # (Auto) 0.0 (0.0-0.4) X10*3/uL Baso # (Auto) 0.0 (0.0-0.2) X10*3/uL Abs Immat Gran (auto) 0.02 (0.00-0.03) X10*3/uL Absolute Neuts (auto) 7.8 (2.0-8.3) x10*3/uL Absolute Nucleated RBC 0.000 (0.0-0.012) X10*3/uL Nucleated RBC % (auto) 0.0 (0.0-0.2) /100WBC PT 12.4 (10.9-12.4) SEC INR 1.1 (0.9-1.1) APTT 28.1 (26.7-34.1) SEC Sodium 142 (135-145) mmol/L Potassium 3.2 L (3.3-5.1) mmol/L Chloride 106 (96-108) mmol/L Carbon Dioxide 25 (22-29) mmol/L Anion Gap 14 (12-20) BUN 8 L (9-16) mg/dL Creatinine 0.84 (0.5-1.4) mg/dL Estim Creat Clear Calc 40.3 Estimated GFR > 60 Random Glucose 108 (60-115) mg/dL Lactic Acid 2.0 (0.5-2.0) mmol/L Calcium 7.7 L D (8.4-10.2) mg/dL Magnesium 1.3 L* (1.6-2.6) mg/dL Total Bilirubin 2.4 H (0.0-1.0) mg/dL Direct Bilirubin 1.7 H (0.0-0.5) mg/dL AST 130 H (5-31) U/L ALT 21 (0-31) U/L Alkaline Phosphatase 279 H (39-117) U/L Total Protein 6.5 (6.5-8.0) g/dL Albumin 3.1 L (3.5-5.0) g/dL Lipase 18 (8-78) U/L Urine Color Yellow Urine Appearance Clear Urine pH 6.0 (5.0-9.0) Ur Specific [place] 1.010 (1.005-1.025) Urine Protein Negative (Neg-Trace) mg/dL Urine Glucose (UA) Negative (Negative) mg/dL Urine Ketones Negative (Negative) mg/dL Urine Blood Negative (Negative) Urine Nitrite Negative (Negative) Ur Leukocyte Esterase Trace H (Negative) Urine RBC 0-2 (0-2) /HPF Urine WBC 6-10 H (0-5) /HPF Ur Squamous Epith Cells 0-2 (0-2) /HPF Urine Bacteria 4+ (None Seen) Hyaline Casts 0-2 (0-2) /LPF Discharge Plan Discharge Clinical Impression: Choledocholithiasis with acute cholecystitis Patient Disposition: Xfer [facility] Transfer Details: [facility] Prescriptions: No Action quetiapine [Seroquel] 25 mg tablet 25 mg PO DAILY Qty: 90 2RF metoprolol tartrate 25 mg tablet 12.5 mg PO BID 90 Days Qty: 90 3RF magnesium oxide 400 mg magnesium tablet 400 mg PO BID Qty: 180 2RF gabapentin 300 mg capsule 300 mg PO BEDTIME 90 Days Qty: 90 3RF Xarelto 20 mg tablet 20 mg PO DAILY Qty: 90 0RF Rx Instructions: must administer with evening meal nitrofurantoin monohyd/m-cryst [Macrobid] 100 mg capsule 100 mg PO BID 10 Days Qty: 20 0RF Rx Instructions: must administer with a meal/food folic acid 1 mg Tablet 1 mg PO DAILY Qty: 90 3RF folic acid 800 mcg Tablet 0.8 mg PO DAILY omeprazole 40 mg Capsule,Delayed Release(Dr/Ec) 40 mg PO BID@0630,1630 Qty: 60 0RF (DME) right mastectomy bra See Rx Instructions .Route .MEDSUPPLY Qty: 2 0RF Rx Instructions: As directed (DME) Stair lift See Rx Instructions .Route .MEDSUPPLY Qty: 1 0RF Rx Instructions: For customer # [id number] Gemtesa 75 mg tablet 75 mg PO DAILY Qty: 30 3RF Interventions: Acute Care Transfer Worksheet (ED) Last Done: 07/09/25 03:59 Discharge Date/Time: 07/09/25 04:00 Print Language: Greek
--- NOTE | 2025-07-09 03:58 | PC.NURSE ---
Report called in to [facility]. Spoke with nrse at [phone]. Accepted report, notified patient is loading onto stretcher currently.
[2025-07-09 03:59] VITALS: BP 147/79; PULSE 109; RESP 17; TEMP 37.2; O2SAT 99
== END 2025-07-09 04:00 | disposition short-term general hospital (02) ==
PROVIDERS: Emergency Provider Student in an Organized Health Care Education/Training Program; PCP Internal Medicine
DX: K80.00 Calculus of gallbladder with acute cholecystitis without obstruction (principal); E83.42 Hypomagnesemia; R00.0 Tachycardia, unspecified; Z79.899 Other long term (current) drug therapy; Z51.81 Encounter for therapeutic drug level monitoring
CPT/HCPCS: 36415; 74177; 76705; 80053; 81001; 82248; 83605; 83690; 83735; 85025; 85610; 85730; 87040; 87086; 87088; 87186; 93005; 96361; 96365; 96367; 96375; 99285; 99291; J2543; J3475; J3480; J7120; Q9967

== ENCOUNTER → 2025-07-08 20:13 | Outpatient (BNV) | payer MEDICARE, SELFPAY | PROVIDERS: Emergency Provider Student in an Organized Health Care Education/Training Program; PCP Internal Medicine; Visit Provider Internal Medicine | DX: R00.0 Tachycardia, unspecified (principal) | CPT/HCPCS: 93010 ==

== ENCOUNTER → 2025-07-08 20:25 | Outpatient (BNV) | payer MEDICARE, SELFPAY | PROVIDERS: Emergency Provider Student in an Organized Health Care Education/Training Program; PCP Internal Medicine; Visit Provider Student in an Organized Health Care Education/Training Program | DX: K80.20 Calculus of gallbladder without cholecystitis without obstruction (principal) | CPT/HCPCS: 74177 ==

== ENCOUNTER 2025-08-02 10:21 | Outpatient (AMB) | payer MEDICARE, SELFPAY ==
--- NOTE | 2025-08-02 10:29 | MHC.PC.OV ---
Vital Signs 08/02/25 10:30 Height 5 ft 4.5 in Weight 109 lb 12.643 oz BMI 18.6 BP 124/80 Blood Pressure Location Lt brachial Position Sitting Pulse Source Pulse Oximeter Oxygen Delivery Method Room Air Intake Visit Reasons: [facility] 07/15 Labor Standards Director Required: No Accompanied by: Self / Same As Patient Allergies sulfamethoxazole (From Bactrim) Allergy (Severe, Verified 08/02/25 10:31) Itching trimethoprim (From Bactrim) Allergy (Severe, Verified 08/02/25 10:31) Itching cortisone (Cortisone) Allergy (Mild, Verified 08/02/25 10:31) PT STATES, hx TB IT COULD AFFECT CRYSTALS IN LUNG prochlorperazine (From Compazine) Allergy (Mild, Verified 08/02/25 10:31) LEG NUMBNESS hydrochlorothiazide Allergy (Unknown, Verified 08/02/25 10:31) RASH levofloxacin (Levaquin) Allergy (Unknown, Verified 08/02/25 10:31) Wakefulness, nausea, shaking Sulfa (Sulfonamide Antibiotics) Adverse Reaction (Intermediate, Verified 08/02/25 10:31) rash codeine Adverse Reaction (Unknown, Verified 08/02/25 10:31) NAUSEA/VOMITING chocolate Allergy (Unknown, Uncoded 08/02/25 10:31) severe headaches/vomiting Tobacco use date assessed: 08/02/25 Fall risk assessment: 2 + Falls in past year Last assessed Fall Risk: 08/02/25 Dental Screening Dental Screen Date: 08/02/25 Did you have a dental visit in the last 12 months?: Yes Did you have a dental problem in the last 6 months where you did not have access to dental care?: No Was dental information given to patient?: Patient has dentist HPI HPI Comments History of Present Illness Details 84 y/o Female patient who presents to the clinic today for HDF. She was Admitted at [facility] on 07/09 - 07/16 for an evaluation and treatment of Choledicholithiasis. She did have ERCP procedure done at the Hospital on 07/10 where they removed Gallstones. She does have f/u appointment with GI (Dr. Hogan) - does not remember the date. Today reports abdominal pain has resolved - no vomiting, nausea, or diarrhea. Pt brought in a Medical clearance Form from her Dentist Office - she needs clearance to have Routine cleaning. Advised to leave Form for Dr. WALTON to sign. [facility] Medical History Diarrhea Pressure ulcer Chronic bacteriuria Urinary incontinence Bilateral hip pain Venous insufficiency of both lower extremities Bilateral knee pain Arthritis of lumbosacral spine Chronic diarrhea TIA (transient ischemic attack) UTI (urinary tract infection) Hallucination Confusion Supratherapeutic INR Weakness Cognitive change Pernicious anemia Osteoporosis Peripheral neuropathy Impaired fasting glucose Irritable bowel syndrome Breast cancer Thrombocytopenia Hypomagnesemia Hx of hypercalcemia History of alcohol use B12 deficiency Fatty liver, alcoholic HTN (hypertension) Hx of metabolic acidosis GERD (gastroesophageal reflux disease) Hx of deep venous thrombosis Hx of tuberculosis History of pulmonary embolism History of right breast cancer Osteoarthritis of left knee Surgical History Hx of exploratory laparotomy (06/14/24) History of left knee surgery History of arthroplasty of left knee Hx of adenoidectomy History of esophagogastroduodenoscopy (EGD) History of evacuation of hematoma Hx of colonoscopy History of cataract surgery History of cystoscopy History of knee replacement procedure of right knee History of lumpectomy of right breast History of tonsillectomy H/O right mastectomy S/P SASHA-BSO (total abdominal hysterectomy and bilateral salpingo-oophorectomy) History of appendectomy Family History Father No problems noted. Mother No problems noted. Other No family history of cancer Social History Household Members: Spouse Housing: House Are you a primary health care recruiter to a significant other at home: No Do you presently have visiting nurse or other home services: No Alcohol intake: current Alcohol intake frequency: 0-2 drinks per day Alcohol type: other Comment: see RN note Patient Tobacco Use Status: Never used Tobacco e-Cigarette/Vaping Use: Never Used Second Hand Smoke Exposure: No Advance Directives Date on File: 12/24/21 service: No Current occupational status: retired Cognitive needs: No Hearing needs: No Vision needs: Yes Questionnaire Thrive Questionnaire Date Thrive assessed: 02/22/25 I am a: Patient What is your living situation today?: I have a steady place to live Within the past 12 months, did the food you bought not last and you didn't have the money to get more?: Never true Within the past 12 months, did you worry whether your food would run out before you got money to buy more?: Never true Do you have trouble paying for medicines?: No Do you have trouble getting transportation to medical appointments?: No Do you have trouble paying your heating and electricity bill?: No Do you have trouble taking care of your child, family member or friend?: No Do you have trouble with day-to-day activities such as bathing, preparing meals, shopping, managing finances, etc.?: No Are you currently unemployed and looking for a job?: Yes Are you interested in more education?: No Please select the resources that you would like help with: None Currently or been in a relationship where the following occur: No concerns reported THRIVE Score: 0 AUDIT C Alcohol Use Questionnaire (AUDIT-C) 1. How often do you have a drink containing alcohol?: Monthly or less 2. How many drinks containing alcohol do you have on a typical day when you are drinking?: 1 or 2 3. How often do you have six or more drinks on one occasion?: Daily or almost daily Total Score: 5 CEDRIC-7 AMB Questionnaire CEDRIC-7 Date CEDRIC - 7 assessed: 11/23/24 Source: Developed by Drs. Praful Kohler, Vonda Vasquez, Jj Dewitt and colleagues, with an educational bharti from [employer]. Physical exam (Primary Care) Vital Signs: Last Vital Signs BP 124/80 08/02/25 10:30 Oxygen Delivery Method Room Air 08/02/25 10:30 BMI result Body Mass Index 18.6 Tobacco/Smoking Status: Tobacco use Status Tobacco use date assessed 08/02/25 08/02/25 10:39 Patient Tobacco Use Status Never used Tobacco 08/02/25 10:39 e-Cigarette/Vaping Use Never Used 08/02/25 10:39 Thrive Assessment: Date of Thrive Assessment Date Thrive assessed 02/22/25 08/02/25 10:39 Currently or been in a relationship where the following occur: No concerns reported Const General: no acute distress Nutritional Appearance: thin Orientation/consciousness: patient oriented x3 Resp Effort & Inspection: normal respiratory effort Cardio Rate: regular rate GI Inspection: Yes normal to inspection Palpation (GI): Soft to palpation, not firm, nontender, no guarding, not rigid and No hepatosplenomegaly present Neuro General: patient oriented x3, gait normal and moves all extremities Psych Speech and movement: Normal speech and movement present Coding Level of Care Code Est Pt Level 4 (55253) Diagnoses Choledocholithiasis K80.50 Time Spent (min) 20 Assessment & Plan Assessment & Plan (1) Choledocholithiasis: Comment: ERCP June 2025 balloon extraction. Code(s): K80.50 - Calculus of bile duct without cholangitis or cholecystitis without obstruction Category: Medical Plan: Resolved. F/U with GI as scheduled. F/U with PCP.
[2025-08-02 10:30] VITALS: BP 124/80; BMI 18.6
== END 2025-08-02 11:07 | disposition home or self-care (01) ==
LOC: HO.HMCH 10:22
PROVIDERS: PCP Internal Medicine; Visit Provider Nurse Practitioner Family
DX: K80.50 Calculus of bile duct without cholangitis or cholecystitis without obstruction (principal)

== ENCOUNTER → 2025-08-02 10:21 | Outpatient (BNVA) | payer MEDICARE, SELFPAY | PROVIDERS: PCP Internal Medicine; Visit Provider Nurse Practitioner Family | DX: K80.50 Calculus of bile duct without cholangitis or cholecystitis without obstruction (principal) | CPT/HCPCS: 99212 ==

== ENCOUNTER 2025-09-30 09:44 | Outpatient (REF) | payer MEDICARE, SELFPAY ==
--- NOTE | ~2025-09-30 | MM_ITS ---
EXAMINATION: MM SCREENING DIGITAL BREAST TOMOSYNTHESIS, LEFT CLINICAL INFORMATION: Screening. Asymptomatic. Right mastectomy. COMPARISON: Mammography: This study is compared with prior exams dating back to TECHNIQUE: Digital breast tomosynthesis is performed in both the craniocaudal and mediolateral oblique views along with computer-aided detection (CAD). Synthesized 2D images are generated from the tomosynthesis. FINDINGS: There are scattered areas of fibroglandular density. There are no significant masses, abnormal calcifications, or other abnormalities. MM/MM tomosynthesis screening LT IMPRESSION: No mammographic evidence of malignancy. ASSESSMENT: BI-RADS Category 1: Negative RECOMMENDATION: Routine annual mammography screening. 1 year F/U This examination should not preclude the clinical evaluation of a suspicious palpable abnormality. This patient's information was entered into a reminder system with a target due date for their next mammogram. Electronically signed by: Sarah Cano DO 10/01/2025 09:00 PM [facility]
== END 2025-09-30 09:45 | disposition home or self-care (01) ==
LOC: HO.MAMMO 09:44
PROVIDERS: PCP Internal Medicine; Visit Provider Internal Medicine
DX: Z12.31 Encounter for screening mammogram for malignant neoplasm of breast (principal); Z90.11 Acquired absence of right breast and nipple
CPT/HCPCS: 77063; 77067

== ENCOUNTER → 2025-09-30 10:00 | Outpatient (BNV) | payer MEDICARE, SELFPAY | PROVIDERS: PCP Internal Medicine; Visit Provider Internal Medicine | DX: Z12.31 Encounter for screening mammogram for malignant neoplasm of breast (principal) | CPT/HCPCS: 77063; 77067 ==

== ENCOUNTER 2025-10-15 12:19 | Outpatient (AMB) | payer MEDICARE, SELFPAY ==
[2025-10-15 12:40] VITALS: BP 110/64; PULSE 61; RESP 18; O2SAT 100; BMI 17.8
--- NOTE | 2025-10-15 12:40 | MHC.PC.OV ---
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: No Accompanied by: Self / Same As Patient Allergies sulfamethoxazole (From Bactrim) Allergy (Severe, Verified 10/15/25 12:41) Itching trimethoprim (From Bactrim) Allergy (Severe, Verified 10/15/25 12:41) Itching cortisone (Cortisone) Allergy (Mild, Verified 10/15/25 12:41) PT STATES, hx TB IT COULD AFFECT CRYSTALS IN LUNG prochlorperazine (From Compazine) Allergy (Mild, Verified 10/15/25 12:41) LEG NUMBNESS hydrochlorothiazide Allergy (Unknown, Verified 10/15/25 12:41) RASH levofloxacin (Levaquin) Allergy (Unknown, Verified 10/15/25 12:41) Wakefulness, nausea, shaking Sulfa (Sulfonamide Antibiotics) Adverse Reaction (Intermediate, Verified 10/15/25 12:41) rash codeine Adverse Reaction (Unknown, Verified 10/15/25 12:41) NAUSEA/VOMITING chocolate Allergy (Unknown, Uncoded 08/02/25 10:31) severe headaches/vomiting Medication List - Last Reconciled 10/15/25 by Vinicius Burnett MD ascorbic acid (vitamin C) mg PO folic acid 1 mg PO DAILY gabapentin 300 mg PO BEDTIME magnesium oxide 400 mg PO BID quetiapine (Seroquel) 25 mg PO DAILY [right mastectomy bra As directed] rivaroxaban (Xarelto) 20 mg PO DAILY [Stair lift For customer # [id number]] vibegron (Gemtesa) 75 mg PO DAILY Tobacco use date assessed: 10/15/25 Fall risk assessment: 2 + Falls in past year Last assessed Fall Risk: 10/15/25 Dental Screening Dental Screen Date: 10/15/25 Did you have a dental visit in the last 12 months?: No Did you have a dental problem in the last 6 months where you did not have access to dental care?: No Was dental information given to patient?: No HPI HPI Comments History of Present Illness Details History of Present Illness The patient is an 85-year-old female presenting for a follow-up and management of multiple chronic medical problems. Her medical history is notable for hypertension, impaired glucose tolerance, right breast cancer in 2006, GERD with Albarran's esophagus, lumbar radiculopathy, hypercholesterolemia, dementia, history of pulmonary embolism, stroke, and COPD. Regarding her gastrointestinal history, she has a history of cholelithiasis and underwent an ERCP with gallstone removal in June. She continues to experience chronic diarrhea, which did not improve after the procedure. Stool testing was positive for blood, and she has a gastroenterology follow-up scheduled for May 2024; her last colonoscopy was in May 2024. In terms of her musculoskeletal history, the patient sustained a fall of unknown cause, resulting in a left comminuted intertrochanteric femoral fracture which was treated with pinning at [facility]. She has had subsequent falls at home and reports not using her cane or walker due to difficulty with stairs. A spine test in March 2023 showed arthritis, and she reports back aches with prolonged standing. The patient reports new bilateral leg numbness from her feet to her upper legs, which is worse in the morning upon waking and improves after moving her toes for several minutes. She also notes stiffness in the morning that resolves with movement, consistent with arthritis. She has not had nerve testing on her legs for the numbness. For urinary incontinence, the patient previously had sacral neuromodulation test leads which were removed. She was started on Gemtesa and reports significant improvement, with nocturia reduced from hourly to about three times per night. For health maintenance, her last bone density scan was in 2022 and her last mammogram was in September 2025. She is on anticoagulation with Xarelto and takes metoprolol 12.5 mg twice a day for hypertension. Her last blood work in June showed low potassium and abnormal liver numbers. Health Maintenance Laboratory Monitoring: Will provide a request for fasting blood work to be completed in three months to re-evaluate low potassium and abnormal liver numbers. Cancer Screening: Continue follow-up with hematology/oncology; the patient is up-to-date with her mammogram and will follow up with gastroenterology. Social History - Functional Status: The patient has experienced multiple falls, including after her hip fracture surgery. - Assistive Devices: She has a cane and a walker but does not use them inside her house. - Housing: The patient lives in a home with stairs, which she states makes using a walker impossible. - Support System: Someone lives with her but is unable to lift her if she falls. Results - Labs: Blood work from June showed low potassium and abnormal liver numbers. - Imaging: Spine test from March 2023 showed arthritis. - Stool studies: A prior stool test was positive for blood. - Procedures: ERCP with gallstone removal was performed in June. - Procedures: Her last colonoscopy was in May 2024. - Procedures: Her last bone density scan was in 2022. [facility] Medical History (Updated 10/15/25 @ 13:33 by Vinicius Burnett MD) Cholelithiasis Diarrhea Pressure ulcer Chronic bacteriuria Urinary incontinence Bilateral hip pain Venous insufficiency of both lower extremities Bilateral knee pain Arthritis of lumbosacral spine Chronic diarrhea TIA (transient ischemic attack) UTI (urinary tract infection) Hallucination Confusion Supratherapeutic INR Weakness Cognitive change Pernicious anemia Osteoporosis Peripheral neuropathy Impaired fasting glucose Irritable bowel syndrome Breast cancer Thrombocytopenia Hypomagnesemia Hx of hypercalcemia History of alcohol use B12 deficiency Fatty liver, alcoholic HTN (hypertension) Hx of metabolic acidosis GERD (gastroesophageal reflux disease) Hx of deep venous thrombosis Hx of tuberculosis History of pulmonary embolism History of right breast cancer Osteoarthritis of left knee Surgical History Hx of exploratory laparotomy (06/14/24) History of left knee surgery History of arthroplasty of left knee Hx of adenoidectomy History of esophagogastroduodenoscopy (EGD) History of evacuation of hematoma Hx of colonoscopy History of cataract surgery History of cystoscopy History of knee replacement procedure of right knee History of lumpectomy of right breast History of tonsillectomy H/O right mastectomy S/P SASHA-BSO (total abdominal hysterectomy and bilateral salpingo-oophorectomy) History of appendectomy Family History Father No problems noted. Mother No problems noted. Other No family history of cancer Social History Household Members: Spouse Housing: House Are you a primary farm or ranch animal caretaker to a significant other at home: No Do you presently have visiting nurse or other home services: No Alcohol intake: current Alcohol intake frequency: 0-2 drinks per day Alcohol type: other Comment: see RN note Patient Tobacco Use Status: Never used Tobacco e-Cigarette/Vaping Use: Never Used Second Hand Smoke Exposure: No Advance Directives Date on File: 12/24/21 service: No Current occupational status: retired Cognitive needs: No Hearing needs: No Vision needs: Yes Questionnaire Thrive Questionnaire Date Thrive assessed: 10/15/25 I am a: Patient What is your living situation today?: I have a steady place to live Within the past 12 months, did the food you bought not last and you didn't have the money to get more?: Never true Within the past 12 months, did you worry whether your food would run out before you got money to buy more?: Never true Do you have trouble paying for medicines?: No Do you have trouble getting transportation to medical appointments?: No Do you have trouble paying your heating and electricity bill?: No Do you have trouble taking care of your child, family member or friend?: No Do you have trouble with day-to-day activities such as bathing, preparing meals, shopping, managing finances, etc.?: No Are you currently unemployed and looking for a job?: Yes Are you interested in more education?: No Currently or been in a relationship where the following occur: No concerns reported THRIVE Score: 0 CEDRIC-7 AMB Questionnaire CEDRIC-7 Date CEDRIC - 7 assessed: 11/23/24 Source: Developed by Drs. Praful Kohler, Vonda Vasquez, Jj Dewitt and colleagues, with an educational bharti from [employer]. Review of Systems Narrative Review of Systems - Neurological: Reports numbness in both legs from the feet up to the upper legs, which is most prominent upon waking in the morning and improves with movement. - Musculoskeletal: Reports leg stiffness upon waking that improves with movement. - Gastrointestinal: Reports chronic diarrhea that was not resolved by gallstone removal. - Genitourinary: Reports improvement in urinary frequency and nocturia (from hourly to three times per night) since starting Gemtesa. Physical exam (Primary Care) Vital Signs: Last Vital Signs Pulse 61 10/15/25 12:40 Resp 18 10/15/25 12:40 BP 110/64 10/15/25 12:40 Pulse Ox 100 10/15/25 12:40 Oxygen Delivery Method Room Air 10/15/25 12:40 BMI result Body Mass Index 17.8 Tobacco/Smoking Status: Tobacco use Status Tobacco use date assessed 10/15/25 10/15/25 12:49 Patient Tobacco Use Status Never used Tobacco 10/15/25 12:49 e-Cigarette/Vaping Use Never Used 10/15/25 12:49 Thrive Assessment: Date of Thrive Assessment Date Thrive assessed 10/15/25 10/15/25 12:49 Currently or been in a relationship where the following occur: No concerns reported Narrative Physical Exam - Extremities: Peripheral pulses are palpable in the feet. - Extremities: Swelling is noted on the left foot and is confined to the foot. Const General: alert; No acute distress Eyes Conjunctivae: conjunctivae normal Resp Auscultation: clear to auscultation bilaterally Cardio Rate: regular rate Rhythm: regular rhythm GI Inspection: Yes normal to inspection Extrem General: Yes normal to inspection and No edema Coding Level of Care Code Est Pt Level 4 (74936) Add On Problem Visit Only Diagnoses Choledocholithiasis K80.50 GERD (gastroesophageal reflux disease) K21.9 Essential hypertension I10 Hypertension type: essential hypertension Hypercholesterolemia E78.00 History of pulmonary embolism Z86.711 Osteopenia M85.80 History of right breast cancer Z85.3 Closed left femoral fracture S72.92XA Bilateral leg numbness R20.0 Fall W19.XXXA Encounter type: initial encounter Recurrent falls R29.6 Assessment & Plan Assessment & Plan (1) Choledocholithiasis: Comment: ERCP June 2025 balloon extraction. Code(s): K80.50 - Calculus of bile duct without cholangitis or cholecystitis without obstruction Category: Medical Plan: June 2025 stone extraction, low-fat diet (2) GERD (gastroesophageal reflux disease): Comment: Albarran's esophagus, April 2014 EGD moderate GERD 2019 Code(s): K21.9 - Gastro-esophageal reflux disease without esophagitis Category: Medical Plan: Avoid the foods that causes that usually spicy foods, tomato products, juices, coffee, soda and foods that your sensitive to. After eating do not lie down, allow 3-4 hours before in lie down. And keep the head of bed above 30 degrees to avoid the acid from going up. (3) HTN (hypertension): Code(s): I10 - Essential (primary) hypertension Category: Medical Qualifiers: Hypertension type: essential hypertension Qualified Code(s): I10 - Essential (primary) hypertension Plan: Continue with blood pressure medication. Decrease salt intake and exercise on metoprolol 12.5 mg twice a day (4) Hypercholesterolemia: Code(s): E78.00 - Pure hypercholesterolemia, unspecified Category: Medical Plan: Avoid fried foods, chicken skin, eggs, butter margarine, pastries and meat. Be it pork or beef they have a lot of cholesterol continue to monitor (5) History of pulmonary embolism: Code(s): Z86.711 - Personal history of pulmonary embolism Category: Medical Plan: Continue with anticoagulation with Xarelto (6) Osteopenia: Comment: August 2020, 09/12/2023 Code(s): M85.80 - Other specified disorders of bone density and structure, unspecified site Category: Medical Plan: Discussed about calcium and vitamin-D and medications to help with bone density (7) History of right breast cancer: Comment: 2006 lumpectomy and chemotherapy Code(s): Z85.3 - Personal history of malignant neoplasm of breast Category: Medical Plan: Continue to follow-up with Hematology-Oncology and up-to-date with mammogram (8) Closed left femoral fracture: Comment: [facility] Pinning 2024 Code(s): S72.92XA - Unspecified fracture of left femur, initial encounter for closed fracture Category: Medical Plan: Conservative management (9) Bilateral leg numbness: Code(s): R20.0 - Anesthesia of skin Category: Medical (10) Fall: Code(s): W19.XXXA - Unspecified fall, initial encounter Category: Medical Qualifiers: Encounter type: initial encounter Qualified Code(s): W19.XXXA - Unspecified fall, initial encounter (11) Recurrent falls: Code(s): R29.6 - Repeated falls Category: Medical Plan Plan Patient was informed and verbally consented to the use of an ambient scribe for clinic note documentation during this visit. 1. Bilateral Lower Extremity Numbness The patient complains of numbness in both legs, which is worse in the morning. The differential diagnosis includes peripheral neuropathy and lumbar radiculopathy secondary to spinal arthritis. A nerve conduction study was discussed as a diagnostic option to differentiate the cause, but the patient declined at this time as the symptoms are not currently bothersome enough to proceed with the test. The patient is currently taking gabapentin. Will continue to monitor her symptoms. 2. Fall Risk The patient has a history of multiple falls, including recently at home, placing her at high risk for injury, particularly given her use of an anticoagulant. She has a walker but does not use it in the house due to stairs. After discussing various options, including home modifications which the patient declined, a referral for physical therapy for evaluation and treatment to improve balance and prevent future falls was agreed upon for a few sessions. 3. Osteoporosis The patient's last bone density scan was in 2022. Given her age and fracture history, a repeat bone density scan will be ordered to monitor her bone health. A discussion was had regarding calcium, vitamin D, and medications for bone density. 4. Chronic Medical Conditions Management Hypertension (I10): Continue metoprolol 12.5 mg twice a day. History of Pulmonary Embolism (Z86.711): Continue anticoagulation with Xarelto. Hypercholesterolemia (E78.5): Continue to monitor. Dementia (F03.90): Advised to maintain a healthy diet, engage in brain-stimulating tasks, and remain physically active. Urinary Incontinence (R32): Patient reports good symptom control with Gemtesa; continue current treatment. Discussion Notes I reviewed the patient's extensive and complex medical history with her. We discussed her new symptom of bilateral leg numbness and the potential causes, including nerve issues from her back or in her legs. I offered a nerve test to investigate further, explaining that it involves needles, and she declined at this time, stating the symptoms were not bothersome enough. I expressed significant concern regarding her history of falls, especially given that she is on an anticoagulant which increases her risk of serious bleeding. We discussed strategies to prevent future falls, but she noted that using her walker is not feasible in her home due to stairs. I recommended physical therapy to help with strength and balance, and she reluctantly agreed to try a couple of sessions. We also reviewed her health maintenance needs. I advised a repeat bone density scan since her last one was in 2022, and she agreed. I informed her of the abnormal findings on her last lab work from June and will provide an order for repeat fasting labs in three months' time. Patient Instructions - We have made a referral for physical therapy to help you with strength and balance to prevent falls. - An order for a bone density scan has been placed. - Our office will arrange for you to be called to schedule both the physical therapy and bone density scan appointments. - Please have your blood work done in three months. - You should not eat for 8 hours before the blood test, but you may have sips of water. - Continue to take your medications as prescribed, including Metoprolol for blood pressure, Xarelto for blood thinning, and Gemtesa for your bladder. - Continue your follow-up appointments with your other doctors, including the cancer doctor and stomach doctor. - Please let us know if your leg numbness gets worse or if you have another fall. Orders: Orders XR DEXA axial skeleton Today M81.0 - Age-related osteoporosis without current pathological fracture, S72.92XA - Unspecified fracture of left femur, initial encounter for closed fracture Reticulocyte Count 3 Months R73.01 - Impaired fasting glucose PT Evaluation and Treatment Today R29.6 - Repeated falls Complete Blood Count Auto Diff 3 Months R73.01 - Impaired fasting glucose Comprehensive Met. Panel 3 Months R73.01 - Impaired fasting glucose Hemoglobin A1c 3 Months R73.01 - Impaired fasting glucose Free T4 (Free Thyroxine) 3 Months R73.01 - Impaired fasting glucose Ferritin 3 Months R73.01 - Impaired fasting glucose Lipid Panel 3 Months E78.00 - Pure hypercholesterolemia, unspecified, R73.01 - Impaired fasting glucose IRON PROFILE 3 Months R73.01 - Impaired fasting glucose Thyroid Stimulating Hormone 3 Months R73.01 - Impaired fasting glucose UA CC w/rflx Micro + Cult 3 Months R30.0 - Dysuria, R73.01 - Impaired fasting glucose Vitamin B12 and Folate 3 Months R73.01 - Impaired fasting glucose Vitamin D 25-OH Total 3 Months R73.01 - Impaired fasting glucose Magnesium 3 Months R73.01 - Impaired fasting glucose
--- OUTSIDE RECORDS SUMMARY | 2025-10-15 13:26 | XMS_ITS | Clinical Summary ---
Author Organization [facility] Address [address] [place] [address] Care Team Providers Care Basketball Scout Name Role Phone Vinicius Burnett MD Primary Care Provider [phone] Allergies Active Allergy Reactions Criticality Noted Date Comments Chocolate GI Intolerance/Nausea/Vomiting Low 12/04 Codeine Unknown/Patient and Family Unable to Define Medium 12/04/2020 Cortisone GI Intolerance/Nausea/Vomiting Low 04/10 Hydrochlorothiazide Itching Low 12/04/2020 Hydrocortisone GI Intolerance/Nausea/Vomiting Low 0 12/04/2020 Levofloxacin Unknown/Patient and Family Unable to Define Medium 12/04/2020 Prochlorperazine Unknown/Patient and Family Unable to Define Medium 12/04/2020 Sulfa Antibiotics Unknown/Patient and Family Unable to Define Medium 04/10/2021 Trimethoprim Unknown/Patient and Family Unable to Define Medium 04/10/2021 Medications acetaminophen (TYLENOL) 325 MG tablet Take 2 tablets (650 mg total) by mouth 4 times daily (every 6 hours) as needed. Active folic acid (FOLVITE) 1 MG tablet Take 1 tablet (1 mg total) by mouth daily. 5 Active metoPROLOL TARTRATE (LOPRESSOR) 50 MG tablet Take 1 tablet (50 mg total) by mouth 2 (two) times a day. Hold for systolic less than 100 and HR less than 60 5 Active Xarelto 20 MG tablet Take 1 tablet (20 mg total) by mouth every evening. 5 Active PANTOprazole (PROTONIX) 40 MG EC tablet Take 1 tablet (40 mg total) by mouth every morning before breakfast. Active magnesium oxide 400 (240 Mg) MG Tab tablet Take 1 tablet (400 mg total) by mouth 2 (two) times a day. Take 2 hours apart from other medications; take with food Active loperamide (IMODIUM A-D) 2 MG capsule Take 1 capsule (2 mg total) by mouth 4 (four) times a day as needed for diarrhea. Active vibegron (Gemtesa) 75 mg tablet Take 1 tablet (75 mg total) by mouth daily. Active ferrous sulfate 325 (65 FE) MG EC tablet Take 1 tablet (325 mg total) by mouth daily. Take 2 hours before or 4 hours after acid reducers. Active gabapentin (NEURONTIN) 100 MG capsuleIndicatio ns:Choledocholit hiasis Take 1 capsule (100 mg total) by mouth nightly. 30 capsule 5 Active QUEtiapine (SEROquel) 25 MG tabletIndication s:Choledocholith iasis Take 0.5 tablets (12.5 mg total) by mouth nightly. 15 tablet 5 Active thiamine mononitrate (VITAMIN B-1) 100 MG tabletIndication s:Choledocholith iasis Take 1 tablet (100 mg total) by mouth daily. 30 tablet 5 Active multivitamin with minerals Tab tabletIndication s:Choledocholith iasis Take 1 tablet by mouth daily. 30 tablet 5 Active Active Problems Problem Noted Date Diagnosed Date Moderate malnutrition: moder ate fat loss (tricep), moderate muscle loss (quadricep and gastrocnemius) 07/13/2025 Assessment & Plan (07/13/2025 2:05 PM EDT): MVI added Choledocholithiasis 07/09/2025 Assessment & Plan (07/14/2025 5:09 PM EDT): Status post ERCP, no further surgical intervention Tolerating diet, no repeat send diarrhea episode since 4 AM, no abdominal pain She is encephalopathic, Family is concerned that this may be a UTI. 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 difficile for 48 hours since receiving bowel regimen On Augmentin Assessment & Plan (07/12/2025 5:14 PM EDT): Status post ERCP, per my discussion with surgical team, she does not need lap deepak or a PERC Angelique tube given that she has a patent cystic duct and her LFTs and leukocytosis are getting better. To resume Xarelto. Will advance diet to low-fat diet. She has insomnia, usually will be up at night, she ends up having agitated episodes when nursing tell her to stay in bed. Will try and do behavioral redirection. Gabapentin reduced to 100 mg nightly, Seroquel 12.[address] had [address] a [address] head given her anisocoria there is no evidence of acute territorial infarct, patchy hypodensity in the subcortical and periventricular matter white matter is nonspecific but suggestive of chronic ischemic disease Assessment & Plan (07/11/2025 2:12 PM EDT): S/p ERCP 07/10 Planned for cholecystectomy on 07/12, CLD at present, NPO past MN IVF Abdominal pain 07/09/2025 Assessment & Plan (07/14/2025 5:09 PM EDT): Status post ERCP, no further surgical intervention Tolerating diet, no repeat send diarrhea episode since 4 AM, no abdominal pain She is encephalopathic, Family is concerned that this may be a UTI. 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 difficile for 48 hours since receiving bowel regimen On Augmentin Assessment & Plan (07/12/2025 5:14 PM EDT): Status post ERCP, per my discussion with surgical team, she does not need lap deepak or a PERC Angelique tube given that she has a patent cystic duct and her LFTs and leukocytosis are getting better. To resume Xarelto. Will advance diet to low-fat diet. She has insomnia, usually will be up at night, she ends up having agitated episodes when nursing tell her to stay in bed. Will try and do behavioral redirection. Gabapentin reduced to 100 mg nightly, Seroquel 12.5 mg.I had obtained a CT head given her anisocoria there is no evidence of acute territorial infarct, patchy hypodensity in the subcortical and periventricular matter white matter is nonspecific but suggestive of chronic ischemic disease Assessment & Plan (07/11/2025 2:12 PM EDT): S/p ERCP 07/10 Planned for cholecystectomy on 07/12, CLD at present, NPO past MN IVF Assessment & Plan (07/10/2025 5:37 PM EDT): Underwent ERCP for choledocholithiasis, plan for cholecystectomy tomorrow, cardiology consulted for risk stratification Continue Zosyn N.p.o., IV fluids Cholecystitis 07/09/2025 Social History Tobacco Use Types Packs/Day Years Used Date Smoking Tobacco: Never Assessed [facility] Utilities Answer Date Recorded In the past 12 months has [employer], gas, oil, or water [employer] threatened to shut off services in your home? No 07/10/2025 Hunger Vital Sign Answer Date Recorded Within the past 12 months, y ou worried that your food would run out before you got the money to buy more. Never true 07/10/20 25 Within the past 12 months, t he food you bought just didn't last and you didn't have money to get more. Never true 07/10/2025 PRAPARE - Transportation Answer Date Re corded In the past 12 months, has l ack of transportation kept you from medical appointments or from getting medications? No 06/24 In the past 12 months, has l ack of transportation kept you from meetings, work, or from getting things needed for daily living? No 07/10/2025 Housing Stability Vital Sign Answer Greg e Recorded In the last 12 months, was t here a time when you were not able to pay the mortgage or rent on time? No 07/10/2025 In the past 12 months, how m any times have you moved where you were living? 0 07/10/2025 At any time in the past 12 m [facility], were you homeless or living in a half-way (including now)? No 07/10/2025 Comments No Sex and Gender Information Value Date Recorded Sex Assigned at Female 07/09/2025 5:31 AM EDT Legal Sex Female 6:19 PM EST Gender Identity Female 07/09/2025 5:31 AM EDT Sexual Orientation Heterosexual (straight) 07/09 5:31 AM EDT Last Filed Vital Signs Vital Sign Reading Time Taken Comments Blood Pressure 192/96 07/15/2025 10:59 AM EDT Pulse 92 07/15/2025 10:24 AM EDT Temperature 36.3 C (97.3 F) 07/15/2025 8:07 AM EDT Respiratory Rate 18 07/15/2025 8:07 AM EDT Oxygen Saturation 100% 07/15/2025 8:07 AM EDT Inhaled Oxygen Concentration - - Weight 54.4 kg (120 lb) 07/09/2025 4:52 PM EDT Height - - Body Mass Index - - Plan of Treatment Health Maintenance Due Date Last Done Comments Advance Care Planning 1940 DTaP/Tdap/Td Vaccines (1 - Tdap) 1961 Pneumococcal Vaccines 50+ (1 of 1 - PCV) 1992 Zoster (Shingles) Vaccine (1 of 2) 1992 DXA Bone Density (Females,Ag es 65 and older) 2007 RSV Vaccine 50 years and old er and Patients (1 - 1-dose 75+ series) 2017 Influenza Vaccine 05/24/2025 08/03/2024 COVID-19 Vaccine (2024-2 6 season) 2025 Hepatitis B Vaccines Aged Out No long er eligible based on patient's age to complete this topic Insurance MEDICARE PART A & B MEDICARE PART A & B [facility] Advance Directives * Full Code (Latest Code Status on File) Date Activated Date Inactivated Comments 07/09/2025 4:29 PM Patient will b e FULL CODE prior to procedure and then will transition to DNR/DNI per her wishes Question Answer Comments Decision Thoroughly Discussed with: Patient Care Teams Basketball Scout Relationship Specialty Start Date End Date Vinicius Burnett MD [address] [place] [address] [place] [id number] PCP - General Internal Medicine 07/09/25
--- OUTSIDE RECORDS SUMMARY | 2025-10-15 13:26 | XMS_ITS ---
Author Name [facility] Organization Unknown Results Test Name/Text Value Interpretation Date Range Source WBC num/area UrnS HPF 5.0 per hpf Above high normal 07/15/20 25 0 - 4 HHCCT Clarity Ur Clear 07/15/2025 HHCCT Leukocyte esterase Ur Ql Strip Trace Abnormal 07/15/2025 - HHCCT Glucose Ur Strip-mCnc Negative 07/15/2025 - HHCCT Nitrite Ur Ql Strip Negative 07/15/2025 - HHCCT Ketones Ur Strip-mCnc Trace Abnormal 07/15/2025 - HHCCT RBC num/area UrnS HPF 8.0 per hpf Above high normal 07/15/20 25 0 - 4 HHCCT pH Ur Strip 6.5 07/15/2025 5 - 8 HHCCT Color Ur Dark yellow 07/15/2025 HHCCT Squamous num/area UrnS HPF 7.0 per hpf 07/15/2025 HHCCT Bilirub Ur Strip-mCnc Negative 07/15/2025 - HHCCT Sp Gr Ur Strip 1.015 07/15/2025 1.005 - 1.03 H HCCT Hgb Ur Ql Strip Trace Abnormal 07/15/2025 - HHC CT Prot Ur Strip-mCnc 30.0 mg/dL Abnormal 07/15/2025 - HHCCT Hyaline Casts num/area UrnS LPF 1.0 per lpf 07/15/2025 0 - 4 HHCCT Globulin Ser Calc-mCnc 3.0 g/dL 07/13/2025 1.5 - 3.9 HHCCT Albumin/Glob SerPl 1.0 Ratio 07/13/2025 1 - 3 HHCCT CO2 SerPl-sCnc 25.0 mmol/L 07/13/2025 22 - 33 HH CCT BUN/Creat SerPl 5.0 Ratio Below low normal 07/13/2025 10 - 2 5 HHCCT AST SerPl-cCnc 28.0 U/L 07/13/2025 10 - 50 HHCC T Anion Gap Bld-sCnc 12.0 07/13/2025 7 - 17 HHCCT Potassium SerPl-sCnc 3.6 mmol/L 07/13/2025 3.4 - 5 .3 HHCCT Glucose SerPl-mCnc 78.0 mg/dL 07/13/2025 65 - 99 HHCCT Albumin SerPl-mCnc 2.9 g/dL Below low normal 07/13/2025 3.4 - 4.8 HHCCT Prot SerPl-mCnc 5.9 g/dL Below low normal 07/13/2025 6.3 - 8.3 HHCCT BUN SerPl-mCnc 3.0 mg/dL Below low normal 07/13/2025 8 - 21 HHCCT GFR/BSA.pred SerPlBld [id number] 89.0 07/13/2025 59 - HHCCT Chloride SerPl-sCnc 101.0 mmol/L 07/13/2025 98 - 1 07 HHCCT ALT SerPl-cCnc 41.0 U/L 07/13/2025 10 - 50 HHCC T Creat SerPl-mCnc 0.62 mg/dL 07/13/2025 0.4 - 1.1 H HCCT Calcium SerPl-mCnc 8.1 mg/dL Below low normal 07/13/2025 8.7 - 10.5 HHCCT Bilirub SerPl-mCnc 1.3 mg/dL Above high normal 07/13/2025 0. 2 - 1 HHCCT ALP SerPl-cCnc 210.0 U/L Above high normal 07/13/2025 32 - 1 22 HHCCT Sodium SerPl-sCnc 138.0 mmol/L 07/13/2025 136 - 14 5 HHCCT Magnesium SerPl-mCnc 1.7 mg/dL 07/13/2025 1.6 - 2. 7 HHCCT PMV Bld Auto 9.9 fL 07/13/2025 7.5 - 12.5 HHCCT Immature Platelet Fraction 6.3 % 07/13/2025 1.2 - 8.6 HHCCT MCH RBC Qn Auto 32.2 pg Above high normal 07/13/2025 27 - 31 HHCCT Hct VFr Bld Auto 34.6 % Below low normal 07/13/2025 35 - 47 HHCCT WBC num Bld Auto 4.5 Thou/uL 07/13/2025 4 - 11 HHCCT Hgb Bld-mCnc 10.9 g/dL Below low normal 07/13/2025 11.7 - 15 .7 HHCCT MCHC RBC Auto-mCnc 31.5 g/dL 07/13/2025 30 - 36 HHCCT RDW RBC Auto-Rto 20.3 % Above high normal 07/13/2025 11.5 - 14.5 HHCCT RBC num Bld Auto 3.38 Mil/uL Below low normal 07/13/2025 4 - 5.4 HHCCT MCV RBC Auto 102.0 fL Above high normal 07/13/2025 80 - 100 HHCCT Platelet num Bld Auto 125.0 Thou/uL Below low normal 025 150 - 450 HHCCT Phosphate SerPl-mCnc 2.2 mg/dL Below low normal 07/12/2025 2 .7 - 4.5 HHCCT GFR/BSA.pred SerPlBld [id number] 64.0 07/12/2025 59 - HHCCT Calcium SerPl-mCnc 7.9 mg/dL Below low normal 07/12/2025 8.7 - 10.5 HHCCT Anion Gap Bld-sCnc 12.0 07/12/2025 7 - 17 HHCCT BUN SerPl-mCnc 5.0 mg/dL Below low normal 07/12/2025 8 - 21 HHCCT Glucose SerPl-mCnc 81.0 mg/dL 07/12/2025 65 - 99 HHCCT Potassium SerPl-sCnc 2.9 mmol/L Below low normal 07/12/2025 3.4 - 5.3 HHCCT Chloride SerPl-sCnc 102.0 mmol/L 07/12/2025 98 - 1 07 HHCCT BUN/Creat SerPl 6.0 Ratio Below low normal 07/12/2025 10 - 2 5 HHCCT CO2 SerPl-sCnc 26.0 mmol/L 07/12/2025 22 - 33 HH CCT Creat SerPl-mCnc 0.9 mg/dL 07/12/2025 0.4 - 1.1 HH CCT Sodium SerPl-sCnc 140.0 mmol/L 07/12/2025 136 - 14 5 HHCCT Bilirub SerPl-mCnc 1.8 mg/dL Above high normal 07/12/2025 0. 2 - 1 HHCCT ALP SerPl-cCnc 238.0 U/L Above high normal 07/12/2025 32 - 1 22 HHCCT Globulin Ser Calc-mCnc 3.2 g/dL 07/12/2025 1.5 - 3.9 HHCCT AST SerPl-cCnc 40.0 U/L 07/12/2025 10 - 50 HHCC T Albumin/Glob SerPl 0.8 Ratio Below low normal 07/12/2025 1 - 3 HHCCT Prot SerPl-mCnc 5.9 g/dL Below low normal 07/12/2025 6.3 - 8.3 HHCCT ALT SerPl-cCnc 52.0 U/L Above high normal 07/12/2025 10 - 5 0 HHCCT Albumin SerPl-mCnc 2.7 g/dL Below low normal 07/12/2025 3.4 - 4.8 HHCCT Bilirub Direct SerPl-mCnc 1.3 mg/dL Above high normal 07/12/2025 0 - 0.2 HHCCT Magnesium SerPl-mCnc 1.5 mg/dL Below low normal 07/12/2025 1 .6 - 2.7 HHCCT Immature Platelet Fraction 6.1 % 07/12/2025 1.2 - 8.6 HHCCT PMV Bld Auto 10.3 fL 07/12/2025 7.5 - 12.5 HHCCT MCHC RBC Auto-mCnc 32.1 g/dL 07/12/2025 30 - 36 HHCCT Platelet num Bld Auto 125.0 Thou/uL Below low normal 025 150 - 450 HHCCT WBC num Bld Auto 4.3 Thou/uL 07/12/2025 4 - 11 HHCCT MCV RBC Auto 102.0 fL Above high normal 07/12/2025 80 - 100 HHCCT Hgb Bld-mCnc 10.8 g/dL Below low normal 07/12/2025 11.7 - 15 .7 HHCCT MCH RBC Qn Auto 32.6 pg Above high normal 07/12/2025 27 - 31 HHCCT Hct VFr Bld Auto 33.6 % Below low normal 07/12/2025 35 - 47 HHCCT RDW RBC Auto-Rto 20.2 % Above high normal 07/12/2025 11.5 - 14.5 HHCCT RBC num Bld Auto 3.31 Mil/uL Below low normal 07/12/2025 4 - 5.4 HHCCT INR PPP 0.9 07/12/2025 HHCCT Prothrombin time 11.0 seconds 07/12/2025 10 - 13.5 HHCCT Anticoagulant NO ANTI COAGULANT MEDS 07/12/2025 HHCCT POC Glucose 72.0 mg/dL 07/11/2025 65 - 99 HHCCT GFR/BSA.pred SerPlBld [id number] 65.0 07/11/2025 59 - HHCCT Creat SerPl-mCnc 0.89 mg/dL 07/11/2025 0.4 - 1.1 H HCCT Anion Gap Bld-sCnc 19.0 Above high normal 07/11/2025 7 - 17 HHCCT Glucose SerPl-mCnc 68.0 mg/dL 07/11/2025 65 - 99 HHCCT Calcium SerPl-mCnc 8.0 mg/dL Below low normal 07/11/2025 8.7 - 10.5 HHCCT Chloride SerPl-sCnc 98.0 mmol/L 07/11/2025 98 - 10 7 HHCCT BUN/Creat SerPl 8.0 Ratio Below low normal 07/11/2025 10 - 2 5 HHCCT CO2 SerPl-sCnc 23.0 mmol/L 07/11/2025 22 - 33 HH CCT Potassium SerPl-sCnc 3.3 mmol/L Below low normal 07/11/2025 3.4 - 5.3 HHCCT Sodium SerPl-sCnc 140.0 mmol/L 07/11/2025 136 - 14 5 HHCCT BUN SerPl-mCnc 7.0 mg/dL Below low normal 07/11/2025 8 - 21 HHCCT ALT SerPl-cCnc 72.0 U/L Above high normal 07/11/2025 10 - 5 0 HHCCT Globulin Ser Calc-mCnc 3.0 g/dL 07/11/2025 1.5 - 3.9 HHCCT Bilirub Direct SerPl-mCnc 2.1 mg/dL Above high normal 07/11/2025 0 - 0.2 HHCCT ALP SerPl-cCnc 282.0 U/L Above high normal 07/11/2025 32 - 1 22 HHCCT AST SerPl-cCnc 77.0 U/L Above high normal 07/11/2025 10 - 5 0 HHCCT Albumin/Glob SerPl 0.9 Ratio Below low normal 07/11/2025 1 - 3 HHCCT Prot SerPl-mCnc 5.8 g/dL Below low normal 07/11/2025 6.3 - 8.3 HHCCT Bilirub SerPl-mCnc 2.9 mg/dL Above high normal 07/11/2025 0. 2 - 1 HHCCT Albumin SerPl-mCnc 2.8 g/dL Below low normal 07/11/2025 3.4 - 4.8 HHCCT Immature Platelet Fraction 7.9 % 07/11/2025 1.2 - 8.6 HHCCT WBC num Bld Auto 4.3 Thou/uL 07/11/2025 4 - 11 HHCCT MCHC RBC Auto-mCnc 33.2 g/dL 07/11/2025 30 - 36 HHCCT RBC num Bld Auto 3.18 Mil/uL Below low normal 07/11/2025 4 - 5.4 HHCCT RDW RBC Auto-Rto 20.0 % Above high normal 07/11/2025 11.5 - 14.5 HHCCT Platelet num Bld Auto 116.0 Thou/uL Below low normal 025 150 - 450 HHCCT Hgb Bld-mCnc 10.6 g/dL Below low normal 07/11/2025 11.7 - 15 .7 HHCCT MCH RBC Qn Auto 33.3 pg Above high normal 07/11/2025 27 - 31 HHCCT MCV RBC Auto 100.0 fL 07/11/2025 80 - 100 HHCCT Hct VFr Bld Auto 31.9 % Below low normal 07/11/2025 35 - 47 HHCCT PMV Bld Auto 11.1 fL 07/11/2025 7.5 - 12.5 HHCCT INR PPP 0.9 07/11/2025 HHCCT Prothrombin time 11.0 seconds 07/11/2025 10 - 13.5 HHCCT Anticoagulant NO ANTI COAGULANT MEDS 07/11/2025 HHCCT POC Glucose 89.0 mg/dL 07/10/2025 65 - 99 HHCCT Folate SerPl-mCnc >20.0 ng/mL 07/10/2025 7.2 - HHCCT MCV RBC Auto 101.0 fL Above high normal 07/10/2025 80 - 100 HHCCT RDW RBC Auto-Rto 20.3 % Above high normal 07/10/2025 11.5 - 14.5 HHCCT PMV Bld Auto 10.9 fL 07/10/2025 7.5 - 12.5 HHCCT Eosinophil num Bld Auto 0.07 Thou/uL 07/10/2025 0 - 0.7 HHCCT Monocytes/leuk NFr Bld Auto 12.6 % 07/10/2025 HHCCT MCHC RBC Auto-mCnc 32.1 g/dL 07/10/2025 30 - 36 HHCCT Immature Platelet Fraction 6.9 % 07/10/2025 1.2 - 8.6 HHCCT Monocytes num Bld Auto 0.54 Thou/uL 07/10/2025 0.2 - 1.5 HHCCT Eosinophil/leuk NFr Bld Auto 1.6 % 07/10/2025 HHCCT Platelet num Bld Auto 99.0 Thou/uL Below low normal 07/10/20 25 150 - 450 HHCCT WBC num Bld Auto 4.3 Thou/uL 07/10/2025 4 - 11 HHCCT MCH RBC Qn Auto 32.5 pg Above high normal 07/10/2025 27 - 31 HHCCT Hgb Bld-mCnc 10.7 g/dL Below low normal 07/10/2025 11.7 - 15 .7 HHCCT Hct VFr Bld Auto 33.3 % Below low normal 07/10/2025 35 - 47 HHCCT Imm Granulocytes num Bld Auto 0.02 Thou/uL 07/10/2025 0 - 0.1 HHCCT Imm Granulocytes/leuk NFr Bld Auto 0.5 % 07/10/2025 HHCCT Basophils num Bld Auto 0.04 Thou/uL 07/10/2025 0 - 0.2 HHCCT Lymphocytes num Bld Auto 0.49 Thou/uL Below low normal 07/10/2025 1.5 - 4.5 HHCCT Neutrophils/leuk NFr Bld Auto 73.0 % 07/10/2025 HHCCT Lymphocytes/leuk NFr Bld Auto 11.4 % 07/10/2025 HHCCT Neutrophils num Bld Auto 3.12 Thou/uL 07/10/2025 2 - 7.5 HHCCT Basophils/leuk NFr Bld Auto 0.9 % 07/10/2025 HHCCT RBC num Bld Auto 3.29 Mil/uL Below low normal 07/10/2025 4 - 5.4 HHCCT Lactate SerPl-sCnc 1.0 mmol/L 07/10/2025 0.5 - 1.9 HHCCT Magnesium SerPl-mCnc 1.8 mg/dL 07/10/2025 1.6 - 2. 7 HHCCT Vit B12 SerPl-mCnc 1778.0 pg/mL Above high normal 07/10/2025 243 - 894 HHCCT Bilirub Direct SerPl-mCnc 3.1 mg/dL Above high normal 07/10/2025 0 - 0.2 HHCCT TIBC SerPl-mCnc 173.0 ug/dL 07/10/2025 100 - 400 H HCCT Iron Satn MFr SerPl 27.0 % 07/10/2025 20 - 50 HHCCT UIBC SerPl-mCnc 126.0 ug/dL 07/10/2025 112 - 346 H HCCT Iron SerPl-mCnc 47.0 ug/dL Below low normal 07/10/2025 59 - 151 HHCCT Sodium SerPl-sCnc 139.0 mmol/L 07/10/2025 136 - 14 5 HHCCT GFR/BSA.pred SerPlBld [id number]-HaMByp 68.0 07/10/2025 59 - HHCCT Chloride SerPl-sCnc 102.0 mmol/L 07/10/2025 98 - 1 07 HHCCT Calcium SerPl-mCnc 7.9 mg/dL Below low normal 07/10/2025 8.7 - 10.5 HHCCT Albumin/Glob SerPl 0.8 Ratio Below low normal 07/10/2025 1 - 3 HHCCT BUN SerPl-mCnc 7.0 mg/dL Below low normal 07/10/2025 8 - 21 HHCCT Potassium SerPl-sCnc 3.0 mmol/L Below low normal 07/10/2025 3.4 - 5.3 HHCCT Anion Gap Bld-sCnc 11.0 07/10/2025 7 - 17 HHCCT Globulin Ser Calc-mCnc 3.0 g/dL 07/10/2025 1.5 - 3.9 HHCCT Bilirub SerPl-mCnc 4.1 mg/dL Above high normal 07/10/2025 0. 2 - 1 HHCCT CO2 SerPl-sCnc 26.0 mmol/L 07/10/2025 22 - 33 HH CCT ALT SerPl-cCnc 95.0 U/L Above high normal 07/10/2025 10 - 5 0 HHCCT BUN/Creat SerPl 8.0 Ratio Below low normal 07/10/2025 10 - 2 5 HHCCT Glucose SerPl-mCnc 77.0 mg/dL 07/10/2025 65 - 99 HHCCT Prot SerPl-mCnc 5.5 g/dL Below low normal 07/10/2025 6.3 - 8.3 HHCCT AST SerPl-cCnc 169.0 U/L Above high normal 07/10/2025 10 - 5 0 HHCCT Albumin SerPl-mCnc 2.5 g/dL Below low normal 07/10/2025 3.4 - 4.8 HHCCT ALP SerPl-cCnc 311.0 U/L Above high normal 07/10/2025 32 - 1 22 HHCCT Creat SerPl-mCnc 0.85 mg/dL 07/10/2025 0.4 - 1.1 H HCCT POC Glucose 99.0 mg/dL 07/09/2025 65 - 99 HHCCT Lymphocytes/leuk NFr Bld Auto 8.6 % 07/09/2025 HHCCT MCV RBC Auto 100.0 fL 07/09/2025 80 - 100 HHCCT Hgb Bld-mCnc 10.1 g/dL Below low normal 07/09/2025 11.7 - 15 .7 HHCCT Platelet num Bld Auto 127.0 Thou/uL Below low normal 025 150 - 450 HHCCT Eosinophil/leuk NFr Bld Auto 0.1 % 07/09/2025 HHCCT MCH RBC Qn Auto 32.4 pg Above high normal 07/09/2025 27 - 31 HHCCT Basophils/leuk NFr Bld Auto 0.4 % 07/09/2025 HHCCT Imm Granulocytes num Bld Auto 0.04 Thou/uL 07/09/2025 0 - 0.1 HHCCT Immature Platelet Fraction 6.8 % 07/09/2025 1.2 - 8.6 HHCCT Imm Granulocytes/leuk NFr Bld Auto 0.6 % 07/09/2025 HHCCT Monocytes num Bld Auto 0.66 Thou/uL 07/09/2025 0.2 - 1.5 HHCCT Hct VFr Bld Auto 31.3 % Below low normal 07/09/2025 35 - 47 HHCCT WBC num Bld Auto 6.8 Thou/uL 07/09/2025 4 - 11 HHCCT Eosinophil num Bld Auto 0.01 Thou/uL 07/09/2025 0 - 0.7 HHCCT Neutrophils/leuk NFr Bld Auto 80.6 % 07/09/2025 HHCCT Monocytes/leuk NFr Bld Auto 9.7 % 07/09/2025 HHCCT Basophils num Bld Auto 0.03 Thou/uL 07/09/2025 0 - 0.2 HHCCT MCHC RBC Auto-mCnc 32.3 g/dL 07/09/2025 30 - 36 HHCCT Neutrophils num Bld Auto 5.46 Thou/uL 07/09/2025 2 - 7.5 HHCCT RDW RBC Auto-Rto 20.3 % Above high normal 07/09/2025 11.5 - 14.5 HHCCT Lymphocytes num Bld Auto 0.58 Thou/uL Below low normal 07/09/2025 1.5 - 4.5 HHCCT RBC num Bld Auto 3.12 Mil/uL Below low normal 07/09/2025 4 - 5.4 HHCCT PMV Bld Auto 10.5 fL 07/09/2025 7.5 - 12.5 HHCCT Potassium SerPl-sCnc 3.4 mmol/L 07/09/2025 3.4 - 5 .3 HHCCT CO2 SerPl-sCnc 25.0 mmol/L 07/09/2025 22 - 33 HH CCT Prot SerPl-mCnc 5.4 g/dL Below low normal 07/09/2025 6.3 - 8.3 HHCCT Anion Gap Bld-sCnc 11.0 07/09/2025 7 - 17 HHCCT Glucose SerPl-mCnc 91.0 mg/dL 07/09/2025 65 - 99 HHCCT GFR/BSA.pred SerPlBld [id number] 76.0 07/09/2025 59 - HHCCT Chloride SerPl-sCnc 102.0 mmol/L 07/09/2025 98 - 1 07 HHCCT Creat SerPl-mCnc 0.78 mg/dL 07/09/2025 0.4 - 1.1 H HCCT ALT SerPl-cCnc 105.0 U/L Above high normal 07/09/2025 10 - 5 0 [facility] Bilirub SerPl-mCnc 5.1 mg/dL Above high normal 07/09/2025 0. 2 - 1 [facility] Albumin SerPl-mCnc 2.6 g/dL Below low normal 07/09/2025 3.4 - 4.8 [facility] Calcium SerPl-mCnc 7.5 mg/dL Below low normal 07/09/2025 8.7 - 10.5 [facility] Globulin Ser Calc-mCnc 2.8 g/dL 07/09/2025 1.5 - 3.9 [facility] ALP SerPl-cCnc 340.0 U/L Above high normal 07/09/2025 32 - 1 22 [facility] BUN/Creat SerPl 10.0 Ratio 07/09/2025 10 - 25 HH CCT BUN SerPl-mCnc 8.0 mg/dL 07/09/2025 8 - 21 [facility] T Sodium SerPl-sCnc 138.0 mmol/L 07/09/2025 136 - 14 5 [facility] AST SerPl-cCnc 308.0 U/L Above high normal 07/09/2025 10 - 5 0 [facility] Albumin/Glob SerPl 0.9 Ratio Below low normal 07/09/2025 1 - 3 [facility] Lipase SerPl-cCnc 47.0 U/L 07/09/2025 13 - 60 [facility] Magnesium SerPl-mCnc 1.7 mg/dL 07/09/2025 1.6 - 2. 7 [facility] Prothrombin time 12.8 seconds 07/09/2025 10 - 13.5 [facility] INR PPP 1.1 07/09/2025 [facility] Anticoagulant OTHER AGENT OR UNKNOWN 07/09/2025 [facility] Encounters Encounter Type Encounter Reason Primary Diagnosis Location Date Inpatient Calculus of bile alok t without cholangitis or cholecystitis without obstruction Calculus of bile duct without cholangitis or cholecystitis without obstruction [facility] 07/09/2025 Care Team Organization Name Specialty Phone Email Start Date End Oscar martinez [facility] 07/09/2025 08/07/2025 [facility] Primary [facility] 07/09/2025 [facility] 07/09/2025
--- OUTSIDE RECORDS SUMMARY | 2025-10-15 13:26 | XMS_ITS | Encounter Summary ---
Author Organization [facility] Address [address] [place] [address] Phone Care Team Providers Care Patient Coordinator Front Desk Name Role Phone Ric Schafer MD Primary Care Provider [phone] Encounter Details Date Type Department Care Team (Late st Contact Info) Description 12/29/2020 Transcribe Orders [facility] Specimen Processing [address] [place] [address] Kenneth Krishna MD [address] [facility], [address], [address] [place] [address] [email or web address] Routine general medical examination at a health [...] EST) MAGNESIUM 2.1 1.6 - 2.6 mg/dL [facility] Blood 12/29/2020 5:49 AM EST 12/29/2020 9:17 AM EST us Kenneth Krishna MD LAB BLOOD BKR ORDERABLES Final R esult [facility] [address] [place] [address] documented in this encounter Visit Diagnoses Diagnosis Routine general medical examination at a health care facility- Primary documented in this encounter Care Teams Patient Coordinator Front Desk Relationship Specialty Start Date End Date Ric Schafer MD [email or web address] PCP - General Hospitalist 11/13/20 documented as of this encounter Additional Source Comments The information contained in this document represents components of the legal health record. It is not the complete legal health record.[facility]
--- OUTSIDE RECORDS SUMMARY | 2025-10-15 13:26 | XMS_ITS | Clinical Summary ---
Author Organization [facility] Address [address] [place] [address] Phone Care Team Providers Care Parts Product Analyst Name Role Phone Ric Schafer MD Primary Care Provider [phone] Allergies Active Allergy Reactions Criticality Noted Date [...] MOM). Active monobasic and dibasic sodium phosphates (68996 ENEMA) 19-7 gram/[address] 1 [...] Insurance [place] [id number] [facility] MEDEX SUPPLEMENT MEDICARE PART A & B [employer]OSS MEDEX SUPPLEMENT MEDICARE PART A & B [employer] MEDEX SUPPLEMENT MEDICARE PART A & B [employer] MEDEX SUPPLEMENT MEDICARE PART A & B [employer] MEDEX SUPPLEMENT MEDICARE PART A & B [facility] MEDEX SUPPLEMENT MEDICARE PART A & B [employer] MEDEX SUPPLEMENT MEDICARE PART A & B [employer] MEDEX SUPPLEMENT MEDICARE PART A & B [employer] MEDEX SUPPLEMENT Advance Directives For more information, please contact: [phone] (9AM - 5PM [facility], Tuesday-Tuesday) Documents on File Type Date Recorded Patient Engineering Test Specialist Expl anation MOLST 12/10/2020 3:28 PM Healthcare Proxy 12/01/2020 7:46 PM Care Teams Parts Product Analyst Relationship Specialty Start Date End Date Ric Schafer MD [email or web address] PCP - General Hospitalist 11/13/20 Additional Source Comments The information contained in this document represents components of the legal health record. It is not the complete legal health record.[facility]
== END 2025-10-15 13:41 | disposition home or self-care (01) ==
LOC: HO.HMCH 12:20
PROVIDERS: PCP Internal Medicine; Visit Provider Internal Medicine
DX: K80.50 Calculus of bile duct without cholangitis or cholecystitis without obstruction (principal); K21.9 Gastro-esophageal reflux disease without esophagitis; I10 Essential (primary) hypertension; E78.00 Pure hypercholesterolemia, unspecified; Z86.711 Personal history of pulmonary embolism; M85.80 Other specified disorders of bone density and structure, unspecified site; Z85.3 Personal history of malignant neoplasm of breast; S72.92XA Unspecified fracture of left femur, initial encounter for closed fracture; R20.0 Anesthesia of skin; W19.XXXA Unspecified fall, initial encounter; R29.6 Repeated falls

== ENCOUNTER → 2025-10-15 12:19 | Outpatient (BNVA) | payer MEDICARE, SELFPAY | PROVIDERS: Visit Provider Internal Medicine | DX: K21.9 Gastro-esophageal reflux disease without esophagitis (principal); R20.0 Anesthesia of skin; K80.50 Calculus of bile duct without cholangitis or cholecystitis without obstruction; I10 Essential (primary) hypertension; M85.80 Other specified disorders of bone density and structure, unspecified site; R29.6 Repeated falls; E78.00 Pure hypercholesterolemia, unspecified; Z86.711 Personal history of pulmonary embolism; Z85.3 Personal history of malignant neoplasm of breast; Z87.81 Personal history of (healed) traumatic fracture; Z79.899 Other long term (current) drug therapy | CPT/HCPCS: 99212 ==